=== PATIENT | male | born 1945 | race Caucasian/White ===

== ENCOUNTER 2016-12-10 15:35 | Inpatient (IN) | payer MEDICARE ==
--- NOTE | 2016-12-10 17:20 | ED ---
Wound/Laceration HPI - General Source: patient, RN notes reviewed Mode of arrival: ambulatory Limitations: no limitations <Alen Meeks - Last Filed: 12/10/16 18:37> <Mushtaq Quintanilla - Last Filed: 12/10/16 21:50> - General Chief Complaint: Wound/Laceration Stated Complaint: L foot pain Time Seen by Provider: 12/10/16 17:00 - History of Present Illness Initial Comments: 71-year-old male presents emergency Department with chief complaint of left foot wound. Patient states that his been dealing with a foot wound for several months. Patient had a second toe amputation in August. Patient has a first and second toe amputation out. Patient states that he has a wound VAC on that area. Patient states he now has a lateral foot wound and increase in size. Patient states that they believe this is infected with increased pain, redness. Patient has known peripheral vascular disease. Patient sees Dr. Franco at the wound center. Patient was seen by visiting nurse today who called Salvador in which she advised him to come emergency department secondary to increase in size and possible osteomyelitis. Patient states that he just finished Cipro yesterday in which she was on a course for 30 days. Patient denies any fever, chills. Denies any calf pain or calf swelling. (Alen Meeks) - Related Data Home Medications Medication Instructions Recorded Confirmed Atorvastatin Calcium 10 mg PO HS 08/29/16 12/10/16 Insulin NPH Hum/Reg Insulin Hm 22 unit SQ AC-BID 09/15/16 12/10/16 [humuLIN 70/30 Kwikpen] cloNIDine HCL [Catapres] 0.1 mg PO BID 10/25/16 12/10/16 Ascorbic Acid [Vitamin C] 500 mg PO TID 12/10/16 12/10/16 Ciprofloxacin HCl [Cipro] 500 mg PO Q12HR 12/10/16 12/10/16 Losartan Potassium [Cozaar] 100 mg PO DAILY 12/10/16 12/10/16 Metoprolol Tartrate [Lopressor] 100 mg PO BID 12/10/16 12/10/16 Naproxen Sodium [Aleve] 440 mg PO DAILY 12/10/16 12/10/16 Allergies Allergy/AdvReac Type Severity Reaction Status Date / Time amlodipine Allergy Anaphylaxis Verified 12/10/16 16:17 lisinopril Allergy tongue Verified 11/29/16 13:08 swelling vancomycin Allergy Unknown Verified 12/10/16 21:05 Review of Systems ROS Other: All systems not noted in ROS Statement are negative. <Alen Meeks - Last Filed: 12/10/16 18:37> ROS Other: All systems not noted in ROS Statement are negative. <Mushtaq Quintanilla - Last Filed: 12/10/16 21:50> ROS Statement: Those systems with pertinent positive or pertinent negative responses have been documented in the HPI. Past Medical History Past Medical History: Diabetes Mellitus, Deep Vein Thrombosis (DVT), Hyperlipidemia, Hypertension Additional Past Medical History / Comment(s): neuropathy, stage 3 kidney disease ; HX of DVt's in legs arm, chest; chronic wound left foot History of Any Multi-Drug Resistant Organisms: MRSA Date of last positivie culture/infection: 2006 MDRO Source:: lt. 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 Has lived in [place] as well as [place]. He did spend 25 years and [place]. We're worked as a [employer]. He's also been a meza. Moved back to this region so that he could be close to his 3 children. Relates he stopped smoking several years ago. He has no significant history of alcohol or recreational drug use. No international travel. No experience. No animal exposures Smoking Status: Never smoker Past Alcohol Use History: None Reported Past Drug Use History: None Reported - Past Family History Father Family Medical History: Deep Vein Thrombosis (DVT) <Alen Meeks - Last Filed: 12/10/16 18:37> General Exam Limitations: no limitations General appearance: alert, in no apparent distress Head exam: Present: atraumatic, normocephalic, normal inspection Neck exam: Present: normal inspection. Absent: tenderness, meningismus, lymphadenopathy Respiratory exam: Present: normal lung sounds bilaterally. Absent: respiratory distress, wheezes, rales, rhonchi, stridor Cardiovascular Exam: Present: regular rate, normal rhythm, normal heart sounds. Absent: systolic murmur, diastolic murmur, rubs, gallop, clicks Extremities exam: Present: other (Left foot there is an amputation noted of the first and second digit with wound VAC over the second digit there is a lateral foot wound at the MTP region which measures approximately 1 cm x 1 cm and 0.5 cm deep, there is surrounding erythema and purulent drainage noted wound culture was obtained) Skin exam: Present: warm, dry <Alen Meeks - Last Filed: 12/10/16 18:37> Medical Decision Making - Lab Data Result diagrams: 12/10/16 17:35 12/10/16 17:35 <Alen Meeks - Last Filed: 12/10/16 18:37> - Lab Data Result diagrams: 12/10/16 17:35 12/10/16 17:35 <Mushtaq Quintanilla - Last Filed: 12/10/16 21:50> - Medical Decision Making 71-year-old male presented for left foot wound. On x-ray there appears to be some changes to the fifth metatarsal concerns for approximately this. Patient be admitted at this time for IV antibiotics. (Alen Meeks) While in emergency room the patient started to vomit a large amount of the previous meal. Became diaphoretic eyes rolled back. This lasted approximately 3 minutes. Patient then returned to baseline alert and oriented with a normal neuro exam. Family reports the patient had had problems with nausea vomiting vancomycin in the past. Never had any anaphylactic type reaction. No history of seizures. Patient was given IV Benadryl, Pepcid and Solu-Medrol. His vancomycin was stopped he only received a small amount and will be switched to clindamycin. Checks x-rays being taken to rule out aspiration.. Dr. Quintanilla Chest x-ray is done AP and lateral view and reviewed by radiologist radiologist his impression is; heart and mediastinum are normal. There is some mild linear density at the right lung base. There is no heart failure. There are no hilar masses. Trachea is midline. Costophrenic angles are clear. Bony thorax is intact. Impression; mild subsegmental atelectasis at the right lung base. Normal heart. No pulmonary consolidation. As read by Dr. Leslie The patient is doing much better at this time. Back to baseline per patient and at bedside. Patient will be sent to the floor. Dr[facility] - Lab Data Lab Results 12/10/16 12/10/16 Range/Units 17:35 17:35 WBC 8.8 (3.8-10.6) k/uL RBC 4.94 (4.30-5.90) m/uL Hgb 13.6 (13.0-17.5) gm/dL Hct 41.1 (39.0-53.0) % MCV 83.1 D (80.0-100.0) fL MCH 27.6 (25.0-35.0) pg MCHC 33.2 (31.0-37.0) g/dL RDW 14.7 (11.5-15.5) % Plt Count 170 D (150-450) k/uL Neutrophils % 80 % Lymphocytes % 8 % Monocytes % 6 % Eosinophils % 4 % Basophils % 0 % Neutrophils # 7.1 (1.3-7.7) k/uL Lymphocytes # 0.7 L (1.0-4.8) k/uL Monocytes # 0.5 (0-1.0) k/uL Eosinophils # 0.4 (0-0.7) k/uL Basophils # 0.0 (0-0.2) k/uL ESR 52 H (0-15) mm/hr Sodium 140 (137-145) mmol/L Potassium 5.2 H (3.5-5.1) mmol/L Chloride 105 (98-107) mmol/L Carbon Dioxide 22 (22-30) mmol/L Anion Gap 13 mmol/L BUN 30 H (9-20) mg/dL Creatinine 1.60 H (0.66-1.25) mg/dL Est GFR (MDRD) Af Amer 52 (>60 ml/min/1.73 sqM) Est GFR (MDRD) Non-Af 43 (>60 ml/min/1.73 sqM) Glucose 180 H (74-99) mg/dL Calcium 9.1 (8.4-10.2) mg/dL Total Bilirubin 0.8 (0.2-1.3) mg/dL AST 16 L (17-59) U/L ALT 32 (21-72) U/L Alkaline Phosphatase 116 (38-126) U/L C-Reactive Protein 37.4 H (<10.0) mg/L Total Protein 7.2 (6.3-8.2) g/dL Albumin 4.0 (3.5-5.0) g/dL Disposition <Alen Meeks - Last Filed: 12/10/16 18:37> <Mushtaq Quintanilla - Last Filed: 12/10/16 21:50> Clinical Impression: Diabetic foot ulcer, Osteomyelitis of left foot Disposition: ADMITTED IP TO THIS HOSP Condition: Stable
[2016-12-10 17:53] LABS: Basophils % (A) 0 %; CH 27.4; CHCM 33.1; Eosinophils # (A) 0.4 k/uL (0-0.7); Eosinophils % (A) 4 %; HCT 41.1 % (39.0-53.0); HDW 3.11; HGB 13.6 gm/dL (13.0-17.5); Luc # (Auto) 0.15; Luc % (Auto) 2; Lymphocytes # (A) 0.7 k/uL (1.0-4.8); Lymphocytes % (A) 8 %; MCH 27.6 pg (25.0-35.0); MCHC 33.2 g/dL (31.0-37.0); Mean Platelet Volume 10.6; Monocytes # (A) 0.5 k/uL (0-1.0); Monocytes % (A) 6 %; Neutrophils # (A) 7.1 k/uL (1.3-7.7); Neutrophils % (A) 80 %; RBC 4.94 m/uL (4.30-5.90); RDW 14.7 % (11.5-15.5); WBC 8.8 k/uL (3.8-10.6); WBC (Perox) 9.17
[2016-12-10 17:54] LABS: MCV 83.1 fL (80.0-100.0)
[2016-12-10 18:06] LABS: C Reactive Protein 37.4 mg/L (<10.0); Calcium 9.1 mg/dL (8.4-10.2); Potassium 5.2 mmol/L (3.5-5.1); Total Bilirubin 0.8 mg/dL (0.2-1.3); Total Protein 7.2 g/dL (6.3-8.2)
--- NOTE | 2016-12-10 18:15 | XR ---
EXAMINATION TYPE: XR foot complete LT DATE OF EXAM: 12/10/2016 5:53 PM COMPARISON: NONE HISTORY: Wound on the lateral foot TECHNIQUE: 3 views FINDINGS: There is multiple amputation deformities of the left foot at the level of first second and third metatarsal heads. There is some tubing over the distal second metatarsal which appears to have had be second metatarsal head amputated. I see no focal bone destruction. The lateral aspect of the f oot shows no focal bone destruction. IMPRESSION: Multiple amputation deformities. No evidence of oste omyelitis.
[2016-12-10] MEDS ORDERED: IV VANCOMYCIN PER PHARMACY 1 EACH MISC MISCELLANE PRN (18:38)
[2016-12-10] MEDS ORDERED: ONDANSETRON 4 MG/2 ML VIAL IVP PRN (18:39)
[2016-12-10] MEDS ORDERED: NALOXONE 0.4 MG/ML 1 ML VIAL IV PRN (18:39)
[2016-12-10] MEDS ORDERED: MORPHINE SULFATE 4 MG/ML SYRINGE IV PRN (18:39)
[2016-12-10] MEDS: cloNIDine HCL 0.1 MG TAB PO SCH (18:52)
[2016-12-10] MEDS ORDERED: METOPROLOL TARTRATE 25 MG TAB PO STA (18:52)
[2016-12-10] MEDS ORDERED: VANCOMYCIN 1,750 MG in SODIUM CHLORIDE 0.9% 250 ML IVPB ONE (19:00)
[2016-12-10 19:03] LABS: Erythrocyte Sedimentation Rate 52 mm/hr (0-15)
[2016-12-10] MEDS ORDERED: diphenhydrAMINE 50 MG/ML 1 ML VIAL IVP PRN (20:36)
[2016-12-10] MEDS ORDERED: methylPREDNISolone SOD SUCCI 125 MG/2 ML VIAL IV STA (20:59)
[2016-12-10] MEDS ORDERED: FAMOTIDINE 20 MG/2 ML VIAL IV STA (20:59)
[2016-12-10 21:02] LABS: Glucose,Whole Blood 235 mg/dL (75-99)
[2016-12-10] MEDS ORDERED: CLINDAMYCIN 600 MG in DEXTROSE 5% IN WATER 50 ML IVPB STA ×2 (21:06)
--- NOTE | 2016-12-10 21:42 | XR ---
EXAMINATION TYPE: XR chest 2V DATE OF EXAM: 12/10/2016 9:34 PM COMPARISON: NONE HISTORY: Aspiration. TECHNIQUE: Frontal and lateral views of the chest are obtained. FINDINGS: Heart and mediastinum are normal. There is some mild linear density at the right lung base . There is no heart failure. There are no hilar masses. Trachea is midline. Costophrenic angles are c lear. The bony thorax is intact. IMPRESSION: Mild subsegmental atelectasis at the right lung base. Normal heart. No pulmonary consolid ation.
[2016-12-10] MEDS ORDERED: METOCLOPRAMIDE 5 MG/ML 2 ML VIAL IVP STA (21:55)
[2016-12-10] MEDS: SODIUM CHLORIDE 0.9% 1,000 ML IV SCH (21:58)
[2016-12-10 23:17] VITALS: BMI 28.7
[2016-12-10] MEDS: ATORVASTATIN 10 MG TAB PO SCH (23:40)
[2016-12-11] MEDS ORDERED: INSULIN NPH/REG INSULIN 70/30 300 UNIT/3 ML VIAL SQ SCH (07:30)
[2016-12-11 08:13] LABS: Glucose,Whole Blood 370 mg/dL (75-99)
[2016-12-11] MEDS: cloNIDine HCL 0.1 MG TAB PO SCH (08:26)
[2016-12-11] MEDS: METOPROLOL TARTRATE 50 MG TAB PO SCH ×2 (08:26→21:51)
[2016-12-11] MEDS ORDERED: LOSARTAN 50 MG TAB PO SCH (09:00)
[2016-12-11] MEDS ORDERED: VANCOMYCIN 1,750 MG in SODIUM CHLORIDE 0.9% 250 ML IVPB SCH (09:00)
[2016-12-11 09:45] LABS: Glucose,Whole Blood 481 mg/dL (75-99)
[2016-12-11 09:45] LABS: Glucose,Whole Blood 489 mg/dL (75-99)
[2016-12-11 10:16] LABS: Glucose,Whole Blood 478 mg/dL (75-99)
[2016-12-11 10:18] LABS: Glucose,Whole Blood 500 mg/dL (75-99)
[2016-12-11] MEDS ORDERED: cloNIDine HCL 0.1 MG TAB PO STA (11:11)
[2016-12-11] MEDS: SODIUM CHLORIDE 0.9% 1,000 ML IV SCH (11:22)
[2016-12-11 11:47] LABS: Glucose,Whole Blood 529 mg/dL (75-99)
[2016-12-11] MEDS: INSULIN REGULAR 100 UNIT in SODIUM CHLORIDE 0.9% 100 ML IV SCH ×2 (12:00→15:28)
[2016-12-11] MEDS ORDERED: NAPROXEN 250 MG TAB PO SCH (12:15)
[2016-12-11] MEDS ORDERED: INSULIN LISPRO (humaLOG) 300 UNIT/3 ML VIAL SQ SCH (12:30)
--- NOTE | 2016-12-11 12:59 | P.GSCN ---
History of Present Illness Consult date: 12/11/16 Reason for Consult: osteomyelitis, deep tissue infection left forefoot, critical left foot ischemia Requesting physician: Rk Crockett History of present illness: impression; 1. infected left foot ulcer with osteomyelitis of the 5th metatarsal head, critical left foot ischemia 2. s/p left popliteal to posterior tibial bypass that has failed 3. diabetes mellitus 4. stage III CKD 5. uncontrolled diabetes mellitus plan; 1. begin IV antibiotics; culture results are pending 2. will review arteriogram performed at [facility] in September 2016; re: options for revascularization appear limited based on history, patient may require left below knee amputation for wound healing and control of infection 3. dressing changes as ordered 4. following; Dr. Franco will see on 12/13/2016 71 y/o man, very well known to DR. Franco's service, underwent left second and third toe amputations in August 2016 and developed left foot ulceration overlying left 5th metatarsal head. Has been on course of oral Cipro that recently finished on 12/09/2016. Developed worsening pain in left forefoot over the past two days. Seen by home health nurse who had concerns about infection. Patient was seen in ER and given IV vanco; developed anaphylactic reaction that included vomiting. Blood sugar is currently >[address] CMHx; DM, HTN, PAD, Stage III CKD, hyperlipidemia PSHx; bilateral popliteal to posterior tibial bypass; left bypass is occluded, herniorraphy, right third toe amputation, left great toe amputation, DVT in upper and lower extrmities, Habits; denies tobacco, EtOH, or drugs FHx; non-contributory PE: BP = 214/120, 82, 18, AF HEENT: no bruits, no JVD ABD; soft, non-tender, no palpable pulsatile organomegaly EXTR; femoral and popliteal pulses are palpable; pedal pulses are not palpable bilaterally; there is a pulse in the right popliteal to posterior tibial graft; right foot is viable with healed 3rd toe amputation site; left foot demonstrates no palpable pedal pulses; the second and third toe amputation site demonstrates pale granulation tissue with no rafael purulence; the left lateral ulcer overlying the metatarsal head has a small amount of purulent drainage; the tissue overlying the metatarsal head separates easily and is in direct contact with probe; there is no ascending infection that is immediately visible and no abscess Past Medical History Past Medical History: Diabetes Mellitus, Deep Vein Thrombosis (DVT), Hyperlipidemia, Hypertension Additional Past Medical History / Comment(s): neuropathy, stage 3 kidney disease ; HX of DVt's in legs, arm, chest; chronic wound left foot History of Any Multi-Drug Resistant Organisms: MRSA Year Discovered:: 2006 MDRO Source:: lt. 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 He did spend 25 years and [place]. We're worked as a [employer]. He's also been a meza. Moved back to this region so that he could be close to his 3 children. Relates he stopped smoking several years ago. He has no significant history of alcohol or recreational drug use. No international travel. No experience. No animal exposures Smoking Status: Never smoker Past Alcohol Use History: None Reported Past Drug Use History: None Reported - Past Family History Father Family Medical History: Deep Vein Thrombosis (DVT) Medications and Allergies Home Medications Medication Instructions Recorded Confirmed Type Atorvastatin Calcium 10 mg PO HS 08/29/16 12/10/16 History Insulin NPH Hum/Reg Insulin Hm 22 unit SQ AC-BID 09/15/16 12/10/16 History [humuLIN 70/30 Kwikpen] cloNIDine HCL [Catapres] 0.1 mg PO BID 10/25/16 12/10/16 History Ascorbic Acid [Vitamin C] 500 mg PO TID 12/10/16 12/10/16 History Ciprofloxacin HCl [Cipro] 500 mg PO Q12HR 12/10/16 12/10/16 History Losartan Potassium [Cozaar] 100 mg PO DAILY 12/10/16 12/10/16 History Metoprolol Tartrate [Lopressor] 100 mg PO BID 12/10/16 12/10/16 History Naproxen Sodium [Aleve] 440 mg PO DAILY 12/10/16 12/10/16 History Allergies Allergy/AdvReac Type Severity Reaction Status Date / Time amlodipine Allergy Anaphylaxis Verified 12/10/16 16:17 lisinopril Allergy tongue Verified 11/29/16 13:08 swelling vancomycin Allergy Unknown Verified 12/10/16 21:05 Surgical - Exam Vital Signs Temp Pulse Resp BP Pulse Ox 97.7 F 63 18 197/91 96 12/10/16 16:13 12/10/16 16:13 12/10/16 16:13 12/10/16 16:13 12/10/16 16:13 Results - Labs 12/10/16 17:35 12/10/16 17:35 Abnormal Lab Results - Last 24 Hours (Table) 12/10/16 12/11/16 12/11/16 Range/Units 21:00 07:43 09:33 POC Glucose (mg/dL) 235 H 370 H 481 H (75-99) mg/dL 12/11/16 12/11/16 12/11/16 Range/Units 09:34 10:14 10:15 POC Glucose (mg/dL) 489 H 478 H 500 H (75-99) mg/dL 12/11/16 Range/Units 11:46 POC Glucose (mg/dL) 529 H (75-99) mg/dL
[2016-12-11 13:06] LABS: Glucose,Whole Blood 462 mg/dL (75-99)
[2016-12-11 13:32] LABS: Glucose,Whole Blood 458 mg/dL (75-99)
[2016-12-11] MEDS: INSULIN LISPRO (humaLOG) 300 UNIT/3 ML VIAL SQ SCH ×2 (13:52→17:50)
[2016-12-11] MEDS: ASCORBIC ACID 500 MG TAB PO SCH ×3 (13:58→21:51)
[2016-12-11] MEDS: ENOXAPARIN 40 MG/0.4 ML SYRINGE SQ SCH (13:59)
[2016-12-11 14:06] LABS: Hemoglobin A1C 8.4 % (4.2-6.1)
[2016-12-11 14:10] LABS: Glucose,Whole Blood 432 mg/dL (75-99)
--- NOTE | 2016-12-11 14:20 | P.PN ---
Progress Note - Text Arteriogram performed 10/18/2017 reviewed. Demonstrates patent aortoiliac arteries bilaterally. The common, profunda and superficial femoral arteries are patent bilaterally. On the left there is severe infrapopliteal arterial occlusive disease with no named vessels noted in the lower left leg. The pedal arch is not visualized. impression; 1. irreconstructible left leg arterial occlusive disease below the popliteal artery with infected soft tissues and osteomylelitis of left foot plan; 1. as discussed in consult; best option for wound healing and control of sepsis is below knee amputation and related procedures
[2016-12-11 15:06] LABS: Glucose,Whole Blood 397 mg/dL (75-99)
[2016-12-11 15:23] LABS: Glucose,Whole Blood 348 mg/dL (75-99)
[2016-12-11 15:49] LABS: Glucose,Whole Blood 327 mg/dL (75-99)
[2016-12-11 16:30] LABS: Glucose,Whole Blood 280 mg/dL (75-99)
[2016-12-11 17:07] LABS: Glucose,Whole Blood 220 mg/dL (75-99)
--- NOTE | 2016-12-11 18:53 | HP ---
DATE OF ADMISSION: 12/10/2016 PRESENTING COMPLAINT: Left foot infection. HISTORY OF PRESENTING COMPLAINT: This is a 71 -year-old patient who follows with Dr. Victor Hugo Franco in the wound care center with extensive medical history including diabetes mellitus, type II, hypertension, hyperlipidemia, patient also has got chronic kidney disease stage III, peripheral neuropathy and peripheral artery disease, bilateral bypasses. The patient underwent left second and third toe amputation in August 2016, developed left foot ulceration over the left fifth metatarsal. Patient was given oral ciprofloxacin. Just finished a course yesterday. Patient developing worse foot pain and looking more infected. Patient also sugars running up, went up to about over 500 and I ordered insulin drip earlier today. Patient already had a previous bypass to both the legs. REVIEW OF SYSTEMS: CONSTITUTIONAL: Tired. HEENT: None. RESPIRATORY: None. CARDIOVASCULAR: None. GASTROINTESTINAL: None. GENITOURINARY: None. MUSCULOSKELETAL: Dermatologic: As above. LYMPHATICS: None. PSYCHIATRY: None. NEUROLOGICAL: Numbness in both feet. PAST MEDICAL HISTORY: Diabetes mellitus type 2, bilateral DVTs in the past, hypertension, hyperlipidemia, chronic kidney disease, stage III, peripheral neuropathy, peripheral artery disease. 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 Bypass in both the legs. SOCIAL HISTORY: . 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 The patient stopped smoking many years ago. No significant alcohol syndrome. Family history of DVT. HOME MEDICATIONS: 1. Aleve 440 mg p.o. daily. 2. Vitamin C 500 mg p.o. t.i.d., 3. Catapres 0.1 mg p.o. t.i.d. 4. Lopressor 100 mg p.o. b.i.d. 5. Cozaar 100 mg p.o. daily. 6. Humulin 70/30 22 units subcu a.c. b.i.d. 7. Lipitor 10 mg p.o. q.h.s. 8. Ciprofloxacin 500 mg q12. Last dose was yesterday. ALLERGIES: AMLODIPINE, LISINOPRIL AND VANCOMYCIN. On examination: Vital signs on presentation: Temperature 97.7, pulse 53, respirations 18, blood pressure 197/91, pulse ox 96% on room air. GENERAL APPEARANCE: Average build, sitting up, comfortable. EYES: Pupils equal. Conjunctivae normal. HEENT: External appearance of nose and ears normal. Oral cavity normal. NECK: JVD not raised. Mass not palpable. RESPIRATORY: Effort normal. Lungs are clear. CARDIOVASCULAR: First and second sounds normal. No edema. ABDOMEN: Soft, nontender. Liver and spleen not palpable. LYMPHATICS: No lymph nodes palpable in the neck or axillae. PSYCHIATRY: Alert and oriented x3. Mood and affect normal. NEUROLOGICAL: Pupils equal. Cranial nerves grossly intact. Decreased sensation distally. EXTREMITIES: Left foot wound pictures in the previous chart. INVESTIGATIONS: White count 8.8, hemoglobin 13.6, potassium 5.0, BUN 30, creatinine 1.60. Accu-Cheks a 182, 235 and went up to ( ). ASSESSMENT: 1. Left foot wound having failed outpatient treatment with known severe peripheral artery disease and the results of patient recently had angiography, results of which not known. 2. Diabetes mellitus type 2, chronically on insulin causing peripheral neuropathy. 3. Hypertension, chronic uncontrolled. 4. Hyperlipidemia. 5. Chronic kidney stage III from diabetic nephropathy and probably from hypertensive nephrosclerosis. PLAN: Since sugars are under control, the patient put on insulin drip. The patient ( ) put on a ceftaroline. Infectious disease were consulted, so is Dr. Franco. Home medications are resumed. Patient taking naproxen at home. That will be discontinued. We will give IV fluids to see if this improves renal function. Care was discussed in detail with the patient and at the bedside. Questions were answered.
[2016-12-11 19:18] LABS: Glucose,Whole Blood 207 mg/dL (75-99)
[2016-12-11 21:07] LABS: Glucose,Whole Blood 190 mg/dL (75-99)
[2016-12-11] MEDS: ATORVASTATIN 10 MG TAB PO SCH (21:51)
[2016-12-11] MEDS: cloNIDine HCL 0.2 MG TAB PO SCH (21:51)
[2016-12-11 23:27] LABS: Glucose,Whole Blood 142 mg/dL (75-99)
[2016-12-12 01:14] LABS: Glucose,Whole Blood 130 mg/dL (75-99)
[2016-12-12 03:11] LABS: Glucose,Whole Blood 139 mg/dL (75-99)
[2016-12-12] MEDS: SODIUM CHLORIDE 0.9% 1,000 ML IV SCH ×3 (05:18→19:19)
[2016-12-12 05:22] LABS: Glucose,Whole Blood 152 mg/dL (75-99)
[2016-12-12 07:29] LABS: Glucose,Whole Blood 133 mg/dL (75-99)
[2016-12-12 07:45] LABS: Potassium 4.8 mmol/L (3.5-5.1)
[2016-12-12] MEDS: METOPROLOL TARTRATE 50 MG TAB PO SCH ×2 (08:01→20:07)
[2016-12-12] MEDS: ENOXAPARIN 40 MG/0.4 ML SYRINGE SQ SCH (08:01)
[2016-12-12] MEDS: LOSARTAN 50 MG TAB PO SCH ×2 (08:01→20:07)
[2016-12-12] MEDS: ASCORBIC ACID 500 MG TAB PO SCH ×3 (08:02→20:07)
[2016-12-12] MEDS: cloNIDine HCL 0.2 MG TAB PO SCH ×2 (08:02→20:07)
[2016-12-12] MEDS: INSULIN LISPRO (humaLOG) 300 UNIT/3 ML VIAL SQ SCH ×3 (08:02→17:51)
[2016-12-12 09:13] LABS: Glucose,Whole Blood 218 mg/dL (75-99)
[2016-12-12 11:25] LABS: Glucose,Whole Blood 197 mg/dL (75-99)
--- NOTE | 2016-12-12 12:26 | P.PN ---
Progress Note - Text patient feels much better this morning still on insulin drip no adverse events overnight AF VSS EXTR; left leg is essentially unchanged impression/plan 1. critical limb ischemia with irreconstructable arterial disease, osteomyelitis and suspected deep tissue infection continue current medical regimen Dr. Franco to discuss further surgical management 12/13/2016 patient does not seem amenable to major amputation at this time
[2016-12-12 13:02] LABS: Glucose,Whole Blood 141 mg/dL (75-99)
[2016-12-12 15:03] LABS: Glucose,Whole Blood 190 mg/dL (75-99)
[2016-12-12] MEDS: LINEZOLID 600 MG in DEXTROSE/WATER 1 300ML.BAG IVPB SCH (16:17)
[2016-12-12 16:59] LABS: Glucose,Whole Blood 160 mg/dL (75-99)
[2016-12-12 19:00] LABS: Glucose,Whole Blood 198 mg/dL (75-99)
[2016-12-12] MEDS: INSULIN REGULAR 100 UNIT in SODIUM CHLORIDE 0.9% 100 ML IV SCH (19:17)
--- NOTE | 2016-12-12 19:59 | CONS ---
DATE OF CONSULTATION: 12/12/2016 REASON FOR CONSULTATION: Left foot wound with secondary MRSA infection. HISTORY OF PRESENT ILLNESS: The patient is a 71-year-old male who developed a pressure ulcer of his left foot. As this is from offloading shoes that he was wearing after the patient did have amputation of this second toe because of an infection. The patient has this wound going on since September 2016 and is being followed by Dr. Franco in the [facility]. Patient did notice having more pain in his left foot area though no significant redness or drainage. No fever and no chills. The patient was evaluated by the [facility] Care nurse and the patient advised to go to the hospital. The patient subsequently has been evaluated by the ER physician. The patient has been admitted to the hospital. The patient did have x-rays of his left foot which did show some multiple amputations and no evidence of any focal destruction. The patient did have local wound culture which is showing presumptive MRSA. The patient was started on linezolid because of inability of the Teflaro and patient did have a history of VANCOMYCIN ALLERGY. ID was consulted for further recommendation regarding antibiotic therapy. REVIEW OF SYSTEMS: CONSTITUTIONAL: Positive for weakness. No high-grade fever. EYES: No complaint. ENT: No complaint. RESPIRATORY: No complaint. GENITOURINARY: No complaint. GASTROINTESTINAL: No complaint. MUSCULOSKELETAL: As per HPI. INTEGUMENTARY: As per HPI. PSYCHOLOGICAL: No complaint. ENDOCRINE: No complaint. NEUROLOGIC: No complaint. PAST MEDICAL HISTORY: Significant for diabetes mellitus, DVT, hypertension, hyperlipidemia, chronic renal insufficiency and DVT. Left foot wound at base MRSA infection. PAST SURGICAL HISTORY: Hernia repair, malignant tumor removed from his kidney, left foot great toe and second and third toe amputation, right foot third toe amputation. SOCIAL HISTORY: No active smoking, drinking or drug use. FAMILY HISTORY: Father with history of DVT. ALLERGY TO VANCOMYCIN, LISINOPRIL AND AMLODIPINE. Medications currently include the patient is on vitamin C, Lipitor, Catapres, melatonin, Lovenox, Humalog, linezolid 600 q.12. He is on Cozaar, Lopressor, morphine sulfate, Narcan, Zofran. On examination, blood pressure is 163/73 with a pulse of 57, temperature is 97.7. He is 100% on room air. General description is an elderly male, lying in bed in no distress. No tachypnea or accessory muscle of respiration use. HEENT examination shows no pallor. No scleral icterus. Oral mucous membrane is dry. NECK: Trachea central, no thyromegaly. LUNGS: Unlabored breathing. Clear to auscultation anteriorly. HEART: S1, S2. Regular rate and rhythm. ABDOMEN: Soft. No tenderness. LEFT FOOT: Left border with infected callus and minimal surrounding erythema. No drainage. Left foot second toe amputation site looks clean. No evidence of any drainage. SKIN EXAMINATION: No rash. No mass palpable. NEUROLOGICAL: Patient awake, alert, oriented x3. Mood and affect normal. LABS: Hemoglobin is 13.6, white count of 8.8 with a BUN of 45, creatinine 1.7. Electrolytes have been normal. Wound cultures with presumptive MRSA. Blood cultures so far negative. DIAGNOSTIC IMPRESSION AND PLAN: Patient with left foot infected callus on the lateral border with secondary infection with methicillin-resistant Staphylococcus aureus in a patient who has a history of vancomycin allergy secondary to causing a seizure and unavailability of Teflaro at current facility. PLAN: 1. Await the surgical evaluation by Dr. Franco and possible removal of this infected callus and that would determine the depth of infection as well. 2. Will continue the patient on linezolid; however once the Teflaro is available will recommend switching him over to Teflaro. 3. Local wound care with [facility]. 4. Will follow up on his clinical condition and cultures to further adjust the medication if needed. Thank you for this consultation. Will follow this patient along with you. COURTNEY
[2016-12-12] MEDS: ATORVASTATIN 10 MG TAB PO SCH (20:07)
[2016-12-12 21:10] LABS: Glucose,Whole Blood 211 mg/dL (75-99)
[2016-12-12 23:01] LABS: Glucose,Whole Blood 156 mg/dL (75-99)
[2016-12-13 00:58] LABS: Glucose,Whole Blood 95 mg/dL (75-99)
[2016-12-13 02:05] LABS: Glucose,Whole Blood 103 mg/dL (75-99)
[2016-12-13] MEDS: LINEZOLID 600 MG in DEXTROSE/WATER 1 300ML.BAG IVPB SCH ×2 (02:08→13:24)
[2016-12-13 03:00] LABS: Glucose,Whole Blood 113 mg/dL (75-99)
[2016-12-13 03:59] LABS: Glucose,Whole Blood 146 mg/dL (75-99)
[2016-12-13 06:05] LABS: Glucose,Whole Blood 133 mg/dL (75-99)
[2016-12-13] MEDS ORDERED: INSULIN NPL/INSULIN LISPRO 100 UNIT/ML 10 ML VIAL (Humalog 75/25) SQ SCH (07:30)
[2016-12-13] MEDS: ASCORBIC ACID 500 MG TAB PO SCH ×3 (08:12→20:54)
[2016-12-13] MEDS: LOSARTAN 50 MG TAB PO SCH ×2 (08:12→20:55)
[2016-12-13] MEDS: cloNIDine HCL 0.2 MG TAB PO SCH ×2 (08:12→20:54)
[2016-12-13] MEDS: METOPROLOL TARTRATE 50 MG TAB PO SCH ×2 (08:13→20:54)
[2016-12-13 08:15] LABS: Glucose,Whole Blood 120 mg/dL (75-99)
[2016-12-13 10:08] LABS: Glucose,Whole Blood 225 mg/dL (75-99)
[2016-12-13] MEDS: ENOXAPARIN 40 MG/0.4 ML SYRINGE SQ SCH (11:21)
--- NOTE | 2016-12-13 11:26 | PN ---
DATE OF SERVICE: 12/12/2016 PRESENTING COMPLAINT: Left foot abscess. INTERVAL HISTORY: This is a patient with severe peripheral artery disease with left foot assess with prior intervention, started on Zyvox. Due to uncontrolled sugar has been on insulin drip, tolerating a diet. Being followed by Dr. Franco's team from vascular surgery. REVIEW OF SYSTEMS: CONSTITUTIONAL: Findings as above. CARDIOVASCULAR: Findings as above. GI: Findings as above. Pain is controlled. Current medications include insulin drip, IV linezolid. On examination, temperature 97.7, pulse 57, respirations 18, blood pressure 163/73, pulse ox 100% on room air. GENERAL APPEARANCE: Sitting up. Comfortable. EYES: Pupils equal. Conjunctivae normal. NECK: JVD not raised. Mass not palpable. RESPIRATORY: Effort normal. Lungs are clear. CARDIOVASCULAR: First and second sounds normal. No edema. ABDOMEN: Soft, ( ) palpable. Left foot wound is present, more detailed in vascular notes. INVESTIGATIONS: Accu-Cheks are noted. Potassium 4.8. BUN 45, creatinine 1.78. ASSESSMENT: 1. Left foot wound/abscess having failed outpatient treatment with known severe peripheral artery disease secondary to diabetes. 2. Diabetes mellitus type II, chronic insulin, causing peripheral neuropathy. 3. Essential hypertension, currently uncontrolled. 4. Hyperlipidemia. 5. Chronic kidney disease, stage III from diabetic nephropathy and probably hypertensive nephrosclerosis. PLAN: Continue current medication and treatment plan. Follow up with ID and vascular surgery. Will d/c patient's insulin drip in the morning and switch to Humulin 70/30. Await further decision from vascular for possible surgical intervention. Patient's wounds are growing MRSA.
[2016-12-13 12:25] LABS: Glucose,Whole Blood 190 mg/dL (75-99)
[2016-12-13] MEDS ORDERED: INSULIN NPH/REG INSULIN 70/30 300 UNIT/3 ML VIAL SQ SCH (12:30)
[2016-12-13] MEDS: SODIUM CHLORIDE 0.9% 1,000 ML IV SCH (13:26)
[2016-12-13 14:25] LABS: Glucose,Whole Blood 238 mg/dL (75-99)
--- NOTE | 2016-12-13 16:02 | P.PN ---
Progress Note - Text 71 old white male known to me from wound clinic patient had a left second toe amputation done in the past for infected gangrene he is been coming to the wound clinic for local wound care Patient had angiogram done which showed severe infrapopliteal occlusive disease not a candidate for revascularization patient also has a wound on the lateral aspect of the left foot Medical history history of diabetes peripheral vascular disease Eschen is an IV antibiotic under care of Dr. Cowart the wound bed looks clean we will continue with local wound care and IV antibiotic we have discussed about the hyperbaric chamber patient will be followed in the wound clinic when discharged from the hospital in the meantime continue with local wound care and IV antibiotic
[2016-12-13 17:32] LABS: Glucose,Whole Blood 253 mg/dL (75-99)
[2016-12-13] MEDS: INSULIN NPL/INSULIN LISPRO 100 UNIT/ML 10 ML VIAL (Humalog 75/25) SQ SCH (18:33)
--- NOTE | 2016-12-13 20:13 | P.PN ---
Subjective Principal diagnosis: Ischemic left foot Objective - Vital Signs Vital signs: Vital Signs Temp 98.2 F 12/13/16 15:00 Pulse 65 12/13/16 16:00 Resp 16 12/13/16 16:00 BP 180/91 12/13/16 15:00 Pulse Ox 98 12/13/16 15:00 Intake & Output 12/13/16 12/13/16 12/14/16 06:59 18:59 06:59 Intake Total 747.550 Balance 747.550 Intake: Intake, IV Titration 27.550 Amount Insulin Regular 100 unit 27.550 In Sodium Chloride 0.9% 100 ml @ Titrate IV .Q0M GRAHAM Rx#:[id number] Oral 720 Other: Voiding Method Bedside Commode Bedside Commode # Voids 3 3 - Exam 71-year-old male who is 6 foot 3 and height and of a sturdy build, is not in acute distress HEENT: Anicteric conjunctiva are pink and moist nasal mucosa grossly intact without significant lesions, there is no thrush. Poor dentition Neck: The neck is supple without significant lymphadenopathy or thyromegaly. Lungs: Symmetrical air entry is noted. There are rare expiratory wheezes. No bronchial sounds are noted. No egophony or tactile fremitus. Heart: Regular rate and rhythm with an audible S1-S2, no S3 loud S4. There is no significant murmur click or rub, PMI was nondisplaced. Abdomen: Positive bowel sounds soft and nontender without palpable masses or organomegaly. There was no guarding or rebound. Extremities: The upper extremities have excellent pulses they are symmetric, no significant petechiae or telangiectasia. No splinter hemorrhages were noted. The right foot reveals evidence of prior second toe amputation. The left foot is now status post a surgical amputation of the second toe as well as the metatarsal head with ongoing ulceration. As well as a ulceration to the lateral aspect left foot. Please see the nursing photography. Neuro: Awake alert oriented to person place and time. There are no acute new gross focal sensory motor deficits. Has significant peripheral neuropathy with numbness to both feet. - Labs CBC & Chem 7: 12/10/16 17:35 12/12/16 07:13 Labs: Abnormal Lab Results - Last 24 Hours (Table) 12/12/16 12/12/16 12/13/16 Range/Units 20:58 22:59 02:03 POC Glucose (mg/dL) 211 H 156 H 103 H (75-99) mg/dL 12/13/16 12/13/16 12/13/16 Range/Units 02:58 03:57 06:03 POC Glucose (mg/dL) 113 H 146 H 133 H (75-99) mg/dL 12/13/16 12/13/16 12/13/16 Range/Units 07:27 10:04 12:15 POC Glucose (mg/dL) 120 H 225 H 190 H (75-99) mg/dL 12/13/16 12/13/16 Range/Units 14:21 17:24 POC Glucose (mg/dL) 238 H 253 H (75-99) mg/dL Microbiology - Last 24 Hours (Table) 12/11/16 12:30 Gram Stain - Final Foot - Left Wound Culture - Final Methicillin resist S. aureus Laboratory Results WBC 8.8 k/uL (3.8-10.6) 12/10/16 17:35 RBC 4.94 m/uL (4.30-5.90) 12/10/16 17:35 Hgb 13.6 gm/dL (13.0-17.5) 12/10/16 17:35 Hct 41.1 % (39.0-53.0) 12/10/16 17:35 MCV 83.1 fL (80.0-100.0) D 12/10/16 17:35 MCH 27.6 pg (25.0-35.0) 12/10/16 17:35 MCHC 33.2 g/dL (31.0-37.0) 12/10/16 17:35 RDW 14.7 % (11.5-15.5) 12/10/16 17:35 Plt Count 170 k/uL (150-450) D 12/10/16 17:35 Neutrophils % 80 % 12/10/16 17:35 Lymphocytes % 8 % 12/10/16 17:35 Monocytes % 6 % 12/10/16 17:35 Eosinophils % 4 % 12/10/16 17:35 Basophils % 0 % 12/10/16 17:35 Neutrophils # 7.1 k/uL (1.3-7.7) 12/10/16 17:35 Lymphocytes # 0.7 k/uL (1.0-4.8) L 12/10/16 17:35 Monocytes # 0.5 k/uL (0-1.0) 12/10/16 17:35 Eosinophils # 0.4 k/uL (0-0.7) 12/10/16 17:35 Basophils # 0.0 k/uL (0-0.2) 12/10/16 17:35 ESR 52 mm/hr (0-15) H 12/10/16 17:35 Sodium 138 mmol/L (137-145) 12/12/16 07:13 Potassium 4.8 mmol/L (3.5-5.1) 12/12/16 07:13 Chloride 110 mmol/L (98-107) H 12/12/16 07:13 Carbon Dioxide 20 mmol/L (22-30) L 12/12/16 07:13 Anion Gap 8 mmol/L 12/12/16 07:13 BUN 45 mg/dL (9-20) H 12/12/16 07:13 Creatinine 1.78 mg/dL (0.66-1.25) H 12/12/16 07:13 Est GFR (MDRD) Af Amer 46 (>60 ml/min/1.73 sqM) 12/12/16 07:13 Est GFR (MDRD) Non-Af 38 (>60 ml/min/1.73 sqM) 12/12/16 07:13 Glucose 135 mg/dL (74-99) H 12/12/16 07:13 POC Glucose (mg/dL) 253 mg/dL (75-99) H 12/13/16 17:24 POC Glu Registered Appraiser ID Christi Baltazar Leonel 12/13/16 17:[address] Glu mg/dL 194 mg/dL 12/11/16 12:05 Hemoglobin A1c 8.4 % (4.2-6.1) H 12/11/16 12:05 Calcium 9.0 mg/dL (8.4-10.2) 12/12/16 07:13 Total Bilirubin 0.8 mg/dL (0.2-1.3) 12/10/16 17:35 AST 16 U/L (17-59) L 12/10/16 17:35 ALT 32 U/L (21-72) 01/20/17 17:35 Alkaline Phosphatase 116 U/L (38-126) 12/10/16 17:35 C-Reactive Protein 37.4 mg/L (<10.0) H 12/10/16 17:35 Total Protein 7.2 g/dL (6.3-8.2) 12/10/16 17:35 Albumin 4.0 g/dL (3.5-5.0) 12/10/16 17:35 Microbiology 12/11/16 12:30 Foot - Left Gram Stain - Final 12/11/16 12:30 Foot - Left Wound Culture - Final Methicillin resist S. aureus 12/10/16 17:35 Blood Blood Culture - Preliminary No Growth after 48 hours 12/10/16 17:35 Foot - Left Gram Stain - Final 12/10/16 17:35 Foot - Left Wound Culture - Final Methicillin resist S. aureus Assessment and Plan (1) Osteomyelitis of left foot Narrative/Plan: 71-year-old male who has a history of diabetes and difficulty with ulceration to his left foot. He has had vascular evaluations and apparently has adequate collateral flow. However is now developed worsening infection to the foot. It is likely the etiology of his acute pain and changes in status. MRSA has now been isolated. For antibiotic therapy daptomycin will be utilized. We'll asked to see if this can be utilized as a once a day in the home setting or in the outpatient setting at a facility close to his home. However he may be coming to our wound healing Center for hyperbaric oxygen therapy in the near future. Local wound care as well as the absorptive silver dressing. Which should be changed every Tuesday and Tuesday. Continued elevated at rest. Continue with the diabetic care. His pain control is now improved and the severe pain at admission is now improved. Status: Acute (2) Left foot pain Status: Acute
[2016-12-13 20:40] LABS: Glucose,Whole Blood 214 mg/dL (75-99)
[2016-12-13] MEDS: DAPTOmycin 500 MG in SODIUM CHLORIDE 0.9% 50 ML IV SCH (20:53)
[2016-12-13] MEDS: ATORVASTATIN 10 MG TAB PO SCH (20:54)
--- NOTE | 2016-12-13 22:51 | PN ---
DATE OF SERVICE: 12/13/2016 PRESENTING COMPLAINT: Left foot abscess. INTERVAL HISTORY: This is a patient with severe peripheral artery disease with left foot abscess with prior intervention. Per Dr. Franco's note, patient's grafts are not working, with poor angiographic results done at [facility]. Patient is on antibiotics. Pain is decent. Review of systems done for constitutional, cardiovascular, GI, pulmonary; relevant findings as above. Current medications are reviewed and include IV linezolid. On examination, temperature 97.5, pulse 59, respiration 16, blood pressure 156/76, pulse ox 98% on room air. GENERAL APPEARANCE: Sitting up, comfortable. EYES: Pupils equal. Conjunctivae normal. NECK: JVD not raised. Mass not palpable. RESPIRATORY: Effort normal. Lungs are clear. CARDIOVASCULAR: First and second sounds normal. No edema. ABDOMEN: Soft, nontender. Liver and spleen not palpable. Left foot wound is present. INVESTIGATIONS: Accu-Cheks are noted: 225, 119, 238. ASSESSMENT: 1. Left foot wound abscess, having failed outpatient treatment due to severe peripheral artery disease secondary to diabetes. 2. Diabetes mellitus, type 2, chronically on insulin, causing peripheral neuropathy. 3. Essential hypertension. 4. Hyperlipidemia. 5. Chronic kidney disease, stage III, from diabetic nephropathy and probably hypertensive nephrosclerosis. PLAN: Will adjust patient's Humulin 70/30 a bit further. Continue with antibiotics per ID. Dr. Franco is also thinking about hyperbaric chamber. Will follow. The wounds are growing MRSA.
[2016-12-14] MEDS: SODIUM CHLORIDE 0.9% 1,000 ML IV SCH ×2 (05:27→21:11)
[2016-12-14 07:29] LABS: Glucose,Whole Blood 100 mg/dL (75-99)
[2016-12-14] MEDS: ASCORBIC ACID 500 MG TAB PO SCH ×3 (07:57→21:12)
[2016-12-14] MEDS: cloNIDine HCL 0.2 MG TAB PO SCH ×2 (07:58→21:12)
[2016-12-14] MEDS: METOPROLOL TARTRATE 50 MG TAB PO SCH ×2 (07:58→21:11)
[2016-12-14] MEDS: LOSARTAN 50 MG TAB PO SCH ×2 (07:58→21:12)
[2016-12-14] MEDS: INSULIN NPL/INSULIN LISPRO 100 UNIT/ML 10 ML VIAL (Humalog 75/25) SQ SCH ×2 (08:03→18:02)
[2016-12-14 08:53] LABS: Potassium 4.9 mmol/L (3.5-5.1); Total Bilirubin 0.7 mg/dL (0.2-1.3); Total Protein 6.6 g/dL (6.3-8.2)
[2016-12-14 08:58] LABS: Basophils % (A) 0 %; CH 27.4; Eosinophils # (A) 0.4 k/uL (0-0.7); Eosinophils % (A) 6 %; HCT 39.3 % (39.0-53.0); HDW 3.02; Luc % (Auto) 2; Lymphocytes # (A) 0.9 k/uL (1.0-4.8); Lymphocytes % (A) 14 %; MCH 27.4 pg (25.0-35.0); MCHC 32.9 g/dL (31.0-37.0); MCV 83.2 fL (80.0-100.0); Mean Platelet Volume 9.5; Monocytes # (A) 0.6 k/uL (0-1.0); Monocytes % (A) 10 %; Neutrophils # (A) 4.3 k/uL (1.3-7.7); Neutrophils % (A) 69 %; RBC 4.73 m/uL (4.30-5.90); RDW 14.8 % (11.5-15.5); WBC 6.3 k/uL (3.8-10.6); WBC (Perox) 6.51
[2016-12-14 11:31] LABS: Glucose,Whole Blood 219 mg/dL (75-99)
[2016-12-14] MEDS ORDERED: INSULIN NPL/INSULIN LISPRO 100 UNIT/ML 10 ML VIAL (Humalog 75/25) SQ SCH (12:30)
[2016-12-14 17:26] LABS: Glucose,Whole Blood 189 mg/dL (75-99)
[2016-12-14] MEDS: ENOXAPARIN 40 MG/0.4 ML SYRINGE SQ SCH (17:49)
[2016-12-14 20:13] LABS: Glucose,Whole Blood 232 mg/dL (75-99)
[2016-12-14] MEDS: ATORVASTATIN 10 MG TAB PO SCH (21:11)
[2016-12-14] MEDS: DAPTOmycin 500 MG in SODIUM CHLORIDE 0.9% 50 ML IV SCH (21:12)
--- NOTE | 2016-12-14 21:34 | PN ---
DATE OF SERVICE: 12/14/2016 PRESENTING COMPLAINT: Left foot wound. INTERVAL HISTORY: This patient with severe peripheral artery disease presented with left foot wound. Antibiotics are in place. Pain is controlled. Patient's is at bedside. Review of systems done for constitutional, cardiovascular, GI, pulmonary; relevant findings as above. Current medications are reviewed and include IV daptomycin. On examination, temperature 98.1, pulse 65, respiration 16, blood pressure 116/78, pulse ox 97% on room air. GENERAL APPEARANCE: Sitting up, comfortable. EYES: Pupils equal. Conjunctivae normal. NECK: JVD not raised. Mass not palpable. RESPIRATORY: Effort normal. Lungs are clear. CARDIOVASCULAR: First and second sounds normal. No edema. ABDOMEN: Soft, nontender. Liver and spleen not palpable. EXTREMITIES: Left foot wound is present over the fifth metatarsal head. INVESTIGATIONS: White count 6.3. Potassium 4.9. BUN 34, creatinine 1.75. Accu-Cheks are noted; 103, 219, 189. ASSESSMENT: 1. Left food wound, having failed outpatient treatment due to severe peripheral arterial disease secondary to diabetes mellitus. 2. Diabetes mellitus, type 2, chronically on insulin, causing peripheral neuropathy. 3. Essential hypertension. 4. Hyperlipidemia. 5. Chronic kidney disease from nephropathy and hypertensive nephrosclerosis. PLAN: Continue current medication and treatment plan. I think Dr. Cowart is contemplating a PICC line. Wound has been growing MRSA. Will follow.
[2016-12-15 07:12] LABS: Glucose,Whole Blood 95 mg/dL (75-99)
[2016-12-15] MEDS: cloNIDine HCL 0.2 MG TAB PO SCH ×2 (08:32→21:16)
[2016-12-15] MEDS: LOSARTAN 50 MG TAB PO SCH ×2 (08:32→21:16)
[2016-12-15] MEDS: METOPROLOL TARTRATE 50 MG TAB PO SCH ×2 (08:32→21:16)
[2016-12-15] MEDS: ASCORBIC ACID 500 MG TAB PO SCH ×3 (08:32→21:16)
[2016-12-15] MEDS: ENOXAPARIN 40 MG/0.4 ML SYRINGE SQ SCH (08:32)
[2016-12-15] MEDS: SODIUM CHLORIDE 0.9% 1,000 ML IV SCH (08:33)
[2016-12-15] MEDS: INSULIN NPL/INSULIN LISPRO 100 UNIT/ML 10 ML VIAL (Humalog 75/25) SQ SCH ×3 (08:45→17:49)
[2016-12-15 12:14] LABS: Glucose,Whole Blood 120 mg/dL (75-99)
[2016-12-15 17:01] LABS: Glucose,Whole Blood 87 mg/dL (75-99)
[2016-12-15 21:00] LABS: Glucose,Whole Blood 106 mg/dL (75-99)
[2016-12-15] MEDS: ATORVASTATIN 10 MG TAB PO SCH (21:16)
[2016-12-15] MEDS: DAPTOmycin 500 MG in SODIUM CHLORIDE 0.9% 50 ML IV SCH (21:17)
[2016-12-16] MEDS: ENOXAPARIN 40 MG/0.4 ML SYRINGE SQ SCH (06:48)
[2016-12-16] MEDS: SODIUM CHLORIDE 0.9% 1,000 ML IV SCH ×2 (07:00→11:26)
[2016-12-16 07:40] LABS: Glucose,Whole Blood 83 mg/dL (75-99)
[2016-12-16 07:54] VITALS: BP 191/93; PULSE 75; RESP 18; TEMP 98.3
[2016-12-16] MEDS: INSULIN NPL/INSULIN LISPRO 100 UNIT/ML 10 ML VIAL (Humalog 75/25) SQ SCH ×2 (08:04→12:20)
[2016-12-16] MEDS: cloNIDine HCL 0.2 MG TAB PO SCH (08:08)
[2016-12-16] MEDS: LOSARTAN 50 MG TAB PO SCH (08:08)
[2016-12-16] MEDS: ASCORBIC ACID 500 MG TAB PO SCH ×2 (08:08→12:20)
[2016-12-16] MEDS: METOPROLOL TARTRATE 50 MG TAB PO SCH (08:08)
[2016-12-16 11:36] LABS: Glucose,Whole Blood 216 mg/dL (75-99)
--- NOTE | 2016-12-16 11:58 | IR ---
EXAMINATION TYPE: IR cvc insert >=5 years DATE OF EXAM: 12/16/2016 10:30 AM COMPARISON: NONE CLINICAL HISTORY: Infection Needs long-term intravenous access for antibiotics. PROCEDURE: After informed consent, the skin overlying the left basilic vein was localized with ultrasound and no jaleesa to be compressible and patent. An ultrasound image was obtained and submitted on the patient's c franco. The overlying skin was prepped and draped and Lidocaine was used for local anesthesia. A skin nico was made with a scalpel. Access was gained to the vein under ultrasound guidance with a 21 gau ge needle and a 0.018 inch wire was advanced. Access site was dilated with Peel-Away sheath and cath eter tailored to the appropriate length and advanced such that the distal tip is at the cavoatrial ju nction. Spot image was obtained verifying placement. Catheter was fixed to the skin with suture and a sterile dressing was placed following hemostasis. Catheter was aspirated and flushed with saline. Patient was discharged in stable condition without complication. Maximal barrier technique is utili zed. Ultrasound image is documented on the chart. Ultrasound used with sterile technique. Fluoro time and fluoroscopic images submitted to document procedure: 0.2 minutes fluoroscopy time, 53 intraoperative C-arm images IMPRESSION: STATUS POST ULTRASOUND AND FLUOROSCOPIC GUIDED PICC LINE PLACEMENT, READY FOR USE. THIS PROCEDURE WAS PERFORMED BY THE UNDERSIGNED.
[2016-12-16] MEDS: DAPTOmycin 500 MG in SODIUM CHLORIDE 0.9% 50 ML IV SCH (14:02)
--- NOTE | 2016-12-16 15:02 | PN ---
DATE OF SERVICE: 12/15/2016 PRESENTING COMPLAINT: Left foot wound. INTERVAL HISTORY: This is a patient with severe peripheral artery disease, presented with left foot wound. I saw the patient yesterday on 12/15/2016, doing the dictation today. Antibiotic in place. PICC line is a pending. Patient will get outpatient hyperbaric treatment. Pain is controlled. Review of systems done for constitutional, cardiovascular, GI, pulmonary; relevant findings as above. Current medications are reviewed that include IV daptomycin. On examination, temperature 98.1, pulse 58, respiration 18, blood pressure 162/88, pulse ox 99%. General appearance, sitting in bed, comfortable. EYES: Pupils equal. Conjunctivae normal. NECK: JVD not raised. Mass not palpable. Respiratory effort normal. Lungs are clear. CARDIOVASCULAR: First and second sounds normal. No edema. ABDOMEN: Soft, nontender. Liver and spleen not palpable. Left foot in a dressing. INVESTIGATIONS: Accu-Cheks are noted. ASSESSMENT: 1. Left foot wound having failed outpatient treatment due to severe peripheral artery disease secondary to diabetes mellitus. 2. Diabetes mellitus type 2, chronically on insulin, causing peripheral neuropathy. 3. Essential hypertension. 4. Hyperlipidemia. 5. Chronic kidney disease from nephropathy and hypertensive nephrosclerosis. PLAN: Continue current medication and treatment plan. Await PICC line. Patient's cultures are growing MRSA.
--- NOTE | 2016-12-17 09:36 | DS ---
DATE OF ADMISSION: 12/10/2016 DATE OF DISCHARGE: 12/16/2016 FINAL DIAGNOSES: 1. Left foot wound secondary to diabetes and peripheral arterial disease or diabetes having failed outpatient treatment with cultures growing methicillin-resistant Staphylococcus aureus. 2. Diabetes mellitus type 2, chronically on insulin, causing peripheral neuropathy. 3. Essential hypertension, chronic. 4. Hyperlipidemia, chronic. 5. Chronic kidney disease from diabetic nephropathy and hypertensive nephrosclerosis. CONSULTATIONS: Dr. Cowart from infectious disease; Dr. Franco from vascular surgery. HOSPITAL COURSE: This patient is diabetic with peripheral neuropathy and peripheral arterial disease with poor circulation presented with MRSA wound. Treated with IV daptomycin. Overall prognosis is poor. Amputation down the road may be one of the options. At this point, they want to try antibiotics and maybe hyperbaric chamber. Patient's insulin dose was adjusted. Blood pressure medications were adjusted. On exam, lungs are clear. CARDIOVASCULAR: First and second sounds normal. Wound details as per Dr. Cowart notes. Care was discussed with the patient and . Home antibiotics were being arranged. Discharge planning more than 35 minutes. DISCHARGE MEDICATIONS: 1. Lipitor 10 mg q.h.s. 2. Vitamin C 500 mg p.o. t.i.d. 3. Lopressor 100 mg p.o. b.i.d. 4. Daptomycin 500 mg IV piggyback for 42 days. 5. Humalog mix ( ) , 18 units with lunch, 22 units with supper, 24units with breakfast, new dose. 6. Cozaar 50 mg p.o. b.i.d. 7. Catapres 0.2 mg b.i.d. Wound care to continue per Dr. Cowart. LABS: CBC, BMP, INR weekly result to Dr. Cowart. Follow up with Dr. De Jesus in one week; Dr. Franco in one week; Dr. Cowart in one week at the wound center, [facility] visiting nurse to follow. Discharge planning more than 35 minutes.
== END 2016-12-16 16:10 | disposition home health service (06) | DRG 638 ==
LOC: EC 15:35 → 5MS5E 18:39
PROVIDERS: ADMIT Hospitalist; ATTEND Hospitalist
PROC: 02HV33Z Insertion of Infusion Device into Superior Vena Cava, Percutaneous Approach (ICD-10-PCS; principal; 2016-12-16 08:50)
PROC: B548ZZA Ultrasonography of Superior Vena Cava, Guidance (ICD-10-PCS; 2016-12-16 08:50)
DX: E11.69 Type 2 diabetes mellitus with other specified complication (principal); M86.8X7 Other osteomyelitis, ankle and foot; E11.21 Type 2 diabetes mellitus with diabetic nephropathy; E11.621 Type 2 diabetes mellitus with foot ulcer; E11.42 Type 2 diabetes mellitus with diabetic polyneuropathy; J98.11 Atelectasis; L02.612 Cutaneous abscess of left foot; E11.22 Type 2 diabetes mellitus with diabetic chronic kidney disease; E11.51 Type 2 diabetes mellitus with diabetic peripheral angiopathy without gangrene; E11.65 Type 2 diabetes mellitus with hyperglycemia; Z79.4 Long term (current) use of insulin; B95.62 Methicillin resistant Staphylococcus aureus infection as the cause of diseases classified elsewhere; I99.8 Other disorder of circulatory system; L89.899 Pressure ulcer of other site, unspecified stage; E78.5 Hyperlipidemia, unspecified; I12.9 Hypertensive chronic kidney disease with stage 1 through stage 4 chronic kidney disease, or unspecified chronic kidney disease; N18.3 Chronic kidney disease, stage 3 (moderate); Z89.429 Acquired absence of other toe(s), unspecified side; Z87.891 Personal history of nicotine dependence; Z88.1 Allergy status to other antibiotic agents; Z82.49 Family history of ischemic heart disease and other diseases of the circulatory system; Z86.718 Personal history of other venous thrombosis and embolism; Z79.2 Long term (current) use of antibiotics; Z79.1 Long term (current) use of non-steroidal anti-inflammatories (NSAID); Z79.899 Other long term (current) drug therapy
CPT/HCPCS: 36415; 36569; 71020; 76937; 77001; 80048; 80053; 83036; 85025; 85652; 86140; 87040; 87070; 87077; 87186; 87205; 96365; 96375; 99285

== ENCOUNTER 2017-01-06 15:55 | Inpatient (IN) | payer MEDICARE ==
[2017-01-06 18:56] LABS: Glucose,Whole Blood 275 mg/dL (75-99)
[2017-01-06 20:52] LABS: Glucose,Whole Blood 306 mg/dL (75-99)
[2017-01-06] MEDS ORDERED: IPRATROPIUM-ALBUTEROL 3 ML NEB INHALATION PRN (21:36)
[2017-01-06] MEDS ORDERED: ALPRAZolam 0.25 MG TAB PO PRN (21:38)
[2017-01-06] MEDS ORDERED: HYDROcodone/APAP 5-325MG 1 EACH TAB PO PRN (21:39)
[2017-01-06] MEDS ORDERED: MELATONIN 3 MG TABLET PO PRN (21:39)
[2017-01-06] MEDS ORDERED: INSULIN REGULAR 100 UNIT in SODIUM CHLORIDE 0.9% 100 ML IV SCH (22:00)
[2017-01-06 22:34] LABS: Basophils % (A) 0 %; CH 27.1; CHCM 32.3; Eosinophils # (A) 0.5 k/uL (0-0.7); Eosinophils % (A) 8 %; HCT 33.2 % (39.0-53.0); HDW 3.23; HGB 10.9 gm/dL (13.0-17.5); Luc # (Auto) 0.14; Luc % (Auto) 2; Lymphocytes # (A) 0.5 k/uL (1.0-4.8); Lymphocytes % (A) 9 %; MCH 27.6 pg (25.0-35.0); MCHC 32.7 g/dL (31.0-37.0); MCV 84.2 fL (80.0-100.0); Mean Platelet Volume 10.2; Monocytes # (A) 0.4 k/uL (0-1.0); Monocytes % (A) 6 %; Neutrophils # (A) 4.8 k/uL (1.3-7.7); Neutrophils % (A) 75 %; RBC 3.94 m/uL (4.30-5.90); RDW 15.8 % (11.5-15.5); WBC 6.4 k/uL (3.8-10.6); WBC (Perox) 6.91
[2017-01-06 22:46] LABS: Calcium 8.8 mg/dL (8.4-10.2); Potassium 4.9 mmol/L (3.5-5.1)
[2017-01-06] MEDS: PANTOPRAZOLE 40 MG/10 ML VIAL IVP SCH (22:58)
[2017-01-06] MEDS: HEPARIN SODIUM,PORCINE 5,000 UNIT/ML 1 ML VIAL SQ SCH (22:58)
[2017-01-06] MEDS: METOPROLOL TARTRATE 50 MG TAB PO SCH (22:59)
[2017-01-06] MEDS: ATORVASTATIN 10 MG TAB PO SCH (22:59)
[2017-01-06] MEDS: ACETAMINOPHEN TAB 325 MG TAB PO PRN (22:59)
[2017-01-06] MEDS: cloNIDine HCL 0.2 MG TAB PO SCH (22:59)
[2017-01-06] MEDS: FUROSEMIDE 10 MG/ML 4 ML VIAL IV SCH (22:59)
[2017-01-06 23:12] LABS: Hemoglobin A1C 8.2 % (4.2-6.1)
[2017-01-06 23:34] LABS: Glucose,Whole Blood 272 mg/dL (75-99)
[2017-01-07 00:25] LABS: Glucose,Whole Blood 203 mg/dL (75-99)
[2017-01-07 02:13] LABS: Glucose,Whole Blood 117 mg/dL (75-99)
[2017-01-07 03:24] LABS: Glucose,Whole Blood 137 mg/dL (75-99)
[2017-01-07 05:08] LABS: Glucose,Whole Blood 161 mg/dL (75-99)
[2017-01-07 06:48] LABS: Basophils % (A) 0 %; CHCM 31.8; Eosinophils # (A) 0.6 k/uL (0-0.7); Eosinophils % (A) 8 %; HCT 32.2 % (39.0-53.0); HDW 3.18; HGB 10.4 gm/dL (13.0-17.5); Hypochromasia Slight; Luc # (Auto) 0.26; Luc % (Auto) 4; Lymphocytes # (A) 0.8 k/uL (1.0-4.8); Lymphocytes % (A) 12 %; MCH 27.5 pg (25.0-35.0); MCHC 32.3 g/dL (31.0-37.0); MCV 85.1 fL (80.0-100.0); Mean Platelet Volume 9.5; Monocytes # (A) 0.4 k/uL (0-1.0); Monocytes % (A) 6 %; Neutrophils # (A) 4.8 k/uL (1.3-7.7); Neutrophils % (A) 69 %; RBC 3.78 m/uL (4.30-5.90); RDW 15.6 % (11.5-15.5); WBC 6.9 k/uL (3.8-10.6); WBC (Perox) 7.19
[2017-01-07 06:59] LABS: Potassium 4.7 mmol/L (3.5-5.1)
[2017-01-07 07:15] LABS: Glucose,Whole Blood 153 mg/dL (75-99)
[2017-01-07] MEDS ORDERED: INSULIN LISPRO (humaLOG) 300 UNIT/3 ML VIAL SQ SCH (07:30)
[2017-01-07] MEDS ORDERED: DAPTOmycin 500 MG VIAL IV SCH (09:00)
[2017-01-07 09:34] LABS: Glucose,Whole Blood 126 mg/dL (75-99)
[2017-01-07] MEDS: DAPTOmycin 500 MG in SODIUM CHLORIDE 0.9% 50 ML IV SCH (09:40)
[2017-01-07] MEDS: PANTOPRAZOLE 40 MG/10 ML VIAL IVP SCH (09:42)
[2017-01-07] MEDS: HEPARIN SODIUM,PORCINE 5,000 UNIT/ML 1 ML VIAL SQ SCH (09:42)
[2017-01-07] MEDS: cloNIDine HCL 0.2 MG TAB PO SCH ×2 (09:42→20:05)
[2017-01-07] MEDS: METOPROLOL TARTRATE 50 MG TAB PO SCH ×2 (09:42→21:28)
[2017-01-07] MEDS: FUROSEMIDE 10 MG/ML 4 ML VIAL IV SCH ×2 (09:42→20:06)
--- NOTE | 2017-01-07 09:51 | ECHOF ---
Referral Reason:LV function MEASUREMENTS -------- HEIGHT: 190.5 cm WEIGHT: 104.8 kg BP: 135/73 RVIDd: 3.3 cm (< 3.3) IVSd: 1.4 cm (0.6 - 1.1) LVIDd: 5.0 cm (3.9 - 5.3) LVPWd: 1.3 cm (0.6 - 1.1) IVSs: 1.5 cm LVIDs: 3.6 cm LVPWs: 1.9 cm LA Diam: 3.5 cm (2.7 - 3.8) LAESV Index (A-L): 39.54 ml/m Ao Diam: 3.7 cm (2.0 - 3.7) AV Cusp: 2.0 cm (1.5 - 2.6) LA Diam: 3.5 cm (2.7 - 3.8) MV EXCURSION: 15.488 mm (> 18.000) MV EF SLOPE: 131 mm/s (70 - 150) EPSS: 0.8 cm MV E Angel: 0.74 m/s MV DecT: 158 ms MV A Angel: 0.66 m/s MV E/A Ratio: 1.11 FINDINGS -------- Sinus rhythm. This was a technically good study. There is moderate concentric left ventricular hypertrophy. Overall left ventricular systolic function is low-normal with, an EF between 50 - 55 %. The right ventricle is mildly enlarged. LA is moderately dilated 34-39 ml/m2 The right atrium is normal in size. Aortic valve is trileaflet and is mildly thickened. The mitral valve leaflets are mildly thickened. Mild mitral annular calcification present. Mild mitral regurgitation is present. Trace tricuspid regurgitation present. Trace/mild (physiologic) pulmonic regurgitation. The aortic root size is normal. The inferior vena cava is mildly dilated. There is a trivial pericardial effusion present. CONCLUSIONS -------- 1. Sinus rhythm. 2. Mild mitral annular calcification present. 3. Mild mitral regurgitation is present. 4. Trace tricuspid regurgitation present. 5. Trace/mild (physiologic) pulmonic regurgitation. 6. The aortic root size is normal. 7. There is a trivial pericardial effusion present. 8. This was a technically good study. 9. There is moderate concentric left ventricular hypertrophy. 10. Overall left ventricular systolic function is low-normal with, an EF between 50 - 55 %. 11. The right ventricle is mildly enlarged. 12. LA is moderately dilated 34-39 ml/m2 13. The right atrium is normal in size. 14. Aortic valve is trileaflet and is mildly thickened. 15. The mitral valve leaflets are mildly thickened. ACADEMIC ADVISEMENT DIRECTOR: Ana Hernandez RDCS
[2017-01-07] MEDS: IPRATROPIUM-ALBUTEROL 3 ML NEB INHALATION SCH ×4 (09:54→20:58)
[2017-01-07 10:16] LABS: Glucose,Whole Blood 126 mg/dL (75-99)
--- NOTE | 2017-01-07 11:32 | CONS ---
DATE OF CONSULTATION: CHIEF COMPLAINT: Shortness of breath. Demarcus is a 71-year-old gentleman with history of osteomyelitis involving left foot who presented to hospital primarily complaining of not feeling well, fever and short of breath. He is admitted to the hospital with a diagnosis of acute onset congestive heart failure because the BNP. I do not have a chest x-ray on him at this time. His EKG showed sinus rhythm with nonspecific ST-T wave changes. They have not done tropes on him. I did a D-dimer, it came back elevated at 2.3. His echocardiogram shows normal LV systolic function. BNP is elevated suggestive of acute diastolic heart failure. I am going to obtain a V/Q scan to rule out pulmonary embolism and treat him aggressively with intravenous diuretics, optimal control of his hypertension with beta blockers. I am not starting him on Donnell inhibitors due to renal insufficiency. Past medical history is significant for osteomyelitis, insulin-requiring diabetes, hypertension, dyslipidemia. Medications include Catapres 0.2 b.i.d., metoprolol 100 b.i.d. Cozaar 50 b.i.d., insulin, atorvastatin and vitamin C. The patient is allergic to AMLODIPINE, LISINOPRIL and VANCOMYCIN. Family history is negative for premature coronary artery disease. Social history is negative for current smoking, EtOH abuse, or drug abuse. REVIEW OF SYSTEMS: HEENT: Unremarkable. CARDIAC: As described above. RESPIRATORY: As described above. PSYCHOSOCIAL: Negative. ENDOCRINE: Negative. HEMATOLOGICAL: Negative. DERMATOLOGIC: Negative. CONSTITUTIONAL: Negative. MUSCULOSKELETAL: Significant for osteomyelitis. The rest of the system review is not relevant. On exam, he appears comfortable at rest. Heart rate is 70 beats per minute, blood pressure is 144/81, respiratory rate 18, O2 sat is 98% on room air. There is no jugular venous distention. Carotid upstroke is normal. There is no bruit. Chest exam reveals good air entry bilaterally. Heart exam reveals first and second heart sounds and a systolic murmur at the apex. Abdomen is soft. Exam of the extremities revealed diminished pulses over the left leg with a nonhealing ulcer. EKG shows sinus bradycardia with ST-T wave changes which could be due to left ventricular hypertrophy or due to ischemia. D-dimer is elevated. Cardiac enzymes are pending. Hemoglobin is 10.4. ASSESSMENT: 1. Acute onset diastolic heart failure. 2. Chronic renal failure. 3. Hypertensive heart disease. 4. Osteomyelitis. PLAN: I will continue the patient with current therapies including IV Lasix. I will obtain a V/Q scan given the elevated D-dimer and obtain the troponins.
[2017-01-07 11:46] LABS: Glucose,Whole Blood 144 mg/dL (75-99)
[2017-01-07] MEDS ORDERED: HEPARIN SODIUM,PORCINE 5,000 UNIT/ML 1 ML VIAL IV PRN (11:51)
[2017-01-07 12:07] LABS: Basophils % (A) 0 %; CH 27.1; CHCM 32.1; Eosinophils # (A) 0.6 k/uL (0-0.7); Eosinophils % (A) 10 %; HDW 3.27; HGB 10.4 gm/dL (13.0-17.5); Hypochromasia Slight; Luc # (Auto) 0.16; Luc % (Auto) 3; Lymphocytes # (A) 0.7 k/uL (1.0-4.8); Lymphocytes % (A) 11 %; MCH 26.7 pg (25.0-35.0); MCHC 31.5 g/dL (31.0-37.0); MCV 84.8 fL (80.0-100.0); Mean Platelet Volume 11.4; Monocytes # (A) 0.5 k/uL (0-1.0); Monocytes % (A) 7 %; Neutrophils # (A) 4.3 k/uL (1.3-7.7); Neutrophils % (A) 69 %; RDW 15.7 % (11.5-15.5); WBC 6.3 k/uL (3.8-10.6); WBC (Perox) 6.88
[2017-01-07] MEDS: INSULIN NPH/REG INSULIN 70/30 300 UNIT/3 ML VIAL SQ SCH ×2 (12:25→17:27)
[2017-01-07] MEDS ORDERED: HEPARIN SODIUM,PORCINE/D5W PMX 25,000 UNIT in DEXTROSE/WATER 1 500ML.BAG IV SCH (12:30)
[2017-01-07 12:37] LABS: Partial Thromboplastin Time 27.8 sec (22.0-30.0); Prothrombin Time 10.5 sec (9.0-12.0)
--- NOTE | 2017-01-07 14:45 | P.CON ---
Consult Note - . Consult date: 01/07/17 Assessment/Plan:: 71-year-old male who is followed wound healing center was recently hospitalized due to increasing difficulties with his left foot. In August 2016 he was having great difficulties with left foot second toe. Consequently on 08/31/2016 was taken to the operating room for the toe amputation. He has been followed in the wound healing center since that point in time. He's been treated with multiple interventions but continues to have nonhealing ulceration to that site. He was being treated with antibiotic therapy. Despite that he had some worsening. Consequently he was recently hospitalized 12/10/2016, culture showed change of pathogen to MRSA. Antibiotic therapy alter to daptomycin. . Continue following up in the wound healing Center, and is in need of hyperbaric oxygen therapy for limb salvage. Now presents with significant increasing shortness of breath. Also is having a fever of 102. Because of this he presented to the emergency center and has been admitted. His been seen by cardiology and he has been diagnosed with diastolic congestive heart failure and is receiving appropriate diuretic therapy at this time and antihypertensives. The patient however has become febrile. At the time of the consult influenza testing was requested back as negative. The patient is being followed in wound healing center as noted in receiving daptomycin therapy. Benign is high-grade fever. Please see the consult note is dictated by nurse practitioner Mrs. Fabiana Redman. At this time is present gentleman is feeling quite poorly. He is able to eat his lunch. He has some ongoing shortness of breath but it's improved. Is denying significant chest pain. Is being watched closely by cardiology. Chest x-ray shows evidence of a potential right lower lobe infiltration. Echocardiogram shows evidence of a preserved ejection fraction. At this time the patient has developed a significant fever and since he has been on antibiotic therapy with daptomycin there are some concerns. First is daptomycin has no pulmonary penetration. Secondly he has been on a gram- positive coverage only medication is a great risk for gram-negative infection. With this ends microbial therapy is altered to ceftazidime to provide coverage for gram-negative pneumonia and bacteremia. Cultures are in process. Daptomycin continues with MRSA infection of his foot. I agree with evaluation, assessment and plan as dictated by nurse practitioner Mrs. Fabiana Redman.
--- NOTE | 2017-01-07 14:47 | NM ---
EXAMINATION TYPE: NM pul vent and perfuse DATE OF EXAM: 01/07/2017 2:21 PM COMPARISON: Chest x-ray 01/07/2017 HISTORY: Shortness of breath TECHNIQUE: Utilizing inhalation of 71.5 mCi Tc 99m DTPA aerosol and intravenous injection of 5.5 mCi of Tc 99m MAA, ventilation and perfusion images are acquired post injection in multiple projections. FINDINGS: There are no mismatch pulmonary ventilation perfusion defects. However there is a triple match along the lateral margin of the right lower lobe. IMPRESSION: Intermediate probability for pulmonary embolism
--- NOTE | 2017-01-07 14:48 | XR ---
EXAMINATION TYPE: XR chest 2V DATE OF EXAM: 01/07/2017 2:32 PM COMPARISON: 01/06/2017 TECHNIQUE: PA and lateral views submitted. HISTORY: Shortness of breath FINDINGS: Heart is enlarged. Prominent hilum are seen and there is a left-sided PICC line. Right lower lobe con solidation and small effusion seen. No overt failure or pneumothorax. IMPRESSION: 1. Right lower lobe infiltrate and small effusion 2. Cardiomegaly 3. Bilateral hilar prominence may relate to pulmonary artery enlargement correlate for arterial hyper tension
--- NOTE | 2017-01-07 15:22 | P.CNPUL ---
History of Present Illness Consult date: 01/07/17 Requesting physician: Abhishek Stout Reason for consult: dyspnea Chief complaint: Shortness of breath History of present illness: This is a very pleasant 71-year-old gentleman with a history of diabetes mellitus, type II with evidence of Gopal grade for ulceration of the left foot. He also has a history of DVT, hypertension, hyperlipidemia, neuropathy, stage III kidney disease, MRSA, VRE both of the left foot. He has been treated in the wound Center for the same. He has undergone a left second and third toe amputation and partial amputation of the great toe. He was most recently seen by Dr. Franco in the wound Center for debridement and application of aqua cell Silver. He recently developed complaints of increasing shortness of breath, cough and congestion. He was initially seen and [facility] and eventually transferred here for further care. He is seen today in consultation. His chest x-ray reveals evidence of a right lower lobe infiltrate with small effusion. There is cardiomegaly and bilateral hilar prominence pamela pulmonary artery enlargement versus arterial hypertension. He has a left upper extremity PICC line in place. The d-dimer is 2.38. Creatinine 2.27 and were unable to obtain a CT angiogram. A VQ scan reveals intermediate probability for pulmonary embolism. He has been initiated on a heparin drip. Influenza screen is negative. Troponin 0.352. He has preserved left ventricular systolic function with estimated ejection fraction 50-55%. He is also been seen in consultation by Dr. Cowart who initiated daptomycin and ceftazidime. He is seen on the selective care unit. He is awake and alert in no acute distress. He is dyspneic with minimal exertion. No productive cough. No chills or night sweats. No chest pain, palpitations lightheadedness or dizziness. He has been afebrile. No tachycardia. Hemodynamically stable. Maintaining O2 saturations in the high 90s on room air. Review of Systems 14 point review of systems was conducted all negative other than as mentioned in HPI. Past Medical History Past Medical History: Diabetes Mellitus, Deep Vein Thrombosis (DVT), Hyperlipidemia, Hypertension Additional Past Medical History / Comment(s): per pt's xray noted lung nodules. 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 Past Anesthesia/Blood Transfusion Reactions: Postoperative Nausea & Vomiting ( PONV) Past Psychological History: No Psychological Hx Reported Additional Psychological History / Comment(s): , lives in the family home with his . 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 Has lived in [place] as well as [place]. He did spend 25 years and [place]. 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 Moved back to this region so that he could be close to his 3 children. Relates he stopped smoking several years ago. He has no significant history of alcohol or recreational drug use. No international travel. No experience. No animal exposures Smoking Status: Former smoker Past Alcohol Use History: None Reported Past Drug Use History: None Reported - Past Family History Father Family Medical History: Deep Vein Thrombosis (DVT) Additional Family Medical History / Comment(s): had valve sx- a week later from complications Mother Family Medical History: Congestive Heart Failure (CHF) Additional Family Medical History / Comment(s): phlebitis Medications and Allergies Home Medications Medication Instructions Recorded Confirmed Type Atorvastatin Calcium 10 mg PO HS 08/29/16 01/06/17 History Ascorbic Acid [Vitamin C] 500 mg PO TID 12/10/16 01/06/17 History Metoprolol Tartrate [Lopressor] 100 mg PO BID 12/10/16 01/06/17 History Insulin NPH Hum/Reg Insulin Hm 20 unit SQ TID 01/06/17 01/06/17 History [humuLIN 70/30 Kwikpen] Allergies Allergy/AdvReac Type Severity Reaction Status Date / Time amlodipine Allergy Anaphylaxis Verified 01/03/17 15:47 lisinopril Allergy tongue Verified 01/03/17 15:47 swelling vancomycin Allergy Unknown Verified 01/03/17 15:47 Physical Exam Vitals: Vital Signs Temp Pulse Resp BP Pulse Ox 01/07/17 11:34 98.1 F 66 16 145/84 98 01/07/17 08:00 98.0 F 71 16 144/81 98 01/07/17 03:35 97.8 F 68 16 135/73 96 01/07/17 00:00 100.9 F H 96 16 167/81 96 01/06/17 21:00 101.2 F H 92 16 160/72 95 01/06/17 17:45 99.1 F 93 16 167/86 100 Intake and Output 01/06/17 01/07/17 01/07/17 22:59 06:59 14:59 Intake Total 129.699 249.583 Output Total 1300 1225 Balance -1170.301 -975.417 Intake: IV 100 cefTAZidime 2 gm In 100 Sodium Chloride 0.9% 100 ml @ 100 mls/hr IVPB Q12H [facility] Rx#:[id number] Intake, IV Titration 29.699 9.583 Amount Insulin Regular 100 unit 29.699 9.583 In Sodium Chloride 0.9% 100 ml @ Titrate IV .Q0M [facility] Rx#:[id number] Oral 240 Output: Urine 1300 1225 Other: Weight 105 kg 107.6 kg GENERAL EXAM: Alert, comfortable in no apparent distress. HEAD: Normocephalic. EYES: Normal reaction of pupils, equal size. NOSE: Clear with pink turbinates. THROAT: No erythema or exudates. NECK: No masses, no JVD. CHEST: No chest wall deformity. LUNGS: Equal air entry with no crackles, wheeze, rhonchi or dullness. CVS: S1 and S2 normal with no audible murmurs, regular rhythm. ABDOMEN: No hepatosplenomegaly, normal bowel sounds, no guarding or rigidity. Extremities: There is evidence of amputation of the toes of the left foot with open wounds. No significant peripheral edema. No clubbing, no cyanosis. Peripheral pulses are intact. Results - Laboratory Findings CBC and BMP: 01/07/17 10:08 01/07/17 06:15 PT/INR, D-dimer PT 10.5 sec (9.0-12.0) 01/07/17 10:08 INR 1.0 (<1.1) 01/07/17 10:08 D-Dimer 2.38 mg/L FEU (<0.60) H 01/07/17 10:08 Abnormal lab findings: Abnormal Labs 01/06/17 01/06/17 01/06/17 18:52 20:50 21:54 RBC Hgb Hct RDW Lymphocytes # D-Dimer Sodium Carbon Dioxide BUN Creatinine Glucose POC Glucose (mg/dL) 275 H 306 H Hemoglobin A1c 8.2 H Troponin I 01/06/17 01/06/17 01/06/17 21:54 21:54 23:32 RBC 3.94 L Hgb 10.9 L Hct 33.2 L RDW 15.8 H Lymphocytes # 0.5 L D-Dimer Sodium 134 L Carbon Dioxide 21 L BUN 35 H Creatinine 2.36 H Glucose 294 H POC Glucose (mg/dL) 272 H Hemoglobin A1c Troponin I 01/07/17 01/07/17 01/07/17 00:14 01:54 03:14 RBC Hgb Hct RDW Lymphocytes # D-Dimer Sodium Carbon Dioxide BUN Creatinine Glucose POC Glucose (mg/dL) 203 H 117 H 137 H Hemoglobin A1c Troponin I 01/07/17 01/07/17 01/07/17 05:06 06:15 06:15 RBC 3.78 L Hgb 10.4 L Hct 32.2 L RDW 15.6 H Lymphocytes # 0.8 L D-Dimer Sodium Carbon Dioxide 18 L BUN 34 H Creatinine 2.27 H Glucose 153 H POC Glucose (mg/dL) 161 H Hemoglobin A1c Troponin I 01/07/17 01/07/17 01/07/17 07:04 09:13 10:08 RBC Hgb Hct RDW Lymphocytes # D-Dimer Sodium Carbon Dioxide BUN Creatinine Glucose POC Glucose (mg/dL) 153 H 126 H Hemoglobin A1c Troponin I 0.352 H* 01/07/17 01/07/17 01/07/17 10:08 10:08 10:09 RBC 3.90 L Hgb 10.4 L Hct 33.0 L RDW 15.7 H Lymphocytes # 0.7 L D-Dimer 2.38 H Sodium Carbon Dioxide BUN Creatinine Glucose POC Glucose (mg/dL) 126 H Hemoglobin A1c Troponin I 01/07/17 11:35 RBC Hgb Hct RDW Lymphocytes # D-Dimer Sodium Carbon Dioxide BUN Creatinine Glucose POC Glucose (mg/dL) 144 H Hemoglobin A1c Troponin I - Diagnostic Findings Chest x-ray: image reviewed Assessment and Plan Plan: Impression: #1 Acute sepsis secondary to osteomyelitis. Intermediate probability of pulmonary embolism in the right lower lobe. #2 Acute exacerbation of diastolic congestive heart failure. Preserved left ventricular systolic function with estimated ejection fraction 50-55%. #2 History of DVT. Dopplers of the lower extremities from [facility] reported negative for DVT. #3 Diabetes mellitus, type II. #4 Diabetic neuropathy. #5 Nonhealing wounds of the toes of the left foot status post amputation of the second and third toe with osteomyelitis currently being treated in our wound Center. 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 #7 Hypertension. #8 Hyperlipidemia. #9 Acute on chronic stage III renal failure. Plan: The patient was seen and evaluated by Dr. Julien. His chest x-ray, VQ scan and labs were reviewed. There is some evidence of fluid volume overload secondary to suspected diastolic congestive heart failure. He is being diuresed with Lasix 40 mg IV push every 12 hours. There is also infiltrate of the right lower lobe and less likely a pulmonary embolism. The Dopplers of the lower extremities from [facility] are reported as negative as well. He remains on a heparin drip as his troponins are borderline. Cardiology is on the case as well. Infectious disease is on the case and he remains on daptomycin and ceftazidime. He is on bronchodilators 4 times a day and when necessary. We will continue to follow the patient closely. We'll make further recommendations based on his clinical status.
--- NOTE | 2017-01-07 15:37 | P.CONS ---
History of Present Illness - Reason for Consult Consult date: 01/07/17 - History of Present Illness 71-year-old male who is followed wound healing center was recently hospitalized due to increasing difficulties with his left foot. In August 2016 he was having great difficulties with left foot second toe. Consequently on 08/31/2016 was taken to the operating room for the toe amputation. He has been followed in the wound healing center since that point in time. He's been treated with multiple interventions but continues to have nonhealing ulceration to that site. He was being treated with antibiotic therapy. Despite that he had some worsening. Consequently he was recently hospitalized 12/10/2016, culture showed change of pathogen to MRSA. Antibiotic therapy alter to daptomycin. . Continue following up in the wound healing Center, and is in need of hyperbaric oxygen therapy for limb salvage. Now presents with significant increasing shortness of breath. Also is having a fever of 102. Because of this he presented to the emergency center and has been admitted. His been seen by cardiology and he has been diagnosed with diastolic congestive heart failure and is receiving appropriate diuretic therapy at this time and antihypertensives. The patient however has become febrile. At the time of the consult influenza testing was requested back as negative. The patient is being followed in wound healing center as noted in receiving daptomycin therapy. Review of Systems All systems: negative Constitutional: Reports chills, Reports fever, Reports sweats Eyes: denies blurred vision, denies pain Ears, nose, mouth and throat: Denies headache, Denies sore throat Cardiovascular: Reports orthopnea, Reports shortness of breath, Denies chest pain Respiratory: Reports cough, Reports dyspnea, Denies cough with sputum, Denies excessive sputum, Denies hemoptysis, Denies home oxygen Gastrointestinal: Denies abdominal pain, Denies diarrhea, Denies nausea, Denies vomiting Genitourinary: Denies dysuria, Denies hematuria, Denies urinary frequency Musculoskeletal: Denies myalgias Integumentary: Reports wounds, Denies pruritus, Denies rash Neurological: Denies numbness, Denies weakness Psychiatric: Denies anxiety, Denies depression Endocrine: Denies fatigue, Denies weight change Past Medical History Past Medical History: Diabetes Mellitus, Deep Vein Thrombosis (DVT), Hyperlipidemia, Hypertension Additional Past Medical History / Comment(s): per pt's xray noted lung nodules. 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 tumor removed from bladder, L foot gr toe, 3rd &2nd toe amputated; Rfoot 3rd toe amputated, Bypass in Bilat legs, eulogio knee sx(cartilage), lt arm picc line. Past Anesthesia/Blood Transfusion Reactions: Postoperative Nausea & Vomiting ( PONV) Past Psychological History: No Psychological Hx Reported Additional Psychological History / Comment(s): , lives in the family home with his . 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 He did spend 25 years and [place]. 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 Moved back to this region so that he could be close to his 3 children. Relates he stopped smoking several years ago. He has no significant history of alcohol or recreational drug use. No international travel. No experience. No animal exposures Smoking Status: Former smoker Past Alcohol Use History: None Reported Past Drug Use History: None Reported - Past Family History Father Family Medical History: Deep Vein Thrombosis (DVT) Additional Family Medical History / Comment(s): had valve sx- a week later from complications Mother Family Medical History: Congestive Heart Failure (CHF) Additional Family Medical History / Comment(s): phlebitis Medications and Allergies Home Medications Medication Instructions Recorded Confirmed Type Atorvastatin Calcium 10 mg PO HS 08/29/16 01/06/17 History Ascorbic Acid [Vitamin C] 500 mg PO TID 12/10/16 01/06/17 History Metoprolol Tartrate [Lopressor] 100 mg PO BID 12/10/16 01/06/17 History Insulin NPH Hum/Reg Insulin Hm 20 unit SQ TID 01/06/17 01/06/17 History [humuLIN 70/30 Kwikpen] Allergies Allergy/AdvReac Type Severity Reaction Status Date / Time amlodipine Allergy Anaphylaxis Verified 01/03/17 15:47 lisinopril Allergy tongue Verified 01/03/17 15:47 swelling vancomycin Allergy Unknown Verified 01/03/17 15:47 Physical Exam Vitals: Vital Signs Temp Pulse Resp BP Pulse Ox 01/07/17 03:35 97.8 F 68 16 135/73 96 01/07/17 00:00 100.9 F H 96 16 167/81 96 01/06/17 21:00 101.2 F H 92 16 160/72 95 01/06/17 17:45 99.1 F 93 16 167/86 100 Intake and Output 01/06/17 01/07/17 01/07/17 22:59 06:59 14:59 Intake Total 129.699 4.583 Output Total 1300 Balance -1170.301 4.583 Intake: IV 100 cefTAZidime 2 gm In 100 Sodium Chloride 0.9% 100 ml @ 100 mls/hr IVPB Q12H [facility] Rx#:[id number] Intake, IV Titration 29.699 4.583 Amount Insulin Regular 100 unit 29.699 4.583 In Sodium Chloride 0.9% 100 ml @ Titrate IV .Q0M [facility] Rx#:[id number] Oral 0 Output: Urine 1300 Other: Weight 105 kg 107.6 kg Gen: This is a 71-year-old male. He is sitting up in bed and appears to be in no acute distress. No respiratory distress noted at rest. HEENT: Head is atraumatic, normocephalic. Pupils equal, round. Sclerae is anicteric. NECK: Supple. No JVD. No lymphadenopathy. No thyromegaly. LUNGS: Diminished to the bases. Clear to auscultation. No wheezes or rhonchi. No intercostal retractions. HEART: Regular rate and rhythm. No murmur. ABDOMEN: Soft. Bowel sounds are present. No masses. No tenderness. EXTREMITIES: Dorsalis pedis is palpable bilaterally. Patient has noted amputation on the right foot that is old and healed. Patient has amputation of the great toe and third toe oh which wounds are healed. There is a wound to the amputation site on the second toe and on the lateral metatarsal. NEUROLOGICAL: Patient is awake, alert and oriented x3. Cranial nerves 2 through 12 are grossly intact. Results CBC & Chem 7: 01/07/17 10:08 01/07/17 06:15 Labs: Abnormal Lab Results - Last 24 Hours (Table) 01/06/17 01/06/17 01/06/17 Range/Units 18:52 20:50 21:54 RBC (4.30-5.90) m/uL Hgb (13.0-17.5) gm/dL Hct (39.0-53.0) % RDW (11.5-15.5) % Lymphocytes # (1.0-4.8) k/uL Sodium (137-145) mmol/L Carbon Dioxide (22-30) mmol/L BUN (9-20) mg/dL Creatinine (0.66-1.25) mg/dL Glucose (74-99) mg/dL POC Glucose (mg/dL) 275 H 306 H (75-99) mg/dL Hemoglobin A1c 8.2 H (4.2-6.1) % 01/06/17 01/06/17 01/06/17 Range/Units 21:54 21:54 23:32 RBC 3.94 L (4.30-5.90) m/uL Hgb 10.9 L (13.0-17.5) gm/dL Hct 33.2 L (39.0-53.0) % RDW 15.8 H (11.5-15.5) % Lymphocytes # 0.5 L (1.0-4.8) k/uL Sodium 134 L (137-145) mmol/L Carbon Dioxide 21 L (22-30) mmol/L BUN 35 H (9-20) mg/dL Creatinine 2.36 H (0.66-1.25) mg/dL Glucose 294 H (74-99) mg/dL POC Glucose (mg/dL) 272 H (75-99) mg/dL Hemoglobin A1c (4.2-6.1) % 01/07/17 01/07/17 01/07/17 Range/Units 00:14 01:54 03:14 RBC (4.30-5.90) m/uL Hgb (13.0-17.5) gm/dL Hct (39.0-53.0) % RDW (11.5-15.5) % Lymphocytes # (1.0-4.8) k/uL Sodium (137-145) mmol/L Carbon Dioxide (22-30) mmol/L BUN (9-20) mg/dL Creatinine (0.66-1.25) mg/dL Glucose (74-99) mg/dL POC Glucose (mg/dL) 203 H 117 H 137 H (75-99) mg/dL Hemoglobin A1c (4.2-6.1) % 01/07/17 01/07/17 01/07/17 Range/Units 05:06 06:15 06:15 RBC 3.78 L (4.30-5.90) m/uL Hgb 10.4 L (13.0-17.5) gm/dL Hct 32.2 L (39.0-53.0) % RDW 15.6 H (11.5-15.5) % Lymphocytes # 0.8 L (1.0-4.8) k/uL Sodium (137-145) mmol/L Carbon Dioxide 18 L (22-30) mmol/L BUN 34 H (9-20) mg/dL Creatinine 2.27 H (0.66-1.25) mg/dL Glucose 153 H (74-99) mg/dL POC Glucose (mg/dL) 161 H (75-99) mg/dL Hemoglobin A1c (4.2-6.1) % 01/07/17 Range/Units 07:04 RBC (4.30-5.90) m/uL Hgb (13.0-17.5) gm/dL Hct (39.0-53.0) % RDW (11.5-15.5) % Lymphocytes # (1.0-4.8) k/uL Sodium (137-145) mmol/L Carbon Dioxide (22-30) mmol/L BUN (9-20) mg/dL Creatinine (0.66-1.25) mg/dL Glucose (74-99) mg/dL POC Glucose (mg/dL) 153 H (75-99) mg/dL Hemoglobin A1c (4.2-6.1) % Assessment and Plan Plan: This is a 71-year-old male well known to ID service for his left toe wounds, ulcers status post amputations currently followed at the wound healing Center. Patient is currently on daptomycin which will be continued. He also presents with acute exacerbation of diastolic heart failure and currently on IV Lasix. Ceftazidime has also been added as there is concern for pneumonia on right lower lobe. Influenza testing a and B was requested which has been negative. Blood culture has status received. Patient is followed also by pulmonary medicine and cardiology. Continue supportive care. Further recommendations as patient progresses. The above dictated assessment and findings were discussed with Dr. Cowart. The impression and plan of care have been directed as dictated. Fabiana Redman nurse practitioner acting as scribe for Dr. Cowart. Time with Patient: Greater than 30
[2017-01-07] MEDS: ASCORBIC ACID 500 MG TAB PO SCH ×2 (15:57→20:06)
[2017-01-07] MEDS ORDERED: REG INSULIN SQ SCH (16:00)
[2017-01-07] MEDS ORDERED: INSULIN NPH HUM SQ SCH (16:00)
[2017-01-07 17:18] LABS: Glucose,Whole Blood 252 mg/dL (75-99)
--- NOTE | 2017-01-07 17:24 | HP ---
DATE OF ADMISSION: 01/06/2017 CHIEF COMPLAINT: Shortness of breath and cough and sputum. HISTORY OF PRESENT ILLNESS: This 71-year-old gentleman with a past medical history of diabetes mellitus, history of deep venous thrombosis, hypertension, hyperlipidemia, history of lung nodules, history of hernia repair, history of osteomyelitis, of the left foot being followed by Dr. Jack De Jesus in the outpatient setting, complaining of shortness of breath. 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 The patient went to [facility] and subsequently transferred to [facility] for direct admission at this time. The patient also had left foot wound and was being also evaluated by Dr. Cowart as well as Dr. Franco. The patient has received Cubicin recently. There is no history of fever, rigors or chills. No history of headache, loss of consciousness or seizures. PAST MEDICAL HISTORY: History of Type 2 diabetes mellitus, history of deep venous thrombosis, hypertension, hyperlipidemia, hernia repair. Medications prior to admission include: 1. Catapres 0.2 b.i.d. 2. Lopressor 100 mg p.o. b.i.d. 3. Cozaar 50 mg b.i.d. 4. Insulin 70/30 10 units subcu t.i.d. 5. Cubicin 5 mg IV daily. 6. Atorvastatin 10 mg q.h.s. 7. Vitamin C 500 mg p.o. daily t.i.d. ALLERGIES: AMLODIPINE, LISINOPRIL, AND VANCOMYCIN. FAMILY HISTORY: History of deep venous thrombosis, valve disease in the family. SOCIAL HISTORY: Previous history of smoking. Occasional alcohol intake. No history of current smoking. REVIEW OF SYSTEMS: ENT: No diminished hearing. No diminished vision. CARDIOVASCULAR: No angina or palpitations. RESPIRATORY: No cough or hemoptysis. GASTROINTESTINAL: No nausea or vomiting. GENITOURINARY: No dysuria. CENTRAL NERVOUS SYSTEM: As mentioned earlier. Allergy/immunology: No asthma or hayfever. MUSCULOSKELETAL: As mentioned earlier. HEMATOLOGY/ONCOLOGY: No history of anemia. ENDOCRINE: As mentioned earlier. CONSTITUTIONAL: As mentioned earlier. DERMATOLOGY: Negative. RHEUMATOLOGY: Negative. PSYCHIATRY: As mentioned earlier. PHYSICAL EXAMINATION: The patient is alert and oriented times three. Pulse 66, blood pressure 140/84, respiratory rate 16, temperature 98.1, pulse ox 98% on room air. T-max 101.5. HEENT: Conjunctivae normal. NECK: No jugular venous distention. CARDIOVASCULAR: S1, S2 muffled. No S3, no S4. RESPIRATORY: Breath sounds diminished at the bases. A few scattered rhonchi. A few crackles also heard. Expiratory wheezing also present. ABDOMEN: Soft, obese. Nontender. LEGS: Bilateral peripheral neuropathy as well as ulcer, grade 4 on the left second toe area. Amputation previously. CENTRAL NERVOUS SYSTEM: Higher functions as mentioned earlier. No focal motor deficits. O signs of cerebellar dysfunction. Power normal. SKIN: As mentioned earlier. LYMPHATICS: No lymph nodes palpable in the neck, axillae or groin. LAB INVESTIGATIONS: WBC 6.3, hemoglobin is 10.4 and D. dimer is 2.38. Troponin 0.352. Influenza negative. Creatinine is 2.27. The chest x-ray the official reports pending at this time. Otherwise, shows evidence of congestive heart failure. VQ scan is pending. A 2-D echocardiogram shows ejection fraction 50% to 55% and mild valvular abnormalities. ASSESSMENT: 1. Congestive heart failure, acute exacerbation, with acute on chronic diastolic dysfunction, ejection 50% to 55%. 2. Possible acute tracheobronchitis. 3. Anemia, normocytic. 4. Increased creatinine with chronic kidney disease stage III. 5. Troponin 0.35, indeterminate. 6. Increased d-dimer. 7. Diabetes mellitus type 2. 8. Diabetic Calvin ulcer, stage IV [id number] of the left foot second digit. 9. Deep venous thrombosis history. 10. Hypertension. 11. Hyperlipidemia. 12. Pulmonary nodules history. 13. History of cataracts. 14. Diabetic retinopathy. 15. Right ear hearing loss. 16. History of VRE and Methicillin-resistant Staph aureus. 17. Remote history nicotine dependence. 18. FULL CODE. RECOMMENDATIONS AND DISCUSSION: This 71-year-old gentleman who presented with multiple complex medical issues, we will monitor the patient closely. Continue the current medications and symptomatic treatment. Otherwise, at this time, the patient was started on ceftazidime at this time. We will optimize the bronchodilator treatment, continue with the current medications, continue with Lasix. Cardiology and pulmonology consultations as well. has also been continued. Cultures. Resume the home medications. DVT prophylaxis. Guarded prognosis because of multiple complex medical issues. Further recommendations to follow. A copy of dictation being forwarded to Dr. Jack De Jesus who is the primary physician. COURTNEY
[2017-01-07] MEDS: INSULIN LISPRO (humaLOG) 300 UNIT/3 ML VIAL SQ SCH ×2 (17:28→21:27)
[2017-01-07] MEDS: ATORVASTATIN 10 MG TAB PO SCH (20:05)
[2017-01-07] MEDS: LOSARTAN 50 MG TAB PO SCH (20:06)
[2017-01-07] MEDS: ACETAMINOPHEN TAB 325 MG TAB PO PRN (20:07)
[2017-01-07 20:32] LABS: Glucose,Whole Blood 234 mg/dL (75-99)
[2017-01-08 03:44] LABS: Basophils % (A) 0 %; CH 27.2; Eosinophils # (A) 0.8 k/uL (0-0.7); Eosinophils % (A) 11 %; HCT 35.1 % (39.0-53.0); HDW 3.34; Luc # (Auto) 0.19; Luc % (Auto) 3; Lymphocytes # (A) 0.9 k/uL (1.0-4.8); Lymphocytes % (A) 13 %; MCHC 31.5 g/dL (31.0-37.0); MCV 82.7 fL (80.0-100.0); Mean Platelet Volume 8.5; Monocytes # (A) 0.4 k/uL (0-1.0); Monocytes % (A) 6 %; Neutrophils # (A) 4.8 k/uL (1.3-7.7); Neutrophils % (A) 67 %; RBC 4.24 m/uL (4.30-5.90); RDW 15.6 % (11.5-15.5); WBC 7.1 k/uL (3.8-10.6); WBC (Perox) 7.68
[2017-01-08 05:50] LABS: Glucose,Whole Blood 170 mg/dL (75-99)
[2017-01-08] MEDS: PANTOPRAZOLE 40 MG TABLET PO SCH (06:47)
[2017-01-08] MEDS: INSULIN LISPRO (humaLOG) 300 UNIT/3 ML VIAL SQ SCH ×4 (06:55→22:04)
[2017-01-08] MEDS: ASCORBIC ACID 500 MG TAB PO SCH ×3 (08:02→19:44)
[2017-01-08] MEDS: cloNIDine HCL 0.2 MG TAB PO SCH ×2 (08:02→19:41)
[2017-01-08] MEDS: METOPROLOL TARTRATE 50 MG TAB PO SCH ×2 (08:04→19:42)
[2017-01-08] MEDS: LOSARTAN 50 MG TAB PO SCH ×2 (08:04→19:42)
[2017-01-08] MEDS: FUROSEMIDE 10 MG/ML 4 ML VIAL IV SCH ×2 (08:04→19:41)
[2017-01-08] MEDS: DAPTOmycin 500 MG in SODIUM CHLORIDE 0.9% 50 ML IV SCH (08:07)
[2017-01-08] MEDS: INSULIN NPH/REG INSULIN 70/30 300 UNIT/3 ML VIAL SQ SCH ×3 (08:14→16:35)
[2017-01-08] MEDS: IPRATROPIUM-ALBUTEROL 3 ML NEB INHALATION SCH ×4 (08:51→20:52)
[2017-01-08 10:07] VITALS: BMI 29.0
[2017-01-08 12:11] LABS: Glucose,Whole Blood 356 mg/dL (75-99)
[2017-01-08] MEDS: HEPARIN SODIUM,PORCINE 5,000 UNIT/ML 1 ML VIAL SQ SCH ×2 (12:14→19:42)
--- NOTE | 2017-01-08 12:51 | P.PN ---
Subjective Principal diagnosis: shortness of breath and cough this is a 71-year-old gentleman with known history of hypertension, hyperlipidemia, prior DVT, diabetes, chronic kidney disease, MRSA, VRE of the left foot, currently being treated at the wound center for his left foot. Patient presented to . the hospital with symptoms of increased shortness of breath with associated cough and congestion. He was transferred here to [facility] for further care. Chest x-ray revealed evidence of a right lower lobe infiltrate with a small effusion. There is cardiomegaly and bilateral hilar prominence. Patient also has a left upper extremity PICC line in place. D- dimer was 2.38, VQ scan was performed which was intermediate probability for pulmonary embolism. Patient is currently on IV heparin drip. Influenza screen was negative. Blood pressure today 144/70 with a heart rate in the 70s.Patient was noted to have mild troponin abnormality,upon review of his EKG it was noted also that he had some dynamic EKG changes. The patient was instructed that once the issues with his left foot are resolved, he may need to have a stress test, as an outpatient.echocardiogram with Doppler study was performed which revealed an ejection fraction of 50-55%.patient is currently on IV Lasix 40 mg every 8 hourly. Objective - Vital Signs Vital signs: Vital Signs Temp 98 F 01/08/17 12:00 Pulse 74 01/08/17 12:00 Resp 16 01/08/17 12:00 BP 145/72 01/08/17 12:00 Pulse Ox 96 01/08/17 12:00 Intake & Output 01/07/17 01/08/17 01/08/17 18:59 06:59 18:59 Intake Total 489.583 175.421 Output Total 1225 1300 Balance -735.417 -1124.579 Weight 105.3 kg 105.3 kg Intake: Intake, IV Titration 9.583 175.421 Amount Heparin Sodium,Porcine/ 175.421 D5w Pmx 25,000 unit In Dextrose/Water 1 500ml. bag @ 9.3 UNITS/KG/HR 20. 01 mls/hr IV .Q24H [facility] Rx #:[id number] Insulin Regular 100 unit 9.583 In Sodium Chloride 0.9% 100 ml @ Titrate IV .Q0M [facility] Rx#:[id number] Oral 480 Output: Urine 1225 1300 - Exam PHYSICAL EXAMINATION: HEENT: [Head is atraumatic, normocephalic. Pupils equal, round. Neck is supple. There is no elevated jugular venous pressure.] HEART EXAMINATION: [Heart S1, S2 normal. No murmur or gallop heard.] CHEST EXAMINATION:[ Lungs are clear to auscultation and precussion. No chest wall tenderness is noted on palpation or with deep breathing.] ABDOMEN: [ Soft, nontender. Bowel sounds are heard. No organomegaly noted]. EXTREMITIES:there is evidence of amputation of the toes on the left foot with open wounds. No significant peripheral edema. Peripheral pulses intact. NEUROLOGIC [patient is awake, alert and oriented -3.] . - Labs CBC & Chem 7: 01/08/17 03:37 01/07/17 06:15 Labs: Abnormal Lab Results - Last 24 Hours (Table) 01/07/17 01/07/17 01/07/17 Range/Units 16:39 16:45 20:30 RBC (4.30-5.90) m/uL Hgb (13.0-17.5) gm/dL Hct (39.0-53.0) % RDW (11.5-15.5) % Lymphocytes # (1.0-4.8) k/uL Eosinophils # (0-0.7) k/uL APTT (22.0-30.0) sec POC Glucose (mg/dL) 252 H 234 H (75-99) mg/dL Troponin I 0.269 H* (0.000-0.034) ng/mL 01/07/17 01/08/17 01/08/17 Range/Units 22:18 03:37 03:37 RBC 4.24 L (4.30-5.90) m/uL Hgb 11.0 L (13.0-17.5) gm/dL Hct 35.1 L (39.0-53.0) % RDW 15.6 H (11.5-15.5) % Lymphocytes # 0.9 L (1.0-4.8) k/uL Eosinophils # 0.8 H (0-0.7) k/uL APTT 48.9 H (22.0-30.0) sec POC Glucose (mg/dL) (75-99) mg/dL Troponin I 0.300 H* (0.000-0.034) ng/mL 01/08/17 01/08/17 Range/Units 05:45 11:47 RBC (4.30-5.90) m/uL Hgb (13.0-17.5) gm/dL Hct (39.0-53.0) % RDW (11.5-15.5) % Lymphocytes # (1.0-4.8) k/uL Eosinophils # (0-0.7) k/uL APTT (22.0-30.0) sec POC Glucose (mg/dL) 170 H 356 H (75-99) mg/dL Troponin I (0.000-0.034) ng/mL Microbiology - Last 24 Hours (Table) 01/06/17 22:10 Blood Culture - Preliminary Blood No Growth after 24 hours 01/06/17 21:54 Blood Culture - Preliminary Blood No Growth after 24 hours Assessment and Plan (1) Diastolic CHF, acute on chronic Status: Acute (2) Sepsis Status: Acute (3) Osteomyelitis Status: Acute (4) Hx of deep venous thrombosis Status: Acute (5) Diabetes Status: Acute (6) HTN (hypertension) Status: Acute (7) Hyperlipemia Status: Acute (8) Renal failure Status: Acute (9) MRSA (methicillin resistant Staphylococcus aureus) Status: Acute Plan: From cardiology's perspective, we will discontinue the IV heparin and start the patient on subcu heparin. Once the patient is stable from an infectious process , would recommend outpatient stress testing in the office post discharge. DNP note has been reviewed, I agree with a documented findings and plan of care. Patient was seen and examined.
--- NOTE | 2017-01-08 13:20 | P.PN ---
Subjective This is a very pleasant 71-year-old gentleman with a history of diabetes mellitus, type II with evidence of Gopal grade for ulceration of the left foot. He also has a history of DVT, hypertension, hyperlipidemia, neuropathy, stage III kidney disease, MRSA, VRE both of the left foot. He has been treated in the wound Center for the same. He has undergone a left second and third toe amputation and partial amputation of the great toe. He was most recently seen by Dr. Franco in the wound Center for debridement and application of aqua cell Silver. He recently developed complaints of increasing shortness of breath, cough and congestion. He was initially seen and [facility] and eventually transferred here for further care. He is seen today in consultation. His chest x-ray reveals evidence of a right lower lobe infiltrate with small effusion. There is cardiomegaly and bilateral hilar prominence pamela pulmonary artery enlargement versus arterial hypertension. He has a left upper extremity PICC line in place. The d-dimer is 2.38. Creatinine 2.27 and were unable to obtain a CT angiogram. A VQ scan reveals intermediate probability for pulmonary embolism. He has been initiated on a heparin drip. Influenza screen is negative. Troponin 0.352. He has preserved left ventricular systolic function with estimated ejection fraction 50-55%. He is also been seen in consultation by Dr. Cowart who initiated daptomycin and ceftazidime. He is seen again today 01/08/2017 in follow-up on the selective care unit. He is awake and alert in no acute distress. He denies any shortness of breath, cough or congestion. He is maintaining good O2 saturations in the upper 90s on room air. Pulmonary embolism was considered less likely per Dr. Alonso. He's been treated for an acute exacerbation of congestive heart failure. He has been seen and evaluated by cardiology. IV heparin was discontinued. They're recommending outpatient stress test. Objective - Vital Signs Vital signs: Vital Signs Temp 98 F 01/08/17 12:00 Pulse 74 01/08/17 12:00 Resp 16 01/08/17 12:00 BP 145/72 01/08/17 12:00 Pulse Ox 96 01/08/17 12:00 Intake & Output 01/07/17 01/08/17 01/08/17 18:59 06:59 18:59 Intake Total 489.583 175.421 Output Total 1225 1300 Balance -735.417 -1124.579 Weight 105.3 kg 105.3 kg Intake: Intake, IV Titration 9.583 175.421 Amount Heparin Sodium,Porcine/ 175.421 D5w Pmx 25,000 unit In Dextrose/Water 1 500ml. bag @ 9.3 UNITS/KG/HR 20. 01 mls/hr IV .Q24H [facility] Rx #:[id number] Insulin Regular 100 unit 9.583 In Sodium Chloride 0.9% 100 ml @ Titrate IV .Q0M [facility] Rx#:[id number] Oral 480 Output: Urine 1225 1300 - Exam GENERAL EXAM: Alert, comfortable in no apparent distress. HEAD: Normocephalic. EYES: Normal reaction of pupils, equal size. NOSE: Clear with pink turbinates. THROAT: No erythema or exudates. NECK: No masses, no JVD. CHEST: No chest wall deformity. LUNGS: Equal air entry with no crackles, wheeze, rhonchi or dullness. CVS: S1 and S2 normal with no audible murmurs, regular rhythm. ABDOMEN: No hepatosplenomegaly, normal bowel sounds, no guarding or rigidity. Extremities: There is evidence of amputation of the toes of the left foot with open wounds. No significant peripheral edema. No clubbing, no cyanosis. Peripheral pulses are intact. - Labs CBC & Chem 7: 01/08/17 03:37 01/07/17 06:15 Labs: Abnormal Lab Results - Last 24 Hours (Table) 01/07/17 01/07/17 01/07/17 Range/Units 16:39 16:45 20:30 RBC (4.30-5.90) m/uL Hgb (13.0-17.5) gm/dL Hct (39.0-53.0) % RDW (11.5-15.5) % Lymphocytes # (1.0-4.8) k/uL Eosinophils # (0-0.7) k/uL APTT (22.0-30.0) sec POC Glucose (mg/dL) 252 H 234 H (75-99) mg/dL Troponin I 0.269 H* (0.000-0.034) ng/mL 01/07/17 01/08/17 01/08/17 Range/Units 22:18 03:37 03:37 RBC 4.24 L (4.30-5.90) m/uL Hgb 11.0 L (13.0-17.5) gm/dL Hct 35.1 L (39.0-53.0) % RDW 15.6 H (11.5-15.5) % Lymphocytes # 0.9 L (1.0-4.8) k/uL Eosinophils # 0.8 H (0-0.7) k/uL APTT 48.9 H (22.0-30.0) sec POC Glucose (mg/dL) (75-99) mg/dL Troponin I 0.300 H* (0.000-0.034) ng/mL 01/08/17 01/08/17 Range/Units 05:45 11:47 RBC (4.30-5.90) m/uL Hgb (13.0-17.5) gm/dL Hct (39.0-53.0) % RDW (11.5-15.5) % Lymphocytes # (1.0-4.8) k/uL Eosinophils # (0-0.7) k/uL APTT (22.0-30.0) sec POC Glucose (mg/dL) 170 H 356 H (75-99) mg/dL Troponin I (0.000-0.034) ng/mL Microbiology - Last 24 Hours (Table) 01/06/17 22:10 Blood Culture - Preliminary Blood No Growth after 24 hours 01/06/17 21:54 Blood Culture - Preliminary Blood No Growth after 24 hours Assessment and Plan Plan: Impression: #1 Acute sepsis secondary to osteomyelitis. Intermediate probability of pulmonary embolism in the right lower lobe considered less likely. #2 Acute exacerbation of diastolic congestive heart failure. Preserved left ventricular systolic function with estimated ejection fraction 50-55%. #2 History of DVT. Dopplers of the lower extremities from [facility] reported negative for DVT. #3 Diabetes mellitus, type II. #4 Diabetic neuropathy. #5 Nonhealing wounds of the toes of the left foot status post amputation of the second and third toe with osteomyelitis currently being treated in our wound Center. 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 #7 Hypertension. #8 Hyperlipidemia. #9 Acute on chronic stage III renal failure. Plan: The patient was seen and evaluated by Dr. Julien. He is improved today as compared to yesterday. No significant shortness of breath. We'll continue with his current medications. We will increase his activity as tolerated. We' ll continue to follow make further recommendations based on his clinical status.
[2017-01-08 16:30] LABS: Glucose,Whole Blood 226 mg/dL (75-99)
--- NOTE | 2017-01-08 18:07 | P.PN ---
Subjective Principal diagnosis: Shortness of breath 71-year-old male who is followed wound healing center was recently hospitalized due to increasing difficulties with his left foot. In August 2016 he was having great difficulties with left foot second toe. Consequently on 08/31/2016 was taken to the operating room for the toe amputation. He has been followed in the wound healing center since that point in time. He's been treated with multiple interventions but continues to have nonhealing ulceration to that site. He was being treated with antibiotic therapy. Despite that he had some worsening. Consequently he was recently hospitalized 12/10/2016, culture showed change of pathogen to MRSA. Antibiotic therapy alter to daptomycin. . Continue following up in the wound healing Center, and is in need of hyperbaric oxygen therapy for limb salvage. Now presents with significant increasing shortness of breath. Also is having a fever of 102. Because of this he presented to the emergency center and has been admitted. His been seen by cardiology and he has been diagnosed with diastolic congestive heart failure and is receiving appropriate diuretic therapy at this time and antihypertensives. The patient however has become febrile. At the time of the consult influenza testing was requested back as negative. The patient is being followed in wound healing center as noted in receiving daptomycin therapy. However now developed a high-grade fever is noted to 102 with the significant shortness of breath. Appears to have congestive heart failure diastolic type. A VQ scan was performed and pulmonology believes he has pneumonia is not likely to have pulmonary embolus. Objective - Vital Signs Vital signs: Vital Signs Temp 97.1 F L 01/08/17 14:55 Pulse 72 01/08/17 16:55 Resp 16 01/08/17 14:55 BP 137/68 01/08/17 14:55 Pulse Ox 96 01/08/17 14:55 Intake & Output 01/07/17 01/08/17 01/08/17 18:59 06:59 18:59 Intake Total 489.583 175.421 Output Total 1225 1300 Balance -735.417 -1124.579 Weight 105.3 kg 105.3 kg Intake: Intake, IV Titration 9.583 175.421 Amount Heparin Sodium,Porcine/ 175.421 D5w Pmx 25,000 unit In Dextrose/Water 1 500ml. bag @ 9.3 UNITS/KG/HR 20. 01 mls/hr IV .Q24H [facility] Rx #:[id number] Insulin Regular 100 unit 9.583 In Sodium Chloride 0.9% 100 ml @ Titrate IV .Q0M [facility] Rx#:[id number] Oral 480 Output: Urine 1225 1300 - Exam Gen: This is a 71-year-old male. He is sitting up in bed and appears to be in no acute distress. No respiratory distress noted at rest. HEENT: Head is atraumatic, normocephalic. Pupils equal, round. Sclerae is anicteric. NECK: Supple. No JVD. No lymphadenopathy. No thyromegaly. LUNGS: Diminished to the bases. Clear to auscultation. No wheezes or rhonchi. No intercostal retractions. HEART: Irregular without a significant murmur. Soft S4. ABDOMEN: Soft. Bowel sounds are present. No masses. No tenderness. EXTREMITIES: Dorsalis pedis is palpable bilaterally. Patient has noted amputation on the right foot that is old and healed. Patient has amputation of the great toe and third toe oh which wounds are healed. There is a wound to the amputation site on the second toe and on the lateral metatarsal. Number [Left Lateral Foot] 2 Number [Left Distal Foot] 1 Current Wound Stage/Grade [ Grade 2 Left Lateral Foot] Current Wound Stage/Grade [ Grade 4 Left Distal Foot] Stage/Grade Change [Left No Lateral Foot] Stage/Grade Change [Left No Distal Foot] OP Wound Length [Left Lateral 1.5 Foot] OP Wound Length [Left Distal 2 Foot] OP Wound Width [Left Lateral 0.8 Foot] OP Wound Width [Left Distal 2.2 Foot] Wound Depth [Left Lateral Foot 0.9 ] Wound Depth [Left Distal Foot] 0.4 Tunneling [Left Lateral Foot] No Tunneling [Left Distal Foot] No Undermining [Left Lateral Foot No ] Undermining [Left Distal Foot] No NEUROLOGICAL: Patient is awake, alert and oriented x3 - Labs CBC & Chem 7: 01/08/17 03:37 01/07/17 06:15 Labs: Abnormal Lab Results - Last 24 Hours (Table) 01/07/17 01/07/17 01/08/17 Range/Units 20:30 22:18 03:37 RBC 4.24 L (4.30-5.90) m/uL Hgb 11.0 L (13.0-17.5) gm/dL Hct 35.1 L (39.0-53.0) % RDW 15.6 H (11.5-15.5) % Lymphocytes # 0.9 L (1.0-4.8) k/uL Eosinophils # 0.8 H (0-0.7) k/uL APTT (22.0-30.0) sec POC Glucose (mg/dL) 234 H (75-99) mg/dL Troponin I 0.300 H* (0.000-0.034) ng/mL 01/08/17 01/08/17 01/08/17 Range/Units 03:37 05:45 11:47 RBC (4.30-5.90) m/uL Hgb (13.0-17.5) gm/dL Hct (39.0-53.0) % RDW (11.5-15.5) % Lymphocytes # (1.0-4.8) k/uL Eosinophils # (0-0.7) k/uL APTT 48.9 H (22.0-30.0) sec POC Glucose (mg/dL) 170 H 356 H (75-99) mg/dL Troponin I (0.000-0.034) ng/mL 01/08/17 Range/Units 16:29 RBC (4.30-5.90) m/uL Hgb (13.0-17.5) gm/dL Hct (39.0-53.0) % RDW (11.5-15.5) % Lymphocytes # (1.0-4.8) k/uL Eosinophils # (0-0.7) k/uL APTT (22.0-30.0) sec POC Glucose (mg/dL) 226 H (75-99) mg/dL Troponin I (0.000-0.034) ng/mL Microbiology - Last 24 Hours (Table) 01/06/17 22:10 Blood Culture - Preliminary Blood No Growth after 24 hours 01/06/17 21:54 Blood Culture - Preliminary Blood No Growth after 24 hours Laboratory Results WBC 7.1 k/uL (3.8-10.6) 01/08/17 03:37 RBC 4.24 m/uL (4.30-5.90) L 01/08/17 03:37 Hgb 11.0 gm/dL (13.0-17.5) L 01/08/17 03:37 Hct 35.1 % (39.0-53.0) L 01/08/17 03:37 MCV 82.7 fL (80.0-100.0) 01/08/17 03:37 MCH 26.0 pg (25.0-35.0) 01/08/17 03:37 MCHC 31.5 g/dL (31.0-37.0) 01/08/17 03:37 RDW 15.6 % (11.5-15.5) H 01/08/17 03:37 Plt Count 212 k/uL (150-450) 01/08/17 03:37 Neutrophils % 67 % 01/08/17 03:37 Lymphocytes % 13 % 01/08/17 03:37 Monocytes % 6 % 01/08/17 03:37 Eosinophils % 11 % 01/08/17 03:37 Basophils % 0 % 01/08/17 03:37 Neutrophils # 4.8 k/uL (1.3-7.7) 01/08/17 03:37 Lymphocytes # 0.9 k/uL (1.0-4.8) L 01/08/17 03:37 Monocytes # 0.4 k/uL (0-1.0) 01/08/17 03:37 Eosinophils # 0.8 k/uL (0-0.7) H 01/08/17 03:37 Basophils # 0.0 k/uL (0-0.2) 01/08/17 03:37 Hypochromasia Slight 01/07/17 10:08 PT 10.5 sec (9.0-12.0) 01/07/17 10:08 INR 1.0 (<1.1) 01/07/17 10:08 APTT 48.9 sec (22.0-30.0) H 01/08/17 03:37 D-Dimer 2.38 mg/L FEU (<0.60) H 01/07/17 10:08 Sodium 138 mmol/L (137-145) 01/07/17 06:15 Potassium 4.7 mmol/L (3.5-5.1) 01/07/17 06:15 Chloride 107 mmol/L (98-107) 01/07/17 06:15 Carbon Dioxide 18 mmol/L (22-30) L 01/07/17 06:15 Anion Gap 13 mmol/L 01/07/17 06:15 BUN 34 mg/dL (9-20) H 01/07/17 06:15 Creatinine 2.27 mg/dL (0.66-1.25) H 01/07/17 06:15 Est GFR (MDRD) Af Amer 35 (>60 ml/min/1.73 sqM) 01/07/17 06:15 Est GFR (MDRD) Non-Af 29 (>60 ml/min/1.73 sqM) 01/07/17 06:15 Glucose 153 mg/dL (74-99) H 01/07/17 06:15 POC Glucose (mg/dL) 226 mg/dL (75-99) H 01/08/17 16:29 POC Glu Thermostat Repairer Elisa Burt 01/08/17 16:[address] Glu mg/dL 189 mg/dL 01/06/17 21:54 Hemoglobin A1c 8.2 % (4.2-6.1) H 01/06/17 21:54 Plasma Lactic Acid [place] 1.3 mmol/L (0.7-2.0) 01/06/17 21:54 Calcium 9.0 mg/dL (8.4-10.2) 01/07/17 06:15 Troponin I 0.300 ng/mL (0.000-0.034) H* 01/07/17 22:18 NT-Pro-B Natriuret Pep 74535 pg/mL 01/07/17 10:08 Influenza Type A RNA Not Detected (Not Detectd) 01/07/17 07:00 Influenza Type B (PCR) Not Detected (Not Detectd) 01/07/17 07:00 Microbiology 01/06/17 22:10 Blood Blood Culture - Preliminary No Growth after 24 hours 01/06/17 21:54 Blood Blood Culture - Preliminary No Growth after 24 hours Assessment and Plan (1) Diastolic CHF, acute on chronic Narrative/Plan: 71-year-old male presents to Hospital with shortness of breath. Find evidence of an acute on chronic diastolic congestive heart failure. With diuresis and treatment of this he is now feeling somewhat better. But not yet to baseline. Still has some shortness of breath. He has high-grade fever at admission has improved. Seems to be responding well to antibiotic therapy with daptomycin been receiving for the MRSA infection to his foot and the addition of gram- negative coverage with Fortaz. Cultures are pending at this point in time. Fever has improved BNP is markedly elevated. Influenza testing was negative VQ scan was intermediate pulmonary has evaluated and believes it's from his pneumonia. Status: Acute (2) MRSA (methicillin resistant Staphylococcus aureus) Status: Acute (3) Osteomyelitis Status: Acute (4) Fever Status: Acute (5) Pneumonia due to organism Status: Acute
[2017-01-08] MEDS: ATORVASTATIN 10 MG TAB PO SCH (19:41)
[2017-01-08 21:28] LABS: Glucose,Whole Blood 257 mg/dL (75-99)
--- NOTE | 2017-01-08 21:53 | PN ---
DATE OF SERVICE: 01/08/2017 This 71-year-old gentleman who was admitted with CHF acute exacerbation also had possible acute purulent tracheobronchitis. The patient also has a troponin elevated up to 0.3. The patient had acute osteomyelitis. Also Cardiology and Pulmonology and multiple consultants are following the patient closely. Shortness of breath slightly better, according to him. Intermediate possibility of pulmonary embolism was noted on the VQ scan WBC 7.5, hemoglobin is 11.1. NT-proBNP is elevated to 14,700. Two-D echo with Doppler showed ejection fraction about 50% to 55% with moderate . PAST MEDICAL HISTORY: Reviewed. REVIEW OF SYSTEMS: CARDIOVASCULAR: No angina, palpitations. RESPIRATORY: As mentioned earlier. GI: As mentioned earlier. : As mentioned earlier. NERVOUS: No numbness or weakness. Current medications are reviewed, include: 1. Tylenol 650 every 6 hours p.r.n. 2. [place] 5 mg q.h.s. p.r.n. 3. DuoNeb q.i.d. and p.r.n. 4. Xanax 0.5 q.8. 5. Vitamin C 500 mg p.o. t.i.d. 6. Lipitor 10 mg q.h.s. 7. Ceftazidime 2 g b.i.d. 8. Clonidine 0.2 b.i.d. 9. Daptomycin 500 mg daily. 10. Lasix 40 mg IV b.i.d. 11. Heparin 5 subcu b.i.d. 12. Humulin 70/30, 10 units q.a.c. t.i.d. 13. Cozaar 50 mg p.o. b.i.d. 14. Melatonin 3 mg q.h.s. p.r.n. 15. Lopressor 100 mg p.o. daily. 16. Protonix 40 mg q.h.s. PHYSICAL EXAM: Patient is alert and oriented x3. Pulse 75, blood pressure 137/60, respirations 16, temperature 97.1, pulse ox 96% on room air. HEENT: Conjunctivae normal. NECK: No jugular venous distension. CARDIOVASCULAR SYSTEM: S1, S2 muffled. RESPIRATORY: Breath sounds diminished in the bases. Bilateral scattered rhonchi and crackles. Abdomen is soft, nontender. No mass palpable. LEGS: No edema. NERVOU SYSTEM: Higher functions as mentioned earlier. Moves all 4 limbs. No focal motor or sensory deficits. LYMPHATICS: No lymph nodes palpable in neck, axillae or groin. SKIN: No ulcer, rash or bleeding. Labs are WBC 7.0, hemoglobin is 11. Glucose 356. ASSESSMENT: 1. Congestive heart failure acute exacerbation with acute on chronic diastolic dysfunction, ejection fraction 50% to 55%. 2. Possible acute tracheobronchitis. 3. Troponin 0.300. Rule out acute non-ST elevation myocardial infarction. 4. Anemia, normocytic. 5. Increased creatinine with chronic kidney disease stage 3. 6. Increased D-dimer. 7. Intermediate probability of pulmonary embolism on the VQ scan. 8. Diabetes mellitus type 2. 9. Diabetic ulcer stage IV, nonpressure type, left foot, second digit. 10. History of deep venous thrombosis. 11. Hypertension. 12. Hyperlipidemia. 13. History of pulmonary nodules. 14. History of cataracts. 15. Diabetic retinopathy. 16. Right ear hearing loss. 17. History of vancomycin-resistant Enterococcus and methicillin-resistant Staphylococcus aureus. 18. Remotes history of nicotine dependence. 19. FULL CODE. RECOMMENDATION: In this 71-year-old gentleman who presented with multiple complex medical issues, will monitor patient closely. Continue the current medications, continue symptomatic treatment. Otherwise, Cardiology input appreciated. Continue with medical management. Continue with antibiotics. Infectious Disease has also been consulted. The cultures have been negative so far. Otherwise, guarded prognosis because of multiple complex medical issues. Further recommendations to follow. See orders for further details. Discussed with the patient and discussed with the family. COURTNEY
[2017-01-08 23:51] LABS: Appearance,Urine Clear (Clear); Bilirubin,Urine Negative (Negative); Glucose,Urine (UA) Negative (Negative); Ketones,Urine Negative (Negative); Leukocyte Esterase,Urine Negative (Negative); Nitrite,Urine Negative (Negative); Protein,Urine Trace (Negative); Specific Gravity,Urine 1.005 (1.001-1.035); UA Billing (MACRO vs. MICRO) CHEM; Urobilinogen,Urine <2.0 mg/dL (<2.0)
[2017-01-09 06:14] LABS: Basophils % (A) 1 %; CH 26.9; CHCM 31.9; Eosinophils # (A) 0.6 k/uL (0-0.7); Eosinophils % (A) 10 %; HCT 39.5 % (39.0-53.0); HDW 3.26; HGB 12.6 gm/dL (13.0-17.5); Hypochromasia Slight; Luc # (Auto) 0.14; Luc % (Auto) 2; Lymphocytes # (A) 1.1 k/uL (1.0-4.8); Lymphocytes % (A) 17 %; MCH 26.9 pg (25.0-35.0); MCHC 31.8 g/dL (31.0-37.0); MCV 84.7 fL (80.0-100.0); Mean Platelet Volume 9.6; Monocytes # (A) 0.4 k/uL (0-1.0); Monocytes % (A) 6 %; Neutrophils # (A) 4.2 k/uL (1.3-7.7); Neutrophils % (A) 65 %; RBC 4.66 m/uL (4.30-5.90); RDW 15.6 % (11.5-15.5); WBC 6.5 k/uL (3.8-10.6); WBC (Perox) 6.45
[2017-01-09 06:14] LABS: Glucose,Whole Blood 207 mg/dL (75-99)
[2017-01-09] MEDS: PANTOPRAZOLE 40 MG TABLET PO SCH (07:06)
[2017-01-09] MEDS: INSULIN LISPRO (humaLOG) 300 UNIT/3 ML VIAL SQ SCH ×4 (07:06→21:20)
[2017-01-09] MEDS: INSULIN NPH/REG INSULIN 70/30 300 UNIT/3 ML VIAL SQ SCH ×3 (07:07→17:04)
[2017-01-09] MEDS: IPRATROPIUM-ALBUTEROL 3 ML NEB INHALATION SCH ×4 (08:10→20:38)
[2017-01-09] MEDS: DAPTOmycin 500 MG in SODIUM CHLORIDE 0.9% 50 ML IV SCH (08:18)
[2017-01-09] MEDS: cloNIDine HCL 0.2 MG TAB PO SCH ×2 (08:19→21:19)
[2017-01-09] MEDS: FUROSEMIDE 10 MG/ML 4 ML VIAL IV SCH ×2 (08:19→21:19)
[2017-01-09] MEDS: ASCORBIC ACID 500 MG TAB PO SCH ×3 (08:19→21:19)
[2017-01-09] MEDS: HEPARIN SODIUM,PORCINE 5,000 UNIT/ML 1 ML VIAL SQ SCH ×2 (08:19→21:19)
[2017-01-09] MEDS: LOSARTAN 50 MG TAB PO SCH ×2 (08:20→21:20)
[2017-01-09] MEDS: METOPROLOL TARTRATE 50 MG TAB PO SCH ×2 (08:20→21:19)
[2017-01-09 11:32] LABS: Glucose,Whole Blood 380 mg/dL (75-99)
--- NOTE | 2017-01-09 12:09 | P.PN ---
Subjective Progress note dated 01/09/2017 This is a 71-year-old male who was admitted with a diagnosis of shortness of breath. We felt that his shortness of breath was probably related to underlying CHF. He had an elevated BNP. His chest x-ray was consistent with fluid overload. He also has some mildly elevated troponins. The patient is doing much better. Was much better yesterday as well. His shortness of breath chest congestion has improved. No chest pain. He is on antibiotics for osteomyelitis. The IV heparin was discontinued. Objective - Vital Signs Vital signs: Vital Signs Temp 97.9 F 01/09/17 08:00 Pulse 80 01/09/17 11:27 Resp 16 01/09/17 08:00 BP 133/82 01/09/17 08:00 Pulse Ox 98 01/09/17 08:00 Intake & Output 01/08/17 01/09/17 01/09/17 18:59 06:59 18:59 Intake Total 236 100 50 Output Total 1375 0 Balance 236 -1275 50 Weight 105.3 kg 103.6 kg Intake: IV 100 cefTAZidime 2 gm In 100 Sodium Chloride 0.9% 100 ml @ 100 mls/hr IVPB Q12H [facility] Rx#:[id number] Oral 236 50 Output: Urine 1375 0 - Exam No acute distress, oriented 3. HEENT examination is grossly unremarkable. Mucous membranes are moist. No oral lesions. Neck supple. Full range of motion. No adenopathy or thyromegaly. Cardiovascular examination reveals regular rhythm rate S1-S2 normal. No S3-S4. No murmur. Lungs reveal relatively clear breath sounds. No wheezes rhonchi or crackles. Abdomen soft bowel sounds are heard. Extremities are intact. - Labs CBC & Chem 7: 01/09/17 05:37 01/07/17 06:15 Labs: Abnormal Lab Results - Last 24 Hours (Table) 01/08/17 01/08/17 01/08/17 Range/Units 11:47 16:29 21:26 Hgb (13.0-17.5) gm/dL RDW (11.5-15.5) % POC Glucose (mg/dL) 356 H 226 H 257 H (75-99) mg/dL Urine Protein (Negative) 01/08/17 01/09/17 01/09/17 Range/Units 23:30 05:37 06:13 Hgb 12.6 L (13.0-17.5) gm/dL RDW 15.6 H (11.5-15.5) % POC Glucose (mg/dL) 207 H (75-99) mg/dL Urine Protein Trace H (Negative) 01/09/17 Range/Units 11:29 Hgb (13.0-17.5) gm/dL RDW (11.5-15.5) % POC Glucose (mg/dL) 380 H (75-99) mg/dL Urine Protein (Negative) Microbiology - Last 24 Hours (Table) 01/06/17 22:10 Blood Culture - Preliminary Blood No Growth after 48 hours 01/06/17 21:54 Blood Culture - Preliminary Blood No Growth after 48 hours Assessment and Plan (1) Diastolic CHF, acute on chronic Status: Acute (2) Fever Status: Acute (3) Hyperlipemia Status: Acute (4) MRSA (methicillin resistant Staphylococcus aureus) Status: Acute (5) Osteomyelitis Status: Acute (6) Sepsis Status: Acute (7) Gangrene Status: Acute (8) Osteomyelitis of left foot Status: Acute (9) Type 2 diabetes mellitus with foot ulcer and gangrene Status: Acute Plan: Plan dated 01/09/2017 The patient is doing much better. He was much better yesterday. Continues to show improvement. The patient's breathing has improved. Continues on antibiotics for his osteomyelitis. Seen by cardiology. Heparin was discontinued. Time with Patient: Less than 30
[2017-01-09 16:51] LABS: Glucose,Whole Blood 226 mg/dL (75-99)
[2017-01-09 20:35] LABS: Glucose,Whole Blood 235 mg/dL (75-99)
[2017-01-09] MEDS: ATORVASTATIN 10 MG TAB PO SCH (21:19)
[2017-01-10 05:41] LABS: Glucose,Whole Blood 128 mg/dL (75-99)
[2017-01-10] MEDS: INSULIN LISPRO (humaLOG) 300 UNIT/3 ML VIAL SQ SCH ×4 (05:45→21:33)
[2017-01-10 06:55] LABS: Basophils # (A) 0.1 k/uL (0-0.2); Basophils % (A) 1 %; CH 26.3; CHCM 29.4; Eosinophils # (A) 0.8 k/uL (0-0.7); Eosinophils % (A) 9 %; HCT 43.3 % (39.0-53.0); HDW 3.13; HGB 13.2 gm/dL (13.0-17.5); Hypochromasia Marked; Luc # (Auto) 0.25; Luc % (Auto) 3; Lymphocytes # (A) 1.1 k/uL (1.0-4.8); Lymphocytes % (A) 12 %; MCH 27.3 pg (25.0-35.0); MCHC 30.4 g/dL (31.0-37.0); Mean Platelet Volume 8.8; Monocytes # (A) 0.6 k/uL (0-1.0); Monocytes % (A) 7 %; Neutrophils % (A) 69 %; RBC 4.81 m/uL (4.30-5.90); RDW 15.4 % (11.5-15.5); WBC 8.8 k/uL (3.8-10.6); WBC (Perox) 9.14
[2017-01-10 06:57] LABS: MCV 89.9 fL (80.0-100.0)
[2017-01-10] MEDS: INSULIN NPH/REG INSULIN 70/30 300 UNIT/3 ML VIAL SQ SCH ×3 (07:31→17:16)
[2017-01-10] MEDS: PANTOPRAZOLE 40 MG TABLET PO SCH (07:32)
[2017-01-10] MEDS: METOPROLOL TARTRATE 50 MG TAB PO SCH ×2 (07:58→21:33)
[2017-01-10] MEDS: LOSARTAN 50 MG TAB PO SCH ×2 (07:58→21:33)
[2017-01-10] MEDS: cloNIDine HCL 0.2 MG TAB PO SCH ×2 (07:58→21:33)
[2017-01-10] MEDS: HEPARIN SODIUM,PORCINE 5,000 UNIT/ML 1 ML VIAL SQ SCH ×2 (07:58→21:33)
[2017-01-10] MEDS: ASCORBIC ACID 500 MG TAB PO SCH ×3 (07:58→21:33)
[2017-01-10] MEDS: FUROSEMIDE 10 MG/ML 4 ML VIAL IV SCH (07:58)
[2017-01-10] MEDS: DAPTOmycin 500 MG in SODIUM CHLORIDE 0.9% 50 ML IV SCH (07:59)
[2017-01-10] MEDS: IPRATROPIUM-ALBUTEROL 3 ML NEB INHALATION SCH ×4 (09:39→20:09)
--- NOTE | 2017-01-10 09:58 | PN ---
DATE OF SERVICE: 01/09/2017 This 71 -year-old gentleman who was admitted with CHF acute exacerbation, with acute on chronic diastolic dysfunction, ejection fraction also had possible acute tracheobronchitis. The patient also had elevated troponin also. The patient also has significant diabetic ulcer and possibly osteomyelitis also. Dr. Cowart following the patient closely. The cultures most recent cultures are negative, but the patient recently had MRSA and polymicrobial cultures from the wound. Past medical history reviewed. REVIEW OF SYSTEMS: CARDIOVASCULAR: No angina or palpitations. RESPIRATORY: As mentioned earlier. GASTROINTESTINAL: As mentioned earlier. GENITOURINARY: No dysuria. CENTRAL NERVOUS SYSTEM: No numbness or weakness. Current Medications are reviewed and include: 1. Tylenol 650 q.6 p.r.n. 2. [place] 5 mg q.6h p.r.n. 3. DuoNeb q.i.d. and p.r.n. 4. Xanax 0.25 q8 p.r.n. 5. Vitamin C 500 mg daily. 6. Lipitor 10 mg q.h.s. 7. Ceftazidime 2 grams IV b.i.d. 8. Catapres 0.2 b.i.d. 9. Daptomycin 500 mg daily. 10. Lasix 40 mg IV b.i.d. 11. Heparin 5000 subcu b.i.d. 12. Novolin 70/30 30 units subcu a.c. t.i.d. 13. Humalog a.c. and at bedtime. 14. Cozaar 50 mg p.o. b.i.d. 15. Melatonin 3 mg q.h.s. p.r.n. 16. Lopressor 100 mg p.o. b.i.d. 17. Protonix 40 mg with breakfast. PHYSICAL EXAMINATION: The patient is alert and oriented times three. Pulse 99, blood pressure 136/74, respirations 16, temperature 98 degrees, pulse ox 98% on room air. HEENT: Conjunctivae normal. NECK: No JVD. CARDIOVASCULAR: S1, S2 muffled. RESPIRATORY: Breath sounds diminished at the bases. A few scattered rhonchi and crackles. ABDOMEN: Soft, obese, nontender. Legs: Minimal edema. Otherwise, left foot osteomyelitis and present. Nervous system: No focal deficits. LABS: Hemoglobin 12.6. ASSESSMENT: 1. Congestive heart failure, acute exacerbation, with acute on chronic diastolic dysfunction, ejection fraction 50 to 55%. 2. Possible acute tracheobronchitis. 3. Troponin 0.36, rule out acute non-ST segment elevation myocardial infarction, indeterminate troponins. 4. Anemia, normocytic. 5. Acute on chronic diabetic ulcer stage IV [id number] of the left foot secondary to acute osteomyelitis. 6. Increased creatinine with chronic kidney disease, stage III. 7. Anemia, normocytic. 8. Increased d-dimer. 9. Intermediate probability of pulmonary embolism on the VQ scan. 10. Diabetes mellitus type 2. 11. History of deep venous thrombosis. 12. Hypertension. 13. Hyperlipidemia. 14. History of pulmonary nodules. 15. History of cataracts. 16. Diabetic retinopathy. 17. Right ear hearing loss. 18. 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 19. Remote history of nicotine dependence. 20. FULL CODE. RECOMMENDATIONS AND DISCUSSION: Recommend to continue current medications. Current with monitoring, symptomatic treatment. Continue with broad-spectrum IV antibiotics. Closely follow with cardiology as well as multiple consultants. Dr. Cowart is also following the patient closely. Prognosis guarded because of multiple complex medical issues. The patient might require prolonged IV antibiotic treatment. Further recommendations to follow. ANND
[2017-01-10 11:55] LABS: Glucose,Whole Blood 184 mg/dL (75-99)
--- NOTE | 2017-01-10 14:55 | XR ---
EXAMINATION TYPE: XR chest 2V DATE OF EXAM: 01/10/2017 1:23 PM COMPARISON: Prior chest x-ray December HISTORY: Congestive heart failure TECHNIQUE: Frontal and lateral views of the chest are obtained and submitted on 3 images. FINDINGS: There is no focal air space opacity, pleural effusion, or pneumothorax seen. The cardiac silhouette size is stable. Interstitium is improved. Left-sided PICC line shows the distal tip super imposing the superior vena cava. The osseous structures are intact. IMPRESSION: Improvement in volume status
--- NOTE | 2017-01-10 14:58 | P.PN ---
Subjective Principal diagnosis: shortness of breath and cough this is a 71-year-old gentleman with known history of hypertension, hyperlipidemia, prior DVT, diabetes, chronic kidney disease, MRSA, VRE of the left foot, currently being treated at the wound center for his left foot. Patient presented to Dr. the hospital with symptoms of increased shortness of breath with associated cough and congestion. He was transferred here to [facility] for further care. Chest x-ray revealed evidence of a right lower lobe infiltrate with a small effusion. There is cardiomegaly and bilateral hilar prominence. Patient also has a left upper extremity PICC line in place. D- dimer was 2.38, VQ scan was performed which was intermediate probability for pulmonary embolism. influenza screen was negative. Blood pressure today 129/64 with a heart rate in the 70s.Patient was noted to have mild troponin abnormality,upon review of his EKG it was noted also that he had some dynamic EKG changes. The patient was instructed that once the issues with his left foot are resolved, he may need to have a stress test, as an outpatient.Echocardiogram with Doppler study was performed which revealed an ejection fraction of 50-55%.patient is currently on IV Lasix 40 mg every 8 hourly. We will discontinue the IV Lasix today and start the patient on oral diuretics. He may be able to be discharged once cleared by infectious disease and primary care. A follow-up appointment will be made with Dr. See in the office post discharge. Objective - Vital Signs Vital signs: Vital Signs Temp 97.0 F L 01/10/17 11:15 Pulse 99 01/10/17 11:15 Resp 16 01/10/17 11:15 BP 129/64 01/10/17 11:15 Pulse Ox 96 01/10/17 11:15 Intake & Output 01/09/17 01/10/17 01/10/17 18:59 06:59 18:59 Intake Total 50 100 480 Output Total 450 650 Balance -400 -550 480 Weight 103.1 kg Intake: IV 100 cefTAZidime 2 gm In 100 Sodium Chloride 0.9% 100 ml @ 100 mls/hr IVPB Q12H [facility] Rx#:[id number] Oral 50 480 Output: Urine 450 650 Other: Voiding Method Toilet Toilet Urinal Urinal - Exam PHYSICAL EXAMINATION: HEENT: [Head is atraumatic, normocephalic. Pupils equal, round. Neck is supple. There is no elevated jugular venous pressure.] HEART EXAMINATION: [Heart S1, S2 normal. No murmur or gallop heard.] CHEST EXAMINATION:[ Lungs are clear to auscultation and precussion. No chest wall tenderness is noted on palpation or with deep breathing.] ABDOMEN: [ Soft, nontender. Bowel sounds are heard. No organomegaly noted]. EXTREMITIES:there is evidence of amputation of the toes on the left foot with open wounds. No significant peripheral edema. Peripheral pulses intact. NEUROLOGIC [patient is awake, alert and oriented -3.] . - Labs CBC & Chem 7: 01/10/17 06:17 01/07/17 06:15 Labs: Abnormal Lab Results - Last 24 Hours (Table) 01/09/17 01/09/17 01/10/17 Range/Units 16:38 20:34 05:40 MCHC (31.0-37.0) g/dL Eosinophils # (0-0.7) k/uL POC Glucose (mg/dL) 226 H 235 H 128 H (75-99) mg/dL 01/10/17 01/10/17 Range/Units 06:17 11:46 MCHC 30.4 L (31.0-37.0) g/dL Eosinophils # 0.8 H (0-0.7) k/uL POC Glucose (mg/dL) 184 H (75-99) mg/dL Microbiology - Last 24 Hours (Table) 01/06/17 22:10 Blood Culture - Preliminary Blood No Growth after 72 hours 01/06/17 21:54 Blood Culture - Preliminary Blood No Growth after 72 hours Assessment and Plan (1) Diastolic CHF, acute on chronic Status: Acute (2) Sepsis Status: Acute (3) Osteomyelitis Status: Acute (4) Hx of deep venous thrombosis Status: Acute (5) Diabetes Status: Acute (6) HTN (hypertension) Status: Acute (7) Hyperlipemia Status: Acute (8) Renal failure Status: Acute (9) MRSA (methicillin resistant Staphylococcus aureus) Status: Acute Plan: From cardiology's perspective, we'll discontinue the IV Lasix and start the patient on oral diuretics. Once the patient is discharged from the hospital follow-up appointment will be made with Dr. See in the office. After the infection clears patient was recommended to undergo outpatient stress testing. We will follow this patient with you now on an as-needed basis only, please don' t hesitate to call with any questions. DNP note has been reviewed, I agree with a documented findings and plan of care. Patient was seen and examined.
[2017-01-10] MEDS: FUROSEMIDE 20 MG TAB PO SCH (16:12)
--- NOTE | 2017-01-10 16:27 | P.PN ---
Subjective Principal diagnosis: Shortness of breath 71-year-old male who is followed wound healing center was recently hospitalized due to increasing difficulties with his left foot. In August 2016 he was having great difficulties with left foot second toe. Consequently on 08/31/2016 was taken to the operating room for the toe amputation. He has been followed in the wound healing center since that point in time. He's been treated with multiple interventions but continues to have nonhealing ulceration to that site. He was being treated with antibiotic therapy. Despite that he had some worsening. Consequently he was recently hospitalized 12/10/2016, culture showed change of pathogen to MRSA. Antibiotic therapy alter to daptomycin. . Continue following up in the wound healing Center, and is in need of hyperbaric oxygen therapy for limb salvage. Now presents with significant increasing shortness of breath. Also is having a fever of 102. Because of this he presented to the emergency center and has been admitted. His been seen by cardiology and he has been diagnosed with diastolic congestive heart failure and is receiving appropriate diuretic therapy at this time and antihypertensives. The patient however has become febrile. At the time of the consult influenza testing was requested back as negative. The patient is being followed in wound healing center as noted in receiving daptomycin therapy. However now developed a high-grade fever is noted to 102 with the significant shortness of breath. Appears to have congestive heart failure diastolic type. A VQ scan was performed and pulmonology believes he has pneumonia is not likely to have pulmonary embolus. Patient is now markedly improved. Shortness of breath is better than his baseline as of late. Significant lower extremity edema has resolved. He is feeling increased strength is an 40 going home tomorrow. His fever has resolved. Objective - Vital Signs Vital signs: Vital Signs Temp 97.0 F L 01/10/17 11:15 Pulse 80 01/10/17 16:05 Resp 16 01/10/17 11:15 BP 129/64 01/10/17 11:15 Pulse Ox 96 01/10/17 11:15 Intake & Output 01/09/17 01/10/17 01/10/17 18:59 06:59 18:59 Intake Total 50 100 480 Output Total 450 650 375 Balance -400 -550 105 Weight 103.1 kg Intake: IV 100 cefTAZidime 2 gm In 100 Sodium Chloride 0.9% 100 ml @ 100 mls/hr IVPB Q12H [facility] Rx#:[id number] Oral 50 480 Output: Urine 450 650 375 Other: Voiding Method Toilet Toilet Urinal Urinal - Exam Gen: This is a 71-year-old male. He is sitting up in bed and appears to be in no acute distress. No respiratory distress noted at rest. HEENT: Head is atraumatic, normocephalic. Pupils equal, round. Sclerae is anicteric. NECK: Supple. No JVD. No lymphadenopathy. No thyromegaly. LUNGS: Diminished to the bases. Clear to auscultation. No wheezes or rhonchi. No intercostal retractions. HEART: Irregular without a significant murmur. Soft S4. ABDOMEN: Soft. Bowel sounds are present. No masses. No tenderness. EXTREMITIES: Dorsalis pedis is palpable bilaterally. Patient has noted amputation on the right foot that is old and healed. Patient has amputation of the great toe and third toe oh which wounds are healed. There is a wound to the amputation site on the second toe and on the lateral metatarsal. Number [Left Lateral Foot] 2 Number [Left Distal Foot] 1 Current Wound Stage/Grade [ Grade 2 Left Lateral Foot] Current Wound Stage/Grade [ Grade 4 Left Distal Foot] Stage/Grade Change [Left No Lateral Foot] Stage/Grade Change [Left No Distal Foot] OP Wound Length [Left Lateral 1.5 Foot] OP Wound Length [Left Distal 2 Foot] OP Wound Width [Left Lateral 0.8 Foot] OP Wound Width [Left Distal 2.2 Foot] Wound Depth [Left Lateral Foot 0.9 ] Wound Depth [Left Distal Foot] 0.4 Tunneling [Left Lateral Foot] No Tunneling [Left Distal Foot] No Undermining [Left Lateral Foot No ] Undermining [Left Distal Foot] No NEUROLOGICAL: Patient is awake, alert and oriented x3 - Labs CBC & Chem 7: 01/10/17 06:17 01/07/17 06:15 Labs: Abnormal Lab Results - Last 24 Hours (Table) 01/09/17 01/09/17 01/10/17 Range/Units 16:38 20:34 05:40 MCHC (31.0-37.0) g/dL Eosinophils # (0-0.7) k/uL POC Glucose (mg/dL) 226 H 235 H 128 H (75-99) mg/dL 01/10/17 01/10/17 Range/Units 06:17 11:46 MCHC 30.4 L (31.0-37.0) g/dL Eosinophils # 0.8 H (0-0.7) k/uL POC Glucose (mg/dL) 184 H (75-99) mg/dL Microbiology - Last 24 Hours (Table) 01/06/17 22:10 Blood Culture - Preliminary Blood No Growth after 72 hours 01/06/17 21:54 Blood Culture - Preliminary Blood No Growth after 72 hours Laboratory Results WBC 8.8 k/uL (3.8-10.6) 01/10/17 06:17 RBC 4.81 m/uL (4.30-5.90) 01/10/17 06:17 Hgb 13.2 gm/dL (13.0-17.5) 01/10/17 06:17 Hct 43.3 % (39.0-53.0) 01/10/17 06:17 MCV 89.9 fL (80.0-100.0) D 01/10/17 06:17 MCH 27.3 pg (25.0-35.0) 01/10/17 06:17 MCHC 30.4 g/dL (31.0-37.0) L 01/10/17 06:17 RDW 15.4 % (11.5-15.5) 01/10/17 06:17 Plt Count 231 k/uL (150-450) 01/10/17 06:17 Neutrophils % 69 % 01/10/17 06:17 Lymphocytes % 12 % 01/10/17 06:17 Monocytes % 7 % 01/10/17 06:17 Eosinophils % 9 % 01/10/17 06:17 Basophils % 1 % 01/10/17 06:17 Neutrophils # 6.0 k/uL (1.3-7.7) 01/10/17 06:17 Lymphocytes # 1.1 k/uL (1.0-4.8) 01/10/17 06:17 Monocytes # 0.6 k/uL (0-1.0) 01/10/17 06:17 Eosinophils # 0.8 k/uL (0-0.7) H 01/10/17 06:17 Basophils # 0.1 k/uL (0-0.2) 01/10/17 06:17 Hypochromasia Marked 01/10/17 06:17 PT 10.5 sec (9.0-12.0) 01/07/17 10:08 INR 1.0 (<1.1) 01/07/17 10:08 APTT 48.9 sec (22.0-30.0) H 01/08/17 03:37 D-Dimer 2.38 mg/L FEU (<0.60) H 01/07/17 10:08 Sodium 138 mmol/L (137-145) 01/07/17 06:15 Potassium 4.7 mmol/L (3.5-5.1) 01/07/17 06:15 Chloride 107 mmol/L (98-107) 01/07/17 06:15 Carbon Dioxide 18 mmol/L (22-30) L 01/07/17 06:15 Anion Gap 13 mmol/L 01/07/17 06:15 BUN 34 mg/dL (9-20) H 01/07/17 06:15 Creatinine 2.27 mg/dL (0.66-1.25) H 01/07/17 06:15 Est GFR (MDRD) Af Amer 35 (>60 ml/min/1.73 sqM) 01/07/17 06:15 Est GFR (MDRD) Non-Af 29 (>60 ml/min/1.73 sqM) 01/07/17 06:15 Glucose 153 mg/dL (74-99) H 01/07/17 06:15 POC Glucose (mg/dL) 184 mg/dL (75-99) H 01/10/17 11:46 POC Glu Clinical Services Manager ID Andreia Leone 01/10/17 11:[address] Glu mg/dL 189 mg/dL 01/06/17 21:54 Hemoglobin A1c 8.2 % (4.2-6.1) H 01/06/17 21:54 Plasma Lactic Acid [place] 1.3 mmol/L (0.7-2.0) 01/06/17 21:54 Calcium 9.0 mg/dL (8.4-10.2) 01/07/17 06:15 Troponin I 0.300 ng/mL (0.000-0.034) H* 01/07/17 22:18 NT-Pro-B Natriuret Pep 88117 pg/mL 01/07/17 10:08 Urine Color Colorless 01/08/17 23:30 Urine Appearance Clear (Clear) 01/08/17 23:30 Urine pH 5.0 (5.0-8.0) 01/08/17 23:30 Ur Specific [place] 1.005 (1.001-1.035) 01/08/17 23:30 Urine Protein Trace (Negative) H 01/08/17 23:30 Urine Glucose (UA) Negative (Negative) 01/08/17 23:30 Urine Ketones Negative (Negative) 01/08/17 23:30 Urine Blood Negative (Negative) 01/08/17 23:30 Urine Nitrate Negative (Negative) 01/08/17 23:30 Urine Bilirubin Negative (Negative) 01/08/17 23:30 Urine Urobilinogen <2.0 mg/dL (<2.0) 01/08/17 23:30 Ur Leukocyte Esterase Negative (Negative) 01/08/17 23:30 Influenza Type A RNA Not Detected (Not Detectd) 01/07/17 07:00 Influenza Type B (PCR) Not Detected (Not Detectd) 01/07/17 07:00 Microbiology 01/06/17 22:10 Blood Blood Culture - Preliminary No Growth after 72 hours 01/06/17 21:54 Blood Blood Culture - Preliminary No Growth after 72 hours - Imaging and Cardiology Chest x-ray: report reviewed (Improved volume overload) Assessment and Plan (1) Diastolic CHF, acute on chronic Narrative/Plan: 71-year-old male presents to Hospital with shortness of breath. Find evidence of an acute on chronic diastolic congestive heart failure. With diuresis and treatment of this he is now feeling somewhat better. But not yet to baseline. Still has some shortness of breath. He has high-grade fever at admission has improved. Seems to be responding well to antibiotic therapy with daptomycin been receiving for the MRSA infection to his foot and the addition of gram- negative coverage with Fortaz. Cultures remain negative at this time. Fever has improved BNP is markedly elevated. Influenza testing was negative VQ scan was intermediate, pulmonary has evaluated and believes it's from his pneumonia. With his overall marked improvement likely be discharged tomorrow. We'll transition ceftazidime to complete 5 days of Levaquin at discharge. Status: Acute (2) MRSA (methicillin resistant Staphylococcus aureus) Status: Acute (3) Osteomyelitis Status: Acute (4) Fever Status: Acute (5) Pneumonia due to organism Status: Acute
[2017-01-10 16:56] LABS: Glucose,Whole Blood 130 mg/dL (75-99)
--- NOTE | 2017-01-10 17:12 | P.PN ---
Subjective This is a very pleasant 71-year-old gentleman with a history of diabetes mellitus, type II with evidence of Gopal grade for ulceration of the left foot. He also has a history of DVT, hypertension, hyperlipidemia, neuropathy, stage III kidney disease, MRSA, VRE both of the left foot. He has been treated in the wound Center for the same. He has undergone a left second and third toe amputation and partial amputation of the great toe. He was most recently seen by Dr. Franco in the wound Center for debridement and application of aqua cell Silver. He recently developed complaints of increasing shortness of breath, cough and congestion. He was initially seen and [facility] and eventually transferred here for further care. He is seen today in consultation. His chest x-ray reveals evidence of a right lower lobe infiltrate with small effusion. There is cardiomegaly and bilateral hilar prominence pamela pulmonary artery enlargement versus arterial hypertension. He has a left upper extremity PICC line in place. The d-dimer is 2.38. Creatinine 2.27 and were unable to obtain a CT angiogram. A VQ scan reveals intermediate probability for pulmonary embolism. He has been initiated on a heparin drip. Influenza screen is negative. Troponin 0.352. He has preserved left ventricular systolic function with estimated ejection fraction 50-55%. He is also been seen in consultation by Dr. Cowart who initiated daptomycin and ceftazidime. On 01/10/2017 the patient is being seen in follow-up. The patient is being treated for osteomyelitis with daptomycin for an underlying MRSA infection of the foot and possibly a gram-negative infection also. There is a concern also for an underlying pneumonia for which ceftazidime was added. Clinically the patient has no respiratory distress. No cough or sputum production. No chest tightness. No wheezing. No signs of any acute pneumonia this point. He is on room air oxygen. Patient's hemoglobin stable at 13.2. Objective - Vital Signs Vital signs: Vital Signs Temp 97.0 F L 01/10/17 16:00 Pulse 80 01/10/17 16:05 Resp 16 01/10/17 16:00 BP 115/64 01/10/17 16:00 Pulse Ox 95 01/10/17 16:00 Intake & Output 01/09/17 01/10/17 01/10/17 18:59 06:59 18:59 Intake Total 50 100 480 Output Total 450 650 375 Balance -400 -550 105 Weight 103.1 kg Intake: IV 100 cefTAZidime 2 gm In 100 Sodium Chloride 0.9% 100 ml @ 100 mls/hr IVPB Q12H [facility] Rx#:[id number] Oral 50 480 Output: Urine 450 650 375 Other: Voiding Method Toilet Toilet Urinal Urinal - Exam Head exam was generally normal. There was no scleral icterus or corneal arcus. Mucous membranes were moist.Neck was supple and without jugular venous distension, thyromegaly, or carotid bruits. Carotids were easily palpable bilaterally. There was no adenopathy.Lungs were clear to auscultation and percussion, and with normal diaphragmatic excursion. No wheezes or rales were noted. Cardiac exam revealed the PMI to be normally situated and sized. The rhythm was regular and no extrasystoles were noted during several minutes of auscultation. The first and second heart sounds were normal and physiologic splitting of the second heart sound was noted. There were no murmurs, rubs, clicks, or gallops.Abdominal exam revealed normal bowel sounds. The abdomen was soft, non-tender, and without masses, organomegaly, or appreciable enlargement of the abdominal aorta. Extremities shows no significant edema in the wound in the left lower extremity is been dressed and appropriate dressing has been applied which is currently dry clean and intact. - Labs CBC & Chem 7: 01/10/17 06:17 01/07/17 06:15 Labs: Abnormal Lab Results - Last 24 Hours (Table) 01/09/17 01/10/17 01/10/17 Range/Units 20:34 05:40 06:17 MCHC 30.4 L (31.0-37.0) g/dL Eosinophils # 0.8 H (0-0.7) k/uL POC Glucose (mg/dL) 235 H 128 H (75-99) mg/dL 01/10/17 01/10/17 Range/Units 11:46 16:40 MCHC (31.0-37.0) g/dL Eosinophils # (0-0.7) k/uL POC Glucose (mg/dL) 184 H 130 H (75-99) mg/dL Microbiology - Last 24 Hours (Table) 01/06/17 22:10 Blood Culture - Preliminary Blood No Growth after 72 hours 01/06/17 21:54 Blood Culture - Preliminary Blood No Growth after 72 hours Assessment and Plan Plan: Assessment 1 osteomyelitis with MRSA and possibly gram-negative infection for which the patient is on a combination of daptomycin and IV Fortaz 2 CHF with diastolic dysfunction and a preserved LV function with an ejection fraction of 50-55% 3 DVT, history of 4 diabetes mellitus type 2 5 diabetic peripheral neuropathy 6 nonhealing wounds of the toes of the left foot status post amputation of the second and the third toe with previous history of osteomyelitis being taken care of at the wound center 7 history of MRSA and VRE in the left foot 8 hypertension 9 hyperlipidemia 10 stage III chronic renal failure Plan Continue daptomycin. Continue Fortaz. Further recommendations on antibiotic coverage and duration per ID. Pulmonary status is very much stable at this point. The patient on room air oxygen. He is on 20 mg of oral Lasix twice a day. No signs of any respiratory distress at the time of my evaluation this morning.
[2017-01-10] MEDS: LEVOFLOXACIN 500 MG TAB PO SCH (17:29)
[2017-01-10 20:34] VITALS: RESP 18
[2017-01-10 21:19] LABS: Glucose,Whole Blood 280 mg/dL (75-99)
[2017-01-10] MEDS: ATORVASTATIN 10 MG TAB PO SCH (21:33)
[2017-01-11 06:22] LABS: Glucose,Whole Blood 141 mg/dL (75-99)
[2017-01-11 06:41] LABS: Basophils % (A) 1 %; CHCM 32.4; Eosinophils # (A) 0.6 k/uL (0-0.7); Eosinophils % (A) 9 %; HCT 36.1 % (39.0-53.0); HGB 11.3 gm/dL (13.0-17.5); Hypochromasia Slight; Luc # (Auto) 0.14; Luc % (Auto) 2; Lymphocytes # (A) 0.7 k/uL (1.0-4.8); Lymphocytes % (A) 10 %; MCH 26.3 pg (25.0-35.0); MCHC 31.3 g/dL (31.0-37.0); Mean Platelet Volume 10.2; Monocytes # (A) 0.5 k/uL (0-1.0); Monocytes % (A) 7 %; Neutrophils # (A) 5.2 k/uL (1.3-7.7); Neutrophils % (A) 72 %; RDW 15.3 % (11.5-15.5); WBC 7.2 k/uL (3.8-10.6)
[2017-01-11 06:46] LABS: Calcium 9.2 mg/dL (8.4-10.2); Potassium 4.8 mmol/L (3.5-5.1)
[2017-01-11 06:58] LABS: MCV 83.8 fL (80.0-100.0)
[2017-01-11] MEDS: PANTOPRAZOLE 40 MG TABLET PO SCH (07:26)
[2017-01-11] MEDS: INSULIN NPH/REG INSULIN 70/30 300 UNIT/3 ML VIAL SQ SCH ×2 (07:26→12:15)
[2017-01-11] MEDS: INSULIN LISPRO (humaLOG) 300 UNIT/3 ML VIAL SQ SCH ×2 (07:26→12:14)
[2017-01-11] MEDS: IPRATROPIUM-ALBUTEROL 3 ML NEB INHALATION SCH ×2 (07:59→11:39)
[2017-01-11] MEDS: cloNIDine HCL 0.2 MG TAB PO SCH (09:15)
[2017-01-11] MEDS: DAPTOmycin 500 MG in SODIUM CHLORIDE 0.9% 50 ML IV SCH (09:15)
[2017-01-11] MEDS: HEPARIN SODIUM,PORCINE 5,000 UNIT/ML 1 ML VIAL SQ SCH (09:15)
[2017-01-11] MEDS: FUROSEMIDE 20 MG TAB PO SCH (09:15)
[2017-01-11] MEDS: ASCORBIC ACID 500 MG TAB PO SCH (09:16)
[2017-01-11] MEDS: METOPROLOL TARTRATE 50 MG TAB PO SCH (09:16)
[2017-01-11] MEDS: LEVOFLOXACIN 500 MG TAB PO SCH (09:16)
[2017-01-11] MEDS: LOSARTAN 50 MG TAB PO SCH (09:17)
--- NOTE | 2017-01-11 10:49 | PN ---
DATE OF SERVICE: 01/10/2017 This is a 71-year-old gentleman who was admitted with CHF acute exacerbation and being closely monitored. No chest pain or palpitation, no fever. Patient also still on IV antibiotics. The cultures are going multiple organisms including the most recently MRSA. On exam, alert and oriented x3. Pulse 76, blood pressure 115/64, respirations 16, temperature 97 degrees, pulse ox 94% on room air. HEENT: Conjunctivae normal. NECK: No jugular venous distension. CARDIOVASCULAR: S1, S2, muffled. RESPIRATORY: Breath sounds diminished at the bases. A few scattered rhonchi, no crackles. Abdomen is soft, nontender. No mass palpable. EXTREMITIES: Legs osteomyelitis in the left foot. NERVOUS SYSTEM: No focal deficits. LABS: CBC noted, BMP is not available. ASSESSMENT: 1. Congestive heart failure acute exacerbation, with acute on chronic diastolic dysfunction, ejection fraction 50% to 55%. 2. Possible acute tracheobronchitis, troponin 0.36, rule out acute non-ST elevation myocardial infarction, indeterminate troponins. 3. Anemia, normocytic. 4. Acute on chronic diabetic ulcer stage IV, non-pressure type of the left foot secondary to acute osteomyelitis. 5. Increased creatinine with chronic kidney disease stage III. 6. Anemia, normocytic. 7. Increased d-dimer. Intermediate probability for pulmonary embolism on the V/Q scan. 8. Diabetes mellitus type 2. 9. History of deep venous thrombosis. 10. Hypertension. 11. Hyperlipidemia. 12. History of pulmonary nodules. 13. History of cataracts. 14. Diabetic retinopathy. 15. Right hearing loss. 16. History of vancomycin-resistant enterococcus as well as methicillin-resistant Staphylococcus aureus. 17. Polymicrobial wound infection previously. 18. Remote history of nicotine dependence. 19. FULL CODE. RECOMMENDATION: Recommend to continue with the symptomatic treatment, continue with current antibiotics. Will closely follow with Infectious Disease, Dr. Cowart. Otherwise, guarded prognosis because of multiple complex medical issues. Further recommendations to follow.
[2017-01-11 12:00] LABS: Glucose,Whole Blood 267 mg/dL (75-99)
[2017-01-11 13:20] VITALS: BP 140/78; PULSE 79; TEMP 98.4
--- NOTE | 2017-01-11 20:19 | P.PN ---
Subjective Principal diagnosis: Shortness of breath 71-year-old male who is followed wound healing center was recently hospitalized due to increasing difficulties with his left foot. In August 2016 he was having great difficulties with left foot second toe. Consequently on 08/31/2016 was taken to the operating room for the toe amputation. He has been followed in the wound healing center since that point in time. He's been treated with multiple interventions but continues to have nonhealing ulceration to that site. He was being treated with antibiotic therapy. Despite that he had some worsening. Consequently he was recently hospitalized 12/10/2016, culture showed change of pathogen to MRSA. Antibiotic therapy alter to daptomycin. . Continue following up in the wound healing Center, and is in need of hyperbaric oxygen therapy for limb salvage. Now presents with significant increasing shortness of breath. Also is having a fever of 102. Because of this he presented to the emergency center and has been admitted. His been seen by cardiology and he has been diagnosed with diastolic congestive heart failure and is receiving appropriate diuretic therapy at this time and antihypertensives. The patient however has become febrile. At the time of the consult influenza testing was requested back as negative. The patient is being followed in wound healing center as noted in receiving daptomycin therapy. However now developed a high-grade fever is noted to 102 with the significant shortness of breath. Appears to have congestive heart failure diastolic type. A VQ scan was performed and pulmonology believes he has pneumonia, is not likely to have pulmonary embolus. Patient is now markedly improved. Shortness of breath is better than his baseline as of late. Significant lower extremity edema has resolved. He is feeling increased strength is an looking going home today. His fever has resolved. Will complete 21 days daptomycin and levaquin follow in [facility] soon Objective - Vital Signs Vital signs: Vital Signs Temp 98.4 F 01/11/17 12:00 Pulse 79 01/11/17 12:00 Resp 18 01/11/17 12:00 BP 140/78 01/11/17 12:00 Pulse Ox 97 01/11/17 12:00 Intake & Output 01/11/17 01/11/17 01/12/17 06:59 18:59 06:59 Intake Total 300 370 Output Total 800 Balance -500 370 Weight 102.648 kg Intake: Oral 300 370 Output: Urine 800 Other: Voiding Method Toilet Toilet Urinal Urinal # Voids 1 - Labs CBC & Chem 7: 01/11/17 05:22 01/11/17 05:22 Labs: Abnormal Lab Results - Last 24 Hours (Table) 01/10/17 01/11/17 01/11/17 Range/Units 21:14 05:22 05:22 Hgb 11.3 L (13.0-17.5) gm/dL Hct 36.1 L (39.0-53.0) % Lymphocytes # 0.7 L (1.0-4.8) k/uL BUN 59 H (9-20) mg/dL Creatinine 3.10 H (0.66-1.25) mg/dL Glucose 114 H (74-99) mg/dL POC Glucose (mg/dL) 280 H (75-99) mg/dL 01/11/17 01/11/17 Range/Units 06:20 11:32 Hgb (13.0-17.5) gm/dL Hct (39.0-53.0) % Lymphocytes # (1.0-4.8) k/uL BUN (9-20) mg/dL Creatinine (0.66-1.25) mg/dL Glucose (74-99) mg/dL POC Glucose (mg/dL) 141 H 267 H (75-99) mg/dL Microbiology - Last 24 Hours (Table) 01/06/17 22:10 Blood Culture - Preliminary Blood No Growth after 96 hours 01/06/17 21:54 Blood Culture - Preliminary Blood No Growth after 96 hours Assessment and Plan (1) Diastolic CHF, acute on chronic Status: Acute (2) MRSA (methicillin resistant Staphylococcus aureus) Status: Acute (3) Osteomyelitis Status: Acute (4) Fever Status: Acute (5) Pneumonia due to organism Status: Acute
[2017-01-12] MEDS ORDERED: LEVOFLOXACIN 250 MG TAB PO SCH (09:00)
--- NOTE | 2017-01-12 11:56 | DS ---
DATE OF ADMISSION: 01/06/2017 DATE OF DISCHARGE: 01/11/2017 DATE OF SERVICE: 01/11/2017 FINAL DIAGNOSES: 1. Congestive heart failure, acute exacerbation with acute on chronic diastolic dysfunction, ejection fraction 50% to 55%. 2. Possible acute purulent tracheobronchitis. Possibly early bronchopneumonia. 3. Troponin 0.36, rule out acute non-ST segment elevation myocardial infarction, indeterminate troponins. 4. Anemia, normocytic. 5. Acute on chronic diabetic ulcer stage IV non-pressure type of the left foot secondary to acute osteomyelitis. 6. Increased creatinine with chronic kidney disease, stage III. 7. Increased D-dimer, intermediate probability for pulmonary embolism on the VQ scan probably caused by pneumonia or tracheobronchitis. 8. Diabetes mellitus type 2. 9. History of deep venous thrombosis. 10. Hypertension. 11. Hyperlipidemia. 12. History of pulmonary nodule. 13. History of cataracts. 14. History of diabetic retinopathy. 15. Right hearing loss. 16. History of vancomycin-resistant enterococcus as well as methicillin-resistant Staphylococcus aureus. 17. History of polymicrobial wound infection history. 18. Emote history of nicotine dependence. 19. FULL CODE. DISCHARGE DISPOSITION: The patient will be discharged in stable condition with guarded prognosis. Total time take 35 minutes. HISTORY OF PRESENT ILLNESS: This 71-year-old gentleman with a past medical history of multiple medical problems admitted with CHF acute exacerbation as well as tracheobronchitis, bronchopneumonia, elevated troponin, diabetic ulcer with osteomyelitis. The patient was treated in conjunction with multiple consultants including Cardiology and Pulmonology and as well as Infectious Disease. Care was coordinated. Fluid electrolyte balance was also done. On exam, vitals are stable. CARDIOVASCULAR SYSTEM: S1, S2 normal. RESPIRATORY: A few scattered rhonchi. ABDOMEN: Soft. NERVOUS SYSTEM: No focal deficits. DISCHARGE ADVICE: 1. Diet is cardiac. 2. Activity limited until followup. 3. Follow up with Dr. Jack De Jesus in 2 to 3 days. 4. Follow with Dr. Willard [facility] as advice. 5. Home care is being arranged. 6. PICC line care and continue with IV antibiotics. The medications at the time of discharge are: 1. Tylenol 650 q.6 p.r.n. 2. Vitamin C 500 mg p.o. t.i.d. 3. Lipitor 10 mg q.h.s. 4. Cubicin 500 mg IV daily for days per ID. 5. Lasix 20 mg p.o. b.i.d. 6. Novolin 70/30, 30 units a.c. t.i.d., changed dose. 7. Albuterol Atrovent updrafts q.i.d. and p.r.n. 8. Levaquin 500 p.o. daily for 5 days. 9. Cozaar 50 mg p.o. b.i.d. 10. Lopressor 100 mg p.o. b.i.d. 11. Catapres 0.2 mg p.o. b.i.d. Once again, the patient will be discharged in stable condition with guarded prognosis. MTDD
[2017-01-13] MEDS ORDERED: DAPTOmycin 500 MG in SODIUM CHLORIDE 0.9% 50 ML IV SCH (09:00)
== END 2017-01-11 16:38 | disposition home health service (06) | DRG 291 ==
LOC: 6SEL 17:35
PROVIDERS: ADMIT Internal Medicine; ATTEND Internal Medicine
DX: I13.0 Hypertensive heart and chronic kidney disease with heart failure and stage 1 through stage 4 chronic kidney disease, or unspecified chronic kidney disease (principal); I50.33 Acute on chronic diastolic (congestive) heart failure; J18.0 Bronchopneumonia, unspecified organism; M86.172 Other acute osteomyelitis, left ankle and foot; E11.22 Type 2 diabetes mellitus with diabetic chronic kidney disease; E11.42 Type 2 diabetes mellitus with diabetic polyneuropathy; N18.3 Chronic kidney disease, stage 3 (moderate); E11.621 Type 2 diabetes mellitus with foot ulcer; R56.9 Unspecified convulsions; E11.69 Type 2 diabetes mellitus with other specified complication; L97.529 Non-pressure chronic ulcer of other part of left foot with unspecified severity; E11.319 Type 2 diabetes mellitus with unspecified diabetic retinopathy without macular edema; E78.5 Hyperlipidemia, unspecified; D64.9 Anemia, unspecified; J20.9 Acute bronchitis, unspecified; R91.1 Solitary pulmonary nodule; H91.91 Unspecified hearing loss, right ear; B95.62 Methicillin resistant Staphylococcus aureus infection as the cause of diseases classified elsewhere; Z86.718 Personal history of other venous thrombosis and embolism; Z87.891 Personal history of nicotine dependence; Z82.49 Family history of ischemic heart disease and other diseases of the circulatory system; Z16.24 Resistance to multiple antibiotics; Z89.429 Acquired absence of other toe(s), unspecified side; Z79.4 Long term (current) use of insulin; Z79.899 Other long term (current) drug therapy
CPT/HCPCS: 71020; 78582; 80048; 81003; 83036; 83605; 83880; 84484; 85025; 85379; 85610; 85730; 87040; 87502; 93306; 94640; 97597

== ENCOUNTER 2017-02-17 15:32 | Inpatient (IN) | payer MEDICARE ==
[2017-02-17] MEDS ORDERED: hydrALAZINE HCL 50 MG TAB PO STA (16:46)
[2017-02-17 17:39] LABS: Calcium 9.6 mg/dL (8.4-10.2); Potassium 5.4 mmol/L (3.5-5.1)
--- NOTE | 2017-02-17 18:49 | XR ---
EXAMINATION TYPE: XR chest 2V DATE OF EXAM: 02/17/2017 6:18 PM COMPARISON: 01/10/2017 HISTORY: Hypertension TECHNIQUE: Frontal and lateral views of the chest are obtained. FINDINGS: Heart and mediastinum are normal. Lungs are clear of consolidation. There are no hilar mas ses. There is slight blunting of costophrenic angles. There are no hilar masses. The bony thorax is intact. IMPRESSION: There are new small bilateral pleural effusions compared to last exam. Normal heart. No heart failure seen.
--- NOTE | 2017-02-17 19:07 | ED ---
General Adult HPI - General Chief complaint: Recheck/Abnormal Lab/Rx Stated complaint: High BP Time Seen by Provider: 02/17/17 16:32 Source: patient Mode of arrival: wheelchair Limitations: no limitations - History of Present Illness Initial comments: Patient complains of not feeling well. He has some shaking episodes. He is also very hypertensive. He has no nausea or vomiting. He has no belly or back pain. He has had some chest pain. Denies any recent illnesses. He has had no sick contacts. He was getting hyperbaric therapy earlier today for a chronic wound infection. He has no neck pain or stiffness. He denies injuries. He has no trouble walking. - Related Data Home Medications Medication Instructions Recorded Confirmed Atorvastatin Calcium 10 mg PO HS 08/29/16 02/17/17 Metoprolol Tartrate [Lopressor] 100 mg PO BID 12/10/16 02/17/17 Moxifloxacin HCl 400 mg PO DAILY 02/11/17 02/17/17 Insulin NPH/Reg Insulin 70/30 25 unit SQ AC-TID 02/17/17 02/17/17 [humuLIN 70/30 VIAL] Losartan Potassium [Cozaar] 100 mg PO DAILY 02/17/17 02/17/17 cloNIDine HCL [Catapres] 0.1 mg PO BID 02/17/17 02/17/17 Allergies Allergy/AdvReac Type Severity Reaction Status Date / Time amlodipine Allergy Anaphylaxis Verified 02/17/17 16:51 lisinopril Allergy tongue Verified 02/17/17 16:51 swelling vancomycin Allergy Unknown Verified 02/17/17 16:51 Review of Systems ROS Statement: Those systems with pertinent positive or pertinent negative responses have been documented in the HPI. ROS Other: All systems not noted in ROS Statement are negative. Past Medical History Past Medical History: Diabetes Mellitus, Deep Vein Thrombosis (DVT), Hyperlipidemia, Hypertension Additional Past Medical History / Comment(s): per pt's xray noted lung nodules. 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 Past Anesthesia/Blood Transfusion Reactions: Postoperative Nausea & Vomiting ( PONV) Past Psychological History: No Psychological Hx Reported Additional Psychological History / Comment(s): , lives in the family home with his . 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 Has lived in [place] as well as [place]. He did spend 25 years and [place]. We're worked as a [employer]. 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 Moved back to this region so that he could be close to his 3 children. Relates he stopped smoking several years ago. He has no significant history of alcohol or recreational drug use. No international travel. No experience. No animal exposures Smoking Status: Former smoker Past Alcohol Use History: None Reported Past Drug Use History: None Reported - Past Family History Father Family Medical History: Deep Vein Thrombosis (DVT) Additional Family Medical History / Comment(s): had valve sx- a week later from complications Mother Family Medical History: Congestive Heart Failure (CHF) Additional Family Medical History / Comment(s): phlebitis General Exam Limitations: no limitations General appearance: alert, in no apparent distress Head exam: Present: atraumatic, normocephalic, normal inspection Eye exam: Present: normal appearance, PERRL, EOMI. Absent: scleral icterus, conjunctival injection, periorbital swelling ENT exam: Present: normal exam, mucous membranes moist Neck exam: Present: normal inspection. Absent: tenderness, meningismus, lymphadenopathy Respiratory exam: Present: normal lung sounds bilaterally. Absent: respiratory distress, wheezes, rales, rhonchi, stridor Cardiovascular Exam: Present: regular rate, normal rhythm, normal heart sounds. Absent: systolic murmur, diastolic murmur, rubs, gallop, clicks GI/Abdominal exam: Present: soft, normal bowel sounds. Absent: distended, tenderness, guarding, rebound, rigid Extremities exam: Present: normal inspection, full ROM, normal capillary refill. Absent: tenderness, pedal edema, joint swelling, calf tenderness Back exam: Present: normal inspection Neurological exam: Present: alert, oriented X3, CN II-XII intact Psychiatric exam: Present: normal affect, normal mood Skin exam: Present: warm, dry, intact, normal color. Absent: rash Course Vital Signs 02/17/17 02/17/17 02/17/17 15:55 17:30 18:12 Temperature 98.0 F 98.8 F Pulse Rate 73 84 Respiratory 18 16 Rate Blood Pressure 217/98 180/82 153/72 O2 Sat by Pulse 98 99 Oximetry Medical Decision Making - Medical Decision Making Patient complains of not feeling well. He does have a positive troponin. I am concerned that this constellation of symptoms is related to heart dysfunction. He does have a history of heart failure. I am starting IV heparin. Patient will be admitted to the hospital. - Lab Data Result diagrams: 02/17/17 17:10 Lab Results 02/17/17 02/17/17 Range/Units 17:10 17:10 Sodium 145 (137-145) mmol/L Potassium 5.4 H (3.5-5.1) mmol/L Chloride 111 H (98-107) mmol/L Carbon Dioxide 19 L (22-30) mmol/L Anion Gap 15 mmol/L BUN 45 H (9-20) mg/dL Creatinine 1.94 H (0.66-1.25) mg/dL Est GFR (MDRD) Af Amer 42 (>60 ml/min/1.73 sqM) Est GFR (MDRD) Non-Af 34 (>60 ml/min/1.73 sqM) Glucose 96 (74-99) mg/dL Calcium 9.6 (8.4-10.2) mg/dL Troponin I 0.068 H* (0.000-0.034) ng/mL Critical Care Time Critical Care Time: Yes Total Critical Care Time: 35 Disposition Clinical Impression: NSTEMI (non-ST elevated myocardial infarction) Disposition: ADMITTED IP TO THIS [facility] Condition: Fair Time of Disposition: 19:07
[2017-02-17] MEDS ORDERED: NALOXONE 0.4 MG/ML 1 ML VIAL IV PRN (19:08)
[2017-02-17] MEDS ORDERED: TEMAZEPAM 15 MG CAP PO PRN (19:08)
[2017-02-17] MEDS ORDERED: ONDANSETRON 4 MG/2 ML VIAL IVP PRN (19:08)
[2017-02-17] MEDS ORDERED: MORPHINE SULFATE 4 MG/ML SYRINGE IV PRN (19:08)
[2017-02-17] MEDS ORDERED: HEPARIN SODIUM,PORCINE/D5W PMX 25,000 UNIT in DEXTROSE/WATER 1 500ML.BAG IV SCH (19:15)
[2017-02-17] MEDS ORDERED: HEPARIN SODIUM,PORCINE 5,000 UNIT/ML 1 ML VIAL IV STA (19:53)
[2017-02-17] MEDS: FAMOTIDINE 20 MG TAB PO SCH (22:09)
[2017-02-17] MEDS: cloNIDine HCL 0.1 MG TAB PO SCH (22:09)
[2017-02-17 22:43] LABS: Glucose,Whole Blood 170 mg/dL (75-99)
[2017-02-17] MEDS: METOPROLOL TARTRATE 50 MG TAB PO SCH (22:43)
[2017-02-17] MEDS: INSULIN NPH/REG INSULIN 70/30 300 UNIT/3 ML VIAL SQ SCH (23:07)
[2017-02-17] MEDS: ATORVASTATIN 10 MG TAB PO SCH (23:08)
[2017-02-18 02:20] LABS: Anisocytosis Slight; CH 27.2; CHCM 32.3; HCT 32.9 % (39.0-53.0); HDW 3.27; HGB 10.4 gm/dL (13.0-17.5); MCH 26.8 pg (25.0-35.0); MCHC 31.6 g/dL (31.0-37.0); MCV 84.8 fL (80.0-100.0); Mean Platelet Volume 8.5; RBC 3.88 m/uL (4.30-5.90); RDW 16.9 % (11.5-15.5); WBC 4.4 k/uL (3.8-10.6); WBC (Perox) 4.83
[2017-02-18 02:50] LABS: Add Differential Manual Differential
[2017-02-18 02:52] LABS: Manual Review Performed; Nucleated Red Blood Cells 0 /100 WBC (0-0); Total Cells Counted 100
[2017-02-18] MEDS ORDERED: HEPARIN SODIUM,PORCINE 5,000 UNIT/ML 1 ML VIAL IV PRN (03:00)
[2017-02-18 05:49] LABS: Glucose,Whole Blood 87 mg/dL (75-99)
[2017-02-18] MEDS ORDERED: REGADENOSON 0.4 MG/5 ML SYRINGE IV ONE (09:37)
[2017-02-18] MEDS ORDERED: AMINOPHYLLINE 500 MG/20 ML VIAL IV PRN (09:37)
--- NOTE | 2017-02-18 10:05 | CONS ---
DATE OF CONSULTATION: CHIEF COMPLAINT: Uncontrolled hypertension. Vladimir is a 71-year-old gentleman who was actually in the hyperbaric chamber because of chronic nonhealing ulcer of the left foot and while he was there had severely elevated blood pressures due to which he was sent to the emergency room from where he got admitted. He denies chest pain, difficulty in breathing, palpitations or syncope. His EKG shows sinus rhythm with extensive ST-T wave changes probably related to left ventricular hypertrophy and the EKG changes have remained unchanged compared to baseline EKG. Patient never had any cardiac workup in the past. Three sets of troponins have come back elevated at 0.06, 0.05, 0.06, but he has renal insufficiency with a BUN of 45 and creatinine of 1.9. I believe the troponin elevation is related to renal failure and the EKG changes are related to hypertension. Past medical history is significant for insulin-requiring diabetes, hypertension, and dyslipidemia. Medications include atorvastatin 10 mg daily, insulin, losartan, metoprolol 100 b.i.d., Catapres 0.1 b.i.d. Allergies to AMLODIPINE, LISINOPRIL and VANCOMYCIN. Family history is negative for premature coronary artery disease. Social history is negative for smoking, EtOH abuse, or drug abuse. REVIEW OF SYSTEMS: HEENT: Unremarkable. CARDIAC: As described above. RESPIRATORY: Negative. GI: Negative. GENITOURINARY: Negative. ALLERGY/IMMUNOLOGY: Negative. MUSCULOSKELETAL: Significant for arthritis. PSYCHOSOCIAL: Negative. ENDOCRINE: Negative. HEMATOLOGIC: Negative. DERMATOLOGY: Negative. CONSTITUTIONAL: Negative. ONCOLOGICAL: Negative. MUSCULOSKELETAL: Significant for nonhealing ulcer. The rest of the system review is not relevant. On exam, patient is afebrile, heart rate is 68. Blood pressure is 147/81. Respiratory rate is 18. There is no jugular venous distention. Carotid upstroke is normal. There is no bruit. Chest exam reveals good air entry bilaterally. Heart exam reveals first and second heart sounds. No gallop. Has a systolic murmur at the left lower sternal border. Abdomen soft. Exam of the extremities did not reveal edema. Peripheral pulses are palpable. He has extensive varicose ( ) over the right leg. Left leg has chronic nonhealing ulcer involving left foot. Distal pulses are diminished. Labs show that the potassium is 5.4. Creatinine is 1.9. BUN is 45. Three sets of tropes are elevated, but there is no definite pattern to them. EKG changes are related to left ventricular hypertrophy. ASSESSMENT: 1. Elevated troponins probably secondary to renal failure. 2. Chronic renal insufficiency. 3. Severe uncontrolled hypertension. 4. Nonhealing ulcer. PLAN: I am going to stop the IV heparin, obtain a 2-D echo to evaluate his LV function and schedule him for a Lexiscan. If he has ischemia, we first have to stabilize his renal function before we do invasive angiography.
--- NOTE | 2017-02-18 12:57 | EST ---
DATE OF SERVICE: 02/18/2017 AGE: 71Y SEX: M HT: 6'3" WT: 220 lbs. Protocol Joel: Other: Lexiscan Cardiolite Stage: Dur. of Exercise: *Heart Rate Blood Pressure *Rest: 61 Rest: 146/94 * *Max. Achieved: 89 Maximum BP: 181/97 85% PMHR: 100% PMHR: *METS: INDICATIONS: Chest pain. MEDICATIONS: Baseline rhythm is sinus mechanism, rate of 61, normal axis, normal intervals, nonspecific ST-T wave changes, rare PACs. Baseline blood pressure 146/94 mmHg. Patient received an injection of Lexiscan. Electrocardiograph monitoring revealed no evidence of diagnostic ischemic ST deviation. Cardiolite was injected per protocol. CONCLUSION: 1. Nondiagnostic electrocardiograph stress testing. 2. Nuclear images will be reported separately.
[2017-02-18 14:01] LABS: Glucose,Whole Blood 92 mg/dL (75-99)
--- NOTE | 2017-02-18 14:26 | NM ---
EXAMINATION TYPE: NM stress lexiscan cardiolite DATE OF EXAM: 02/18/2017 1:49 PM COMPARISON: Chest x-ray 17 February 2017 HISTORY: Chest pain TECHNIQUE: After the intravenous administration of 11 mCi Tc 99m Sestamibi - Cardiolite resting SPEC T images acquired 65 minutes post injection. The patient received 0.4mg Lexiscan, 25.2 mCi Tc 99m Sestamibi - Stress images obtained [address] injection FINDINGS: Review of stress and rest SPECT images demonstrates decreased radio pharmaceutical uptake along the i nferolateral left ventricular myocardium on stress and rest images. Some decreased uptake in the paul infarct location along the inferior wall, inferolateral region towards the apex on stress imaging as compared to rest imaging. Gated analysis shows normal wall motion with an estimated left ventricular ejection fraction of 42 %. IMPRESSION: Pharmacologically induced left ventricular myocardial ischemia. Evidence of old infarct.
[2017-02-18] MEDS: INSULIN NPH/REG INSULIN 70/30 300 UNIT/3 ML VIAL SQ SCH ×3 (14:44→21:21)
[2017-02-18] MEDS: LEVOFLOXACIN 750 MG TAB PO SCH (15:00)
[2017-02-18] MEDS: METOPROLOL TARTRATE 50 MG TAB PO SCH ×2 (15:00→21:28)
[2017-02-18] MEDS: LOSARTAN 50 MG TAB PO SCH (15:00)
[2017-02-18] MEDS: cloNIDine HCL 0.1 MG TAB PO SCH ×2 (15:00→21:29)
[2017-02-18 16:50] LABS: Glucose,Whole Blood 167 mg/dL (75-99)
--- NOTE | 2017-02-18 19:18 | HP ---
DATE OF ADMISSION: 02/18/2017 PRESENTING COMPLAINT: Not feeling well. HISTORY OF PRESENTING COMPLAINT: This is a very pleasant 71-year-old patient whose chronic stable medical conditions include diabetes mellitus causing neuropathy and retinopathy, hypertension, hyperlipidemia, and chronic kidney disease, congestive heart failure from diastolic dysfunction and patient is also being treated for left foot wound osteomyelitis. Patient does go to the [facility]. Being followed by Dr. Franco and Dr. Cowart. The patient has been followed in the [facility]. Patient yesterday also finished his treatment. Blood pressure was running really high and patient was sent down to the ER. Denied any obvious chest pain, just felt jittery. There was concern of weakness being a cardiac cause and he was admitted to the cardiac floor. REVIEW OF SYSTEMS: CONSTITUTIONAL: Tired. HEENT: None. RESPIRATORY: None. CARDIOVASCULAR: No obvious chest pain. GASTROINTESTINAL: None. GENITOURINARY: None. MUSCULOSKELETAL: Pain in the joints. DERMATOLOGICAL: Left foot wound. LYMPHATICS: None. PSYCHIATRY: None. NEUROLOGICAL: Peripheral numbness and tingling. PAST MEDICAL HISTORY: Diabetes mellitus type 2, bilateral deep venous thrombosis, hypertension, hyperlipidemia, chronic kidney disease stage III, peripheral neuropathy, peripheral artery disease, left foot wound with osteomyelitis, peripheral artery disease. 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 Peripheral bypass in both the legs, bilateral knee surgery. SOCIAL HISTORY: . 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 Stopped smoking many years ago. No significant alcohol use. FAMILY HISTORY: DVT. HOME MEDICATIONS: 1. Catapres 0.100 mg p.o. b.i.d. 2. Moxifloxacin 400 mg p.o. daily. 3. Lopressor 100 mg p.o. b.i.d. 4. Cozaar 100 mg p.o. daily. 5. Humulin 70/30 25 units a.c. t.i.d. 6. Atorvastatin 10 mg p.o. q.h.s. ALLERGIES TO AMLODIPINE, LISINOPRIL, VANCOMYCIN. On examination, vital signs on presentation: Temperature 98, pulse 73, respirations 18, blood pressure 217/98, pulse ox 98% on room air. GENERAL APPEARANCE: Tall, average built, sitting up, not in distress. EYES: Pupils equal. Conjunctivae normal. HEENT: Oral cavity normal. NECK: JVD not raised. Mass not palpable. RESPIRATORY: Effort normal. Lungs are clear. CARDIOVASCULAR: First and second sounds normal. No edema. ABDOMEN: Soft, nontender. Liver and spleen not palpable. LYMPHATIC: No lymph node palpable in the neck or axillae. PSYCHIATRY: Alert and oriented x3. Mood is normal. NEUROLOGICAL: Pupils equal. Cranial nerves grossly intact. Decreased sensation distally. Left foot wounds, more details in the chart. INVESTIGATIONS: Potassium 5.4. BUN 45, creatinine 1.94, troponin 0.068. ASSESSMENT: 1. Accelerated hypertension with a cardiac cause. There may have been a bit of chest pain earlier. Stress test was ordered. 2. Diabetes mellitus type 2, chronically on insulin, causing neuropathy and retinopathy. 3. Essential hypertension, uncontrolled, present on admission. 4. Hyperlipidemia. 5. Chronic kidney disease, stage III from diabetic nephropathy and hypertensive nephrosclerosis. 6. Chronic congestive heart failure from diastolic dysfunction from underlying essential hypertension. 7. Peripheral artery disease. 8. Chronic left foot wound with osteomyelitis being followed at wound chamber in the hyperbaric chamber. PLAN: Cardiology was consulted, who ordered a stress test. Patient's home medications will be continued. Accu-Cheks will be followed. We will consult Dr. Cowart to whom the patient is known. Care was discussed with the patient.
[2017-02-18 20:47] LABS: Glucose,Whole Blood 179 mg/dL (75-99)
[2017-02-18] MEDS: FAMOTIDINE 20 MG TAB PO SCH (21:28)
[2017-02-18] MEDS: ATORVASTATIN 10 MG TAB PO SCH (21:28)
[2017-02-19 05:53] LABS: Glucose,Whole Blood 103 mg/dL (75-99)
[2017-02-19 10:52] LABS: Calcium 9.8 mg/dL (8.4-10.2); Potassium 5.9 mmol/L (3.5-5.1)
[2017-02-19] MEDS: INSULIN NPH/REG INSULIN 70/30 300 UNIT/3 ML VIAL SQ SCH ×3 (11:03→17:05)
[2017-02-19] MEDS: ASPIRIN 81 MG CHEW PO SCH (11:07)
[2017-02-19] MEDS: LOSARTAN 50 MG TAB PO SCH (11:08)
[2017-02-19] MEDS: METOPROLOL TARTRATE 50 MG TAB PO SCH ×2 (11:08→21:31)
[2017-02-19] MEDS: cloNIDine HCL 0.1 MG TAB PO SCH ×2 (11:08→21:31)
[2017-02-19 11:31] LABS: Glucose,Whole Blood 126 mg/dL (75-99)
--- NOTE | 2017-02-19 14:25 | P.PN ---
Subjective Principal diagnosis: Abnormal troponins This is a 71-year-old gentleman with known history of hypertension, diabetes, hyperlipidemia, who was in the high [facility] chamber receiving treatment for a nonhealing ulcer to the left foot, while they're patient was noted to have a significantly elevated blood pressure and for this reason was sent to the emergency room for further evaluation. Patient was noted to have mildly abnormal troponins which could be secondary to abnormal renal function. Patient underwent a stress test, nuclear portion suggested pharmacologically induced left ventricular myocardial ischemia. Patient denies at any point in time having any chest discomfort or difficulty in breathing. Creatinine today is 1.8. Because of abnormal renal function, cardiac catheterization at this time will be deferred. We will check the creatinine in the morning. Further recommendations then will be made. Objective - Vital Signs Vital signs: Vital Signs Temp 97.6 F 02/19/17 11:29 Pulse 77 02/19/17 11:29 Resp 16 02/19/17 11:29 BP 164/82 02/19/17 11:29 Pulse Ox 100 02/19/17 11:29 Intake & Output 02/18/17 02/19/17 02/19/17 18:59 06:59 18:59 Intake Total 640 180 100 Output Total 350 Balance 290 180 100 Weight 106.1 kg 104 kg Intake: IV 400 180 0.9 @20mls/hr 200 180 Heparin Sodium,Porcine/ 200 D5w Pmx 25,000 unit In Dextrose/Water 1 500ml. bag @ 10.03 UNITS/KG/HR 20.01 mls/hr IV .Q24H [facility] Rx#:[id number] Oral 240 100 Output: Urine 350 Other: Voiding Method Toilet Toilet # Voids 1 1 - Exam PHYSICAL EXAMINATION: HEENT: Head is atraumatic, normocephalic. Pupils equal, round. Neck is supple. There is no elevated jugular venous pressure. HEART EXAMINATION: Heart S1, S2 normal. No murmur or gallop heard. CHEST EXAMINATION: Lungs are clear to auscultation and precussion. No chest wall tenderness is noted on palpation or with deep breathing. ABDOMEN: Soft, nontender. Bowel sounds are heard. No organomegaly noted. EXTREMITIES: 2+ peripheral pulses with no evidence of peripheral edema and no calf tenderness noted. Dressing in place to the right foot. NEUROLOGIC patient is awake, alert and oriented -3. . - Labs CBC & Chem 7: 02/18/17 02:04 02/19/17 10:11 Labs: Abnormal Lab Results - Last 24 Hours (Table) 02/18/17 02/18/17 02/19/17 Range/Units 16:38 20:45 05:52 Potassium (3.5-5.1) mmol/L Chloride (98-107) mmol/L Carbon Dioxide (22-30) mmol/L BUN (9-20) mg/dL Creatinine (0.66-1.25) mg/dL Glucose (74-99) mg/dL POC Glucose (mg/dL) 167 H 179 H 103 H (75-99) mg/dL 02/19/17 02/19/17 Range/Units 10:11 11:29 Potassium 5.9 H (3.5-5.1) mmol/L Chloride 111 H (98-107) mmol/L Carbon Dioxide 19 L (22-30) mmol/L BUN 35 H (9-20) mg/dL Creatinine 1.81 H (0.66-1.25) mg/dL Glucose 120 H (74-99) mg/dL POC Glucose (mg/dL) 126 H (75-99) mg/dL Assessment and Plan (1) Elevated troponin Status: Acute (2) Renal failure, acute on chronic Status: Acute (3) Diabetes Status: Acute (4) Diabetic foot ulcer Status: Acute (5) HTN (hypertension) Status: Acute (6) Hyperlipemia Status: Acute (7) MRSA (methicillin resistant Staphylococcus aureus) Status: Acute (8) Osteomyelitis Status: Acute Plan: From cardiology's perspective, we'll check lytes BUN and creatinine in the morning. Patient is not experiencing any chest discomfort or difficulty in breathing. It was explained to the patient in detail by Dr. Astudillo that we would continue medical therapy at this time, proceed with cardiac catheterization once his creatinine is improved. DNP note has been reviewed, I agree with a documented findings and plan of care. Patient was seen and examined.
[2017-02-19 14:53] LABS: Hemoglobin A1C 7.6 % (4.2-6.1)
[2017-02-19 15:39] LABS: INR 1.1 (<1.1); Prothrombin Time 11.3 sec (9.0-12.0)
[2017-02-19 16:51] LABS: Glucose,Whole Blood 162 mg/dL (75-99)
--- NOTE | 2017-02-19 17:52 | PN ---
I am covering for Dr. Crockett. HISTORY OF PRESENT ILLNESS: This 71-year-old gentleman admitted with not feeling well, also accelerated hypertension. The patient also had some chest pain per chart. Cardiology was following the patient, was tentatively planning cardiac catheterization. Lexiscan stress test was done, which showed decreased pharmaceutical uptake along inferolateral areas. The patient is also had renal failure. The patient also had history of congestive heart failure as well. The patient is closely monitored at this time. PAST MEDICAL HISTORY: Reviewed. REVIEW OF SYSTEMS: CARDIOVASCULAR: No angina. RESPIRATORY: As mentioned earlier. GI: As mentioned earlier. : No dysuria. NERVOUS SYSTEM: No numbness or weakness. The current medications are reviewed and include: 1. Aspirin 81 mg. 2. Lipitor 40 mg q.h.s. 3. Catapres 0.1 b.i.d. 4. Pepcid 20 mg a.c. and at bedtime. 5. Humulin 70/30 25 units a.c. t.i.d. 6. Levaquin 750 q.48 hours. 7. Cozaar 100 mg p.o. daily. 8. Lopressor 50 mg p.o. b.i.d. 9. Morphine sulfate 4 mg p.r.n. 10. Narcan p.r.n. 11. Zofran 4 mg q.8 p.r.n. 12. Zestril 50 mg q.h.s. p.r.n. PHYSICAL EXAMINATION: Patient is alert, oriented x3. Pulse is 56, blood pressure 141/72, respirations 16, temperature 97.6, pulse ox 100% on room air. HEENT: Conjunctivae normal. NECK: No jugular venous distention. CARDIOVASCULAR: S1 and S2, muffled. RESPIRATORY: Breath sounds diminished at the bases. A few scattered rhonchi and crackles. ABDOMEN: Soft, nontender. No mass palpable. LEGS: No edema, no swelling. NERVOUS SYSTEM: No focal deficits. LABS: Potassium 5.9, creatinine 1.81. Troponin 0.0069. ASSESSMENT: 1. Accelerated hypertension. 2. Diabetes mellitus type 2, on insulin. 3. Essential hypertension, uncontrolled, possible hypertensive urgency. 4. Hyperlipidemia. 5. Chronic kidney disease stage III. 6. Diabetic nephropathy and hypertensive nephrosclerosis. 7. Chronic congestive heart failure with chronic diastolic dysfunction. Ejection fraction 50 to 55%. 8. Peripheral arterial disease. 9. Chronic left wound with osteomyelitis, being followed at [facility] and hyperbaric chamber. 10. History of recent tracheobronchitis. 11. Diabetic ulcer stage IV left foot. 12. History of diabetic retinopathy. 13. History of pulmonary nodule. 14. History of cataracts. 15. History of hearing loss. 16. History of vancomycin-resistant enterococcus and methicillin-resistant Staphylococcus aureus. 17. History of polymicrobial wound. 18. FULL CODE. 19. Hyperkalemia. RECOMMENDATIONS AND DISCUSSION: In this 71-year-old gentleman with a past medical history of multiple medical problems admitted with features of accelerated hypertension, elevated troponin. The patient also had indeterminate stress also. Closely follow with Cardiology. Recommend repeat labs. Continue to monitor. Avoid AARON inhibitors and potassium supplementation. Guarded prognosis because multiple complex medical issues. Discussed with the patient who understands. Further recommendations to follow.
--- NOTE | 2017-02-19 19:07 | P.CONS ---
History of Present Illness - Reason for Consult Consult date: 02/19/17 - Chief Complaint Hypertension - History of Present Illness Pleasant 71-year-old male well-known to service because of his care in the wound healing Center for his complex left diabetic foot infection. The recently hospitalized for about a congestive heart failure. He was improving and doing somewhat better. However developed a bout of accelerated hypertension and was hospitalized. Workup has ensued and is now been seen by cardiology and there is evidence of prior myocardial infarction and evidence of some ischemic change on his stress test. The patient is having worsening of his baseline chronic kidney disease and cardiac catheterization is on hold at this point in time until there is improvement of his renal status. Request for wound care and further input at this time. Patient is feeling considerably better than before. When he has hypertension he relates that he was not having any chest pain at all when he was feeling a bit poorly. This is now resolved. [place] to going home soon. Review of Systems Constitutional: Reports chills, Reports fever, Reports sweats Eyes: denies blurred vision, denies pain Ears, nose, mouth and throat: Denies headache, Denies sore throat Cardiovascular: Reports orthopnea, Reports shortness of breath only with exertion, Denies chest pain Respiratory: Reports cough, Reports dyspnea, Denies cough with sputum, Denies excessive sputum, Denies hemoptysis, Denies home oxygen Gastrointestinal: Denies abdominal pain, Denies diarrhea, Denies nausea, Denies vomiting Genitourinary: Denies dysuria, Denies hematuria, Denies urinary frequency Musculoskeletal: Denies myalgias Integumentary: Reports wounds, Denies pruritus, Denies rash Neurological: Denies numbness, Denies weakness Psychiatric: Denies anxiety, Denies depression Endocrine: Denies fatigue, Denies weight change Past Medical History Past Medical History: Heart Failure, Diabetes Mellitus, Deep Vein Thrombosis ( DVT), Hyperlipidemia, Hypertension Additional Past Medical History / Comment(s): per pt's "xray noted lung nodules". 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 tumor removed from bladder, L foot gr toe, 3rd &2nd toe amputated; Rfoot 3rd toe amputated, Bypass in Bilat legs, eulogio knee sx(cartilage), lt arm picc line. Past Anesthesia/Blood Transfusion Reactions: Postoperative Nausea & Vomiting ( PONV) Past Psychological History: No Psychological Hx Reported Additional Psychological History / Comment(s): , lives in a single level home with his , no pets.has a w/c at home if needed. has visiting nurses and goes to [facility] 5 days a week for bariatric tx. no service. Has lived in [place] as well as [place]. He did spend 25 years and [place]. We're worked as a [employer]. 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 Moved back to this region so that he could be close to his 3 children. Relates he stopped smoking several years ago. He has no significant history of alcohol or recreational drug use. No international travel. No experience. No animal exposures Smoking Status: Never smoker Past Alcohol Use History: None Reported Past Drug Use History: None Reported - Past Family History Father Family Medical History: Deep Vein Thrombosis (DVT) Additional Family Medical History / Comment(s): had valve sx- a week later from complications Mother Family Medical History: Congestive Heart Failure (CHF) Additional Family Medical History / Comment(s): phlebitis Medications and Allergies Home Medications and Allergies Comment(s): Current Medications Aspirin (Aspirin) 81 mg PO DAILY [facility] Last Admin: 02/19/17 11:07 Dose: 81 mg Atorvastatin Calcium (Lipitor) 40 mg PO [facility] Clonidine (Catapres) 0.1 mg PO BID [facility] Last Admin: 02/19/17 11:08 Dose: 0.1 mg Famotidine (Pepcid) 20 mg PO HS [facility] Last Admin: 02/18/17 21:28 Dose: 20 mg Heparin Sodium (Porcine) (Heparin) 5,000 unit SQ Q12HR [facility] Insulin Human Isoph/Insulin Regular (Humulin 70/30 Vial) 25 unit SQ AC-TID [facility] Last Admin: 02/19/17 17:05 Dose: 25 unit Levofloxacin (Levaquin) 750 mg PO Q48H [facility] Stop: 02/21/17 09:01 Last Admin: 02/18/17 15:00 Dose: 750 mg Metoprolol Tartrate (Lopressor) 100 mg PO BID [facility] Last Admin: 02/19/17 11:08 Dose: 100 mg Morphine Sulfate (Morphine Sulfate (Inj)) 4 mg IV Q4HR PRN PRN Reason: Severe Pain Naloxone HCl (Narcan) 0.2 mg IV Q2M PRN PRN Reason: Opioid Reversal Ondansetron HCl (Zofran) 4 mg IVP Q8HR PRN PRN Reason: Nausea And Vomiting Temazepam (Restoril) 15 mg PO HS PRN PRN Reason: Insomnia Home Medications Medication Instructions Recorded Confirmed Type Atorvastatin Calcium 10 mg PO HS 08/29/16 02/17/17 History Metoprolol Tartrate [Lopressor] 100 mg PO BID 12/10/16 02/17/17 History Moxifloxacin HCl 400 mg PO DAILY 02/11/17 02/17/17 History Insulin NPH/Reg Insulin 70/30 25 unit SQ AC-TID 02/17/17 02/17/17 History [humuLIN 70/30 VIAL] Losartan Potassium [Cozaar] 100 mg PO DAILY 02/17/17 02/17/17 History cloNIDine HCL [Catapres] 0.1 mg PO BID 02/17/17 02/17/17 History Allergies Allergy/AdvReac Type Severity Reaction Status Date / Time amlodipine Allergy Anaphylaxis Verified 02/17/17 16:51 lisinopril Allergy tongue Verified 02/17/17 16:51 swelling vancomycin Allergy Unknown Verified 02/17/17 16:51 Physical Exam Vitals: Vital Signs Temp Pulse Pulse Resp BP BP Pulse Ox 02/19/17 14:41 97.6 F 56 L 77 16 141/72 100 02/19/17 11:29 97.6 F 60 77 16 164/82 100 02/19/17 08:00 97.8 F 62 77 16 148/73 99 02/19/17 04:00 97.1 F L 67 16 144/89 98 02/19/17 00:00 97.1 F L 71 16 150/97 99 02/18/17 20:00 97.1 F L 66 16 176/81 96 Intake and Output 02/19/17 02/19/17 02/19/17 06:59 14:59 22:59 Intake Total 160 260 120 Balance 160 260 120 Intake: IV 160 160 0.9 @20mls/hr 160 160 Oral 100 120 Other: Voiding Method Toilet Toilet # Voids 1 Weight 104 kg Gen: This is a 71-year-old male. He is sitting up in bed and appears to be in no acute distress. No respiratory distress noted at rest. HEENT: Head is atraumatic, normocephalic. Pupils equal, round. Sclerae is anicteric. NECK: Supple. No JVD. No lymphadenopathy. No thyromegaly. LUNGS: Diminished to the bases. Clear to auscultation. No wheezes or rhonchi. No intercostal retractions. HEART: Regular rate and rhythm. No murmur. ABDOMEN: Soft. Bowel sounds are present. No masses. No tenderness. EXTREMITIES: Dorsalis pedis is palpable bilaterally. Patient has noted amputation on the right foot that is old and healed. Patient has amputation of the great toe and third toe oh which wounds are healed. There is a wound to the amputation site on the second toe and on the lateral metatarsal. Please see the nursing photography for measurements NEUROLOGICAL: Patient is awake, alert and oriented x3. No gross focal sensory motor deficits are noted Results CBC & Chem 7: 02/18/17 02:04 02/19/17 10:11 Labs: Abnormal Lab Results - Last 24 Hours (Table) 02/18/17 02/18/17 02/19/17 Range/Units 02:04 20:45 05:52 Potassium (3.5-5.1) mmol/L Chloride (98-107) mmol/L Carbon Dioxide (22-30) mmol/L BUN (9-20) mg/dL Creatinine (0.66-1.25) mg/dL Glucose (74-99) mg/dL POC Glucose (mg/dL) 179 H 103 H (75-99) mg/dL Hemoglobin A1c 7.6 H (4.2-6.1) % 02/19/17 02/19/17 02/19/17 Range/Units 10:11 11:29 16:47 Potassium 5.9 H (3.5-5.1) mmol/L Chloride 111 H (98-107) mmol/L Carbon Dioxide 19 L (22-30) mmol/L BUN 35 H (9-20) mg/dL Creatinine 1.81 H (0.66-1.25) mg/dL Glucose 120 H (74-99) mg/dL POC Glucose (mg/dL) 126 H 162 H (75-99) mg/dL Hemoglobin A1c (4.2-6.1) % Laboratory Results WBC 4.4 k/uL (3.8-10.6) 02/18/17 02:04 RBC 3.88 m/uL (4.30-5.90) L 02/18/17 02:04 Hgb 10.4 gm/dL (13.0-17.5) L 02/18/17 02:04 Hct 32.9 % (39.0-53.0) L 02/18/17 02:04 MCV 84.8 fL (80.0-100.0) 02/18/17 02:04 MCH 26.8 pg (25.0-35.0) 02/18/17 02:04 MCHC 31.6 g/dL (31.0-37.0) 02/18/17 02:04 RDW 16.9 % (11.5-15.5) H 02/18/17 02:04 Plt Count 213 k/uL (150-450) 02/18/17 02:04 Neutrophils % (Manual) 68.0 % 02/18/17 02:04 Lymphocytes % (Manual) 17.0 % 02/18/17 02:04 Monocytes % (Manual) 14.0 % 02/18/17 02:04 Eosinophils % (Manual) 1.0 % 02/18/17 02:04 Neutrophils # (Manual) 3.0 k/uL (1.3-7.7) 02/18/17 02:04 Lymphocytes # (Manual) 0.7 k/uL (1.0-4.8) L 02/18/17 02:04 Monocytes # (Manual) 0.6 k/uL (0-1.0) 02/18/17 02:04 Eosinophils # (Manual) 0.0 k/uL (0-0.7) 02/18/17 02:04 Nucleated RBCs 0 /100 WBC (0-0) 02/18/17 02:04 Manual Slide Review Performed 02/18/17 02:04 Anisocytosis Slight 02/18/17 02:04 PT 11.3 sec (9.0-12.0) 02/19/17 15:20 INR 1.1 (<1.1) 02/19/17 15:20 APTT 32.3 sec (22.0-30.0) H 02/18/17 02:04 Sodium 141 mmol/L (137-145) 02/19/17 10:11 Potassium 5.9 mmol/L (3.5-5.1) H 02/19/17 10:11 Chloride 111 mmol/L (98-107) H 02/19/17 10:11 Carbon Dioxide 19 mmol/L (22-30) L 02/19/17 10:11 Anion Gap 11 mmol/L 02/19/17 10:11 BUN 35 mg/dL (9-20) H 02/19/17 10:11 Creatinine 1.81 mg/dL (0.66-1.25) H 02/19/17 10:11 Est GFR (MDRD) Af Amer 45 (>60 ml/min/1.73 sqM) 02/19/17 10:11 Est GFR (MDRD) Non-Af 37 (>60 ml/min/1.73 sqM) 02/19/17 10:11 Glucose 120 mg/dL (74-99) H 02/19/17 10:11 POC Glucose (mg/dL) 162 mg/dL (75-99) H 02/19/17 16:47 POC Glu [employer] Buzz Xiao 02/19/17 16:[address] Glu mg/dL 171 mg/dL 02/18/17 02:04 Hemoglobin A1c 7.6 % (4.2-6.1) H 02/18/17 02:04 Calcium 9.8 mg/dL (8.4-10.2) 02/19/17 10:11 Troponin I 0.069 ng/mL (0.000-0.034) H* 02/18/17 05:31 Lexiscan test shows evidence of some reversible ischemic changes left ventricle Assessment and Plan (1) Renal failure, acute on chronic Status: Acute (2) 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 At admission there was concerns to myocardial infarction and workup has been done. There is evidence of some prior myocardial damage by his Lexiscan test. Cardiology is following however with his acute on chronic renal failure will not be proceeding with cardiac catheterization at this point in time. Goal is to have him have some outpatient treatment and his creatinine improves then do an outpatient cardiac cath and possibly stenting. The patient is quite asymptomatic at this time. His blood pressure is better controlled He is denying any other new symptoms. Silver dressing is requested to the ulcers of his foot. Continue to elevate and offload that foot. Follow-up in the wound healing center as before With the current cardiac issues would not be a candidate for further hyperbaric oxygen therapy. Status: Acute (3) Hypertensive emergency Status: Acute
[2017-02-19 21:06] LABS: Glucose,Whole Blood 189 mg/dL (75-99)
[2017-02-19] MEDS: HEPARIN SODIUM,PORCINE 5,000 UNIT/ML 1 ML VIAL SQ SCH (21:30)
[2017-02-19] MEDS: FAMOTIDINE 20 MG TAB PO SCH (21:31)
[2017-02-19] MEDS: ATORVASTATIN 40 MG TAB PO SCH (21:31)
[2017-02-20 06:10] LABS: Glucose,Whole Blood 89 mg/dL (75-99)
[2017-02-20] MEDS: INSULIN NPH/REG INSULIN 70/30 300 UNIT/3 ML VIAL SQ SCH ×3 (07:09→17:41)
[2017-02-20 07:18] LABS: Anisocytosis Slight; Basophils % (A) 1 %; CH 27.1; CHCM 32.2; Eosinophils # (A) 0.2 k/uL (0-0.7); Eosinophils % (A) 5 %; HCT 33.3 % (39.0-53.0); HDW 3.42; HGB 10.8 gm/dL (13.0-17.5); Hypochromasia Slight; Luc # (Auto) 0.14; Luc % (Auto) 4; Lymphocytes # (A) 0.9 k/uL (1.0-4.8); Lymphocytes % (A) 22 %; MCH 27.4 pg (25.0-35.0); MCHC 32.4 g/dL (31.0-37.0); MCV 84.7 fL (80.0-100.0); Mean Platelet Volume 8.6; Monocytes # (A) 0.3 k/uL (0-1.0); Monocytes % (A) 6 %; Neutrophils # (A) 2.6 k/uL (1.3-7.7); Neutrophils % (A) 63 %; Poikilocytosis Slight; RBC 3.93 m/uL (4.30-5.90); RDW 16.7 % (11.5-15.5); WBC 4.1 k/uL (3.8-10.6)
[2017-02-20 07:30] LABS: Calcium 9.5 mg/dL (8.4-10.2); Potassium 5.6 mmol/L (3.5-5.1)
[2017-02-20] MEDS: HEPARIN SODIUM,PORCINE 5,000 UNIT/ML 1 ML VIAL SQ SCH ×2 (08:49→21:45)
[2017-02-20] MEDS: METOPROLOL TARTRATE 50 MG TAB PO SCH ×2 (08:49→21:45)
[2017-02-20] MEDS: LEVOFLOXACIN 750 MG TAB PO SCH (08:50)
[2017-02-20] MEDS: ASPIRIN 81 MG CHEW PO SCH (08:50)
[2017-02-20] MEDS: cloNIDine HCL 0.1 MG TAB PO SCH ×2 (08:50→21:44)
--- NOTE | 2017-02-20 09:13 | P.NPCON ---
History of Present Illness - Reason for Consult acute renal failure - History of Present Illness Reason for consultation: Acute kidney injury on chronic kidney disease History of present illness: Patient is a 71-year-old male seen in renal consultation for acute kidney injury on chronic kidney disease. Patient has chronic kidney disease stage III with baseline creatinine in the range of 1.6-1.7 secondary to diabetic kidney disease. Creatinine was 1.94 on admission and is down to 1.73 today. Patient has chronic wound in his foot and was undergoing hyperbaric therapy as an outpatient. His blood pressure was elevated over systolic 200 and he subsequently came to the hospital for further care. Blood pressures are now better controlled in the range of systolic 140s to 150s. He denies any chest pain or shortness of breath. Denies any vomiting or diarrhea. Appetite is good. Admits to good urine output. No hematuria or dysuria. Denies use of NSAIDs. He did undergo stress test this admission which revealed abnormality along the inferior lateral wall. His ejection fraction is 40%. Vital signs are stable. General: The patient appeared well nourished and normally developed. HEENT: Head exam is unremarkable. Neck is without jugular venous distension. LUNGS: Lungs are clear to auscultation and percussion. Breath sounds decreased. HEART: Rate and Rhythm are regular. First and second heart sounds normal. No murmurs, rubs or gallops. ABDOMEN: Abdominal exam reveals normal bowel sounds. Non-tender and non- distended. No evidence of peritonitis. EXTREMITITES: No clubbing, cyanosis, or edema. Past Medical History Past Medical History: Heart Failure, Diabetes Mellitus, Deep Vein Thrombosis ( DVT), Hyperlipidemia, Hypertension Additional Past Medical History / Comment(s): per pt's "xray noted lung nodules". 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 Past Anesthesia/Blood Transfusion Reactions: Postoperative Nausea & Vomiting ( PONV) Past Psychological History: No Psychological Hx Reported Additional Psychological History / Comment(s): , lives in a single level home with his , no pets.has a w/c at home if needed. has visiting nurses and goes to [facility] 5 days a week for bariatric tx. no service. Has lived in [place] as well as [place]. He did spend 25 years and [place]. 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 Moved back to this region so that he could be close to his 3 children. Relates he stopped smoking several years ago. He has no significant history of alcohol or recreational drug use. No international travel. No experience. No animal exposures Smoking Status: Never smoker Past Alcohol Use History: None Reported Past Drug Use History: None Reported - Past Family History Father Family Medical History: Deep Vein Thrombosis (DVT) Additional Family Medical History / Comment(s): had valve sx- a week later from complications Mother Family Medical History: Congestive Heart Failure (CHF) Additional Family Medical History / Comment(s): phlebitis Medications and Allergies Home Medications Medication Instructions Recorded Confirmed Type Atorvastatin Calcium 10 mg PO HS 08/29/16 02/17/17 History Metoprolol Tartrate [Lopressor] 100 mg PO BID 12/10/16 02/17/17 History Moxifloxacin HCl 400 mg PO DAILY 02/11/17 02/17/17 History Insulin NPH/Reg Insulin 70/30 25 unit SQ AC-TID 02/17/17 02/17/17 History [humuLIN 70/30 VIAL] Losartan Potassium [Cozaar] 100 mg PO DAILY 02/17/17 02/17/17 History cloNIDine HCL [Catapres] 0.1 mg PO BID 02/17/17 02/17/17 History Allergies Allergy/AdvReac Type Severity Reaction Status Date / Time amlodipine Allergy Anaphylaxis Verified 02/17/17 16:51 lisinopril Allergy tongue Verified 02/17/17 16:51 swelling vancomycin Allergy Unknown Verified 02/17/17 16:51 Physical Exam Vitals: Vital Signs Temp Pulse Pulse Resp BP BP Pulse Ox 02/20/17 04:00 97.5 F L 78 16 153/77 97 02/20/17 00:00 97.6 F 64 16 144/82 98 02/19/17 20:00 97.6 F 66 16 177/82 97 02/19/17 14:41 97.6 F 56 L 77 16 141/72 100 02/19/17 11:29 97.6 F 60 77 16 164/82 100 Intake and Output 02/19/17 02/20/17 02/20/17 22:59 06:59 14:59 Intake Total 140 480 Balance 140 480 Intake: IV 20 80 0.9 @20mls/hr 20 80 Oral 120 400 Other: Voiding Method Toilet Toilet # Voids 1 Weight 103.3 kg Results - Lab Results Most recent lab results Calcium 9.5 mg/dL (8.4-10.2) 02/20/17 06:54 02/20/17 06:54 02/20/17 06:54 Assessment and Plan Plan: Assessment: #1. Nonoliguric acute kidney injury mostly prerenal due to hemodynamic instability. Improved. Creatinine 1.73 today. #2. Chronic kidney disease stage III secondary to diabetic kidney disease. Recent urinalysis revealed trace proteinuria without any evidence of hematuria. #3. Insulin-dependent diabetes mellitus. #4. Hyperkalemia secondary to Cozaar as well as metabolic acidosis. Improved. #5. Hypertension with chronic kidney disease. Better controlled now. Plan: Continue current antihypertensives - I will increase clonidine to 3 times daily. Low potassium diet. If potassium level continues to trend down then may resume Cozaar as GFR is now near baseline. Check renal ultrasound. Patient is cleared for cardiac catheterization from nephrology standpoint. I discussed with patient the risk of developing contrast-induced nephropathy in view of his underlying chronic kidney disease as well as diabetes mellitus. He understands. If he is to undergo cardiac catheterization, will hydrate him with 0.9 saline to be run at 100 mL an hour starting 12 hours prior to cardiac catheterization and to continue 12 hours post cardiac catheterization. Thank you for the consultation. I will continue to follow the patient with you during his hospital stay.
--- NOTE | 2017-02-20 10:47 | US ---
EXAMINATION TYPE: US kidneys/renal and bladder DATE OF EXAM: 02/20/2017 10:38 AM COMPARISON: NONE CLINICAL HISTORY: chintan. EXAM MEASUREMENTS: Right Kidney: 10.0 x 5.9 x 5.9 cm Left Kidney: 11.3 x 5.8 x 5.2 cm Right Kidney: No hydronephrosis or masses seen, somewhat lobular contour Left Kidney: No hydronephrosis or masses seen Bladder: wnl There is no evidence for hydronephrosis at this point in time. No nephrolithiasis is seen. No carley s are identified. The urinary bladder is anechoic. Bilateral ureteral jets are seen. IMPRESSION: NORMAL RENAL ULTRASOUND.
[2017-02-20 11:33] LABS: Glucose,Whole Blood 136 mg/dL (75-99)
[2017-02-20] MEDS: hydrALAZINE HCL 25 MG TAB PO SCH ×2 (15:13→21:45)
--- NOTE | 2017-02-20 15:24 | PN ---
Mr. Torres is a 71-year-old male with evidence of foot ulcer and gangrene who had minimal elevation of his troponin. He is doing well this morning. His breathing has been stable. He is denying any chest pain. He denies any dizziness or palpitation. He denies any nausea. He underwent myocardial perfusion imaging because of abnormal troponin and that revealed ejection fraction of 42% with paul-infarct ischemia in inferolateral wall. His medications at this time include: Lipitor 40 mg daily, aspirin once a day, clonidine 0.1 mg 3 times a day and metoprolol tartrate 100 mg twice a day. PHYSICAL EXAMINATION: Blood pressure 146/70 with a heart in the 70s. LUNGS: Clear. HEART: Regular rate and rhythm. S1, S2, no S3, no rub. ABDOMEN: Soft, nontender. EXTREMITIES: No edema. Lab data revealed BUN and creatinine 33 and 1.73, which is improved compared with the admission and appears to be back to his baseline. His potassium is 5.6, hemoglobin of 10.8. IMPRESSION: 1. Gangrene of the left foot, being treated. 2. Hypertension. 3. Renal failure. 4. Abnormal myocardial perfusion imaging with evidence of cardiomyopathy. RECOMMENDATIONS: From the cardiac standpoint, I will obtain an echocardiogram with Doppler, will start hydralazine to his regimen. Cut down the dose of clonidine. I will add nitrate. If his renal function continues to improve, he may be a candidate for coronary angiography.
[2017-02-20] MEDS ORDERED: cloNIDine HCL 0.1 MG TAB PO SCH (16:00)
--- NOTE | 2017-02-20 16:36 | PN ---
DATE OF SERVICE: 02/20/2017 This is a 71-year-old gentleman who was admitted with accelerated hypertension, also had elevated troponin 0.069. Cardiology planning cardiac catheterization. Potassium 4.6, creatinine is 1.73. Nephrology is following the patient also. Ultrasound has been ordered. PAST MEDICAL HISTORY: Reviewed. CARDIOVASCULAR SYSTEM: As mentioned earlier. RESPIRATORY: As mentioned earlier. GI: No nausea. : As mentioned earlier. Current medications are reviewed and include: 1. Ecotrin 81 mg. 2. Lipitor 40 mg. 3. Catapres 0.1 b.i.d. 4. Pepcid 20 mg q.h.s. 5. Heparin 5000 subQ b.i.d. 6. Omeprazole 25 mg b.i.d. 7. Humulin 70/30 twenty five units a.c. t.i.d. 8. Imdur 30 mg. 9. Levaquin 750 q.48. 10. Lopressor 100 mg p.o. b.i.d. 11. Morphine 4 mg q.4 p.r.n. 12. Narcan 0.2 q.2 p.r.n. 13. Zofran 4 mg q.8. 14. Restoril 50 mg q.h.s. PHYSICAL EXAM: Patient is alert and oriented x3. Pulse 70, blood pressure 140/71, respirations 18, temperature 97.3, pulse ox 98% on room air. HEENT: Conjunctivae normal. NECK: No jugular venous distension. CARDIOVASCULAR SYSTEM: S1, S2, muffled. RESPIRATORY: Breath sounds diminished at the bases. A few scattered rhonchi, no crackles. Abdomen is soft, nontender, no mass palpable. EXTREMITIES: Legs no edema, no swelling. NERVOUS SYSTEM: Higher function as mentioned, moves all 4 limbs, no focal motor deficits. LYMPHATICS: No lymph node enlargement in the neck, axillae or groin. SKIN: No ulcer, rash or bleeding. LABS: WBC is 4.1, hemoglobin is 10.8, potassium 5.7. Other labs are noted. ASSESSMENT: 1. Accelerated hypertension. 2. Elevated troponin, possible acute non-ST segment elevation myocardial infarction. Please note troponin up to 0.069 with an abnormal stress test and old [place] 3. Renal failure, possibly acute on chronic and chronic kidney disease, stage III. 4. Accelerate hypertension, uncontrolled, possible hypertensive urgency. 5. Hyperlipidemia. 6. Diabetes type 2 on insulin. 7. Diabetic nephropathy with hypertensive nephrosclerosis. 8. Chronic congestive heart failure with chronic diastolic dysfunction, ejection fraction 50% to 55%. 9. Peripheral artery disease. 10. Chronic left foot with osteomyelitis, [facility] 11. History of recent tracheobronchitis. 12. History of diabetic ulcer stage IV on the left foot. 13. History of diabetic retinopathy. 14. History of pulmonary nodules. 15. History of cataracts. 16. History of hearing loss. 17. 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 18. History of polymicrobial in the wound. 19. Hyperkalemia. 20. FULL CODE. RECOMMENDATION: In this 71-year-old gentleman who presented with multiple complex medical issues, will monitor the patient closely. Continue with the current medications. Continue with the symptomatic treatment, otherwise discussed with Cardiology. Await renal functions and Nephrology input to consider cardiac catheterization. Prognosis guarded because of multiple complex medical issues as mentioned earlier. Continue to monitor, low-potassium diet. See orders for further details. Further recommendations to follow. MTDD
[2017-02-20 16:48] LABS: Glucose,Whole Blood 65 mg/dL (75-99)
[2017-02-20 17:19] LABS: Glucose,Whole Blood 69 mg/dL (75-99)
[2017-02-20 17:51] LABS: Glucose,Whole Blood 80 mg/dL (75-99)
[2017-02-20 17:51] LABS: Glucose,Whole Blood 95 mg/dL (75-99)
[2017-02-20 20:45] LABS: Glucose,Whole Blood 160 mg/dL (75-99)
[2017-02-20] MEDS: ATORVASTATIN 40 MG TAB PO SCH (21:44)
[2017-02-20] MEDS: FAMOTIDINE 20 MG TAB PO SCH (21:45)
[2017-02-21 06:16] LABS: Glucose,Whole Blood 156 mg/dL (75-99)
[2017-02-21 06:37] LABS: Anisocytosis Slight; Basophils % (A) 1 %; CH 27.2; CHCM 32.4; Eosinophils # (A) 0.2 k/uL (0-0.7); Eosinophils % (A) 4 %; HCT 34.6 % (39.0-53.0); HDW 3.36; HGB 11.3 gm/dL (13.0-17.5); Hypochromasia Slight; Luc # (Auto) 0.13; Luc % (Auto) 3; Lymphocytes # (A) 0.9 k/uL (1.0-4.8); Lymphocytes % (A) 19 %; MCH 27.4 pg (25.0-35.0); MCHC 32.5 g/dL (31.0-37.0); MCV 84.4 fL (80.0-100.0); Mean Platelet Volume 9.3; Monocytes # (A) 0.4 k/uL (0-1.0); Monocytes % (A) 7 %; Neutrophils # (A) 3.2 k/uL (1.3-7.7); Neutrophils % (A) 66 %; RDW 16.7 % (11.5-15.5); WBC 4.9 k/uL (3.8-10.6); WBC (Perox) 5.48
[2017-02-21 06:51] LABS: Calcium 9.2 mg/dL (8.4-10.2); Potassium 5.3 mmol/L (3.5-5.1)
[2017-02-21] MEDS: INSULIN NPH/REG INSULIN 70/30 300 UNIT/3 ML VIAL SQ SCH ×3 (07:04→17:29)
[2017-02-21] MEDS: hydrALAZINE HCL 25 MG TAB PO SCH ×2 (08:36→20:25)
[2017-02-21] MEDS: cloNIDine HCL 0.1 MG TAB PO SCH ×2 (08:36→20:24)
[2017-02-21] MEDS: METOPROLOL TARTRATE 50 MG TAB PO SCH ×2 (08:36→20:25)
[2017-02-21] MEDS: ISOSORBIDE MONONITRATE ER 30 MG TAB.ER.24H PO SCH (08:37)
[2017-02-21] MEDS: ASPIRIN 81 MG CHEW PO SCH (08:37)
[2017-02-21] MEDS: HEPARIN SODIUM,PORCINE 5,000 UNIT/ML 1 ML VIAL SQ SCH ×2 (08:37→20:24)
--- NOTE | 2017-02-21 09:21 | PN ---
DATE OF SERVICE: 02/21/2017 The patient is seen for follow-up for acute kidney injury. He was admitted to the hospital with wound on his left foot and had been receiving hyperbaric therapy as outpatient. His blood pressure was significantly elevated at the time of admission and it is now much better controlled. Serum creatinine was 1.9 on initial admission and now it was down to 1.7 yesterday, and back up to 1.9 mg/dL. Patient does have CKD with baseline creatinine about 1.7 to 1.9 mg/dL. On examination, blood pressure is 147/83, heart rate 71 per minute. He is afebrile. Examination of the heart S1 and S2. Examination of the lungs, bilateral breath sounds are heard. Abdomen is soft, nontender. Examination of the lower extremities shows no evidence of edema. Left foot is currently wrapped. Labs show sodium 140, potassium 5.3, BUN 37, serum creatinine 1.94, hemoglobin 11.3 g/dL. ASSESSMENT: 1. Chronic kidney disease with baseline creatinine about 1.7 to 1.9 mg/dL. Renal function currently not far from baseline. Patient has been voiding fairly well. I will check post void residual to make sure there is no evidence of retention. 2. Chronic kidney disease, NKF stage IIIB, with previous creatinine about 1.7 to 2 mg/dL secondary to diabetic kidney disease. 3. Cardiomyopathy, ejection fraction of about 40%. 4. Hyperkalemia associated with metabolic acidosis and Cozaar, currently improved. 5. Hypertension, much better controlled 6. Elevated troponins with myocardial perfusion imaging showing paul-infarct ischemia in the inferolateral wall, being followed by cardiology. Patient may need cardiac catheterization which should be okay as his renal function is not far from baseline. He has been maintained on IV hydration if cardiac cath and scheduled. 7. Hypertension, currently much better controlled.
[2017-02-21 12:00] LABS: Glucose,Whole Blood 118 mg/dL (75-99)
[2017-02-21] MEDS ORDERED: NITROGLYCERIN SL TABS 0.4 MG TAB SUBLINGUAL PRN (12:50)
[2017-02-21] MEDS ORDERED: SODIUM CHLORIDE 0.9% 1,000 ML in EMPTY BAG 1 BAG IV ONE (12:50)
[2017-02-21] MEDS ORDERED: ATORVASTATIN 80 MG TAB PO STA (12:50)
[2017-02-21] MEDS ORDERED: ALPRAZolam 0.25 MG TAB PO PRN (12:50)
[2017-02-21] MEDS ORDERED: ASPIRIN 325 MG TAB PO STA (12:50)
[2017-02-21] MEDS ORDERED: ALPRAZolam 0.5 MG TAB PO PRN (12:50)
--- NOTE | 2017-02-21 14:15 | P.PN ---
Subjective Principal diagnosis: Abnormal troponins This is a 71-year-old gentleman with known history of hypertension, diabetes, hyperlipidemia, who was in the [facility] chamber receiving treatment for a nonhealing ulcer to the left foot, while they're patient was noted to have a significantly elevated blood pressure and for this reason was sent to the emergency room for further evaluation. Patient was also noted to have mildly abnormal troponins which could be secondary to abnormal renal function. Patient underwent a stress test, nuclear portion suggested pharmacologically induced left ventricular myocardial ischemia. Patient denies at any point in time having any chest discomfort or difficulty in breathing. Creatinine today is 1.9. The patient was cleared by nephrology to undergo cardiac catheterization. The risks and the benefits were explained in detail to the patient and his today by Dr. Astudillo. Procedure will be performed tomorrow. Objective - Vital Signs Vital signs: Vital Signs Temp 96.8 F L 02/21/17 11:24 Pulse 60 02/21/17 11:24 Resp 20 02/21/17 11:24 BP 150/79 02/21/17 11:24 Pulse Ox 99 02/21/17 11:24 Intake & Output 02/20/17 02/21/17 02/21/17 18:59 06:59 18:59 Intake Total 540 480 480 Balance 540 480 480 Weight 103.3 kg 102.5 kg Intake: IV 480 0.9 @20mls/hr 480 Oral 540 480 Other: Voiding Method Toilet Toilet Toilet # Voids 1 1 1 - Exam PHYSICAL EXAMINATION: HEENT: Head is atraumatic, normocephalic. Pupils equal, round. Neck is supple. There is no elevated jugular venous pressure. HEART EXAMINATION: Heart S1, S2 normal. No murmur or gallop heard. CHEST EXAMINATION: Lungs are clear to auscultation and precussion. No chest wall tenderness is noted on palpation or with deep breathing. ABDOMEN: Soft, nontender. Bowel sounds are heard. No organomegaly noted. EXTREMITIES: 2+ peripheral pulses with no evidence of peripheral edema and no calf tenderness noted. Dressing in place to the right foot. NEUROLOGIC patient is awake, alert and oriented -3. . - Labs CBC & Chem 7: 02/21/17 06:03 02/21/17 06:03 Labs: Abnormal Lab Results - Last 24 Hours (Table) 0402/20/17 02/20/17 Range/Units 16:40 16:59 20:44 RBC (4.30-5.90) m/uL Hgb (13.0-17.5) gm/dL Hct (39.0-53.0) % RDW (11.5-15.5) % Lymphocytes # (1.0-4.8) k/uL Potassium (3.5-5.1) mmol/L Chloride (98-107) mmol/L Carbon Dioxide (22-30) mmol/L BUN (9-20) mg/dL Creatinine (0.66-1.25) mg/dL Glucose (74-99) mg/dL POC Glucose (mg/dL) 65 L 69 L 160 H (75-99) mg/dL 02/21/17 02/21/17 02/21/17 Range/Units 06:03 06:03 06:15 RBC 4.10 L (4.30-5.90) m/uL Hgb 11.3 L (13.0-17.5) gm/dL Hct 34.6 L (39.0-53.0) % RDW 16.7 H (11.5-15.5) % Lymphocytes # 0.9 L (1.0-4.8) k/uL Potassium 5.3 H (3.5-5.1) mmol/L Chloride 110 H (98-107) mmol/L Carbon Dioxide 20 L (22-30) mmol/L BUN 37 H (9-20) mg/dL Creatinine 1.94 H (0.66-1.25) mg/dL Glucose 153 H (74-99) mg/dL POC Glucose (mg/dL) 156 H (75-99) mg/dL 02/21/17 Range/Units 11:46 RBC (4.30-5.90) m/uL Hgb (13.0-17.5) gm/dL Hct (39.0-53.0) % RDW (11.5-15.5) % Lymphocytes # (1.0-4.8) k/uL Potassium (3.5-5.1) mmol/L Chloride (98-107) mmol/L Carbon Dioxide (22-30) mmol/L BUN (9-20) mg/dL Creatinine (0.66-1.25) mg/dL Glucose (74-99) mg/dL POC Glucose (mg/dL) 118 H (75-99) mg/dL Assessment and Plan (1) Elevated troponin Status: Acute (2) Renal failure, acute on chronic Status: Acute (3) Diabetes Status: Chronic (4) Diabetic foot ulcer Status: Chronic (5) HTN (hypertension) Status: Chronic (6) Hyperlipemia Status: Chronic (7) MRSA (methicillin resistant Staphylococcus aureus) Status: Chronic (8) Osteomyelitis Status: Chronic Plan: From cardiology's perspective, cardiac catheterization will be performed tomorrow by Dr. Astudillo. The risks and benefits were explained to the patient and his in detail. He will receive IV fluids tonight, we will check lytes BUN and creatinine in the morning. DNP note has been reviewed, I agree with a documented findings and plan of care. Patient was seen and examined.
[2017-02-21 16:29] LABS: Glucose,Whole Blood 206 mg/dL (75-99)
--- NOTE | 2017-02-21 17:26 | PN ---
DATE OF SERVICE: 02/21/2017 This 71-year-old gentleman who was admitted with elevated troponin, possible acute lze-NO-bgmzflw-elevation myocardial infarction, also had renal failure. The patient also had hypertension and multiple other medical issues. Cardiology is following the patient closely for possible cardiac catheterization. No chest pain. No palpitation. No fever. Patient also had possible cardiomyopathy. On exam, alert and oriented x3. Pulse is 60, blood pressure 150/79, respiration 20, temperature 96.8, pulse ox 99% on room air. HEENT: Conjunctivae normal. NECK: No jugular venous distention. CARDIOVASCULAR SYSTEM: S1, S2 muffled. RESPIRATORY SYSTEM: Breath sounds diminished at the bases. No rhonchi. No crackles. ABDOMEN: Soft, nontender. No mass palpable. LEGS: No edema. No swelling. NERVOUS SYSTEM: No focal deficit. LABS: WBC 4.3, hemoglobin 11.3. Potassium 5.3. Creatinine is 1.94. ASSESSMENT: 1. Elevated troponin with possible acute foc-DA-yfjdvem-elevation myocardial infarction. Troponin 0.069 with abnormal stress test and possible old myocardial infarction. 2. Accelerated hypertension, possible hypertensive urgency. 3. Renal failure, possible acute on chronic, with chronic kidney disease, stage III. 4. Hyperlipidemia. 5. Diabetes mellitus, type 2, on insulin. 6. Diabetic nephropathy with hypertensive nephrosclerosis. 7. Chronic congestive heart failure with chronic diastolic dysfunction; ejection fraction 50% to 55%. 8. Peripheral arterial disease. 9. Chronic left foot osteomyelitis, being followed at the wound clinic in the hyperbaric chamber. 10. History of recent tracheobronchitis. 11. History of diabetic ulcer, stage IV, on the left foot. 12. History of diabetic retinopathy. 13. History of pulmonary nodules. 14. History of cataracts. 15. History of hearing loss. 16. History of vancomycin-resistant Enterococcus and methicillin-resistant Staphylococcus aureus. 17. History of polymicrobial in the wound. 18. Hyperkalemia. 19. FULL CODE. RECOMMENDATIONS AND DISCUSSION: In this 71-year-old gentleman who presented with multiple medical issues, we will monitor the patient closely, monitor creatinine closely. Otherwise, follow closely with Cardiology regarding cardiac catheterization and further plans. Prognosis guarded. Further recommendations to follow.
--- NOTE | 2017-02-21 18:25 | P.PN ---
Subjective Principal diagnosis: hypertension Pleasant 71-year-old male well-known to service because of his care in the wound healing Center for his complex left diabetic foot infection. The recently hospitalized for about a congestive heart failure. He was improving and doing somewhat better. However developed a bout of accelerated hypertension and was hospitalized. Workup has ensued and is now been seen by cardiology and there is evidence of prior myocardial infarction and evidence of some ischemic change on his stress test. The patient is having worsening of his baseline chronic kidney disease and cardiac catheterization is on hold at this point in time until there is improvement of his renal status. Request for wound care and further input at this time. Patient is feeling considerably better than before. When he has hypertension he relates that he was not having any chest pain at all when he was feeling a bit poorly. This is now resolved. Cardiology is following. His abnormal stress test and hopefully will have cardiac catheterization more now that his creatinine is improved Objective - Vital Signs Vital signs: Vital Signs Temp 97.8 F 02/21/17 16:00 Pulse 98 02/21/17 16:00 Resp 20 02/21/17 16:00 BP 152/76 02/21/17 16:00 Pulse Ox 98 02/21/17 16:00 Intake & Output 02/20/17 02/21/17 02/21/17 18:59 06:59 18:59 Intake Total 540 480 720 Output Total 500 Balance 540 480 220 Weight 103.3 kg 102.5 kg Intake: IV 480 0.9 @20mls/hr 480 Oral 540 720 Output: Urine 500 Other: Voiding Method Toilet Toilet Toilet # Voids 1 1 1 - Exam Gen: This is a 71-year-old male. He is sitting up in bed and appears to be in no acute distress. No respiratory distress noted at rest. HEENT: Head is atraumatic, normocephalic. Pupils equal, round. Sclerae is anicteric. NECK: Supple. No JVD. No lymphadenopathy. No thyromegaly. LUNGS: Diminished to the bases. Clear to auscultation. No wheezes or rhonchi. No intercostal retractions. HEART: Regular rate and rhythm. No murmur. ABDOMEN: Soft. Bowel sounds are present. No masses. No tenderness. EXTREMITIES: Dorsalis pedis is palpable bilaterally. Patient has noted amputation on the right foot that is old and healed. Patient has amputation of the great toe and third toe oh which wounds are healed. There is a wound to the amputation site on the second toe and on the lateral metatarsal. Please see the nursing photography for measurements NEUROLOGICAL: Patient is awake, alert and oriented x3. No gross focal sensory motor deficits are noted - Labs CBC & Chem 7: 02/21/17 06:03 02/21/17 06:03 Labs: Abnormal Lab Results - Last 24 Hours (Table) 02/20/17 02/21/17 02/21/17 Range/Units 20:44 06:03 06:03 RBC 4.10 L (4.30-5.90) m/uL Hgb 11.3 L (13.0-17.5) gm/dL Hct 34.6 L (39.0-53.0) % RDW 16.7 H (11.5-15.5) % Lymphocytes # 0.9 L (1.0-4.8) k/uL Potassium 5.3 H (3.5-5.1) mmol/L Chloride 110 H (98-107) mmol/L Carbon Dioxide 20 L (22-30) mmol/L BUN 37 H (9-20) mg/dL Creatinine 1.94 H (0.66-1.25) mg/dL Glucose 153 H (74-99) mg/dL POC Glucose (mg/dL) 160 H (75-99) mg/dL 02/21/17 02/21/17 02/21/17 Range/Units 06:15 11:46 16:27 RBC (4.30-5.90) m/uL Hgb (13.0-17.5) gm/dL Hct (39.0-53.0) % RDW (11.5-15.5) % Lymphocytes # (1.0-4.8) k/uL Potassium (3.5-5.1) mmol/L Chloride (98-107) mmol/L Carbon Dioxide (22-30) mmol/L BUN (9-20) mg/dL Creatinine (0.66-1.25) mg/dL Glucose (74-99) mg/dL POC Glucose (mg/dL) 156 H 118 H 206 H (75-99) mg/dL Laboratory Results WBC 4.9 k/uL (3.8-10.6) 02/21/17 06:03 RBC 4.10 m/uL (4.30-5.90) L 02/21/17 06:03 Hgb 11.3 gm/dL (13.0-17.5) L 02/21/17 06:03 Hct 34.6 % (39.0-53.0) L 02/21/17 06:03 MCV 84.4 fL (80.0-100.0) 02/21/17 06:03 MCH 27.4 pg (25.0-35.0) 02/21/17 06:03 MCHC 32.5 g/dL (31.0-37.0) 02/21/17 06:03 RDW 16.7 % (11.5-15.5) H 02/21/17 06:03 Plt Count 181 k/uL (150-450) 02/21/17 06:03 Neutrophils % 66 % 02/21/17 06:03 Neutrophils % (Manual) 68.0 % 02/18/17 02:04 Lymphocytes % 19 % 02/21/17 06:03 Lymphocytes % (Manual) 17.0 % 02/18/17 02:04 Monocytes % 7 % 02/21/17 06:03 Monocytes % (Manual) 14.0 % 02/18/17 02:04 Eosinophils % 4 % 02/21/17 06:03 Eosinophils % (Manual) 1.0 % 02/18/17 02:04 Basophils % 1 % 02/21/17 06:03 Neutrophils # 3.2 k/uL (1.3-7.7) 02/21/17 06:03 Neutrophils # (Manual) 3.0 k/uL (1.3-7.7) 02/18/17 02:04 Lymphocytes # 0.9 k/uL (1.0-4.8) L 02/21/17 06:03 Lymphocytes # (Manual) 0.7 k/uL (1.0-4.8) L 02/18/17 02:04 Monocytes # 0.4 k/uL (0-1.0) 02/21/17 06:03 Monocytes # (Manual) 0.6 k/uL (0-1.0) 02/18/17 02:04 Eosinophils # 0.2 k/uL (0-0.7) 02/21/17 06:03 Eosinophils # (Manual) 0.0 k/uL (0-0.7) 02/18/17 02:04 Basophils # 0.0 k/uL (0-0.2) 02/21/17 06:03 Nucleated RBCs 0 /100 WBC (0-0) 02/18/17 02:04 Manual Slide Review Performed 02/18/17 02:04 Hypochromasia Slight 02/21/17 06:03 Poikilocytosis Slight 02/20/17 06:54 Anisocytosis Slight 02/21/17 06:03 PT 11.3 sec (9.0-12.0) 02/19/17 15:20 INR 1.1 (<1.1) 02/19/17 15:20 APTT 32.3 sec (22.0-30.0) H 02/18/17 02:04 Sodium 140 mmol/L (137-145) 02/21/17 06:03 Potassium 5.3 mmol/L (3.5-5.1) H 02/21/17 06:03 Chloride 110 mmol/L (98-107) H 02/21/17 06:03 Carbon Dioxide 20 mmol/L (22-30) L 02/21/17 06:03 Anion Gap 10 mmol/L 02/21/17 06:03 BUN 37 mg/dL (9-20) H 02/21/17 06:03 Creatinine 1.94 mg/dL (0.66-1.25) H 02/21/17 06:03 Est GFR (MDRD) Af Amer 42 (>60 ml/min/1.73 sqM) 02/21/17 06:03 Est GFR (MDRD) Non-Af 34 (>60 ml/min/1.73 sqM) 02/21/17 06:03 Glucose 153 mg/dL (74-99) H 02/21/17 06:03 POC Glucose (mg/dL) 206 mg/dL (75-99) H 02/21/17 16:27 POC Glu [employer]ing [employer]cker ID Victoria Lemon 02/21/17 16:[address] Glu mg/dL 171 mg/dL 02/18/17 02:04 Hemoglobin A1c 7.6 % (4.2-6.1) H 02/18/17 02:04 Calcium 9.2 mg/dL (8.4-10.2) 02/21/17 06:03 Troponin I 0.069 ng/mL (0.000-0.034) H* 02/18/17 05:31 Assessment and Plan (1) Renal failure, acute on chronic Status: Acute (2) 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 At admission there was concerns to myocardial infarction and workup has been done. There is evidence of some prior myocardial damage by his Lexiscan test. Cardiology is following however with his acute on chronic renal failure will not be proceeding with cardiac catheterization at this point in time. Goal is to have him have some outpatient treatment and his creatinine improves then do an outpatient cardiac cath and possibly stenting. The patient is quite asymptomatic at this time. His blood pressure is better controlled He is denying any other new symptoms. Silver dressing is requested to the ulcers of his foot. Continue to elevate and offload that foot. Follow-up in the wound healing center as before With the current cardiac issues would not be a candidate for further hyperbaric oxygen therapy until cleared by cardiology Status: Acute (3) Hypertensive emergency Status: Acute
[2017-02-21] MEDS: ATORVASTATIN 40 MG TAB PO SCH (20:24)
[2017-02-21] MEDS: FAMOTIDINE 20 MG TAB PO SCH (20:25)
[2017-02-21 20:39] LABS: Glucose,Whole Blood 64 mg/dL (75-99)
[2017-02-21 21:08] LABS: Glucose,Whole Blood 63 mg/dL (75-99)
[2017-02-21 21:37] LABS: Glucose,Whole Blood 91 mg/dL (75-99)
[2017-02-22 05:35] LABS: Glucose,Whole Blood 120 mg/dL (75-99)
[2017-02-22] MEDS: HEPARIN SODIUM,PORCINE 5,000 UNIT/ML 1 ML VIAL SQ SCH ×2 (06:32→20:36)
[2017-02-22] MEDS: ASPIRIN 81 MG CHEW PO SCH (06:32)
[2017-02-22] MEDS: cloNIDine HCL 0.1 MG TAB PO SCH (06:32)
[2017-02-22] MEDS: ISOSORBIDE MONONITRATE ER 30 MG TAB.ER.24H PO SCH (06:33)
[2017-02-22] MEDS: hydrALAZINE HCL 25 MG TAB PO SCH (06:33)
[2017-02-22] MEDS: METOPROLOL TARTRATE 50 MG TAB PO SCH ×2 (06:34→20:36)
[2017-02-22 06:42] LABS: Anisocytosis Slight; Basophils % (A) 0 %; CH 27.4; CHCM 32.4; Eosinophils # (A) 0.2 k/uL (0-0.7); Eosinophils % (A) 4 %; HDW 3.37; HGB 10.8 gm/dL (13.0-17.5); Hypochromasia Slight; Luc # (Auto) 0.11; Luc % (Auto) 2; Lymphocytes % (A) 17 %; MCH 27.6 pg (25.0-35.0); MCHC 32.6 g/dL (31.0-37.0); MCV 84.9 fL (80.0-100.0); Mean Platelet Volume 9.1; Monocytes # (A) 0.4 k/uL (0-1.0); Monocytes % (A) 6 %; Neutrophils # (A) 4.1 k/uL (1.3-7.7); Neutrophils % (A) 71 %; RBC 3.89 m/uL (4.30-5.90); RDW 16.8 % (11.5-15.5); WBC 5.8 k/uL (3.8-10.6); WBC (Perox) 6.52
[2017-02-22 06:56] LABS: Calcium 8.8 mg/dL (8.4-10.2); Potassium 5.1 mmol/L (3.5-5.1)
[2017-02-22] MEDS ORDERED: LIDOCAINE 2% INJ 20 MG/ML (20 ML MDV) ONE (09:20)
[2017-02-22] MEDS ORDERED: VERAPAMIL 2.5 MG/ML 2 ML AMP ONE (09:21)
[2017-02-22] MEDS ORDERED: IV FLUID CONTINUATION 1,000 ML IV ONE (09:22)
[2017-02-22] MEDS ORDERED: fentaNYL (PF) 50 MCG/ML 2 ML AMP ONE (09:37)
[2017-02-22] MEDS ORDERED: diphenhydrAMINE 50 MG/ML 1 ML VIAL ONE (09:38)
[2017-02-22] MEDS ORDERED: fentaNYL (PF) 50 MCG/ML 2 ML AMP IV ONE (09:51)
[2017-02-22] MEDS ORDERED: diphenhydrAMINE 50 MG/ML 1 ML VIAL IVP ONE (09:52)
[2017-02-22] MEDS ORDERED: LIDOCAINE 2% INJ 20 MG/ML SQ ONE (09:54)
[2017-02-22] MEDS ORDERED: VERAPAMIL SYRINGE (5 MG/10 ML) INTRAARTER ONE (09:56)
[2017-02-22] MEDS ORDERED: HEPARIN SODIUM 1,000 UNIT/ML VIAL ONE (09:56)
[2017-02-22] MEDS ORDERED: IODIXANOL 320 MG/ML 100 ML INTRAARTER ONE (10:27)
[2017-02-22] MEDS ORDERED: RX INFO: IV CONTRAST WAS GIVEN 1 EACH MISC MISCELLANE PRN (10:33)
[2017-02-22] MEDS ORDERED: SODIUM CHLORIDE 0.9% 1,000 ML IV SCH (10:45)
[2017-02-22] MEDS: INSULIN NPH/REG INSULIN 70/30 300 UNIT/3 ML VIAL SQ SCH ×3 (10:54→17:27)
[2017-02-22 11:56] LABS: Glucose,Whole Blood 158 mg/dL (75-99)
--- NOTE | 2017-02-22 14:26 | P.GSCN ---
<Mary Ann Acosta - Last Filed: 02/22/17 14:03> History of Present Illness Consult date: 02/22/17 Reason for Consult: Coronary artery disease, possibility of surgical revascularization. Requesting physician: Isa Astudillo History of present illness: This 71-year-old gentleman with a history of uncontrolled diabetes causing neuropathy and retinopathy, hypertension, hyperlipidemia, chronic kidney disease stage III, and diastolic congestive heart failure was being treated in the wound care center for a left foot osteomyelitis utilizing hyperbaric chamber treatments. During his treatment last he was noted to be very hypertensive and was sent to the emergency room for hypertensive urgency. At that time he denied chest pain, shortness of breath, nausea, vomiting, recent illnesses, but did admit to just not feeling well. His EKG in the emergency room demonstrated ST changes, and he had slightly elevated troponins although the elevation was thought to be related to his kidney disease. Cardiology was consulted, stress test was performed which demonstrated some ischemic changes. Patient had heart catheterization this morning with Dr. Astudillo which demonstrated significant coronary artery disease. Cardiothoracic surgery was consulted for the possibility of surgical revascularization Review of Systems 14 point review systems was completed and is negative except as noted. - Constitutional Reports as per HPI - Cardiovascular Reports as per HPI - Respiratory Reports as per HPI - Integumentary Reports foot/leg ulcers Past Medical History Past Medical History: Heart Failure, Diabetes Mellitus, Deep Vein Thrombosis ( DVT), Hyperlipidemia, Hypertension Additional Past Medical History / Comment(s): per pt's "xray noted lung nodules". 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 Past Anesthesia/Blood Transfusion Reactions: Postoperative Nausea & Vomiting ( PONV) Past Psychological History: No Psychological Hx Reported Additional Psychological History / Comment(s): , lives in a single level home with his , no pets.has a w/c at home if needed. has visiting nurses and goes to [facility] 5 days a week for bariatric tx. no service. Has lived in [place] as well as [place]. He did spend 25 years and [place]. 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 Moved back to this region so that he could be close to his 3 children. Relates he stopped smoking several years ago. He has no significant history of alcohol or recreational drug use. No international travel. No experience. No animal exposures Smoking Status: Never smoker Past Alcohol Use History: None Reported Past Drug Use History: None Reported - Past Family History Father Family Medical History: Deep Vein Thrombosis (DVT) Additional Family Medical History / Comment(s): had valve sx- a week later from complications Mother Family Medical History: Congestive Heart Failure (CHF) Additional Family Medical History / Comment(s): phlebitis Medications and Allergies Home Medications Medication Instructions Recorded Confirmed Type Atorvastatin Calcium 10 mg PO HS 08/29/16 02/17/17 History Metoprolol Tartrate [Lopressor] 100 mg PO BID 12/10/16 02/17/17 History Moxifloxacin HCl 400 mg PO DAILY 02/11/17 02/17/17 History Insulin NPH/Reg Insulin 70/30 25 unit SQ AC-TID 02/17/17 02/17/17 History [humuLIN 70/30 VIAL] Losartan Potassium [Cozaar] 100 mg PO DAILY 02/17/17 02/17/17 History cloNIDine HCL [Catapres] 0.1 mg PO BID 02/17/17 02/17/17 History Allergies Allergy/AdvReac Type Severity Reaction Status Date / Time amlodipine Allergy Anaphylaxis Verified 02/17/17 16:51 lisinopril Allergy tongue Verified 02/17/17 16:51 swelling vancomycin Allergy Unknown Verified 02/17/17 16:51 Surgical - Exam Vital Signs Temp Pulse Resp BP Pulse Ox 98.0 F 73 18 217/98 98 02/17/17 15:55 02/17/17 15:55 02/17/17 15:55 02/17/17 15:55 02/17/17 15:55 - General well developed, no distress - Eyes PERRL, normal ocular movement - Neck no masses, no bruits, trachea midline thyroid nodule: absent, lymphadenopathy: absent, carotid bruit: absent - Respiratory Respirations even, nonlabored. Currently on room air. normal respiratory effort, clear to auscultation - Cardiovascular Currently normal sinus rhythm on telemetry. No edema present. Rhythm: regular Heart Sounds: normal: S1, S2 - Abdomen Abdomen: soft, non tender, bowel sounds - Genitourinary Voiding clear yellow urine per urinal. - Rectum Deferred - Integumentary Vascular discoloration to lower extremities. Amputations to left foot second and third toe, right foot third toe. - Neurologic normal coordination - Musculoskeletal normal gait - Psychiatric oriented to time, oriented to person, oriented to place, speech is normal, memory intact Results - Labs 02/22/17 06:18 02/22/17 06:18 Abnormal Lab Results - Last 24 Hours (Table) 02/21/17 02/21/17 02/21/17 Range/Units 16:27 20:38 21:07 RBC (4.30-5.90) m/uL Hgb (13.0-17.5) gm/dL Hct (39.0-53.0) % RDW (11.5-15.5) % Chloride (98-107) mmol/L Carbon Dioxide (22-30) mmol/L BUN (9-20) mg/dL Creatinine (0.66-1.25) mg/dL Glucose (74-99) mg/dL POC Glucose (mg/dL) 206 H 64 L 63 L (75-99) mg/dL 02/22/17 02/22/17 02/22/17 Range/Units 05:34 06:18 06:18 RBC 3.89 L (4.30-5.90) m/uL Hgb 10.8 L (13.0-17.5) gm/dL Hct 33.0 L (39.0-53.0) % RDW 16.8 H (11.5-15.5) % Chloride 111 H (98-107) mmol/L Carbon Dioxide 20 L (22-30) mmol/L BUN 34 H (9-20) mg/dL Creatinine 1.89 H (0.66-1.25) mg/dL Glucose 133 H (74-99) mg/dL POC Glucose (mg/dL) 120 H (75-99) mg/dL 02/22/17 Range/Units 11:44 RBC (4.30-5.90) m/uL Hgb (13.0-17.5) gm/dL Hct (39.0-53.0) % RDW (11.5-15.5) % Chloride (98-107) mmol/L Carbon Dioxide (22-30) mmol/L BUN (9-20) mg/dL Creatinine (0.66-1.25) mg/dL Glucose (74-99) mg/dL POC Glucose (mg/dL) 158 H (75-99) mg/dL Diabetes panel 02/22/17 Range/Units 06:18 Sodium 139 (137-145) mmol/L Potassium 5.1 (3.5-5.1) mmol/L Chloride 111 H (98-107) mmol/L Carbon Dioxide 20 L (22-30) mmol/L BUN 34 H (9-20) mg/dL Creatinine 1.89 H (0.66-1.25) mg/dL Glucose 133 H (74-99) mg/dL Calcium 8.8 (8.4-10.2) mg/dL Calcium panel 02/22/17 Range/Units 06:18 Calcium 8.8 (8.4-10.2) mg/dL Pituitary panel 02/22/17 Range/Units 06:18 Sodium 139 (137-145) mmol/L Potassium 5.1 (3.5-5.1) mmol/L Chloride 111 H (98-107) mmol/L Carbon Dioxide 20 L (22-30) mmol/L BUN 34 H (9-20) mg/dL Creatinine 1.89 H (0.66-1.25) mg/dL Glucose 133 H (74-99) mg/dL Calcium 8.8 (8.4-10.2) mg/dL Adrenal panel 02/22/17 Range/Units 06:18 Sodium 139 (137-145) mmol/L Potassium 5.1 (3.5-5.1) mmol/L Chloride 111 H (98-107) mmol/L Carbon Dioxide 20 L (22-30) mmol/L BUN 34 H (9-20) mg/dL Creatinine 1.89 H (0.66-1.25) mg/dL Glucose 133 H (74-99) mg/dL Calcium 8.8 (8.4-10.2) mg/dL - Imaging Chest x-ray: report reviewed, image reviewed EKG: image reviewed Assessment and Plan (1) Elevated troponin Status: Acute (2) Renal failure, acute on chronic Status: Acute (3) 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 Continue aspirin, Lipitor, Lopressor. Resume ARB okay with nephrology. 2. Blood pressure control with current medications. 3. Diabetic management per primary care service. 4. 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 5. Will discuss the case with Dr. London from cardiothoracic surgery to determine appropriateness of surgical revascularization. Thank you Dr. Astudillo for this consult. We look forward to working with you in the care of your patient. Time with Patient: Greater than 30 <Vlad London R - Last Filed: 02/23/17 11:48> Surgical - Exam Vital Signs Temp Pulse Resp BP Pulse Ox 98.0 F 73 18 217/98 98 02/17/17 15:55 02/17/17 15:55 02/17/17 15:55 02/17/17 15:55 02/17/17 15:55 Results - Labs 02/23/17 06:36 02/23/17 06:36 Abnormal Lab Results - Last 24 Hours (Table) 02/22/17 02/22/17 02/22/17 Range/Units 11:44 16:15 17:21 RBC (4.30-5.90) m/uL Hgb (13.0-17.5) gm/dL Hct (39.0-53.0) % RDW (11.5-15.5) % Potassium (3.5-5.1) mmol/L Chloride (98-107) mmol/L Carbon Dioxide (22-30) mmol/L BUN (9-20) mg/dL Creatinine (0.66-1.25) mg/dL POC Glucose (mg/dL) 158 H 147 H (75-99) mg/dL Albumin (3.5-5.0) g/dL HDL Cholesterol (40-60) mg/dL Urine Protein 1+ H (Negative) Urine Glucose (UA) 2+ H (Negative) Amorphous Sediment Rare H (None) /hpf Urine Mucus Rare H (None) /hpf 02/22/17 02/23/17 02/23/17 Range/Units 20:54 06:36 06:36 RBC 4.16 L (4.30-5.90) m/uL Hgb 11.2 L (13.0-17.5) gm/dL Hct 35.0 L (39.0-53.0) % RDW 17.0 H (11.5-15.5) % Potassium 5.2 H (3.5-5.1) mmol/L Chloride 112 H (98-107) mmol/L Carbon Dioxide 19 L (22-30) mmol/L BUN 31 H (9-20) mg/dL Creatinine 1.80 H (0.66-1.25) mg/dL POC Glucose (mg/dL) 104 H (75-99) mg/dL Albumin 3.4 L (3.5-5.0) g/dL HDL Cholesterol 29 L (40-60) mg/dL Urine Protein (Negative) Urine Glucose (UA) (Negative) Amorphous Sediment (None) /hpf Urine Mucus (None) /hpf Microbiology - Last 24 Hours (Table) 02/22/17 16:15 Urine Culture - Preliminary Urine,Voided Diabetes panel 02/23/17 Range/Units 06:36 Sodium 140 (137-145) mmol/L Potassium 5.2 H (3.5-5.1) mmol/L Chloride 112 H (98-107) mmol/L Carbon Dioxide 19 L (22-30) mmol/L BUN 31 H (9-20) mg/dL Creatinine 1.80 H (0.66-1.25) mg/dL Glucose 98 (74-99) mg/dL Calcium 9.1 (8.4-10.2) mg/dL AST 18 (17-59) U/L ALT 38 (21-72) U/L Alkaline Phosphatase 97 (38-126) U/L Total Protein 6.4 (6.3-8.2) g/dL Albumin 3.4 L (3.5-5.0) g/dL Triglycerides 146 (<150) mg/dL HDL Cholesterol 29 L (40-60) mg/dL Thyroid panel 02/23/17 Range/Units 06:36 TSH 3.450 (0.465-4.680) mIU/L Calcium panel 02/23/17 Range/Units 06:36 Calcium 9.1 (8.4-10.2) mg/dL Albumin 3.4 L (3.5-5.0) g/dL Pituitary panel 02/23/17 Range/Units 06:36 Sodium 140 (137-145) mmol/L Potassium 5.2 H (3.5-5.1) mmol/L Chloride 112 H (98-107) mmol/L Carbon Dioxide 19 L (22-30) mmol/L BUN 31 H (9-20) mg/dL Creatinine 1.80 H (0.66-1.25) mg/dL Glucose 98 (74-99) mg/dL Calcium 9.1 (8.4-10.2) mg/dL TSH 3.450 (0.465-4.680) mIU/L Adrenal panel 02/23/17 Range/Units 06:36 Sodium 140 (137-145) mmol/L Potassium 5.2 H (3.5-5.1) mmol/L Chloride 112 H (98-107) mmol/L Carbon Dioxide 19 L (22-30) mmol/L BUN 31 H (9-20) mg/dL Creatinine 1.80 H (0.66-1.25) mg/dL Glucose 98 (74-99) mg/dL Calcium 9.1 (8.4-10.2) mg/dL Total Bilirubin 0.6 (0.2-1.3) mg/dL AST 18 (17-59) U/L ALT 38 (21-72) U/L Alkaline Phosphatase 97 (38-126) U/L Total Protein 6.4 (6.3-8.2) g/dL Albumin 3.4 L (3.5-5.0) g/dL Assessment and Plan Plan: The chart was reviewed, patient examined and cath films reviewed. The patient has 3 vessel CAD which is assymptomatic at this time. He has severe PVD with bilat lower extremity popliteal distal byspasses in past. Rt side is patent, Lt is occluded with chronic ischemia of Lt lower extremity and chronic open ulceration of left foot. This does not appear infected at this time. Conduit for CABG will be limited; there does appear to be vein available in the Rt thigh. The patient has clubbing of the fingers suggestive of chronic pulmonary disease despite denial of any smoking history. The case was discussed with Dr Astudillo. He does not feel this is a good interventional case. He also recognizes the patient is less than ideal candidate for CABG surgery. We agreed to obtain some testing to further assess the patients operability and reassess tomorrow. Vein mapping, PFTs, and carotid duplex ordered.
[2017-02-22] MEDS: hydrALAZINE HCL 50 MG TAB PO SCH ×2 (15:08→20:36)
[2017-02-22 16:29] LABS: Amorphous Sediment,Urine Rare /hpf; Appearance,Urine Clear (Clear); Bilirubin,Urine Negative (Negative); Glucose,Urine (UA) 2+ (Negative); Ketones,Urine Negative (Negative); Leukocyte Esterase,Urine Negative (Negative); Mucus,Urine Rare /hpf; Nitrite,Urine Negative (Negative); PH, Urine 5.5 (5.0-8.0); Particle Count 448; Protein,Urine 1+ (Negative); RBC,Urine 1 /hpf (0-5); Specific Gravity,Urine 1.019 (1.001-1.035); Squamous Epithelial Cell,Urine <1 /hpf (0-4); UA Billing (MACRO vs. MICRO) MICRO; Urobilinogen,Urine <2.0 mg/dL (<2.0); WBC,Urine 1 /hpf (0-5)
[2017-02-22 17:23] LABS: Glucose,Whole Blood 147 mg/dL (75-99)
--- NOTE | 2017-02-22 19:17 | PN ---
DATE OF SERVICE: 02/22/2017 This 71-year-old gentleman admitted with elevated troponin, acute non-ST segment myocardial infarction underwent cardiac catheterization. The patient has significant coronary artery disease. Cardiothoracic surgery has been consulted. Creatinine is also elevated. Past medical history reviewed. PHYSICAL EXAMINATION: The patient is alert and oriented times three. Pulse 64, blood pressure 120/77, respiratory rate 16, temperature normal, pulse ox 97% on room air. HEENT: Conjunctivae normal. Neck: No jugular venous distention. CARDIOVASCULAR: S1, S2 muffled. RESPIRATORY: Breath sounds diminished in the bases. A few scattered rhonchi. No crackles. ABDOMEN: Soft, nontender. No mass palpable. Obese. LEGS: No edema. No swelling. CENTRAL NERVOUS SYSTEM: Higher functions as mentioned earlier. Moves all four limbs. No focal deficits. LYMPHATICS: No lymph nodes palpable in the neck, axillae or groin. SKIN: No ulcer, rash or bleeding. LABS: WBC 5.0, hemoglobin 10.8. Creatinine is 1.89. ASSESSMENT: 1. Elevated troponin with possible acute non-ST segment elevation myocardial infarction, troponin 0.07 with abnormal stress test status post cardiac catheterization and significant coronary artery disease. 2. Possible old myocardial infarction on the stress test. 3. Accelerated hypertension, possible hypertensive urgency. 4. Renal failure, possibly acute on chronic with chronic kidney disease stage III. 5. Hyperlipidemia. 6. Diabetes type 2 on insulin. 7. 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 8. History of congestive heart failure with chronic diastolic dysfunction, ejection fraction 50% to 55%. 9. History of peripheral artery disease. 10. Chronic left foot osteomyelitis, being followed in the wound clinic in the hyperbaric chamber. 11. History of recent tracheobronchitis. 12. History of diabetic ulcer, Stage IV, on the left foot. 13. History of diabetic retinopathy. 14. History of pulmonary nodule. 15. History of cataracts. 16. History of hearing loss. 17. History of VRE and methicillin-resistant Staphylococcus aureus. 18. History of polymicrobial wound infection. 19. Hyperkalemia. 20. FULL CODE. RECOMMENDATIONS AND DISCUSSION: In this 71-year-old gentleman who presented with multiple complex medical issues, we will monitor the patient closely. Continue the current medications, continue symptomatic treatment, continue with antiplatelet agents. Otherwise, cardiothoracic surgery is evaluating the patient, possible surgery. Prognosis guarded. Closely follow with nephrology and multiple other consultants. Discussed with the patient. Understands and agrees. Further recommendations to follow.
--- NOTE | 2017-02-22 20:19 | PN ---
Patient is seen for followup for acute kidney injury. He did have a cardiac catheterization with Dr. Astudillo for mildly elevated troponin and was found to have severe triple-vessel disease. Patient will be evaluated by Cardiothoracic Surgery. His creatinine has been at about 1.7 to 1.9 mg/dL. He is receiving IV fluids and he has been voiding okay. On examination, blood pressure 123/70, heart rate 64 per minute. Patient is afebrile. HEART: S1 and S2. LUNGS: Bilateral breath sounds are heard. Lower extremities show no evidence of edema. Left foot is currently wrapped. Labs show sodium 139, potassium 5.1, BUN 34, serum creatinine 1.89. Hemoglobin 10.8 g/dL. ASSESSMENT: 1. Chronic kidney disease, [employer] stage 3B with baseline creatinine about 1.7 to 1.9 mg/dL. Etiology is diabetic kidney disease. Renal function currently at baseline. Patient has received IV dye for cardiac catheterization and he is maintained on IV fluids. Will repeat labs in morning. 2. Cardiomyopathy with ejection fraction of 40%. 3. Coronary artery disease, status post cardiac catheterization today with catheterization showing evidence of severe triple vessel disease, being evaluated by Cardiothoracic Surgery. 4. Hyperkalemia on initial admission, currently improved. 5. Hypertension, fairly well controlled. PLAN: Repeat labs in the a.m. Continue to avoid nephrotoxic agents. Discontinue IV fluids once the saline is done. Avoid hypotension. Await Cardiothoracic Surgery input.
[2017-02-22] MEDS: ATORVASTATIN 40 MG TAB PO SCH (20:35)
[2017-02-22] MEDS: FAMOTIDINE 20 MG TAB PO SCH (20:36)
[2017-02-22 20:56] LABS: Glucose,Whole Blood 104 mg/dL (75-99)
[2017-02-22 21:11] VITALS: RESP 18
--- NOTE | 2017-02-23 05:31 | CC ---
DATE OF SERVICE: Mr. Torres is a 71-year-old male with known history of hypertension, hyperlipidemia, diabetes mellitus, history of peripheral vascular disease, who was found to have evidence of non- ST segment elevation myocardial infarction, underwent stress test that was consistent with stress-induced ischemia. In view of that, recommendation was made regarding cardiac catheterization. The procedure as well as the risks and complications were discussed with the patient who is in full understanding and agreement. PROCEDURE: The patient was brought to the lab tech in a fasting semi-sedated state after receiving fentanyl and Benadryl and achieving moderate conscious sedated state. Using Xylocaine anesthesia and Seldinger technique, a 6-Bulgarian sheath was introduced in the right radial artery. Selective right and left coronary angiography was performed using 5-Bulgarian, 4 Bend right Cristian and 5-Bulgarian 3-1/2 Bend left Cristian catheters. Images of the coronary arteries including hemiaxial views were obtained. Following that, a 5-Bulgarian tight pigtail catheter was introduced in the left ventricle and pressures were calculated. Following that, catheter and sheath were removed. Hemostasis was obtained with deployment of a TR band. There was no evidence of immediate complication. The patient was returned to his room in stable condition. Of note, the patient received 5000 units of intravenous heparin as well as intra-arterial verapamil. FINDINGS: LEFT MAIN: This is a short-sized vessel bifurcating into left circumflex, left anterior descending artery. The left main coronary artery is without any significant obstructive disease. LEFT ANTERIOR DESCENDING ARTERY: This is a large-size vessel reaching toward the apex, proximally it has a 20% to 30% plaque. In the mid segment it has an area of stenosis up to 70% to 80%. The rest of the vessel distally is small in caliber. LEFT CIRCUMFLEX: This is a codominant vessel, large in caliber, giving rise to 3 obtuse marginal branches and distally bifurcating into PDA and PLV. The first obtuse marginal branch is the largest in caliber and has a 70% to 80% plaque. The second one has about 90% plaque in the proximal segment. The third obtuse marginal branch has another 90% plaque proximally and after takeoff third obtuse marginal branch there is a 99% stenosis in the left circumflex. RIGHT CORONARY ARTERY: This is a small codominant vessel that is tortuous, moderate in caliber and has a significant obstructive disease in the mid segment up to an 80%. The rest of the vessel has no high-grade stenosis. LEFT VENTRICULOGRAM: Left ventriculogram was not performed. HEMODYNAMICS: There is no gradient across the aortic valve. The left ventricular end-diastolic pressure at 26 to 28 mmHg. CONCLUSION: 1. Severe triple vessel coronary disease. 2. Elevated left ventricular end-diastolic pressure. RECOMMENDATIONS: In view of finding anatomy, I recommend to maximize his medical therapy. I will obtain a surgical consultation to see if he is a candidate for surgical revascularization. Those findings and recommendations were discussed with the patient and his family and are in full understanding and agreement.
--- NOTE | 2017-02-23 05:35 | LTR ---
February 22, 2017 BABS PUGA MD RE: Vladimir Torres Dear Dr. Puga: I had an opportunity to perform cardiac catheterization on Mr. Torres at [facility] on the 22 of February, a full copy of the procedure note will be forwarded to you. In brief, he was found to have severe triple vessel coronary artery disease. In view of that, I have recommended proceeding with evaluation to see if he is a candidate for surgical revascularization. I will keep you updated on his progress. Thank you again for allowing me the opportunity to participate in his care. Please feel free to call for any questions. Sincerely yours, RICO OCAMPO MD
[2017-02-23 05:56] LABS: Glucose,Whole Blood 92 mg/dL (75-99)
[2017-02-23 07:17] LABS: Anisocytosis Slight; Basophils % (A) 1 %; CHCM 32.2; Eosinophils # (A) 0.3 k/uL (0-0.7); Eosinophils % (A) 5 %; HDW 3.31; HGB 11.2 gm/dL (13.0-17.5); Hypochromasia Slight; Luc # (Auto) 0.07; Luc % (Auto) 1; Lymphocytes % (A) 16 %; MCH 26.9 pg (25.0-35.0); MCHC 31.9 g/dL (31.0-37.0); MCV 84.2 fL (80.0-100.0); Mean Platelet Volume 9.4; Monocytes # (A) 0.3 k/uL (0-1.0); Monocytes % (A) 5 %; Neutrophils # (A) 4.2 k/uL (1.3-7.7); Neutrophils % (A) 72 %; RBC 4.16 m/uL (4.30-5.90); WBC 5.8 k/uL (3.8-10.6); WBC (Perox) 6.31
[2017-02-23] MEDS: INSULIN NPH/REG INSULIN 70/30 300 UNIT/3 ML VIAL SQ SCH ×3 (07:17→17:44)
[2017-02-23 07:24] LABS: Partial Thromboplastin Time 27.4 sec (22.0-30.0)
[2017-02-23 07:39] LABS: ALT 38 U/L (21-72); AST 18 U/L (17-59); Alkaline Phosphatase 97 U/L (38-126); Anion Gap 9 mmol/L; Blood Urea Nitrogen 31 mg/dL (9-20); Calcium 9.1 mg/dL (8.4-10.2); Carbon Dioxide 19 mmol/L (22-30); Chloride 112 mmol/L (98-107); Cholesterol 112 mg/dL (<200); Glucose 98 mg/dL (74-99); HDL Cholesterol 29 mg/dL (40-60); Non-African American GFR(MDRD) 38 (>60 ml/min/1.73 sqM); Potassium 5.2 mmol/L (3.5-5.1); Sodium 140 mmol/L (137-145); Total Bilirubin 0.6 mg/dL (0.2-1.3); Total Protein 6.4 g/dL (6.3-8.2); Triglycerides 146 mg/dL (<150)
[2017-02-23 08:03] LABS: Hepatitis B Surface Ag Index 0.07
[2017-02-23 08:09] LABS: Hepatitis B Core IgM Index 0.04
--- NOTE | 2017-02-23 08:12 | US ---
EXAMINATION TYPE: US carotid duplex BILAT DATE OF EXAM: 02/22/2017 4:59 PM COMPARISON: NONE CLINICAL HISTORY: Pre-op EXAM MEASUREMENTS: RIGHT: Peak Systolic Velocity (PSV) cm/sec ----- Right CCA: 52.6 ----- Right ICA: 170.1 ----- Right ECA: 107.1 ICA/CCA ratio: 3.2 RIGHT: End Diastole cm/sec ----- Right CCA: 7.6 ----- Right ICA: 41.3 ----- Right ECA: 0.0 LEFT: Peak Systolic Velocity (PSV) cm/sec ----- Left CCA: 84.2 ----- Left ICA: 102.5 ----- Left ECA: 163.7 ICA/CCA ratio: 1.2 LEFT: End Diastole cm/sec ----- Left CCA: 13.8 ----- Left ICA: 30.9 ----- Left ECA: 0.0 VERTEBRALS (direction of flow): Right Vertebral: Antegrade Left Vertebral: Antegrade Right ICA shows mild to severe atherosclerotic changes with moderate velocity elevations, no signifi cant velocity elevations seen on left IMPRESSION: 1. 50-69% by diameter stenosis of the proximal right ICA. 2. Elevated flow, left ECA. Criteria for Assigning % of Stenosis / Diameter reduction (Estimation based on the indirect measurements of the internal carotid artery velocities (ICA PSV). 1. Normal (no stenosis)=ICA PSV < 125 cm/s: ratio < 2.0: ICA EDV<40 cm/s. 2. Less than 50% stenosis=ICA PSV < 125 cm/s: ratio < 2.0: ICA EDV<40 cm/s. 3. 50 to 69% stenosis=ICA PSV of 125 to 230 cm/s: ration 2.0 ? 4.0: ICA EDV 40-100 cm/s. 4. Greater than 70% stenosis to near occlusion= ICA PSV > 230 cm/s: ratio > 4.0: ICA EDV > 100 cm/s. 5. Near occlusion= ICA PSV velocities may be low or undetectable: variable ratio and ICA EDV. 6. Total occlusion=unable to detect flow.
[2017-02-23 08:20] LABS: Hepatitis C Virus IgG Index 0.04
[2017-02-23 08:28] LABS: Hepatitis C Virus IgG Ab Negative (Negative)
[2017-02-23] MEDS: HEPARIN SODIUM,PORCINE 5,000 UNIT/ML 1 ML VIAL SQ SCH (08:46)
[2017-02-23] MEDS: METOPROLOL TARTRATE 50 MG TAB PO SCH (08:47)
[2017-02-23] MEDS: hydrALAZINE HCL 50 MG TAB PO SCH ×2 (08:47→17:40)
[2017-02-23] MEDS: ASPIRIN 81 MG CHEW PO SCH (08:47)
[2017-02-23] MEDS: ISOSORBIDE MONONITRATE ER 30 MG TAB.ER.24H PO SCH (08:48)
[2017-02-23] MEDS ORDERED: cloNIDine HCL 0.1 MG TAB PO SCH (09:00)
--- NOTE | 2017-02-23 09:49 | P.PN ---
<Mary Ann Acosta - Last Filed: 02/23/17 09:44> Subjective Principal diagnosis: coronary artery disease, questionable non-STEMI with slightly elevated troponins Patient currently sitting up in bed in no apparent distress. Denies any chest pain/shortness of breath. Objective - Vital Signs Vital signs: Vital Signs Temp 97.2 F L 02/23/17 08:00 Pulse 82 02/23/17 08:00 Resp 18 02/23/17 08:00 BP 158/99 02/23/17 08:00 Pulse Ox 98 02/23/17 08:00 Intake & Output 02/22/17 02/23/17 02/23/17 18:59 06:59 18:59 Intake Total 2070 240 Output Total 1050 Balance 1020 240 Weight 103.9 kg Intake: IV 50 Intake, IV Titration 1300 240 Amount Sodium Chloride 0.9% 1, 1300 240 000 ml @ 100 mls/hr IV . Q10H [facility] Rx#:[id number] Oral 720 Output: Urine 1050 Other: Voiding Method Toilet Toilet # Voids 1 # Bowel Movements 1 - Constitutional General appearance: Present: cooperative, no acute distress - Respiratory Details: Lungs sounds diminished bilaterally. Respirations even, nonlabored. Currently on room air. - Cardiovascular Details: S1, S2 present. Regular rate and rhythm, normal sinus rhythm on telemetry. No edema present. - Gastrointestinal Gastrointestinal Comment(s): Abdomen soft, nontender, nondistended. Active bowel sounds 4 quadrants. Tolerating diet. - Genitourinary Genitourinary Comment(s): Continues to void clear, yellow urine per urinal. - Integumentary Integumentary Comment(s): Amputations present right foot third toe, left foot second and third toe with diabetic ulcer present left lateral foot. - Musculoskeletal Musculoskeletal: Present: gait normal, strength equal bilaterally - Psychiatric Psychiatric: Present: A&O x's 3, appropriate affect, intact judgment & insight - Allied health notes Allied health notes reviewed: nursing - Labs CBC & Chem 7: 02/23/17 06:36 02/23/17 06:36 Labs: Abnormal Lab Results - Last 24 Hours (Table) 02/22/17 02/22/17 02/22/17 Range/Units 11:44 16:15 17:21 RBC (4.30-5.90) m/uL Hgb (13.0-17.5) gm/dL Hct (39.0-53.0) % RDW (11.5-15.5) % Potassium (3.5-5.1) mmol/L Chloride (98-107) mmol/L Carbon Dioxide (22-30) mmol/L BUN (9-20) mg/dL Creatinine (0.66-1.25) mg/dL POC Glucose (mg/dL) 158 H 147 H (75-99) mg/dL Albumin (3.5-5.0) g/dL HDL Cholesterol (40-60) mg/dL Urine Protein 1+ H (Negative) Urine Glucose (UA) 2+ H (Negative) Amorphous Sediment Rare H (None) /hpf Urine Mucus Rare H (None) /hpf 02/22/17 02/23/17 02/23/17 Range/Units 20:54 06:36 06:36 RBC 4.16 L (4.30-5.90) m/uL Hgb 11.2 L (13.0-17.5) gm/dL Hct 35.0 L (39.0-53.0) % RDW 17.0 H (11.5-15.5) % Potassium 5.2 H (3.5-5.1) mmol/L Chloride 112 H (98-107) mmol/L Carbon Dioxide 19 L (22-30) mmol/L BUN 31 H (9-20) mg/dL Creatinine 1.80 H (0.66-1.25) mg/dL POC Glucose (mg/dL) 104 H (75-99) mg/dL Albumin 3.4 L (3.5-5.0) g/dL HDL Cholesterol 29 L (40-60) mg/dL Urine Protein (Negative) Urine Glucose (UA) (Negative) Amorphous Sediment (None) /hpf Urine Mucus (None) /hpf Microbiology - Last 24 Hours (Table) 02/22/17 16:15 Urine Culture - Preliminary Urine,Voided - Imaging and Cardiology PFT, right lower extremity vein mapping results reviewed. Carotids pending. 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 Continue aspirin, Lipitor, Lopressor. Resume ARB okay with nephrology. 2. Blood pressure control with current medications. 3. Diabetic management per primary care service. 4. 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 5. Will review preoperative testing results with Dr. London and make determination as to benefits versus risk of surgical revascularization. Will discuss with patient. Time with Patient: Greater than 30 <Vlad London R - Last Filed: 02/23/17 12:09> Objective - Vital Signs Vital signs: Vital Signs Temp 98.7 F 02/23/17 11:43 Pulse 65 02/23/17 11:43 Resp 18 02/23/17 11:43 BP 141/81 02/23/17 11:43 Pulse Ox 97 02/23/17 11:43 Intake & Output 02/22/17 02/23/17 02/23/17 18:59 06:59 18:59 Intake Total 2070 240 240 Output Total 1050 Balance 1020 240 240 Weight 103.9 kg 103.9 kg Intake: IV 50 Intake, IV Titration 1300 240 Amount Sodium Chloride 0.9% 1, 1300 240 000 ml @ 100 mls/hr IV . Q10H [facility] Rx#:[id number] Oral 720 240 Output: Urine 1050 Other: Voiding Method Toilet Toilet Toilet # Voids 1 # Bowel Movements 1 - Labs CBC & Chem 7: 02/23/17 06:36 02/23/17 06:36 Labs: Abnormal Lab Results - Last 24 Hours (Table) 02/22/17 02/22/17 02/22/17 Range/Units 16:15 17:21 20:54 RBC (4.30-5.90) m/uL Hgb (13.0-17.5) gm/dL Hct (39.0-53.0) % RDW (11.5-15.5) % Potassium (3.5-5.1) mmol/L Chloride (98-107) mmol/L Carbon Dioxide (22-30) mmol/L BUN (9-20) mg/dL Creatinine (0.66-1.25) mg/dL POC Glucose (mg/dL) 147 H 104 H (75-99) mg/dL Albumin (3.5-5.0) g/dL HDL Cholesterol (40-60) mg/dL Urine Protein 1+ H (Negative) Urine Glucose (UA) 2+ H (Negative) Amorphous Sediment Rare H (None) /hpf Urine Mucus Rare H (None) /hpf 02/23/17 02/23/17 Range/Units 06:36 06:36 RBC 4.16 L (4.30-5.90) m/uL Hgb 11.2 L (13.0-17.5) gm/dL Hct 35.0 L (39.0-53.0) % RDW 17.0 H (11.5-15.5) % Potassium 5.2 H (3.5-5.1) mmol/L Chloride 112 H (98-107) mmol/L Carbon Dioxide 19 L (22-30) mmol/L BUN 31 H (9-20) mg/dL Creatinine 1.80 H (0.66-1.25) mg/dL POC Glucose (mg/dL) (75-99) mg/dL Albumin 3.4 L (3.5-5.0) g/dL HDL Cholesterol 29 L (40-60) mg/dL Urine Protein (Negative) Urine Glucose (UA) (Negative) Amorphous Sediment (None) /hpf Urine Mucus (None) /hpf Microbiology - Last 24 Hours (Table) 02/22/17 16:15 Urine Culture - Preliminary Urine,Voided Assessment and Plan Plan: Studies reviewed: PFTs show significant COPD with FEV1 59% prodicted. Carotid duplex mild disease. Rt LE venous mapping shows very large vein in high thigh, reaasonable vein mid thigh to knee. Below this, vein has been used for arterial bypass graft. Overall, risk for CABG is quite hig, at least 5-10% mortality, secondary to: COPD, CRI, PVD, limited performance status and limited conduit. Discussed with Dr Astudillo. Plan medical management at present.
[2017-02-23 12:08] LABS: Glucose,Whole Blood 160 mg/dL (75-99)
[2017-02-23 12:11] VITALS: BMI 28.6
--- NOTE | 2017-02-23 12:52 | PN ---
The patient is seen for followup for chronic kidney disease. He is currently awaiting decision from cardiothoracic surgery. On examination, the patient is comfortable. Blood pressure 141/81, heart rate 65 per minute. He is afebrile. Examination reveals patient is euvolemic, with no evidence of edema lower extremities. Left foot is currently wrapped. Labs show sodium 140, potassium 5.2, chloride 112, BUN 31, serum creatinine of 1.8 mg/dL. ASSESSMENT: 1. Chronic kidney disease, NKF stage IIIB secondary to diabetic kidney disease. Renal function stable after cardiac catheterization. Patient did receive IV fluids. 2. Cardiomyopathy with ejection fraction of about 40%. 3. Coronary artery disease, status post cardiac catheterization, which showed triple vessel disease. The patient is status post evaluation by cardiothoracic surgery, awaiting final decision. 4. Mild hyperkalemia, fairly stable. 5. Hypertension, controlled. PLAN: Maintain patient on low potassium diet. It is okay to proceed with coronary artery bypass surgery from nephrology standpoint. At this time, his potassium is on the higher side; therefore, we need to be careful with restarting angiotensin receptor blockers.
[2017-02-23 15:18] VITALS: BP 149/79; PULSE 70; TEMP 97.7
--- NOTE | 2017-02-23 15:20 | P.PN ---
Subjective Principal diagnosis: Abnormal troponins This is a 71-year-old gentleman with known history of hypertension, diabetes, hyperlipidemia, who was in the hyperbarek chamber receiving treatment for a nonhealing ulcer to the left foot, while they're patient was noted to have a significantly elevated blood pressure and for this reason was sent to the emergency room for further evaluation. Patient was also noted to have mildly abnormal troponins which could be secondary to abnormal renal function. Patient underwent a stress test, nuclear portion suggested pharmacologically induced left ventricular myocardial ischemia. patient underwent a cardiac catheterization yesterday by Dr. Astudillo which revealed severe triple-vessel coronary artery disease. Patient was seen in consultation by cardiothoracic surgery and felt to be a increased risk to undergo surgery at this time. We will maximize medical therapy, if the patient has breakthrough angina in spite of maximum medical therapy reek consideration for bypass will then be considered. He feels well today, denies any chest pain or difficulty in breathing. He's been up ambulating without any difficulty. Objective - Vital Signs Vital signs: Vital Signs Temp 98.7 F 02/23/17 11:43 Pulse 65 02/23/17 11:43 Resp 18 02/23/17 11:43 BP 141/81 02/23/17 11:43 Pulse Ox 97 02/23/17 11:43 Intake & Output 02/22/17 02/23/17 02/23/17 18:59 06:59 18:59 Intake Total 2070 240 240 Output Total 1050 Balance 1020 240 240 Weight 103.9 kg 103.9 kg Intake: IV 50 Intake, IV Titration 1300 240 Amount Sodium Chloride 0.9% 1, 1300 240 000 ml @ 100 mls/hr IV . Q10H [facility] Rx#:[id number] Oral 720 240 Output: Urine 1050 Other: Voiding Method Toilet Toilet Toilet # Voids 1 # Bowel Movements 1 - Exam PHYSICAL EXAMINATION: HEENT: Head is atraumatic, normocephalic. Pupils equal, round. Neck is supple. There is no elevated jugular venous pressure. HEART EXAMINATION: Heart S1, S2 normal. No murmur or gallop heard. CHEST EXAMINATION: Lungs are clear to auscultation and precussion. No chest wall tenderness is noted on palpation or with deep breathing. ABDOMEN: Soft, nontender. Bowel sounds are heard. No organomegaly noted.right radial site clean and dry, good distal pulse. EXTREMITIES: 2+ peripheral pulses with no evidence of peripheral edema and no calf tenderness noted. Dressing in place to the right foot. NEUROLOGIC patient is awake, alert and oriented -3. . - Labs CBC & Chem 7: 02/23/17 06:36 02/23/17 06:36 Labs: Abnormal Lab Results - Last 24 Hours (Table) 02/22/17 02/22/17 02/22/17 Range/Units 16:15 17:21 20:54 RBC (4.30-5.90) m/uL Hgb (13.0-17.5) gm/dL Hct (39.0-53.0) % RDW (11.5-15.5) % Potassium (3.5-5.1) mmol/L Chloride (98-107) mmol/L Carbon Dioxide (22-30) mmol/L BUN (9-20) mg/dL Creatinine (0.66-1.25) mg/dL POC Glucose (mg/dL) 147 H 104 H (75-99) mg/dL Albumin (3.5-5.0) g/dL HDL Cholesterol (40-60) mg/dL Urine Protein 1+ H (Negative) Urine Glucose (UA) 2+ H (Negative) Amorphous Sediment Rare H (None) /hpf Urine Mucus Rare H (None) /hpf 02/23/17 02/23/17 02/23/17 Range/Units 06:36 06:36 11:47 RBC 4.16 L (4.30-5.90) m/uL Hgb 11.2 L (13.0-17.5) gm/dL Hct 35.0 L (39.0-53.0) % RDW 17.0 H (11.5-15.5) % Potassium 5.2 H (3.5-5.1) mmol/L Chloride 112 H (98-107) mmol/L Carbon Dioxide 19 L (22-30) mmol/L BUN 31 H (9-20) mg/dL Creatinine 1.80 H (0.66-1.25) mg/dL POC Glucose (mg/dL) 160 H (75-99) mg/dL Albumin 3.4 L (3.5-5.0) g/dL HDL Cholesterol 29 L (40-60) mg/dL Urine Protein (Negative) Urine Glucose (UA) (Negative) Amorphous Sediment (None) /hpf Urine Mucus (None) /hpf Microbiology - Last 24 Hours (Table) 02/22/17 16:15 Urine Culture - Preliminary Urine,Voided Assessment and Plan (1) Elevated troponin Status: Acute (2) Renal failure, acute on chronic Status: Acute (3) Diabetes Status: Chronic (4) Diabetic foot ulcer Status: Chronic (5) HTN (hypertension) Status: Chronic (6) Hyperlipemia Status: Chronic (7) 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 We will make him a follow-up appointment to see Dr. Jo post discharge.patient will be discharged home on aspirin 81 mg daily, Lipitor 40 mg daily,hydralazine 50 mg by mouth 3 times a day and clonidine 0.1 mg daily.we will also give the patient sublingual nitroglycerin as needed for chest pain. DNP note has been reviewed, I agree with a documented findings and plan of care. Patient was seen and examined.
[2017-02-23 17:17] LABS: Glucose,Whole Blood 114 mg/dL (75-99)
--- NOTE | 2017-02-23 20:45 | P.PN ---
Subjective Principal diagnosis: hypertension Pleasant 71-year-old male well-known to service because of his care in the wound healing Center for his complex left diabetic foot infection. The recently hospitalized for about a congestive heart failure. He was improving and doing somewhat better. However developed a bout of accelerated hypertension and was hospitalized. Workup has ensued and is now been seen by cardiology and there is evidence of prior myocardial infarction and evidence of some ischemic change on his stress test. The patient is having worsening of his baseline chronic kidney disease and cardiac catheterization is on hold at this point in time until there is improvement of his renal status. Request for wound care and further input at this time. Patient is feeling considerably better than before. When he has hypertension he relates that he was not having any chest pain at all when he was feeling a bit poorly. This is now resolved. Cardiology is following. The cardiac catheterization was markedly abnormal. As noted likely will need coronary artery bypass grafting procedure. He has been seen by cardiac thoracic surgery. The patient's been deemed a poor candidate at this point in time for elective revascularization. He has poor harvest vessels. He has chronic kidney disease which would give him significant surgical mortality. Consequently maximize medical therapy is requested. Objective - Vital Signs Vital signs: Vital Signs Temp 97.7 F 02/23/17 15:16 Pulse 70 02/23/17 16:00 Resp 18 02/23/17 16:00 BP 149/79 02/23/17 15:16 Pulse Ox 98 02/23/17 15:16 Intake & Output 02/23/17 02/23/17 02/24/17 06:59 18:59 06:59 Intake Total 240 240 Output Total 1000 Balance 240 -760 Weight 103.9 kg 103.9 kg Intake: Intake, IV Titration 240 Amount Sodium Chloride 0.9% 1, 240 000 ml @ 100 mls/hr IV . Q10H [facility] Rx#:[id number] Oral 240 Output: Urine 1000 Other: Voiding Method Toilet Toilet # Voids 2 # Bowel Movements 1 - Exam Gen: This is a 71-year-old male. He is sitting up in bed and appears to be in no acute distress. No respiratory distress noted at rest. HEENT: Head is atraumatic, normocephalic. Pupils equal, round. Sclerae is anicteric. NECK: Supple. No JVD. No lymphadenopathy. No thyromegaly. LUNGS: Diminished to the bases. Clear to auscultation. No wheezes or rhonchi. No intercostal retractions. HEART: Regular rate and rhythm. No murmur. ABDOMEN: Soft. Bowel sounds are present. No masses. No tenderness. EXTREMITIES: Dorsalis pedis is palpable bilaterally. Patient has noted amputation on the right foot that is old and healed. Patient has amputation of the great toe and third toe oh which wounds are healed. There is a wound to the amputation site on the second toe and on the lateral metatarsal. Please see the nursing photography for measurements NEUROLOGICAL: Patient is awake, alert and oriented x3. No gross focal sensory motor deficits are noted - Labs CBC & Chem 7: 02/23/17 06:36 02/23/17 06:36 Labs: Abnormal Lab Results - Last 24 Hours (Table) 02/22/17 02/23/17 02/23/17 Range/Units 20:54 06:36 06:36 RBC 4.16 L (4.30-5.90) m/uL Hgb 11.2 L (13.0-17.5) gm/dL Hct 35.0 L (39.0-53.0) % RDW 17.0 H (11.5-15.5) % Potassium 5.2 H (3.5-5.1) mmol/L Chloride 112 H (98-107) mmol/L Carbon Dioxide 19 L (22-30) mmol/L BUN 31 H (9-20) mg/dL Creatinine 1.80 H (0.66-1.25) mg/dL POC Glucose (mg/dL) 104 H (75-99) mg/dL Albumin 3.4 L (3.5-5.0) g/dL HDL Cholesterol 29 L (40-60) mg/dL 02/23/17 02/23/17 Range/Units 11:47 17:05 RBC (4.30-5.90) m/uL Hgb (13.0-17.5) gm/dL Hct (39.0-53.0) % RDW (11.5-15.5) % Potassium (3.5-5.1) mmol/L Chloride (98-107) mmol/L Carbon Dioxide (22-30) mmol/L BUN (9-20) mg/dL Creatinine (0.66-1.25) mg/dL POC Glucose (mg/dL) 160 H 114 H (75-99) mg/dL Albumin (3.5-5.0) g/dL HDL Cholesterol (40-60) mg/dL Microbiology - Last 24 Hours (Table) 02/22/17 16:15 Urine Culture - Final Urine,Voided Laboratory Results WBC 5.8 k/uL (3.8-10.6) 02/23/17 06:36 RBC 4.16 m/uL (4.30-5.90) L 02/23/17 06:36 Hgb 11.2 gm/dL (13.0-17.5) L 02/23/17 06:36 Hct 35.0 % (39.0-53.0) L 02/23/17 06:36 MCV 84.2 fL (80.0-100.0) 02/23/17 06:36 MCH 26.9 pg (25.0-35.0) 02/23/17 06:36 MCHC 31.9 g/dL (31.0-37.0) 02/23/17 06:36 RDW 17.0 % (11.5-15.5) H 02/23/17 06:36 Plt Count 217 k/uL (150-450) 02/23/17 06:36 Neutrophils % 72 % 02/23/17 06:36 Neutrophils % (Manual) 68.0 % 02/18/17 02:04 Lymphocytes % 16 % 02/23/17 06:36 Lymphocytes % (Manual) 17.0 % 02/18/17 02:04 Monocytes % 5 % 02/23/17 06:36 Monocytes % (Manual) 14.0 % 02/18/17 02:04 Eosinophils % 5 % 02/23/17 06:36 Eosinophils % (Manual) 1.0 % 02/18/17 02:04 Basophils % 1 % 02/23/17 06:36 Neutrophils # 4.2 k/uL (1.3-7.7) 02/23/17 06:36 Neutrophils # (Manual) 3.0 k/uL (1.3-7.7) 02/18/17 02:04 Lymphocytes # 1.0 k/uL (1.0-4.8) 02/23/17 06:36 Lymphocytes # (Manual) 0.7 k/uL (1.0-4.8) L 02/18/17 02:04 Monocytes # 0.3 k/uL (0-1.0) 02/23/17 06:36 Monocytes # (Manual) 0.6 k/uL (0-1.0) 02/18/17 02:04 Eosinophils # 0.3 k/uL (0-0.7) 02/23/17 06:36 Eosinophils # (Manual) 0.0 k/uL (0-0.7) 02/18/17 02:04 Basophils # 0.0 k/uL (0-0.2) 02/23/17 06:36 Nucleated RBCs 0 /100 WBC (0-0) 02/18/17 02:04 Manual Slide Review Performed 02/18/17 02:04 Hypochromasia Slight 02/23/17 06:36 Poikilocytosis Slight 02/20/17 06:54 Anisocytosis Slight 02/23/17 06:36 PT 10.0 sec (9.0-12.0) 02/23/17 06:36 INR 1.0 (<1.1) 02/23/17 06:36 APTT 27.4 sec (22.0-30.0) 02/23/17 06:36 Sodium 140 mmol/L (137-145) 02/23/17 06:36 Potassium 5.2 mmol/L (3.5-5.1) H 02/23/17 06:36 Chloride 112 mmol/L (98-107) H 02/23/17 06:36 Carbon Dioxide 19 mmol/L (22-30) L 02/23/17 06:36 Anion Gap 9 mmol/L 02/23/17 06:36 BUN 31 mg/dL (9-20) H 02/23/17 06:36 Creatinine 1.80 mg/dL (0.66-1.25) H 02/23/17 06:36 Est GFR (MDRD) Af Amer 46 (>60 ml/min/1.73 sqM) 02/23/17 06:36 Est GFR (MDRD) Non-Af 38 (>60 ml/min/1.73 sqM) 02/23/17 06:36 Glucose 98 mg/dL (74-99) 02/23/17 06:36 POC Glucose (mg/dL) 114 mg/dL (75-99) H 02/23/17 17:05 POC Glu Group Burner Machine ID Andreia Leone 02/23/17 17:[address] Glu mg/dL 171 mg/dL 02/18/17 02:04 Hemoglobin A1c 7.6 % (4.2-6.1) H 02/18/17 02:04 Calcium 9.1 mg/dL (8.4-10.2) 02/23/17 06:36 Magnesium 2.0 mg/dL (1.6-2.3) 02/23/17 06:36 Total Bilirubin 0.6 mg/dL (0.2-1.3) 02/23/17 06:36 AST 18 U/L (17-59) 02/23/17 06:36 ALT 38 U/L (21-72) 02/23/17 06:36 Alkaline Phosphatase 97 U/L (38-126) 02/23/17 06:36 Troponin I 0.069 ng/mL (0.000-0.034) H* 02/18/17 05:31 NT-Pro-B Natriuret Pep 4790 pg/mL 02/23/17 06:36 Total Protein 6.4 g/dL (6.3-8.2) 02/23/17 06:36 Albumin 3.4 g/dL (3.5-5.0) L 02/23/17 06:36 Triglycerides 146 mg/dL (<150) 02/23/17 06:36 Cholesterol 112 mg/dL (<200) 02/23/17 06:36 LDL Cholesterol, Calc 54 mg/dL (0-99) 02/23/17 06:36 HDL Cholesterol 29 mg/dL (40-60) L 02/23/17 06:36 TSH 3.450 mIU/L (0.465-4.680) 02/23/17 06:36 Urine Color Light Yellow 02/22/17 16:15 Urine Appearance Clear (Clear) 02/22/17 16:15 Urine pH 5.5 (5.0-8.0) 02/22/17 16:15 Ur Specific [place] 1.019 (1.001-1.035) 02/22/17 16:15 Urine Protein 1+ (Negative) H 02/22/17 16:15 Urine Glucose (UA) 2+ (Negative) H 02/22/17 16:15 Urine Ketones Negative (Negative) 02/22/17 16:15 Urine Blood Negative (Negative) 02/22/17 16:15 Urine Nitrite Negative (Negative) 02/22/17 16:15 Urine Bilirubin Negative (Negative) 02/22/17 16:15 Urine Urobilinogen <2.0 mg/dL (<2.0) 02/22/17 16:15 Ur Leukocyte Esterase Negative (Negative) 02/22/17 16:15 Urine RBC 1 /hpf (0-5) 02/22/17 16:15 Urine WBC 1 /hpf (0-5) 02/22/17 16:15 Ur Squamous Epith Cells <1 /hpf (0-4) 02/22/17 16:15 Amorphous Sediment Rare /hpf (None) H 02/22/17 16:15 Urine Mucus Rare /hpf (None) H 02/22/17 16:15 Hepatitis A IgM Ab NEGATIVE 02/23/17 06:36 Hep Bs Antigen Negative 02/23/17 06:36 Hep B Core IgM Ab NEGATIVE 02/23/17 06:36 Hep C IgG Ab Negative (Negative) 02/23/17 06:36 Microbiology 02/22/17 16:15 Urine,Voided Urine Culture - Final Assessment and Plan (1) Renal failure, acute on chronic Status: Acute (2) 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 At admission there was concerns to myocardial infarction and workup has been done. There is evidence of some prior myocardial damage by his Lexiscan test. Cardiology is following however with his acute on chronic renal failure will not be proceeding with cardiac catheterization at this point in time. Goal is to have him have some outpatient treatment and his creatinine improves then do an outpatient cardiac cath and possibly stenting. The patient is quite asymptomatic at this time. His blood pressure is better controlled He is denying any other new symptoms. Silver dressing is requested to the ulcers of his foot. Continue to elevate and offload that foot. Follow-up in the wound healing center as before patient's is instructed to call the Center for the follow-up. He is being discharged home today. With the current cardiac issues would not be a candidate for further hyperbaric oxygen therapy . Antibiotic therapy with moxifloxacin was discontinued. Oral doxycycline 100 mg twice per day is sent to the pharmacy. Follow-up in Center next week. Status: Acute (3) Hypertensive emergency Status: Acute
--- NOTE | 2017-02-24 11:19 | DS ---
DATE OF ADMISSION: 02/17/2017 DATE OF DISCHARGE: 02/23/2017 FINAL DIAGNOSES: 1. Elevated troponin with possible acute non-ST segment elevated myocardial infarction with abnormal stress test and status post cardiac catheterization and significant coronary artery disease. 2. Possibly myocardial infarction on the stress test. 3. Accelerated hypertension, possible hypertensive urgency. 4. Renal failure, possible acute on chronic renal failure and chronic kidney disease stage III. 5. Hyperlipidemia. 6. Diabetes type 1, on insulin. 7. 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 8. History of congestive heart failure with chronic diastolic dysfunction, ejection fraction 50% to 55%. 9. History of peripheral artery disease. 10. Chronic left foot osteomyelitis, being followed with [facility] and hyperbaric chamber. 11. History of recent tracheobronchitis. 12. History of diabetic ulcer stage IV on the left foot. 13. History of diabetic retinopathy. 14. History of pulmonary nodules. 15. History of cataracts. 16. History hearing loss. 17. 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 18. History of polymicrobial wound infection. 19. History of hyperkalemia. 20. FULL CODE. DISCHARGE DISPOSITION: The patient will be discharged in a stable condition with guarded prognosis. TOTAL TIME TAKEN: 35 minutes. HISTORY OF PRESENT ILLNESS: This 71-year-old gentleman admitted with a past medical history of multiple medical problems, vasovagal one side, being followed by Dr. Jack De Jesus in the outpatient setting, admitted with the elevated troponin with features of acute non-ST segment elevation myocardial infarction and multiple other complex medical issues as mentioned earlier. Patient treated conservatively, seen by Cardiology and Nephrology and as well as Cardiothoracic Surgery. The patient underwent ultrasound of the kidneys and subsequently cardiac catheterization. Creatinine was elevated. Cardiac cath showed significant coronary artery disease. Please refer to Dr. Astudillo's detailed reports for further information. CABG was recommended. Dr. London evaluated the patient and thought the overall risk for CABG was quite high about 5% to 10% mortality secondary to COPD, renal disease, peripheral vascular disease and limited performance status and limited conduit. I was decided to continue with medical management presently. On exam, vitals are stable. CARDIOVASCULAR SYSTEM: S1, S2, muffled. ABDOMEN: Soft. NERVOUS SYSTEM: No focal deficits. DISCHARGE ADVICE: 1. Diet is cardiac, renal. 2. Activity limited until followup. 3. Follow up with Dr. De Jesus in 2 to 3 days. 4. Follow up with Dr. Murillo as advised. 5. Follow up with Dr. Koenig as advised. 6. Follow up with Dr. Cowart as recommended. The medications will be: 1. Aspirin 81 mg p.o. daily. 2. Lipitor 10 mg q.h.s. 3. Pepcid 20 mg q.h.s. 4. Humulin 70/30 twenty-five units subQ a.c. t.i.d. 5. Imdur ER 30 mg p.o. daily. 6. Lopressor 100 mg p.o. b.i.d. 7. Nitro 0.4 sublingual p.r.n. 8. Catapres 0.1 b.i.d. 9. Apresoline 50 mg p.o. t.i.d. Once again, the patient discharged in stable condition with guarded prognosis.
--- NOTE | 2017-03-02 12:18 | P.VSCSTY ---
Greater Saphenous Vein Mapping This is bilateral lower extremity greater saphenous vein mapping. Date of service 02/22/2017 Vein quality and ultrasound appearance previously harvested left leg.. Vein size groin right 6.7 x 6.5 groin left [ ] High thigh right 9.0 x 6.5 high thigh left [ ] Mid thigh right 4.7 x 3.6 mid thigh left [ ] Above-knee right 5.7 x 4.2 above- knee left [ ] Below knee right 4.6 x 3.0 below-knee left [] Mid calf right 6.5 x 4.2 mid calf left [] Ankle right 8.1 x 4.7 ankle left [] Impression suspect usable vein right leg. Midportion is better size match. High thigh and ankle are probably significantly too large.
== END 2017-02-23 19:18 | disposition home or self-care (01) | DRG 281 ==
LOC: EC 15:32 → 6SEL 19:07
PROVIDERS: ADMIT Hospitalist; ATTEND Hospitalist
PROC: C22G1ZZ Tomographic (Tomo) Nuclear Medicine Imaging of Myocardium using Technetium 99m (Tc-99m) (ICD-10-PCS; 2017-02-18)
PROC: 4A12XM4 Monitoring of Cardiac Stress, External Approach (ICD-10-PCS; 2017-02-18)
PROC: 3E033HZ Introduction of Radioactive Substance into Peripheral Vein, Percutaneous Approach (ICD-10-PCS; 2017-02-18)
PROC: B2111ZZ Fluoroscopy of Multiple Coronary Arteries using Low Osmolar Contrast (ICD-10-PCS; 2017-02-22)
PROC: B2151ZZ Fluoroscopy of Left Heart using Low Osmolar Contrast (ICD-10-PCS; 2017-02-22)
PROC: 4A09X1Z Measurement of Respiratory Capacity, External Approach (ICD-10-PCS; 2017-02-22)
PROC: 4A023N7 Measurement of Cardiac Sampling and Pressure, Left Heart, Percutaneous Approach (ICD-10-PCS; principal; 2017-02-22 09:22)
DX: I21.4 Non-ST elevation (NSTEMI) myocardial infarction (principal); N17.9 Acute kidney failure, unspecified; E87.2 Acidosis; I50.32 Chronic diastolic (congestive) heart failure; M86.672 Other chronic osteomyelitis, left ankle and foot; I13.0 Hypertensive heart and chronic kidney disease with heart failure and stage 1 through stage 4 chronic kidney disease, or unspecified chronic kidney disease; E10.52 Type 1 diabetes mellitus with diabetic peripheral angiopathy with gangrene; I16.1 Hypertensive emergency; I42.9 Cardiomyopathy, unspecified; E10.21 Type 1 diabetes mellitus with diabetic nephropathy; E87.5 Hyperkalemia; E10.22 Type 1 diabetes mellitus with diabetic chronic kidney disease; I25.10 Atherosclerotic heart disease of native coronary artery without angina pectoris; I16.0 Hypertensive urgency; N18.3 Chronic kidney disease, stage 3 (moderate); E78.5 Hyperlipidemia, unspecified; E10.319 Type 1 diabetes mellitus with unspecified diabetic retinopathy without macular edema; E10.621 Type 1 diabetes mellitus with foot ulcer; L08.9 Local infection of the skin and subcutaneous tissue, unspecified; L97.523 Non-pressure chronic ulcer of other part of left foot with necrosis of muscle; T46.5X5A Adverse effect of other antihypertensive drugs, initial encounter; I25.2 Old myocardial infarction; R91.8 Other nonspecific abnormal finding of lung field; E10.628 Type 1 diabetes mellitus with other skin complications; E10.42 Type 1 diabetes mellitus with diabetic polyneuropathy; E10.69 Type 1 diabetes mellitus with other specified complication; I83.91 Asymptomatic varicose veins of right lower extremity; M19.90 Unspecified osteoarthritis, unspecified site; J44.9 Chronic obstructive pulmonary disease, unspecified; H91.91 Unspecified hearing loss, right ear; H26.9 Unspecified cataract; Z89.412 Acquired absence of left great toe; Z87.19 Personal history of other diseases of the digestive system; Z87.891 Personal history of nicotine dependence; Z79.4 Long term (current) use of insulin; Z79.899 Other long term (current) drug therapy; Z16.24 Resistance to multiple antibiotics; Z82.49 Family history of ischemic heart disease and other diseases of the circulatory system; Z88.1 Allergy status to other antibiotic agents; Z88.8 Allergy status to other drugs, medicaments and biological substances; Z71.3 Dietary counseling and surveillance; Z86.69 Personal history of other diseases of the nervous system and sense organs; Z86.19 Personal history of other infectious and parasitic diseases; Z87.09 Personal history of other diseases of the respiratory system; Z86.718 Personal history of other venous thrombosis and embolism; Z86.14 Personal history of Methicillin resistant Staphylococcus aureus infection; Z89.422 Acquired absence of other left toe(s); Z89.421 Acquired absence of other right toe(s)
CPT/HCPCS: 36415; 71020; 76770; 78452; 80048; 80053; 80061; 80074; 81001; 83036; 83735; 83880; 84443; 84484; 85025; 85610; 85730; 87086; 93017; 93458; 93880; 93970; 94150; 96365; 96376; 99291

== ENCOUNTER → 2017-03-01 | Outpatient (CLI) | payer MEDICARE ==
[2017-03-01 18:08] LABS: Anisocytosis Slight; Basophils # (A) 0.1 k/uL (0-0.2); Basophils % (A) 1 %; CH 27.5; CHCM 31.6; Eosinophils # (A) 0.5 k/uL (0-0.7); Eosinophils % (A) 5 %; HCT 40.4 % (39.0-53.0); HDW 3.23; HGB 12.6 gm/dL (13.0-17.5); Hypochromasia Slight; Luc # (Auto) 0.24; Luc % (Auto) 3; Lymphocytes # (A) 2.1 k/uL (1.0-4.8); Lymphocytes % (A) 23 %; MCH 27.4 pg (25.0-35.0); MCHC 31.2 g/dL (31.0-37.0); MCV 87.7 fL (80.0-100.0); Mean Platelet Volume 9.8; Monocytes # (A) 0.8 k/uL (0-1.0); Monocytes % (A) 8 %; Neutrophils # (A) 5.6 k/uL (1.3-7.7); Neutrophils % (A) 61 %; RBC 4.61 m/uL (4.30-5.90); WBC 9.2 k/uL (3.8-10.6); WBC (Perox) 8.96
[2017-03-01 18:26] LABS: Calcium 10.2 mg/dL (8.4-10.2); Magnesium 2.2 mg/dL (1.6-2.3); Phosphorous 3.7 mg/dL (2.5-4.5); Potassium 5.4 mmol/L (3.5-5.1); Uric Acid 6.4 mg/dL (3.5-8.5)
[2017-03-01 18:28] LABS: Amorphous Sediment,Urine Rare /hpf; Appearance,Urine Clear (Clear); Bacteria,Urine Occasional /hpf; Bilirubin,Urine Negative (Negative); Glucose,Urine (UA) Trace (Negative); Ketones,Urine Negative (Negative); Leukocyte Esterase,Urine Moderate (Negative); Mucus,Urine Rare /hpf; Nitrite,Urine Negative (Negative); Particle Count 2149; Protein,Urine 1+ (Negative); RBC,Urine 1 /hpf (0-5); Specific Gravity,Urine 1.012 (1.001-1.035); Squamous Epithelial Cell,Urine 3 /hpf (0-4); UA Billing (MACRO vs. MICRO) MICRO; Urobilinogen,Urine <2.0 mg/dL (<2.0); WBC,Urine 6 /hpf (0-5)
[2017-03-01 18:34] LABS: % Iron Saturation 20.3 % (20-50)
== END ==
LOC: LABWHC1 17:24
PROVIDERS: ATTEND Internal Medicine Nephrology
DX: N18.3 Chronic kidney disease, stage 3 (moderate) (principal); D64.9 Anemia, unspecified; E55.9 Vitamin D deficiency, unspecified; E21.3 Hyperparathyroidism, unspecified; M10.9 Gout, unspecified; N39.0 Urinary tract infection, site not specified
CPT/HCPCS: 36415; 80048; 81001; 82040; 82306; 82728; 83540; 83550; 83735; 83970; 84100; 84165; 84550; 85025; 86335

== ENCOUNTER 2018-06-15 09:54 | Inpatient (IN) | payer MEDICARE ==
[2018-06-15] MEDS ORDERED: PIPERACILLIN-TAZOBACTAM 3.375 GM in DEXTROSE/WATER 1 50ML.BAG IVPB STA (10:28)
[2018-06-15] MEDS: SODIUM CHLORIDE 0.9% 1,000 ML IV SCH ×2 (10:53→21:36)
[2018-06-15] MEDS: SODIUM CHLORIDE 0.9% 500 ML IV SCH ×2 (10:54→17:35)
--- NOTE | 2018-06-15 10:54 | ED ---
Lower Extremity Injury HPI - General Chief Complaint: Extremity Injury, Lower Stated Complaint: Dr Waddell Time Seen by Provider: 06/15/18 10:22 Source: patient, family, RN notes reviewed, old records reviewed Mode of arrival: wheelchair Limitations: no limitations - History of Present Illness Initial Comments: 73-year-old male presents emergency room is that she will complain of admission for an infected left foot. Patient reports that he see Dr. Franco for admission for debridement of the first metatarsal. He has been dealing with the wound clinic for quite some time, 2 years. He is diabetic. Has peripheral neuropathy. He denies any fever or chills. He is currently on doxycycline. Patient denies any fevers, chest pain, shortness breath, nausea or vomiting. - Related Data Home Medications Medication Instructions Recorded Confirmed Atorvastatin Calcium 10 mg PO HS 08/29/16 06/15/18 Insulin NPH/Reg Insulin 70/30 15 unit SQ AC-TID 02/17/17 06/15/18 [humuLIN 70/30 VIAL] cloNIDine HCL [Catapres] 0.1 mg PO BID 02/17/17 06/15/18 Cholecalciferol [Vitamin D3] 2,000 unit PO DAILY 09/12/17 06/15/18 Calcitriol [Rocaltrol] 0.25 mcg PO MOFR 12/26/17 06/15/18 Carvedilol [Coreg] 25 mg PO BID 04/03/18 06/15/18 Prazosin [Minipress] 1 mg PO BID 04/03/18 06/15/18 Doxycycline Hyclate 100 mg PO BID 05/01/18 06/15/18 Insulin NPH/Reg Insulin 70/30 See Protocol SQ AC-TID 06/15/18 06/15/18 [humuLIN 70/30 VIAL] Multivitamins, Thera [Multivitamin 1 tab PO DAILY 06/15/18 06/15/18 (formulary)] Aetmozzz-Nvwmhxglz-Lztbuwxc 1 applic BOTH EYES TID 06/15/18 06/15/18 [Maxitrol Ophth Oint] Previous Rx's Medication Instructions Recorded Aspirin 81 mg PO DAILY #30 chew 02/23/17 Isosorbide Mononitrate ER [Imdur] 30 mg PO DAILY #30 tab.er.24h 02/23/17 Nitroglycerin Sl Tabs [Nitrostat] 0.4 mg SUBLINGUAL Q5M PRN #100 tab 02/23/17 hydrALAZINE HCL [Apresoline] 50 mg PO TID #90 tab 02/23/17 Allergies Allergy/AdvReac Type Severity Reaction Status Date / Time amlodipine Allergy Anaphylaxis Verified 06/15/18 10:50 lisinopril Allergy tongue Verified 06/15/18 10:50 swelling vancomycin Allergy Unknown Verified 06/15/18 10:50 Review of Systems ROS Statement: Those systems with pertinent positive or pertinent negative responses have been documented in the HPI. ROS Other: All systems not noted in ROS Statement are negative. Past Medical History Past Medical History: Heart Failure, Diabetes Mellitus, Deep Vein Thrombosis ( DVT), Hyperlipidemia, Hypertension Additional Past Medical History / Comment(s): per pt's "xray noted lung nodules". 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, L foot gr toe, 3rd &2nd toe amputated; Rfoot 3rd toe amputated, Bypass in Bilat legs, eulogio knee sx(cartilage), lt arm picc line.since removed Past Anesthesia/Blood Transfusion Reactions: Postoperative Nausea & Vomiting ( PONV) Past Psychological History: No Psychological Hx Reported Smoking Status: Never smoker Past Alcohol Use History: None Reported Past Drug Use History: None Reported - Past Family History Father Family Medical History: Deep Vein Thrombosis (DVT) Additional Family Medical History / Comment(s): had valve sx- a week later from complications Mother Family Medical History: Congestive Heart Failure (CHF) Additional Family Medical History / Comment(s): phlebitis General Exam - General Exam Comments Initial Comments: This is a 73-year-old male. Alert and oriented. No significant distress. Limitations: no limitations General appearance: alert, in no apparent distress Head exam: Present: atraumatic, normocephalic, normal inspection Eye exam: Present: normal appearance, PERRL, EOMI. Absent: scleral icterus, conjunctival injection, periorbital swelling ENT exam: Present: normal exam, mucous membranes moist Neck exam: Present: normal inspection Respiratory exam: Present: normal lung sounds bilaterally. Absent: respiratory distress, wheezes, rales, rhonchi, stridor Cardiovascular Exam: Present: regular rate, normal rhythm, normal heart sounds. Absent: systolic murmur, diastolic murmur, rubs, gallop, clicks GI/Abdominal exam: Present: soft, normal bowel sounds. Absent: distended, tenderness, guarding, rebound, rigid Extremities exam: Present: full ROM, normal capillary refill, other (Patient has necrotic first tarsal with a chronic wound. The wound is deep, able to pass the culture swab approximately 1 inch deep. Purulent drainage noted.). Absent: normal inspection, tenderness, pedal edema, joint swelling, calf tenderness Back exam: Present: normal inspection Neurological exam: Present: alert, oriented X3, CN II-XII intact Psychiatric exam: Present: normal affect, normal mood Skin exam: Present: warm, dry, intact, normal color. Absent: rash Course Vital Signs 06/15/18 06/15/18 09:55 11:30 Temperature 98.7 F Pulse Rate 73 78 Respiratory 18 18 Rate Blood Pressure 163/73 160/81 O2 Sat by Pulse 98 98 Oximetry Medical Decision Making - Medical Decision Making 23-year-old male presents emergency department today she complaint of infection on the left first metatarsal. He has been dealing with chronic wound over this area for the past 2 years. He was sent in by Dr. Franco for admission for likely debridement and surgery tomorrow. Patient was started on IV fluids. Laboratory obtained. Unable to count 6.8. RBCs 3.6. Hemoglobin 10.6. BUN 39, creatinine 1.7. His lab work shows no significant change from previous labs. Patient's chest x-ray shows no acute process. Evidence of mild pulmonary vascular congestion. Left foot x-ray does show evidence of significant osteomyelitis of the left first metatarsal. At this time Patient started on IV Zosyn. He has been taking oral doxycycline. Patient's wound is quite deep evidence of what appears to be bone exposure. Wound was then wrapped placed and dressing. Culture was obtained over the wound. We'll continue the Patient on Zosyn and doxycycline until further recommendation from infectious disease and Dr. Franco. - Lab Data Result diagrams: 06/15/18 10:45 06/15/18 10:45 Lab Results 06/15/18 06/15/18 06/15/18 Range/Units 10:45 10:45 10:45 WBC 6.8 (3.8-10.6) k/uL RBC 3.96 L (4.30-5.90) m/uL Hgb 10.6 L (13.0-17.5) gm/dL Hct 32.4 L (39.0-53.0) % MCV 81.8 (80.0-100.0) fL MCH 26.8 (25.0-35.0) pg MCHC 32.7 (31.0-37.0) g/dL RDW 15.7 H (11.5-15.5) % Plt Count 221 (150-450) k/uL Neutrophils % 77 % Lymphocytes % 8 % Monocytes % 6 % Eosinophils % 6 % Basophils % 0 % Neutrophils # 5.2 (1.3-7.7) k/uL Lymphocytes # 0.6 L (1.0-4.8) k/uL Monocytes # 0.4 (0-1.0) k/uL Eosinophils # 0.4 (0-0.7) k/uL Basophils # 0.0 (0-0.2) k/uL PT (9.0-12.0) sec INR (<1.2) APTT (22.0-30.0) sec Sodium 136 L (137-145) mmol/L Potassium 4.6 (3.5-5.1) mmol/L Chloride 108 H (98-107) mmol/L Carbon Dioxide 19 L (22-30) mmol/L Anion Gap 9 mmol/L BUN 39 H (9-20) mg/dL Creatinine 1.70 H (0.66-1.25) mg/dL Est GFR (CKD-EPI)AfAm 46 (>60 ml/min/1.73 sqM) Est GFR (CKD-EPI)NonAf 40 (>60 ml/min/1.73 sqM) Glucose 207 H (74-99) mg/dL Plasma Lactic Acid [place] 0.9 (0.7-2.0) mmol/L Calcium 9.0 (8.4-10.2) mg/dL Total Bilirubin 0.3 (0.2-1.3) mg/dL AST 15 L (17-59) U/L ALT 28 (21-72) U/L Alkaline Phosphatase 93 (38-126) U/L Total Protein 5.9 L (6.3-8.2) g/dL Albumin 3.3 L (3.5-5.0) g/dL 06/15/18 Range/Units 10:45 WBC (3.8-10.6) k/uL RBC (4.30-5.90) m/uL Hgb (13.0-17.5) gm/dL Hct (39.0-53.0) % MCV (80.0-100.0) fL MCH (25.0-35.0) pg MCHC (31.0-37.0) g/dL RDW (11.5-15.5) % Plt Count (150-450) k/uL Neutrophils % % Lymphocytes % % Monocytes % % Eosinophils % % Basophils % % Neutrophils # (1.3-7.7) k/uL Lymphocytes # (1.0-4.8) k/uL Monocytes # (0-1.0) k/uL Eosinophils # (0-0.7) k/uL Basophils # (0-0.2) k/uL PT 9.9 (9.0-12.0) sec INR 1.0 (<1.2) APTT 26.9 (22.0-30.0) sec Sodium (137-145) mmol/L Potassium (3.5-5.1) mmol/L Chloride (98-107) mmol/L Carbon Dioxide (22-30) mmol/L Anion Gap mmol/L BUN (9-20) mg/dL Creatinine (0.66-1.25) mg/dL Est GFR (CKD-EPI)AfAm (>60 ml/min/1.73 sqM) Est GFR (CKD-EPI)NonAf (>60 ml/min/1.73 sqM) Glucose (74-99) mg/dL Plasma Lactic Acid [place] (0.7-2.0) mmol/L Calcium (8.4-10.2) mg/dL Total Bilirubin (0.2-1.3) mg/dL AST (17-59) U/L ALT (21-72) U/L Alkaline Phosphatase (38-126) U/L Total Protein (6.3-8.2) g/dL Albumin (3.5-5.0) g/dL 06/15/18 11:34 EKG shows sinus rhythm. Moderate voltage she is for LVH. Infarct. T-wave abnormality considering lateral ischemia. Prolonged QT. Ventricular rate 60 bpm. Pulse 202. QRS ration 106. QTQTC's 44/514 oh seconds. - Radiology Data Radiology results: report reviewed X-ray of the left foot shows evidence of osteomyelitis involving the distal margin remaining portion of the first metatarsal. X-rays x-ray shows chronic changes with no acute cardio coronary process. Unchanged pulmonary vascular prominence which may relate very mild pulmonary vascular congestion. Disposition Clinical Impression: Osteomyelitis of left foot, Diabetes, Renal failure, acute on chronic, HTN ( hypertension), Hyperlipemia Disposition: ADMITTED IP TO THIS HOSP Condition: Stable Is patient prescribed a controlled substance at d/c from ED?: No Referrals: Jack De Jesus MD [Primary Care Provider] - 1-2 days Time of Disposition: 12:18
[2018-06-15 11:01] LABS: Basophils % (A) 0 %; Eosinophils # (A) 0.4 k/uL (0-0.7); Eosinophils % (A) 6 %; HCT 32.4 % (39.0-53.0); HGB 10.6 gm/dL (13.0-17.5); Lymphocytes # (A) 0.6 k/uL (1.0-4.8); Lymphocytes % (A) 8 %; MCH 26.8 pg (25.0-35.0); MCHC 32.7 g/dL (31.0-37.0); MCV 81.8 fL (80.0-100.0); Mean Platelet Volume 8.2; Monocytes # (A) 0.4 k/uL (0-1.0); Monocytes % (A) 6 %; Neutrophils # (A) 5.2 k/uL (1.3-7.7); Neutrophils % (A) 77 %; Platelet Count 221 k/uL (150-450); RBC 3.96 m/uL (4.30-5.90); RDW 15.7 % (11.5-15.5); WBC 6.8 k/uL (3.8-10.6)
[2018-06-15 11:09] LABS: Albumin 3.3 g/dL (3.5-5.0); Potassium 4.6 mmol/L (3.5-5.1); Total Bilirubin 0.3 mg/dL (0.2-1.3); Total Protein 5.9 g/dL (6.3-8.2)
[2018-06-15 11:16] LABS: Partial Thromboplastin Time 26.9 sec (22.0-30.0); Prothrombin Time 9.9 sec (9.0-12.0)
--- NOTE | 2018-06-15 11:21 | XR ---
EXAMINATION TYPE: XR chest 2V DATE OF EXAM: 06/15/2018 COMPARISON: 12/23/2017 HISTORY: Fever TECHNIQUE: Frontal and lateral views of the chest are obtained. FINDINGS: There is chronic right hemidiaphragm elevation. Right-sided Mediport is unchanged in posit ion. Cardiac silhouette is again mildly enlarged. Pulmonary vascular prominence and chronic interstit ial prominence are similar to the prior. No new focal consolidation, pneumothorax or pleural effusion . IMPRESSION: Chronic changes with no acute cardiopulmonary process. Unchanged pulmonary vascular prom inence may relate to very mild pulmonary vascular congestion.
--- NOTE | 2018-06-15 11:36 | XR ---
EXAMINATION TYPE: XR foot complete LT DATE OF EXAM: 06/15/2018 COMPARISON: 12/19/2017 HISTORY: Pain and fever TECHNIQUE: 3 views submitted FINDINGS: There is diffuse soft tissue edema. There is postsurgical change involving the first, secon d, third and fifth digits. There is soft tissue edema. Suggestion of a degree of lucency involving th e remaining portion of the distal first metatarsal. IMPRESSION: Question osteomyelitis involving the distal margin of the remaining portion of the first metatarsal.
[2018-06-15] MEDS ORDERED: Acetaminophen-Codeine 300-30mg TAB PO PRN (12:19)
[2018-06-15] MEDS ORDERED: ONDANSETRON 4 MG/2 ML VIAL IVP PRN (12:19)
[2018-06-15] MEDS ORDERED: oxyCODONE-APAP 5-325MG 1 EACH TAB PO PRN (12:19)
[2018-06-15] MEDS ORDERED: IBUPROFEN 400 MG TAB PO PRN (12:19)
[2018-06-15] MEDS ORDERED: NALOXONE 0.4 MG/ML 1 ML VIAL IV PRN (12:19)
[2018-06-15] MEDS ORDERED: NITROGLYCERIN SL TABS 0.4 MG TAB SUBLINGUAL PRN (12:25)
[2018-06-15 14:21] LABS: Appearance,Urine Clear (Clear); Bilirubin,Urine Negative (Negative); Blood,Urine Negative (Negative); Color,Urine Yellow; Glucose,Urine (UA) 1+ (Negative); Ketones,Urine Negative (Negative); Leukocyte Esterase,Urine Trace (Negative); Mucus,Urine Rare /hpf; Nitrite,Urine Negative (Negative); PH, Urine 5.5 (5.0-8.0); Protein,Urine 1+ (Negative); Squamous Epithelial Cell,Urine <1 /hpf (0-4); Urobilinogen,Urine <2.0 mg/dL (<2.0); WBC,Urine 2 /hpf (0-5)
[2018-06-15] MEDS: INSULIN ASPART 100 UNIT/ML 1 ML 10 ML VIAL SQ SCH ×3 (15:23→21:37)
[2018-06-15] MEDS: PIPERACILLIN-TAZOBACTAM 3.375 GM in DEXTROSE/WATER 1 50ML.BAG IVPB SCH (16:02)
[2018-06-15] MEDS ORDERED: ALPRAZolam 0.25 MG TAB PO PRN (16:04)
[2018-06-15] MEDS ORDERED: TEMAZEPAM 15 MG CAP PO PRN (16:04)
[2018-06-15] MEDS ORDERED: hydrALAZINE HCL 20 MG/ML 1 ML VIAL IVP PRN (16:05)
[2018-06-15] MEDS ORDERED: cloNIDine HCL 0.1 MG TAB PO PRN (16:05)
[2018-06-15] MEDS: NEOMYCIN-POLYMYXIN-DEXAMETH OINT 3.5 GM TUBE BOTH EYES SCH ×2 (16:47→22:07)
[2018-06-15] MEDS: CARVEDILOL 12.5 MG TAB PO SCH (16:47)
[2018-06-15] MEDS: hydrALAZINE HCL 50 MG TAB PO SCH ×2 (16:47→22:07)
[2018-06-15 17:23] LABS: Glucose,Whole Blood 110 mg/dL (75-99)
[2018-06-15] MEDS: INSULIN NPH/REG INSULIN 70/30 300 UNIT/3 ML VIAL SQ SCH (17:53)
--- NOTE | 2018-06-15 19:56 | CONS ---
CONSULTATION DATE OF SERVICE: 06/15/2018. HISTORY: This is a 73-year-old gentleman known to me from the wound clinic. The patient has wet gangrene of the left foot involving 4th and 5th toe and also involving the metatarsal bone. The patient had a left big toe amputation done in the past. The patient has history of peripheral vascular disease. The patient is scheduled to have re-amputation of the 4th and 5th toe and also the metatarsal bone. MEDICAL HISTORY: History of diabetes, hypertension, peripheral vascular disease, stage 4 kidney disease. EXAMINATION: NECK: Supple. Trachea central. CHEST: Clear. ABDOMEN: Soft. Brachial and radial pulses and femorals are 1+. The patient has wet gangrene of the 4th and 5th toe. PLAN: We have discussed about a major amputation. He does not want to go. We will proceed for ray amputation. Prognosis is guarded. The patient is on IV antibiotics. MMODL / IJN: [id number] /
[2018-06-15] MEDS: HEPARIN SODIUM,PORCINE 5,000 UNIT/ML 1 ML VIAL SQ SCH ×2 (20:04→21:08)
[2018-06-15] MEDS: PRAZOSIN 1 MG CAP PO SCH (20:05)
[2018-06-15] MEDS: DOXYCYCLINE MONOHYDRATE 100 MG CAPSULE PO SCH (20:05)
[2018-06-15] MEDS: ATORVASTATIN 10 MG TAB PO SCH (20:05)
[2018-06-15 20:41] LABS: Glucose,Whole Blood 186 mg/dL (75-99)
[2018-06-15] MEDS ORDERED: cloNIDine HCL 0.1 MG TAB PO SCH (21:00)
--- NOTE | 2018-06-15 22:06 | HP ---
HISTORY AND PHYSICAL CHIEF COMPLAINTS: Left foot ulceration and infected left foot. HISTORY OF PRESENT ILLNESS: This 73-year-old gentleman with past medical history of CHF, diabetes, DVT, hypertension, hyperlipidemia being followed by Dr. Jack De Jesus in the outpatient setting had multiple amputations on the left side. The patient is having ulcerations on the left foot for the last several months. The patient is evaluated Dr. Franco [facility]. The patient is recommended admission at this time. The patient is planning on debridement of the first metatarsal. There is no history of fever, rigors. No history of headache, loss of consciousness or seizures. The patient had seen Infectious Disease previously during the previous admission. There is no history of fever, rigors. No history of headache, loss of consciousness, seizures. PAST MEDICAL HISTORY: History of CHF, diabetes type 2, DVT, hypertension, hyperlipidemia, history of hernia repair. MEDICATIONS: Prior to admission, home medications are: 1. Apresoline 50 mg p.o. t.i.d. 2. Catapres 0.1 p.o. b.i.d. 3. Minipress 0.1 mg b.i.d. 4. Nitrostat 0.4 mg sublingual p.r.n. 5. Neomycin t.i.d. 6. Multivitamins one p.o. daily. 7. Imdur ER 30 mg p.o. daily. 8. Humulin 70/30 t.i.d. and Humulin 70/30 50 units subcu a.c. t.i.d. 9. Doxycycline 100 mg p.o. b.i.d. 10.Vitamin D3 2000 daily. 11.Coreg 25 mg p.o. b.i.d. 12.Rocaltrol 0.25 mg Tuesday, Tuesday. 13.Lipitor 10 mg q.h.s. 14.Aspirin 81 mg daily. ALLERGIES: ARE AMLODIPINE, LISINOPRIL, VANCOMYCIN. FAMILY HISTORY: History of DVT in the family. SOCIAL HISTORY: No history of smoking. No alcohol intake. REVIEW OF SYSTEMS: ENT: No diminished hearing or vision. Cardiovascular: No angina or palpitations. RESPIRATORY: No cough or hemoptysis. GI: No nausea or vomiting. : No dysuria or dysuria. Nervous system: No numbness or weakness. Allergy/immunology: No asthma or hay fever. Musculoskeletal: As mentioned earlier. Hematology/Oncology: No history of anemia. Endocrine as mentioned earlier. CONSTITUTIONAL: As mentioned earlier. Dermatology: As mentioned earlier. Rheumatology negative. Psychiatry as mentioned earlier. PHYSICAL EXAMINATION: Alert and oriented x3. Pulse is 63, blood pressure 178/87, respiration 17, temperature 98.1, pulse ox 99% on room air. HEENT: Conjunctivae normal. Oral mucosa moist. Neck is no jugular venous distention. No carotid bruit. No lymph node enlargement. Cardiovascular: S1, S2 muffled. No S3, no S4. Respiratory: Breath sounds diminished in the bases. No rhonchi. No crackles. ABDOMEN: Soft, nontender. No mass palpable. Legs: Peripheral neuropathy present otherwise. Pulses diminished bilaterally. Left foot ulceration also present. NERVOUS SYSTEM: Higher functions as mentioned earlier. Moves all four limbs. No focal motor or sensory deficits. Skin: No ulcer, rashes or bleeding. LABS: WBC 6.2, hemoglobin 10.6, sodium 136 and creatinine is 1.70. ASSESSMENT: 1. Acute left foot infection, possible osteomyelitis. 2. Diabetes type 2. 3. History of peripheral neuropathy. 4. Anemia. 5. Hyponatremia. 6. Increased creatinine with chronic kidney stage 3. 7. History of congestive heart failure. 8. History of deep vein thrombosis. 9. Hypertension. 10.Hyperlipidemia. 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 12.History of hernia repair. RECOMMENDATIONS AND DISCUSSION: In this 73-year-old gentleman who presented with multiple complex medical issues , we will monitor the patient closely, continue the current medications, management and symptomatic treatment. We will initiate the home medications. Monitor blood sugars closely. Broad-spectrum IV antibiotics. Zosyn has been initiated. I would recommend infectious Disease and vascular consultations. I would also recommend a bone scan also. The bone scan was done in April which is distal 5th metatarsal of the right foot and 1st metatarsal of the left foot. We will continue to monitor. Prognosis guarded because of multiple complex medical issues. Further recommendations to follow. See orders for details. MMODL / IJN: [id number] / MTDMark
[2018-06-15] MEDS: cloNIDine HCL 0.1 MG TAB PO SCH (22:07)
[2018-06-16] MEDS: PIPERACILLIN-TAZOBACTAM 3.375 GM in DEXTROSE/WATER 1 50ML.BAG IVPB SCH ×3 (00:57→16:58)
[2018-06-16 04:30] LABS: Hemoglobin A1C 7.3 % (4.0-6.0)
[2018-06-16 07:36] LABS: Glucose,Whole Blood 116 mg/dL (75-99)
[2018-06-16] MEDS: INSULIN ASPART 100 UNIT/ML 1 ML 10 ML VIAL SQ SCH ×4 (07:47→22:18)
[2018-06-16] MEDS: INSULIN NPH/REG INSULIN 70/30 300 UNIT/3 ML VIAL SQ SCH ×3 (08:07→18:28)
[2018-06-16 08:22] LABS: Basophils % (A) 0 %; Eosinophils # (A) 0.4 k/uL (0-0.7); Eosinophils % (A) 6 %; HCT 37.2 % (39.0-53.0); HGB 11.9 gm/dL (13.0-17.5); Lymphocytes # (A) 0.5 k/uL (1.0-4.8); Lymphocytes % (A) 8 %; MCH 26.5 pg (25.0-35.0); Mean Platelet Volume 9.8; Monocytes # (A) 0.4 k/uL (0-1.0); Monocytes % (A) 6 %; Neutrophils # (A) 5.6 k/uL (1.3-7.7); Neutrophils % (A) 79 %; Platelet Count 256 k/uL (150-450); RBC 4.48 m/uL (4.30-5.90); RDW 15.8 % (11.5-15.5)
[2018-06-16 08:41] LABS: Calcium 9.3 mg/dL (8.4-10.2); Potassium 4.8 mmol/L (3.5-5.1)
[2018-06-16] MEDS ORDERED: PANTOPRAZOLE 40 MG/10 ML VIAL IV SCH (09:00)
--- NOTE | 2018-06-16 09:26 | P.CONS ---
History of Present Illness - Reason for Consult Consult date: 06/16/18 Osteomyelitis - History of Present Illness This is a 73-year-old male who is well known to ID service and has been a patient in [facility] under the care of Dr. Franco for left diabetic foot ulcer. Patient states that his home care nurse told him on Tuesday of last week that his foot was looking bad. He had an appointment with Dr. Franco in the wound center and was sent as a direct admission for wet gangrene of the left foot with plan for amputation today. Patient has been afebrile, vital signs stable, white count 6.8, creatinine 1.7 which is his baseline. Urinalysis was clear with leukoesterase trace. Blood cultures received. Patient has been on doxycycline as an outpatient and is currently on Zosyn. Wound cultures are in progress. Hemoglobin A1c is 7.3 improved from 1 in November of 8.3. Patient relates that his has also been recently admitted to the hospital and discharged on Tuesday. She is staying with a friend in the [place] area. Review of Systems All systems: negative Constitutional: Denies chills, Denies fever, Denies poor appetite, Denies sweats , Denies weakness Eyes: denies blurred vision, denies pain Ears, nose, mouth and throat: Denies dental pain, Denies dysphagia, Denies headache, Denies mouth pain, Denies sore throat, Denies vertigo Cardiovascular: Denies chest pain, Denies decreased exercise tolerance, Denies dyspnea on exertion, Denies edema, Denies leg edema, Denies lightheadedness, Denies shortness of breath, Denies syncope Respiratory: Denies congestion, Denies cough, Denies cough with sputum, Denies dyspnea, Denies excessive sputum, Denies hemoptysis, Denies home oxygen, Denies wheezing Gastrointestinal: Denies abdominal pain, Denies diarrhea, Denies loss of appetite, Denies melena, Denies nausea, Denies vomiting Genitourinary: Denies dysuria Musculoskeletal: Denies myalgias Integumentary: Reports wounds, Denies pruritus, Denies rash Neurological: Denies numbness, Denies weakness Psychiatric: Denies anxiety, Denies depression Endocrine: Denies fatigue, Denies weight change Past Medical History Past Medical History: Heart Failure, Diabetes Mellitus, Deep Vein Thrombosis ( DVT), Hyperlipidemia, Hypertension Additional Past Medical History / Comment(s): per pt's "xray noted lung nodules". 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 Past Anesthesia/Blood Transfusion Reactions: Postoperative Nausea & Vomiting ( PONV) Additional Past Anesthesia/Blood Transfusion Reaction / Comm: never recieved blood Smoking Status: Never smoker Additional Past Alcohol Use History / Comment(s): Patient is and lives at home with his . There are no pets in the home. He does have home care set up. No service. Patient has lived in [facility]. 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 Patient is moved to this area to be close to his children. Patient stopped smoking several years ago. No significant history of alcohol or recreational drug use. No international travel. No animal exposures. - Past Family History Father Family Medical History: Deep Vein Thrombosis (DVT) Additional Family Medical History / Comment(s): had valve sx- a week later from complications Mother Family Medical History: Congestive Heart Failure (CHF) Additional Family Medical History / Comment(s): phlebitis Medications and Allergies Home Medications Medication Instructions Recorded Confirmed Type Atorvastatin Calcium 10 mg PO HS 08/29/16 06/15/18 History Insulin NPH/Reg Insulin 70/30 15 unit SQ AC-TID 02/17/17 06/15/18 History [humuLIN 70/30 VIAL] cloNIDine HCL [Catapres] 0.1 mg PO BID 02/17/17 06/15/18 History Aspirin 81 mg PO DAILY #30 chew 02/23/17 06/15/18 Rx Isosorbide Mononitrate ER [Imdur] 30 mg PO DAILY #30 tab.er.24h 02/23/17 Rx Nitroglycerin Sl Tabs [Nitrostat] 0.4 mg SUBLINGUAL Q5M PRN #100 tab 02/23/17 Rx hydrALAZINE HCL [Apresoline] 50 mg PO TID #90 tab 02/23/17 06/15/18 Rx Cholecalciferol [Vitamin D3] 2,000 unit PO DAILY 09/12/17 06/15/18 History Calcitriol [Rocaltrol] 0.25 mcg PO MOFR 12/26/17 06/15/18 History Carvedilol [Coreg] 25 mg PO BID 04/03/18 06/15/18 History Prazosin [Minipress] 1 mg PO BID 04/03/18 06/15/18 History Doxycycline Hyclate 100 mg PO BID 05/01/18 06/15/18 History Insulin NPH/Reg Insulin 70/30 See Protocol SQ AC-TID 06/15/18 06/15/18 History [humuLIN 70/30 VIAL] Multivitamins, Thera [Multivitamin 1 tab PO DAILY 06/15/18 06/15/18 History (formulary)] Jqaofped-Bweujtlva-Lestncpg 1 applic BOTH EYES TID 06/15/18 06/15/18 History [Maxitrol Ophth Oint] Allergies Allergy/AdvReac Type Severity Reaction Status Date / Time amlodipine Allergy Anaphylaxis Verified 06/15/18 10:50 lisinopril Allergy tongue Verified 06/15/18 10:50 swelling vancomycin Allergy Unknown Verified 06/15/18 10:50 Physical Exam Vitals: Vital Signs Temp Pulse Pulse Resp BP BP Pulse Ox 06/16/18 05:45 98.4 F 70 16 174/91 99 06/15/18 23:05 98.1 F 69 16 167/80 99 06/15/18 15:36 96.1 F L 63 17 178/87 99 06/15/18 14:44 96.9 F L 66 14 165/80 99 06/15/18 13:45 96.9 F L 66 16 140/80 98 06/15/18 11:30 78 18 160/81 98 06/15/18 09:55 98.7 F 73 18 163/73 98 Intake and Output 06/15/18 06/16/18 06/16/18 22:59 06:59 14:59 Other: Voiding Method Toilet # Voids 1 1 Gen: This is a 73-year-old male. He is sitting up in a chair at the bedside and appears to be in no acute distress. No respiratory distress noted at rest. HEENT: Head is normocephalic. Healing wound under the left eye status post plastic surgery with skin grafting done from his left shoulder to this area Pupils equal, round. Sclerae is anicteric. Conjunctiva pink. Mucous members of the mouth are slightly dry. NECK: Supple. No JVD. No lymphadenopathy. No thyromegaly. LUNGS: Diminished in the bases. No wheezes or rhonchi. No intercostal retractions. HEART: Regular rate and rhythm. No murmur. ABDOMEN: Soft. Bowel sounds are present. No masses. No tenderness. EXTREMITIES: No pedal edema. No calf tenderness. There is breakthrough drainage on the dressing to the left foot. Patient has an open wound with possible tunneling to the wound at the left first metatarsal, serosanguineous drainage, foul odor. Previous partial amputation of the first metatarsal, second and third toes. Dorsalis pedis 1+ bilaterally. Patient has had a previous amputation of the second toe on the right. NEUROLOGICAL: Patient is awake, alert and oriented x3. Cranial nerves 2 through 12 are grossly intact. Results Results: Laboratory Results WBC 7.0 k/uL (3.8-10.6) 06/16/18 07:50 RBC 4.48 m/uL (4.30-5.90) 06/16/18 07:50 Hgb 11.9 gm/dL (13.0-17.5) L 06/16/18 07:50 Hct 37.2 % (39.0-53.0) L 06/16/18 07:50 MCV 83.0 fL (80.0-100.0) 06/16/18 07:50 MCH 26.5 pg (25.0-35.0) 06/16/18 07:50 MCHC 32.0 g/dL (31.0-37.0) 06/16/18 07:50 RDW 15.8 % (11.5-15.5) H 06/16/18 07:50 Plt Count 256 k/uL (150-450) 06/16/18 07:50 Neutrophils % 79 % 06/16/18 07:50 Lymphocytes % 8 % 06/16/18 07:50 Monocytes % 6 % 06/16/18 07:50 Eosinophils % 6 % 06/16/18 07:50 Basophils % 0 % 06/16/18 07:50 Neutrophils # 5.6 k/uL (1.3-7.7) 06/16/18 07:50 Lymphocytes # 0.5 k/uL (1.0-4.8) L 06/16/18 07:50 Monocytes # 0.4 k/uL (0-1.0) 06/16/18 07:50 Eosinophils # 0.4 k/uL (0-0.7) 06/16/18 07:50 Basophils # 0.0 k/uL (0-0.2) 06/16/18 07:50 PT 9.9 sec (9.0-12.0) 06/15/18 10:45 INR 1.0 (<1.2) 06/15/18 10:45 APTT 26.9 sec (22.0-30.0) 06/15/18 10:45 Sodium 140 mmol/L (137-145) 06/16/18 07:50 Potassium 4.8 mmol/L (3.5-5.1) 06/16/18 07:50 Chloride 110 mmol/L (98-107) H 06/16/18 07:50 Carbon Dioxide 19 mmol/L (22-30) L 06/16/18 07:50 Anion Gap 11 mmol/L 06/16/18 07:50 BUN 33 mg/dL (9-20) H 06/16/18 07:50 Creatinine 1.98 mg/dL (0.66-1.25) H 06/16/18 07:50 Est GFR (CKD-EPI)AfAm 38 (>60 ml/min/1.73 sqM) 06/16/18 07:50 Est GFR (CKD-EPI)NonAf 33 (>60 ml/min/1.73 sqM) 06/16/18 07:50 Glucose 110 mg/dL (74-99) H 06/16/18 07:50 POC Glucose (mg/dL) 116 mg/dL (75-99) H 06/16/18 07:32 POC Glu Craft Coordinator ID Christi Garrido 06/16/18 07:[address] Glu mg/dL 163 06/15/18 10:45 Hemoglobin A1c 7.3 % (4.0-6.0) H 06/15/18 10:45 Plasma Lactic Acid [place] 0.9 mmol/L (0.7-2.0) 06/15/18 10:45 Calcium 9.3 mg/dL (8.4-10.2) 06/16/18 07:50 Total Bilirubin 0.3 mg/dL (0.2-1.3) 06/15/18 10:45 AST 15 U/L (17-59) L 06/15/18 10:45 ALT 28 U/L (21-72) 06/15/18 10:45 Alkaline Phosphatase 93 U/L (38-126) 06/15/18 10:45 Total Protein 5.9 g/dL (6.3-8.2) L 06/15/18 10:45 Albumin 3.3 g/dL (3.5-5.0) L 06/15/18 10:45 Urine Color Yellow 06/15/18 14:00 Urine Appearance Clear (Clear) 06/15/18 14:00 Urine pH 5.5 (5.0-8.0) 06/15/18 14:00 Ur Specific [place] 1.010 (1.001-1.035) 06/15/18 14:00 Urine Protein 1+ (Negative) H 06/15/18 14:00 Urine Glucose (UA) 1+ (Negative) H 06/15/18 14:00 Urine Ketones Negative (Negative) 06/15/18 14:00 Urine Blood Negative (Negative) 06/15/18 14:00 Urine Nitrite Negative (Negative) 06/15/18 14:00 Urine Bilirubin Negative (Negative) 06/15/18 14:00 Urine Urobilinogen <2.0 mg/dL (<2.0) 06/15/18 14:00 Ur Leukocyte Esterase Trace (Negative) H 06/15/18 14:00 Urine WBC 2 /hpf (0-5) 06/15/18 14:00 Ur Squamous Epith Cells <1 /hpf (0-4) 06/15/18 14:00 Urine Mucus Rare /hpf (None) H 06/15/18 14:00 CBC & Chem 7: 06/16/18 07:50 06/16/18 07:50 Labs: Abnormal Lab Results - Last 24 Hours (Table) 06/15/18 06/15/18 06/15/18 Range/Units 10:45 10:45 10:45 RBC 3.96 L (4.30-5.90) m/uL Hgb 10.6 L (13.0-17.5) gm/dL Hct 32.4 L (39.0-53.0) % RDW 15.7 H (11.5-15.5) % Lymphocytes # 0.6 L (1.0-4.8) k/uL Sodium 136 L (137-145) mmol/L Chloride 108 H (98-107) mmol/L Carbon Dioxide 19 L (22-30) mmol/L BUN 39 H (9-20) mg/dL Creatinine 1.70 H (0.66-1.25) mg/dL Glucose 207 H (74-99) mg/dL POC Glucose (mg/dL) (75-99) mg/dL Hemoglobin A1c 7.3 H (4.0-6.0) % AST 15 L (17-59) U/L Total Protein 5.9 L (6.3-8.2) g/dL Albumin 3.3 L (3.5-5.0) g/dL Urine Protein (Negative) Urine Glucose (UA) (Negative) Ur Leukocyte Esterase (Negative) Urine Mucus (None) /hpf 06/15/18 06/15/18 06/15/18 Range/Units 14:00 17:05 20:35 RBC (4.30-5.90) m/uL Hgb (13.0-17.5) gm/dL Hct (39.0-53.0) % RDW (11.5-15.5) % Lymphocytes # (1.0-4.8) k/uL Sodium (137-145) mmol/L Chloride (98-107) mmol/L Carbon Dioxide (22-30) mmol/L BUN (9-20) mg/dL Creatinine (0.66-1.25) mg/dL Glucose (74-99) mg/dL POC Glucose (mg/dL) 110 H 186 H (75-99) mg/dL Hemoglobin A1c (4.0-6.0) % AST (17-59) U/L Total Protein (6.3-8.2) g/dL Albumin (3.5-5.0) g/dL Urine Protein 1+ H (Negative) Urine Glucose (UA) 1+ H (Negative) Ur Leukocyte Esterase Trace H (Negative) Urine Mucus Rare H (None) /hpf 06/16/18 06/16/18 06/16/18 Range/Units 07:32 07:50 07:50 RBC (4.30-5.90) m/uL Hgb 11.9 L (13.0-17.5) gm/dL Hct 37.2 L (39.0-53.0) % RDW 15.8 H (11.5-15.5) % Lymphocytes # 0.5 L (1.0-4.8) k/uL Sodium (137-145) mmol/L Chloride 110 H (98-107) mmol/L Carbon Dioxide 19 L (22-30) mmol/L BUN 33 H (9-20) mg/dL Creatinine 1.98 H (0.66-1.25) mg/dL Glucose 110 H (74-99) mg/dL POC Glucose (mg/dL) 116 H (75-99) mg/dL Hemoglobin A1c (4.0-6.0) % AST (17-59) U/L Total Protein (6.3-8.2) g/dL Albumin (3.5-5.0) g/dL Urine Protein (Negative) Urine Glucose (UA) (Negative) Ur Leukocyte Esterase (Negative) Urine Mucus (None) /hpf Microbiology - Last 24 Hours (Table) 06/15/18 10:45 Gram Stain - Preliminary Foot - Left Wound Culture - Preliminary 06/15/18 14:00 Urine Culture - Preliminary Urine,Voided Assessment and Plan Plan: This is a 73-year-old male presents to Hospital with wet gangrene of the left first metatarsal. Patient has been seen by Dr. Franco with plan for amputation. Patient is currently on doxycycline and Zosyn. Doxycycline will be discontinued for now. Bone scan will be canceled. Blood cultures status received. Continue supportive care. Further recommendations as patient progresses. The above dictated assessment and findings were discussed with Dr. Cowart. The impression and plan of care have been directed as dictated. Fabiana Redman nurse practitioner acting as scribe for Dr. Cowart.
[2018-06-16] MEDS: CARVEDILOL 12.5 MG TAB PO SCH ×2 (10:35→16:59)
[2018-06-16] MEDS: hydrALAZINE HCL 50 MG TAB PO SCH ×3 (10:35→20:47)
[2018-06-16] MEDS: ISOSORBIDE MONONITRATE ER 30 MG TAB.ER.24H PO SCH (10:36)
[2018-06-16] MEDS: cloNIDine HCL 0.1 MG TAB PO SCH ×3 (10:36→20:48)
[2018-06-16] MEDS: PRAZOSIN 1 MG CAP PO SCH ×2 (10:38→20:47)
[2018-06-16] MEDS: HEPARIN SODIUM,PORCINE 5,000 UNIT/ML 1 ML VIAL SQ SCH ×2 (10:38→21:01)
[2018-06-16] MEDS: SODIUM CHLORIDE 0.9% 1,000 ML IV SCH (10:39)
[2018-06-16] MEDS: NEOMYCIN-POLYMYXIN-DEXAMETH OINT 3.5 GM TUBE BOTH EYES SCH ×3 (10:44→20:48)
[2018-06-16 11:28] VITALS: BMI 28.7
[2018-06-16 12:07] LABS: Glucose,Whole Blood 147 mg/dL (75-99)
[2018-06-16] MEDS ORDERED: IV FLUID CONTINUATION 1,000 ML IV ONE (14:25)
[2018-06-16 14:28] LABS: Glucose,Whole Blood 158 mg/dL (75-99)
[2018-06-16] MEDS ORDERED: fentaNYL (PF) 50 MCG/ML 2 ML AMP ONE (14:52)
[2018-06-16] MEDS ORDERED: KETAMINE 10 MG/ML 20 ML VIAL ONE (14:52)
[2018-06-16] MEDS ORDERED: MIDAZOLAM 2 MG/2 ML VIAL ONE (14:52)
[2018-06-16] MEDS ORDERED: LIDOCAINE 1%-EPI 1:100,000 30 ML VIAL SQ ONE ×2 (15:01→15:19)
[2018-06-16 15:41] LABS: Glucose,Whole Blood 155 mg/dL (75-99)
[2018-06-16] MEDS ORDERED: SODIUM CHLORIDE 0.9% 1,000 ML IV ONE (16:09)
--- NOTE | 2018-06-16 16:28 | CONS ---
CONSULTATION ADDENDUM: Left foot big toe stump necrotic and exposed metatarsal bone. PLAN: Debridement of the wound and excision of head of the metatarsal bone of the left foot big toe. MMODL / IJN: [id number] /
[2018-06-16] MEDS: CHOLECALCIFEROL 1,000 UNIT TAB PO SCH (17:00)
[2018-06-16] MEDS: CALCITRIOL 0.25 MCG CAP PO SCH (17:00)
[2018-06-16] MEDS: MULTIVITAMINS, THERA 1 EACH TAB PO SCH (17:00)
[2018-06-16] MEDS: ASPIRIN 81 MG PO SCH (17:00)
--- NOTE | 2018-06-16 17:04 | PCN ---
PROCEDURE NOTE PREOP DIAGNOSIS: Chronic wound, left foot big toe stump with exposed head of the metatarsal bone. OPERATION: Debridement of the stump of the left big toe and excision of the head of the metatarsal bone and excision of all devitalized tissue. PROCEDURE: This patient had a left big toe amputation in the past. He has been coming to the [facility] for local wound care. The patient has a chronic open wound. He came on the weekend to the emergency room and has been admitted. Wound has devitalized tissue and also the head of the metatarsal bone is exposed and necrotic. The patient was brought to the operating room. Left foot was prepped and draped in a sterile manner. 1% lidocaine was infiltrated with IV sedation. An elliptical incision was made on the stump, deepened through skin, fat and subcu tissue. All the devitalized tissue was removed. The head of the metatarsal bone had osteo and was exposed and was excised with bone cutter until we found normal bone. We took some deep culture. The wound was copiously irrigated with saline and Betadine and subcu tissue was approximated with 0 Vicryl. Skin was kept open and dressing applied. Patient tolerated the procedure well. Blood loss is minimal. MMODL / IJN: [id number] /
[2018-06-16] MEDS: DOXYCYCLINE MONOHYDRATE 100 MG CAPSULE PO SCH (17:07)
[2018-06-16 17:22] LABS: Glucose,Whole Blood 157 mg/dL (75-99)
--- NOTE | 2018-06-16 17:58 | PN ---
PROGRESS NOTE DATE OF SERVICE: 06/16/2018 This 73-year-old gentleman admitted with acute left foot infection, osteomyelitis, underwent debridement of the stump of the left big toe and excision of the head of the metatarsal bone and excision of all devitalized tissue by Dr. Franco. No chest pain. No palpitations. No fever. PHYSICAL EXAM: Alert and oriented x3. Pulse 57, blood pressure 159/80, respirations 18, temperature 97.2, pulse ox 98% on 6L. HEENT: Conjunctivae normal. Oral mucosa moist. NECK: No jugular venous distention. No carotid bruits. No lymph node enlargement. CARDIOVASCULAR: S1, S2 muffled. RESPIRATORY: Breath sounds diminished in the bases. No rhonchi. No crackles. ABDOMEN: Soft, nontender. LEGS: Status post surgery. NERVOUS SYSTEM: No focal deficits. LABS: WBC 7, hemoglobin is 11.9 and creatinine is 1.98. Accu-Cheks noted. ASSESSMENT: 1. Acute left foot infection, osteomyelitis, status post debridement of the stump of the left big toe and excision of the head with metatarsal bone excision of all devitalized tissue. 2. Diabetes mellitus type 2. 3. Peripheral neuropathy. 4. Anemia. 5. Hyponatremia. 6. Increased creatinine with chronic kidney stage 3. 7. History of congestive heart failure. 8. History of deep venous thrombosis. 9. History of hypertension. 10.History of hyperlipidemia. 11.History of methicillin-resistant Staphylococcus aureus, vancomycin-resistant Enterococcus. 12.History of hernia repair. RECOMMENDATIONS AND DISCUSSION: Recommend to continue current medical management and symptomatic treatment. Wound culture showed gram-negative bacilli. Continue with IV antibiotics at this time. Follow closely Dr. Franco. DVT prophylaxis. Monitor creatinine closely. Further recommendations to follow. Prognosis guarded. MMODL / IJN: [id number] /
[2018-06-16] MEDS: ATORVASTATIN 10 MG TAB PO SCH (20:46)
[2018-06-16 21:55] LABS: Glucose,Whole Blood 227 mg/dL (75-99)
--- NOTE | 2018-06-16 23:01 | P.CON ---
Consult Note - . Consult date: 06/16/18 Assessment/Plan:: This is a 73-year-old male who is well known to ID service and has been a patient in the [facility] under the care of Dr. Franco for left diabetic foot ulcer. Patient states that his home care nurse told him on Tuesday of last week that his foot was looking bad. He had an appointment with Dr. Franco in the wound center and was sent as a direct admission for wet gangrene of the left foot with plan for amputation today. Patient has been afebrile, vital signs stable, white count 6.8, creatinine 1.7 which is his baseline. Urinalysis was clear with leukoesterase trace. Blood cultures received. Patient has been on doxycycline as an outpatient and is currently on Zosyn. Wound cultures are in progress. Hemoglobin A1c is 7.3 improved from 1 in November of 8.3. Patient relates that his has also been recently admitted to the hospital and discharged from the psychiatric unit on Tuesday. She is staying with a friend in the [place] area. The patient has had the marked worsening of the ulceration to his foot and constantly with evidence of some gangrenous changes he was taken to the operating room and had the further distal foot amputation. He is comfortable at this point in time eating his dinner. Relates that he will not be able to do outpatient intravenous antibiotic therapy at discharge. He will not be going to any type of rehab facility. Please see the consult note is dictated by nurse practitioner Mrs. Fabiana Redman. At this time the patient is comfortable since the procedure. It is just occurred a few hours ago. His appetite as well and blood sugars are doing well at this time. The plan will be to monitor the cultures, hopefully we will utilize oral antibiotic therapy at discharge given that he does not want outpatient due to his antibiotic therapy and will not agree to extended care. Wound care at this time will be per the surgeon. Patient will need to offload to have any further healing. Would also continue with his improving glucose control and his hemoglobin A1c has come down from 8.3-7.3 so far this year. Accommodation wound care offloading antibiotic therapy will hopefully allow some further improvement. I agree with evaluation, assessment and plan as dictated by nurse practitioner Mrs. Fabiana Redman.
[2018-06-17] MEDS: PIPERACILLIN-TAZOBACTAM 3.375 GM in DEXTROSE/WATER 1 50ML.BAG IVPB SCH ×3 (00:03→16:30)
[2018-06-17] MEDS: SODIUM CHLORIDE 0.9% 1,000 ML IV SCH ×2 (00:03→13:04)
[2018-06-17] MEDS: ACETAMINOPHEN TAB 325 MG TAB PO PRN ×3 (02:24→19:42)
[2018-06-17 07:13] LABS: Glucose,Whole Blood 136 mg/dL (75-99)
[2018-06-17 08:22] LABS: Basophils % (A) 0 %; Eosinophils # (A) 0.3 k/uL (0-0.7); Eosinophils % (A) 6 %; HCT 32.6 % (39.0-53.0); HGB 10.4 gm/dL (13.0-17.5); Hypochromasia Slight; Lymphocytes # (A) 0.5 k/uL (1.0-4.8); Lymphocytes % (A) 9 %; MCH 26.6 pg (25.0-35.0); MCHC 31.8 g/dL (31.0-37.0); MCV 83.7 fL (80.0-100.0); Mean Platelet Volume 9.2; Monocytes # (A) 0.3 k/uL (0-1.0); Monocytes % (A) 6 %; Neutrophils # (A) 4.3 k/uL (1.3-7.7); Neutrophils % (A) 77 %; Platelet Count 219 k/uL (150-450); RDW 15.8 % (11.5-15.5); WBC 5.6 k/uL (3.8-10.6)
[2018-06-17 08:29] LABS: Calcium 9.1 mg/dL (8.4-10.2); Potassium 4.5 mmol/L (3.5-5.1)
[2018-06-17] MEDS: INSULIN ASPART 100 UNIT/ML 1 ML 10 ML VIAL SQ SCH ×4 (08:43→22:36)
[2018-06-17] MEDS: CHOLECALCIFEROL 1,000 UNIT TAB PO SCH (08:44)
[2018-06-17] MEDS: hydrALAZINE HCL 50 MG TAB PO SCH ×3 (08:44→21:19)
[2018-06-17] MEDS: MULTIVITAMINS, THERA 1 EACH TAB PO SCH (08:44)
[2018-06-17] MEDS: PANTOPRAZOLE 40 MG TABLET PO SCH (08:44)
[2018-06-17] MEDS: PRAZOSIN 1 MG CAP PO SCH ×2 (08:44→21:19)
[2018-06-17] MEDS: ISOSORBIDE MONONITRATE ER 30 MG TAB.ER.24H PO SCH (08:44)
[2018-06-17] MEDS: HEPARIN SODIUM,PORCINE 5,000 UNIT/ML 1 ML VIAL SQ SCH ×2 (08:44→21:19)
[2018-06-17] MEDS: CARVEDILOL 12.5 MG TAB PO SCH ×2 (08:44→16:31)
[2018-06-17] MEDS: NEOMYCIN-POLYMYXIN-DEXAMETH OINT 3.5 GM TUBE BOTH EYES SCH ×3 (08:44→21:19)
[2018-06-17] MEDS: INSULIN NPH/REG INSULIN 70/30 300 UNIT/3 ML VIAL SQ SCH ×3 (08:45→18:12)
[2018-06-17] MEDS: cloNIDine HCL 0.1 MG TAB PO SCH ×3 (08:45→21:19)
[2018-06-17] MEDS: ASPIRIN 81 MG PO SCH (08:45)
[2018-06-17 11:58] LABS: Glucose,Whole Blood 290 mg/dL (75-99)
--- NOTE | 2018-06-17 15:59 | PN ---
PROGRESS NOTE DATE OF SERVICE: 06/17/2018 INTERVAL HISTORY: This is a 73-year-old gentleman admitted with acute left foot infection, osteomyelitis, underwent debridement of the stump of the left big toe and excision of the head with metatarsal bone excision of the tissue by Dr. Franco yesterday. No chest pain. No palpitations. Patient on broad-spectrum IV antibiotics. No fever, no cough. PHYSICAL EXAM: Alert and oriented x3. Pulse 65, blood pressure 182/81, respiration 16, temperature 97 degrees, pulse ox 99% on room air. HEENT: Conjunctivae normal. Oral mucosa moist. CARDIOVASCULAR SYSTEMS: S1, S2. RESPIRATION: Breath sounds diminished at the bases, a few scattered rhonchi. No crackles. ABDOMEN: Soft, nontender. No mass palpable. LEGS: No edema. No swelling. Status post surgery. NERVOUS SYSTEM: No focal deficits. LABS: At this time shows WBC 5.7, hemoglobin is 10.4, creatinine is 1.96. Accu-Cheks noted. ASSESSMENT: 1. Acute left foot infection, osteomyelitis, status post debridement of the stump of the left big toe and also excision of the head of the first metatarsal. 2. Diabetes mellitus type 2. 3. Peripheral neuropathy. 4. Anemia. 5. Hyponatremia. 6. Increased creatinine with chronic kidney stage III. 7. History of congestive heart failure. 8. History of deep venous thrombosis. 9. History of hypertension. 10.History of methicillin-resistant Staphylococcus aureus, vancomycin-resistant Enterococcus. 11.History of hernia repair. RECOMMENDATION: Recommend continue current management. Continue with the symptomatic treatment. Otherwise, at this time I would recommend continue with antibiotics. Repeat labs. Guarded prognosis. Further recommendations to follow. MMODL / IJN: [id number] /
--- NOTE | 2018-06-17 17:03 | P.PN ---
Subjective Progress Note Date: 06/17/18 This is a 73-year-old male who is well known to ID service and has [facility] under the care of Dr. Franco for left diabetic foot ulcer. Patient states that his home care nurse told him on Tuesday of last week that his foot was looking bad. He had an appointment with Dr. Franco in the wound center and was sent as a direct admission for wet gangrene of the left foot with plan for amputation today. Patient has been afebrile, vital signs stable, white count 6.8, creatinine 1.7 which is his baseline. Urinalysis was clear with leukoesterase trace. Blood cultures received. Patient has been on doxycycline as an outpatient and is currently on Zosyn. Wound cultures are in progress. Hemoglobin A1c is 7.3 improved from 1 in November of 8.3. Patient relates that his has also been recently admitted to the hospital and discharged on Tuesday. She is staying with a friend in the [place] area. 06/17/2018 patient is comfortable at this time. Not having much pain. is present today, the patient is able to rehab after this hospital stay and that they just do not have the ability to care for him at home at this time given her many difficulties are also occurring. Objective - Vital Signs Vital signs: Vital Signs Temp 98.8 F 06/17/18 15:00 Pulse 71 06/17/18 15:00 Resp 16 06/17/18 15:41 BP 155/74 06/17/18 15:00 Pulse Ox 98 06/17/18 15:00 Intake & Output 06/16/18 06/17/18 06/17/18 18:59 06:59 18:59 Intake Total 320 300 Output Total 10 400 Balance 310 300 -400 Weight 104.326 kg Intake: IV 320 Oral 300 Output: Urine 400 Estimated Blood Loss 10 Other: Voiding Method Toilet Toilet # Voids 3 2 3 - Exam Gen: This is a 73-year-old male. He is sitting up in a chair at the bedside and appears to be in no acute distress. No respiratory distress noted at rest. HEENT: Head is normocephalic. Healing wound under the left eye status post plastic surgery with skin grafting done from his left shoulder to this area Pupils equal, round. Sclerae is anicteric. Conjunctiva pink. Mucous members of the mouth are slightly dry. NECK: Supple. No JVD. No lymphadenopathy. No thyromegaly. LUNGS: Diminished in the bases. No wheezes or rhonchi. No intercostal retractions. HEART: Regular rate and rhythm. No murmur. ABDOMEN: Soft. Bowel sounds are present. No masses. No tenderness. EXTREMITIES: No pedal edema. No calf tenderness. The left foot reveals evidence of the further surgical debridement and removal of the first metatarsal the wound is mostly closed did have some bloody drainage that is cleansed. The dressing with the Aquacel silver is reapplied. Previous partial amputation of the first metatarsal, second and third toes. Dorsalis pedis 1+ bilaterally. Patient has had a previous amputation of the second toe on the right. NEUROLOGICAL: Patient is awake, alert and oriented x3. Cranial nerves 2 through 12 are grossly intact. - Labs CBC & Chem 7: 06/17/18 07:24 06/17/18 07:24 Labs: Abnormal Lab Results - Last 24 Hours (Table) 06/16/18 06/16/18 06/17/18 Range/Units 17:11 21:38 07:08 RBC (4.30-5.90) m/uL Hgb (13.0-17.5) gm/dL Hct (39.0-53.0) % RDW (11.5-15.5) % Lymphocytes # (1.0-4.8) k/uL Chloride (98-107) mmol/L Carbon Dioxide (22-30) mmol/L BUN (9-20) mg/dL Creatinine (0.66-1.25) mg/dL Glucose (74-99) mg/dL POC Glucose (mg/dL) 157 H 227 H 136 H (75-99) mg/dL 06/17/18 06/17/18 06/17/18 Range/Units 07:24 07:24 11:56 RBC 3.90 L (4.30-5.90) m/uL Hgb 10.4 L (13.0-17.5) gm/dL Hct 32.6 L (39.0-53.0) % RDW 15.8 H (11.5-15.5) % Lymphocytes # 0.5 L (1.0-4.8) k/uL Chloride 109 H (98-107) mmol/L Carbon Dioxide 20 L (22-30) mmol/L BUN 29 H (9-20) mg/dL Creatinine 1.90 H (0.66-1.25) mg/dL Glucose 127 H (74-99) mg/dL POC Glucose (mg/dL) 290 H (75-99) mg/dL Microbiology - Last 24 Hours (Table) 06/15/18 10:45 Gram Stain - Final Foot - Left Wound Culture - Final Enterobacter cloacae 06/15/18 10:45 Blood Culture - Preliminary Blood No Growth after 48 hours 06/16/18 15:09 Gram Stain - Preliminary Toe - Left First Wound Culture - Preliminary Gram Neg Bacilli 06/16/18 15:09 Anaerobic Culture - Preliminary Toe - Left First 06/15/18 14:00 Urine Culture - Final Urine,Voided Laboratory Results WBC 5.6 k/uL (3.8-10.6) 06/17/18 07:24 RBC 3.90 m/uL (4.30-5.90) L 06/17/18 07:24 Hgb 10.4 gm/dL (13.0-17.5) L 06/17/18 07:24 Hct 32.6 % (39.0-53.0) L 06/17/18 07:24 MCV 83.7 fL (80.0-100.0) 06/17/18 07:24 MCH 26.6 pg (25.0-35.0) 06/17/18 07:24 MCHC 31.8 g/dL (31.0-37.0) 06/17/18 07:24 RDW 15.8 % (11.5-15.5) H 06/17/18 07:24 Plt Count 219 k/uL (150-450) 06/17/18 07:24 Neutrophils % 77 % 06/17/18 07:24 Lymphocytes % 9 % 06/17/18 07:24 Monocytes % 6 % 06/17/18 07:24 Eosinophils % 6 % 06/17/18 07:24 Basophils % 0 % 06/17/18 07:24 Neutrophils # 4.3 k/uL (1.3-7.7) 06/17/18 07:24 Lymphocytes # 0.5 k/uL (1.0-4.8) L 06/17/18 07:24 Monocytes # 0.3 k/uL (0-1.0) 06/17/18 07:24 Eosinophils # 0.3 k/uL (0-0.7) 06/17/18 07:24 Basophils # 0.0 k/uL (0-0.2) 06/17/18 07:24 Hypochromasia Slight 06/17/18 07:24 PT 9.9 sec (9.0-12.0) 06/15/18 10:45 INR 1.0 (<1.2) 06/15/18 10:45 APTT 26.9 sec (22.0-30.0) 06/15/18 10:45 Sodium 139 mmol/L (137-145) 06/17/18 07:24 Potassium 4.5 mmol/L (3.5-5.1) 06/17/18 07:24 Chloride 109 mmol/L (98-107) H 06/17/18 07:24 Carbon Dioxide 20 mmol/L (22-30) L 06/17/18 07:24 Anion Gap 10 mmol/L 06/17/18 07:24 BUN 29 mg/dL (9-20) H 06/17/18 07:24 Creatinine 1.90 mg/dL (0.66-1.25) H 06/17/18 07:24 Est GFR (CKD-EPI)AfAm 40 (>60 ml/min/1.73 sqM) 06/17/18 07:24 Est GFR (CKD-EPI)NonAf 35 (>60 ml/min/1.73 sqM) 06/17/18 07:24 Glucose 127 mg/dL (74-99) H 06/17/18 07:24 POC Glucose (mg/dL) 290 mg/dL (75-99) H 06/17/18 11:56 POC Glu Certified Income Tax Preparer ID [place] 06/17/18 11:[address] Glu mg/dL 163 06/15/18 10:45 Hemoglobin A1c 7.3 % (4.0-6.0) H 06/15/18 10:45 Plasma Lactic Acid [place] 0.9 mmol/L (0.7-2.0) 06/15/18 10:45 Calcium 9.1 mg/dL (8.4-10.2) 06/17/18 07:24 Total Bilirubin 0.3 mg/dL (0.2-1.3) 06/15/18 10:45 AST 15 U/L (17-59) L 06/15/18 10:45 ALT 28 U/L (21-72) 06/15/18 10:45 Alkaline Phosphatase 93 U/L (38-126) 06/15/18 10:45 Total Protein 5.9 g/dL (6.3-8.2) L 06/15/18 10:45 Albumin 3.3 g/dL (3.5-5.0) L 06/15/18 10:45 Urine Color Yellow 06/15/18 14:00 Urine Appearance Clear (Clear) 06/15/18 14:00 Urine pH 5.5 (5.0-8.0) 06/15/18 14:00 Ur Specific [place] 1.010 (1.001-1.035) 06/15/18 14:00 Urine Protein 1+ (Negative) H 06/15/18 14:00 Urine Glucose (UA) 1+ (Negative) H 06/15/18 14:00 Urine Ketones Negative (Negative) 06/15/18 14:00 Urine Blood Negative (Negative) 06/15/18 14:00 Urine Nitrite Negative (Negative) 06/15/18 14:00 Urine Bilirubin Negative (Negative) 06/15/18 14:00 Urine Urobilinogen <2.0 mg/dL (<2.0) 06/15/18 14:00 Ur Leukocyte Esterase Trace (Negative) H 06/15/18 14:00 Urine WBC 2 /hpf (0-5) 06/15/18 14:00 Ur Squamous Epith Cells <1 /hpf (0-4) 06/15/18 14:00 Urine Mucus Rare /hpf (None) H 06/15/18 14:00 Microbiology 06/15/18 10:45 Foot - Left Gram Stain - Final 06/15/18 10:45 Foot - Left Wound Culture - Final Enterobacter cloacae 06/15/18 10:45 Blood Blood Culture - Preliminary No Growth after 48 hours 06/16/18 15:09 Toe - Left First Gram Stain - Preliminary 06/16/18 15:09 Toe - Left First Wound Culture - Preliminary Gram Neg Bacilli 06/16/18 15:09 Toe - Left First Anaerobic Culture - Preliminary 06/15/18 14:00 Urine,Voided Urine Culture - Final Assessment and Plan (1) Osteomyelitis of left foot Narrative/Plan: At this time the patient is comfortable since the procedure. It is just occurred a few hours ago. His appetite as well and blood sugars are doing well at this time. The plan will be to monitor the cultures, hopefully we will utilize oral antibiotic therapy at discharge given that he does not want outpatient due to his antibiotic therapy and will not agree to extended care. Wound care at this time will be per the surgeon. Patient will need to offload to have any further healing. Would also continue with his improving glucose control and his hemoglobin A1c has come down from 8.3-7.3 so far this year. Accommodation wound care offloading antibiotic therapy will hopefully allow some further improvement. 06/17/2018 the patient is comfortable. The dressing is changed in the tissue is noted to have some bleeding after his walking on the site. This is cleansed and Aquacel dressing is reapplied. The patient is currently receiving antibiotic therapy with Zosyn. Fortunately blood cultures are negative so far. If she gets ready for discharge will work with the discharge planners to the most appropriate course of therapy at the time of his discharge to the extended care to receive his therapy. Current Visit: Yes Status: Acute Code(s): M86.9 - OSTEOMYELITIS, UNSPECIFIED SNOMED Code(s): 0264909439011209 (2) Cellulitis and abscess of foot Current Visit: No Status: Acute Code(s): L03.119 - CELLULITIS OF UNSPECIFIED PART OF LIMB; L02.619 - CUTANEOUS ABSCESS OF UNSPECIFIED FOOT SNOMED Code(s): 124988958
[2018-06-17 17:16] LABS: Glucose,Whole Blood 140 mg/dL (75-99)
[2018-06-17 21:13] LABS: Glucose,Whole Blood 155 mg/dL (75-99)
[2018-06-17] MEDS: ATORVASTATIN 10 MG TAB PO SCH (21:19)
[2018-06-18] MEDS: PIPERACILLIN-TAZOBACTAM 3.375 GM in DEXTROSE/WATER 1 50ML.BAG IVPB SCH ×3 (00:06→15:28)
[2018-06-18] MEDS: SODIUM CHLORIDE 0.9% 1,000 ML IV SCH ×2 (03:36→15:34)
[2018-06-18 07:12] LABS: Glucose,Whole Blood 133 mg/dL (75-99)
[2018-06-18] MEDS: HEPARIN SODIUM,PORCINE 5,000 UNIT/ML 1 ML VIAL SQ SCH ×2 (08:19→21:53)
[2018-06-18] MEDS: ISOSORBIDE MONONITRATE ER 30 MG TAB.ER.24H PO SCH (08:19)
[2018-06-18] MEDS: PRAZOSIN 1 MG CAP PO SCH ×2 (08:19→21:53)
[2018-06-18] MEDS: MULTIVITAMINS, THERA 1 EACH TAB PO SCH (08:20)
[2018-06-18] MEDS: ASPIRIN 81 MG PO SCH (08:20)
[2018-06-18] MEDS: PANTOPRAZOLE 40 MG TABLET PO SCH (08:20)
[2018-06-18] MEDS: CHOLECALCIFEROL 1,000 UNIT TAB PO SCH (08:20)
[2018-06-18] MEDS: CARVEDILOL 12.5 MG TAB PO SCH ×2 (08:20→17:36)
[2018-06-18] MEDS: cloNIDine HCL 0.1 MG TAB PO SCH ×3 (08:20→21:54)
[2018-06-18] MEDS: hydrALAZINE HCL 50 MG TAB PO SCH ×3 (08:20→21:54)
[2018-06-18] MEDS: INSULIN ASPART 100 UNIT/ML 1 ML 10 ML VIAL SQ SCH ×4 (08:26→22:13)
[2018-06-18] MEDS: INSULIN NPH/REG INSULIN 70/30 300 UNIT/3 ML VIAL SQ SCH ×3 (08:26→17:34)
[2018-06-18] MEDS: NEOMYCIN-POLYMYXIN-DEXAMETH OINT 3.5 GM TUBE BOTH EYES SCH ×3 (09:37→21:53)
[2018-06-18 11:20] LABS: Basophils % (A) 0 %; Eosinophils # (A) 0.4 k/uL (0-0.7); Eosinophils % (A) 6 %; HCT 31.2 % (39.0-53.0); HGB 10.1 gm/dL (13.0-17.5); Hypochromasia Slight; Lymphocytes # (A) 0.8 k/uL (1.0-4.8); Lymphocytes % (A) 12 %; MCH 27.4 pg (25.0-35.0); MCHC 32.5 g/dL (31.0-37.0); MCV 84.4 fL (80.0-100.0); Mean Platelet Volume 8.3; Monocytes # (A) 0.4 k/uL (0-1.0); Monocytes % (A) 6 %; Neutrophils # (A) 4.9 k/uL (1.3-7.7); Neutrophils % (A) 74 %; Platelet Count 201 k/uL (150-450); RBC 3.69 m/uL (4.30-5.90); RDW 15.8 % (11.5-15.5); WBC 6.6 k/uL (3.8-10.6)
[2018-06-18 11:32] LABS: Calcium 8.9 mg/dL (8.4-10.2); Potassium 4.8 mmol/L (3.5-5.1)
[2018-06-18 12:07] LABS: Glucose,Whole Blood 221 mg/dL (75-99)
--- NOTE | 2018-06-18 15:21 | PN ---
PROGRESS NOTE DATE OF SERVICE: 06/18/2018 This 73-year-old gentleman who was admitted with left foot infection is on broad- spectrum IV antibiotics. Patient underwent debridement and surgery by Dr. Franco. No chest pain. No palpitations. No fever. EXAM: Alert and oriented x3. Pulse 96, blood pressure 150/91, respiration 18, temperature 97.8, pulse ox 97% on room air. HEENT: Conjunctivae normal. NECK: No jugular venous distention. CARDIOVASCULAR: S1, S2. RESPIRATORY: Breath sounds diminished in the bases. A few scattered rhonchi and crackles. ABDOMEN: Soft, nontender. No mass palpable. LEGS: No edema. No swelling. NERVOUS SYSTEM: No focal deficits. LABS: WBC 6.2, hemoglobin 10.1, creatinine is 2. ASSESSMENT: 1. Acute left foot infection, osteomyelitis status post debridement of the stump of left big toe and excision of the head of the first metatarsal. 2. Enterobacter cloacae and gram-negative bacilli from the cultures. 3. Diabetes mellitus type 2. 4. Peripheral neuropathy. 5. Anemia. 6. Hyponatremia. 7. Increased creatinine with chronic kidney stage III. 8. History of congestive heart failure. 9. History of deep vein thrombosis. 10.History hypertension. 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 12.History of hernia repair. RECOMMENDATIONS AND DISCUSSION: I recommend to continue current management and symptomatic treatment. Otherwise at this time I recommend continue the antibiotics. Await final reports. Closely follow with Infectious Disease and Vascular Surgery. Monitor blood sugars closely. Home with IV antibiotics versus p.o. antibiotics. Further recommendations to follow. MMODL / IJN: [id number] /
[2018-06-18 17:16] LABS: Glucose,Whole Blood 141 mg/dL (75-99)
[2018-06-18 21:08] LABS: Glucose,Whole Blood 165 mg/dL (75-99)
[2018-06-18] MEDS: ATORVASTATIN 10 MG TAB PO SCH (21:53)
[2018-06-19] MEDS: PIPERACILLIN-TAZOBACTAM 3.375 GM in DEXTROSE/WATER 1 50ML.BAG IVPB SCH ×3 (00:07→15:55)
[2018-06-19 06:28] VITALS: BP 173/80; PULSE 67; RESP 18; TEMP 98.4
[2018-06-19 07:13] LABS: Glucose,Whole Blood 103 mg/dL (75-99)
[2018-06-19 08:51] LABS: Basophils % (A) 1 %; Eosinophils # (A) 0.5 k/uL (0-0.7); Eosinophils % (A) 7 %; HCT 33.9 % (39.0-53.0); HGB 10.7 gm/dL (13.0-17.5); Hypochromasia Slight; Lymphocytes # (A) 0.7 k/uL (1.0-4.8); Lymphocytes % (A) 11 %; MCH 26.7 pg (25.0-35.0); MCHC 31.6 g/dL (31.0-37.0); MCV 84.5 fL (80.0-100.0); Mean Platelet Volume 8.7; Monocytes # (A) 0.4 k/uL (0-1.0); Monocytes % (A) 6 %; Neutrophils # (A) 4.9 k/uL (1.3-7.7); Neutrophils % (A) 74 %; Platelet Count 200 k/uL (150-450); RBC 4.02 m/uL (4.30-5.90); RDW 15.8 % (11.5-15.5); WBC 6.6 k/uL (3.8-10.6)
[2018-06-19 09:06] LABS: Calcium 8.7 mg/dL (8.4-10.2); Potassium 4.7 mmol/L (3.5-5.1)
[2018-06-19] MEDS: PANTOPRAZOLE 40 MG TABLET PO SCH (09:21)
[2018-06-19] MEDS: ISOSORBIDE MONONITRATE ER 30 MG TAB.ER.24H PO SCH (09:21)
[2018-06-19] MEDS: PRAZOSIN 1 MG CAP PO SCH (09:21)
[2018-06-19] MEDS: hydrALAZINE HCL 50 MG TAB PO SCH ×2 (09:21→15:54)
[2018-06-19] MEDS: CALCITRIOL 0.25 MCG CAP PO SCH (09:22)
[2018-06-19] MEDS: NEOMYCIN-POLYMYXIN-DEXAMETH OINT 3.5 GM TUBE BOTH EYES SCH ×2 (09:22→15:54)
[2018-06-19] MEDS: CARVEDILOL 12.5 MG TAB PO SCH ×2 (09:22→17:54)
[2018-06-19] MEDS: MULTIVITAMINS, THERA 1 EACH TAB PO SCH (09:22)
[2018-06-19] MEDS: INSULIN NPH/REG INSULIN 70/30 300 UNIT/3 ML VIAL SQ SCH ×3 (09:22→17:57)
[2018-06-19] MEDS: HEPARIN SODIUM,PORCINE 5,000 UNIT/ML 1 ML VIAL SQ SCH (09:22)
[2018-06-19] MEDS: CHOLECALCIFEROL 1,000 UNIT TAB PO SCH (09:22)
[2018-06-19] MEDS: cloNIDine HCL 0.1 MG TAB PO SCH ×2 (09:22→15:54)
[2018-06-19] MEDS: ASPIRIN 81 MG PO SCH (09:22)
[2018-06-19] MEDS: SODIUM CHLORIDE 0.9% 1,000 ML IV SCH ×2 (09:23→17:58)
[2018-06-19] MEDS: INSULIN ASPART 100 UNIT/ML 1 ML 10 ML VIAL SQ SCH ×3 (09:23→17:55)
[2018-06-19 13:17] LABS: Glucose,Whole Blood 173 mg/dL (75-99)
[2018-06-19 17:21] LABS: Glucose,Whole Blood 176 mg/dL (75-99)
--- NOTE | 2018-06-19 18:01 | DS ---
DISCHARGE SUMMARY FINAL DIAGNOSES: 1. Acute left foot infection, osteomyelitis, status post debridement of the stump of the left big toe and excision of the head of the first metatarsal. 2. Enterobacter cloacae in the outpatient from the cultures. 3. Diabetes type 2. 4. Peripheral neuropathy. 5. Anemia. 6. Hyponatremia. 7. Increased creatinine with chronic kidney stage 3. 8. History of congestive heart failure. 9. History of deep venous thrombosis. 10.Hypertension. 11.History of MRSA, VRE. 12.History of hernia repair. DISCHARGE DISPOSITION: The patient is being discharged in stable condition with guarded prognosis. HISTORY OF PRESENT ILLNESS: This 73-year-old gentleman with a past medical history of multiple medical problems was admitted with acute left foot infection, osteomyelitis. Dr. Franco saw the patient and performed debridement of the stump of the left big toe and as well as resection of the head of the metatarsal. The patient was also seen by Dr. Cowart. Antibiotics coordinated. Enterobacter cloacae grown from the cultures. On exam, vitals are stable. CARDIOVASCULAR: S1, S2 muffled. ABDOMEN: Soft. NERVOUS SYSTEM: No focal deficits. DISCHARGE ADVICE: 1. Diet is cardiac. 2. Activity limited until followup. 3. Follow with Dr. Jack De Jesus in 2 to 3 days. 4. Follow with Dr. Franco and Dr. Cowart as recommended. 5. Home care is being arranged. MEDICATIONS: 1. Calcium. 2. Lipitor 10 mg q.h.s. 3. Rocaltrol 0.25 mg p.o. Tuesday, Tuesday. 4. Coreg 25 mg p.o. b.i.d. 5. Vitamin D3 2000 daily. 6. Catapres 0.1 p.o. b.i.d. 7. Insulin 70/30, 15 units a.c. t.i.d. 8. Multivitamins. 9. Neomycin topical application. 10.Minipress 1 p.o. b.i.d. 11.Tylenol 650 q.6h p.r.n. 12.Aspirin 81 mg p.o. daily. 13.Hydralazine 50 mg p.o. t.i.d. 14.Imdur ER 30 mg p.o. daily. 15.Nitrostat 0.4 mg p.r.n.. 16.Bactrim DS 1 p.o. b.i.d. for 2 weeks. Followup labs of CBC and BMP with Dr. Jack De Jesus. Once again the patient is discharged in stable condition with guarded prognosis. Total time taken 35 minutes. MMODL / IJN: [id number] /
== END 2018-06-19 18:56 | DRG 504 ==
LOC: EC 09:54 → 4MS4W 12:43
PROVIDERS: ADMIT Internal Medicine; ATTEND Internal Medicine
PROC: 0Y6Q0Z0 Detachment at Left 1st Toe, Complete, Open Approach (ICD-10-PCS; principal; 2018-06-16 09:45)
DX: T87.44 Infection of amputation stump, left lower extremity (principal); M86.9 Osteomyelitis, unspecified; E11.52 Type 2 diabetes mellitus with diabetic peripheral angiopathy with gangrene; E87.1 Hypo-osmolality and hyponatremia; I13.0 Hypertensive heart and chronic kidney disease with heart failure and stage 1 through stage 4 chronic kidney disease, or unspecified chronic kidney disease; L02.612 Cutaneous abscess of left foot; L03.116 Cellulitis of left lower limb; N17.9 Acute kidney failure, unspecified; E11.69 Type 2 diabetes mellitus with other specified complication; D64.9 Anemia, unspecified; E11.22 Type 2 diabetes mellitus with diabetic chronic kidney disease; E11.319 Type 2 diabetes mellitus with unspecified diabetic retinopathy without macular edema; E11.36 Type 2 diabetes mellitus with diabetic cataract; E11.621 Type 2 diabetes mellitus with foot ulcer; E78.5 Hyperlipidemia, unspecified; H91.91 Unspecified hearing loss, right ear; I50.9 Heart failure, unspecified; N18.3 Chronic kidney disease, stage 3 (moderate); L97.529 Non-pressure chronic ulcer of other part of left foot with unspecified severity; B95.2 Enterococcus as the cause of diseases classified elsewhere; Z16.21 Resistance to vancomycin; Z79.4 Long term (current) use of insulin; Z79.82 Long term (current) use of aspirin; Z82.49 Family history of ischemic heart disease and other diseases of the circulatory system; Z86.14 Personal history of Methicillin resistant Staphylococcus aureus infection; Z86.718 Personal history of other venous thrombosis and embolism; Z87.891 Personal history of nicotine dependence; Z89.412 Acquired absence of left great toe; Z89.422 Acquired absence of other left toe(s); Z79.899 Other long term (current) drug therapy; Z88.1 Allergy status to other antibiotic agents; Z88.8 Allergy status to other drugs, medicaments and biological substances
CPT/HCPCS: 36415; 71046; 80048; 80053; 81001; 83036; 83605; 85025; 85610; 85730; 87040; 87070; 87075; 87077; 87086; 87186; 87205; 93005; 94760; 96365; 96366; 99285

== ENCOUNTER 2018-09-14 14:15 | Inpatient (IN) | payer MEDICARE ==
[2018-09-14] MEDS ORDERED: hydrALAZINE HCL 20 MG/ML 1 ML VIAL IVP STA (14:33)
[2018-09-14] MEDS ORDERED: SODIUM CHLORIDE 0.9% 1,000 ML IV STA (14:33)
--- NOTE | 2018-09-14 14:34 | ED ---
General Adult HPI - General Stated complaint: NONSTEMI, TRANSFER FROM [facility] Time Seen by Provider: 09/14/18 14:20 Source: RN notes reviewed, old records reviewed - History of Present Illness Initial comments: This Patient is a 73-year-old male presents emergency department today with the transfer from [facility]. Patient had episodes past few days we will have a blank stare in his eyes would roll back in his head. He denies any other neurological complaints and reports the episodes last only 2 minutes. He was subsequently transferred [facility]. Patient has a extensive history of diabetes, left diabetic wound with wound VAC, chronic kidney disease. Patient had a significant fall and brain bleed in February of this past year. Has history of coronary artery disease, involving multiple vessels. He is not surgical candidate due to his multiple comorbidities. Patient was found to have a elevated troponin today. 0.95. He was is significant for further evaluation. Patient reports that at this time he has no complaints. Denies any chest pain or headache. - Related Data Home Medications Medication Instructions Recorded Confirmed Atorvastatin Calcium 10 mg PO HS 08/29/16 09/14/18 cloNIDine HCL [Catapres] 0.1 mg PO BID 02/17/17 09/14/18 Cholecalciferol [Vitamin D3] 5,000 unit PO DAILY@1200 09/12/17 09/14/18 Calcitriol [Rocaltrol] 0.5 mcg PO MOFR 12/26/17 09/14/18 Carvedilol [Coreg] 25 mg PO BID 04/03/18 09/14/18 Prazosin [Minipress] 1 mg PO BID 04/03/18 09/14/18 Insulin NPH/Reg Insulin 70/30 See Protocol SQ AC-TID 06/15/18 09/14/18 [humuLIN 70/30 VIAL] Multivitamins, Thera [Multivitamin 1 tab PO DAILY@1200 06/15/18 09/14/18 (formulary)] Laakmggi-Frmkwiiqx-Tysevqhr 1 applic BOTH EYES TID 06/15/18 09/14/18 [Maxitrol Ophth Oint] Aspirin 81 mg PO DAILY@1200 09/14/18 09/14/18 Multivitamin/Iron/Folic Acid 1 tab PO DAILY@1200 09/14/18 09/14/18 [Centrum Adults Tablet] Previous Rx's Medication Instructions Recorded Isosorbide Mononitrate ER [Imdur] 30 mg PO DAILY #30 tab.er.24h 02/23/17 Nitroglycerin Sl Tabs [Nitrostat] 0.4 mg SUBLINGUAL Q5M PRN #100 tab 02/23/17 hydrALAZINE HCL [Apresoline] 50 mg PO TID #90 tab 02/23/17 Acetaminophen Tab [Tylenol] 650 mg PO Q6HR PRN tab 06/19/18 Allergies Allergy/AdvReac Type Severity Reaction Status Date / Time amlodipine Allergy Anaphylaxis Verified 09/14/18 14:48 lisinopril Allergy tongue Verified 09/14/18 14:48 swelling vancomycin Allergy Unknown Verified 09/14/18 14:48 Review of Systems ROS Statement: Those systems with pertinent positive or pertinent negative responses have been documented in the HPI. ROS Other: All systems not noted in ROS Statement are negative. Past Medical History Past Medical History: Heart Failure, Diabetes Mellitus, Deep Vein Thrombosis ( DVT), Hyperlipidemia, Hypertension Additional Past Medical History / Comment(s): per pt's "xray noted lung nodules". 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 Past Anesthesia/Blood Transfusion Reactions: Postoperative Nausea & Vomiting ( PONV) Additional Past Anesthesia/Blood Transfusion Reaction / Comment(s): never recieved blood Additional Psychological History / Comment(s): , lives in every other tuesday. no service. Has lived in [place] as well as [place]. He did spend 25 years and [place]. We're worked as a [employer]. 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 Moved back to this region so that he could be close to his 3 children. He has no significant history of alcohol or recreational drug use. No international travel. No experience. No animal exposures - Past Family History Father Family Medical History: Deep Vein Thrombosis (DVT) Additional Family Medical History / Comment(s): had valve sx- a week later from complications Mother Family Medical History: Congestive Heart Failure (CHF) Additional Family Medical History / Comment(s): phlebitis General Exam - General Exam Comments Initial Comments: 73-year-old male. Alert and oriented 3. Patient appears in no significant distress. General appearance: alert, in no apparent distress Head exam: Present: atraumatic, normocephalic, normal inspection Eye exam: Present: normal appearance ENT exam: Present: normal exam, mucous membranes moist Neck exam: Present: normal inspection. Absent: tenderness, meningismus, lymphadenopathy Respiratory exam: Present: normal lung sounds bilaterally. Absent: respiratory distress, wheezes, rales, rhonchi, stridor Cardiovascular Exam: Present: regular rate, normal rhythm, normal heart sounds. Absent: systolic murmur, diastolic murmur, rubs, gallop, clicks GI/Abdominal exam: Present: soft, normal bowel sounds. Absent: distended, tenderness, guarding, rebound, rigid Extremities exam: Present: normal inspection Back exam: Present: normal inspection Neurological exam: Present: alert, oriented X3, CN II-XII intact Psychiatric exam: Present: normal affect, normal mood Skin exam: Present: warm, dry, intact, normal color. Absent: rash Course Vital Signs 09/14/18 09/14/18 14:25 15:58 Temperature 97.8 F Pulse Rate 79 78 Respiratory 16 18 Rate Blood Pressure 180/96 154/93 O2 Sat by Pulse 98 99 Oximetry - Reevaluation(s) Reevaluation #1: 09/14/18 17:05 While in emergency department Patient has had no episodes of altered mental status. No signs of seizure-like activity. Medical Decision Making - Medical Decision Making 73-year-old male transferred from [facility] for episodes of unresponsiveness lasting one to 2 minutes over the past few days. Patient does have history of brain injury earlier this year. Has multiple comorbidities including diabetes, diabetic wound on the left foot. Patient was transferred here for further evaluation due to elevated troponin. Patient's troponin initially was 0.096.We did repeat the troponin has been decreased to 0.082. He adamantly denies any chest pain or symptoms. They did perform a computed tomography scan at [facility] which was negative for any acute process. Discussed case Dr. Mercado. We do question Patient may have a onset of seizure-like activity. We'll start the Patient on Keppra. We will admit the Patient with cardiology and neurology consult. - Lab Data Result diagrams: 09/14/18 14:44 09/14/18 14:44 Lab Results 09/14/18 09/14/18 09/14/18 Range/Units 14:44 14:44 14:44 WBC 8.4 (3.8-10.6) k/uL RBC 4.64 (4.30-5.90) m/uL Hgb 13.0 (13.0-17.5) gm/dL Hct 40.0 (39.0-53.0) % MCV 86.1 (80.0-100.0) fL MCH 28.0 (25.0-35.0) pg MCHC 32.5 (31.0-37.0) g/dL RDW 15.5 (11.5-15.5) % Plt Count 191 (150-450) k/uL Neutrophils % 86 % Lymphocytes % 7 % Monocytes % 5 % Eosinophils % 2 % Basophils % 0 % Neutrophils # 7.2 (1.3-7.7) k/uL Lymphocytes # 0.6 L (1.0-4.8) k/uL Monocytes # 0.4 (0-1.0) k/uL Eosinophils # 0.2 (0-0.7) k/uL Basophils # 0.0 (0-0.2) k/uL PT (9.0-12.0) sec INR (<1.2) APTT (22.0-30.0) sec Sodium 137 (137-145) mmol/L Potassium 5.1 (3.5-5.1) mmol/L Chloride 105 (98-107) mmol/L Carbon Dioxide 21 L (22-30) mmol/L Anion Gap 11 mmol/L BUN 42 H (9-20) mg/dL Creatinine 1.88 H (0.66-1.25) mg/dL Est GFR (CKD-EPI)AfAm 41 (>60 ml/min/1.73 sqM) Est GFR (CKD-EPI)NonAf 35 (>60 ml/min/1.73 sqM) Glucose 244 H (74-99) mg/dL Calcium 9.4 (8.4-10.2) mg/dL Magnesium 2.2 (1.6-2.3) mg/dL Total Bilirubin 0.9 (0.2-1.3) mg/dL AST 32 (17-59) U/L ALT 41 (21-72) U/L Alkaline Phosphatase 110 (38-126) U/L Total Creatine Kinase 57 (55-170) U/L CK-MB (CK-2) 2.8 H (0.0-2.4) ng/mL CK-MB (CK-2) Rel Index 4.9 Troponin I 0.082 H* (0.000-0.034) ng/mL NT-Pro-B Natriuret Pep pg/mL Total Protein 7.2 (6.3-8.2) g/dL Albumin 4.1 (3.5-5.0) g/dL Amylase 39 (30-110) U/L Lipase 40 (23-300) U/L 09/14/18 09/14/18 Range/Units 14:44 14:44 WBC (3.8-10.6) k/uL RBC (4.30-5.90) m/uL Hgb (13.0-17.5) gm/dL Hct (39.0-53.0) % MCV (80.0-100.0) fL MCH (25.0-35.0) pg MCHC (31.0-37.0) g/dL RDW (11.5-15.5) % Plt Count (150-450) k/uL Neutrophils % % Lymphocytes % % Monocytes % % Eosinophils % % Basophils % % Neutrophils # (1.3-7.7) k/uL Lymphocytes # (1.0-4.8) k/uL Monocytes # (0-1.0) k/uL Eosinophils # (0-0.7) k/uL Basophils # (0-0.2) k/uL PT 10.2 (9.0-12.0) sec INR 1.0 (<1.2) APTT 24.0 (22.0-30.0) sec Sodium (137-145) mmol/L Potassium (3.5-5.1) mmol/L Chloride (98-107) mmol/L Carbon Dioxide (22-30) mmol/L Anion Gap mmol/L BUN (9-20) mg/dL Creatinine (0.66-1.25) mg/dL Est GFR (CKD-EPI)AfAm (>60 ml/min/1.73 sqM) Est GFR (CKD-EPI)NonAf (>60 ml/min/1.73 sqM) Glucose (74-99) mg/dL Calcium (8.4-10.2) mg/dL Magnesium (1.6-2.3) mg/dL Total Bilirubin (0.2-1.3) mg/dL AST (17-59) U/L ALT (21-72) U/L Alkaline Phosphatase (38-126) U/L Total Creatine Kinase (55-170) U/L CK-MB (CK-2) (0.0-2.4) ng/mL CK-MB (CK-2) Rel Index Troponin I (0.000-0.034) ng/mL NT-Pro-B Natriuret Pep 5370 pg/mL Total Protein (6.3-8.2) g/dL Albumin (3.5-5.0) g/dL Amylase (30-110) U/L Lipase (23-300) U/L 09/14/18 17:10 EKG performed at 1451 shows normal sinus rhythm. Patient determined. Anterior. Age-indeterminate ST and T wave abnormality consider lateral ischemia. Ventricular rate of 74 bpm. Intervals 190 ms. QRS duration 104 ms. QT QTc is 442/490 ms. - Radiology Data Radiology results: report reviewed Disposition Clinical Impression: Chronic wound of extremity, NSTEMI (non-ST elevated myocardial infarction), FELI (acute kidney injury), Unresponsive episode Disposition: ADMITTED IP TO THIS HOSP Condition: Stable Is patient prescribed a controlled substance at d/c from ED?: No Referrals: Jack De Jesus MD [Primary Care Provider] - 1-2 days Time of Disposition: 17:12
[2018-09-14 15:35] LABS: Basophils % (A) 0 %; Eosinophils # (A) 0.2 k/uL (0-0.7); Eosinophils % (A) 2 %; Lymphocytes # (A) 0.6 k/uL (1.0-4.8); Lymphocytes % (A) 7 %; MCHC 32.5 g/dL (31.0-37.0); MCV 86.1 fL (80.0-100.0); Mean Platelet Volume 9.5; Monocytes # (A) 0.4 k/uL (0-1.0); Monocytes % (A) 5 %; Neutrophils # (A) 7.2 k/uL (1.3-7.7); Neutrophils % (A) 86 %; Platelet Count 191 k/uL (150-450); RBC 4.64 m/uL (4.30-5.90); RDW 15.5 % (11.5-15.5); WBC 8.4 k/uL (3.8-10.6)
[2018-09-14 15:47] LABS: Prothrombin Time 10.2 sec (9.0-12.0)
[2018-09-14 16:08] LABS: Albumin 4.1 g/dL (3.5-5.0); Calcium 9.4 mg/dL (8.4-10.2); Magnesium 2.2 mg/dL (1.6-2.3); Potassium 5.1 mmol/L (3.5-5.1); Total Bilirubin 0.9 mg/dL (0.2-1.3); Total Protein 7.2 g/dL (6.3-8.2)
[2018-09-14 16:10] LABS: Creatine Kinase MB 2.8 ng/mL (0.0-2.4)
[2018-09-14 16:13] LABS: Troponin I 0.082 ng/mL (0.000-0.034)
[2018-09-14] MEDS ORDERED: NITROGLYCERIN SL TABS 0.4 MG TAB SUBLINGUAL PRN (17:14)
[2018-09-14] MEDS ORDERED: MORPHINE SULFATE 4 MG/ML SYRINGE IV PRN (17:14)
[2018-09-14] MEDS ORDERED: levETIRAcetam IV 1,000 MG in SALINE 1 100ML.BAG IVPB STA (17:17)
[2018-09-14 22:43] LABS: Creatine Kinase MB 2.3 ng/mL (0.0-2.4)
[2018-09-14 22:45] LABS: Troponin I 0.108 ng/mL (0.000-0.034)
[2018-09-14 22:50] VITALS: BMI 27.5
[2018-09-14] MEDS ORDERED: ACETAMINOPHEN TAB 325 MG TAB PO PRN (23:04)
[2018-09-14] MEDS: hydrALAZINE HCL 50 MG TAB PO SCH (23:34)
[2018-09-14] MEDS: SODIUM CHLORIDE 0.9% 1,000 ML IV SCH (23:34)
[2018-09-14] MEDS: cloNIDine HCL 0.1 MG TAB PO SCH (23:34)
[2018-09-15 03:13] LABS: Cholesterol 121 mg/dL (<200); HDL Cholesterol 27 mg/dL (40-60); LDL Cholesterol,Calculated 59 mg/dL (0-99); Triglycerides 175 mg/dL (<150)
[2018-09-15 03:26] LABS: Creatine Kinase MB 2.1 ng/mL (0.0-2.4)
[2018-09-15 03:28] LABS: Troponin I 0.068 ng/mL (0.000-0.034)
[2018-09-15 06:19] LABS: Glucose,Whole Blood 219 mg/dL (75-99)
[2018-09-15] MEDS: INSULIN ASPART 100 UNIT/ML 1 ML 10 ML VIAL SQ SCH ×4 (06:28→21:34)
--- NOTE | 2018-09-15 07:55 | HP ---
HISTORY AND PHYSICAL DATE OF ADMISSION: 09/14/2018 DATE OF SERVICE: 09/14/2018 PRESENTING COMPLAINT: Blank stare. HISTORY OF PRESENTING COMPLAINT: This is a very pleasant 73-year-old patient with rather extensive medical history. The patient follows with Dr. De Jesus. The patient's chronic stable medical conditions include diabetes mellitus type 2 with neuropathy, hypertension, hyperlipidemia, chronic kidney disease, chronic congestive heart failure, peripheral arterial disease. The patient has had multiple infections of both the feet and currently has got a wound VAC on the left foot being followed both by Dr. Cowart and Dr. Franco. The patient also got a Ackerman in place. The patient also got known coronary artery disease, which is nonoperable. The patient is here from [place] and his is at the bedside. There was an episode today where for a minute, the patient became unresponsive, became a blank stare, eyes rolled back and afterwards patient had another 2-minute episode where patient became sweaty, confused, threw up. The patient was taken down to [facility] where EKG did showed some ST-segment depression in V2 to V6 and also some change in inferior lead. There was some troponin leak. The patient was sent down here. CT scan of the brain did not show any acute event. The patient just finished IV Cubicin course of [address] Cowart. REVIEW OF SYSTEMS: CONSTITUTIONAL: None. HEENT: None. RESPIRATORY: None. CARDIOVASCULAR: None. GASTROINTESTINAL: None. GENITOURINARY: None. MUSCULOSKELETAL: Aches and pains in the joints. Infection in the feet. DERMATOLOGICAL: As above. HEMATOLOGICAL: None. LYMPHATICS: None. PSYCHIATRY: None. NEUROLOGICAL: Numbness and tingling in both the feet and hands. PAST MEDICAL HISTORY: Diabetes mellitus type 2 causing nephropathy, retinopathy, hypertension, hyperlipidemia, chronic kidney disease, congestive heart failure from diastolic dysfunction, left foot osteomyelitis, lung nodules, history of DVTs in the legs, arm and chest, also wound on the left foot for which he has had hyperbaric chamber, wound VAC in place, diabetic retinopathy, 80% hearing loss in the right ear, infection with MRSA and VRE in the past. 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 SOCIAL HISTORY: . 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 No significant history of alcohol. Lives with his . No smoking. FAMILY HISTORY: Family history of DVT. HOME MEDICATIONS: 1. Neomycin polymyxin dexamethasone application both eyes t.i.d. 2. Multivitamin 1 tablet p.o. daily. 3. Humulin 70/30 a.c. t.i.d. 4. Tylenol 650 mg p.o. q.6 p.r.n. 5. Centrum Adults 1 tablet p.o. daily. 6. Vitamin D3, 5000 units p.o. daily. 7. Aspirin 81 mg p.o. daily. 8. Prazosin 1 mg p.o. b.i.d. 9. Nitrostat 0.4 sublingual q.5 p.r.n. 10.Imdur ER 30 mg a day. 11.Hydralazine 50 mg p.o. t.i.d. 12.Catapres 0.1 mg b.i.d. 13.Coreg 25 mg b.i.d. 14.Rocaltrol 0.5 mcg p.o. Tuesday and Tuesday. 15.Lipitor 10 mg p.o. q.h.s. ALLERGIES: Allergies to AMLODIPINE, LISINOPRIL VANCOMYCIN. PHYSICAL EXAMINATION: On examination, temperature 97.8 pulse 79, respiration 16, blood pressure 180/96, pulse ox 98% on room air. GENERAL APPEARANCE: Sitting up, tired appearing. EYES: There is some infection around the left eye, some redness on the conjunctiva. HENT: External appearance of the nose and ears. Oral cavity normal. NECK: JVD not raised. Mass not palpable. RESPIRATORY: Effort normal. Lungs are clear. CARDIOVASCULAR: First and second sounds normal. No edema. ABDOMEN: Soft, nontender. Liver and spleen not palpable. LYMPHATIC: No lymph node palpable in the neck or axillae. PSYCHIATRY: Alert and oriented x3. Mood and affect normal. NEUROLOGICAL: Decreased sensation MUSCULOSKELETAL: Amputation of 3 toes on the left foot and also on the right foot. Also there is a wound VAC on the left foot. INVESTIGATIONS: White count 8.5, hemoglobin 13. Potassium 5.1. BUN 42, creatinine 1.88. Troponin 0.082, 0.108. ProBNP 5370. EKG tracing personally reviewed from the outside hospital shows some ST-segment depression in leads V2 to V6 and also in the inferior leads. CT scan of the brain was reported as negative. ASSESSMENT: 1. Episode of patient eyes rolled back and losing consciousness for about a minute and having another episode for 2 minutes this could be transient ischemic attack or it could be a seizure episode. 2. Left foot wound with wound VAC in place being followed by Dr. Franco. 3. Diabetes mellitus type 2, chronically on insulin causing peripheral neuropathy, diabetic retinopathy. 4. Essential hypertension. 5. Hyperlipidemia. 6. Chronic kidney disease stage 3 from diabetic nephropathy and hypertensive nephrosclerosis. 7. Chronic congestive heart failure from diastolic dysfunction from underlying hypertensive heart disease, ejection fraction not known. 8. Peripheral arterial disease, severe. 9. Coronary artery disease. The patient has not been felt to be a candidate for coronary intervention. At this point, neuro checks are in place. Consultation made to Neurology, Cardiology. Dr. Franco can follow up with the wound VAC. Care was discussed with the patient and . Questions were answered. MMODL / IJN: [id number] /
[2018-09-15] MEDS ORDERED: ISOSORBIDE MONONITRATE ER 30 MG TAB.ER.24H PO SCH (09:00)
[2018-09-15] MEDS: ASPIRIN 325 MG TAB PO SCH (09:13)
[2018-09-15] MEDS: hydrALAZINE HCL 50 MG TAB PO SCH ×3 (09:13→21:33)
[2018-09-15] MEDS: cloNIDine HCL 0.1 MG TAB PO SCH ×2 (09:13→21:32)
[2018-09-15] MEDS: CARVEDILOL 12.5 MG TAB PO SCH ×2 (09:13→21:31)
[2018-09-15] MEDS: SODIUM CHLORIDE 0.9% 1,000 ML IV SCH ×3 (09:14→23:32)
--- NOTE | 2018-09-15 11:18 | P.CRDCN ---
History of Present Illness Consult date: 09/15/18 Chief complaint: Change in mental status episodes History of present illness: This is a pleasant 73-year-old gentleman with an extensive past medical history consistent off coronary artery disease, peripheral arterial disease, diabetes, hypertension, and chronic kidney disease was brought from [facility] to [facility] with intermittent episodes of change in mental status. The patient does have a significant past medical history consistent off coronary artery disease where in 2016 he was admitted to the hospital with chest discomfort and underwent a stress test and that revealed ischemia. At that point a heart catheterization was performed and revealed severe triple- vessel coronary artery disease. The patient was seen and evaluated by cardiothoracic surgeon who felt that the patient was not a candidate for surgical revascularization. He was not a candidate for percutaneous revascularization as well. The patient at that point did not have any kind of coronary revascularization and was treated medically. Beside that the patient does have severe peripheral arterial disease with evidence of critical limb ischemia of the left foot. He does have a wound on the left foot and he underwent a toe amputation in April of this year. Currently he does have a wound VAC. The patient was in his usual state of health until about a few days ago when he was sitting in his recliner waiting for his to bring him the insulin. When the arrived the patient was unconscious for few minutes. He was unresponsive where his eyes where rolled back and subsequently he became sweaty and he was confused after that. The patient did not complain of any chest pain or discomfort around episode. He feels dizzy but the dizziness seems to be chronic. No feeling of heart racing or fluttering. He is also short of breath and the shortness of breath seems to be chronic as well as and could reflect stable angina. We get involved in his care because of mildly abnormal troponin. The EKG revealed sinus rhythm with ST changes in the inferolateral lead could be quite consistent with ischemia. Beside that the blood pressure has been out of control and his systolic blood pressure this morning was more than 200 mmHg. Past Medical History Past Medical History: Heart Failure, Diabetes Mellitus, Deep Vein Thrombosis ( DVT), Hyperlipidemia, Hypertension, Syncope Additional Past Medical History / Comment(s): per pt's "xray noted lung nodules". 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 Past Anesthesia/Blood Transfusion Reactions: Postoperative Nausea & Vomiting ( PONV) Additional Past Anesthesia/Blood Transfusion Reaction / Comment(s): never recieved blood Past Psychological History: No Psychological Hx Reported Additional Psychological History / Comment(s): , lives in every other tuesday. no service. Has lived in [place] as well as [place]. He did spend 25 years and [facility]. 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 Moved back to this region so that he could be close to his 3 children. He has no significant history of alcohol or recreational drug use. No international travel. No experience. No animal exposures Smoking Status: Never smoker Past Alcohol Use History: None Reported Additional Past Alcohol Use History / Comment(s): Patient is and lives at home with his . There are no pets in the home. He does have home care set up. No service. Patient has lived in [place] and [place]. 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 Patient is moved to this area to be close to his children. Patient stopped smoking several years ago. No significant history of alcohol or recreational drug use. No international travel. No animal exposures. Past Drug Use History: None Reported - Past Family History Father Family Medical History: Deep Vein Thrombosis (DVT) Additional Family Medical History / Comment(s): had valve sx- a week later from complications Mother Family Medical History: Congestive Heart Failure (CHF) Additional Family Medical History / Comment(s): phlebitis Medications and Allergies Home Medications Medication Instructions Recorded Confirmed Type Atorvastatin Calcium 10 mg PO HS 08/29/16 09/14/18 History cloNIDine HCL [Catapres] 0.1 mg PO BID 02/17/17 09/14/18 History Isosorbide Mononitrate ER [Imdur] 30 mg PO DAILY #30 tab.er.24h 02/23/17 Rx Nitroglycerin Sl Tabs [Nitrostat] 0.4 mg SUBLINGUAL Q5M PRN #100 tab 02/23/17 Rx hydrALAZINE HCL [Apresoline] 50 mg PO TID #90 tab 02/23/17 09/14/18 Rx Cholecalciferol [Vitamin D3] 5,000 unit PO DAILY@1200 09/12/17 09/14/18 History Calcitriol [Rocaltrol] 0.5 mcg PO MOFR 12/26/17 09/14/18 History Carvedilol [Coreg] 25 mg PO BID 04/03/18 09/14/18 History Prazosin [Minipress] 1 mg PO BID 04/03/18 09/14/18 History Insulin NPH/Reg Insulin 70/30 See Protocol SQ AC-TID 06/15/18 09/14/18 History [humuLIN 70/30 VIAL] Multivitamins, Thera [Multivitamin 1 tab PO DAILY@1200 06/15/18 09/14/18 History (formulary)] Wuiupfnf-Fvaxxbcvb-Jwicyror 1 applic BOTH EYES TID 06/15/18 09/14/18 History [Maxitrol Ophth Oint] Acetaminophen Tab [Tylenol] 650 mg PO Q6HR PRN tab 06/19/18 09/14/18 Rx Aspirin 81 mg PO DAILY@1200 09/14/18 09/14/18 History Multivitamin/Iron/Folic Acid 1 tab PO DAILY@1200 09/14/18 09/14/18 History [Centrum Adults Tablet] Allergies Allergy/AdvReac Type Severity Reaction Status Date / Time amlodipine Allergy Anaphylaxis Verified 09/14/18 14:48 lisinopril Allergy tongue Verified 10/25/18 14:48 swelling vancomycin Allergy Unknown Verified 09/14/18 14:48 Physical Exam Vitals: Vital Signs Temp Pulse Pulse Resp BP BP Pulse Ox 09/15/18 08:00 97.7 F 82 18 216/105 97 09/15/18 04:00 85 16 141/65 96 09/15/18 00:18 95 18 166/90 95 09/14/18 21:54 97.6 F 74 18 175/96 99 09/14/18 21:19 18 98 09/14/18 19:00 80 18 165/93 98 09/14/18 18:40 97.6 F 66 18 167/100 98 09/14/18 15:58 78 18 154/93 99 09/14/18 14:25 97.8 F 79 16 180/96 98 Intake and Output 09/14/18 09/15/18 09/15/18 22:59 06:59 14:59 Intake Total 500 Output Total 490 400 Balance 500 -490 -400 Intake: Intake, IV Titration 500 Amount Sodium Chloride 0.9% 1, 500 000 ml @ 100 mls/hr IV . Q10H STA Rx#:[id number] Output: Urine 490 400 Other: Voiding Method Urinal Urinal # Voids 0 1 Weight 99.79 kg 105.9 kg - Constitutional General appearance: no acute distress - Respiratory Respiratory: bilateral: diminished - Cardiovascular Rhythm: regular Heart sounds: normal: S1, S2 Results 09/14/18 14:44 09/14/18 14:44 Cardiac Enzymes 09/14/18 09/14/18 09/14/18 Range/Units 14:44 14:44 21:50 AST 32 (17-59) U/L CK-MB (CK-2) 2.8 H 2.3 (0.0-2.4) ng/mL Troponin I 0.082 H* 0.108 H* (0.000-0.034) ng/mL 09/15/18 Range/Units 02:40 AST (17-59) U/L CK-MB (CK-2) 2.1 (0.0-2.4) ng/mL Troponin I 0.068 H* (0.000-0.034) ng/mL Coagulation 09/14/18 Range/Units 14:44 PT 10.2 (9.0-12.0) sec APTT 24.0 (22.0-30.0) sec Lipids 09/15/18 Range/Units 02:40 Triglycerides 175 H (<150) mg/dL Cholesterol 121 (<200) mg/dL HDL Cholesterol 27 L (40-60) mg/dL CBC 09/14/18 Range/Units 14:44 WBC 8.4 (3.8-10.6) k/uL RBC 4.64 (4.30-5.90) m/uL Hgb 13.0 (13.0-17.5) gm/dL Hct 40.0 (39.0-53.0) % Plt Count 191 (150-450) k/uL Comprehensive Metabolic Panel 09/14/18 Range/Units 14:44 Sodium 137 (137-145) mmol/L Potassium 5.1 (3.5-5.1) mmol/L Chloride 105 (98-107) mmol/L Carbon Dioxide 21 L (22-30) mmol/L BUN 42 H (9-20) mg/dL Creatinine 1.88 H (0.66-1.25) mg/dL Glucose 244 H (74-99) mg/dL Calcium 9.4 (8.4-10.2) mg/dL AST 32 (17-59) U/L ALT 41 (21-72) U/L Alkaline Phosphatase 110 (38-126) U/L Total Protein 7.2 (6.3-8.2) g/dL Albumin 4.1 (3.5-5.0) g/dL Current Medications Generic Name Dose Route Start Last Admin Trade Name Freq PRN Reason Stop Dose Admin Acetaminophen 650 mg 09/14/18 23:04 Tylenol Tab PO Q6HR PRN Mild Pain or Fever > 100.5 Aspirin 325 mg 09/15/18 09:00 09/15/18 09:13 Aspirin PO 325 mg DAILY [facility] Administration Atorvastatin Calcium 10 mg 09/15/18 21:00 Lipitor PO HS [facility] Carvedilol 25 mg 09/15/18 09:00 09/15/18 09:13 Coreg PO 25 mg BID G[facility]AM Administration Clonidine 0.1 mg 09/14/18 23:15 09/15/18 09:13 Catapres PO 0.1 mg BID G[facility]HAM Administration Hydralazine HCl 50 mg 09/14/18 23:15 09/15/18 09:13 Apresoline PO 50 mg TID GRAHAM Administration Sodium Chloride 1,000 mls @ 100 mls/hr 09/14/18 17:30 09/15/18 09:14 Saline 0.9% IV 100 mls/hr .Q10H [facility]HAM Administration Insulin Aspart 0 unit 09/15/18 07:30 09/15/18 06:28 Novolog SQ 3 unit ACHS G[facility]HAM Administration Protocol Isosorbide Mononitrate 60 mg 09/16/18 09:00 Imdur PO DAILY [facility] Morphine Sulfate 4 mg 09/14/18 17:14 Morphine Sulfate (Inj) IV Q5M PRN Chest Pain Multivitamins 1 each 09/15/18 12:00 Theragran PO DAILY@1200 [facility] Intake and Output 09/14/18 09/15/18 09/15/18 22:59 06:59 14:59 Intake Total 500 Output Total 490 400 Balance 500 -490 -400 Intake: Intake, IV Titration 500 Amount Sodium Chloride 0.9% 1, 500 000 ml @ 100 mls/hr IV . Q10H STA Rx#:[id number] Output: Urine 490 400 Other: Voiding Method Urinal Urinal # Voids 0 1 Weight 99.79 kg 105.9 kg 09/14/18 14:44 09/14/18 14:44 Assessment and Plan Assessment: Assessment #1 intermittent episodes of change in mental status. #2 known severe coronary artery disease and no revascularization was performed because the patient was unamendable to any kind of revascularization #3 known severe peripheral arterial disease with evidence of critical limb ischemia of the left foot #4 known advanced chronic kidney disease #5 diabetes type 2 #6 multiple comorbid conditions. Plan #1 arrhythmia to be ruled out as an etiology. We'll continue monitor the heart rhythm while the patient is in the hospital. Possibly he needs to have an event monitor if no significant arrhythmia noted #2 medical treatment for the mildly abnormal cardiac enzymes. The patient is known to have severe CAD but he is not a candidate for any revascularization. I would continue the aspirin, statin, and current medical treatment. Beside that the abnormal cardiac enzymes could be related to advanced chronic kidney disease. I would increase the dose of Imdur to 60 mg daily. #3 Also increase the dose of hydralazine 200 mg by mouth 3 times a day #4 obtain an echocardiogram was Doppler #5 follow-up with the patient. Overall these episodes are likely to be noncardiac. Seizure kind of activity to be ruled out as well. Thank you for allowing us participate in his care and we will continue following up with the patient
[2018-09-15 12:17] LABS: Glucose,Whole Blood 241 mg/dL (75-99)
[2018-09-15] MEDS: MULTIVITAMINS, THERA 1 EACH TAB PO SCH (12:47)
--- NOTE | 2018-09-15 15:22 | CONS ---
DATE OF CONSULTATION: 09/15/2018 This is a 73-year-old gentleman who is known to me from the [facility]. Patient has history of diabetes, history of peripheral vascular disease, history of chronic wound, both lower extremity. Patient has a wound on his left lower extremity we have been treating with collagen and VAC therapy, which will be changed twice a week. Patient came with some seizure disorder. Patient is under care of Medicine and Cardiology. PHYSICAL EXAMINATION: Patient was seen in his room, he is lying comfortably in bed. NECK: Supple, trachea central. CHEST: Clear to auscultation. ABDOMEN: Soft. Femoral pulses are present. Patient has a wound on his left lower extremity. We have been treating with collagen and VAC therapy. PLAN: Will continue with changing the VAC therapy. If patient goes home on the weekend , we will follow in the Wound Clinic. Otherwise, will follow with you. HITESH / TOBYN: [id number] / MTDD
[2018-09-15 16:45] LABS: Glucose,Whole Blood 191 mg/dL (75-99)
[2018-09-15 17:40] LABS: Hemoglobin A1C 7.5 % (4.0-6.0)
--- NOTE | 2018-09-15 19:01 | P.CNNES ---
History of Present Illness Consult date: 09/15/18 Requesting physician: Rk Crockett Reason for Consult: Unresponsive episode History of Present Illness: Patient is a pleasant 73-year-old male who is being evaluated by the neurology service on 09/15/2018 per the request of Dr. Crockett for episode of unresponsiveness. Patient does not have history of seizure. Patient does have significant history of diabetes mellitus with neuropathy, chronic kidney disease , hypertension, hyperlipidemia, CAD, peripheral arterial disease, and multiple infections of the feet and currently has a wound VAC to the left foot. Dr. Cowart and Dr. Franco are following. Patient has a Ackerman in place. Patient is not a candidate for revascularization of his coronary artery disease. Patient had episode of unresponsiveness where his eyes rolled back and he had a blank stare for approximately a minute. Patient had another episode lasting about 2 minutes and following that episode he became sweaty, confused, and vomited. Patient went to [facility] where EKG showed changes with elevated troponin. Patient came to [facility] for further evaluation. Computed tomography scan of the brain did not show any acute abnormality. Vital signs on admission were temperature 97.8, pulse rate 79, respiratory rate 16, blood pressure 180/96, and oxygen saturation 98% on room air. Labs on admission showed low lymphocyte count 0.6, BUN 42, creatinine 1.88 , glucose 244, hemoglobin A1c 7.5, and elevated troponins. Lipid panel shows elevated triglycerides of 175 and low HDL of 27. At the time of my evaluation, patient is resting comfortably in bed and appears to be in no acute distress. Review of Systems REVIEW OF SYSTEMS: Otherwise unremarkable and noncontributory. Past Medical History Past Medical History: Heart Failure, Diabetes Mellitus, Deep Vein Thrombosis ( DVT), Hyperlipidemia, Hypertension, Syncope Additional Past Medical History / Comment(s): per pt's "xray noted lung nodules". 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 Past Anesthesia/Blood Transfusion Reactions: Postoperative Nausea & Vomiting ( PONV) Additional Past Anesthesia/Blood Transfusion Reaction / Comment(s): never recieved blood Past Psychological History: No Psychological Hx Reported Additional Psychological History / Comment(s): , lives in every other tuesday. no service. Has lived in [place] as well as [place]. He did spend 25 years and [facility]. 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 Moved back to this region so that he could be close to his 3 children. He has no significant history of alcohol or recreational drug use. No international travel. No experience. No animal exposures Smoking Status: Never smoker Past Alcohol Use History: None Reported Additional Past Alcohol Use History / Comment(s): Patient is and lives at home with his . There are no pets in the home. He does have home care set up. No service. Patient has lived in [place] and [place]. 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 Patient is moved to this area to be close to his children. Patient stopped smoking several years ago. No significant history of alcohol or recreational drug use. No international travel. No animal exposures. Past Drug Use History: None Reported - Past Family History Father Family Medical History: Deep Vein Thrombosis (DVT) Additional Family Medical History / Comment(s): had valve sx- a week later from complications Mother Family Medical History: Congestive Heart Failure (CHF) Additional Family Medical History / Comment(s): phlebitis Medications and Allergies Home Medications Medication Instructions Recorded Confirmed Type Atorvastatin Calcium 10 mg PO HS 08/29/16 09/14/18 History cloNIDine HCL [Catapres] 0.1 mg PO BID 02/17/17 09/14/18 History Isosorbide Mononitrate ER [Imdur] 30 mg PO DAILY #30 tab.er.24h 02/23/17 Rx Nitroglycerin Sl Tabs [Nitrostat] 0.4 mg SUBLINGUAL Q5M PRN #100 tab 02/23/17 Rx hydrALAZINE HCL [Apresoline] 50 mg PO TID #90 tab 02/23/17 09/14/18 Rx Cholecalciferol [Vitamin D3] 5,000 unit PO DAILY@1200 09/12/17 09/14/18 History Calcitriol [Rocaltrol] 0.5 mcg PO MOFR 12/26/17 09/14/18 History Carvedilol [Coreg] 25 mg PO BID 04/03/18 09/14/18 History Prazosin [Minipress] 1 mg PO BID 04/03/18 09/14/18 History Insulin NPH/Reg Insulin 70/30 See Protocol SQ AC-TID 06/15/18 09/14/18 History [humuLIN 70/30 VIAL] Multivitamins, Thera [Multivitamin 1 tab PO DAILY@1200 06/15/18 09/14/18 History (formulary)] Fzsrvrun-Lvywsjrqe-Minwjotd 1 applic BOTH EYES TID 06/15/18 09/14/18 History [Maxitrol Ophth Oint] Acetaminophen Tab [Tylenol] 650 mg PO Q6HR PRN tab 06/19/18 09/14/18 Rx Aspirin 81 mg PO DAILY@1200 09/14/18 09/14/18 History Multivitamin/Iron/Folic Acid 1 tab PO DAILY@1200 09/14/18 09/14/18 History [Centrum Adults Tablet] Allergies Allergy/AdvReac Type Severity Reaction Status Date / Time amlodipine Allergy Anaphylaxis Verified 09/14/18 14:48 lisinopril Allergy tongue Verified 09/14/18 14:48 swelling vancomycin Allergy Unknown Verified 09/14/18 14:48 Physical Examination - Vital Signs Vital Signs: Vital Signs Temp Pulse Pulse Resp BP BP Pulse Ox 09/15/18 16:00 16 09/15/18 15:38 97.9 F 77 16 169/80 98 09/15/18 11:10 98 F 71 18 133/63 95 09/15/18 08:00 97.7 F 82 18 216/105 97 09/15/18 04:00 85 16 141/65 96 09/15/18 00:18 95 18 166/90 95 09/14/18 21:54 97.6 F 74 18 175/96 99 09/14/18 21:19 18 98 09/14/18 19:00 80 18 165/93 98 09/14/18 18:40 97.6 F 66 18 167/100 98 Intake and Output 09/15/18 09/15/18 09/15/18 06:59 14:59 22:59 Intake Total 240 240 Output Total 490 400 Balance -490 -160 240 Intake: Oral 240 240 Output: Urine 490 400 Other: Voiding Method Urinal Urinal # Voids 1 200 Weight 105.9 kg PHYSICAL EXAM: GENERAL APPEARANCE: Patient is a well-developed, male who appears to be in no acute distress. HEENT: Normocephalic, atraumatic, no facial asymmetry is seen. Neck is supple with no masses felt. CARDIOVASCULAR: Regular rate and rhythm. ABDOMEN: Nontender, nondistended. EXTREMITIES: Show no edema or clubbing. Patient has a wound VAC on his left foot. NEUROLOGICAL EXAM: Patient is awake, alert, and oriented 3. Speech and language are normal. Strength is full in bilateral upper extremities. Strength is 5/5 in right lower extremity and 5-/5 in left lower extremity. Sensory exam is normal to light touch in all 4 extremities. No facial asymmetry is seen on cranial nerve testing. No tremors or seizure-like activity noted. Results - Laboratory Findings CBC and BMP: 09/14/18 14:44 09/14/18 14:44 Abnormal Lab Findings: Abnormal Labs 09/14/18 09/14/18 09/14/18 14:44 14:44 14:44 Lymphocytes # 0.6 L Carbon Dioxide 21 L BUN 42 H Creatinine 1.88 H Glucose 244 H POC Glucose (mg/dL) Hemoglobin A1c Total Creatine Kinase CK-MB (CK-2) 2.8 H Troponin I 0.082 H* Triglycerides HDL Cholesterol 09/14/18 09/14/18 09/15/18 14:44 21:50 02:40 Lymphocytes # Carbon Dioxide BUN Creatinine Glucose POC Glucose (mg/dL) Hemoglobin A1c 7.5 H Total Creatine Kinase 49 L 44 L CK-MB (CK-2) Troponin I 0.108 H* 0.068 H* Triglycerides HDL Cholesterol 09/15/18 09/15/18 09/15/18 02:40 06:04 12:15 Lymphocytes # Carbon Dioxide BUN Creatinine Glucose POC Glucose (mg/dL) 219 H 241 H Hemoglobin A1c Total Creatine Kinase CK-MB (CK-2) Troponin I Triglycerides 175 H HDL Cholesterol 27 L 09/15/18 16:39 Lymphocytes # Carbon Dioxide BUN Creatinine Glucose POC Glucose (mg/dL) 191 H Hemoglobin A1c Total Creatine Kinase CK-MB (CK-2) Troponin I Triglycerides HDL Cholesterol Assessment and Plan Plan: Impression: 1. Unresponsive episode 2. Diabetes mellitus 3. Peripheral neuropathy 4. Left foot wound with wound VAC in place 5. Chronic kidney disease 6. CAD/CHF 7. Peripheral arterial disease 8. Hypertension 9. Hyperlipidemia Recommendation: It does appear patient had auras and one episode of unresponsiveness. No tonic-clonic movements have been described. Patient denies losing control of urinary sphincter. Patient denies tongue biting. Episodes lasted 1-2 minutes. Patient does not describe post ictal state following these episodes. Patient does not have history of seizure disorder. In the differential would be seizure activity as well as vascular etiology. Patient was hyperextending his neck getting eyedrops when the first episode occurred. Possible blood flow changes in position. I will order an MRA of the neck. If this is new onset seizures, I will order an MRI of the brain with and without contrast if okay with nephrology. I will order an EEG. Continue neurological checks. Continue seizure precautions. I will continue to follow with you. Further recommendations to follow. Thank you for allowing me to participate in the care of your patient. Feel free to call with any questions or concerns. I performed an examination of the patient and discussed the management with the CASE ASSISTANT. I have reviewed the CASE ASSISTANT notes and agree with the findings and plan of care.
--- NOTE | 2018-09-15 19:37 | PN ---
PROGRESS NOTE DATE OF SERVICE: 09/15/2018 PRESENTING COMPLAINT: Episode of blank stare x2. INTERVAL HISTORY: This patient with known multiple medical problems presented with episode of a blank stare and also had some troponins. The patient has known coronary artery disease which is nonoperable. Some medications were adjusted by Cardiology. Otherwise patient is doing well; did actually walk in the hallway, did tolerate her diet. Awaiting neurological input. Per Dr. Franco from Vascular, wound V.A.C. to continue. REVIEW OF SYSTEMS: Done for constitutional, cardiovascular, GI, pulmonary; relevant findings as above. CURRENT MEDICATIONS: Reviewed. Imdur was added today. Hydralazine dose was adjusted. PHYSICAL EXAMINATION: Temperature 98, pulse 71, respiration 18, blood pressure 133/63, pulse ox 95% on room air. GENERAL APPEARANCE: Sitting up. More perky. EYES: Pupils equal. Conjunctivae normal. HEENT: External appearance of nose and ears normal. Oral cavity normal. NECK: JVD not raised. Mass not palpable. RESPIRATORY: Effort normal. Lungs are clear. CARDIOVASCULAR: First and second sounds normal. No edema. ABDOMEN: Soft, non-tender. Liver and spleen not palpable. PSYCHIATRY: Alert and oriented x3. Mood and affect normal. MUSCULOSKELETAL: Wound V.A.C. on the left foot. INVESTIGATIONS: Accu-Cheks are noted. LDL 59. ASSESSMENT: 1. Coronary artery disease, inoperable. 2. Left foot wound with a wound V.A.C. in place, being followed by Dr. Franco. 3. Diabetes mellitus, type 2, chronically on insulin, causing peripheral neuropathy and diabetic retinopathy. 4. Essential hypertension. 5. Hyperlipidemia. 6. Chronic kidney disease, stage III, from diabetic nephropathy and hypertensive nephrosclerosis. 7. Chronic congestive heart failure from diastolic dysfunction from underlying hypertensive heart disease. 8. Peripheral artery disease, severe. 9. Rule out seizure activity. PLAN: Patient's hydralazine was increased. Nitrate was added. Await input from Neurology. Await EEG to be done. Care was discussed with the patient and his at the bedside. Continue current medication and treatment plan. MMODL / IJN: [id number] /
[2018-09-15 20:50] LABS: Glucose,Whole Blood 222 mg/dL (75-99)
[2018-09-15] MEDS: ATORVASTATIN 10 MG TAB PO SCH (21:31)
[2018-09-16] MEDS: INSULIN ASPART 100 UNIT/ML 1 ML 10 ML VIAL SQ SCH ×4 (06:22→21:34)
[2018-09-16 06:38] LABS: Glucose,Whole Blood 191 mg/dL (75-99)
[2018-09-16] MEDS: ASPIRIN 325 MG TAB PO SCH (08:26)
[2018-09-16] MEDS: cloNIDine HCL 0.1 MG TAB PO SCH (08:26)
[2018-09-16] MEDS: ISOSORBIDE MONONITRATE ER 60 MG TAB.ER.24H PO SCH (08:26)
[2018-09-16] MEDS: CARVEDILOL 12.5 MG TAB PO SCH ×2 (08:26→21:35)
[2018-09-16] MEDS: hydrALAZINE HCL 50 MG TAB PO SCH ×3 (08:26→21:35)
--- NOTE | 2018-09-16 09:22 | ECHOF ---
Referral Reason:nstemi MEASUREMENTS -------- HEIGHT: 190.5 cm WEIGHT: 105.7 kg BP: RVIDd: 3.0 cm (< 3.3) IVSd: 1.6 cm (0.6 - 1.1) LVIDd: 4.0 cm (3.9 - 5.3) LVPWd: 1.5 cm (0.6 - 1.1) IVSs: 1.7 cm LVIDs: 3.0 cm LVPWs: 1.7 cm LA Diam: 3.1 cm (2.7 - 3.8) LAESV Index (A-L): 26.37 ml/m Ao Diam: 4.3 cm (2.0 - 3.7) AV Cusp: 2.2 cm (1.5 - 2.6) MV E Angel: 0.35 m/s MV DecT: 593 ms MV A Angel: 0.88 m/s MV E/A Ratio: 0.40 RAP: 5.00 mmHg RVSP: 47.49 mmHg FINDINGS -------- Sinus rhythm. This was a technically difficult study with suboptimal views. The left ventricular size is normal. There is moderate concentric left ventricular hypertrophy. O verall left ventricular systolic function is normal with, an EF between 55 - 60 %. The right ventricle is normal in size and function. Normal LA size by volume 22+/-6 ml/m2. RA appears enlarged. 3 ml of Lumason was utilized for enhancement of images. Aortic valve is trileaflet and is moderately thickened. Trace amount of aortic regurgitation. Th ere is no evidence of aortic stenosis. Mild mitral annular calcification present. There is trace to mild mitral regurgitation. Trace tricuspid regurgitation present. There is mild pulmonary hypertension. The right ventricula r systolic pressure, as measured by Doppler, is 47.49mmHg. The pulmonic valve was not well visualized. The aortic root is borderline dilated. IVC Not well visulized. There is no pericardial effusion. CONCLUSIONS -------- 1. Sinus rhythm. 2. This was a technically difficult study with suboptimal views. 3. The left ventricular size is normal. 4. There is moderate concentric left ventricular hypertrophy. 5. Overall left ventricular systolic function is normal with, an EF between 55 - 60 %. 6. Normal LA size by volume 22+/-6 ml/m2. 7. RA appears enlarged. 8. 3 ml of Lumason was utilized for enhancement of images. 9. Aortic valve is trileaflet and is moderately thickened. 10. Trace amount of aortic regurgitation. 11. Mild mitral annular calcification present. 12. There is trace to mild mitral regurgitation. 13. Trace tricuspid regurgitation present. 14. There is mild pulmonary hypertension. 15. The right ventricular systolic pressure, as measured by Doppler, is 47.49mmHg. 16. The pulmonic valve was not well visualized. 17. The aortic root is borderline dilated. 18. IVC Not well visulized. 19. There is no pericardial effusion. INSTRUMENT MECHANIC: Hudson Chaidez RDCS
[2018-09-16 10:59] LABS: Calcium 8.6 mg/dL (8.4-10.2); Potassium 4.7 mmol/L (3.5-5.1)
--- NOTE | 2018-09-16 12:03 | P.NPCON ---
History of Present Illness - Reason for Consult Consult date: 09/16/18 (Nephrology) acute renal failure, chronic renal failure (Clearance for an MRI) - Chief Complaint Blank stare - History of Present Illness This is a 73-year-old gentleman coming to the hospital with a blank stare. He has CKD stage III secondary to long history of diabetes followed with Dr. Koenig as outpatient. His baseline creatinine is 1.7-2.3 MG per DL. He is currently at baseline creatinine. Recently got osteomyelitis of his left feet currently on a wound VAC and finished a course of antibiotics. Workup so far is negative currently on Keppra. Nephrology was consulted for clearance of an MRI. Currently his GFR is 35. Nausea vomiting diarrhea. Review of Systems As per HPI Constitutional: Reports as per HPI Past Medical History Past Medical History: Heart Failure, Diabetes Mellitus, Deep Vein Thrombosis ( DVT), Hyperlipidemia, Hypertension, Syncope Additional Past Medical History / Comment(s): per pt's "xray noted lung nodules". 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 Past Anesthesia/Blood Transfusion Reactions: Postoperative Nausea & Vomiting ( PONV) Additional Past Anesthesia/Blood Transfusion Reaction / Comment(s): never recieved blood Past Psychological History: No Psychological Hx Reported Additional Psychological History / Comment(s): , lives in every other tuesday. no service. Has lived in [place] as well as [place]. He did spend 25 years and [facility]. 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 Moved back to this region so that he could be close to his 3 children. He has no significant history of alcohol or recreational drug use. No international travel. No experience. No animal exposures Smoking Status: Never smoker Past Alcohol Use History: None Reported Additional Past Alcohol Use History / Comment(s): Patient is and lives at home with his . There are no pets in the home. He does have home care set up. No service. Patient has lived in [place] and [place]. 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 Patient is moved to this area to be close to his children. Patient stopped smoking several years ago. No significant history of alcohol or recreational drug use. No international travel. No animal exposures. Past Drug Use History: None Reported - Past Family History Father Family Medical History: Deep Vein Thrombosis (DVT) Additional Family Medical History / Comment(s): had valve sx- a week later from complications Mother Family Medical History: Congestive Heart Failure (CHF) Additional Family Medical History / Comment(s): phlebitis Medications and Allergies Home Medications Medication Instructions Recorded Confirmed Type Atorvastatin Calcium 10 mg PO HS 08/29/16 09/14/18 History cloNIDine HCL [Catapres] 0.1 mg PO BID 02/17/17 09/14/18 History Isosorbide Mononitrate ER [Imdur] 30 mg PO DAILY #30 tab.er.24h 02/23/17 Rx Nitroglycerin Sl Tabs [Nitrostat] 0.4 mg SUBLINGUAL Q5M PRN #100 tab 02/23/17 Rx hydrALAZINE HCL [Apresoline] 50 mg PO TID #90 tab 02/23/17 09/14/18 Rx Cholecalciferol [Vitamin D3] 5,000 unit PO DAILY@1200 09/12/17 09/14/18 History Calcitriol [Rocaltrol] 0.5 mcg PO MOFR 12/26/17 09/14/18 History Carvedilol [Coreg] 25 mg PO BID 04/03/18 09/14/18 History Prazosin [Minipress] 1 mg PO BID 04/03/18 09/14/18 History Insulin NPH/Reg Insulin 70/30 See Protocol SQ AC-TID 06/15/18 09/14/18 History [humuLIN 70/30 VIAL] Multivitamins, Thera [Multivitamin 1 tab PO DAILY@1200 06/15/18 09/14/18 History (formulary)] Afgashsj-Ejyefejvy-Gzkbgjfj 1 applic BOTH EYES TID 06/15/18 09/14/18 History [Maxitrol Ophth Oint] Acetaminophen Tab [Tylenol] 650 mg PO Q6HR PRN tab 06/19/18 09/14/18 Rx Aspirin 81 mg PO DAILY@1200 09/14/18 09/14/18 History Multivitamin/Iron/Folic Acid 1 tab PO DAILY@1200 09/14/18 09/14/18 History [Centrum Adults Tablet] Allergies Allergy/AdvReac Type Severity Reaction Status Date / Time amlodipine Allergy Anaphylaxis Verified 09/14/18 14:48 lisinopril Allergy tongue Verified 09/14/18 14:48 swelling vancomycin Allergy Unknown Verified 09/14/18 14:48 Physical Exam Vitals: Vital Signs Temp Pulse Resp BP Pulse Ox 09/16/18 08:22 96.7 F L 84 16 173/86 95 09/16/18 04:00 76 16 178/81 97 09/16/18 00:00 76 18 09/15/18 23:41 76 18 162/77 95 09/15/18 20:18 98.7 F 77 18 194/91 98 09/15/18 20:00 77 18 09/15/18 19:48 98.3 F 77 18 170/91 96 09/15/18 16:00 16 09/15/18 15:38 97.9 F 77 16 169/80 98 Intake and Output 09/15/18 09/16/18 09/16/18 22:59 06:59 14:59 Intake Total 240 Output Total 1575 Balance 240 -1575 Intake: Oral 240 Output: Urine 1575 Other: Voiding Method Urinal Urinal # Voids 1 # Emeses 1 Weight 92.8 kg Lying in bed no acute distress S1-S2 heard Lungs clear Trace edema, left jose wound VAC Results - Lab Results Most recent lab results Calcium 8.6 mg/dL (8.4-10.2) 09/16/18 10:04 Magnesium 2.2 mg/dL (1.6-2.3) 09/14/18 14:44 09/14/18 14:44 09/16/18 10:04 Assessment and Plan Assessment: #1 chronic kidney disease stage IIIB secondary to diabetic nephropathy. Creatinine currently at baseline. #2 blank stare with a concern for seizure. #3 anemia with CKD #4 metabolic acidosis secondary to chronic kidney disease #5 hypertension with chronic kidney disease #6 diabetes with end organ damage. Plan: #1 creatinine currently at baseline with a GFR of 35. Okay for to proceed with MRI with contrast. #2 add sodium bicarbonate for metabolic acidosis #3 avoid nephrotoxic agents and hypotensive episodes #4 blood pressures running high. Increase clonidine to 0.2 mg 3 times a day With the goal blood pressure off less than 140/90 #5 continue with normal saline for now. Repeat labs in the morning.
[2018-09-16 12:25] LABS: Glucose,Whole Blood 292 mg/dL (75-99)
[2018-09-16] MEDS: SODIUM CHLORIDE 0.9% 1,000 ML IV SCH ×2 (12:52→15:00)
--- NOTE | 2018-09-16 14:18 | MR ---
EXAMINATION [facility] DATE OF EXAM: 09/16/2018 COMPARISON: None. HISTORY: Altered mental status TECHNIQUE: Multiplanar, multisequence images of the brain and brainstem is performed without and with IV contras t, utilizing 9 mL intravenous Gadavist . FINDINGS: Midline structures are unremarkable. There is a normal craniocervical junction. Echoplanar diffusion imaging fails to show any restricted diffusion. The orbits are unremarkable. There is no evidence of a CP angle mass lesion. There are scattered high signal lesions in the periventricular location as well as some confluent per iventricular white matter change likely on the basis of chronic ischemic change and small vessel dise ase. Following intravenous administration of gadolinium, I do not see evidence of abnormal enhancement. IMPRESSION: 1. No acute intracranial abnormality. 2. Scattered and confluent periventricular white matter change likely on the basis of small vessel di sease and chronic ischemic change. MRA NECK: TECHNIQUE: Time of flight images focusing on the neck is performed with contrast. FINDINGS: Left vertebral artery is not visualized. There is no significant carotid stenosis on the le ft. There is very mild narrowing of the origin of the right internal carotid but this is not hemodyna mically significant. IMPRESSION: 1. ABSENCE OF VISUALIZATION OF THE LEFT VERTEBRAL ARTERY. 2. MINIMAL NARROWING OF THE PROXIMAL RIGHT ICA.
[2018-09-16] MEDS: cloNIDine HCL 0.2 MG TAB PO SCH ×3 (14:59→21:34)
[2018-09-16] MEDS: SODIUM BICARBONATE TAB 650 MG TAB PO SCH ×2 (14:59→21:35)
[2018-09-16] MEDS: MULTIVITAMINS, THERA 1 EACH TAB PO SCH (14:59)
[2018-09-16 17:16] LABS: Glucose,Whole Blood 265 mg/dL (75-99)
--- NOTE | 2018-09-16 17:24 | P.PN ---
Subjective Progress Note Date: 09/16/18 Patient is a pleasant 73-year-old male who is being followed by the neurology service for episode of unresponsiveness. Patient was given 1 g of Keppra in the emergency room. Patient does not have history of seizures. Patient does not describe seizure-like activity. No post ictal state was noted. CT scan of the brain on admission did not show any acute abnormality. Patient had EEG done and results are pending. Patient had no further episodes of unresponsiveness since admission. At the time of my evaluation, patient is resting comfortably in bed and appears to be in no acute distress. Objective - Vital Signs Vital signs: Vital Signs Temp 97.5 F L 09/16/18 15:29 Pulse 68 09/16/18 15:29 Resp 16 09/16/18 15:29 BP 168/81 09/16/18 15:29 Pulse Ox 98 09/16/18 15:29 Intake & Output 09/15/18 09/16/18 09/16/18 18:59 06:59 18:59 Intake Total 480 1290 Output Total 400 1575 850 Balance 80 -1575 440 Weight 92.8 kg Intake: Intake, IV Titration 700 Amount Sodium Chloride 0.9% 1, 700 000 ml @ 100 mls/hr IV . Q10H GRAHAM Rx#:[id number] Oral 480 590 Output: Urine 400 1575 850 Other: Voiding Method Urinal Urinal # Voids 200 1 0 # Emeses 1 - Exam PHYSICAL EXAM: GENERAL APPEARANCE: Patient is a well-developed, male who appears to be in no acute distress. HEENT: Normocephalic, atraumatic, no facial asymmetry is seen. Neck is supple with no masses felt. CARDIOVASCULAR: Regular rate and rhythm. ABDOMEN: Nontender, nondistended. EXTREMITIES: Show no edema or clubbing. NEUROLOGICAL EXAM: Patient is awake, alert, and oriented 3. Speech and language are normal. Strength is 5/5 in right lower extremity and 5-/5 in left lower extremity. Strength is full in bilateral upper extremities. Sensory exam is normal to light touch in all 4 extremities. No facial asymmetry seen on cranial nerve testing. No tremors or seizure-like activity noted. - Labs CBC & Chem 7: 09/14/18 14:44 09/16/18 10:04 Labs: Abnormal Lab Results - Last 24 Hours (Table) 09/14/18 09/15/18 09/16/18 Range/Units 14:44 20:44 06:17 Carbon Dioxide (22-30) mmol/L BUN (9-20) mg/dL Creatinine (0.66-1.25) mg/dL Glucose (74-99) mg/dL POC Glucose (mg/dL) 222 H 191 H (75-99) mg/dL Hemoglobin A1c 7.5 H (4.0-6.0) % 09/16/18 09/16/18 Range/Units 10:04 12:12 Carbon Dioxide 20 L (22-30) mmol/L BUN 37 H (9-20) mg/dL Creatinine 1.90 H (0.66-1.25) mg/dL Glucose 302 H (74-99) mg/dL POC Glucose (mg/dL) 292 H (75-99) mg/dL Hemoglobin A1c (4.0-6.0) % Assessment and Plan Plan: Impression: 1. Unresponsive episode 2. Diabetes mellitus 3. Peripheral neuropathy 4. Left foot wound with wound VAC in place 5. Chronic kidney disease 6. CAD/CHF 7. Peripheral arterial disease 8. Hypertension 9. Hyperlipidemia Recommendation: It does appear patient had an 3 episodes of unresponsiveness. No tonic-clonic movements have been described. Patient denies losing control of urinary sphincter. Patient denies tongue biting. Episodes lasted 1-2 minutes. Patient does not describe post ictal state following these episodes. Patient does not have history of seizure disorder. In the differential would be seizure activity as well as vascular etiology. Patient was hyperextending his neck getting eyedrops when the first episode occurred. Possible blood flow changes in position. MRA of the neck showed minimal narrowing of the proximal right internal carotid artery and absence of visualization of the left vertebral artery. MRI of the brain showed no acute intracranial abnormality. MRI of the brain did show scattered and confluent periventricular white matter changes likely on the basis of small vessel ischemic disease. EEG was done and results are pending. Continue neurological checks. Continue seizure precautions. I will continue to follow with you. Further recommendations to follow. I performed an examination of the patient and discussed the management with the [employer]. I have reviewed the [employer] notes and agree with the findings and plan of care.
[2018-09-16 20:46] LABS: Glucose,Whole Blood 201 mg/dL (75-99)
[2018-09-16] MEDS: ATORVASTATIN 10 MG TAB PO SCH (21:34)
--- NOTE | 2018-09-16 23:44 | PN ---
PROGRESS NOTE DATE OF SERVICE: September 16, 2018. PRESENTING COMPLAINT: Episode of decreased responsiveness. INTERVAL HISTORY: This patient presented with 2 episodes of decreased responsiveness. The patient did have a MRI MRA that did not show anything acute. EEG was pending. Otherwise, patient has been up in the hallway. The patient has a wound VAC on the left foot. REVIEW OF SYSTEMS: Done for constitutional, cardiovascular, GI, pulmonary; relevant findings as above. CURRENT MEDICATIONS: Reviewed. PHYSICAL EXAMINATION: VITAL SIGNS: Temperature 98, pulse 56, respiratory 18, blood pressure 116/87, pulse ox 96% on room air. GENERAL APPEARANCE: Sitting up, awake. EYES: Pupils equal. Conjunctivae normal. HEENT: External appearance of nose and ears normal. Oral cavity normal. NECK: JVD not raised. Mass not palpable. RESPIRATORY: Effort normal. LUNGS: Are clear. CARDIOVASCULAR: 1st and 2nd sounds normal. No edema. ABDOMEN: Soft, nontender. Liver and spleen not palpable. PSYCHIATRY: Alert and oriented times three. Mood and affect normal. MUSCULOSKELETAL: Wound VAC on the left foot. INVESTIGATIONS: BUN 37, creatinine 1.90. MRI and MRA of the brain does not show anything acute. There is no visualization of left vertebral artery. ASSESSMENT: 1. Coronary artery disease inoperable. 2. Left foot wound, wound VAC in place, being followed by Dr. Franco. 3. Diabetes mellitus type 2, chronically on insulin causing peripheral neuropathy and diabetic retinopathy. 4. Essential hypertension. 5. Hyperlipidemia. 6. Chronic kidney disease stage 3 from diabetic nephropathy and nephrosclerosis. 7. Chronic congestive heart failure from diastolic dysfunction from underlying hypertensive heart disease with EF of 55-60 percent. 8. Peripheral artery disease, severe. PLAN: Care was discussed with the patient and . Continue current medication and treatment plan. Blood pressure is still running a bit on the high side, pending EEG. Will DC the IV fluids. MMODL / IJN: [id number] /
[2018-09-17 06:23] LABS: Glucose,Whole Blood 234 mg/dL (75-99)
[2018-09-17] MEDS: INSULIN ASPART 100 UNIT/ML 1 ML 10 ML VIAL SQ SCH ×2 (06:26→13:04)
[2018-09-17 06:58] LABS: Calcium 8.5 mg/dL (8.4-10.2); Potassium 4.3 mmol/L (3.5-5.1)
[2018-09-17] MEDS: ASPIRIN 325 MG TAB PO SCH (09:26)
[2018-09-17] MEDS: cloNIDine HCL 0.2 MG TAB PO SCH ×2 (09:26→17:08)
[2018-09-17] MEDS: hydrALAZINE HCL 50 MG TAB PO SCH ×2 (09:26→17:08)
[2018-09-17] MEDS: ISOSORBIDE MONONITRATE ER 60 MG TAB.ER.24H PO SCH (09:26)
[2018-09-17] MEDS: SODIUM BICARBONATE TAB 650 MG TAB PO SCH (09:26)
[2018-09-17] MEDS: CARVEDILOL 12.5 MG TAB PO SCH (09:26)
--- NOTE | 2018-09-17 10:36 | P.PN ---
Subjective Progress Note Date: 09/17/18 Principal diagnosis: Seen and examined for the follow-up of chronic kidney disease. Had MRI done yesterday for fainting spells. Renal function stable at baseline. IV fluids stopped. No nausea vomiting or diarrhea Objective - Vital Signs Vital signs: Vital Signs Temp 98.3 F 09/16/18 20:00 Pulse 72 09/17/18 04:00 Resp 18 09/17/18 04:00 BP 172/83 09/17/18 04:00 Pulse Ox 96 09/17/18 04:00 Intake & Output 09/16/18 09/17/18 09/17/18 18:59 06:59 18:59 Intake Total 1470 Output Total 850 1650 Balance 620 -1650 Weight 107.3 kg Intake: Intake, IV Titration 700 Amount Sodium Chloride 0.9% 1, 700 000 ml @ 100 mls/hr IV . Q10H GRAHAM Rx#:[id number] Oral 770 Output: Urine 850 1650 Other: Voiding Method Urinal # Voids 0 - Exam Lying in bed no acute distress S1-S2 heard Lungs clear Soft bowel sounds present Trace edema with a wound VAC in the left jose - Labs CBC & Chem 7: 09/14/18 14:44 09/17/18 06:05 Labs: Abnormal Lab Results - Last 24 Hours (Table) 09/16/18 09/16/18 09/16/18 Range/Units 10:04 12:12 16:56 Chloride (98-107) mmol/L Carbon Dioxide 20 L (22-30) mmol/L BUN 37 H (9-20) mg/dL Creatinine 1.90 H (0.66-1.25) mg/dL Glucose 302 H (74-99) mg/dL POC Glucose (mg/dL) 292 H 265 H (75-99) mg/dL 09/16/18 09/17/18 09/17/18 Range/Units 20:44 05:58 06:05 Chloride 112 H (98-107) mmol/L Carbon Dioxide 18 L (22-30) mmol/L BUN 34 H (9-20) mg/dL Creatinine 2.04 H (0.66-1.25) mg/dL Glucose 220 H (74-99) mg/dL POC Glucose (mg/dL) 201 H 234 H (75-99) mg/dL Assessment and Plan Assessment: #1 chronic kidney disease stage IIIB secondary to diabetic nephropathy. Creatinine currently at baseline. #2 blank stare with a concern for seizure. #3 anemia with CKD #4 metabolic acidosis secondary to chronic kidney disease #5 hypertension with chronic kidney disease #6 diabetes with end organ damage. Plan: #1 creatinine currently at baseline with a GFR of 35. Had MRA with contrast awaiting results. #2 continue with sodium bicarbonate for metabolic acidosis #3 avoid nephrotoxic agents and hypotensive episodes #4 blood pressure fairly controlled. Clonidine was increased yesterday monitor closely with the goal of less than 140/90. #5 Repeat labs in the morning.
[2018-09-17 12:20] LABS: Glucose,Whole Blood 194 mg/dL (75-99)
[2018-09-17] MEDS: MULTIVITAMINS, THERA 1 EACH TAB PO SCH (13:04)
--- NOTE | 2018-09-17 13:34 | P.PN ---
Subjective This is a pleasant 73-year-old male past medical history significant for coronary artery disease, peripheral artery disease, diabetes mellitus, hypertension and chronic kidney disease. Most recent heart catheterization performed 2017 revealed severe triple-vessel coronary artery disease, he was evaluated by cardiothoracic surgery and was not a candidate for surgical revascularization. He also is not a candidate for percutaneous revascularization. We are following him this admission secondary to elevated troponins. Echocardiogram obtained reveals preserved left ventricular systolic function with ejection fraction 55-60%, mild pulmonary hypertension with RVSP 47.49 mmHg. He underwent an MRI of the brain which revealed no acute intracranial abnormality. Blood pressure 172/83 heart rate 72 afebrile maintaining oxygen saturation on room air. Nephrology increased his clonidine. Laboratory data reviewed, potassium 4.3, sodium 138, creatinine 2.04. Objective - Vital Signs Vital signs: Vital Signs Temp 98.3 F 09/16/18 20:00 Pulse 72 09/17/18 04:00 Resp 18 09/17/18 04:00 BP 172/83 09/17/18 04:00 Pulse Ox 96 09/17/18 04:00 Intake & Output 09/16/18 09/17/18 09/17/18 18:59 06:59 18:59 Intake Total 1470 Output Total 850 1650 Balance 620 -1650 Weight 107.3 kg Intake: Intake, IV Titration 700 Amount Sodium Chloride 0.9% 1, 700 000 ml @ 100 mls/hr IV . Q10H [facility] Rx#:[id number] Oral 770 Output: Urine 850 1650 Other: Voiding Method Urinal # Voids 0 - Exam GENERAL: Well-appearing, well-nourished and in no acute distress. NECK: Supple without JVD or thyromegaly. LUNGS: Breath sounds clear to auscultation bilaterally. Respiration equal and unlabored. No wheezes, rales or rhonchi. HEART: Regular rate and rhythm without murmurs, rubs or gallops. S1 and S2 heard. EXTREMITIES: Normal range of motion, no edema. No clubbing or cyanosis. Peripheral pulses intact. Wound vac in place to left foot. - Labs CBC & Chem 7: 09/14/18 14:44 09/17/18 06:05 Labs: Abnormal Lab Results - Last 24 Hours (Table) 10/27/18 10/27/18 10/28/18 Range/Units 16:56 20:44 05:58 Chloride (98-107) mmol/L Carbon Dioxide (22-30) mmol/L BUN (9-20) mg/dL Creatinine (0.66-1.25) mg/dL Glucose (74-99) mg/dL POC Glucose (mg/dL) 265 H 201 H 234 H (75-99) mg/dL 09/17/18 09/17/18 Range/Units 06:05 12:04 Chloride 112 H (98-107) mmol/L Carbon Dioxide 18 L (22-30) mmol/L BUN 34 H (9-20) mg/dL Creatinine 2.04 H (0.66-1.25) mg/dL Glucose 220 H (74-99) mg/dL POC Glucose (mg/dL) 194 H (75-99) mg/dL Assessment and Plan Assessment: ASSESSMENT Altered mental status with possible LOC Mild troponin leak Known coronary artery disease Severe peripheral arterial disease with evidence of critical limb ischemia left foot Advanced chronic kidney disease Diabetes mellitus Hypertension, uncontrolled Dyslipidemia PLAN Change aspirin to 81 mg daily from 325. Increase atorvastatin 40 mg daily. Ongoing medical management. We will continue to follow and make recommendations. Nurse Practitioner note has been reviewed, I agree with a documented findings and plan of care. Patient was seen and examined.
[2018-09-17 15:24] VITALS: PULSE 66
[2018-09-17 15:25] VITALS: BP 137/70; RESP 18; TEMP 97.6
--- NOTE | 2018-09-17 15:42 | P.PN ---
Subjective Progress Note Date: 09/17/18 Patient is a pleasant 73-year-old male who is being followed by the neurology service for episode of unresponsiveness. Patient was given 1 g of Keppra in the emergency room. Patient does not have history of seizures. Patient does not describe seizure-like activity. No post ictal state was noted. CT scan of the brain on admission did not show any acute abnormality. Patient had EEG done and results are pending. Patient had no further episodes of unresponsiveness since admission. At the time of my evaluation, patient is resting comfortably in bed and appears to be in no acute distress. 09/17/2018 Patient is a pleasant 73-year-old male who is being followed by the neurology service for episode of unresponsiveness. Patient has had no recurrence of these episodes since admission. Patient did have episode of dizziness while walking in [place] today. This is likely due to patient deconditioning. EEG showed no evidence of epileptiform discharges. At the time of my evaluation, patient's resting comfortably in bed and appears to be in no acute distress. Objective - Vital Signs Vital signs: Vital Signs Temp 97.6 F 09/17/18 12:00 Pulse 66 09/17/18 12:00 Resp 18 09/17/18 12:00 BP 137/70 09/17/18 12:00 Pulse Ox 96 09/17/18 12:00 Intake & Output 09/16/18 09/17/18 09/17/18 18:59 06:59 18:59 Intake Total 1470 Output Total 850 1650 Balance 620 -1650 Weight 107.3 kg Intake: Intake, IV Titration 700 Amount Sodium Chloride 0.9% 1, 700 000 ml @ 100 mls/hr IV . Q10H [facility] Rx#:[id number] Oral 770 Output: Urine 850 1650 Other: Voiding Method Urinal Urinal # Voids 0 - Exam PHYSICAL EXAM: GENERAL APPEARANCE: Patient is a well-developed, male who appears to be in no acute distress. HEENT: Normocephalic, atraumatic, no facial asymmetry is seen. Neck is supple with no masses felt. CARDIOVASCULAR: Regular rate and rhythm. ABDOMEN: Nontender, nondistended. EXTREMITIES: Show no edema or clubbing. NEUROLOGICAL EXAM: Patient is awake, alert, and oriented 3. Speech and language are normal. Strength is 5/5 in right lower extremity and 5-/5 in left lower extremity. Strength is full in bilateral upper extremities. Sensory exam is normal to light touch in all 4 extremities. No facial asymmetry seen on cranial nerve testing. No tremors or seizure-like activity noted. - Labs CBC & Chem 7: 09/14/18 14:44 09/17/18 06:05 Labs: Abnormal Lab Results - Last 24 Hours (Table) 09/16/18 09/16/18 09/17/18 Range/Units 16:56 20:44 05:58 Chloride (98-107) mmol/L Carbon Dioxide (22-30) mmol/L BUN (9-20) mg/dL Creatinine (0.66-1.25) mg/dL Glucose (74-99) mg/dL POC Glucose (mg/dL) 265 H 201 H 234 H (75-99) mg/dL 09/17/18 09/17/18 Range/Units 06:05 12:04 Chloride 112 H (98-107) mmol/L Carbon Dioxide 18 L (22-30) mmol/L BUN 34 H (9-20) mg/dL Creatinine 2.04 H (0.66-1.25) mg/dL Glucose 220 H (74-99) mg/dL POC Glucose (mg/dL) 194 H (75-99) mg/dL Assessment and Plan Plan: Impression: 1. Unresponsive episode 2. Diabetes mellitus 3. Peripheral neuropathy 4. Left foot wound with wound VAC in place 5. Chronic kidney disease 6. CAD/CHF 7. Peripheral arterial disease 8. Hypertension 9. Hyperlipidemia Recommendation: It does appear patient had 3 episodes of unresponsiveness. These episodes lasted maybe a minute or 2. No tonic-clonic movements have been described. Patient denies losing control of urinary sphincter. Patient denies tongue biting. Patient does not describe post ictal state following these episodes. Patient does not have history of seizure disorder. In the differential would be seizure activity as well as vascular etiology. Patient was hyperextending his neck getting eyedrops when the first episode occurred. Possible blood flow changes in position. MRA of the neck showed minimal narrowing of the proximal right internal carotid artery and absence of visualization of the left vertebral artery. MRI of the brain showed no acute intracranial abnormality. MRI of the brain did show scattered and confluent periventricular white matter changes likely on the basis of small vessel ischemic disease. EEG was normal and showed no evidence of epileptiform discharges. There is no need to start any antiepileptic medication at this time. Further neurophysiological workup can be done as an outpatient. Continue neurological checks. Patient is stable from a neurological standpoint for discharge. I will continue to follow with you on an as-needed basis. Feel free to call with any questions or concerns. I performed an examination of the patient and discussed the management with the SALES OPERATIONS ANALYST. I have reviewed the SALES OPERATIONS ANALYST notes and agree with the findings and plan of care.
[2018-09-17] MEDS ORDERED: ATORVASTATIN 40 MG TAB PO SCH (21:00)
--- NOTE | 2018-09-18 07:27 | DS ---
DISCHARGE SUMMARY DATE OF ADMISSION: 09/14/2018. DATE OF DISCHARGE: 09/17/2018 FINAL DIAGNOSES: 1. Possible transient ischemic attack. 2. Coronary artery disease, inoperable. 3. Left foot wound VAC in place, being followed by Dr. Franco. 4. Diabetes mellitus type 2, chronically on insulin causing peripheral neuropathy and diabetic retinopathy. 5. Essential hypertension. 6. Hyperlipidemia. 7. Chronic kidney disease stage III from diabetic nephropathy and nephrosclerosis. 8. Chronic congestive heart failure from diastolic dysfunction from underlying hypertensive heart disease. Ejection fraction 55%-60%. 9. Peripheral artery disease, severe. HOSPITAL COURSE: This patient has got multiple vascular problems, had 2 episodes where he his eyes rolled back and patient became less responsive. Did have a 2-D echocardiogram that showed EF of 55%-60%. MRI and MRA of the brain due to white matter changes. There was absence of visualization of the left vertebral artery. EEG as per Sudha today from Neurology did not show any seizure activity. This could have been a TIA. Care was discussed at length with the patient, his and family. Also, Sudha from Neurology cleared the patient to be discharged. He will follow up with consultants. It was discussed with the patient and because patient has decreased activity, patient is getting deconditioned every time he walks. He may get dizzy, lightheaded for the same reason. CONSULTANTS: 1. Dr. Ruth from Neurology. 2. Dr. Avila from Cardiology. 3. Dr. Franco from Vascular Surgery. 4. DrShaniqua from Nephrology. PHYSICAL EXAMINATION: Temperature 97.6 pulse 56, respiratory 18, blood pressure 137/70, pulse ox 96% on room air. LUNGS: Slightly decreased breath sounds. CARDIOVASCULAR: First and second sounds are normal. Left foot wound has got a wound VAC. INVESTIGATIONS: BUN 34, creatinine 2.04. DISCHARGE MEDICATIONS: 1. Nitrostat 0.4 sublingual q.5 p.r.n. 2. Vitamin D3 five thousand units p.o. daily. 3. Rocaltrol 0.5 mcg p.o. Tuesday, Tuesday. 4. Coreg 25 mg p.o. b.i.d. 5. Humulin 70/30 as before. 6. Multivitamin 1 tablet p.o. daily. 7. Maxitrol Ophth 0.1 application both eyes t.i.d. 8. Tylenol 650 mg q.6 p.r.n. 9. Aspirin 81 mg p.o. daily. 10.Centrum Adult 1 tablet p.o. daily. 11.Lipitor 40 mg q.h.s. 12.Imdur ER 60 mg daily. 13.Sodium bicarb 650 mg p.o. t.i.d. 14.Catapres 0.2 mg p.o. t.i.d. 15.Hydralazine 100 mg p.o. t.i.d. FOLLOWUP: Followup with Dr. De Jesus in 3 days. Follow up with Dr. Ruth in 1 week. Follow up with for Dr. Franco in 2 weeks. Discussion of discharge planning more than 35 minutes. MMODL / IJN: [id number] /
--- NOTE | 2018-09-18 08:54 | EEG ---
ELECTROENCEPHALOGRAM REPORT DATE OF SERVICE: 09/16/2018. REASON FOR TESTING: Altered mental status and seizure. DESCRIPTION OF THE PROCEDURE: This EEG was performed using a 21 channel digital electroencephalograph, following international 10-20 system. DESCRIPTION OF THE RECORDING: From the beginning of the tracing, and with patient's eyes closed, the background rhythm was mostly consisting of 8 Hz alpha frequency in the posterior occipital leads. No obvious asymmetry is seen. Photic stimulation was performed with no driving response seen. No pathological waves were elicited. Hyperventilation was not performed. Rare movement artifacts are seen. The patient remains awake throughout the tracing. No epileptiform discharges were seen. INTERPRETATION: This awake EEG can be considered within normal limits. There is no asymmetry seen. No epileptiform discharges were noticed. The absence of epileptiform discharges does not rule out the diagnosis of epilepsy; therefore clinical correlation is recommended. MMALEXA / GABY: [id number] /
[2018-09-18] MEDS ORDERED: ASPIRIN 81 MG PO SCH (09:00)
== END 2018-09-17 17:39 | disposition home or self-care (01) | DRG 69 ==
LOC: EC 14:15 → 3SCARD 18:35
PROVIDERS: ADMIT Hospitalist; ATTEND Hospitalist
DX: G45.9 Transient cerebral ischemic attack, unspecified (principal); I13.0 Hypertensive heart and chronic kidney disease with heart failure and stage 1 through stage 4 chronic kidney disease, or unspecified chronic kidney disease; I50.32 Chronic diastolic (congestive) heart failure; N17.9 Acute kidney failure, unspecified; E87.2 Acidosis; I25.10 Atherosclerotic heart disease of native coronary artery without angina pectoris; E11.42 Type 2 diabetes mellitus with diabetic polyneuropathy; E11.319 Type 2 diabetes mellitus with unspecified diabetic retinopathy without macular edema; Z79.82 Long term (current) use of aspirin; Z79.4 Long term (current) use of insulin; E78.5 Hyperlipidemia, unspecified; N18.3 Chronic kidney disease, stage 3 (moderate); E11.21 Type 2 diabetes mellitus with diabetic nephropathy; E11.51 Type 2 diabetes mellitus with diabetic peripheral angiopathy without gangrene; Z79.899 Other long term (current) drug therapy; Z88.1 Allergy status to other antibiotic agents; Z88.8 Allergy status to other drugs, medicaments and biological substances; Z82.49 Family history of ischemic heart disease and other diseases of the circulatory system; Z86.718 Personal history of other venous thrombosis and embolism; H91.91 Unspecified hearing loss, right ear; Z89.429 Acquired absence of other toe(s), unspecified side; H26.9 Unspecified cataract; Z95.828 Presence of other vascular implants and grafts; I99.8 Other disorder of circulatory system; E11.69 Type 2 diabetes mellitus with other specified complication; E11.22 Type 2 diabetes mellitus with diabetic chronic kidney disease; D63.1 Anemia in chronic kidney disease; E78.1 Pure hyperglyceridemia; I27.20 Pulmonary hypertension, unspecified; R74.8 Abnormal levels of other serum enzymes
CPT/HCPCS: 36415; 70549; 70553; 80048; 80053; 80061; 82150; 82550; 82553; 83036; 83690; 83735; 83880; 84484; 85025; 85610; 85730; 93005; 93306; 95816; 96361; 96374; 96375; 99285

== ENCOUNTER 2018-10-20 09:15 | Inpatient (IN) | payer MEDICARE ==
--- NOTE | 2018-10-20 09:51 | ED ---
General Adult HPI - General Chief complaint: Extremity Problem,Nontraumatic Stated complaint: Left foot ulcers Time Seen by Provider: 10/20/18 09:30 Source: patient, family, RN notes reviewed Mode of arrival: ambulatory Limitations: no limitations - History of Present Illness Initial comments: Patient is a pleasant 73-year-old male presenting to the emergency department requesting amputation. Patient states he has seen Dr. Franco previously. Patient states she called him today and was advised to come to the emergency department to be admitted for amputation. Patient does have 2 known ulcers of the left foot. Patient does not have much pain. Patient states he is diabetic and has poor circulation. Patient states he always has poor pulses. Patient states they do regular do wound care. Patient states there is a follow older. - Related Data Home Medications Medication Instructions Recorded Confirmed Calcitriol [Rocaltrol] 0.5 mcg PO MOFR 12/26/17 10/20/18 Carvedilol [Coreg] 25 mg PO BID 04/03/18 10/20/18 Insulin NPH/Reg Insulin 70/30 25 unit SQ AC-TID 06/15/18 10/20/18 [humuLIN 70/30 VIAL] Prazosin [Minipress] 1 mg PO Q12H 10/20/18 10/20/18 Sulfamethox-Tmp 800-160Mg [Bactrim 1 tab PO Q12HR 10/20/18 10/20/18 DS 800-160 mg] Previous Rx's Medication Instructions Recorded Nitroglycerin Sl Tabs [Nitrostat] 0.4 mg SUBLINGUAL Q5M PRN #100 tab 02/23/17 Atorvastatin [Lipitor] 40 mg PO HS #30 tab 09/17/18 Isosorbide Mononitrate ER [Imdur] 60 mg PO DAILY #30 tab.er.24h 09/17/18 Sodium Bicarbonate Tab 650 mg PO TID #60 tab 09/17/18 cloNIDine HCL [Catapres] 0.2 mg PO TID #90 tab 09/17/18 hydrALAZINE HCL [Apresoline] 100 mg PO TID #90 tab 09/17/18 Allergies Allergy/AdvReac Type Severity Reaction Status Date / Time amlodipine Allergy Anaphylaxis Verified 10/20/18 10:05 lisinopril Allergy tongue Verified 10/20/18 10:05 swelling vancomycin Allergy Unknown Verified 10/20/18 10:05 Review of Systems ROS Statement: Those systems with pertinent positive or pertinent negative responses have been documented in the HPI. ROS Other: All systems not noted in ROS Statement are negative. Constitutional: Denies: fever Eyes: Denies: eye pain ENT: Denies: ear pain Respiratory: Denies: cough Cardiovascular: Denies: chest pain Endocrine: Denies: fatigue Gastrointestinal: Denies: abdominal pain Genitourinary: Denies: dysuria Musculoskeletal: Denies: back pain Skin: Reports: as per HPI Neurological: Denies: weakness Past Medical History Past Medical History: Heart Failure, Diabetes Mellitus, Deep Vein Thrombosis ( DVT), Hyperlipidemia, Hypertension, Syncope Additional Past Medical History / Comment(s): per pt's "xray noted lung nodules". 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 Past Anesthesia/Blood Transfusion Reactions: Postoperative Nausea & Vomiting ( PONV) Additional Past Anesthesia/Blood Transfusion Reaction / Comment(s): never recieved blood Past Psychological History: No Psychological Hx Reported Smoking Status: Never smoker Past Alcohol Use History: None Reported Past Drug Use History: None Reported - Past Family History Father Family Medical History: Deep Vein Thrombosis (DVT) Additional Family Medical History / Comment(s): had valve sx- a week later from complications Mother Family Medical History: Congestive Heart Failure (CHF) Additional Family Medical History / Comment(s): phlebitis General Exam Limitations: no limitations General appearance: alert, in no apparent distress Head exam: Present: normocephalic Eye exam: Present: other (Left-sided and infra orbital skin changes from previous injury.) Neck exam: Present: normal inspection Respiratory exam: Present: normal lung sounds bilaterally Cardiovascular Exam: Present: regular rate, normal rhythm GI/Abdominal exam: Present: soft. Absent: tenderness Extremities exam: Present: other (left Foot with 2 deep ulcers. Foul odor is present. Packing is present. Previous amputated toes.) Neurological exam: Present: alert Psychiatric exam: Present: normal affect, normal mood Skin exam: Present: other (Left foot ulcers) Course Vital Signs 10/20/18 09:17 Temperature 97.6 F Pulse Rate 66 Respiratory 18 Rate Blood Pressure 154/93 O2 Sat by Pulse 99 Oximetry - Reevaluation(s) Reevaluation #1: 10/20/18 11:31 Patient and family were updated on plan. Case was discussed in detail with Dr. Franco who will consult and recommends Unasyn. He also requests consult with cardiology. Dr. Crockett has been paged for admission covering for Dr. de jesus 10/20/18 11:32 Patient does not meet sepsis criteria. EKG Findings - EKG Comments: EKG Findings:: Sinus rhythm at 63. For screening AV block with a SD of 210. QRS 106. QT 478. QTC 49. Left axis. LVH criteria. Inferior Q waves with T wave inversion. Lateral T wave inversion. Medical Decision Making - Lab Data Result diagrams: 10/20/18 10:00 10/20/18 10:00 Lab Results 10/20/18 10/20/18 10/20/18 Range/Units 10:00 10:00 10:00 WBC 5.4 (3.8-10.6) k/uL RBC 3.90 L (4.30-5.90) m/uL Hgb 11.2 L (13.0-17.5) gm/dL Hct 33.7 L (39.0-53.0) % MCV 86.3 (80.0-100.0) fL MCH 28.8 (25.0-35.0) pg MCHC 33.3 (31.0-37.0) g/dL RDW 15.1 (11.5-15.5) % Plt Count 212 (150-450) k/uL Neutrophils % 80 % Lymphocytes % 8 % Monocytes % 5 % Eosinophils % 5 % Basophils % 0 % Neutrophils # 4.3 (1.3-7.7) k/uL Lymphocytes # 0.4 L (1.0-4.8) k/uL Monocytes # 0.3 (0-1.0) k/uL Eosinophils # 0.3 (0-0.7) k/uL Basophils # 0.0 (0-0.2) k/uL PT (9.0-12.0) sec INR (<1.2) APTT (22.0-30.0) sec Sodium 139 (137-145) mmol/L Potassium 4.9 (3.5-5.1) mmol/L Chloride 111 H (98-107) mmol/L Carbon Dioxide 18 L (22-30) mmol/L Anion Gap 10 mmol/L BUN 43 H (9-20) mg/dL Creatinine 2.40 H (0.66-1.25) mg/dL Est GFR (CKD-EPI)AfAm 30 (>60 ml/min/1.73 sqM) Est GFR (CKD-EPI)NonAf 26 (>60 ml/min/1.73 sqM) Glucose 124 H (74-99) mg/dL Plasma Lactic Acid Pablito 1.1 (0.7-2.0) mmol/L Calcium 9.1 (8.4-10.2) mg/dL Total Bilirubin 0.4 (0.2-1.3) mg/dL AST 20 (17-59) U/L ALT 26 (21-72) U/L Alkaline Phosphatase 93 (38-126) U/L Total Protein 6.6 (6.3-8.2) g/dL Albumin 3.8 (3.5-5.0) g/dL 10/20/18 Range/Units 10:00 WBC (3.8-10.6) k/uL RBC (4.30-5.90) m/uL Hgb (13.0-17.5) gm/dL Hct (39.0-53.0) % MCV (80.0-100.0) fL MCH (25.0-35.0) pg MCHC (31.0-37.0) g/dL RDW (11.5-15.5) % Plt Count (150-450) k/uL Neutrophils % % Lymphocytes % % Monocytes % % Eosinophils % % Basophils % % Neutrophils # (1.3-7.7) k/uL Lymphocytes # (1.0-4.8) k/uL Monocytes # (0-1.0) k/uL Eosinophils # (0-0.7) k/uL Basophils # (0-0.2) k/uL PT 10.2 (9.0-12.0) sec INR 1.0 (<1.2) APTT 25.9 (22.0-30.0) sec Sodium (137-145) mmol/L Potassium (3.5-5.1) mmol/L Chloride (98-107) mmol/L Carbon Dioxide (22-30) mmol/L Anion Gap mmol/L BUN (9-20) mg/dL Creatinine (0.66-1.25) mg/dL Est GFR (CKD-EPI)AfAm (>60 ml/min/1.73 sqM) Est GFR (CKD-EPI)NonAf (>60 ml/min/1.73 sqM) Glucose (74-99) mg/dL Plasma Lactic Acid Pablito (0.7-2.0) mmol/L Calcium (8.4-10.2) mg/dL Total Bilirubin (0.2-1.3) mg/dL AST (17-59) U/L ALT (21-72) U/L Alkaline Phosphatase (38-126) U/L Total Protein (6.3-8.2) g/dL Albumin (3.5-5.0) g/dL - Radiology Data Radiology results: image reviewed (Left foot x-ray shows previous amputations. No evidence of new osteomyelitis.) Disposition Clinical Impression: Foot ulcer, left Disposition: ADMITTED IP TO THIS HOSP Condition: Serious Is patient prescribed a controlled substance at d/c from ED?: No Referrals: Jack De Jesus MD [Primary Care Provider] - 1-2 days
[2018-10-20 10:25] LABS: Basophils % (A) 0 %; Eosinophils # (A) 0.3 k/uL (0-0.7); Eosinophils % (A) 5 %; HCT 33.7 % (39.0-53.0); HGB 11.2 gm/dL (13.0-17.5); Lymphocytes # (A) 0.4 k/uL (1.0-4.8); Lymphocytes % (A) 8 %; MCH 28.8 pg (25.0-35.0); MCHC 33.3 g/dL (31.0-37.0); MCV 86.3 fL (80.0-100.0); Mean Platelet Volume 8.8; Monocytes # (A) 0.3 k/uL (0-1.0); Monocytes % (A) 5 %; Neutrophils # (A) 4.3 k/uL (1.3-7.7); Neutrophils % (A) 80 %; Platelet Count 212 k/uL (150-450); RDW 15.1 % (11.5-15.5); WBC 5.4 k/uL (3.8-10.6)
[2018-10-20 10:29] LABS: Partial Thromboplastin Time 25.9 sec (22.0-30.0); Prothrombin Time 10.2 sec (9.0-12.0)
--- NOTE | 2018-10-20 10:33 | XR ---
EXAMINATION TYPE: XR foot complete LT DATE OF EXAM: 10/20/2018 CLINICAL HISTORY: Nonhealing wounds left foot. TECHNIQUE: Frontal, lateral, and oblique images of the left foot are obtained. COMPARISON: Left foot x-ray June 15, 2018 FINDINGS: There is chronic deformity or absence of distal one third of fifth metatarsal with adjacen t soft tissue ulcer laterally. There is amputation defect at level of second metatarsal head redemons trated. There is amputation of third toe past third metatarsal redemonstrated. There is new amputatio n defect of base of first metatarsal. Marked flexion in remnant fourth and fifth toes is redemonstrated. No new suspicious cortical destruc tion or periosteal reaction is clearly seen. There is mild to moderate midfoot arthropathy with spurr ing in narrowing seen best on lateral view. Mild to moderate diffuse subcutaneous edema is present. S oft tissue vascular calcification is noted. IMPRESSION: There is no convincing radiographic evidence for new acute osteomyelitis.
[2018-10-20 10:43] LABS: Albumin 3.8 g/dL (3.5-5.0); Calcium 9.1 mg/dL (8.4-10.2); Potassium 4.9 mmol/L (3.5-5.1); Total Bilirubin 0.4 mg/dL (0.2-1.3); Total Protein 6.6 g/dL (6.3-8.2)
[2018-10-20] MEDS ORDERED: NALOXONE 0.4 MG/ML 1 ML VIAL IV PRN (11:34)
[2018-10-20] MEDS ORDERED: AMPICILLIN-SULBACTAM 3 GM in SODIUM CHLORIDE 0.9% 100 ML IVPB ONE (11:45)
[2018-10-20] MEDS: SODIUM CHLORIDE 0.9% 1,000 ML IV SCH (12:36)
[2018-10-20] MEDS ORDERED: cloNIDine HCL 0.2 MG TAB PO STA (15:24)
[2018-10-20] MEDS ORDERED: hydrALAZINE HCL 50 MG TAB PO STA (15:25)
[2018-10-20 17:35] LABS: Glucose,Whole Blood 203 mg/dL (75-99)
[2018-10-20] MEDS ORDERED: NITROGLYCERIN SL TABS 0.4 MG TAB SUBLINGUAL PRN (17:37)
[2018-10-20] MEDS: SODIUM BICARBONATE TAB 650 MG TAB PO SCH ×2 (18:15→21:33)
[2018-10-20] MEDS: CARVEDILOL 12.5 MG TAB PO SCH (18:15)
[2018-10-20] MEDS: CALCITRIOL 0.25 MCG CAP PO SCH (18:15)
[2018-10-20 20:41] LABS: Glucose,Whole Blood 217 mg/dL (75-99)
[2018-10-20] MEDS: cloNIDine HCL 0.2 MG TAB PO SCH (21:33)
[2018-10-20] MEDS: hydrALAZINE HCL 50 MG TAB PO SCH (21:33)
[2018-10-20] MEDS: PRAZOSIN 1 MG CAP PO SCH (21:33)
[2018-10-20] MEDS: SULFAMETHOX-TMP 800-160MG 1 EACH TAB PO SCH (21:33)
[2018-10-20] MEDS: ATORVASTATIN 40 MG TAB PO SCH (21:33)
--- NOTE | 2018-10-20 23:17 | HP ---
HISTORY AND PHYSICAL DATE OF SERVICE: 10/20/2018. DATE OF ADMISSION: 10/20/2018. PRESENTING COMPLAINT: Left foot infection. HISTORY OF PRESENTING COMPLAINT: This is a pleasant 73-year-old patient with rather extensive medical problems, being followed by Dr. Jack De Jesus. Chronic stable medical conditions include diabetes mellitus type 2 with peripheral neuropathy, hypertension, hyperlipidemia, chronic kidney disease, congestive heart failure, peripheral arterial disease. Patient does follow with Dr. Cowart and Dr. Franco. Has had multiple infections of both feet. Had a wound VAC on the left foot. The patient also had a Ackerman on the right chest wall. The patient has inoperable coronary artery disease. Also the patient's vision is not good. The patient fell down and had a break injury to the left eye and he has had intervention injections for the same. The patient's left foot wound is becoming much worse and he decided to proceed with amputation. Hence, he is down here. It has been draining much worse. Denies any fever or chills. Because of neuropathy, there is no pain. Otherwise appetite is okay. REVIEW OF SYSTEMS: CONSTITUTIONAL: Tired. HEENT: Decreased vision. RESPIRATORY: None. GASTROINTESTINAL: None. GENITOURINARY: None. MUSCULOSKELETAL: Pain in the joints. SKIN: Infection of the left foot. DERMATOLOGIC: As above. HEMATOLOGICAL: None. LYMPHATICS: None. PSYCHIATRY: A bit anxious. NEUROLOGICAL: Numbness and tingling in both the hands and feet. PAST MEDICAL HISTORY: Diabetes mellitus type 2 causing nephropathy, retinopathy, hypertension, hyperlipidemia, chronic kidney disease, CHF from diastolic dysfunction, left foot osteomyelitis, lung nodules, history of DVTs in the arms, legs, chest, also wound on the left foot for which she has had hyperbaric chamber wound VAC, diabetic retinopathy, 80% hearing loss in the right ear, infections including MRSA and VRE. 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 SOCIAL HISTORY: . 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 No other significant history of alcohol. Lives with his . No smoking. FAMILY HISTORY: DVT. HOME MEDICATIONS: 1. Hydralazine 100 mg p.o. t.i.d. 2. Catapres 0.2 mg t.i.d. 3. Bactrim DS 1 tablet p.o. every 12 hours. 4. Sodium bicarb 650 mg p.o. t.i.d. 5. Minipress 100 mg every 12. 6. Nitrostat 0.4 sublingual every 5 p.r.n. 7. Imdur ER 60 mg a day. 8. Humulin 70/30, 25 units subcu with meals t.i.d. 9. Coreg 25 mg p.o. b.i.d. 10.Rocaltrol 0.5 mg p.o. on Mondays and Fridays. 11.Lipitor 40 mg at bedtime. ALLERGIES: AMLODIPINE, LISINOPRIL, VANCOMYCIN. PHYSICAL EXAMINATION: Temperature 97.4, pulse 62, respiratory rate 18, blood pressure 178/96, pulse ox 98% on room air. GENERAL APPEARANCE: Average built. BMI 27.5. Lying in bed. Tired-appearing. EYES: Pupils equal. Some peeling scar tissue on the left eye. NECK: JVD not raised. Mass not palpable. Respiratory effort normal. LUNGS: Decreased breath sounds. CARDIOVASCULAR: 1st and 2nd sounds normal. No edema. ABDOMEN: Soft, nontender. Liver and spleen not palpable. LYMPHATICS: No lymph nodes palpable in the neck or axillae. PSYCHIATRY: Alert, oriented x3. Mood and affect normal. NEUROLOGIC: Pupils equal. Cranial nerves grossly intact. Decreased sensation distally. EXTREMITIES: Left foot wound more details in nursing notes and the picture in the chart. INVESTIGATIONS: White count 5.4, hemoglobin 11.2, platelets normal. Potassium 4.9, BUN 43, creatinine 2.40. ASSESSMENT: 1. Left foot wound with osteomyelitis in a patient with diabetic neuropathy, worsening, having failed outpatient treatment. The patient is now contemplating amputation, which was offered before. 2. Diabetes mellitus type 2, chronically on insulin causing peripheral neuropathy and diabetic retinopathy. 3. Essential hypertension. 4. Hyperlipidemia. 5. Chronic kidney disease stage 3 from diabetic nephropathy and hypertensive nephrosclerosis. 6. Chronic congestive heart failure from diastolic dysfunction from underlying hypertensive heart disease. EF not known. 7. Peripheral artery disease, severe. 8. Coronary artery disease. The patient is not felt to be a candidate for coronary intervention. PLAN: Home medications are resumed. Lovenox for DVT prophylaxis. Care was discussed with the patient. Consultation is made to Cardiology, Vascular Surgery Dr. Franco, and Infectious Disease Dr. Cowart. Given patient's poor and limited exercise tolerance and inoperable coronary artery disease, the patient of course is a high risk for any form of surgery, but these are relative contraindications as the patient is inoperable case. The patient will just have to accept the high risk if he decides to proceed with surgery, which appears to be imminent now. Otherwise, the foot itself can become a source of sepsis for the entire body. Care was discussed in detail with the patient. Questions were answered. MMODL / IJN: [id number] /
[2018-10-20] MEDS: ENOXAPARIN 40 MG/0.4 ML SYRINGE SQ SCH (23:25)
[2018-10-20] MEDS: AMPICILLIN-SULBACTAM 3 GM in SODIUM CHLORIDE 0.9% 100 ML IVPB SCH (23:45)
[2018-10-21 07:51] LABS: Glucose,Whole Blood 177 mg/dL (75-99)
[2018-10-21] MEDS: CARVEDILOL 12.5 MG TAB PO SCH ×2 (08:01→16:12)
[2018-10-21] MEDS: INSULN ASP PRT/INSULIN ASPART 100 UNIT/ML 10 ML VIAL SQ SCH ×3 (08:01→18:06)
[2018-10-21] MEDS: hydrALAZINE HCL 50 MG TAB PO SCH ×3 (08:02→23:29)
[2018-10-21] MEDS: cloNIDine HCL 0.2 MG TAB PO SCH ×3 (08:02→23:31)
[2018-10-21] MEDS: ISOSORBIDE MONONITRATE ER 60 MG TAB.ER.24H PO SCH (08:02)
[2018-10-21] MEDS: SULFAMETHOX-TMP 800-160MG 1 EACH TAB PO SCH ×2 (08:03→23:30)
[2018-10-21] MEDS: SODIUM BICARBONATE TAB 650 MG TAB PO SCH ×3 (08:03→23:30)
[2018-10-21] MEDS: PRAZOSIN 1 MG CAP PO SCH ×2 (08:03→23:30)
[2018-10-21] MEDS: AMPICILLIN-SULBACTAM 3 GM in SODIUM CHLORIDE 0.9% 100 ML IVPB SCH ×3 (08:37→23:50)
[2018-10-21] MEDS: SODIUM CHLORIDE 0.9% 1,000 ML IV SCH (11:13)
[2018-10-21 12:04] LABS: Glucose,Whole Blood 139 mg/dL (75-99)
--- NOTE | 2018-10-21 13:56 | P.CRDCN ---
History of Present Illness History of present illness: This is a pleasant 73-year-old male past medical history significant for significant multivessel coronary artery disease, hypertension, chronic kidney disease, dyslipidemia, diabetes mellitus, chronic lower extremity wound on the left foot and peripheral vascular disease. He follows with Dr. Murillo in the office. She was sent to the hospital yesterday from the wound clinic secondary to chronic nonhealing wound of the left foot with recommendations for [id number] amputation tomorrow. Denies symptoms of chest discomfort, shortness of breath, dizziness or palpitations. He says for the last 3 years he has become rather deconditioned secondary to becoming more sedentary due to his foot wound. Due to this he does feel short of breath at times with exertion. He denies PND or orthopnea. EKG reveals sinus mechanism with first-degree AV block T-wave inversions noted in the inferior leads as well as ST depression in the lateral leads with T-wave inversions. No acute changes from previous EKGs on file. Laboratory data reviewed, to be VC 4.5, hemoglobin 11.2, platelets 212, sodium 139, potassium 4.9, creatinine 2.4. Current cardiac medications include atorvastatin 40 mg daily, carvedilol 25 mg twice a day, Imdur 60 mg daily, prazosin 1 mg twice a day, clonidine 0.2 mg 3 times a day and hydralazine 100 mg 3 times a day. Most recent echocardiogram obtained reveals preserved left ventricular systolic function with ejection fraction 55-60%. Catheterization performed 2017 reveals left main without significant obstructive disease LAD 20-30% plaque proximally as well as 70-80% in the mid segment, circumflex artery with a 70-80% plaque noted in the OM vessels 90% plaque noted in the second OM proximally the third OM 90% for approximately, 80 % stenosis noted in the midsegment RCA. He is not a candidate for surgical intervention is on maximum medical therapy. At the time of my exam: CONSTITUTIONAL: Denies fever. Denies chills. EYES: Denies blurred vision. Denies vision changes. Denies eye pain. EARS, NOSE, MOUTH & THROAT: Denies headache. Denies sore throat. Denies ear pain. CARDIOVASCULAR: Denies chest pain. Denies shortness of breath. Denies orthopnea. Denies PND. Denies palpitations. RESPIRATORY: Denies cough. GASTROINTESTINAL: Denies abdominal pain. Denies diarrhea. Denies constipation. Denies nausea. Denies vomiting. MUSCULOSKELETAL: Denies myalgias. INTEGUMENTARY: Denies pruitis. Denies rash. NEUROLOGIC: Denies numbness. Denies tingling. Denies weakness. PSYCHIATRIC: Denies anxiety. Denies depression. ENDOCRINE: Denies fatigue. Denies weight change. Denies polydipsia. Denies polyurina. GENITOURINARY: Denies burning, hematuria or urgency with micturation. HEMATOLOGIC: Denies history of anemia. Denies bleeding. Blood pressure 163/93 heart rate 79 afebrile maintaining oxygen saturation on room air. GENERAL: This is a 73-year-old male in no apparent distress at the time of my examination. HEENT: Head is atraumatic, normocephalic. Pupils are equal, round. Sclerae anicteric. Conjunctivae are clear. Mucous membranes of the mouth are moist. Neck is supple. There is no jugular venous distention. No carotid bruit is heard. LUNGS: Clear to auscultation no wheezes, rales or rhonchi. No chest wall tenderness is noted on palpation or with deep breathing. HEART: Regular rate and rhythm without murmurs, rubs or gallops. S1 and S2 heard. ABDOMEN: Soft, nontender. Bowel sounds are heard. No organomegaly noted. EXTREMITIES: No evidence of peripheral edema and no calf tenderness noted. No pulse palpated on left lower extremity, faint on the right. Left foot is wrapped , wound not visualized. NEUROLOGIC: Patient is awake, alert and oriented x3. ASSESSMENT Chronic wound to left lower extremity requiring amputation History of multivessel coronary artery disease on maximum medical therapy Hypertension Dyslipidemia Diabetes mellitus Chronic kidney disease Positive blood cultures PLAN 2-D echocardiogram and Doppler study reviewed from August revealing preserved LV systolic function with ejection fraction 55-60%. Clinically he has no symptoms suggestive of angina or heart failure. He is currently euvolemic. Recommend optimal blood pressure control intraoperatively. He is elevated risk for surgical intervention due to his multiple co-mobid conditions however is currently stable from a cardiac perspective. We will continue to follow him in the post-operative phase. Thank you kindly for this consultation. Nurse Practitioner note has been reviewed, I agree with a documented findings and plan of care. Patient was seen and examined. Past Medical History Past Medical History: Heart Failure, Diabetes Mellitus, Deep Vein Thrombosis ( DVT), Hyperlipidemia, Hypertension, Syncope Additional Past Medical History / Comment(s): pt wants flu vaccine while here. other hx:per pt's "xray noted lung nodules". 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, L foot gr toe, 3rd &2nd toe amputated; Rfoot 3rd toe amputated, Bypass in Bilat legs, eulogio knee sx(cartilage), lt arm picc line.since removed, x3 sx total facial plastic sx and grafting done area under lt eye d/t injury, Ackerman placement.-rt upper chest Past Anesthesia/Blood Transfusion Reactions: Postoperative Nausea & Vomiting ( PONV) Additional Past Anesthesia/Blood Transfusion Reaction / Comment(s): never recieved blood Smoking Status: Never smoker - Past Family History Father Family Medical History: Deep Vein Thrombosis (DVT) Additional Family Medical History / Comment(s): had valve sx- a week later from complications Mother Family Medical History: Congestive Heart Failure (CHF) Additional Family Medical History / Comment(s): phlebitis Medications and Allergies Home Medications Medication Instructions Recorded Confirmed Type Nitroglycerin Sl Tabs [Nitrostat] 0.4 mg SUBLINGUAL Q5M PRN #100 tab 02/23/17 Rx Calcitriol [Rocaltrol] 0.5 mcg PO MOFR 12/26/17 10/20/18 History Carvedilol [Coreg] 25 mg PO BID 04/03/18 10/20/18 History Insulin NPH/Reg Insulin 70/30 25 unit SQ AC-TID 06/15/18 10/20/18 History [humuLIN 70/30 VIAL] Atorvastatin [Lipitor] 40 mg PO HS #30 tab 09/17/18 10/20/18 Rx Isosorbide Mononitrate ER [Imdur] 60 mg PO DAILY #30 tab.er.24h 09/17/18 Rx Sodium Bicarbonate Tab 650 mg PO TID #60 tab 09/17/18 10/20/18 Rx cloNIDine HCL [Catapres] 0.2 mg PO TID #90 tab 09/17/18 10/20/18 Rx hydrALAZINE HCL [Apresoline] 100 mg PO TID #90 tab 09/17/18 10/20/18 Rx Prazosin [Minipress] 1 mg PO Q12H 10/20/18 10/20/18 History Sulfamethox-Tmp 800-160Mg [Bactrim 1 tab PO Q12HR 10/20/18 10/20/18 History DS 800-160 mg] Allergies Allergy/AdvReac Type Severity Reaction Status Date / Time amlodipine Allergy Anaphylaxis Verified 10/20/18 10:05 lisinopril Allergy tongue Verified 10/20/18 10:05 swelling vancomycin Allergy Unknown Verified 10/20/18 10:05 Physical Exam Vitals: Vital Signs Temp Pulse Pulse Pulse Resp BP BP 10/21/18 05:41 96.8 F L 79 18 163/93 10/20/18 23:00 97.9 F 77 20 163/88 10/20/18 21:35 80 171/74 10/20/18 18:03 189/99 10/20/18 16:25 198/97 10/20/18 16:20 16 10/20/18 15:14 80 18 223/104 Pulse Ox 10/21/18 05:41 97 10/20/18 23:00 97 10/20/18 21:35 10/20/18 18:03 10/20/18 16:25 10/20/18 16:20 10/20/18 15:14 98 Intake and Output 10/20/18 10/21/18 10/21/18 22:59 06:59 14:59 Intake Total 100 0 Balance 100 0 Intake: Oral 100 0 Other: Voiding Method Toilet # Voids 1 1 Weight 104 kg 104 kg Results 10/20/18 10:00 10/20/18 10:00 Current Medications Generic Name Dose Route Start Last Admin Trade Name Freq PRN Reason Stop Dose Admin Atorvastatin Calcium 40 mg 10/20/18 21:00 10/20/18 21:33 Lipitor PO 40 mg HS GRAHAM Administration Calcitriol 0.5 mcg 10/20/18 18:00 10/20/18 18:15 Rocaltrol PO 0.5 mcg MOFR GRAHAM Administration Carvedilol 25 mg 10/20/18 18:00 10/21/18 08:01 Coreg PO 25 mg BID-W/MEALS GRAHAM Administration Clonidine 0.2 mg 10/20/18 22:00 10/21/18 08:02 Catapres PO 0.2 mg TID [facility] Administration Enoxaparin Sodium 40 mg 10/20/18 22:30 10/20/18 23:25 Lovenox SQ Not Given DAILY@2100 GRAHAM Hydralazine HCl 100 mg 10/20/18 22:00 10/21/18 08:02 Apresoline PO 100 mg TID GRAHAM Administration Ampicillin Sodium/Sulbactam 100 mls @ 200 mls/hr 10/21/18 00:00 10/21/18 08: 37 Sodium 3 gm/ Sodium Chloride IVPB 200 mls/hr Q8HR GRAHAM Administration Sodium Chloride 1,000 mls @ 20 mls/hr 10/20/18 11:45 10/21/18 11:13 Saline 0.9% IV Not Given .Q24H [facility] Insulin Aspart 25 unit 10/21/18 07:30 10/21/18 13:25 Novolog Mix 70-30 Vial SQ 15 unit AC-TID [facility] Administration Isosorbide Mononitrate 60 mg 10/21/18 09:00 10/21/18 08:02 Imdur PO 60 mg DAILY [facility] Administration Naloxone HCl 0.2 mg 10/20/18 11:34 Narcan IV Q2M PRN Opioid Reversal Nitroglycerin 0.4 mg 10/20/18 17:37 Nitrostat SUBLINGUAL Q5M PRN Chest Pain Prazosin HCl 1 mg 10/20/18 21:00 10/21/18 08:03 Minipress PO 1 mg Q12H [facility] Administration Sodium Bicarbonate 650 mg 10/20/18 17:45 10/21/18 08:03 Sodium Bicarbonate Tab PO 650 mg TID G[facility] Administration Trimethoprim/Sulfamethoxazole 1 each 10/20/18 21:00 10/21/18 08:03 Bactrim Ds PO 1 each Q12HR GRAHAM Administration Intake and Output 10/20/18 10/21/18 10/21/18 22:59 06:59 14:59 Intake Total 100 0 Balance 100 0 Intake: Oral 100 0 Other: Voiding Method Toilet # Voids 1 1 Weight 104 kg 104 kg Patient Weight 10/22/18 06:59 Weight 104 kg 10/20/18 10:00 10/20/18 10:00
[2018-10-21 17:13] LABS: Glucose,Whole Blood 168 mg/dL (75-99)
[2018-10-21 21:12] LABS: Glucose,Whole Blood 187 mg/dL (75-99)
--- NOTE | 2018-10-21 22:57 | PN ---
PROGRESS NOTE DATE OF SERVICE: 10/21/2018 PRESENTING COMPLAINT: Left foot abscess, osteomyelitis. INTERVAL HISTORY: This patient with multiple medical problems presented with poorly healing and wound dehiscence of the left foot, due for amputation. Pain is controlled because of neuropathy. is present. Early this morning spoke to Dr. Franco about the case. Did explain to him that the patient has a cardiac condition, but is not amenable for any further intervention. Also spoke to Dr. Ez Clarke who is going to see the patient. Did update him on the patient. REVIEW OF SYSTEMS: Done for constitutional, cardiovascular, GI, pulmonary; relevant findings as above. CURRENT MEDICATIONS: Reviewed that include IV Unasyn. PHYSICAL EXAMINATION: VITAL SIGNS: Temperature 96.8, pulse 79, respiratory rate 18, blood pressure 163/93, pulse ox 97% on room air. GENERAL APPEARANCE: Sitting up, comfortable. EYES: Pupils equal. Conjunctivae normal. NECK JVD not raised. Mass not palpable. RESPIRATORY: Effort normal. LUNGS: Decreased breath sounds. CARDIOVASCULAR: 1st and 2nd sounds normal. No edema. ABDOMEN: Soft, nontender. Liver and spleen not palpable. PSYCHIATRY: Alert and oriented times three. Mood and affect normal. EXTREMITIES: Left foot wound is present. INVESTIGATIONS: Accu-Cheks are noted. ASSESSMENT: 1. Left foot wound with osteomyelitis in a patient with diabetic neuropathy, worsening, having failed outpatient treatment pending amputation. 2. Diabetes mellitus type 2, chronically on insulin causing peripheral neuropathy and diabetic retinopathy. 3. Essential hypertension. 4. Hyperlipidemia. 5. Chronic kidney stage 3 from diabetic nephropathy and hypertensive nephrosclerosis. 6. Chronic congestive heart failure from diastolic dysfunction from underlying hypertensive heart disease, ejection fraction not known. 7. Peripheral artery disease, severe. 8. Coronary artery disease with the patient not a candidate for surgical intervention. 9. Recent eye injury, being followed by ophthalmology as an outpatient. PLAN: Continue current medication and treatment plan. Care was discussed with Dr. Franco from vascular, and Dr. Ez Clarke from Cardiology. Follow with [facility]. Follow with current medications. Dr. Cowart was also consulted. Awaiting his input. Otherwise, the patient is medically stable to proceed for surgery tomorrow with no contraindications. He and his do understand there is high risk given his overall condition with surgery. MMODL / IJN: [id number] /
[2018-10-21] MEDS: ATORVASTATIN 40 MG TAB PO SCH (23:30)
[2018-10-21] MEDS: ENOXAPARIN 40 MG/0.4 ML SYRINGE SQ SCH (23:32)
--- NOTE | 2018-10-22 00:04 | P.CONS ---
History of Present Illness - Reason for Consult Consult date: 10/21/18 - Chief Complaint worsening infection left foot - History of Present Illness 73-year-old male well-known to the infectious disease service for his ongoing significant infections to the lower extremity. He has had Esteban grade 3 diabetic lower extremity ulcers to bilateral lower extremity. He's had multiple toe amputations. The left foot recently has had significant worsening and now he's feeling ill there is increasing sepsis and nonhealing ulcerations of the left foot. With this he is now agreeing to amputation that has been offered in the past, which hopefully will allow him to proceed in a healthier overall status. He feels poorly. He's had a fever at home. Minimal chills no rigors. The wound is draining it is not painful because of the severe peripheral neuropathy. He has had maximal vascular procedures done to the lower extremities. He also has underlying coronary artery disease and was evaluated by cardiology. Review of Systems Patient relates that he feels poorly, poor energy level poor appetite HEENT:Denies headache or acute visual change. Denies sinus or mouth discomforts. Denies neck stiffness or pain. Denies significant oral cavity pain. Denies difficulty on swallowing. Lungs: Denies significant shortness of breath, cough, sputum production, or hemoptysis. Cardiovascular: Denies significant shortness of breath, chest pain, chest wall pain, orthopnea, dyspnea on exertion, syncope Gastrointestinal:Denies nausea, vomiting, diarrhea, constipation, hematemesis, melena, hematochezia. No no significant change of bowel habit noticed. Musculoskeletal: denies significant myalgias or arthralgias. No new joint swelling. Denies new back pain. Skin: Worsening ulceration left foot Neuro: Denies headache or visual change. Denies any new onset weakness or difficulty with ambulation. No seizures significant neuropathy from his diabetes Psychiatric: Chronic anxiety and depression Endocrine: Chronic fatigue and difficulties of blood sugar control weight is stable Past Medical History Past Medical History: Heart Failure, Diabetes Mellitus, Deep Vein Thrombosis ( DVT), Hyperlipidemia, Hypertension, Syncope Additional Past Medical History / Comment(s): pt wants flu vaccine while here. other hx:per pt's "xray noted lung nodules". 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 There are no pets in the home. He does have home care set up. No service. Patient has lived in [facility]. 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 Patient is moved to this area to be close to his children. Patient stopped smoking several years ago. No significant history of alcohol or recreational drug use. No international travel. No animal exposures. Smoking Status: Never smoker - Past Family History Father Family Medical History: Deep Vein Thrombosis (DVT) Additional Family Medical History / Comment(s): had valve sx- a week later from complications Mother Family Medical History: Congestive Heart Failure (CHF) Additional Family Medical History / Comment(s): phlebitis Medications and Allergies Home Medications and Allergies Comment(s): Current Medications Atorvastatin Calcium (Lipitor) 40 mg PO HS [facility] Last Admin: 10/21/18 23:30 Dose: 40 mg Calcitriol (Rocaltrol) 0.5 mcg PO MOFR [facility] Last Admin: 10/20/18 18:15 Dose: 0.5 mcg Carvedilol (Coreg) 25 mg PO BID-W/MEALS [facility] Last Admin: 10/21/18 16:12 Dose: 25 mg Clonidine (Catapres) 0.2 mg PO TID [facility] Last Admin: 10/21/18 23:31 Dose: 0.2 mg Enoxaparin Sodium (Lovenox) 40 mg SQ DAILY@2100 [facility] Last Admin: 10/21/18 23:32 Dose: Not Given Hydralazine HCl (Apresoline) 100 mg PO TID [facility] Last Admin: 10/21/18 23:29 Dose: 100 mg Ampicillin Sodium/Sulbactam (Sodium 3 gm/ Sodium Chloride) 100 mls @ 200 mls/ hr IVPB Q8HR [facility] Last Admin: 10/21/18 23:50 Dose: 200 mls/hr Sodium Chloride (Saline 0.9%) 1,000 mls @ 20 mls/hr IV .Q24H [facility] Last Admin: 10/21/18 11:13 Dose: Not Given Insulin Aspart (Novolog Mix 70-30 Vial) 25 unit SQ AC-TID [facility] Last Admin: 10/21/18 18:06 Dose: 15 unit Isosorbide Mononitrate (Imdur) 60 mg PO DAILY [facility] Last Admin: 10/21/18 08:02 Dose: 60 mg Naloxone HCl (Narcan) 0.2 mg IV Q2M PRN PRN Reason: Opioid Reversal Nitroglycerin (Nitrostat) 0.4 mg SUBLINGUAL Q5M PRN PRN Reason: Chest Pain Prazosin HCl (Minipress) 1 mg PO Q12H [facility] Last Admin: 10/21/18 23:30 Dose: 1 mg Sodium Bicarbonate (Sodium Bicarbonate Tab) 650 mg PO TID [facility] Last Admin: 10/21/18 23:30 Dose: 650 mg Trimethoprim/Sulfamethoxazole (Bactrim Ds) 1 each PO Q12HR [facility] Last Admin: 10/21/18 23:30 Dose: 1 each Home Medications Medication Instructions Recorded Confirmed Type Nitroglycerin Sl Tabs [Nitrostat] 0.4 mg SUBLINGUAL Q5M PRN #100 tab 02/23/17 Rx Calcitriol [Rocaltrol] 0.5 mcg PO MOFR 12/26/17 10/20/18 History Carvedilol [Coreg] 25 mg PO BID 04/03/18 10/20/18 History Insulin NPH/Reg Insulin 7030 25 unit SQ AC-TID 06/15/18 10/20/18 History [humuLIN 70 VIAL] Atorvastatin [Lipitor] 40 mg PO HS #30 tab 09/17/18 10/20/18 Rx Isosorbide Mononitrate ER [Imdur] 60 mg PO DAILY #30 tab.er.24h 09/17/18 Rx Sodium Bicarbonate Tab 650 mg PO TID #60 tab 09/17/18 10/20/18 Rx cloNIDine HCL [Catapres] 0.2 mg PO TID #90 tab 09/17/18 10/20/18 Rx hydrALAZINE HCL [Apresoline] 100 mg PO TID #90 tab 09/17/18 10/20/18 Rx Prazosin [Minipress] 1 mg PO Q12H 10/20/18 10/20/18 History Sulfamethox-Tmp 800-160Mg [Bactrim 1 tab PO Q12HR 10/20/18 10/20/18 History DS 800-160 mg] Allergies Allergy/AdvReac Type Severity Reaction Status Date / Time amlodipine Allergy Anaphylaxis Verified 10/20/18 10:05 lisinopril Allergy tongue Verified 10/20/18 10:05 swelling vancomycin Allergy Unknown Verified 10/20/18 10:05 Physical Exam Vitals: Vital Signs Temp Pulse Resp BP Pulse Ox 10/21/18 14:50 97.6 F 73 14 159/76 96 10/21/18 05:41 96.8 F L 79 18 163/93 97 Intake and Output 10/21/18 10/21/18 10/22/18 14:59 22:59 06:59 Other: # Voids 2 0 # Bowel Movements 0 Weight 104 kg Pleasant 73-year-old male chronically ill HE ENT: Anicteric conjunctiva are pink and moist nasal mucosa grossly intact without significant lesions, there is no thrush. Neck: The neck is supple without significant lymphadenopathy or thyromegaly. Lungs: Good bilateral air entry without significant crackles or wheezing. There is no significant bronchial sounds. There is no egophony or dullness. Heart: Irregular audible S1 and S2 soft S4 no murmur click or rub Abdomen: Positive bowel sounds soft and nontender without palpable masses or organomegaly. There was no guarding or rebound. Extremities: Upper extremities without acute abnormality the lower extremities show evidence of the prior amputation to toes on the bilateral feet significant open ulcerations to the left foot at the great toe and medial noted with some purulent drainage not painful due to his neuropathy Neuro: Awake alert oriented to person place and time. Profound neuropathy bilateral lower extremities no sensation from mid tibia distally Results CBC & Chem 7: 10/20/18 10:00 10/20/18 10:00 Labs: Abnormal Lab Results - Last 24 Hours (Table) 10/21/18 10/21/18 10/21/18 Range/Units 07:36 11:51 17:10 POC Glucose (mg/dL) 177 H 139 H 168 H (75-99) mg/dL 10/21/18 Range/Units 21:07 POC Glucose (mg/dL) 187 H (75-99) mg/dL Microbiology - Last 24 Hours (Table) 10/20/18 10:00 Blood Culture Gram Stain - Preliminary Blood Blood Culture - Preliminary Coagulase Negative Staph 10/20/18 10:00 Blood Culture - Final Blood Laboratory Results WBC 5.4 k/uL (3.8-10.6) 10/20/18 10:00 RBC 3.90 m/uL (4.30-5.90) L 10/20/18 10:00 Hgb 11.2 gm/dL (13.0-17.5) L 10/20/18 10:00 Hct 33.7 % (39.0-53.0) L 10/20/18 10:00 MCV 86.3 fL (80.0-100.0) 10/20/18 10:00 MCH 28.8 pg (25.0-35.0) 10/20/18 10:00 MCHC 33.3 g/dL (31.0-37.0) 10/20/18 10:00 RDW 15.1 % (11.5-15.5) 10/20/18 10:00 Plt Count 212 k/uL (150-450) 10/20/18 10:00 Neutrophils % 80 % 10/20/18 10:00 Lymphocytes % 8 % 10/20/18 10:00 Monocytes % 5 % 10/20/18 10:00 Eosinophils % 5 % 10/20/18 10:00 Basophils % 0 % 10/20/18 10:00 Neutrophils # 4.3 k/uL (1.3-7.7) 10/20/18 10:00 Lymphocytes # 0.4 k/uL (1.0-4.8) L 10/20/18 10:00 Monocytes # 0.3 k/uL (0-1.0) 10/20/18 10:00 Eosinophils # 0.3 k/uL (0-0.7) 10/20/18 10:00 Basophils # 0.0 k/uL (0-0.2) 10/20/18 10:00 PT 10.2 sec (9.0-12.0) 10/20/18 10:00 INR 1.0 (<1.2) 10/20/18 10:00 APTT 25.9 sec (22.0-30.0) 10/20/18 10:00 Sodium 139 mmol/L (137-145) 10/20/18 10:00 Potassium 4.9 mmol/L (3.5-5.1) 10/20/18 10:00 Chloride 111 mmol/L (98-107) H 10/20/18 10:00 Carbon Dioxide 18 mmol/L (22-30) L 10/20/18 10:00 Anion Gap 10 mmol/L 10/20/18 10:00 BUN 43 mg/dL (9-20) H 10/20/18 10:00 Creatinine 2.40 mg/dL (0.66-1.25) H 10/20/18 10:00 Est GFR (CKD-EPI)AfAm 30 (>60 ml/min/1.73 sqM) 10/20/18 10:00 Est GFR (CKD-EPI)NonAf 26 (>60 ml/min/1.73 sqM) 10/20/18 10:00 Glucose 124 mg/dL (74-99) H 10/20/18 10:00 POC Glucose (mg/dL) 187 mg/dL (75-99) H 10/21/18 21:07 POC Glu Computer Education Teacher Arely Villalobos 10/21/18 21:07 Plasma Lactic Acid [place] 1.1 mmol/L (0.7-2.0) 10/20/18 10:00 Calcium 9.1 mg/dL (8.4-10.2) 10/20/18 10:00 Total Bilirubin 0.4 mg/dL (0.2-1.3) 10/20/18 10:00 AST 20 U/L (17-59) 10/20/18 10:00 ALT 26 U/L (21-72) 10/20/18 10:00 Alkaline Phosphatase 93 U/L (38-126) 10/20/18 10:00 Total Protein 6.6 g/dL (6.3-8.2) 10/20/18 10:00 Albumin 3.8 g/dL (3.5-5.0) 10/20/18 10:00 Microbiology 10/20/18 10:00 Blood Blood Culture Gram Stain - Preliminary 10/20/18 10:00 Blood Blood Culture - Preliminary Coagulase Negative Staph 10/20/18 10:00 Blood Blood Culture - Final Assessment and Plan (1) 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 The patient has been evaluated by his vascular surgeon there is no plans for the below knee amputation to resolve the chronic nonhealing infectious process. The goal is to remove the chronic infected area and hopefully have him fitted for a prosthesis soon so that he is able to get up and become active again. He has been bedbound, in the correction and really nonfunctional for more than a year and hopefully with resolution of the infectious process he can regain some quality of life. He and his own property that he isn't longer able to take care of it appears they are in the midst of trying to change residence this is much more amenable to his current situation. Somewhat recent cultures have showed a plethora of organisms including anaerobic pathogens as well as staph aureus and Staphylococcus auricularis. Unasyn has been started, daptomycin will be added in the direct perioperative timeframe. Local wound care has been initiated by the surgeon and residual limb care will be directed after surgery. Elevation of the limb is helpful. Ensure that he has adequate protein intake. Glucose control is helpful and we shall monitor. 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
[2018-10-22 07:32] LABS: Glucose,Whole Blood 134 mg/dL (75-99)
[2018-10-22] MEDS: CARVEDILOL 12.5 MG TAB PO SCH ×2 (07:37→16:32)
[2018-10-22] MEDS: INSULN ASP PRT/INSULIN ASPART 100 UNIT/ML 10 ML VIAL SQ SCH ×3 (07:39→17:46)
[2018-10-22] MEDS ORDERED: KETAMINE 10 MG/ML 20 ML VIAL ONE (08:06)
[2018-10-22] MEDS ORDERED: ONDANSETRON 4 MG/2 ML VIAL ONE (08:06)
[2018-10-22] MEDS ORDERED: ePHEDrine SULFATE/0.9% NACL/PF 50 MG/5 ML SYRINGE IV ONE (08:06)
[2018-10-22] MEDS ORDERED: DEXAMETHASONE SOD PHOS (MDV) 100 MG/10 ML VIAL ONE (08:06)
[2018-10-22] MEDS ORDERED: MIDAZOLAM 2 MG/2 ML VIAL ONE (08:06)
[2018-10-22] MEDS ORDERED: GLYCOPYRROLATE 0.2 MG/ML 2 ML VIAL ONE (08:06)
[2018-10-22] MEDS ORDERED: ROCURONIUM BROMIDE 10 MG/ML 10 ML VIAL IV ONE (08:06)
[2018-10-22] MEDS: AMPICILLIN-SULBACTAM 3 GM in SODIUM CHLORIDE 0.9% 100 ML IVPB SCH ×2 (08:06→16:31)
[2018-10-22] MEDS ORDERED: SUCCINYLCHOLINE CHLORIDE 100 MG/5 ML SYR IV ONE (08:06)
[2018-10-22] MEDS ORDERED: fentaNYL (PF) 50 MCG/ML 2 ML AMP ONE (08:06)
[2018-10-22] MEDS ORDERED: NEOSTIGMINE 1 MG/ML 10 ML VIAL ONE (08:06)
[2018-10-22] MEDS ORDERED: SODIUM CHLORIDE 0.9% 1,000 ML IV ONE ×3 (08:06→10:59)
[2018-10-22] MEDS ORDERED: PROPOFOL 10 MG/ML 20 ML VIAL IV ONE (08:06)
[2018-10-22] MEDS: HYDROmorphone 1 MG/ML 1 ML SYRINGE IVP ONE ×4 (10:40→11:11)
[2018-10-22 11:29] LABS: Glucose,Whole Blood 203 mg/dL (75-99)
[2018-10-22] MEDS: hydrALAZINE HCL 50 MG TAB PO SCH ×3 (11:47→21:47)
[2018-10-22] MEDS: ISOSORBIDE MONONITRATE ER 60 MG TAB.ER.24H PO SCH (11:47)
[2018-10-22] MEDS: PRAZOSIN 1 MG CAP PO SCH ×2 (11:47→21:47)
[2018-10-22] MEDS: cloNIDine HCL 0.2 MG TAB PO SCH ×3 (11:47→21:47)
[2018-10-22] MEDS: SULFAMETHOX-TMP 800-160MG 1 EACH TAB PO SCH ×2 (11:48→23:53)
[2018-10-22] MEDS: SODIUM BICARBONATE TAB 650 MG TAB PO SCH ×3 (11:48→21:47)
[2018-10-22] MEDS: SODIUM CHLORIDE 0.9% 1,000 ML IV SCH (11:49)
[2018-10-22 11:55] LABS: Glucose,Whole Blood 232 mg/dL (75-99)
[2018-10-22] MEDS: HYDROcodone/APAP 7.5-325MG 1 EACH TAB PO PRN ×2 (12:14→19:13)
[2018-10-22] MEDS: HYDROmorphone 1 MG/ML 1 ML SYRINGE IVP PRN ×2 (14:32→19:14)
[2018-10-22] MEDS: MORPHINE SULFATE 2 MG/ML SYRINGE IVP PRN (16:33)
[2018-10-22 17:06] LABS: Glucose,Whole Blood 182 mg/dL (75-99)
[2018-10-22 21:31] LABS: Glucose,Whole Blood 139 mg/dL (75-99)
[2018-10-22] MEDS: ENOXAPARIN 40 MG/0.4 ML SYRINGE SQ SCH (21:47)
[2018-10-22] MEDS: ATORVASTATIN 40 MG TAB PO SCH (21:47)
--- NOTE | 2018-10-22 22:04 | PN ---
PROGRESS NOTE DATE OF SERVICE: 10/22/2018. PRESENTING COMPLAINT: Left foot abscess. INTERVAL HISTORY: This is a patient with multiple medical problems, presented with poor healing and wound dehiscence of the left foot. Underwent amputation today. Pain is controlled. Primarily due to neuropathy. Lying in bed. is present. No new issues. REVIEW OF SYSTEMS: Done for constitutional, cardiovascular, GI, pulmonary; relevant findings as above. CURRENT MEDICATIONS: Reviewed, that include IV Unasyn. PHYSICAL EXAMINATION: Temperature 98.4, pulse 80, respirations 16, blood pressure 165/84, pulse ox 95% on room air. GENERAL APPEARANCE: Lying in bed, awake. EYES: Pupils are equal. Conjunctivae normal. NECK: JVD not raised. Mass not palpable. Respiratory effort normal. LUNGS: Decreased breath sounds. CARDIOVASCULAR: 1st and 2nd sounds normal. No edema. ABDOMEN: Soft, nontender. Liver and spleen not palpable. PSYCHIATRY: Alert and oriented x3. Mood and affect normal. EXTREMITIES: Left leg stump. INVESTIGATIONS: Accu-Cheks are noted. ASSESSMENT: 1. Left foot wound with osteomyelitis in a patient with diabetic neuropathy, worsening, having failed outpatient treatment status post left foot amputation. 2. Diabetes mellitus type 2, chronically on insulin causing peripheral neuropathy and diabetic retinopathy. 3. Essential hypertension. 4. Hyperlipidemia. 5. Chronic kidney stage 3 from diabetic nephropathy and hypertensive nephrosclerosis. 6. Chronic congestive heart failure from diastolic dysfunction from underlying hypertensive heart disease, ejection fraction not known. 7. Peripheral artery disease, severe. 8. Coronary artery disease. The patient is not a candidate for surgical intervention. 9. Recent left eye injury, being followed by patrol deputy sheriff as an outpatient. PLAN: Care was discussed with the patient and . Antibiotics per Dr. Cowart. Will DC the Bactrim at this point. Pain controlled. MMODL / IJN: [id number] /
--- NOTE | 2018-10-22 23:25 | OP ---
OPERATIVE REPORT PREOP DIAGNOSIS: Chronic wound, left foot and exposed metatarsal bone with occlusion of the infrapopliteal vessels, anterior tibial, posterior tibial occluded. The patient had a bypass graft in the past, which has been occluded. OPERATION PERFORMED: Left above-knee amputation. ANESTHESIA: General anesthesia. DESCRIPTION OF PROCEDURE: Patient was brought to the operating room. Left leg was prepped and drapes applied in the usual sterile manner. A circular incision was made above the patella deepened through the skin fat and fascia on the medial compartment of the thigh. The medial compartment muscles were divided. The bleeding points were suture ligated. After the dissection was carried out to identify the femoral artery and the femoral vein, proximal distal control was obtained and clamped and divided and was closed with 2-0 Prolene and then the anterior compartment muscles were divided down to the femur. Bleeding points were suture ligated until we reached the femur. Then the lateral compartment incision was made, deep into skin fat and fascia and then later compartment muscles were divided. After that, we went circumferentially around the femur and using periosteal elevator, the periosteum was elevated and using hand electric saw and the femur was divided. Then the posterior compartment muscles were divided. The short external was identified, divided, tied with traction and closed with 3-0 Prolene. Posterior compartment muscles were divided and the specimen was removed. After that, we irrigated the wound copiously with hydrogen peroxide and saline. Hemostasis was well controlled and after that, the anterior and posterior compartment muscles were approximated around the femur. This patient has a chronic external rotation of the hip joint and after that muscles were suture ligated. Anterior and posterior compartment muscles. Then fascia was approximated with 0 Vicryl with interrupted sutures and the skin was closed with 3-0 nylon with mattress interrupted suture. Dressing applied. Patient tolerated the procedure well. Dressing applied. Blood loss is 400 mL. The patient was transferred to recovery in satisfactory condition. MMODL / IJN: [id number] /
[2018-10-23] MEDS: AMPICILLIN-SULBACTAM 3 GM in SODIUM CHLORIDE 0.9% 100 ML IVPB SCH ×4 (00:02→23:55)
[2018-10-23] MEDS: HYDROmorphone 1 MG/ML 1 ML SYRINGE IVP PRN ×5 (01:27→20:23)
[2018-10-23] MEDS: HYDROcodone/APAP 7.5-325MG 1 EACH TAB PO PRN ×4 (01:27→22:03)
[2018-10-23 06:49] LABS: Glucose,Whole Blood 206 mg/dL (75-99)
[2018-10-23] MEDS: PRAZOSIN 1 MG CAP PO SCH ×3 (08:24→23:55)
[2018-10-23] MEDS: CARVEDILOL 12.5 MG TAB PO SCH ×2 (08:24→17:11)
[2018-10-23] MEDS: SODIUM BICARBONATE TAB 650 MG TAB PO SCH ×3 (08:24→20:22)
[2018-10-23] MEDS: cloNIDine HCL 0.2 MG TAB PO SCH ×3 (08:25→20:22)
[2018-10-23] MEDS: INSULN ASP PRT/INSULIN ASPART 100 UNIT/ML 10 ML VIAL SQ SCH ×3 (08:25→17:20)
[2018-10-23] MEDS: hydrALAZINE HCL 50 MG TAB PO SCH ×3 (08:25→20:22)
[2018-10-23] MEDS: ISOSORBIDE MONONITRATE ER 60 MG TAB.ER.24H PO SCH (08:25)
[2018-10-23 11:19] LABS: Basophils % (A) 0 %; Eosinophils # (A) 0.2 k/uL (0-0.7); Eosinophils % (A) 2 %; HCT 30.9 % (39.0-53.0); HGB 9.9 gm/dL (13.0-17.5); Lymphocytes # (A) 0.5 k/uL (1.0-4.8); Lymphocytes % (A) 6 %; MCH 27.8 pg (25.0-35.0); MCV 86.7 fL (80.0-100.0); Mean Platelet Volume 8.1; Monocytes # (A) 0.6 k/uL (0-1.0); Monocytes % (A) 8 %; Neutrophils # (A) 6.9 k/uL (1.3-7.7); Neutrophils % (A) 83 %; Platelet Count 219 k/uL (150-450); RBC 3.56 m/uL (4.30-5.90); RDW 15.3 % (11.5-15.5); WBC 8.3 k/uL (3.8-10.6)
--- NOTE | 2018-10-23 11:19 | P.PN ---
Subjective This is a pleasant 73-year-old male past medical history significant for significant multivessel coronary artery disease, hypertension, chronic kidney disease, dyslipidemia, diabetes mellitus, chronic lower extremity wound on the left foot and peripheral vascular disease. He follows with Dr. Murillo in the office. He underwent left above the knee amputation per Dr. Franco yesterday. He is seen and examined sitting up on the edge of the bed with physical therapy in the room. He complains of significant pain the left leg since undergoing surgery. He denies chest pain, shortness of breath, dizziness or palpitations. Blood pressure 168/91 heart rate 101 afebrile and maintaining oxygen saturation on room air. Currently maintained on atorvastatin 40 mg daily , carvedilol 25 mg twice a day, clonidine 0.2 mg 3 times a day, hydralazine 100 mg 3 times a day, Imdur 60 mg daily and prazosin 1 mg twice a day. GENERAL: This is a 73-year-old male in no apparent distress at the time of my examination. HEENT: Head is atraumatic, normocephalic. Pupils are equal, round. Sclerae anicteric. Conjunctivae are clear. Mucous membranes of the mouth are moist. Neck is supple. There is no jugular venous distention. No carotid bruit is heard. LUNGS: Clear to auscultation no wheezes, rales or rhonchi. No chest wall tenderness is noted on palpation or with deep breathing. HEART: Regular rate and rhythm without murmurs, rubs or gallops. S1 and S2 heard. EXTREMITIES: No evidence of peripheral edema and no calf tenderness noted. Left AKA with dressing and drain in place. ASSESSMENT Chronic wound to left lower extremity requiring amputation Osteomyelitis POD# 1 left above the knee amputation History of multivessel coronary artery disease on maximum medical therapy Hypertension Dyslipidemia Diabetes mellitus Chronic kidney disease Positive blood cultures PLAN Stable from a cardiac perspective. Blood pressure mildly elevated, most likely due to pain. Continue current medical regimen. We will continue to see as needed, please feel free to call with further questions or concerns. Follow up with Dr. Murillo upon discharge. Nurse Practitioner note has been reviewed, I agree with a documented findings and plan of care. Patient was seen and examined. Objective - Vital Signs Vital signs: Vital Signs Temp 98.2 F 10/23/18 06:13 Pulse 101 H 10/23/18 06:13 Resp 17 12/03/18 08:00 BP 168/91 10/23/18 06:13 Pulse Ox 94 L 10/23/18 06:13 Intake & Output 10/22/18 10/23/18 10/23/18 18:59 06:59 18:59 Intake Total 1000 Output Total 2000 400 Balance -1000 -400 Weight 99.5 kg Intake: IV 1000 Output: Urine 1600 400 Estimated Blood Loss 400 Other: Voiding Method Indwelling Catheter Indwelling Catheter # Voids 0 - Labs CBC & Chem 7: 10/20/18 10:00 10/20/18 10:00 Labs: Abnormal Lab Results - Last 24 Hours (Table) 10/22/18 10/22/18 10/22/18 Range/Units 11:07 11:53 17:02 POC Glucose (mg/dL) 203 H 232 H 182 H (75-99) mg/dL 10/22/18 10/23/18 Range/Units 21:08 06:46 POC Glucose (mg/dL) 139 H 206 H (75-99) mg/dL Microbiology - Last 24 Hours (Table) 10/20/18 10:00 Blood Culture Gram Stain - Final Blood Blood Culture - Final Staphylococcus epidermidis
[2018-10-23 11:40] LABS: Calcium 9.1 mg/dL (8.4-10.2); Potassium 4.7 mmol/L (3.5-5.1)
[2018-10-23 12:33] LABS: Glucose,Whole Blood 173 mg/dL (75-99)
[2018-10-23] MEDS: SODIUM CHLORIDE 0.9% 1,000 ML IV SCH (12:52)
--- NOTE | 2018-10-23 15:00 | P.CONS ---
History of Present Illness - Chief Complaint Walking difficulty, left AKA - History of Present Illness I had the opportunity to see patient for inpatient rehab consultation with regard to walking difficulty. He was admitted to [facility] October 20 left leg and foot cellulitis. Seen by cardiology. On underwent left AKA. PT reports moderate assistance for functional body and standing. OT reports supervision for upper dressing and maximal assistance for lower dressing. Moderate assistance for bathing toileting and minimal assistance for functional mobility. Previous functional history as elicited from patient: 73-year-old right-handed white male who is lives in one floor home with . Retired. does cooking, laundry, driving. Patient independent with standing shower and gait without device. Dr. Story is regular doctor. Denies history of tobacco or alcohol. Family history of stroke in father. Review of Systems Review of systems: ENT: Denies sneezes or discharge. Eyes: Denies discharge or photophobia. Cardiac: Denies chest pain or palpitation. Pulmonary: Denies cough or shortness of breath. Gastrointestinal: Denies nausea, emesis, constipation, diarrhea. Genitourinary: Denies discharge or frequency. Musculoskeletal: Left stump discomfort, especially with movement. Neurologic: Denies motor or sensory change. Endocrine: Denies shakes or sweats. Oncology: Denies cancers. Dermatologic: Denies rash, itching, pruritus. ALLERGY/immunology: Denies sneezes, rashes. Past Medical History Past Medical History: Heart Failure, Diabetes Mellitus, Deep Vein Thrombosis ( DVT), Hyperlipidemia, Hypertension, Syncope Additional Past Medical History / Comment(s): pt wants flu vaccine while here. other hx:per pt's "xray noted lung nodules". 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 There are no pets in the home. He does have home care set up. No service. Patient has lived in [facility]. He spent 25 years in 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 Patient is moved to this area to be close to his children. Patient stopped smoking several years ago. No significant history of alcohol or recreational drug use. No international travel. No animal exposures. Smoking Status: Never smoker - Past Family History Father Family Medical History: Deep Vein Thrombosis (DVT) Additional Family Medical History / Comment(s): had valve sx- a week later from complications Mother Family Medical History: Congestive Heart Failure (CHF) Additional Family Medical History / Comment(s): phlebitis Medications and Allergies Home Medications Medication Instructions Recorded Confirmed Type Nitroglycerin Sl Tabs [Nitrostat] 0.4 mg SUBLINGUAL Q5M PRN #100 tab 02/23/17 Rx Calcitriol [Rocaltrol] 0.5 mcg PO MOFR 12/26/17 10/20/18 History Carvedilol [Coreg] 25 mg PO BID 04/03/18 10/20/18 History Insulin NPH/Reg Insulin 70/30 25 unit SQ AC-TID 06/15/18 10/20/18 History [humuLIN 70/30 VIAL] Atorvastatin [Lipitor] 40 mg PO HS #30 tab 09/17/18 10/20/18 Rx Isosorbide Mononitrate ER [Imdur] 60 mg PO DAILY #30 tab.er.24h 09/17/18 Rx Sodium Bicarbonate Tab 650 mg PO TID #60 tab 09/17/18 10/20/18 Rx cloNIDine HCL [Catapres] 0.2 mg PO TID #90 tab 09/17/18 10/20/18 Rx hydrALAZINE HCL [Apresoline] 100 mg PO TID #90 tab 09/17/18 10/20/18 Rx Prazosin [Minipress] 1 mg PO Q12H 10/20/18 10/20/18 History Sulfamethox-Tmp 800-160Mg [Bactrim 1 tab PO Q12HR 10/20/18 10/20/18 History DS 800-160 mg] Allergies Allergy/AdvReac Type Severity Reaction Status Date / Time amlodipine Allergy Anaphylaxis Verified 10/20/18 10:05 lisinopril Allergy tongue Verified 10/20/18 10:05 swelling vancomycin Allergy Unknown Verified 10/20/18 10:05 Physical Exam Vitals: Vital Signs Temp Pulse Pulse Resp BP Pulse Ox 10/23/18 14:12 98.2 F 92 16 156/80 95 10/23/18 08:00 17 10/23/18 06:13 98.2 F 101 H 17 168/91 94 L 10/23/18 01:05 97.7 F 103 H 17 170/97 93 L 10/22/18 22:43 99.0 F 113 H 20 170/95 95 Intake and Output 10/22/18 10/23/18 10/23/18 22:59 06:59 14:59 Output Total 400 1800 Balance -400 -1800 Output: Urine 400 1800 Uretheral (Barrios) 900 Other: Voiding Method Indwelling Catheter Indwelling Catheter # Voids 0 Weight 99.5 kg Skin: Atrophic, intact. General: Medium build and comfortable appearance. Head: Normocephalic, atraumatic. Eyes: Symmetric. Pupils equal round. Ears: Symmetric. Hearing within normal limits. Mouth: Clear. Neck: Supple. Carotid without bruit. Cardiac: Regular rate and rhythm. Lungs: Clear anteriorly and posteriorly. Abdomen: Soft active nontender. Extremities: Normal tone. Left AKA stump clean and dressed with pressure dressing. Neurological: Mental status: Alert, cooperative, pleasant. Cranial nerves: Symmetric facial tone and trapezius. Motor: Normal strength and isolation all 4 limbs. Sensation: Intact throughout. DTRs: Symmetric and equal throughout. Mobility: Sits with moderate assistance. Results CBC & Chem 7: 10/23/18 10:36 10/23/18 10:36 Labs: Abnormal Lab Results - Last 24 Hours (Table) 10/22/18 10/22/18 10/23/18 Range/Units 17:02 21:08 06:46 RBC (4.30-5.90) m/uL Hgb (13.0-17.5) gm/dL Hct (39.0-53.0) % Lymphocytes # (1.0-4.8) k/uL BUN (9-20) mg/dL Creatinine (0.66-1.25) mg/dL Glucose (74-99) mg/dL POC Glucose (mg/dL) 182 H 139 H 206 H (75-99) mg/dL 10/23/18 10/23/18 10/23/18 Range/Units 10:36 10:36 12:31 RBC 3.56 L (4.30-5.90) m/uL Hgb 9.9 L (13.0-17.5) gm/dL Hct 30.9 L (39.0-53.0) % Lymphocytes # 0.5 L (1.0-4.8) k/uL BUN 36 H (9-20) mg/dL Creatinine 2.24 H (0.66-1.25) mg/dL Glucose 181 H (74-99) mg/dL POC Glucose (mg/dL) 173 H (75-99) mg/dL Microbiology - Last 24 Hours (Table) 10/20/18 10:00 Blood Culture Gram Stain - Final Blood Blood Culture - Final Staphylococcus epidermidis Assessment and Plan (1) 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 Walking difficulty. 2. Left leg cellulitis status post left AKA. 3. Acute kidney injury. 4. Hypertension. 5. Dyslipidemia. 6. CHF. 7. Diabetes. 8. History of DVT and syncope. Comments and plan: PT and OT are ongoing. Safety concerns noted. Discussed possible inpatient rehab with patient, and family. All seem agreeable if necessary.
[2018-10-23] MEDS: DAPTOmycin 500 MG in SODIUM CHLORIDE 0.9% 50 ML IVPB SCH (17:10)
[2018-10-23 17:20] LABS: Glucose,Whole Blood 205 mg/dL (75-99)
[2018-10-23] MEDS: MORPHINE SULFATE 2 MG/ML SYRINGE IVP PRN (17:20)
[2018-10-23] MEDS: CALCITRIOL 0.25 MCG CAP PO SCH (19:32)
[2018-10-23] MEDS: NORTRIPTYLINE 25 MG CAP PO SCH (20:22)
[2018-10-23] MEDS: ENOXAPARIN 40 MG/0.4 ML SYRINGE SQ SCH (20:22)
[2018-10-23] MEDS: ATORVASTATIN 40 MG TAB PO SCH (20:22)
[2018-10-23 20:36] LABS: Glucose,Whole Blood 128 mg/dL (75-99)
--- NOTE | 2018-10-23 20:39 | P.PN ---
Subjective Progress Note Date: 10/23/18 73-year-old male well-known to the infectious disease service for his ongoing significant infections to the lower extremity. He has had Esteban grade 3 diabetic lower extremity ulcers to bilateral lower extremity. He's had multiple toe amputations. The left foot recently has had significant worsening and now he's feeling ill there is increasing sepsis and nonhealing ulcerations of the left foot. With this he is now agreeing to amputation that has been offered in the past, which hopefully will allow him to proceed in a healthier overall status. He feels poorly. He's had a fever at home. Minimal chills no rigors. The wound is draining it is not painful because of the severe peripheral neuropathy. He has had maximal vascular procedures done to the lower extremities. He also has underlying coronary artery disease and was evaluated by cardiology. 10/23/2018 patient is status post the left bctxq-[id number]-vyat amputation and is complaining of some neuropathic type pains to the limb. He denying fevers or chills. Denies other new acute changes Objective - Vital Signs Vital signs: Vital Signs Temp 98.2 F 10/23/18 14:12 Pulse 92 10/23/18 14:12 Resp 16 10/23/18 16:00 BP 156/80 10/23/18 14:12 Pulse Ox 95 10/23/18 14:12 Intake & Output 10/23/18 10/23/18 10/24/18 06:59 18:59 06:59 Output Total 400 1802 Balance -400 -1802 Weight 99.5 kg Output: Drainage 2 Left Thigh 2 Urine 400 1800 Uretheral (Barrios) 900 Other: Voiding Method Indwelling Catheter Urinal # Voids 0 - Exam Pleasant 73-year-old male chronically ill HE ENT: Anicteric conjunctiva are pink and moist nasal mucosa grossly intact without significant lesions, there is no thrush. Neck: The neck is supple without significant lymphadenopathy or thyromegaly. Lungs: Good bilateral air entry without significant crackles or wheezing. There is no significant bronchial sounds. There is no egophony or dullness. Heart: Irregular audible S1 and S2 soft S4 no murmur click or rub Abdomen: Positive bowel sounds soft and nontender without palpable masses or organomegaly. There was no guarding or rebound. Extremities: Upper extremities without acute abnormality the lower extremities show evidence of the prior amputation to toes on the right foot. Residual limb site not undressed Neuro: Awake alert oriented to person place and time. Profound neuropathy - Labs CBC & Chem 7: 10/23/18 10:36 10/23/18 10:36 Labs: Abnormal Lab Results - Last 24 Hours (Table) 10/22/18 10/23/18 10/23/18 Range/Units 21:08 06:46 10:36 RBC 3.56 L (4.30-5.90) m/uL Hgb 9.9 L (13.0-17.5) gm/dL Hct 30.9 L (39.0-53.0) % Lymphocytes # 0.5 L (1.0-4.8) k/uL BUN (9-20) mg/dL Creatinine (0.66-1.25) mg/dL Glucose (74-99) mg/dL POC Glucose (mg/dL) 139 H 206 H (75-99) mg/dL 10/23/18 10/23/18 10/23/18 Range/Units 10:36 12:31 16:59 RBC (4.30-5.90) m/uL Hgb (13.0-17.5) gm/dL Hct (39.0-53.0) % Lymphocytes # (1.0-4.8) k/uL BUN 36 H (9-20) mg/dL Creatinine 2.24 H (0.66-1.25) mg/dL Glucose 181 H (74-99) mg/dL POC Glucose (mg/dL) 173 H 205 H (75-99) mg/dL Microbiology - Last 24 Hours (Table) 10/20/18 10:00 Blood Culture Gram Stain - Final Blood Blood Culture - Final Staphylococcus epidermidis Laboratory Results WBC 8.3 k/uL (3.8-10.6) 10/23/18 10:36 RBC 3.56 m/uL (4.30-5.90) L 10/23/18 10:36 Hgb 9.9 gm/dL (13.0-17.5) L 10/23/18 10:36 Hct 30.9 % (39.0-53.0) L 10/23/18 10:36 MCV 86.7 fL (80.0-100.0) 10/23/18 10:36 MCH 27.8 pg (25.0-35.0) 10/23/18 10:36 MCHC 32.0 g/dL (31.0-37.0) 10/23/18 10:36 RDW 15.3 % (11.5-15.5) 10/23/18 10:36 Plt Count 219 k/uL (150-450) 10/23/18 10:36 Neutrophils % 83 % 10/23/18 10:36 Lymphocytes % 6 % 10/23/18 10:36 Monocytes % 8 % 10/23/18 10:36 Eosinophils % 2 % 10/23/18 10:36 Basophils % 0 % 10/23/18 10:36 Neutrophils # 6.9 k/uL (1.3-7.7) 10/23/18 10:36 Lymphocytes # 0.5 k/uL (1.0-4.8) L 10/23/18 10:36 Monocytes # 0.6 k/uL (0-1.0) 10/23/18 10:36 Eosinophils # 0.2 k/uL (0-0.7) 10/23/18 10:36 Basophils # 0.0 k/uL (0-0.2) 10/23/18 10:36 PT 10.2 sec (9.0-12.0) 10/20/18 10:00 INR 1.0 (<1.2) 10/20/18 10:00 APTT 25.9 sec (22.0-30.0) 10/20/18 10:00 Sodium 137 mmol/L (137-145) 10/23/18 10:36 Potassium 4.7 mmol/L (3.5-5.1) 10/23/18 10:36 Chloride 105 mmol/L (98-107) 10/23/18 10:36 Carbon Dioxide 23 mmol/L (22-30) 10/23/18 10:36 Anion Gap 9 mmol/L 10/23/18 10:36 BUN 36 mg/dL (9-20) H 10/23/18 10:36 Creatinine 2.24 mg/dL (0.66-1.25) H 10/23/18 10:36 Est GFR (CKD-EPI)AfAm 33 (>60 ml/min/1.73 sqM) 10/23/18 10:36 Est GFR (CKD-EPI)NonAf 29 (>60 ml/min/1.73 sqM) 10/23/18 10:36 Glucose 181 mg/dL (74-99) H 10/23/18 10:36 POC Glucose (mg/dL) 128 mg/dL (75-99) H 10/23/18 20:34 POC Glu Contract Attorney Renee Yanez 10/23/18 20:34 Plasma Lactic Acid [place]ablito 1.1 mmol/L (0.7-2.0) 10/20/18 10:00 Calcium 9.1 mg/dL (8.4-10.2) 10/23/18 10:36 Total Bilirubin 0.4 mg/dL (0.2-1.3) 10/20/18 10:00 AST 20 U/L (17-59) 10/20/18 10:00 ALT 26 U/L (21-72) 10/20/18 10:00 Alkaline Phosphatase 93 U/L (38-126) 10/20/18 10:00 Total Protein 6.6 g/dL (6.3-8.2) 10/20/18 10:00 Albumin 3.8 g/dL (3.5-5.0) 10/20/18 10:00 Microbiology 10/20/18 10:00 Blood Blood Culture Gram Stain - Final 10/20/18 10:00 Blood Blood Culture - Final Staphylococcus epidermidis 10/20/18 10:00 Blood Blood Culture - Final Assessment and Plan (1) 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 The patient has been evaluated by his vascular surgeon there is no plans for the below knee amputation to resolve the chronic nonhealing infectious process. The goal is to remove the chronic infected area and hopefully have him fitted for a prosthesis soon so that he is able to get up and become active again. He has been bedbound, in the senior care and really nonfunctional for more than a year and hopefully with resolution of the infectious process he can regain some quality of life. He and his own property that he isn't longer able to take care of it appears they are in the midst of trying to change residence this is much more amenable to his current situation. Somewhat recent cultures have showed a plethora of organisms including anaerobic pathogens as well as staph aureus and Staphylococcus auricularis. Unasyn has been started, daptomycin will be added in the direct perioperative timeframe. Local wound care has been initiated by the surgeon and residual limb care will be directed after surgery. Elevation of the limb is helpful. Ensure that he has adequate protein intake. Glucose control is helpful and we shall monitor. 10/23/2018 patient is now doing considerably better status post the left above- the-knee amputation. Is complaining of some neuropathic pain. Nortriptyline will be added at at bedtime to see if this cannot help with his neuropathic pain and get him some rest. He is receiving pain medications to help with his acute surgical pain. Blood cultures contamination and needs no further treatment. We'll continue antibiotic therapy clinic short period of time to ensure clearance of any residual bacteria within the lymphatic channels of the leg. Patient as well as questions were answered. 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
[2018-10-24] MEDS: HYDROmorphone 1 MG/ML 1 ML SYRINGE IVP PRN ×4 (00:01→18:48)
--- NOTE | 2018-10-24 00:25 | PN ---
PROGRESS NOTE DATE OF SERVICE: 10/23/2018. PRESENTING COMPLAINT: Left below-knee amputation. INTERVAL HISTORY: The patient has left foot osteomyelitis, nonhealing, underwent left above knee amputation, having some pain. Did tolerate a diet. Family at the bedside. REVIEW OF SYSTEMS: Done for constitutional, cardiovascular, GI, pulmonary; relevant findings as above. CURRENT MEDICATIONS: Include IV Unasyn, daptomycin. PHYSICAL EXAMINATION: VITAL SIGNS: Temperature 98.2, pulse 92, respiration 16, blood pressure 156/80, pulse ox 95% on room air. GENERAL APPEARANCE: Lying in bed, awake. EYES: Pupils equal. Conjunctivae normal. NECK: JVD not raised. Mass not palpable. RESPIRATORY: Effort normal. LUNGS: Decreased breath sounds. CARDIOVASCULAR: 1st and 2nd sounds normal. No edema. ABDOMEN: Soft, nontender. Liver and spleen not palpable. PSYCHIATRY: Alert and oriented times three. Mood and affect normal. Left leg has got a stump. INVESTIGATIONS: White count 8.3, hemoglobin 9.9, potassium 4.7, BUN 36, creatinine 2.24. ASSESSMENT: 1. Left foot wound with nonhealing osteomyelitis with diabetic neuropathy, leading to left above-knee amputation. 2. Diabetes mellitus Type 2, chronically on insulin, causing peripheral neuropathy, diabetic retinopathy. 3. Essential hypertension. 4. Hyperlipidemia. 5. Chronic kidney disease from diabetic nephropathy and hypertensive nephrosclerosis. 6. Chronic congestive heart failure from diastolic dysfunction from underlying hypertensive heart disease, ejection fraction not known. 7. Peripheral artery disease, severe. 8. Coronary artery disease. Patient not a candidate for surgical intervention. 9. Recent left eye injury, being followed by ophthalmology as an outpatient. PLAN: We will increase the patient's Catapres to 0.33 times a day as blood pressure is running on the higher side. Actually we will increase patient's Prazosin. MMODL / IJN: [id number] /
[2018-10-24] MEDS ORDERED: cloNIDine HCL 0.1 MG TAB PO STA (02:21)
[2018-10-24] MEDS: MORPHINE SULFATE 2 MG/ML SYRINGE IVP PRN (02:32)
[2018-10-24] MEDS: CARVEDILOL 12.5 MG TAB PO SCH ×2 (06:47→17:01)
[2018-10-24] MEDS: hydrALAZINE HCL 50 MG TAB PO SCH ×3 (06:47→21:31)
[2018-10-24] MEDS: cloNIDine HCL 0.2 MG TAB PO SCH ×3 (06:47→21:31)
[2018-10-24 07:24] LABS: Glucose,Whole Blood 128 mg/dL (75-99)
[2018-10-24] MEDS: AMPICILLIN-SULBACTAM 3 GM in SODIUM CHLORIDE 0.9% 100 ML IVPB SCH ×2 (07:51→15:17)
[2018-10-24] MEDS: INSULN ASP PRT/INSULIN ASPART 100 UNIT/ML 10 ML VIAL SQ SCH ×3 (07:51→18:08)
[2018-10-24] MEDS: ISOSORBIDE MONONITRATE ER 60 MG TAB.ER.24H PO SCH (07:52)
[2018-10-24] MEDS: SODIUM BICARBONATE TAB 650 MG TAB PO SCH ×3 (07:53→21:31)
[2018-10-24] MEDS: HYDROcodone/APAP 7.5-325MG 1 EACH TAB PO PRN ×2 (07:53→15:17)
[2018-10-24] MEDS: PRAZOSIN 1 MG CAP PO SCH ×3 (07:53→21:31)
[2018-10-24 10:18] LABS: Calcium 9.1 mg/dL (8.4-10.2); Potassium 4.5 mmol/L (3.5-5.1)
[2018-10-24] MEDS: SODIUM CHLORIDE 0.9% 1,000 ML IV SCH (11:07)
--- NOTE | 2018-10-24 11:39 | PN ---
PROGRESS NOTE Patient had a left AK amputation, stump site looks good. Dressing changed. We continue with physical therapy. MMODL / IJN: [id number] /
[2018-10-24 11:52] LABS: Glucose,Whole Blood 131 mg/dL (75-99)
[2018-10-24] MEDS: DAPTOmycin 500 MG in SODIUM CHLORIDE 0.9% 50 ML IVPB SCH (16:08)
[2018-10-24] MEDS: TAMSULOSIN 0.4 MG CAP.ER.24H PO SCH (17:02)
[2018-10-24 17:05] LABS: Glucose,Whole Blood 99 mg/dL (75-99)
[2018-10-24 20:36] LABS: Glucose,Whole Blood 138 mg/dL (75-99)
[2018-10-24] MEDS: NORTRIPTYLINE 25 MG CAP PO SCH (21:31)
[2018-10-24] MEDS: SENNOSIDES-DOCUSATE SODIUM 1 EACH TAB PO SCH (21:31)
[2018-10-24] MEDS: ENOXAPARIN 40 MG/0.4 ML SYRINGE SQ SCH (21:31)
[2018-10-24] MEDS: ATORVASTATIN 40 MG TAB PO SCH (21:31)
[2018-10-25] MEDS: AMPICILLIN-SULBACTAM 3 GM in SODIUM CHLORIDE 0.9% 100 ML IVPB SCH ×3 (00:04→15:04)
--- NOTE | 2018-10-25 00:57 | PN ---
PROGRESS NOTE DATE OF SERVICE: 10/24/2018 PRESENTING COMPLAINT: Left below-knee amputation. INTERVAL HISTORY: Patient had left foot osteomyelitis, nonhealing, underwent left above-knee amputation. The pain is better controlled. Tolerating a diet. No new issues. Dressing was changed by Dr. Franco earlier today. Comfortable. REVIEW OF SYSTEMS: Done for constitutional, cardiovascular, GI, pulmonary, musculoskeletal and relevant findings as above. CURRENT MEDICATIONS: Reviewed that include IV Unasyn and daptomycin. PHYSICAL EXAMINATION: VITAL SIGNS: Temperature 97.1, pulse 82, respiratory 18, blood pressure 150/73, pulse ox 96% on room air. GENERAL APPEARANCE: Lying in bed, comfortable, awake. EYES: Pupils equal. Conjunctivae normal. NECK: JVD not raised. Mass not palpable. RESPIRATORY: Effort normal. LUNGS: Decreased breath sounds. CARDIOVASCULAR: 1st and 2nd sounds normal. No edema. ABDOMEN: Soft, nontender, liver and spleen not palpable. PSYCHIATRY: Alert and oriented x3. Mood and affect normal. EXTREMITIES: Left above- knee amputation with dressing. INVESTIGATIONS: BUN 31, creatinine 1.98. Accu-Cheks are noted. ASSESSMENT: 1. Left foot wound nonhealing osteomyelitis with diabetic neuropathy leading to left above-knee amputation. 2. Diabetes mellitus type 2, chronically on insulin causing peripheral neuropathy and diabetic retinopathy. 3. Essential hypertension. 4. Hyperlipidemia. 5. Chronic kidney disease from diabetic nephropathy and hypertensive nephrosclerosis. 6. Chronic congestive heart failure from diastolic dysfunction. Ejection fraction not known. 7. Peripheral artery disease, severe. 8. Coronary artery disease. Patient not a candidate for surgical intervention. 9. Recent left eye injury, being followed as an outpatient. PLAN: Patient's blood pressure now better controlled with a change of medications to Prazosin. Antibiotics per Dr. Cowart. Care was discussed with the patient at the bedside. Repeat labs in the morning. MMODL / IJN: [id number] /
[2018-10-25] MEDS: HYDROcodone/APAP 7.5-325MG 1 EACH TAB PO PRN ×3 (05:55→17:45)
[2018-10-25 07:48] LABS: Glucose,Whole Blood 181 mg/dL (75-99)
[2018-10-25] MEDS: hydrALAZINE HCL 50 MG TAB PO SCH ×3 (07:59→21:50)
[2018-10-25] MEDS: cloNIDine HCL 0.2 MG TAB PO SCH ×3 (08:00→21:50)
[2018-10-25] MEDS: SODIUM BICARBONATE TAB 650 MG TAB PO SCH ×3 (08:00→21:50)
[2018-10-25] MEDS: CARVEDILOL 12.5 MG TAB PO SCH ×2 (08:00→17:45)
[2018-10-25] MEDS: ISOSORBIDE MONONITRATE ER 60 MG TAB.ER.24H PO SCH (08:01)
[2018-10-25] MEDS: SENNOSIDES-DOCUSATE SODIUM 1 EACH TAB PO SCH (08:01)
[2018-10-25] MEDS: PRAZOSIN 1 MG CAP PO SCH ×3 (08:01→21:50)
[2018-10-25] MEDS: INSULN ASP PRT/INSULIN ASPART 100 UNIT/ML 10 ML VIAL SQ SCH ×3 (08:02→17:44)
[2018-10-25] MEDS: LACTULOSE 20 GM/30 ML CUP PO PRN (08:13)
[2018-10-25] MEDS: MORPHINE SULFATE 2 MG/ML SYRINGE IVP PRN ×3 (08:14→20:39)
[2018-10-25 09:57] LABS: Potassium 4.4 mmol/L (3.5-5.1)
[2018-10-25 11:02] VITALS: BMI 27.3
[2018-10-25] MEDS: SODIUM CHLORIDE 0.9% 1,000 ML IV SCH (12:02)
[2018-10-25 12:29] LABS: Glucose,Whole Blood 168 mg/dL (75-99)
[2018-10-25] MEDS: DAPTOmycin 500 MG in SODIUM CHLORIDE 0.9% 50 ML IVPB SCH (16:36)
[2018-10-25 17:26] LABS: Glucose,Whole Blood 123 mg/dL (75-99)
[2018-10-25] MEDS: TAMSULOSIN 0.4 MG CAP.ER.24H PO SCH (17:45)
[2018-10-25 21:17] LABS: Glucose,Whole Blood 109 mg/dL (75-99)
[2018-10-25] MEDS: ATORVASTATIN 40 MG TAB PO SCH (21:50)
[2018-10-25] MEDS: NORTRIPTYLINE 25 MG CAP PO SCH (21:50)
[2018-10-25] MEDS: ENOXAPARIN 40 MG/0.4 ML SYRINGE SQ SCH (21:51)
--- NOTE | 2018-10-25 22:18 | PN ---
PROGRESS NOTE DATE OF SERVICE: 10/25/2018 PRESENTING COMPLAINT: Left below-knee amputation. INTERVAL HISTORY: Patient with non-healing left foot osteomyelitis, status post left above-knee amputation. Patient is overall better. Tolerating a diet. Discussed with Dr. Franco today. Patient is doing well, stable. at the bedside. REVIEW OF SYSTEMS: Done for constitutional, cardiovascular, GI, pulmonary, musculoskeletal; relevant findings as above. CURRENT MEDICATIONS: Reviewed. They include IV Unasyn and daptomycin. PHYSICAL EXAMINATION: Temperature 98.6, pulse 83, respiration 18, blood pressure 156/75, pulse ox 94% on room air. GENERAL APPEARANCE: Lying in bed, comfortable. Awake. EYES: Pupils equal. Conjunctivae normal. NECK: JVD not raised. Mass not palpable. RESPIRATORY: Effort normal. LUNGS: Decreased breath sounds. CARDIOVASCULAR: First and second sounds normal. No edema. ABDOMEN: Soft, non-tender. Liver and spleen not palpable. PSYCHIATRY: Alert and oriented x3. Mood and affect normal. EXTREMITIES: Left above-knee amputation with a dressing in place. INVESTIGATIONS: BUN 38, creatinine 2.34. ASSESSMENT: 1. Left foot wound, non-healing osteomyelitis with diabetic neuropathy leading to left above-knee amputation. 2. Diabetes mellitus, type 2, chronically on insulin, causing peripheral neuropathy and diabetic retinopathy. 3. Essential hypertension. 4. Hyperlipidemia. 5. Chronic kidney disease from diabetic nephropathy and hypertensive nephrosclerosis. 6. Chronic congestive heart failure, diastolic dysfunction. Ejection fraction not known. 7. Peripheral artery disease, severe. 8. Coronary artery disease. Patient not a candidate for surgical intervention. 9. Recent left eye injury, being followed as an outpatient. PLAN: Spoke with Dr. Franco. Patient is stable. Looking at discharge to rehab. Will have Dr. Cowart coordinate the antibiotics, if any. Looking for patient to go to [facility]. MMODL / IJN: [id number] /
--- NOTE | 2018-10-25 22:56 | P.PN ---
Subjective Progress Note Date: 10/25/18 73-year-old male well-known to the infectious disease service for his ongoing significant infections to the lower extremity. He has had Esteban grade 3 diabetic lower extremity ulcers to bilateral lower extremity. He's had multiple toe amputations. The left foot recently has had significant worsening and now he's feeling ill there is increasing sepsis and nonhealing ulcerations of the left foot. With this he is now agreeing to amputation that has been offered in the past, which hopefully will allow him to proceed in a healthier overall status. He feels poorly. He's had a fever at home. Minimal chills no rigors. The wound is draining it is not painful because of the severe peripheral neuropathy. He has had maximal vascular procedures done to the lower extremities. He also has underlying coronary artery disease and was evaluated by cardiology. 10/23/2018 patient is status post the left [id number] amputation and is complaining of some neuropathic type pains to the limb. He denying fevers or chills. Denies other new acute changes 10/25/2018 patient is resting well today. For to his transition to the inpatient rehab unit. The amputation site is still somewhat painful when he is resting well with the addition of the nortriptyline. Objective - Vital Signs Vital signs: Vital Signs Temp 98.6 F 10/25/18 15:00 Pulse 83 10/25/18 15:00 Resp 18 10/25/18 15:49 BP 156/75 10/25/18 15:00 Pulse Ox 94 L 10/25/18 15:00 Intake & Output 10/25/18 10/25/18 10/26/18 06:59 18:59 06:59 Output Total 850 475 Balance -850 -475 Weight 99.5 kg 99.5 kg Output: Urine 850 475 Other: Voiding Method Indwelling Catheter # Bowel Movements 0 - Exam Pleasant 73-year-old male chronically ill HE ENT: Anicteric conjunctiva are pink and moist nasal mucosa grossly intact without significant lesions, there is no thrush. Neck: The neck is supple without significant lymphadenopathy or thyromegaly. Lungs: Good bilateral air entry without significant crackles or wheezing. There is no significant bronchial sounds. There is no egophony or dullness. Heart: Irregular audible S1 and S2 soft S4 no murmur click or rub Abdomen: Positive bowel sounds soft and nontender without palpable masses or organomegaly. There was no guarding or rebound. Extremities: Upper extremities without acute abnormality the lower extremities show evidence of the prior amputation to toes on the right foot. Residual limb site is without significant drainage. Neuro: Awake alert oriented to person place and time. Profound neuropathy - Labs CBC & Chem 7: 10/23/18 10:36 10/25/18 08:45 Labs: Abnormal Lab Results - Last 24 Hours (Table) 10/25/18 10/25/18 10/25/18 Range/Units 07:19 08:45 12:24 Sodium 136 L (137-145) mmol/L Carbon Dioxide 21 L (22-30) mmol/L BUN 38 H (9-20) mg/dL Creatinine 2.34 H (0.66-1.25) mg/dL Glucose 222 H (74-99) mg/dL POC Glucose (mg/dL) 181 H 168 H (75-99) mg/dL 10/25/18 10/25/18 Range/Units 17:23 21:07 Sodium (137-145) mmol/L Carbon Dioxide (22-30) mmol/L BUN (9-20) mg/dL Creatinine (0.66-1.25) mg/dL Glucose (74-99) mg/dL POC Glucose (mg/dL) 123 H 109 H (75-99) mg/dL Laboratory Results WBC 8.3 k/uL (3.8-10.6) 10/23/18 10:36 RBC 3.56 m/uL (4.30-5.90) L 10/23/18 10:36 Hgb 9.9 gm/dL (13.0-17.5) L 10/23/18 10:36 Hct 30.9 % (39.0-53.0) L 10/23/18 10:36 MCV 86.7 fL (80.0-100.0) 10/23/18 10:36 MCH 27.8 pg (25.0-35.0) 10/23/18 10:36 MCHC 32.0 g/dL (31.0-37.0) 10/23/18 10:36 RDW 15.3 % (11.5-15.5) 10/23/18 10:36 Plt Count 219 k/uL (150-450) 10/23/18 10:36 Neutrophils % 83 % 10/23/18 10:36 Lymphocytes % 6 % 10/23/18 10:36 Monocytes % 8 % 10/23/18 10:36 Eosinophils % 2 % 10/23/18 10:36 Basophils % 0 % 10/23/18 10:36 Neutrophils # 6.9 k/uL (1.3-7.7) 10/23/18 10:36 Lymphocytes # 0.5 k/uL (1.0-4.8) L 10/23/18 10:36 Monocytes # 0.6 k/uL (0-1.0) 10/23/18 10:36 Eosinophils # 0.2 k/uL (0-0.7) 10/23/18 10:36 Basophils # 0.0 k/uL (0-0.2) 10/23/18 10:36 PT 10.2 sec (9.0-12.0) 10/20/18 10:00 INR 1.0 (<1.2) 10/20/18 10:00 APTT 25.9 sec (22.0-30.0) 10/20/18 10:00 Sodium 136 mmol/L (137-145) L 10/25/18 08:45 Potassium 4.4 mmol/L (3.5-5.1) 10/25/18 08:45 Chloride 103 mmol/L (98-107) 10/25/18 08:45 Carbon Dioxide 21 mmol/L (22-30) L 10/25/18 08:45 Anion Gap 12 mmol/L 10/25/18 08:45 BUN 38 mg/dL (9-20) H 10/25/18 08:45 Creatinine 2.34 mg/dL (0.66-1.25) H 10/25/18 08:45 Est GFR (CKD-EPI)AfAm 31 (>60 ml/min/1.73 sqM) 10/25/18 08:45 Est GFR (CKD-EPI)NonAf 27 (>60 ml/min/1.73 sqM) 10/25/18 08:45 Glucose 222 mg/dL (74-99) H 10/25/18 08:45 POC Glucose (mg/dL) 109 mg/dL (75-99) H 10/25/18 21:07 POC Glu Oyster Shucker Arely Villalobos 10/25/18 21:07 Plasma Lactic Acid [place] 1.1 mmol/L (0.7-2.0) 10/20/18 10:00 Calcium 9.0 mg/dL (8.4-10.2) 10/25/18 08:45 Total Bilirubin 0.4 mg/dL (0.2-1.3) 10/20/18 10:00 AST 20 U/L (17-59) 10/20/18 10:00 ALT 26 U/L (21-72) 10/20/18 10:00 Alkaline Phosphatase 93 U/L (38-126) 10/20/18 10:00 Total Protein 6.6 g/dL (6.3-8.2) 10/20/18 10:00 Albumin 3.8 g/dL (3.5-5.0) 10/20/18 10:00 Microbiology 10/20/18 10:00 Blood Blood Culture Gram Stain - Final 10/20/18 10:00 Blood Blood Culture - Final Staphylococcus epidermidis 10/20/18 10:00 Blood Blood Culture - Final Assessment and Plan (1) 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 The patient has been evaluated by his vascular surgeon there is no plans for the below knee amputation to resolve the chronic nonhealing infectious process. The goal is to remove the chronic infected area and hopefully have him fitted for a prosthesis soon so that he is able to get up and become active again. He has been bedbound, in the retirement and really nonfunctional for more than a year and hopefully with resolution of the infectious process he can regain some quality of life. He and his own property that he isn't longer able to take care of it appears they are in the midst of trying to change residence this is much more amenable to his current situation. Somewhat recent cultures have showed a plethora of organisms including anaerobic pathogens as well as staph aureus and Staphylococcus auricularis. Unasyn has been started, daptomycin will be added in the direct perioperative timeframe. Local wound care has been initiated by the surgeon and residual limb care will be directed after surgery. Elevation of the limb is helpful. Ensure that he has adequate protein intake. Glucose control is helpful and we shall monitor. 10/23/2018 patient is now doing considerably better status post the left above- the-knee amputation. Is complaining of some neuropathic pain. Nortriptyline will be added at at bedtime to see if this cannot help with his neuropathic pain and get him some rest. He is receiving pain medications to help with his acute surgical pain. Blood cultures contamination and needs no further treatment. We'll continue antibiotic therapy clinic short period of time to ensure clearance of any residual bacteria within the lymphatic channels of the leg. Patient as well as questions were answered. 10/25/2018 patient is improved. Resting better with the addition of nortriptyline. Will be going to inpatient rehab hopefully tomorrow to improve his strength and have him ready for independent living in the home situation. He will not require any ongoing intravenous antibiotic therapy discharge. 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
[2018-10-26] MEDS: AMPICILLIN-SULBACTAM 3 GM in SODIUM CHLORIDE 0.9% 100 ML IVPB SCH ×2 (01:03→07:50)
[2018-10-26] MEDS: HYDROcodone/APAP 7.5-325MG 1 EACH TAB PO PRN ×4 (01:06→22:01)
[2018-10-26 07:35] LABS: Glucose,Whole Blood 121 mg/dL (75-99)
[2018-10-26] MEDS: INSULN ASP PRT/INSULIN ASPART 100 UNIT/ML 10 ML VIAL SQ SCH ×3 (07:50→17:37)
[2018-10-26] MEDS: PRAZOSIN 1 MG CAP PO SCH ×3 (07:51→21:50)
[2018-10-26] MEDS: cloNIDine HCL 0.2 MG TAB PO SCH ×3 (07:51→21:49)
[2018-10-26] MEDS: CARVEDILOL 12.5 MG TAB PO SCH ×2 (07:51→17:37)
[2018-10-26] MEDS: hydrALAZINE HCL 50 MG TAB PO SCH ×3 (07:52→21:50)
[2018-10-26] MEDS: ISOSORBIDE MONONITRATE ER 60 MG TAB.ER.24H PO SCH (07:52)
[2018-10-26] MEDS: SODIUM BICARBONATE TAB 650 MG TAB PO SCH ×3 (07:53→21:50)
[2018-10-26] MEDS: SENNOSIDES-DOCUSATE SODIUM 1 EACH TAB PO SCH (07:53)
[2018-10-26 10:26] LABS: Calcium 8.5 mg/dL (8.4-10.2); Potassium 4.4 mmol/L (3.5-5.1)
[2018-10-26 12:03] LABS: Glucose,Whole Blood 204 mg/dL (75-99)
[2018-10-26] MEDS: LACTULOSE 20 GM/30 ML CUP PO PRN (12:33)
[2018-10-26] MEDS: MORPHINE SULFATE 2 MG/ML SYRINGE IVP PRN (12:34)
[2018-10-26] MEDS: SODIUM CHLORIDE 0.9% 1,000 ML IV SCH (12:36)
[2018-10-26 17:23] LABS: Glucose,Whole Blood 163 mg/dL (75-99)
[2018-10-26] MEDS: TAMSULOSIN 0.4 MG CAP.ER.24H PO SCH (17:38)
[2018-10-26 20:57] LABS: Glucose,Whole Blood 134 mg/dL (75-99)
[2018-10-26] MEDS: ATORVASTATIN 40 MG TAB PO SCH (21:49)
[2018-10-26] MEDS: ENOXAPARIN 40 MG/0.4 ML SYRINGE SQ SCH (21:49)
[2018-10-26] MEDS: NORTRIPTYLINE 25 MG CAP PO SCH (21:49)
--- NOTE | 2018-10-26 22:02 | PN ---
PROGRESS NOTE DATE OF SERVICE: 10/26/2018 PRESENTING COMPLAINT: Left above-knee amputation. INTERVAL HISTORY: This is a patient with non-healing left foot osteomyelitis. He underwent left above- knee amputation. Tolerating diet. Blood pressure medications were adjusted. Some readings are still running above. Some pain is present. Otherwise, no new issues. REVIEW OF SYSTEMS: Done for constitutional, cardiovascular, GI, pulmonary; relevant findings as above. CURRENT MEDICATIONS: Reviewed. They include IV Unasyn and daptomycin. PHYSICAL EXAMINATION: Temperature 98.6, pulse 86, respiration 18, blood pressure 160/86, pulse ox 97% on room air. GENERAL APPEARANCE: Lying in bed, awake. EYES: Pupils equal. Conjunctivae normal. NECK: JVD not raised. Mass not palpable. RESPIRATORY: Effort normal. LUNGS: Decreased breath sounds. CARDIOVASCULAR: First and second sounds normal. No edema. ABDOMEN: Soft, non-tender. Liver and spleen not palpable. PSYCHIATRY: Alert and oriented x3. Mood and affect normal. EXTREMITIES: Left above-knee amputation with dressing in place. INVESTIGATIONS: BUN 37, creatinine 2.24. Accu-Cheks are noted. ASSESSMENT: 1. Left foot wound/osteomyelitis, non-healing, with diabetic neuropathy leading to left above-knee amputation. 2. Diabetes mellitus, type 2, chronically on insulin, causing peripheral neuropathy and diabetic retinopathy. 3. Essential hypertension. 4. Hyperlipidemia. 5. Chronic kidney disease from diabetic nephropathy and hypertensive nephrosclerosis. 6. Chronic congestive heart failure, diastolic dysfunction, ejection fraction not known. 7. Peripheral artery disease, severe. 8. Coronary artery disease. Patient is not a candidate for surgical intervention. 9. Recent left eye injury, being followed as an outpatient. 10.Essential hypertension, still somewhat uncontrolled. PLAN: I spoke to social services manager and nurse. Will adjust patient's Prazosin, increasing it to 4 mg 3 times a day. Patient's IV antibiotics will be discontinued. He should be able to go to the inpatient rehab at [facility] tomorrow. MMODL / IJN: [id number] /
[2018-10-27 07:45] LABS: Glucose,Whole Blood 170 mg/dL (75-99)
[2018-10-27] MEDS: INSULN ASP PRT/INSULIN ASPART 100 UNIT/ML 10 ML VIAL SQ SCH ×2 (08:01→13:09)
[2018-10-27] MEDS: SODIUM BICARBONATE TAB 650 MG TAB PO SCH ×2 (08:06→16:01)
[2018-10-27] MEDS: CARVEDILOL 12.5 MG TAB PO SCH (08:06)
[2018-10-27] MEDS: SENNOSIDES-DOCUSATE SODIUM 1 EACH TAB PO SCH (08:06)
[2018-10-27] MEDS: hydrALAZINE HCL 50 MG TAB PO SCH ×2 (08:06→16:00)
[2018-10-27] MEDS: cloNIDine HCL 0.2 MG TAB PO SCH ×2 (08:07→16:00)
[2018-10-27] MEDS: ISOSORBIDE MONONITRATE ER 60 MG TAB.ER.24H PO SCH (08:07)
[2018-10-27] MEDS: PRAZOSIN 1 MG CAP PO SCH ×2 (08:07→16:00)
[2018-10-27 12:27] LABS: Glucose,Whole Blood 211 mg/dL (75-99)
[2018-10-27] MEDS: HYDROcodone/APAP 7.5-325MG 1 EACH TAB PO PRN (13:09)
[2018-10-27] MEDS: SODIUM CHLORIDE 0.9% 1,000 ML IV SCH (13:13)
[2018-10-27 15:13] VITALS: BP 139/72; PULSE 76; RESP 18; TEMP 98
--- NOTE | 2018-10-27 15:21 | DS ---
DISCHARGE SUMMARY DATE OF ADMISSION: 10/20/2018 DATE OF DISCHARGE: 10/27/2018 FINAL DIAGNOSES: 1. Left foot wound, acute on chronic osteomyelitis, nonhealing with diabetic .neuropathy, leading to left above-knee amputation. 2. Diabetes mellitus type 2, chronically on insulin, causing peripheral neuropathy and diabetic retinopathy. 3. Essential hypertension. 4. Hyperlipidemia. 5. Chronic kidney disease from diabetic nephropathy and hypertensive nephrosclerosis stage III. 6. Chronic congestive heart failure, diastolic dysfunction, ejection fraction not known. 7. Peripheral artery disease, severe. 8. Coronary artery disease. Patient not a candidate for surgical intervention. 9. Recent left eye injury, being followed as an outpatient. 10.Essential hypertension. CONSULTATION: 1. Dr. Cowart from Infectious Disease. 2. Dr. Qing Franco from Vascular Surgery. 3. Dr. Han from Rehab Medicine. 4. Dr. Astudillo from Cardiology. HOSPITAL COURSE: This pleasant gentleman with multiple problems presented with nonhealing left foot osteomyelitis, having failed outpatient treatment. Started on antibiotics and then he had taken a decision to proceed with left above-knee amputation that was done. Incision is healing well per Dr. Franco. Antibiotics were completed and finished. Blood pressure medications were adjusted. Care was discussed with the patient and today. Questions were answered. PHYSICAL EXAMINATION: Lungs are clear. Cardiovascular first and second sounds are normal. Dressing over the left stump. Temperature 98.1, pulse 86, respiration 17, blood pressure 142/77, pulse ox 96% on room air. INVESTIGATIONS: Potassium 4.4, BUN 37, creatinine 2.24, hemoglobin 11.2. DISCHARGE MEDICATIONS: 1. Nitrostat 0.4 sublingual q.5 p.r.n. 2. Rocaltrol 0.5 mcg Tuesday, Tuesday. 3. Coreg 25 mg p.o. b.i.d. 4. Humulin 70/30 twenty-five units subcu a.c. t.i.d. 5. Lipitor 40 mg q.h.s. 6. Imdur ER 60 mg p.o. daily. 7. Sodium bicarb 650 mg p.o. t.i.d. 8. Catapres 0.2 mg p.o. t.i.d. 9. Hydralazine 100 mg p.o. t.i.d. 10.[place] 7.5 one tablet q.6 p.r.n. 11.Lactulose 20 g p.o. daily p.r.n. 12.Pamelor 25 mg p.o. q.h.s. 13.Minipress 4 mg p.o. t.i.d. 14.Senokot S 1 tablet p.o. daily. 15.Flomax 0.4 mg before supper. FOLLOWUP: Follow up with Dr. Franco in 1 week. Follow up with Dr. Qing Murillo in 2 weeks; Dr. Jack De Jesus after DC from rehab. Follow up with Dr. Han at [facility]. DISPOSITION: [facility], follow with Dr. Han there. Discussion and discharge planning more than 35 minutes. MMODL / IJN: [id number] /
--- NOTE | 2018-10-27 21:15 | P.PN ---
Subjective Progress Note Date: 10/27/18 73-year-old male well-known to the infectious disease service for his ongoing significant infections to the lower extremity. He has had Esteban grade 3 diabetic lower extremity ulcers to bilateral lower extremity. He's had multiple toe amputations. The left foot recently has had significant worsening and now he's feeling ill there is increasing sepsis and nonhealing ulcerations of the left foot. With this he is now agreeing to amputation that has been offered in the past, which hopefully will allow him to proceed in a healthier overall status. He feels poorly. He's had a fever at home. Minimal chills no rigors. The wound is draining it is not painful because of the severe peripheral neuropathy. He has had maximal vascular procedures done to the lower extremities. He also has underlying coronary artery disease and was evaluated by cardiology. 10/23/2018 patient is status post the left ildrq-oyl-llaf amputation and is complaining of some neuropathic type pains to the limb. He denying fevers or chills. Denies other new acute changes 10/25/2018 patient is resting well today. For to his transition to the inpatient rehab unit. The amputation site is still somewhat painful when he is resting well with the addition of the nortriptyline. 10/27/2018 patient is feeling considerably better today. Neuropathic pain is improved. He is resting quite a bit better since starting nortriptyline. Is ready for transfer to the inpatient rehab unit to receive his aggressive physical therapy to regain his independence in the home situation. Objective - Vital Signs Vital signs: Vital Signs Temp 98.0 F 10/27/18 15:00 Pulse 76 10/27/18 15:00 Resp 18 10/27/18 15:00 BP 139/72 10/27/18 15:00 Pulse Ox 97 10/27/18 15:00 Intake & Output 10/27/18 10/27/18 10/28/18 06:59 18:59 06:59 Intake Total 480 720 Output Total 1300 800 Balance -820 -80 Intake: Oral 480 720 Output: Urine 1300 800 Other: Voiding Method Indwelling Catheter Indwelling Catheter # Voids 0 # Bowel Movements 0 0 - Exam Pleasant 73-year-old male chronically ill HE ENT: Anicteric conjunctiva are pink and moist nasal mucosa grossly intact without significant lesions, there is no thrush. Neck: The neck is supple without significant lymphadenopathy or thyromegaly. Lungs: Good bilateral air entry without significant crackles or wheezing. There is no significant bronchial sounds. There is no egophony or dullness. Heart: Irregular audible S1 and S2 soft S4 no murmur click or rub Abdomen: Positive bowel sounds soft and nontender without palpable masses or organomegaly. There was no guarding or rebound. Extremities: Upper extremities without acute abnormality the lower extremities show evidence of the prior amputation to toes on the right foot. Residual limb site is without significant drainage. Neuro: Awake alert oriented to person place and time. Profound neuropathy - Labs CBC & Chem 7: 10/23/18 10:36 10/26/18 09:09 Labs: Abnormal Lab Results - Last 24 Hours (Table) 10/27/18 10/27/18 Range/Units 07:15 12:02 POC Glucose (mg/dL) 170 H 211 H (75-99) mg/dL Laboratory Results WBC 8.3 k/uL (3.8-10.6) 10/23/18 10:36 RBC 3.56 m/uL (4.30-5.90) L 10/23/18 10:36 Hgb 9.9 gm/dL (13.0-17.5) L 10/23/18 10:36 Hct 30.9 % (39.0-53.0) L 10/23/18 10:36 MCV 86.7 fL (80.0-100.0) 10/23/18 10:36 MCH 27.8 pg (25.0-35.0) 10/23/18 10:36 MCHC 32.0 g/dL (31.0-37.0) 10/23/18 10:36 RDW 15.3 % (11.5-15.5) 10/23/18 10:36 Plt Count 219 k/uL (150-450) 10/23/18 10:36 Neutrophils % 83 % 10/23/18 10:36 Lymphocytes % 6 % 10/23/18 10:36 Monocytes % 8 % 10/23/18 10:36 Eosinophils % 2 % 10/23/18 10:36 Basophils % 0 % 10/23/18 10:36 Neutrophils # 6.9 k/uL (1.3-7.7) 10/23/18 10:36 Lymphocytes # 0.5 k/uL (1.0-4.8) L 10/23/18 10:36 Monocytes # 0.6 k/uL (0-1.0) 10/23/18 10:36 Eosinophils # 0.2 k/uL (0-0.7) 10/23/18 10:36 Basophils # 0.0 k/uL (0-0.2) 10/23/18 10:36 PT 10.2 sec (9.0-12.0) 10/20/18 10:00 INR 1.0 (<1.2) 10/20/18 10:00 APTT 25.9 sec (22.0-30.0) 10/20/18 10:00 Sodium 135 mmol/L (137-145) L 10/26/18 09:09 Potassium 4.4 mmol/L (3.5-5.1) 10/26/18 09:09 Chloride 103 mmol/L (98-107) 10/26/18 09:09 Carbon Dioxide 22 mmol/L (22-30) 10/26/18 09:09 Anion Gap 10 mmol/L 10/26/18 09:09 BUN 37 mg/dL (9-20) H 10/26/18 09:09 Creatinine 2.24 mg/dL (0.66-1.25) H 10/26/18 09:09 Est GFR (CKD-EPI)AfAm 33 (>60 ml/min/1.73 sqM) 10/26/18 09:09 Est GFR (CKD-EPI)NonAf 29 (>60 ml/min/1.73 sqM) 10/26/18 09:09 Glucose 226 mg/dL (74-99) H 10/26/18 09:09 POC Glucose (mg/dL) 211 mg/dL (75-99) H 10/27/18 12:02 POC Glu [employer] Plant Supervisor ID Justina Zelaya 10/27/18 12:02 Plasma Lactic Acid [place] 1.1 mmol/L (0.7-2.0) 10/20/18 10:00 Calcium 8.5 mg/dL (8.4-10.2) 10/26/18 09:09 Total Bilirubin 0.4 mg/dL (0.2-1.3) 10/20/18 10:00 AST 20 U/L (17-59) 10/20/18 10:00 ALT 26 U/L (21-72) 10/20/18 10:00 Alkaline Phosphatase 93 U/L (38-126) 10/20/18 10:00 Total Protein 6.6 g/dL (6.3-8.2) 10/20/18 10:00 Albumin 3.8 g/dL (3.5-5.0) 10/20/18 10:00 Microbiology 10/20/18 10:00 Blood Blood Culture Gram Stain - Final 10/20/18 10:00 Blood Blood Culture - Final Staphylococcus epidermidis 10/20/18 10:00 Blood Blood Culture - Final Assessment and Plan (1) 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 The patient has been evaluated by his vascular surgeon there is no plans for the below knee amputation to resolve the chronic nonhealing infectious process. The goal is to remove the chronic infected area and hopefully have him fitted for a prosthesis soon so that he is able to get up and become active again. He has been bedbound, in the retirement and really nonfunctional for more than a year and hopefully with resolution of the infectious process he can regain some quality of life. He and his own property that he isn't longer able to take care of it appears they are in the midst of trying to change residence this is much more amenable to his current situation. Somewhat recent cultures have showed a plethora of organisms including anaerobic pathogens as well as staph aureus and Staphylococcus auricularis. Unasyn has been started, daptomycin will be added in the direct perioperative timeframe. Local wound care has been initiated by the surgeon and residual limb care will be directed after surgery. Elevation of the limb is helpful. Ensure that he has adequate protein intake. Glucose control is helpful and we shall monitor. 10/23/2018 patient is now doing considerably better status post the left above- the-knee amputation. Is complaining of some neuropathic pain. Nortriptyline will be added at at bedtime to see if this cannot help with his neuropathic pain and get him some rest. He is receiving pain medications to help with his acute surgical pain. Blood cultures contamination and needs no further treatment. We'll continue antibiotic therapy clinic short period of time to ensure clearance of any residual bacteria within the lymphatic channels of the leg. Patient as well as questions were answered. 10/25/2018 patient is improved. Resting better with the addition of nortriptyline. Will be going to inpatient rehab hopefully tomorrow to improve his strength and have him ready for independent living in the home situation. He will not require any ongoing intravenous antibiotic therapy discharge. 10/27/2018 patient is noted further improvement. Neuropathic pain is improving. Initial level is improving and is unable to open a relate with a walker with PT assistance. Appetite is adequate and blood sugars are going well. He will transfer to the inpatient rehab unit for aggressive physical therapy and occupational therapy so they can regain his independence in his home setting. 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
== END 2018-10-27 16:31 | DRG 617 ==
LOC: EC 09:15 → 4MS4W 11:35
PROVIDERS: ADMIT Hospitalist; ATTEND Hospitalist
PROC: 0Y6D0Z1 Detachment at Left Upper Leg, High, Open Approach (ICD-10-PCS; principal; 2018-10-22 08:00)
DX: E11.69 Type 2 diabetes mellitus with other specified complication (principal); E11.52 Type 2 diabetes mellitus with diabetic peripheral angiopathy with gangrene; I70.262 Atherosclerosis of native arteries of extremities with gangrene, left leg; I13.0 Hypertensive heart and chronic kidney disease with heart failure and stage 1 through stage 4 chronic kidney disease, or unspecified chronic kidney disease; I50.32 Chronic diastolic (congestive) heart failure; L03.116 Cellulitis of left lower limb; M86.472 Chronic osteomyelitis with draining sinus, left ankle and foot; T81.30XA Disruption of wound, unspecified, initial encounter; M86.172 Other acute osteomyelitis, left ankle and foot; E11.42 Type 2 diabetes mellitus with diabetic polyneuropathy; E11.21 Type 2 diabetes mellitus with diabetic nephropathy; E11.22 Type 2 diabetes mellitus with diabetic chronic kidney disease; E11.319 Type 2 diabetes mellitus with unspecified diabetic retinopathy without macular edema; E11.621 Type 2 diabetes mellitus with foot ulcer; L97.529 Non-pressure chronic ulcer of other part of left foot with unspecified severity; E78.5 Hyperlipidemia, unspecified; G89.18 Other acute postprocedural pain; H91.91 Unspecified hearing loss, right ear; I25.10 Atherosclerotic heart disease of native coronary artery without angina pectoris; I44.0 Atrioventricular block, first degree; N18.3 Chronic kidney disease, stage 3 (moderate); Z74.01 Bed confinement status; Z79.4 Long term (current) use of insulin; Z79.899 Other long term (current) drug therapy; Z82.3 Family history of stroke; Z82.49 Family history of ischemic heart disease and other diseases of the circulatory system; Z86.718 Personal history of other venous thrombosis and embolism; Z87.891 Personal history of nicotine dependence; Z89.422 Acquired absence of other left toe(s); Z89.421 Acquired absence of other right toe(s); Z88.1 Allergy status to other antibiotic agents; Z88.8 Allergy status to other drugs, medicaments and biological substances
CPT/HCPCS: 36415; 80048; 80053; 83605; 85025; 85610; 85730; 87040; 87077; 87186; 88307; 93005; 96365; 99284

== ENCOUNTER 2019-06-18 07:52 | Observation (INO) | payer MEDICARE ==
--- NOTE | 2019-06-18 08:00 | ED ---
General Adult HPI - General Stated complaint: hypoglycemia Time Seen by Provider: 06/18/19 07:53 Source: patient, EMS Mode of arrival: EMS Limitations: no limitations - History of Present Illness Initial comments: Dictation was produced using [employer] dictation software. please excuse any grammatical, word or spelling errors. Chief Complaint: 74-year-old male transferred to our emergency Department from [facility] for hyperglycemia, elevated troponin History of Present Illness: 74-year-old male he was initially brought to [facility] for symptoms of hypoglycemia. Patient was given parenteral glucose. Laboratory evaluation was obtained and is found to have elevated troponin of 0.096. Patient at that time denied any chest pain shortness of breath or symptoms of acute coronary syndrome. He was transferred to [facility] for non-ST segment elevation PR. Current documentation patient does not have any obvious source of hypoglycemia. He is a insulin- dependent diabetic. Patient does have bilateral chronic foot wounds that he is receiving completed IV antibiotic treatment. Patient was started on heparin and given aspirin. The ROS documented in this emergency department record has been reviewed and confirmed by me. Those systems with pertinent positive or negative responses have been documented in the HPI. All other systems are other negative and/or noncontributory. PHYSICAL EXAM: General Impression: Alert and oriented x3, not in acute distress HEENT: Normocephalic atraumatic, extra-ocular movements intact, pupils equal and reactive to light bilaterally, mucous membranes moist. Cardiovascular: Heart regular rate and rhythm, S1&S2 audible, no murmurs, rubs or gallops Chest: Lungs clear to auscultation bilaterally, no rhonchi, no wheeze, no rales Abdomen: Bowel sounds present, abdomen soft, non-tender, non-distended, no organomegaly Musculoskeletal: Pulses present and equal in all extremities, no peripheral edema Motor: no focal deficits noted Neurological: CN II-XII grossly intact, no focal motor or sensory deficits noted Skin: Intact with no visualized rashes Psych: Normal affect and mood ED course: 74-year-old male transferred from [facility] for elevated troponin and hypoglycemia. Patient does not have any ACS symptoms. Vital signs upon arrival shows blood pressure 217 over 11, rest of vital signs within acceptable limits. Troponin levels were trended. It appears that patient has chronic troponin elevation. Currently denies any ACS symptoms. Patient's blood sugar 77. Discussed patient case, she was willing to accept patients care. EKG interpretation: Ventricular rate 66, normal sinus rhythm, TX interval 200, QRS 112, QTc 44. No TX prolongation, no QTC prolongation, no ST or T-wave changes noted. EKG compared to 10/20/2018 showing no changes. Overall, this EKG is unremarkable - Related Data Home Medications Medication Instructions Recorded Confirmed Calcitriol [Rocaltrol] 0.25 mcg PO Q7D 12/26/17 06/18/19 Carvedilol [Coreg] 25 mg PO BID 04/03/18 06/18/19 Aspirin [Adult Low Dose Aspirin EC] 81 mg PO DAILY 06/18/19 06/18/19 Cholecalciferol [Vitamin D3 (25 5,000 unit PO DAILY 06/18/19 06/18/19 Mcg = 1000 Iu)] Insulin Regular [HumuLIN R] 15 - 20 units SQ TID 06/18/19 06/18/19 Multivitamin/Iron/Folic Acid 1 tab PO DAILY 06/18/19 06/18/19 [Centrum Complete Multivit Tab] Prazosin [Minipress] 2 mg PO TID 06/18/19 06/18/19 Sennosides-Docusate Sodium 1 tab PO DAILY 06/18/19 06/18/19 [Senokot-S] hydrALAZINE HCL [Apresoline] 100 mg PO TID 06/18/19 06/18/19 Previous Rx's Medication Instructions Recorded Atorvastatin [Lipitor] 40 mg PO HS #30 tab 09/17/18 Isosorbide Mononitrate ER [Imdur] 60 mg PO DAILY #30 tab.er.24h 09/17/18 cloNIDine HCL [Catapres] 0.2 mg PO TID #90 tab 09/17/18 Tamsulosin [Flomax] 0.4 mg PO PC-SUPPER cap.er.24h 10/27/18 Allergies Allergy/AdvReac Type Severity Reaction Status Date / Time amlodipine Allergy Anaphylaxis Verified 06/18/19 08:04 lisinopril Allergy tongue Verified 06/18/19 08:04 swelling vancomycin Allergy Unknown Verified 06/18/19 08:04 Review of Systems ROS Statement: Those systems with pertinent positive or pertinent negative responses have been documented in the HPI. ROS Other: All systems not noted in ROS Statement are negative. Past Medical History Past Medical History: Heart Failure, Diabetes Mellitus, Deep Vein Thrombosis (DVT), Hyperlipidemia, Hypertension, Syncope Additional Past Medical History / Comment(s): pt wants flu vaccine while here. other hx:per pt's "xray noted lung nodules". 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, L foot gr toe, 3rd &2nd toe amputated; Rfoot 3rd toe amputated, Bypass in Bilat legs, eulogio knee sx(cartilage), lt arm picc line.since removed, x3 sx total facial plastic sx and grafting done area under lt eye d/t injury, Ackerman placement.-rt upper chest Past Anesthesia/Blood Transfusion Reactions: Postoperative Nausea & Vomiting (PONV) Additional Past Anesthesia/Blood Transfusion Reaction / Comment(s): never recieved blood Past Psychological History: No Psychological Hx Reported Smoking Status: Never smoker Past Alcohol Use History: None Reported Past Drug Use History: None Reported - Past Family History Father Family Medical History: Deep Vein Thrombosis (DVT) Additional Family Medical History / Comment(s): had valve sx- a week later from complications Mother Family Medical History: Congestive Heart Failure (CHF) Additional Family Medical History / Comment(s): phlebitis General Exam Limitations: no limitations Course Vital Signs 06/18/19 07:55 Temperature 98.9 F Pulse Rate 68 Respiratory 20 Rate Blood Pressure 207/101 O2 Sat by Pulse 97 Oximetry Medical Decision Making - Lab Data Lab Results 06/18/19 Range/Units 08:00 POC Glucose (mg/dL) 77 (75-99) mg/dL POC [employer] ID Ron Carranza Disposition Clinical Impression: Elevated troponin, Hypoglycemia Disposition: ADMITTED IP TO THIS HOSP Condition: Fair Referrals: Jack De Jesus MD [Primary Care Provider] - 1-2 days Decision Time: 08:15
[2019-06-18 08:02] LABS: Glucose,Whole Blood 77 mg/dL (75-99)
[2019-06-18] MEDS ORDERED: NITROGLYCERIN SL TABS 0.4 MG TAB SUBLINGUAL PRN (08:15)
[2019-06-18] MEDS ORDERED: hydrALAZINE HCL 20 MG/ML 1 ML VIAL IVP STA (08:27)
[2019-06-18] MEDS ORDERED: HEPARIN SOD,PORK IN 0.45% NACL 25,000 UNIT in 0.45% NACL 1 250ML.BAG IV SCH (08:30)
[2019-06-18 08:34] LABS: INR 0.9 (<1.2); Prothrombin Time 10.1 sec (9.0-12.0)
[2019-06-18] MEDS: cloNIDine HCL 0.2 MG TAB PO SCH ×4 (09:44→21:05)
[2019-06-18] MEDS: hydrALAZINE HCL 50 MG TAB PO SCH ×4 (09:44→21:04)
[2019-06-18] MEDS: CARVEDILOL 12.5 MG TAB PO SCH ×2 (09:45→17:56)
[2019-06-18 09:55] LABS: Glucose,Whole Blood 48 mg/dL (75-99)
[2019-06-18] MEDS ORDERED: ASPIRIN 81 MG PO SCH (10:00)
[2019-06-18] MEDS: MULTIVITAMINS, THERA 1 EACH TAB PO SCH (10:41)
[2019-06-18] MEDS: ISOSORBIDE MONONITRATE ER 60 MG TAB.ER.24H PO SCH (10:41)
[2019-06-18] MEDS: CHOLECALCIFEROL 1,000 UNIT TAB PO SCH (10:41)
[2019-06-18] MEDS: PRAZOSIN 1 MG CAP PO SCH ×3 (10:42→17:56)
[2019-06-18 10:47] LABS: Glucose,Whole Blood 114 mg/dL (75-99)
[2019-06-18] MEDS: SENNOSIDES-DOCUSATE SODIUM 1 EACH TAB PO SCH (10:49)
[2019-06-18 11:53] LABS: Glucose,Whole Blood 112 mg/dL (75-99)
--- NOTE | 2019-06-18 12:07 | P.CRDCN ---
History of Present Illness Consult date: 06/18/19 Requesting physician: Rk Crockett Reason for Consult (text): Abnormal troponin Chief complaint: Hypoglycemia History of present illness: This is a pleasant 74-year-old gentleman with past medical history significant for multivessel coronary artery disease, hypertension, chronic kidney disease, hyperlipidemia, diabetes, peripheral vascular disease, patient underwent left [id number] amputation. He follows regularly with Dr. See in the office. He did have a cardiac catheterization performed in 2017 which revealed 20-30% LAD stenosis proximally as well as a 70-80% in the midsegment, circumflex with 70-80% noted 90% in the OM and second OM as well as an 80% stenosis in the mid RCA, patient is not a candidate for surgical intervention and is currently on medical therapy. Patient also has known renal insufficiency with creatinine that runs in the range of 1.8-2.1. Patient was brought to [facility], after being found by his in bed to be extremely diap horetic, he was also noted to have mental status changes. They checked his blood sugars at that time which came back to be 11. For this reason he was brought to [place] emergency room. Troponins were drawn in the emergency room which came back to be abnormal and for that reason the patient was transferred here for further evaluation and treatment. EKG performed at [facility] showed a normal sinus rhythm with ST-T wave changes noted in the inferior lateral leads, similar to prior EKGs. Laboratory data from [facility] sodium 145, potassium 3.2, chloride 109, CO2 25, BUN 42, creatinine 2.6, AST and ALT are normal troponin 0.096. Upon review of patient's prior admissions to the hospital, his troponin is consistently in this abnormal range, likely secondary to persistent abnormal renal function. Patient denies having any chest discomfort and is breathing overall has been stable. At the time of my examination, patient is alert and oriented, his is at bedside. His blood pressure on arrival here 207/100, currently 200/90 patient did not receive any of his antihypertensive medications. The following medications have been resumed, patient is on aspirin 81 mg daily, Lipitor 40 mg daily, Coreg 25 mg one tablet by mouth twice a day, clonidine 0.2 mg 3 times a day, hydralazine 100 mg 3 times a day, Imdur 60 mg daily, Past Medical History Past Medical History: Heart Failure, Diabetes Mellitus, Deep Vein Thrombosis (DVT), Hyperlipidemia, Hypertension, Syncope Additional Past Medical History / Comment(s): pt wants flu vaccine while here. other hx:per pt's "xray noted lung nodules". 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, L foot gr toe, 3rd &2nd toe amputated; Rfoot 3rd toe amputated, Bypass in Bilat legs, eulogio knee sx(cartilage), lt arm picc line.since removed, x3 sx total facial plastic sx and grafting done area under lt eye d/t injury, Ackerman placement.-rt upper chest Past Anesthesia/Blood Transfusion Reactions: Postoperative Nausea & Vomiting (PONV) Additional Past Anesthesia/Blood Transfusion Reaction / Comment(s): never recieved blood Past Psychological History: No Psychological Hx Reported Smoking Status: Never smoker Past Alcohol Use History: None Reported Past Drug Use History: None Reported - Past Family History Father Family Medical History: Deep Vein Thrombosis (DVT) Additional Family Medical History / Comment(s): had valve sx- a week later from complications Mother Family Medical History: Congestive Heart Failure (CHF) Additional Family Medical History / Comment(s): phlebitis Medications and Allergies Home Medications Medication Instructions Recorded Confirmed Type Calcitriol [Rocaltrol] 0.25 mcg PO Q7D 12/26/17 06/18/19 History Carvedilol [Coreg] 25 mg PO BID 04/03/18 06/18/19 History Atorvastatin [Lipitor] 40 mg PO HS #30 tab 09/17/18 06/18/19 Rx Isosorbide Mononitrate ER [Imdur] 60 mg PO DAILY #30 tab.er.24h 09/17/18 06/18/19 Rx cloNIDine HCL [Catapres] 0.2 mg PO TID #90 tab 09/17/18 06/18/19 Rx Tamsulosin [Flomax] 0.4 mg PO PC-SUPPER cap.er.24h 10/27/18 06/18/19 Rx Aspirin [Adult Low Dose Aspirin EC] 81 mg PO DAILY 06/18/19 06/18/19 History Cholecalciferol [Vitamin D3 (25 5,000 unit PO DAILY 06/18/19 06/18/19 History Mcg = 1000 Iu)] Insulin Regular [HumuLIN R] 15 - 20 units SQ TID 06/18/19 06/18/19 History Multivitamin/Iron/Folic Acid 1 tab PO DAILY 06/18/19 06/18/19 History [Centrum Complete Multivit Tab] Prazosin [Minipress] 2 mg PO TID 06/18/19 06/18/19 History Sennosides-Docusate Sodium 1 tab PO DAILY 06/18/19 06/18/19 History [Senokot-S] hydrALAZINE HCL [Apresoline] 100 mg PO TID 06/18/19 06/18/19 History Allergies Allergy/AdvReac Type Severity Reaction Status Date / Time amlodipine Allergy Anaphylaxis Verified 06/18/19 08:04 lisinopril Allergy tongue Verified 06/18/19 08:04 swelling vancomycin Allergy Unknown Verified 06/18/19 08:04 Physical Exam Vitals: Vital Signs Temp Pulse Pulse Resp BP BP Pulse Ox 06/18/19 11:49 97.6 F 79 16 200/93 99 06/18/19 11:11 98.7 F 72 20 184/88 99 06/18/19 09:56 69 20 200/88 100 06/18/19 07:55 98.9 F 68 20 207/101 97 Intake and Output 06/17/19 06/18/19 06/18/19 22:59 06:59 14:59 Other: Weight 88.451 kg PHYSICAL EXAMINATION: GENERAL: 74-year-old gentleman in no acute distress at the time of my examination HEENT: Head is atraumatic, normocephalic. Pupils equal, round. Sclera anicteric. Conjunctiva are clear. Mucous membranes of the mouth are moist. Neck is supple. There is no elevated jugular venous pressure. No carotid bruit is heard. HEART EXAMINATION: Heart S1, S2 normal. No murmur or gallop heard. CHEST EXAMINATION: Lungs are clear to auscultation and precussion. No chest wall tenderness is noted on palpation or with deep breathing. ABDOMEN: Soft, nontender. Bowel sounds are heard. No organomegaly noted. EXTREMITIES: 2+ peripheral pulse to the right lower extremity, patient has a left [id number] amputation. NEUROLOGIC patient is awake, alert and oriented X3. . Results Cardiac Enzymes 06/18/19 Range/Units 08:04 Troponin I 0.116 H* (0.000-0.034) ng/mL Coagulation 06/18/19 Range/Units 08:04 PT 10.1 (9.0-12.0) sec Current Medications Generic Name Dose Route Start Last Admin Trade Name Shahriarq PRN Reason Stop Dose Admin Aspirin 81 mg 06/18/19 10:00 06/18/19 10:41 Aspirin PO 81 mg DAILY GRAHAM Administration Atorvastatin Calcium 40 mg 06/18/19 21:00 Lipitor PO HS GRAHAM Calcitriol 0.25 mcg 06/24/19 09:00 Rocaltrol PO Q7D GRAHAM Carvedilol 25 mg 06/18/19 09:00 06/18/19 09:45 Coreg PO 25 mg AC-BID GRAHAM Administration Cholecalciferol 5,000 unit 06/19/19 09:00 06/18/19 10:41 Vitamin D3 (25 Mcg = 1000 Iu) PO 5,000 unit DAILY GRAHAM Administration Clonidine 0.2 mg 06/18/19 09:00 06/18/19 11:45 Catapres PO 0.2 mg TID GRAHAM Administration Hydralazine HCl 100 mg 06/18/19 09:00 06/18/19 11:46 Apresoline PO 100 mg TID GRAHAM Administration Heparin Sodium/Sodium Chloride 250 mls @ 9.995 mls/hr 06/18/19 08:30 06/18/19 09:53 25,000 unit/ Sodium Chloride IV 11.31 units/kg/hr .Q24H GRAHAM 10.004 mls/hr Administration Protocol 11.3 UNITS/KG/HR Isosorbide Mononitrate 60 mg 06/18/19 09:00 06/18/19 10:41 Imdur PO 60 mg DAILY GRAHAM Administration Multivitamins 1 each 06/18/19 10:00 06/18/19 10:41 Theragran PO 1 each DAILY GRAHAM Administration Nitroglycerin 0.4 mg 06/18/19 08:15 Nitrostat SUBLINGUAL Q5M PRN Chest Pain Prazosin HCl 2 mg 06/18/19 10:00 06/18/19 10:42 Minipress PO 2 mg TID GRAHAM Administration Senna/Docusate Sodium 1 each 06/18/19 10:00 06/18/19 10:49 Senokot-S PO 1 each DAILY GRAHAM Administration Tamsulosin HCl 0.4 mg 06/18/19 18:30 Flomax PO PC-SUPPER GRAHAM Intake and Output 06/17/19 06/18/19 06/18/19 22:59 06:59 14:59 Other: Weight 88.451 kg Patient Weight 06/19/19 06:59 Weight 88.451 kg EKG Interpretations (text) EKG shows normal sinus rhythm with ST-T wave changes noted in the inferior lateral leads, similar to prior EKGs. Assessment and Plan Plan: Assessment and plan #1 hypoglycemia #2 non-VT troponin elevated related to chronic kidnet disease #3 hypertension, accelerated #4 hyperlipidemia #5 diabetes #6 chronic kidney disease #7 PVD status post left [id number] amputation #8 multivessel coronary artery disease, advised medical therapy Plan We will repeat an echocardiogram with Doppler study, resume the patient's antihypertensives and continue to monitor blood pressure. Patient has not had an acute coronary event, his troponins are consistently in this abnormal range secondary to chronic kidney disease. DNP note has been reviewed, I agree with a documented findings and plan of care. Patient was seen and examined.
[2019-06-18 16:31] VITALS: BMI 24.3
--- NOTE | 2019-06-18 16:51 | P.HPIM ---
History of Present Illness H&P Date: 06/18/19 Chief Complaint: Hypoglycemia History of presenting complaint: This is a pleasant 74-year-old patient who follows with Dr. Jack De Jesus. Chronic stable medical conditions include diabetes mellitus type 2 on insulin, causing peripheral neuropathy and diabetic retinopathy, hypertension, hyperlipidemia, chronic kidney disease stage III, CHF from diastolic dysfunction, severe peripheral arterial disease, coronary artery disease not a candidate for surgical intervention, essential hypertension. Patient in the early hours of the morning was not feeling well was bit confused. Accu-Chek at home was 11. Patient had eaten his meals yesterday as usual. Taking his scheduled dose of insulin. When the asked him how much he took patient did not remember. Patient presented to the outside facility. They did take H troponin that was mildly elevated. Has decided to send him down here. To get a cardiology opinion. Patient had no chest pain no palpitation or shortness of breath. There has been no change in his insulin dosage. Review of systems: GEN.: Tired EYES: None HEENT: Decreased vision in the left eye NECK: None RESPIRATORY: None CARDIOVASCULAR: None GASTROINTESTINAL: None GENITOURINARY: None MUSCULOSKELETAL: Occasional pain in the left leg stump LYMPHATICS: None HEMATOLOGICAL: None PSYCHIATRY: Slightly anxious NEUROLOGICAL: None Past medical history: diabetes mellitus type 2 on insulin, causing peripheral neuropathy and diabetic retinopathy, hypertension, hyperlipidemia, chronic kidney disease stage III, CHF from diastolic dysfunction, severe peripheral arterial disease, coronary artery disease not a candidate for surgical intervention, essential hypertension. 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 No alcohol or smoking history. Family history: DVT Physical examination: VITAL SIGNS: 98.9, 68, 20, 207/101, 97% on 2 L GENERAL: BMI 24.4, laying in bed, comfortable. EYES: Pupils equal. Conjunctiva normal. HEENT: External appearance of nose and ears normal, oral cavity grossly normal. NECK: JVD not raised; masses not palpable. HEART: First and second heart sounds are normal; no edema. LUNGS: Respiratory rate normal; clear to auscultation. ABDOMEN: Soft, nontender, liver spleen not palpable, no masses palpable. PSYCH: Alert and oriented x3; mood and affect normal. NEUROLOGICAL: Cranial nerves grossly intact; no facial asymmetry, power and sensation grossly intact. LYMPHATICS: No lymph nodes palpable in the axilla and neck EXTREMITY: Left hwaan-yby-gwlw amputation INVESTIGATIONS, reviewed in the clinical context: Accu-Cheks 77, 48, 114, 112 Troponin I 0.116, 0.117 Assessment: -Acute episode of hypoglycemia causing acute metabolic encephalopathy. Per patient and to oral intake has not changed. Possible patient may have taken the wrong dose of insulin. -Diabetes mellitus type 2, chronically on insulin causing peripheral neuropathy, diabetic retinopathy -Essential hypertension -Hyperlipidemia -Chronic kidney disease stage III from diabetic nephropathy and hypertensive nephrosclerosis -Chronic congestive heart failure from gastric dysfunction -Severe peripheral arterial disease -Coronary artery disease not a candidate for surgical intervention -Decreased hearing in the right ear -Troponin positive in the setting of chronic kidney disease with no cardiac symptoms Plan: -Cardiology was consulted. Doubt if patient needs any further intervention. Patient's home medications were not correct. Did get a list from patient's and spoke to nurse Snowden to correct patient's home medications. Accu-Cheks to be closely followed. With hypoglycemia protocol. Patient to be resumed on home dose of Humulin 70/30. At her baseline patient sugars runs over 150s typically. I'm assuming patient have taken the room wrong dose of his insulin. Accu-Cheks will be followed closely. I'll to getting his home medication doses blood pressure did come down. Care was discussed with the patient and . Questions were answered. Past Medical History Past Medical History: Heart Failure, Diabetes Mellitus, Deep Vein Thrombosis (DVT), Hyperlipidemia, Hypertension, Syncope Additional Past Medical History / Comment(s): - pt wants flu vaccine while here. other hx:per pt's "xray noted lung nodules". 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, L foot gr toe, 3rd &2nd toe amputated; Rfoot 3rd toe amputated, Bypass in Bilat legs, eulogio knee sx(cartilage), lt arm picc line.since removed, x3 sx total facial plastic sx and grafting done area under lt eye d/t injury, Ackerman placement.-rt upper chest Past Anesthesia/Blood Transfusion Reactions: Postoperative Nausea & Vomiting (PONV) Additional Past Anesthesia/Blood Transfusion Reaction / Comment(s): never recieved blood Past Psychological History: No Psychological Hx Reported Smoking Status: Never smoker Past Alcohol Use History: None Reported Past Drug Use History: None Reported - Past Family History Father Family Medical History: Deep Vein Thrombosis (DVT) Additional Family Medical History / Comment(s): had valve sx- a week later from complications Mother Family Medical History: Congestive Heart Failure (CHF) Additional Family Medical History / Comment(s): phlebitis Medications and Allergies Home Medications Medication Instructions Recorded Confirmed Type Calcitriol [Rocaltrol] 0.25 mcg PO Q7D 12/26/17 06/18/19 History Carvedilol [Coreg] 25 mg PO BID 04/03/18 06/18/19 History Atorvastatin [Lipitor] 40 mg PO HS #30 tab 09/17/18 06/18/19 Rx Isosorbide Mononitrate ER [Imdur] 60 mg PO DAILY #30 tab.er.24h 09/17/18 Rx cloNIDine HCL [Catapres] 0.2 mg PO TID #90 tab 09/17/18 06/18/19 Rx Tamsulosin [Flomax] 0.4 mg PO PC-SUPPER cap.er.24h 10/27/18 06/18/19 Rx Aspirin EC [Ecotrin Low Dose] 81 mg PO DAILY 06/18/19 06/18/19 History Aspirin [Adult Low Dose Aspirin EC] 81 mg PO DAILY 06/18/19 06/18/19 History Calcitriol 0.5 mcg PO DAILY 06/18/19 06/18/19 History Cholecalciferol [Vitamin D3 (25 5,000 unit PO DAILY 06/18/19 06/18/19 History Mcg = 1000 Iu)] Cholecalciferol [Vitamin D3 (25 5,000 units DAILY 06/18/19 06/18/19 History Mcg = 1000 Iu)] Insulin NPH/Reg Insulin 70/30 15 units SQ AC-SUPPER 06/18/19 06/18/19 History [humuLIN 70/30 VIAL] Insulin NPH/Reg Insulin 70/30 20 unit SQ AC-BRKFST 06/18/19 06/18/19 History [humuLIN 70/30 VIAL] Insulin Regular [HumuLIN R] 15 - 20 units SQ TID 06/18/19 06/18/19 History Multivitamin/Iron/Folic Acid 1 tab PO DAILY 06/18/19 06/18/19 History [Centrum Complete Multivit Tab] Prazosin [Minipress] 2 mg PO TID 06/18/19 06/18/19 History Prazosin [Minipress] 4 mg TID 06/18/19 06/18/19 History Sennosides-Docusate Sodium 1 tab PO DAILY 06/18/19 06/18/19 History [Senokot-S] cloNIDine HCL [Catapres] 0.2 mg PO BID 06/18/19 06/18/19 History hydrALAZINE HCL [Apresoline] 100 mg PO TID 06/18/19 06/18/19 History Allergies Allergy/AdvReac Type Severity Reaction Status Date / Time amlodipine Allergy Anaphylaxis Verified 06/18/19 08:04 lisinopril Allergy tongue Verified 06/18/19 08:04 swelling vancomycin Allergy Unknown Verified 06/18/19 08:04 Physical Exam Vitals: Vital Signs Temp Pulse Pulse Resp BP BP Pulse Ox 06/18/19 15:31 84 16 152/75 96 06/18/19 11:49 97.6 F 79 16 200/93 99 06/18/19 11:11 98.7 F 72 20 184/88 99 06/18/19 09:56 69 20 200/88 100 06/18/19 07:55 98.9 F 68 20 207/101 97 Intake and Output 06/18/19 06/18/19 06/18/19 06:59 14:59 22:59 Other: Weight 88.451 kg Results Labs: Abnormal Lab Results - Last 24 Hours (Table) 06/18/19 06/18/1906/18/19 Range/Units 08:04 09:45 10:46 POC Glucose (mg/dL) 48 L 114 H (75-99) mg/dL Troponin I 0.116 H* (0.000-0.034) ng/mL 06/18/19 06/18/19 Range/Units 11:51 14:13 POC Glucose (mg/dL) 112 H (75-99) mg/dL Troponin I 0.117 H* (0.000-0.034) ng/mL
[2019-06-18 16:53] LABS: Glucose,Whole Blood 120 mg/dL (75-99)
[2019-06-18] MEDS ORDERED: INSULN ASP PRT/INSULIN ASPART 100 UNIT/ML 10 ML VIAL SQ SCH (17:30)
[2019-06-18] MEDS: TAMSULOSIN 0.4 MG CAP.ER.24H PO SCH (17:56)
[2019-06-18] MEDS: ATORVASTATIN 40 MG TAB PO SCH (20:18)
[2019-06-18 20:56] LABS: Glucose,Whole Blood 134 mg/dL (75-99)
[2019-06-19 02:07] LABS: Glucose,Whole Blood 48 mg/dL (75-99)
[2019-06-19 02:26] LABS: Glucose,Whole Blood 77 mg/dL (75-99)
[2019-06-19 04:29] LABS: Glucose,Whole Blood 267 mg/dL (75-99)
[2019-06-19 06:43] LABS: Basophils % (A) 0 %; Eosinophils # (A) 0.4 k/uL (0-0.7); Eosinophils % (A) 4 %; HCT 41.4 % (39.0-53.0); HGB 13.5 gm/dL (13.0-17.5); Lymphocytes # (A) 0.7 k/uL (1.0-4.8); Lymphocytes % (A) 7 %; MCH 30.4 pg (25.0-35.0); MCHC 32.6 g/dL (31.0-37.0); MCV 93.4 fL (80.0-100.0); Mean Platelet Volume 9.3; Monocytes # (A) 0.4 k/uL (0-1.0); Monocytes % (A) 5 %; Neutrophils # (A) 7.4 k/uL (1.3-7.7); Neutrophils % (A) 82 %; Platelet Count 163 k/uL (150-450); RBC 4.44 m/uL (4.30-5.90); RDW 15.8 % (11.5-15.5)
[2019-06-19 06:45] LABS: Calcium 9.3 mg/dL (8.4-10.2); Potassium 4.4 mmol/L (3.5-5.1)
[2019-06-19] MEDS: CARVEDILOL 12.5 MG TAB PO SCH ×2 (07:14→16:41)
[2019-06-19 07:16] LABS: Glucose,Whole Blood 266 mg/dL (75-99)
[2019-06-19] MEDS ORDERED: INSULN ASP PRT/INSULIN ASPART 100 UNIT/ML 10 ML VIAL SQ SCH ×2 (07:30→17:30)
[2019-06-19] MEDS: PRAZOSIN 1 MG CAP PO SCH ×3 (08:31→21:49)
[2019-06-19] MEDS: SENNOSIDES-DOCUSATE SODIUM 1 EACH TAB PO SCH ×3 (08:31→11:48)
[2019-06-19] MEDS: MULTIVITAMINS, THERA 1 EACH TAB PO SCH ×3 (08:31→11:48)
[2019-06-19] MEDS: ASPIRIN 81 MG PO SCH (08:31)
[2019-06-19] MEDS: CHOLECALCIFEROL 1,000 UNIT TAB PO SCH (08:32)
[2019-06-19] MEDS: ISOSORBIDE MONONITRATE ER 60 MG TAB.ER.24H PO SCH (08:32)
[2019-06-19] MEDS: cloNIDine HCL 0.2 MG TAB PO SCH ×3 (08:32→21:48)
[2019-06-19] MEDS: hydrALAZINE HCL 50 MG TAB PO SCH ×3 (08:32→21:48)
[2019-06-19] MEDS ORDERED: ASPIRIN 325 MG TAB PO SCH (09:00)
--- NOTE | 2019-06-19 10:37 | ECHOF ---
Referral Reason:abn trop MEASUREMENTS -------- HEIGHT: 190.5 cm WEIGHT: 88.5 kg BP: 200/93 IVSd: 1.8 cm (0.6 - 1.1) LVIDd: 4.7 cm (3.9 - 5.3) LVPWd: 1.8 cm (0.6 - 1.1) IVSs: 2.1 cm LVIDs: 2.9 cm LVPWs: 1.9 cm LAESV Index (A-L): 36.51 ml/m Ao Diam: 3.8 cm (2.0 - 3.7) AV Cusp: 2.1 cm (1.5 - 2.6) LA Diam: 4.9 cm (2.7 - 3.8) MV E Angel: 0.45 m/s MV DecT: 161 ms MV A Angel: 0.89 m/s MV E/A Ratio: 0.50 FINDINGS -------- Sinus rhythm. This was a technically difficult study with suboptimal views. The left ventricular size is normal. There is severe concentric left ventricular hypertrophy. Ove rall left ventricular systolic function is normal with, an EF between 55 - 60 %. The diastolic fill ing pattern is normal for the age of the patient. The RV was not well visualized. Left atrium is moderately dilated by volume. The right atrium was not well visualized. Lumason used Interatrial and interventricular septum intact. The aortic valve was not well visualized. There is mild aortic valve sclerosis without stenosis. There is no evidence of aortic regurgitation. There is no evidence of aortic stenosis. Mild mitral annular calcification present. There is trace mitral regurgitation. The tricuspid valve was not well visualized. Trace tricuspid regurgitation present. There is no e vidence of pulmonary hypertension. Unable to estimate RVSP due to inadequate TR jet spectral dopple r profile. The pulmonic valve was not well visualized. There is no pulmonic regurgitation present. The aortic root size is normal. There is no pericardial effusion. CONCLUSIONS -------- 1. Sinus rhythm. 2. This was a technically difficult study with suboptimal views. 3. The left ventricular size is normal. 4. There is severe concentric left ventricular hypertrophy. 5. Overall left ventricular systolic function is normal with, an EF between 55 - 60 %. 6. The diastolic filling pattern is normal for the age of the patient. 7. The RV was not well visualized. 8. Left atrium is moderately dilated by volume. 9. The right atrium was not well visualized. 10. Lumason used 11. Interatrial and interventricular septum intact. 12. The aortic valve was not well visualized. 13. There is mild aortic valve sclerosis without stenosis. 14. There is no evidence of aortic regurgitation. 15. There is no evidence of aortic stenosis. 16. Mild mitral annular calcification present. 17. There is trace mitral regurgitation. 18. The tricuspid valve was not well visualized. 19. Trace tricuspid regurgitation present. 20. There is no evidence of pulmonary hypertension. 21. Unable to estimate RVSP due to inadequate TR jet spectral doppler profile. 22. The pulmonic valve was not well visualized. 23. There is no pulmonic regurgitation present. 24. The aortic root size is normal. 25. There is no pericardial effusion. OCULARIST: Damaris Alegre RDCS
[2019-06-19] MEDS ORDERED: amLODIPine 5 MG TAB PO SCH (12:00)
[2019-06-19 12:09] LABS: Glucose,Whole Blood 165 mg/dL (75-99)
--- NOTE | 2019-06-19 15:40 | P.PN ---
Subjective Progress Note Date: 06/19/19 This is a pleasant 74-year-old gentleman with past medical history significant for multivessel coronary artery disease, hypertension, chronic kidney disease, hyperlipidemia, diabetes, peripheral vascular disease, patient underwent left xelrz-uec-achh amputation. He follows regularly with Dr. See in the office. He did have a cardiac catheterization performed in 2017 which revealed 20-30% LAD stenosis proximally as well as a 70-80% in the midsegment, circumflex with 70-80% noted 90% in the OM and second OM as well as an 80% stenosis in the mid RCA, patient is not a candidate for surgical intervention and is currently on medical therapy. Patient also has known renal insufficiency with creatinine that runs in the range of 1.8-2.1. Patient was brought to [facility], after being found by his in bed to be extremely diaphoretic, he was also noted to have mental status changes. They checked his blood sugars at that time which came back to be 11. For this reason he was brought to [facility] emergency room. Troponins were drawn in the emergency room which came back to be abnormal and for that reason the patient was transferred here for further evaluation and treatment. EKG performed at [facility] showed a normal sinus rhythm with ST-T wave changes noted in the inferior lateral leads, similar to prior EKGs. Laboratory data from [facility] sodium 145, potassium 3.2, chloride 109, CO2 25, BUN 42, creatinine 2.6, AST and ALT are normal troponin 0.096. Upon review of patient's prior admissions to the hospital, his troponin is consistently in this abnormal range, likely secondary to persistent abnormal renal function. Patient denies having any chest discomfort and is breathing overall has been stable. At the time of my examination, patient is alert and oriented, his is at bedside. His blood pressure on arrival here 207/100, currently 200/90 patient did not receive any of his antihypertensive medications. The following medications have been resumed, patient is on aspirin 81 mg daily, Lipitor 40 mg daily, Coreg 25 mg one tablet by mouth twice a day, clonidine 0.2 mg 3 times a day, hydralazine 100 mg 3 times a day, Imdur 60 mg daily, 06/19/2019 Patient was seen and examined this morning, alert and oriented 3, overall feeling much better. Blood pressure 138/70 with a heart rate in the 80s on current medications. Echocardiogram with Doppler study revealed an ejection fraction of 55-60%. Objective - Vital Signs Vital signs: Vital Signs Temp 98.9 F 06/19/19 08:00 Pulse 84 06/19/19 12:02 Resp 16 06/19/19 12:02 BP 139/74 06/19/19 12:02 Pulse Ox 97 06/19/19 12:02 Intake & Output 06/18/19 06/19/19 06/19/19 18:59 06:59 18:59 Intake Total 680 900 240 Output Total 500 300 Balance 680 400 -60 Weight 88.451 kg 103.9 kg Intake: Intake, IV Titration 80 Amount Heparin Sod,Pork in 0.45% 80 NaCl 25,000 unit In 0.45 % NaCl 1 250ml.bag @ 11.3 UNITS/KG/HR 9.995 mls/hr IV .Q24H [facility] Rx#: [id number] Oral 600 900 240 Output: Urine 500 300 Other: Voiding Method Urinal Urinal - Exam PHYSICAL EXAMINATION: GENERAL: 74-year-old gentleman in no acute distress at the time of my examination HEENT: Head is atraumatic, normocephalic. Pupils equal, round. Sclera anicteric. Conjunctiva are clear. Mucous membranes of the mouth are moist. Neck is supple. There is no elevated jugular venous pressure. No carotid bruit is heard. HEART EXAMINATION: Heart S1, S2 normal. No murmur or gallop heard. CHEST EXAMINATION: Lungs are clear to auscultation and precussion. No chest wall tenderness is noted on palpation or with deep breathing. ABDOMEN: Soft, nontender. Bowel sounds are heard. No organomegaly noted. EXTREMITIES: 2+ peripheral pulse to the right lower extremity, patient has a left exqlp-hwi-mwls amputation. NEUROLOGIC patient is awake, alert and oriented X3. - Labs CBC & Chem 7: 06/19/19 06:11 06/19/19 06:11 Labs: Abnormal Lab Results - Last 24 Hours (Table) 06/18/19 06/18/19 06/18/19 Range/Units 14:13 16:51 20:54 RDW (11.5-15.5) % Lymphocytes # (1.0-4.8) k/uL Sodium (137-145) mmol/L Carbon Dioxide (22-30) mmol/L BUN (9-20) mg/dL Creatinine (0.66-1.25) mg/dL Glucose (74-99) mg/dL POC Glucose (mg/dL) 120 H 134 H (75-99) mg/dL Troponin I 0.117 H* (0.000-0.034) ng/mL Triglycerides (<150) mg/dL HDL Cholesterol (40-60) mg/dL 06/19/19 06/19/19 06/19/19 Range/Units 02:01 04:28 06:11 RDW (11.5-15.5) % Lymphocytes # (1.0-4.8) k/uL Sodium 136 L (137-145) mmol/L Carbon Dioxide 20 L (22-30) mmol/L BUN 43 H (9-20) mg/dL Creatinine 2.24 H (0.66-1.25) mg/dL Glucose 258 H (74-99) mg/dL POC Glucose (mg/dL) 48 L 267 H (75-99) mg/dL Troponin I (0.000-0.034) ng/mL Triglycerides 271 H (<150) mg/dL HDL Cholesterol 33 L (40-60) mg/dL 06/19/19 06/19/19 06/19/19 Range/Units 06:11 07:15 12:00 RDW 15.8 H (11.5-15.5) % Lymphocytes # 0.7 L (1.0-4.8) k/uL Sodium (137-145) mmol/L Carbon Dioxide (22-30) mmol/L BUN (9-20) mg/dL Creatinine (0.66-1.25) mg/dL Glucose (74-99) mg/dL POC Glucose (mg/dL) 266 H 165 H (75-99) mg/dL Troponin I (0.000-0.034) ng/mL Triglycerides (<150) mg/dL HDL Cholesterol (40-60) mg/dL Assessment and Plan Plan: Assessment and plan #1 hypoglycemia #2 non-MN troponin elevated related to chronic kidnet disease #3 hypertension, accelerated #4 hyperlipidemia #5 diabetes #6 chronic kidney disease #7 PVD status post left iuvdr-lmb-[id number] amputation #8 multivessel coronary artery disease, advised medical therapy Plan From cardiology's perspective, we'll recommend to continue this patient on his current medications. He may be able to be discharged home once cleared by annamarie redman, we'll make a follow-up appointment in the office post discharge. DNP note has been reviewed, I agree with a documented findings and plan of care. Patient was seen and examined.
[2019-06-19] MEDS ORDERED: PRAZOSIN 1 MG CAP PO SCH (16:00)
[2019-06-19] MEDS: TAMSULOSIN 0.4 MG CAP.ER.24H PO SCH (16:42)
[2019-06-19 16:56] LABS: Glucose,Whole Blood 144 mg/dL (75-99)
[2019-06-19 20:54] LABS: Glucose,Whole Blood 177 mg/dL (75-99)
[2019-06-19] MEDS: ATORVASTATIN 40 MG TAB PO SCH (21:48)
--- NOTE | 2019-06-19 23:16 | P.PN ---
Progress Note - Text Progress Note Date: 06/19/19 Chief Complaint: Hypoglycemia Interval history: This is a pleasant 74-year-old patient who follows with Dr. Jack De Jesus. Chronic stable medical conditions include diabetes mellitus type 2 on insulin, causing peripheral neuropathy and diabetic retinopathy, hypertension, hyperlipidemia, chronic kidney disease stage III, CHF from diastolic dysfunction, severe peripheral arterial disease, coronary artery disease not a candidate for surgical intervention, essential hypertension. Patient in the early hours of the morning was not feeling well was bit confused. Accu-Chek at home was 11. Patient had eaten his meals yesterday as usual. Taking his scheduled dose of insulin. When the asked him how much he took patient did not remember. Patient presented to the outside facility. They did take H troponin that was mildly elevated. Has decided to send him down here. To get a cardiology opinion. Patient had no chest pain no palpitation or shortness of breath. There has been no change in his insulin dosage. Today-early hours of this morning patient dropped his sugars again to about 45. Had to be given food to bring it up. Patient had received NovoLog 70/30 with 15 units last night. Patient ate well this morning. Review of systems: Was done for constitutional, cardiovascular, GI, pulmonary. relevant finding as above Active Medications Aspirin (Aspirin) 81 mg PO DAILY [facility] Last Admin: 06/19/19 08:31 Dose: 81 mg Documented by: Atorvastatin Calcium (Lipitor) 40 mg PO HS [facility] Last Admin: 06/19/19 21:48 Dose: 40 mg Documented by: Calcitriol (Rocaltrol) 0.25 mcg PO Q7D [facility] Carvedilol (Coreg) 25 mg PO AC-BID [facility] Last Admin: 06/19/19 16:41 Dose: 25 mg Documented by: Cholecalciferol (Vitamin D3 (25 Mcg = 1000 Iu)) 5,000 unit PO DAILY [facility] Last Admin: 06/19/19 08:32 Dose: 5,000 unit Documented by: Clonidine (Catapres) 0.2 mg PO TID [facility] Last Admin: 06/19/19 21:48 Dose: 0.2 mg Documented by: Hydralazine HCl (Apresoline) 100 mg PO TID [facility] Last Admin: 06/19/19 21:48 Dose: 100 mg Documented by: Insulin Aspart (Novolog Mix 70-30 Vial) 10 unit SQ AC-SUPPER [facility] Last Admin: 07/30/19 17:51 Dose: 10 unit Documented by: Insulin Aspart (Novolog Mix 70-30 Vial) 15 unit SQ AC-BRKFST [facility] Insulin Aspart (Novolog Mix 70-30 Vial) 5 unit SQ AC-LUNCH [facility] Isosorbide Mononitrate (Imdur) 60 mg PO DAILY [facility] Last Admin: 06/19/19 08:32 Dose: 60 mg Documented by: Multivitamins (Theragran) 1 each PO DAILY [facility] Last Admin: 06/19/19 11:48 Dose: Not Given Documented by: Nitroglycerin (Nitrostat) 0.4 mg SUBLINGUAL Q5M PRN PRN Reason: Chest Pain Prazosin HCl (Minipress) 2 mg PO TID [facility] Last Admin: 06/19/19 21:49 Dose: 2 mg Documented by: Senna/Docusate Sodium (Senokot-S) 1 each PO DAILY [facility] Last Admin: 06/19/19 11:48 Dose: Not Given Documented by: Sodium Chloride (Saline Flush) 10 ml IV BID [facility] Last Admin: 06/19/19 21:48 Dose: 10 ml Documented by: Tamsulosin HCl (Flomax) 0.4 mg PO PC-SUPPER [facility] Last Admin: 06/19/19 16:42 Dose: 0.4 mg Documented by: Physical examination: VITAL SIGNS: 98.3, 72, 16, 130/77, 97% room air GENERAL: Laying in bed, awake. EYES: Pupils equal. Conjunctiva normal. HEENT: External appearance of nose and ears normal, oral cavity grossly normal. NECK: JVD not raised; masses not palpable. HEART: First and second heart sounds are normal; no edema. LUNGS: Respiratory rate normal; clear to auscultation. ABDOMEN: Soft, nontender, liver spleen not palpable, no masses palpable. PSYCH: Alert and oriented x3; mood and affect normal. EXTREMITY: Left lgrfm-qui-ejjx amputation INVESTIGATIONS, reviewed in the clinical context: Eucd-Ekedz-31, 77, 267 Troponin I 0.116, 0.117 Assessment: -Acute episode of hypoglycemia causing acute metabolic encephalopathy. Had a repeat hypoglycemic episode early hours of this morning. -Diabetes mellitus type 2, chronically on insulin causing peripheral neuropathy, diabetic retinopathy -Essential hypertension -Hyperlipidemia -Chronic kidney disease stage III from diabetic nephropathy and hypertensive nephrosclerosis -Chronic congestive heart failure from gastric dysfunction -Severe peripheral arterial disease -Coronary artery disease not a candidate for surgical intervention -Decreased hearing in the right ear -Troponin positive in the setting of chronic kidney disease with no cardiac symptoms Plan: Patient was given 15 units of the NovoLog Mix 70/30 this morning. I did decrea se the evening dose to 10 units. We'll also add 5 units with lunch starting tomorrow. Patient discharged therefore held for same reason to make sure sugars are doing better. This was discussed with the patient.
[2019-06-20 02:45] LABS: Glucose,Whole Blood 109 mg/dL (75-99)
[2019-06-20] MEDS: CARVEDILOL 12.5 MG TAB PO SCH (07:02)
[2019-06-20 07:11] LABS: Glucose,Whole Blood 103 mg/dL (75-99)
[2019-06-20] MEDS ORDERED: INSULN ASP PRT/INSULIN ASPART 100 UNIT/ML 10 ML VIAL SQ SCH ×2 (07:30→12:30)
[2019-06-20] MEDS: PRAZOSIN 1 MG CAP PO SCH (08:46)
[2019-06-20] MEDS: MULTIVITAMINS, THERA 1 EACH TAB PO SCH (08:46)
[2019-06-20] MEDS: ISOSORBIDE MONONITRATE ER 60 MG TAB.ER.24H PO SCH (08:46)
[2019-06-20] MEDS: hydrALAZINE HCL 50 MG TAB PO SCH (08:47)
[2019-06-20] MEDS: SENNOSIDES-DOCUSATE SODIUM 1 EACH TAB PO SCH (08:47)
[2019-06-20] MEDS: ASPIRIN 81 MG PO SCH (08:47)
[2019-06-20] MEDS: CHOLECALCIFEROL 1,000 UNIT TAB PO SCH (08:47)
[2019-06-20] MEDS: cloNIDine HCL 0.2 MG TAB PO SCH (08:47)
[2019-06-20 08:55] VITALS: RESP 20
--- NOTE | 2019-06-20 11:55 | P.PN ---
Subjective Progress Note Date: 06/20/19 This is a pleasant 74-year-old gentleman with past medical history significant for multivessel coronary artery disease, hypertension, chronic kidney disease, hyperlipidemia, diabetes, peripheral vascular disease, patient underwent left ugkol-noz-away amputation. He follows regularly with Dr. See in the office. He did have a cardiac catheterization performed in 2017 which revealed 20-30% LAD stenosis proximally as well as a 70-80% in the midsegment, circumflex with 70-80% noted 90% in the OM and second OM as well as an 80% stenosis in the mid RCA, patient is not a candidate for surgical intervention and is currently on medical therapy. Patient also has known renal insufficiency with creatinine that runs in the range of 1.8-2.1. Patient was brought to [facility], after being found by his in bed to be extremely diaphoretic, he was also noted to have mental status changes. They checked his blood sugars at that time which came back to be 11. For this reason he was brought to [facility] emergency room. Troponins were drawn in the emergency room which came back to be abnormal and for that reason the patient was transferred here for further evaluation and treatment. EKG performed at [facility] showed a normal sinus rhythm with ST-T wave changes noted in the inferior lateral leads, similar to prior EKGs. Laboratory data from [facility] sodium 145, potassium 3.2, chloride 109, CO2 25, BUN 42, creatinine 2.6, AST and ALT are normal troponin 0.096. Upon review of patient's prior admissions to the hospital, his troponin is consistently in this abnormal range, likely secondary to persistent abnormal renal function. Patient denies having any chest discomfort and is breathing overall has been stable. At the time of my examination, patient is alert and oriented, his is at bedside. His blood pressure on arrival here 207/100, currently 200/90 patient did not receive any of his antihypertensive medications. The following medications have been resumed, patient is on aspirin 81 mg daily, Lipitor 40 mg daily, Coreg 25 mg one tablet by mouth twice a day, clonidine 0.2 mg 3 times a day, hydralazine 100 mg 3 times a day, Imdur 60 mg daily, 06/19/2019 Patient was seen and examined this morning, alert and oriented 3, overall feeling much better. Blood pressure 138/70 with a heart rate in the 80s on current medications. Echocardiogram with Doppler study revealed an ejection fraction of 55-60%. 06/20/2019 Patient was seen and examined this morning, hemodynamically stable. Blood pressure 150/90 today. Anticipating discharge home. Objective - Vital Signs Vital signs: Vital Signs Temp 98.4 F 06/20/19 07:45 Pulse 74 06/20/19 07:45 Resp 20 06/20/19 07:45 BP 164/83 06/20/19 07:45 Pulse Ox 98 06/20/19 07:45 Intake & Output 06/19/19 06/20/19 06/20/19 18:59 06:59 18:59 Intake Total 720 240 Output Total 300 1050 1175 Balance 420 1050 935 Weight 104 kg Intake: Oral 720 240 Output: Urine 300 1050 1175 Other: Voiding Method Urinal Urinal # Bowel Movements 1 - Exam PHYSICAL EXAMINATION: GENERAL: 74-year-old gentleman in no acute distress at the time of my examination HEENT: Head is atraumatic, normocephalic. Pupils equal, round. Sclera anicteric. Conjunctiva are clear. Mucous membranes of the mouth are moist. Neck is supple. There is no elevated jugular venous pressure. No carotid bruit is heard. HEART EXAMINATION: Heart S1, S2 normal. No murmur or gallop heard. CHEST EXAMINATION: Lungs are clear to auscultation and precussion. No chest wall tenderness is noted on palpation or with deep breathing. ABDOMEN: Soft, nontender. Bowel sounds are heard. No organomegaly noted. EXTREMITIES: 2+ peripheral pulse to the right lower extremity, patient has a left nawqr-eiz-ntak amputation. NEUROLOGIC patient is awake, alert and oriented X3. - Labs CBC & Chem 7: 06/19/19 06:11 06/19/19 06:11 Labs: Abnormal Lab Results - Last 24 Hours (Table) 06/19/19 06/19/19 06/19/19 Range/Units 12:00 16:49 20:53 POC Glucose (mg/dL) 165 H 144 H 177 H (75-99) mg/dL 06/20/19 06/20/19 Range/Units 02:43 07:00 POC Glucose (mg/dL) 109 H 103 H (75-99) mg/dL Assessment and Plan Plan: Assessment and plan #1 hypoglycemia #2 non-[place] troponin elevated related to chronic kidnet disease #3 hypertension, accelerated #4 hyperlipidemia #5 diabetes #6 chronic kidney disease #7 PVD status post left huahh-vgu-aljc amputation #8 multivessel coronary artery disease, advised medical therapy Plan From cardiology's perspective, we'll recommend to continue this patient on his current medications. He may be able to be discharged home once cleared by primary, we'll make a follow-up appointment in the office post discharge. DNP note has been reviewed, I agree with a documented findings and plan of care. Patient was seen and examined.
[2019-06-20 12:14] LABS: Glucose,Whole Blood 155 mg/dL (75-99)
[2019-06-20 13:38] VITALS: BP 156/84; PULSE 70; TEMP 98
--- NOTE | 2019-06-20 20:52 | P.DS ---
Providers Date of admission: 06/18/19 08:32 Expected date of discharge: 06/20/19 Attending physician: Rk Crockett Consults: 06/18/19 08:15 Consult Physician Urgent Consulting Provider: Isa Astudillo Consult Reason/Comments: elevated troponin Do you want consulting provider notified?: Yes Primary care physician: Jack De Jesus [facility] Course: Hospital course: This is a pleasant 74-year-old patient who follows with Dr. Jack De Jesus. Chronic stable medical conditions include diabetes mellitus type 2 on insulin, causing peripheral neuropathy and diabetic retinopathy, hypertension, hyperlipidemia, chronic kidney disease stage III, CHF from diastolic dysfunction, severe peripheral arterial disease, coronary artery disease not a candidate for surgical intervention, essential hypertension. Patient in the early hours of the morning was not feeling well was bit confused. Accu-Chek at home was 11. Patient had eaten his meals yesterday as usual. Taking his scheduled dose of insulin. When the asked him how much he took patient did not remember. Patient presented to the outside facility. They did take H troponin that was mildly elevated. Has decided to send him down here. To get a cardiology opinion. Patient had no chest pain no palpitation or shortness of breath. There has been no change in his insulin dosage. Patient does of insulin was adjusted. P.m. dose was cut back and a small dose was admitted with before noon meal. Sugars are doing much better without discharge. Patient's troponin were felt to be because of renal function. Did not have coronary symptoms care was discussed with the patient and . Consultation: Dr. Malou Murillo from cardiology. Physical examination: VITAL SIGNS: 98.4, 74, 20, 164 x 6 83, 98% room air GENERAL: Sitting up in bed, comfortable, awake. EYES: Pupils equal. Conjunctiva normal. HEENT: External appearance of nose and ears normal, oral cavity grossly normal. NECK: JVD not raised; masses not palpable. HEART: First and second heart sounds are normal; no edema. LUNGS: Respiratory rate normal; clear to auscultation. ABDOMEN: Soft, nontender, liver spleen not palpable, no masses palpable. PSYCH: Alert and oriented x3; mood and affect normal. EXTREMITY: Left optnl-sbp-cqqv amputation INVESTIGATIONS, reviewed in the clinical context: Accu-Cheks 103, 155 Troponin I 0.116, 0.117 Discharge diagnosis: -Recurrent acute episode of hypoglycemia causing acute metabolic encephalopathy. 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 -Severe peripheral arterial disease -Coronary artery disease not a candidate for surgical intervention -Decreased hearing in the right ear -Troponin positive in the setting of chronic kidney disease with no cardiac symptoms Disposition: Home Patient Condition at Discharge: Stable Plan - Discharge Summary New Discharge Prescriptions: New Insuln Asp Prt/Insulin Aspart [NovoLOG MIX 70-30 VIAL] 5 unit SQ AC-LUNCH vial Continue Calcitriol [Rocaltrol] 0.25 mcg PO Q7D Carvedilol [Coreg] 25 mg PO BID Atorvastatin [Lipitor] 40 mg PO HS #30 tab cloNIDine HCL [Catapres] 0.2 mg PO TID #90 tab Isosorbide Mononitrate ER [Imdur] 60 mg PO DAILY #30 tab.er.24h Tamsulosin [Flomax] 0.4 mg PO PC-SUPPER cap.er.24h Sennosides-Docusate Sodium [Senokot-S] 1 tab PO DAILY Cholecalciferol [Vitamin D3 (25 Mcg = 1000 Iu)] 5,000 unit PO DAILY Prazosin [Minipress] 2 mg PO TID hydrALAZINE HCL [Apresoline] 100 mg PO TID Multivitamin/Iron/Folic Acid [Centrum Complete Multivit Tab] 1 tab PO DAILY Calcitriol 0.5 mcg PO DAILY Cholecalciferol [Vitamin D3 (25 Mcg = 1000 Iu)] 5,000 units DAILY Aspirin EC [Ecotrin Low Dose] 81 mg PO DAILY Changed Insulin NPH/Reg Insulin 70/30 [humuLIN 70/30 VIAL] 15 unit SQ AC-BRKFST #0 Insulin NPH/Reg Insulin 70/30 [humuLIN 70/30 VIAL] 10 units SQ AC-SUPPER #0 Discontinued Insulin Regular [HumuLIN R] 15 - 20 units SQ TID Aspirin [Adult Low Dose Aspirin EC] 81 mg PO DAILY cloNIDine HCL [Catapres] 0.2 mg PO BID Prazosin [Minipress] 4 mg TID Discharge Medication List Calcitriol [Rocaltrol] 0.25 mcg PO Q7D 12/26/17 [History] Carvedilol [Coreg] 25 mg PO BID 04/03/18 [History] Atorvastatin [Lipitor] 40 mg PO HS #30 tab 09/17/18 [Rx] Isosorbide Mononitrate ER [Imdur] 60 mg PO DAILY #30 tab.er.24h 09/17/18 [Rx] cloNIDine HCL [Catapres] 0.2 mg PO TID #90 tab 09/17/18 [Rx] Tamsulosin [Flomax] 0.4 mg PO PC-SUPPER cap.er.24h 10/27/18 [Rx] Aspirin EC [Ecotrin Low Dose] 81 mg PO DAILY 06/18/19 [History] Calcitriol 0.5 mcg PO DAILY 06/18/19 [History] Cholecalciferol [Vitamin D3 (25 Mcg = 1000 Iu)] 5,000 unit PO DAILY 06/18/19 [History] Cholecalciferol [Vitamin D3 (25 Mcg = 1000 Iu)] 5,000 units DAILY 06/18/19 [History] Multivitamin/Iron/Folic Acid [Centrum Complete Multivit Tab] 1 tab PO DAILY 06/18/19 [History] Prazosin [Minipress] 2 mg PO TID 06/18/19 [History] Sennosides-Docusate Sodium [Senokot-S] 1 tab PO DAILY 06/18/19 [History] hydrALAZINE HCL [Apresoline] 100 mg PO TID 06/18/19 [History] Insulin NPH/Reg Insulin 70/30 [humuLIN 70/30 VIAL] 10 units SQ AC-SUPPER #0 06/20/19 [Rx] Insulin NPH/Reg Insulin 70/30 [humuLIN 70/30 VIAL] 15 unit SQ AC-BRKFST #0 06/20/19 [Rx] Insuln Asp Prt/Insulin Aspart [NovoLOG MIX 70-30 VIAL] 5 unit SQ AC-LUNCH vial 06/20/19 [Rx] Follow up Appointment(s)/Referral(s): Jack De Jesus MD [Primary Care Provider] - 06/21/19 1:30 pm Bethel Murillo MD [STAFF PHYSICIAN] - 07/06/19 2:30 pm (In [facility]. ) Patient Instructions/Handouts: Chronic Kidney Disease Diet (DC), Hypoglycemia in a Person with Diabetes (DC) Discharge Disposition: HOME SELF-CARE
[2019-06-24] MEDS ORDERED: CALCITRIOL 0.25 MCG CAP PO SCH (09:00)
== END 2019-06-20 14:22 | disposition home or self-care (01) ==
LOC: EC 07:52 → 3SCARD 08:32
PROVIDERS: ADMIT Hospitalist; ATTEND Hospitalist
DX: E11.649 Type 2 diabetes mellitus with hypoglycemia without coma (principal); R77.8 Other specified abnormalities of plasma proteins; G93.41 Metabolic encephalopathy; E11.42 Type 2 diabetes mellitus with diabetic polyneuropathy; I13.0 Hypertensive heart and chronic kidney disease with heart failure and stage 1 through stage 4 chronic kidney disease, or unspecified chronic kidney disease; N18.3 Chronic kidney disease, stage 3 (moderate); I50.32 Chronic diastolic (congestive) heart failure; E11.22 Type 2 diabetes mellitus with diabetic chronic kidney disease; E11.21 Type 2 diabetes mellitus with diabetic nephropathy; E11.319 Type 2 diabetes mellitus with unspecified diabetic retinopathy without macular edema; H91.91 Unspecified hearing loss, right ear; E78.5 Hyperlipidemia, unspecified; I25.10 Atherosclerotic heart disease of native coronary artery without angina pectoris; Z79.82 Long term (current) use of aspirin; Z79.4 Long term (current) use of insulin; Z79.899 Other long term (current) drug therapy; Z88.1 Allergy status to other antibiotic agents; Z88.8 Allergy status to other drugs, medicaments and biological substances; Z89.612 Acquired absence of left leg above knee; Z86.718 Personal history of other venous thrombosis and embolism; Z89.412 Acquired absence of left great toe; Z89.422 Acquired absence of other left toe(s); Z89.421 Acquired absence of other right toe(s); Z16.21 Resistance to vancomycin; Z86.14 Personal history of Methicillin resistant Staphylococcus aureus infection; Z98.41 Cataract extraction status, right eye; Z82.49 Family history of ischemic heart disease and other diseases of the circulatory system; Z83.2 Family history of diseases of the blood and blood-forming organs and certain disorders involving the immune mechanism
CPT/HCPCS: 96366 ×3; 96365; 96375; 99285; 36415; 93005; 80061; 80048; 84484; 85025; 85610; 85730; G0378 ×3; C8929; J0360; Q9950; J1644; 93306

== ENCOUNTER 2019-09-05 13:31 | Inpatient (IN) | payer MEDICARE ==
[2019-09-05] MEDS ORDERED: SODIUM CHLORIDE 0.9% 1,000 ML IV STA (13:38)
[2019-09-05 13:59] LABS: Glucose,Whole Blood 194 mg/dL (75-99)
[2019-09-05 14:19] LABS: Basophils % (A) 0 %; Eosinophils # (A) 0.3 k/uL (0-0.7); Eosinophils % (A) 4 %; HCT 39.8 % (39.0-53.0); HGB 12.9 gm/dL (13.0-17.5); Lymphocytes # (A) 0.5 k/uL (1.0-4.8); Lymphocytes % (A) 5 %; MCH 29.8 pg (25.0-35.0); MCHC 32.4 g/dL (31.0-37.0); MCV 92.1 fL (80.0-100.0); Mean Platelet Volume 8.2; Monocytes # (A) 0.4 k/uL (0-1.0); Monocytes % (A) 5 %; Neutrophils # (A) 7.2 k/uL (1.3-7.7); Neutrophils % (A) 84 %; Platelet Count 135 k/uL (150-450); RBC 4.32 m/uL (4.30-5.90); RDW 13.8 % (11.5-15.5); WBC 8.6 k/uL (3.8-10.6)
[2019-09-05 14:28] LABS: Albumin 3.6 g/dL (3.5-5.0); Potassium 4.5 mmol/L (3.5-5.1); Total Bilirubin 0.6 mg/dL (0.2-1.3); Total Protein 6.3 g/dL (6.3-8.2)
--- NOTE | 2019-09-05 14:34 | XR ---
EXAMINATION TYPE: XR chest 2V DATE OF EXAM: 09/05/2019 COMPARISON: Prior chest 06/15/2018 HISTORY: Syncope and difficulty breathing TECHNIQUE: Frontal and lateral views of the chest are obtained. FINDINGS: Lung volumes are low. Patient is rotated. There are overlying cardiac leads. There is no f ocal air space opacity, pleural effusion, or pneumothorax seen. The cardiac silhouette size is stabl e. The osseous structures are intact, there is multilevel thoracic spondylosis. Patient's right jug ular central venous catheter has been removed in the interval. IMPRESSION: No acute cardiopulmonary process.
[2019-09-05 14:38] LABS: Partial Thromboplastin Time 26.6 sec (22.0-30.0); Prothrombin Time 10.3 sec (9.0-12.0)
--- NOTE | 2019-09-05 15:08 | ED ---
Dizziness HPI - General Chief Complaint: Syncope Stated Complaint: Syncope Time Seen by Provider: 09/05/19 13:31 Source: patient, EMS, RN notes reviewed Mode of arrival: EMS Limitations: physical limitation - History of Present Illness Initial Comments: This is a 74-year-old male who was brought in by EMS because of a syncopal episode. Patient apparently was walking using his leg prosthesis and suddenly became very short of breath. He apparently was unresponsive for about 30-60 seconds. He had nausea. He was initially found have a pulse ox of 93% room air per paramedics. He currently is awake alert oriented 3 any palpitations or chest pain is still very probably short of breath while he was walking. He has have a left jkyjf-zul-tvay amputation. He does have a history of sick left with a past [place] hypertension diabetes and elevated cholesterol. No recent fevers chills or other symptomatology. No other modifying factors MD Complaint: other - Related Data Home Medications Medication Instructions Recorded Confirmed Carvedilol [Coreg] 25 mg PO BID 04/03/18 09/05/19 Aspirin EC [Ecotrin Low Dose] 81 mg PO DAILY@1200 06/18/19 09/05/19 Calcitriol 0.5 mcg PO MOWEFR 06/18/19 09/05/19 Cholecalciferol [Vitamin D3 (25 5,000 units PO DAILY@1200 06/18/19 09/05/19 Mcg = 1000 Iu)] Multivitamin/Iron/Folic Acid 1 tab PO DAILY@1200 06/18/19 09/05/19 [Centrum Complete Multivit Tab] Sennosides-Docusate Sodium 1 tab PO DAILY 06/18/19 09/05/19 [Senokot-S] hydrALAZINE HCL [Apresoline] 100 mg PO TID 06/18/19 09/05/19 Insulin NPH/Reg Insulin 70/30 10 - 15 units SQ TID 09/05/19 09/05/19 [humuLIN 70/30 VIAL] Prazosin HCl 2 mg PO TID 09/05/19 09/05/19 Previous Rx's Medication Instructions Recorded Atorvastatin [Lipitor] 40 mg PO HS #30 tab 09/17/18 Isosorbide Mononitrate ER [Imdur] 60 mg PO DAILY #30 tab.er.24h 09/17/18 cloNIDine HCL [Catapres] 0.2 mg PO TID #90 tab 09/17/18 Tamsulosin [Flomax] 0.4 mg PO PC-SUPPER cap.er.24h 10/27/18 Allergies Allergy/AdvReac Type Severity Reaction Status Date / Time amlodipine Allergy Anaphylaxis Verified 09/05/19 14:10 lisinopril Allergy tongue Verified 09/05/19 14:10 swelling vancomycin Allergy Unknown Verified 09/05/19 14:10 Review of Systems ROS Statement: Those systems with pertinent positive or pertinent negative responses have been documented in the HPI. ROS Other: All systems not noted in ROS Statement are negative. Past Medical History Past Medical History: Heart Failure, Diabetes Mellitus, Deep Vein Thrombosis (DVT), Hyperlipidemia, Hypertension, Syncope Additional Past Medical History / Comment(s): pt wants flu vaccine while here. other hx:per pt's "xray noted lung nodules". 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, L foot gr toe, 3rd &2nd toe amputated; Rfoot 3rd toe amputated, Bypass in Bilat legs, eulogio knee sx(cartilage), lt arm picc line.since removed, x3 sx total facial plastic sx and grafting done area under lt eye d/t injury, Ackerman placement.-rt upper chest Past Anesthesia/Blood Transfusion Reactions: Postoperative Nausea & Vomiting (PONV) Additional Past Anesthesia/Blood Transfusion Reaction / Comment(s): never recieved blood Past Psychological History: No Psychological Hx Reported Smoking Status: Never smoker Past Alcohol Use History: None Reported Past Drug Use History: None Reported - Past Family History Father Family Medical History: Deep Vein Thrombosis (DVT) Additional Family Medical History / Comment(s): had valve sx- a week later from complications Mother Family Medical History: Congestive Heart Failure (CHF) Additional Family Medical History / Comment(s): phlebitis General Exam - General Exam Comments Initial Comments: This is a well-developed well-nourished awake alert oriented 3 male Limitations: physical limitation General appearance: alert, in no apparent distress Head exam: Present: atraumatic, normocephalic, normal inspection Eye exam: Present: normal appearance, PERRL, EOMI. Absent: scleral icterus, conjunctival injection, periorbital swelling ENT exam: Present: normal exam, mucous membranes moist Neck exam: Present: normal inspection. Absent: tenderness, meningismus, lymphadenopathy Respiratory exam: Present: normal lung sounds bilaterally. Absent: respiratory distress, wheezes, rales, rhonchi, stridor Cardiovascular Exam: Present: regular rate, normal rhythm, normal heart sounds. Absent: systolic murmur, diastolic murmur, rubs, gallop, clicks GI/Abdominal exam: Present: soft, normal bowel sounds. Absent: distended, tenderness, guarding, rebound, rigid Extremities exam: Present: full ROM, normal capillary refill, other (Lmefj-tam-kowv amputation). Absent: tenderness, pedal edema, joint swelling, calf tenderness Back exam: Present: normal inspection Neurological exam: Present: alert, oriented X3, CN II-XII intact Psychiatric exam: Present: normal affect, normal mood Skin exam: Present: warm, dry, intact, normal color. Absent: rash Course Vital Signs 09/05/19 13:35 Temperature 98.1 F Pulse Rate 76 Respiratory 18 Rate Blood Pressure 153/94 O2 Sat by Pulse 95 Oximetry EKG Findings - EKG Comments: EKG Findings:: EKG shows a sinus rhythm a 75 appear interval 200 QRS 112 QT/QTC 470/524. Left exodeviation. ST T-wave abnormality seen. Anteriorly - EKG Results: EKG: interpreted by AYLA, sinus rhythm (Sinus rhythm left exodeviation ST configuration is abnormal in the inferior and anterolateral leads patient does have a ventricular rate is 75. IN Interval 200 QRS duration) Medical Decision Making - Medical Decision Making I did discuss findings with patient family members. Patient does have elevated d-dimer as well as elevated troponin addition to evidence of renal insufficiency. The renal insufficiency is chronic and did discuss the case also with Dr. Crockett due to the renal function the patient be placed on Lovenox admitted and get a VQ scan. He denies any chest pain or other symptoms other what was initially presented. - Lab Data Result diagrams: 09/05/19 13:55 09/05/19 13:55 Lab Results 09/05/19 09/05/19 09/05/19 Range/Units 13:54 13:55 13:55 WBC 8.6 (3.8-10.6) k/uL RBC 4.32 (4.30-5.90) m/uL Hgb 12.9 L (13.0-17.5) gm/dL Hct 39.8 (39.0-53.0) % MCV 92.1 (80.0-100.0) fL MCH 29.8 (25.0-35.0) pg MCHC 32.4 (31.0-37.0) g/dL RDW 13.8 (11.5-15.5) % Plt Count 135 L (150-450) k/uL Neutrophils % 84 % Lymphocytes % 5 % Monocytes % 5 % Eosinophils % 4 % Basophils % 0 % Neutrophils # 7.2 (1.3-7.7) k/uL Lymphocytes # 0.5 L (1.0-4.8) k/uL Monocytes # 0.4 (0-1.0) k/uL Eosinophils # 0.3 (0-0.7) k/uL Basophils # 0.0 (0-0.2) k/uL PT (9.0-12.0) sec INR (<1.2) APTT (22.0-30.0) sec D-Dimer (<0.60) mg/L FEU Sodium 138 (137-145) mmol/L Potassium 4.5 (3.5-5.1) mmol/L Chloride 107 (98-107) mmol/L Carbon Dioxide 21 L (22-30) mmol/L Anion Gap 10 mmol/L BUN 32 H (9-20) mg/dL Creatinine 2.01 H (0.66-1.25) mg/dL Est GFR (CKD-EPI)AfAm 37 (>60 ml/min/1.73 sqM) Est GFR (CKD-EPI)NonAf 32 (>60 ml/min/1.73 sqM) Glucose 194 H (74-99) mg/dL POC Glucose (mg/dL) 194 H (75-99) mg/dL POC Glu Mandrel Maker David Castañeda Calcium 9.0 (8.4-10.2) mg/dL Magnesium 2.0 (1.6-2.3) mg/dL Total Bilirubin 0.6 (0.2-1.3) mg/dL AST 25 (17-59) U/L ALT 29 (21-72) U/L Alkaline Phosphatase 98 (38-126) U/L Creatine Kinase 57 (55-170) U/L Troponin I (0.000-0.034) ng/mL Total Protein 6.3 (6.3-8.2) g/dL Albumin 3.6 (3.5-5.0) g/dL 09/05/19 09/05/19 Range/Units 13:55 13:55 WBC (3.8-10.6) k/uL RBC (4.30-5.90) m/uL Hgb (13.0-17.5) gm/dL Hct (39.0-53.0) % MCV (80.0-100.0) fL MCH (25.0-35.0) pg MCHC (31.0-37.0) g/dL RDW (11.5-15.5) % Plt Count (150-450) k/uL Neutrophils % % Lymphocytes % % Monocytes % % Eosinophils % % Basophils % % Neutrophils # (1.3-7.7) k/uL Lymphocytes # (1.0-4.8) k/uL Monocytes # (0-1.0) k/uL Eosinophils # (0-0.7) k/uL Basophils # (0-0.2) k/uL PT 10.3 (9.0-12.0) sec INR 1.0 (<1.2) APTT 26.6 (22.0-30.0) sec D-Dimer 9.01 H (<0.60) mg/L FEU Sodium (137-145) mmol/L Potassium (3.5-5.1) mmol/L Chloride (98-107) mmol/L Carbon Dioxide (22-30) mmol/L Anion Gap mmol/L BUN (9-20) mg/dL Creatinine (0.66-1.25) mg/dL Est GFR (CKD-EPI)AfAm (>60 ml/min/1.73 sqM) Est GFR (CKD-EPI)NonAf (>60 ml/min/1.73 sqM) Glucose (74-99) mg/dL POC Glucose (mg/dL) (75-99) mg/dL POC Glu Mandrel Maker ID Calcium (8.4-10.2) mg/dL Magnesium (1.6-2.3) mg/dL Total Bilirubin (0.2-1.3) mg/dL AST (17-59) U/L ALT (21-72) U/L Alkaline Phosphatase (38-126) U/L Creatine Kinase (55-170) U/L Troponin I 0.261 H* (0.000-0.034) ng/mL Total Protein (6.3-8.2) g/dL Albumin (3.5-5.0) g/dL - Radiology Data Radiology results: report reviewed (I did review the imaging and report no acute findings.), image reviewed Critical Care Time Critical Care Time: Yes Critical Care Time: 31 minutes of critical care time which includes initial presentation with history physical labs x-rays multiple re-evaluations patient. Discussed with paramedics upon arrival review of old charting. Discussion with the admitting physician admission orders and documentation of the above Disposition Clinical Impression: Syncopal episodes, Elevated d-dimer, Elevated troponin Disposition: ADMITTED IP TO THIS HOSP Condition: Fair Referrals: Jack De Jesus MD [Primary Care Provider] - 1-2 days
[2019-09-05 15:13] LABS: D-Dimer 9.01 mg/L FEU (<0.60)
[2019-09-05] MEDS ORDERED: ENOXAPARIN 100 MG/ML SYRINGE SQ STA (16:37)
[2019-09-05] MEDS ORDERED: NALOXONE 0.4 MG/ML 1 ML VIAL IV PRN (16:44)
[2019-09-05] MEDS: SODIUM CHLORIDE 0.9% 1,000 ML IV SCH (17:24)
[2019-09-05 17:32] LABS: Glucose,Whole Blood 153 mg/dL (75-99)
[2019-09-05] MEDS: INSULIN ASPART (NovoLOG) 100 UNIT/ML VIAL SQ SCH ×2 (18:24→21:35)
[2019-09-05] MEDS: CARVEDILOL 12.5 MG TAB PO SCH (18:32)
--- NOTE | 2019-09-05 20:45 | NM ---
EXAMINATION TYPE: NM pul vent and perfuse DATE OF EXAM: 09/05/2019 COMPARISON: NONE HISTORY: TECHNIQUE: Utilizing inhalation of 37.9 mCi Tc 99m DTPA aerosol and intravenous injection of 5.1 mCi of Tc 99m MAA, ventilation and perfusion images are acquired post injection in multiple projections. FINDINGS: There are multiple segmental sized perfusion defects involving the lingula left upper lobe and also s egments of the left lower lobe and posterior segment left upper lobe with relatively normal activity on the ventilation images. There is a subsegmental ventilation/perfusion mismatch also in the right l reji in the anterior segment right upper lobe. The chest x-ray today shows no significant pulmonary consolidation.. IMPRESSION: There is high probability of pulmonary embolism with segmental sized mismatches is seen in the left l ower lobe, lingula left upper lobe, posterior segment left upper lobe and also the anterior segment o f the right upper lobe. Results of this exam were discussed with the patient's nurse on the floor Trevon at 8:40 PM.
[2019-09-05 20:58] LABS: Glucose,Whole Blood 203 mg/dL (75-99)
[2019-09-05 21:18] VITALS: BMI 28.3
[2019-09-05] MEDS: cloNIDine HCL 0.2 MG TAB PO SCH (21:34)
[2019-09-05] MEDS: PRAZOSIN 1 MG CAP PO SCH (21:34)
[2019-09-05] MEDS: TAMSULOSIN 0.4 MG CAP.ER.24H PO SCH (21:34)
[2019-09-05] MEDS: ATORVASTATIN 40 MG TAB PO SCH (21:34)
[2019-09-05] MEDS: hydrALAZINE HCL 50 MG TAB PO SCH (21:34)
[2019-09-05 21:58] LABS: Appearance,Urine Clear (Clear); Bilirubin,Urine Negative (Negative); Blood,Urine Negative (Negative); Color,Urine Yellow; Glucose,Urine (UA) 2+ (Negative); Ketones,Urine Negative (Negative); Leukocyte Esterase,Urine Negative (Negative); Mucus,Urine Rare /hpf; Nitrite,Urine Negative (Negative); PH, Urine 5.5 (5.0-8.0); Protein,Urine 2+ (Negative); RBC,Urine 1 /hpf (0-5); Specific Gravity,Urine 1.017 (1.001-1.035); Urobilinogen,Urine <2.0 mg/dL (<2.0); WBC,Urine 1 /hpf (0-5)
[2019-09-06] MEDS ORDERED: ENOXAPARIN 100 MG/ML SYRINGE SQ SCH ×2 (06:00)
[2019-09-06 06:01] LABS: Glucose,Whole Blood 193 mg/dL (75-99)
[2019-09-06] MEDS: CARVEDILOL 12.5 MG TAB PO SCH ×2 (06:46→15:56)
[2019-09-06] MEDS: SODIUM CHLORIDE 0.9% 1,000 ML IV SCH ×2 (06:47→15:57)
[2019-09-06] MEDS: INSULIN ASPART (NovoLOG) 100 UNIT/ML VIAL SQ SCH ×4 (06:47→21:11)
[2019-09-06] MEDS ORDERED: HEPARIN SODIUM,PORCINE 5,000 UNIT/ML 1 ML VIAL IV PRN (08:48)
[2019-09-06] MEDS ORDERED: HEPARIN SODIUM,PORCINE 10,000 UNIT/ML 1 ML VIAL IV ONE (08:48)
[2019-09-06] MEDS: cloNIDine HCL 0.2 MG TAB PO SCH ×3 (09:10→21:37)
[2019-09-06] MEDS: PRAZOSIN 1 MG CAP PO SCH ×3 (09:10→21:36)
[2019-09-06] MEDS: SENNOSIDES-DOCUSATE SODIUM 1 EACH TAB PO SCH (09:10)
[2019-09-06] MEDS: CHOLECALCIFEROL 1,000 UNIT TAB PO SCH (09:10)
[2019-09-06] MEDS: ISOSORBIDE MONONITRATE ER 60 MG TAB.ER.24H PO SCH (09:10)
[2019-09-06] MEDS: ASPIRIN 81 MG PO SCH (09:10)
[2019-09-06] MEDS: hydrALAZINE HCL 50 MG TAB PO SCH ×3 (09:10→21:36)
[2019-09-06] MEDS: MULTIVITAMINS, THERA 1 EACH TAB PO SCH (09:10)
--- NOTE | 2019-09-06 09:26 | P.CRDCN ---
History of Present Illness Consult date: 09/06/19 Requesting physician: Rk [facility] Consult reason: shortness of breath Chief complaint: Shortness of breath, syncope History of present illness: This is a pleasant 74-year-old gentleman who follows regularly with Dr. See in the office. He has past medical history significant for multivessel coronary artery disease, hypertension, chronic kidney disease, hyperlipidemia, diabetes, peripheral vascular disease, patient underwent a left ayihm-zdt-zbek amputation, he underwent a cardiac catheterization in 2017 which revealed a 20- 30% LAD stenosis proximally as well as a 70-80% mid segment stenosis, circumflex with 70-80%, 90% in the OM and second OM as well as 80% stenosis in the RCA, patient is not a candidate for surgical intervention and continues to be on medical therapy. He presented to the hospital on this occasion with symptoms of worsening shortness of breath and syncope. Patient states that he had put his leg prosthesis on, started to walk and became very short of breath, he also states that he became unresponsive for a brief period of time. EMS was called, on their arrival his O2 saturation was 93%. He does state that he noticed himself to be quite short of breath prior to this as well. His chest x-ray on presentation here did not reveal any acute cardiopulmonary process. EKG showed a normal sinus rhythm S1 Q3 T3 pattern noted with nonspecific ST-T wave changes. D-dimer came back to be elevated and patient underwent a VQ scan which showed high probability of pulmonary embolism with segmental-sized mismatches seen in the left lower lobe, lingula left upper lobe, posterior segment of the left upper lobe and anterior segment of the right upper lobe. I pressure 148/80 with a heart rate in the 70s, 97% on room air. White blood cell count 8.6, hem oglobin 12.9, platelet count 135. D-dimer 9.0. Sodium 138, potassium 4.5, BUN 32 and creatinine 2.0. Magnesium level 2.0. Troponin 0.26, 0.31, 0.26. At the time of my examination this morning, patient states that he does still feel himself to be short of breath, continue's to feel somewhat weak. Patient was on Lovenox 100 twice a day which we will discontinue, start the patient on high-intensity heparin. Past Medical History Past Medical History: Heart Failure, Diabetes Mellitus, Deep Vein Thrombosis (DVT), Hyperlipidemia, Hypertension, Syncope Additional Past Medical History / Comment(s): pt wants flu vaccine w veena here. other hx:per pt's "xray noted lung nodules". 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, L foot gr toe, 3rd &2nd toe amputated; Rfoot 3rd toe amputated, Bypass in Bilat legs, eulogio knee sx(cartilage), lt arm picc line.since removed, x3 sx total facial plastic sx and grafting done area under lt eye d/t injury, Ackerman placement.-rt upper chest Past Anesthesia/Blood Transfusion Reactions: Postoperative Nausea & Vomiting (PONV) Additional Past Anesthesia/Blood Transfusion Reaction / Comment(s): never recieved blood Past Psychological History: No Psychological Hx Reported Additional Psychological History / Comment(s): Patient is and lives at home with his . There are no pets in the home. No service. Patient has lived in [facility]. 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 Patient is moved to this area to be close to his children. No significant history of alcohol or recreational drug use. No international travel. No animal exposures. Smoking Status: Never smoker Past Alcohol Use History: None Reported Additional Past Alcohol Use History / Comment(s): Patient is and lives at home with his . There are no pets in the home. No service. Patient has lived in [facility]. 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 Patient is moved to this area to be close to his children. No significant history of alcohol or recreational drug use. No international travel. No animal exposures. Past Drug Use History: None Reported - Past Family History Father Family Medical History: Deep Vein Thrombosis (DVT) Additional Family Medical History / Comment(s): had valve sx- a week later from complications Mother Family Medical History: Congestive Heart Failure (CHF) Additional Family Medical History / Comment(s): phlebitis Medications and Allergies Home Medications Medication Instructions Recorded Confirmed Type Carvedilol [Coreg] 25 mg PO BID 04/03/18 09/05/19 History Atorvastatin [Lipitor] 40 mg PO HS #30 tab 09/17/18 09/05/19 Rx Isosorbide Mononitrate ER [Imdur] 60 mg PO DAILY #30 tab.er.24h 09/17/18 09/05/19 Rx cloNIDine HCL [Catapres] 0.2 mg PO TID #90 tab 09/17/18 09/05/19 Rx Tamsulosin [Flomax] 0.4 mg PO PC-SUPPER cap.er.24h 10/27/18 09/05/19 Rx Aspirin EC [Ecotrin Low Dose] 81 mg PO DAILY@1200 06/18/19 09/05/19 History Calcitriol 0.5 mcg PO MOWEFR 06/18/19 09/05/19 History Cholecalciferol [Vitamin D3 (25 5,000 units PO DAILY@1200 06/18/19 09/05/19 History Mcg = 1000 Iu)] Multivitamin/Iron/Folic Acid 1 tab PO DAILY@1200 06/18/19 09/05/19 History [Centrum Complete Multivit Tab] Sennosides-Docusate Sodium 1 tab PO DAILY 06/18/19 09/05/19 History [Senokot-S] hydrALAZINE HCL [Apresoline] 100 mg PO TID 06/18/19 09/05/19 History Insulin NPH/Reg Insulin 70/30 10 - 15 units SQ TID 09/05/19 09/05/19 History [humuLIN 70/30 VIAL] Prazosin HCl 2 mg PO TID 09/05/19 09/05/19 History Allergies Allergy/AdvReac Type Severity Reaction Status Date / Time amlodipine Allergy Anaphylaxis Verified 09/05/19 14:10 lisinopril Allergy tongue Verified 09/05/19 14:10 swelling vancomycin Allergy Unknown Verified 09/05/19 14:10 Physical Exam Vitals: Vital Signs Temp Pulse Pulse Resp BP BP Pulse Ox 09/06/19 04:00 98.2 F 79 16 149/82 97 09/05/19 23:54 98.5 F 83 17 147/84 95 09/05/19 21:01 98.4 F 90 18 173/99 95 09/05/19 20:00 98.4 F 90 18 173/99 95 09/05/19 18:55 18 09/05/19 16:48 98.1 F 70 18 151/95 96 09/05/19 13:35 98.1 F 76 18 153/94 95 Intake and Output 09/05/19 09/06/19 09/06/19 22:59 06:59 14:59 Intake Total 640 360 Output Total 300 Balance 340 360 Intake: Intake, IV Titration 640 Amount Sodium Chloride 0.9% 1, 640 000 ml @ 80 mls/hr IV . [id number] [facility] Rx#:[id number] Oral 360 Output: Urine 300 Other: Voiding Method Urinal Urinal Weight 104.5 kg GENERAL: 74-year-old gentleman in no acute distress at the time of my examination HEENT: Head is atraumatic, normocephalic. Pupils equal, round. Sclera ani cteric. Conjunctiva are clear. Mucous membranes of the mouth are moist. Neck is supple. There is no elevated jugular venous pressure. No carotid bruit is heard. HEART EXAMINATION: Heart S1, S2 normal. No murmur or gallop heard. CHEST EXAMINATION: Lungs are clear to auscultation and precussion. No chest wall tenderness is noted on palpation or with deep breathing. ABDOMEN: Soft, nontender. Bowel sounds are heard. No organomegaly noted. EXTREMITIES: 2+ peripheral pulse to the right lower extremity, patient has a left wyrxc-cup-dtmv amputation. NEUROLOGIC patient is awake, alert and oriented X3. Results 09/05/19 13:55 09/05/19 13:55 Cardiac Enzymes 09/05/19 09/05/1909/05/19 Range/Units 13:55 13:55 20:34 AST 25 (17-59) U/L Troponin I 0.261 H* 0.310 H* (0.000-0.034) ng/mL 09/06/19 Range/Units 02:01 AST (17-59) U/L Troponin I 0.269 H* (0.000-0.034) ng/mL Coagulation 09/05/19 Range/Units 13:55 PT 10.3 (9.0-12.0) sec APTT 26.6 (22.0-30.0) sec CBC 09/05/19 Range/Units 13:55 WBC 8.6 (3.8-10.6) k/uL RBC 4.32 (4.30-5.90) m/uL Hgb 12.9 L (13.0-17.5) gm/dL Hct 39.8 (39.0-53.0) % Plt Count 135 L (150-450) k/uL Comprehensive Metabolic Panel 09/05/19 Range/Units 13:55 Sodium 138 (137-145) mmol/L Potassium 4.5 (3.5-5.1) mmol/L Chloride 107 (98-107) mmol/L Carbon Dioxide 21 L (22-30) mmol/L BUN 32 H (9-20) mg/dL Creatinine 2.01 H (0.66-1.25) mg/dL Glucose 194 H (74-99) mg/dL Calcium 9.0 (8.4-10.2) mg/dL AST 25 (17-59) U/L ALT 29 (21-72) U/L Alkaline Phosphatase 98 (38-126) U/L Total Protein 6.3 (6.3-8.2) g/dL Albumin 3.6 (3.5-5.0) g/dL Current Medications Generic Name Dose Route Start Last Admin Trade Name Shahriarq PRN Reason Stop Dose Admin Aspirin 81 mg 09/06/19 12:00 Aspirin PO DAILY@1200 GRAHAM Atorvastatin Calcium 40 mg 09/05/19 21:00 09/05/19 21:34 Lipitor PO 40 mg HS GRAHAM Administration Calcitriol 0.5 mcg 09/07/19 12:00 Rocaltrol PO MoWeFr@1200 GRAHAM Carvedilol 25 mg 09/05/19 17:30 09/06/19 06:46 Coreg PO 25 mg BID-W/MEALS GRAHAM Administration Cholecalciferol 5,000 unit 09/06/19 12:00 Vitamin D3 (25 Mcg = 1000 Iu) PO DAILY@1200 GRAHAM Clonidine 0.2 mg 09/05/19 22:00 09/05/19 21:34 Catapres PO 0.2 mg TID GRAHAM Administration Heparin Sodium (Porcine) 0 unit 09/06/19 08:48 Heparin IV PER PROTOCOL PRN Low PTT Protocol Hydralazine HCl 100 mg 09/05/19 22:00 09/05/19 21:34 Apresoline PO 100 mg TID GRAHAM Administration Sodium Chloride 1,000 mls @ 80 mls/hr 09/05/19 16:45 09/06/19 06:47 Saline 0.9% IV 80 mls/hr .[id number] GRAHAM Administration Heparin Sodium/Sodium Chloride 250 mls @ 18.81 mls/hr 09/06/19 09:00 25,000 unit/ Sodium Chloride IV .[id number] [facility] Protocol 18 UNITS/KG/HR Insulin Aspart 0 unit 09/05/19 17:30 09/06/19 06:47 Novolog SQ 2 unit ACHS GRAHAM Administration Protocol Isosorbide Mononitrate 60 mg 09/06/19 09:00 Imdur PO DAILY [facility] Multivitamins 1 each 09/06/19 12:00 Theragran PO DAILY@1200 [facility] Naloxone HCl 0.2 mg 09/05/19 16:44 Narcan IV Q2M PRN Opioid Reversal Prazosin HCl 2 mg 09/05/19 22:00 09/05/19 21:34 Minipress PO 2 mg TID GRAHAM Administration Senna/Docusate Sodium 1 each 09/06/19 09:00 Senokot-S PO DAILY G[facility] Tamsulosin HCl 0.4 mg 09/05/19 18:30 09/05/19 21:34 Flomax PO 0.4 mg PC-SUPPER G[facility]HAM Administration Intake and Output 09/05/19 09/06/19 09/06/19 22:59 06:59 14:59 Intake Total 640 360 Output Total 300 Balance 340 360 Intake: Intake, IV Titration 640 Amount Sodium Chloride 0.9% 1, 640 000 ml @ 80 mls/hr IV . [id number] [facility] Rx#:[id number] Oral 360 Output: Urine 300 Other: Voiding Method Urinal Urinal Weight 104.5 kg 09/05/19 13:55 09/05/19 13:55 EKG Interpretations (text) EKG shows a normal sinus rhythm with S1 Q3 T3 pattern, T wave inversion noted in the inferior anterior lateral leads. Assessment and Plan Plan: Assessment and plan #1 fairly sudden onset of shortness of breath with associated syncope, VQ scan suggests high probability for pulmonary embolism #2 non-LA troponin elevation related to chronic kidney disease #3 hypertension #4 hyperlipidemia #5 diabetes #6 chronic kidney disease #7 PVD status post left xbjob-qpa-mjmb amputation #8 multivessel coronary artery disease, advised medical therapy Plan We will repeat an echocardiogram with Doppler study. Discontinue Lovenox and start the patient on high-intensity heparin. Continue current medications. DNP note has been reviewed, I agree with a documented findings and plan of care. Patient was seen and examined.
[2019-09-06 10:09] LABS: Basophils % (A) 1 %; Eosinophils # (A) 0.3 k/uL (0-0.7); Eosinophils % (A) 3 %; HCT 39.6 % (39.0-53.0); HGB 12.8 gm/dL (13.0-17.5); Lymphocytes # (A) 0.6 k/uL (1.0-4.8); Lymphocytes % (A) 9 %; MCH 30.1 pg (25.0-35.0); MCHC 32.3 g/dL (31.0-37.0); MCV 93.4 fL (80.0-100.0); Mean Platelet Volume 7.9; Monocytes # (A) 0.5 k/uL (0-1.0); Monocytes % (A) 7 %; Neutrophils # (A) 5.9 k/uL (1.3-7.7); Neutrophils % (A) 80 %; Platelet Count 140 k/uL (150-450); RBC 4.24 m/uL (4.30-5.90); RDW 13.9 % (11.5-15.5); WBC 7.4 k/uL (3.8-10.6)
[2019-09-06 10:17] LABS: Partial Thromboplastin Time 34.4 sec (22.0-30.0); Prothrombin Time 10.3 sec (9.0-12.0)
[2019-09-06] MEDS: HEPARIN SOD,PORK IN 0.45% NACL 25,000 UNIT in 0.45% NACL 1 250ML.BAG IV SCH (11:38)
[2019-09-06 12:02] LABS: Glucose,Whole Blood 209 mg/dL (75-99)
[2019-09-06] MEDS: TAMSULOSIN 0.4 MG CAP.ER.24H PO SCH (15:55)
[2019-09-06 16:42] LABS: Glucose,Whole Blood 229 mg/dL (75-99)
--- NOTE | 2019-09-06 17:41 | P.HPIM ---
History of Present Illness H&P Date: 09/06/19 Chief Complaint: Past out History of presenting complaint: This is a pleasant 74-year-old patient who follows with Dr. Jack De Jesus. Chronic stable medical conditions include diabetes mellitus type 2 on insulin, causing peripheral neuropathy and diabetic retinopathy, hypertension, hyperlipidemia, chronic kidney disease stage III, CHF from diastolic dysfunction, severe peripheral arterial disease, coronary artery disease not a candidate for surgical intervention, essential hypertension. Patient was walking about his prosthesis. Started feeling short of breath. His to bring a wheelchair as he felt he was going to pass out.. He then did pass out. Did come around after a few minutes. No chest pain or palpitations. Presented to ER. ER physician talked me. There was suspicion for PE. I ordered Lovenox. Later VQ scan was done. He did come back positive for pulmonary embolism. This morning patient is feeling a bit better. Sitting up. No chest pain. at the bedside. Review of systems: GEN.: Tired EYES: None HEENT: Decreased vision in the left eye NECK: None RESPIRATORY: As above CARDIOVASCULAR: None GASTROINTESTINAL: None GENITOURINARY: None MUSCULOSKELETAL: Occasional pain in the left leg stump LYMPHATICS: None HEMATOLOGICAL: None PSYCHIATRY: Slightly anxious NEUROLOGICAL: No focal symptoms. No seizure activity. Past medical history: diabetes mellitus type 2 on insulin, causing peripheral neuropathy and diabetic retinopathy, hypertension, hyperlipidemia, chronic kidney disease stage III, CHF from diastolic dysfunction, severe peripheral arterial disease, coronary artery disease not a candidate for surgical intervention, essential hypertension. 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 No alcohol or smoking history. Family history: DVT Physical examination: VITAL SIGNS: 98, 76, 18, 153/94, 95% room air GENERAL: BMI 28.8, propped up in bed, not in distress EYES: Pupils equal. Conjunctiva normal. HEENT: External appearance of nose and ears normal, oral cavity grossly normal. NECK: JVD not raised; masses not palpable. HEART: First and second heart sounds are normal; no edema. LUNGS: Respiratory rate normal; clear to auscultation. ABDOMEN: Soft, nontender, liver spleen not palpable, no masses palpable. PSYCH: Alert and oriented x3; mood and affect normal. NEUROLOGICAL: Cranial nerves grossly intact; no facial asymmetry, power and sensation grossly intact. LYMPHATICS: No lymph nodes palpable in the axilla and neck EXTREMITY: Left fuobe-hid-hbow amputation INVESTIGATIONS, reviewed in the clinical context: White count 8.6 hemoglobin 12.9 platelets 135 potassium 4.5 BUN 32 creatinine 2.01 Troponin 0.261 EKG tracing personally reviewed by me-ST segment depression from V2 through V6 and inferior leads VQ scan-high probability of PE with segmental size mismatches seen in the left lower lobe, lingula and left upper lobe, posterior segment left upper lobe and also anterior segment of the right upper lobe. Assessment: -Acute pulmonary embolism and multiple segments, causing syncope -Diabetes mellitus type 2, chronically on insulin causing peripheral neuropathy, diabetic retinopathy -Essential hypertension -Hyperlipidemia -Chronic kidney disease stage III from diabetic nephropathy and hypertensive nephrosclerosis -Chronic congestive heart failure from diastolic dysfunction -Severe peripheral arterial disease -Coronary artery disease not a candidate for surgical intervention -Decreased hearing in the right ear -Troponin positive in the setting of chronic kidney disease with no cardiac symptoms Plan: Because of the EKG changes, cardiology was consulted. Patient was on subcu Lovenox. This afternoon switched to IV heparin by cardiology. Patient is clinically doing better. Sitting up. Symptoms are much improved. Home medications resumed. Accu-Cheks will be followed. Accu-Cheks to be followed. Care was discussed with the patient. Questions were answered. Past Medical History Past Medical History: Heart Failure, Diabetes Mellitus, Deep Vein Thrombosis (DVT), Hyperlipidemia, Hypertension, Syncope Additional Past Medical History / Comment(s): pt wants flu vaccine while here. other hx:per pt's "xray noted lung nodules". 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, L foot gr toe, 3rd &2nd toe amputated; Rfoot 3rd toe amputated, Bypass in Bilat legs, eulogio knee sx(cartilage), lt arm picc line.since removed, x3 sx total facial plastic sx and grafting done area under lt eye d/t injury, Ackerman placement.-rt upper chest Past Anesthesia/Blood Transfusion Reactions: Postoperative Nausea & Vomiting (PONV) Additional Past Anesthesia/Blood Transfusion Reaction / Comment(s): never recieved blood Past Psychological History: No Psychological Hx Reported Additional Psychological History / Comment(s): Patient is and lives at home with his . There are no pets in the home. No service. Patient has lived in [facility]. 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 Patient is moved to this area to be close to his children. No significant history of alcohol or recreational drug use. No international travel. No animal exposures. Smoking Status: Never smoker Past Alcohol Use History: None Reported Additional Past Alcohol Use History / Comment(s): Patient is and lives at home with his . There are no pets in the home. No service. Patient has lived in [facility]. 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 Patient is moved to this area to be close to his children. No significant history of alcohol or recreational drug use. No international travel. No animal exposures. Past Drug Use History: None Reported - Past Family History Father Family Medical History: Deep Vein Thrombosis (DVT) Additional Family Medical History / Comment(s): had valve sx- a week later from complications Mother Family Medical History: Congestive Heart Failure (CHF) Additional Family Medical History / Comment(s): phlebitis Medications and Allergies Home Medications Medication Instructions Recorded Confirmed Type Carvedilol [Coreg] 25 mg PO BID 04/03/18 09/05/19 History Atorvastatin [Lipitor] 40 mg PO HS #30 tab 09/17/18 09/05/19 Rx Isosorbide Mononitrate ER [Imdur] 60 mg PO DAILY #30 tab.er.24h 09/17/18 09/05/19 Rx cloNIDine HCL [Catapres] 0.2 mg PO TID #90 tab 09/17/18 09/05/19 Rx Tamsulosin [Flomax] 0.4 mg PO PC-SUPPER cap.er.24h 10/27/18 09/05/19 Rx Aspirin EC [Ecotrin Low Dose] 81 mg PO DAILY@1200 06/18/19 09/05/19 History Calcitriol 0.5 mcg PO MOWEFR 06/18/19 09/05/19 History Cholecalciferol [Vitamin D3 (25 5,000 units PO DAILY@1200 06/18/19 09/05/19 History Mcg = 1000 Iu)] Multivitamin/Iron/Folic Acid 1 tab PO DAILY@1200 06/18/19 09/05/19 History [Centrum Complete Multivit Tab] Sennosides-Docusate Sodium 1 tab PO DAILY 06/18/19 09/05/19 History [Senokot-S] hydrALAZINE HCL [Apresoline] 100 mg PO TID 06/18/19 09/05/19 History Insulin NPH/Reg Insulin 70/30 10 - 15 units SQ TID 09/05/19 09/05/19 History [humuLIN 70/30 VIAL] Prazosin HCl 2 mg PO TID 09/05/19 09/05/19 History Allergies Allergy/AdvReac Type Severity Reaction Status Date / Time amlodipine Allergy Anaphylaxis Verified 09/05/19 14:10 lisinopril Allergy tongue Verified 09/05/19 14:10 swelling vancomycin Allergy Unknown Verified 09/05/19 14:10 Physical Exam Vitals: Vital Signs Temp Pulse Pulse Resp BP BP Pulse Ox 09/06/19 04:00 98.2 F 79 16 149/82 97 09/05/19 23:54 98.5 F 83 17 147/84 95 09/05/19 21:01 98.4 F 90 18 173/99 95 09/05/19 20:00 98.4 F 90 18 173/99 95 09/05/19 18:55 18 09/05/19 16:48 98.1 F 70 18 151/95 96 09/05/19 13:35 98.1 F 76 18 153/94 95 Intake and Output 1009/06/19 09/06/19 22:59 06:59 14:59 Intake Total 640 360 Output Total 300 Balance 340 360 Intake: Intake, IV Titration 640 Amount Sodium Chloride 0.9% 1, 640 000 ml @ 80 mls/hr IV . [id number] [facility] Rx#:[id number] Oral 360 Output: Urine 300 Other: Voiding Method Urinal Urinal Weight 104.5 kg Results CBC & Chem 7: 09/06/19 09:33 09/05/19 13:55 Labs: Abnormal Lab Results - Last 24 Hours (Table) 09/05/19 09/05/19 09/05/19 Range/Units 13:54 13:55 13:55 RBC (4.30-5.90) m/uL Hgb 12.9 L (13.0-17.5) gm/dL Plt Count 135 L (150-450) k/uL Lymphocytes # 0.5 L (1.0-4.8) k/uL APTT (22.0-30.0) sec D-Dimer (<0.60) mg/L FEU Carbon Dioxide 21 L (22-30) mmol/L BUN 32 H (9-20) mg/dL Creatinine 2.01 H (0.66-1.25) mg/dL Glucose 194 H (74-99) mg/dL POC Glucose (mg/dL) 194 H (75-99) mg/dL Troponin I (0.000-0.034) ng/mL Urine Protein (Negative) Urine Glucose (UA) (Negative) Urine Mucus (None) /hpf 09/05/19 09/05/19 09/05/19 Range/Units 13:55 13:55 17:30 RBC (4.30-5.90) m/uL Hgb (13.0-17.5) gm/dL Plt Count (150-450) k/uL Lymphocytes # (1.0-4.8) k/uL APTT (22.0-30.0) sec D-Dimer 9.01 H (<0.60) mg/L FEU Carbon Dioxide (22-30) mmol/L BUN (9-20) mg/dL Creatinine (0.66-1.25) mg/dL Glucose (74-99) mg/dL POC Glucose (mg/dL) 153 H (75-99) mg/dL Troponin I 0.261 H* (0.000-0.034) ng/mL Urine Protein (Negative) Urine Glucose (UA) (Negative) Urine Mucus (None) /hpf 09/05/19 09/05/19 09/05/19 Range/Units 20:34 20:56 21:00 RBC (4.30-5.90) m/uL Hgb (13.0-17.5) gm/dL Plt Count (150-450) k/uL Lymphocytes # (1.0-4.8) k/uL APTT (22.0-30.0) sec D-Dimer (<0.60) mg/L FEU Carbon Dioxide (22-30) mmol/L BUN (9-20) mg/dL Creatinine (0.66-1.25) mg/dL Glucose (74-99) mg/dL POC Glucose (mg/dL) 203 H (75-99) mg/dL Troponin I 0.310 H* (0.000-0.034) ng/mL Urine Protein 2+ H (Negative) Urine Glucose (UA) 2+ H (Negative) Urine Mucus Rare H (None) /hpf 09/06/19 09/06/19 09/06/19 Range/Units 02:01 05:59 09:33 RBC 4.24 L (4.30-5.90) m/uL Hgb 12.8 L (13.0-17.5) gm/dL Plt Count 140 L (150-450) k/uL Lymphocytes # 0.6 L (1.0-4.8) k/uL APTT (22.0-30.0) sec D-Dimer (<0.60) mg/L FEU Carbon Dioxide (22-30) mmol/L BUN (9-20) mg/dL Creatinine (0.66-1.25) mg/dL Glucose (74-99) mg/dL POC Glucose (mg/dL) 193 H (75-99) mg/dL Troponin I 0.269 H* (0.000-0.034) ng/mL Urine Protein (Negative) Urine Glucose (UA) (Negative) Urine Mucus (None) /hpf 09/06/19 Range/Units 09:33 RBC (4.30-5.90) m/uL Hgb (13.0-17.5) gm/dL Plt Count (150-450) k/uL Lymphocytes # (1.0-4.8) k/uL APTT 34.4 H (22.0-30.0) sec D-Dimer (<0.60) mg/L FEU Carbon Dioxide (22-30) mmol/L BUN (9-20) mg/dL Creatinine (0.66-1.25) mg/dL Glucose (74-99) mg/dL POC Glucose (mg/dL) (75-99) mg/dL Troponin I (0.000-0.034) ng/mL Urine Protein (Negative) Urine Glucose (UA) (Negative) Urine Mucus (None) /hpf Thrombosis Risk Factor Assmnt - Choose All That Apply Any of the Below Risk Factors Present?: Yes Each Factor Represents 1 point: Medical pt on bed rest, Obesity (BMI >25) Each Risk Factor Represents 2 Points: Age 61-74 years, Patient confined to bed Each Risk Factor Represents 3 Points: Family history of DVT/PE, History of DVT/PE Thrombosis Risk Factor Assessment Total Risk Factor Score: 12 Thrombosis Risk Factor Assessment Level: High Risk
--- NOTE | 2019-09-06 18:10 | ECHOF ---
Referral Reason:acute PE MEASUREMENTS -------- HEIGHT: 185.4 cm WEIGHT: 104.3 kg BP: 149/82 RVIDd: 4.0 cm (< 3.3) IVSd: 1.7 cm (0.6 - 1.1) LVIDd: 3.4 cm (3.9 - 5.3) LVPWd: 1.7 cm (0.6 - 1.1) IVSs: 1.9 cm LVIDs: 2.5 cm LVPWs: 2.1 cm Ao Diam: 2.7 cm (2.0 - 3.7) AV Cusp: 1.9 cm (1.5 - 2.6) LA Diam: 3.5 cm (2.7 - 3.8) MV EXCURSION: 16.594 mm (> 18.000) MV EF SLOPE: 132 mm/s (70 - 150) EPSS: 0.6 cm MV E Angel: 0.86 m/s MV DecT: 115 ms MV A Angel: 0.48 m/s MV E/A Ratio: 1.80 RAP: 5.00 mmHg RVSP: 12.70 mmHg TAPSE: 16.59 mm FINDINGS -------- Sinus rhythm with extra systolic beats. This was a technically difficult study with suboptimal views. The left ventricular size is normal. There is moderate concentric left ventricular hypertrophy. O verall left ventricular systolic function is low-normal with, an EF between 50 - 55 %. The right ventricle is moderately enlarged. The right ventricular systolic function is mildly impai red. The left atrial size is normal. The right atrial size is normal. Lumason used Aortic valve is trileaflet and is mildly thickened. The mitral valve is normal. The mitral valve leaflets are mildly thickened. Mild mitral regurgita tion is present. The tricuspid valve appears structurally normal. Mild tricuspid regurgitation present. Right vent ricular systolic pressure is normal at < 35 mmHg. There is no pulmonic regurgitation present. The aortic root size is normal. IVC Not well visulized. There is no pericardial effusion. CONCLUSIONS -------- 1. Sinus rhythm with extra systolic beats. 2. This was a technically difficult study with suboptimal views. 3. The left ventricular size is normal. 4. There is moderate concentric left ventricular hypertrophy. 5. Overall left ventricular systolic function is low-normal with, an EF between 50 - 55 %. 6. The right ventricle is moderately enlarged. 7. The right ventricular systolic function is mildly impaired. 8. The left atrial size is normal. 9. The right atrial size is normal. 10. Lumason used 11. Aortic valve is trileaflet and is mildly thickened. 12. The mitral valve is normal. 13. The mitral valve leaflets are mildly thickened. 14. Mild mitral regurgitation is present. 15. The tricuspid valve appears structurally normal. 16. Mild tricuspid regurgitation present. 17. Right ventricular systolic pressure is normal at < 35 mmHg. 18. There is no pulmonic regurgitation present. 19. The aortic root size is normal. 20. IVC Not well visulized. 21. There is no pericardial effusion. [employer]: Mary Ann Chavarria RDCS
[2019-09-06] MEDS: INSULN ASP PRT/INSULIN ASPART 100 UNIT/ML 10 ML VIAL SQ SCH (18:22)
[2019-09-06 20:27] LABS: Glucose,Whole Blood 259 mg/dL (75-99)
[2019-09-06] MEDS: ATORVASTATIN 40 MG TAB PO SCH (21:36)
[2019-09-07] MEDS: HEPARIN SOD,PORK IN 0.45% NACL 25,000 UNIT in 0.45% NACL 1 250ML.BAG IV SCH ×2 (01:35→17:06)
[2019-09-07 06:37] LABS: Glucose,Whole Blood 126 mg/dL (75-99)
[2019-09-07] MEDS: INSULIN ASPART (NovoLOG) 100 UNIT/ML VIAL SQ SCH ×3 (06:47→17:09)
[2019-09-07] MEDS: CARVEDILOL 12.5 MG TAB PO SCH ×2 (06:48→17:07)
[2019-09-07 06:57] LABS: Basophils % (A) 1 %; Eosinophils # (A) 0.4 k/uL (0-0.7); Eosinophils % (A) 7 %; HCT 36.7 % (39.0-53.0); Lymphocytes # (A) 0.8 k/uL (1.0-4.8); Lymphocytes % (A) 14 %; MCH 30.4 pg (25.0-35.0); MCHC 32.8 g/dL (31.0-37.0); MCV 92.8 fL (80.0-100.0); Mean Platelet Volume 8.8; Monocytes # (A) 0.4 k/uL (0-1.0); Monocytes % (A) 7 %; Neutrophils # (A) 3.9 k/uL (1.3-7.7); Neutrophils % (A) 70 %; Platelet Count 120 k/uL (150-450); RBC 3.96 m/uL (4.30-5.90); RDW 13.9 % (11.5-15.5); WBC 5.6 k/uL (3.8-10.6)
[2019-09-07] MEDS: INSULN ASP PRT/INSULIN ASPART 100 UNIT/ML 10 ML VIAL SQ SCH ×2 (07:10→17:10)
[2019-09-07] MEDS: ISOSORBIDE MONONITRATE ER 60 MG TAB.ER.24H PO SCH (09:42)
[2019-09-07] MEDS: cloNIDine HCL 0.2 MG TAB PO SCH ×2 (09:42→16:37)
[2019-09-07] MEDS: SENNOSIDES-DOCUSATE SODIUM 1 EACH TAB PO SCH (09:42)
[2019-09-07] MEDS: PRAZOSIN 1 MG CAP PO SCH ×2 (09:42→16:38)
[2019-09-07] MEDS: hydrALAZINE HCL 50 MG TAB PO SCH ×2 (09:42→16:38)
[2019-09-07 09:49] VITALS: RESP 16; TEMP 97.8
[2019-09-07 11:47] LABS: Glucose,Whole Blood 155 mg/dL (75-99)
[2019-09-07] MEDS ORDERED: CALCITRIOL 0.25 MCG CAP PO SCH (12:00)
[2019-09-07] MEDS: ASPIRIN 81 MG PO SCH (12:21)
[2019-09-07] MEDS: CHOLECALCIFEROL 1,000 UNIT TAB PO SCH (12:22)
[2019-09-07] MEDS: MULTIVITAMINS, THERA 1 EACH TAB PO SCH (12:22)
[2019-09-07] MEDS ORDERED: INSULN ASP PRT/INSULIN ASPART 100 UNIT/ML 10 ML VIAL SQ SCH (12:30)
--- NOTE | 2019-09-07 13:49 | P.PN ---
Subjective Progress Note Date: 09/07/19 This is a pleasant 74-year-old gentleman who follows regularly with Dr. See in the office. He has past medical history significant for multivessel coronary artery disease, hypertension, chronic kidney disease, hyperlipidemia, diabetes, peripheral vascular disease, patient underwent a left eclmy-ufo-rhzl amputation, he underwent a cardiac catheterization in 2017 which revealed a 20- 30% LAD stenosis proximally as well as a 70-80% mid segment stenosis, circumflex with 70-80%, 90% in the OM and second OM as well as 80% stenosis in the RCA, patient is not a candidate for surgical intervention and continues to be on medical therapy. He presented to the hospital on this occasion with symptoms of worsening shortness of breath and syncope. Patient states that he had put his leg prosthesis on, started to walk and became very short of breath, he also states that he became unresponsive for a brief period of time. EMS was called, on their arrival his O2 saturation was 93%. He does state that he noticed himself to be quite short of breath prior to this as well. His chest x-ray on presentation here did not reveal any acute cardiopulmonary process. EKG showed a normal sinus rhythm S1 Q3 T3 pattern noted with nonspecific ST-T wave changes. D-dimer came back to be elevated and patient underwent a VQ scan which showed high probability of pulmonary embolism with segmental-sized mismatches seen in the left lower lobe, lingula left upper lobe, posterior segment of the left upper lobe and anterior segment of the right upper lobe. I pressure 148/80 with a heart rate in the 70s, 97% on room air. White blood cell count 8.6, hemoglobin 12.9, platelet count 135. D-dimer 9.0. Sodium 138, potassium 4.5, BUN 32 and creatinine 2.0. Magnesium level 2.0. Troponin 0.26, 0.31, 0.26. At the time of my examination this morning, patient states that he does still feel himself to be short of breath, continue's to feel somewhat weak. Patient was on Lovenox 100 twice a day which we will discontinue, start the patient on high- intensity heparin. 09/07/2019 Patient was seen and examined this morning, overall feeling much better.breathing is stable, anticipating discharge home today. Blood pressure 126/70 with a heart rate in the 60s, 96% on room air. Objective - Vital Signs Vital signs: Vital Signs Temp 97.8 F 09/07/19 08:30 Pulse 69 09/07/19 11:15 Resp 16 09/07/19 11:15 BP 127/73 09/07/19 11:15 Pulse Ox 96 09/07/19 11:15 Intake & Output 09/06/19 09/07/19 09/07/19 18:59 06:59 18:59 Intake Total 694.439 244.906 347.635 Output Total 350 1500 300 Balance 344.439 -1255.094 47.635 Weight 103.5 kg Intake: Intake, IV Titration 98.439 244.906 107.635 Amount Heparin Sod,Pork in 0.45% 98.439 84.906 107.635 NaCl 25,000 unit In 0.45 % NaCl 1 250ml.bag @ 18 UNITS/KG/HR 18.81 mls/hr IV .[id number] [facility] Rx#: [id number] Sodium Chloride 0.9% 1, 160 000 ml @ 80 mls/hr IV . [id number] [facility] Rx#:[id number] Oral 596 240 Output: Urine 350 1500 300 Other: Voiding Method Urinal Urinal # Voids 2 2 - Exam GENERAL: 74-year-old gentleman in no acute distress at the time of my examination HEENT: Head is atraumatic, normocephalic. Pupils equal, round. Sclera anicteric. Conjunctiva are clear. Mucous membranes of the mouth are moist. Neck is supple. There is no elevated jugular venous pressure. No carotid bruit is heard. HEART EXAMINATION: Heart S1, S2 normal. No murmur or gallop heard. CHEST EXAMINATION: Lungs are clear to auscultation and precussion. No chest wall tenderness is noted on palpation or with deep breathing. ABDOMEN: Soft, nontender. Bowel sounds are heard. No organomegaly noted. EXTREMITIES: 2+ peripheral pulse to the right lower extremity, patient has a left vtcac-ngg-bziu amputation. NEUROLOGIC patient is awake, alert and oriented X3. - Labs CBC & Chem 7: 09/07/19 06:16 09/05/19 13:55 Labs: Abnormal Lab Results - Last 24 Hours (Table) 1009/06/19 09/06/19 Range/Units 15:18 16:41 18:44 RBC (4.30-5.90) m/uL Hgb (13.0-17.5) gm/dL Hct (39.0-53.0) % Plt Count (150-450) k/uL Lymphocytes # (1.0-4.8) k/uL APTT >200.0 H* 73.3 H (22.0-30.0) sec POC Glucose (mg/dL) 229 H (75-99) mg/dL 09/06/19 09/07/19 09/07/19 Range/Units 20:25 06:16 06:16 RBC 3.96 L (4.30-5.90) m/uL Hgb 12.0 L (13.0-17.5) gm/dL Hct 36.7 L (39.0-53.0) % Plt Count 120 L (150-450) k/uL Lymphocytes # 0.8 L (1.0-4.8) k/uL APTT 90.5 H (22.0-30.0) sec POC Glucose (mg/dL) 259 H (75-99) mg/dL 09/07/19 09/07/19 Range/Units 06:35 11:34 RBC (4.30-5.90) m/uL Hgb (13.0-17.5) gm/dL Hct (39.0-53.0) % Plt Count (150-450) k/uL Lymphocytes # (1.0-4.8) k/uL APTT (22.0-30.0) sec POC Glucose (mg/dL) 126 H 155 H (75-99) mg/dL Assessment and Plan Plan: Assessment and plan #1 fairly sudden onset of shortness of breath with associated syncope, VQ scan suggests high probability for pulmonary embolism #2 non-DC troponin elevation related to chronic kidney disease #3 hypertension #4 hyperlipidemia #5 diabetes #6 chronic kidney disease #7 PVD status post left fdzhi-ijx-mola amputation #8 multivessel coronary artery disease, advised medical therapy Plan echocardiogram with Doppler study revealed a normal left ventricular systolic function. From cardiology's perspective, we will follow this patient along with you now on an as-needed basis only, please don't hesitate to call with any questions. DNP note has been reviewed, I agree with a documented findings and plan of care. Patient was seen and examined.
[2019-09-07 15:42] VITALS: BP 186/87; PULSE 68
[2019-09-07 16:52] LABS: Glucose,Whole Blood 142 mg/dL (75-99)
[2019-09-07] MEDS: TAMSULOSIN 0.4 MG CAP.ER.24H PO SCH (17:07)
[2019-09-07] MEDS ORDERED: APIXABAN 5 MG TAB PO SCH ×2 (18:00→21:00)
--- NOTE | 2019-09-13 21:39 | P.DS ---
Providers Date of admission: 09/05/19 16:44 Expected date of discharge: 09/07/19 Attending physician: Rk Crockett Consults: 09/05/19 20:55 Consult Physician Routine Consulting Provider: Isa Astudillo Consult Reason/Comments: syncope Do you want consulting provider notified?: Yes Primary care physician: Jack De Jesus [facility] Course: Chief Complaint: Past out Hospital course: This is a pleasant 74-year-old patient who follows with Dr. Jack De Jesus. Chronic stable medical conditions include diabetes mellitus type 2 on insulin, causing peripheral neuropathy and diabetic retinopathy, hypertension, hyperlipidemia, chronic kidney disease stage III, CHF from diastolic dysfunction, severe peripheral arterial disease, coronary artery disease not a candidate for surgical intervention, essential hypertension. Patient was walking about his prosthesis. Started feeling short of breath. His to bring a wheelchair as he felt he was going to pass out.. He then did pass out. Did come around after a few minutes. No chest pain or palpitations. Presented to ER. ER physician talked me. There was suspicion for PE. I ordered Lovenox. Later VQ scan was done. He did come back positive for pulmonary embolism. Treated with IV heparin. Was then switched over to request before discharge. Patient was back to his baseline before discharge. Discussion and discharge planning more than 35 minutes Consultation: Dr. Jake Cai from cardiology Physical examination: VITAL SIGNS: 97.8, 67, 16, 166/90, 96% room air GENERAL: Sitting up comfortable EYES: Pupils equal. Conjunctiva normal. HEENT: External appearance of nose and ears normal, oral cavity grossly normal. NECK: JVD not raised; masses not palpable. HEART: First and second heart sounds are normal; no edema. LUNGS: Respiratory rate normal; clear to auscultation. ABDOMEN: Soft, nontender, liver spleen not palpable, no masses palpable. PSYCH: Alert and oriented x3; mood and affect normal. EXTREMITY: Left agrmt-uap-clun amputation INVESTIGATIONS, reviewed in the clinical context: White count 8.6 hemoglobin 12.9 platelets 135 potassium 4.5 BUN 32 creatinine 2.01 Troponin 0.261 EKG tracing personally reviewed by me-ST segment depression from V2 through V6 and inferior leads VQ scan-high probability of PE with segmental size mismatches seen in the left lower lobe, lingula and left upper lobe, posterior segment left upper lobe and also anterior segment of the right upper lobe. 2-D echo-EF 50-55%, right ventricular systolic pressure normal Discharge diagnosis: -Acute pulmonary embolism and multiple segments, causing syncope -Diabetes mellitus type 2, chronically on insulin causing peripheral neuropathy, diabetic retinopathy -Essential hypertension -Hyperlipidemia -Chronic kidney disease stage III from diabetic nephropathy and hypertensive nephrosclerosis -Chronic congestive heart failure from diastolic dysfunction -Severe peripheral arterial disease -Coronary artery disease not a candidate for surgical intervention -Decreased hearing in the right ear -Troponin positive in the setting of chronic kidney disease with no cardiac symptoms Disposition: Home Patient Condition at Discharge: Stable Plan - Discharge Summary New Discharge Prescriptions: New Apixaban [Eliquis] 5 mg PO DIRECTED #50 tab Insuln Asp Prt/Insulin Aspart [NovoLOG MIX 70-30 VIAL] 5 unit SQ AC-LUNCH vial Insuln Asp Prt/Insulin Aspart [NovoLOG MIX 70-30 VIAL] 10 unit SQ AC-BID vial Continue Carvedilol [Coreg] 25 mg PO BID Atorvastatin [Lipitor] 40 mg PO HS #30 tab cloNIDine HCL [Catapres] 0.2 mg PO TID #90 tab Isosorbide Mononitrate ER [Imdur] 60 mg PO DAILY #30 tab.er.24h Tamsulosin [Flomax] 0.4 mg PO PC-SUPPER cap.er.24h Sennosides-Docusate Sodium [Senokot-S] 1 tab PO DAILY hydrALAZINE HCL [Apresoline] 100 mg PO TID Multivitamin/Iron/Folic Acid [Centrum Complete Multivit Tab] 1 tab PO DAILY@1200 Calcitriol 0.5 mcg PO MOWEFR Cholecalciferol [Vitamin D3 (25 Mcg = 1000 Iu)] 5,000 units PO DAILY@1200 Aspirin EC [Ecotrin Low Dose] 81 mg PO DAILY@1200 Prazosin HCl 2 mg PO TID Discontinued Insulin NPH/Reg Insulin 70/30 [humuLIN 70/30 VIAL] 10 - 15 units SQ TID Discharge Medication List Carvedilol [Coreg] 25 mg PO BID 04/03/18 [History] Atorvastatin [Lipitor] 40 mg PO HS #30 tab 09/17/18 [Rx] Isosorbide Mononitrate ER [Imdur] 60 mg PO DAILY #30 tab.er.24h 09/17/18 [Rx] cloNIDine HCL [Catapres] 0.2 mg PO TID #90 tab 09/17/18 [Rx] Tamsulosin [Flomax] 0.4 mg PO PC-SUPPER cap.er.24h 10/27/18 [Rx] Aspirin EC [Ecotrin Low Dose] 81 mg PO DAILY@1200 06/18/19 [History] Calcitriol 0.5 mcg PO MOWEFR 06/18/19 [History] Cholecalciferol [Vitamin D3 (25 Mcg = 1000 Iu)] 5,000 units PO DAILY@1200 06/18/19 [History] Multivitamin/Iron/Folic Acid [Centrum Complete Multivit Tab] 1 tab PO DAILY@1200 06/18/19 [History] Sennosides-Docusate Sodium [Senokot-S] 1 tab PO DAILY 06/18/19 [History] hydrALAZINE HCL [Apresoline] 100 mg PO TID 06/18/19 [History] Prazosin HCl 2 mg PO TID 09/05/19 [History] Apixaban [Eliquis] 5 mg PO DIRECTED #50 tab 09/07/19 [Rx] Insuln Asp Prt/Insulin Aspart [NovoLOG MIX 70-30 VIAL] 5 unit SQ AC-LUNCH vial 09/07/19 [Rx] Insuln Asp Prt/Insulin Aspart [NovoLOG MIX 70-30 VIAL] 10 unit SQ AC-BID vial 09/07/19 [Rx] Follow up Appointment(s)/Referral(s): Jack De Jesus MD [Primary Care Provider] - 09/11/19 2:45 pm Bethel Murillo MD [STAFF PHYSICIAN] - 09/13/19 2:00 pm (At the [place] location, not available in [place] until the end of September. Cardiology associates can also provide samples for eliquis if needed.) Patient Instructions/Handouts: Pulmonary Embolism (DC), Syncope (DC), Safe Use of Anticoagulants (DC) Activity/Diet/Wound Care/Special Instructions: Eliquis script filled at [facility] with free 30 day coupon Call Eliquis 360 support at and ask for a benefits investigation, they will notify you about deductibles and copays. If still not affordable, request information on how to apply for patient assistance program. $147 left in gap. Discharge Disposition: HOME SELF-CARE
--- NOTE | 2019-09-14 14:26 | CDI ---
Documentation Clarification Form Date: 09/14/19 From: Fabiana Collier Phone: If you have a question about this query, please contact Tamiko Anderson, Mapping Analyst at [phone] between 8am and 5pm. Admit Date: 09/05/19 Discharge Date: 08/1819 Patient Name: Vladimir Torres Visit Number: [id number] ATTENTION: The Clinical Documentation Specialists (CDI) and [facility] Coding Staff appreciate your assistance in clarifying documentation. Please respond to the clarification below the line at the bottom and electronically sign. The CDI & [facility] Coding staff will review the response and follow-up if needed. Please note: Queries are made part of the Legal Health Record. If you have any questions, please contact the author of this message via ITS. Dear Dr Rk Crockett, Patient admitted and treated for pulmonary embolism and is documented in the History/Risk Factors: chronic diastolic CHF, HTN, CKD 3, multiple diabetic conditions Clinical Indicators:Patient started feeling SOB and passed out. Tests revealed PE. Labs: Echo results: right ventricle is moderately enlarged, the right ventricular systolic function is mildly impaired. PULVP: High probability of PE with segmental sized mismatches in LLL, lingula NIKOLAY and RUL. Cardiology Consult: PE, non-NE troponin elevation related CKD Treatment: echo, Lovenox, IV Heparin, Eliquis In your professional opinion, can you please specify if the pulmonary embolism had:: Cor pulmonale ruled out Acute Cor pulmonale Chronic Cor pulmonale Right heart strain Unable to determine Other, please specify Cor pulmonale, right heart strain, both ruled out MTDD
== END 2019-09-07 17:45 | disposition home or self-care (01) | DRG 176 ==
LOC: EC 13:31 → 3SCARD 16:44
PROVIDERS: ADMIT Hospitalist; ATTEND Hospitalist
DX: I26.99 Other pulmonary embolism without acute cor pulmonale (principal); I50.32 Chronic diastolic (congestive) heart failure; I13.0 Hypertensive heart and chronic kidney disease with heart failure and stage 1 through stage 4 chronic kidney disease, or unspecified chronic kidney disease; E78.5 Hyperlipidemia, unspecified; E11.42 Type 2 diabetes mellitus with diabetic polyneuropathy; E11.22 Type 2 diabetes mellitus with diabetic chronic kidney disease; E11.51 Type 2 diabetes mellitus with diabetic peripheral angiopathy without gangrene; E11.319 Type 2 diabetes mellitus with unspecified diabetic retinopathy without macular edema; N18.3 Chronic kidney disease, stage 3 (moderate); R79.89 Other specified abnormal findings of blood chemistry; I25.10 Atherosclerotic heart disease of native coronary artery without angina pectoris; H91.91 Unspecified hearing loss, right ear; I25.2 Old myocardial infarction; Z79.82 Long term (current) use of aspirin; Z79.4 Long term (current) use of insulin; Z79.899 Other long term (current) drug therapy; Z89.612 Acquired absence of left leg above knee; Z86.718 Personal history of other venous thrombosis and embolism; Z86.14 Personal history of Methicillin resistant Staphylococcus aureus infection; Z86.19 Personal history of other infectious and parasitic diseases; Z95.828 Presence of other vascular implants and grafts; Z89.421 Acquired absence of other right toe(s); Z87.828 Personal history of other (healed) physical injury and trauma; Z86.69 Personal history of other diseases of the nervous system and sense organs; Z98.890 Other specified postprocedural states; Z88.1 Allergy status to other antibiotic agents; Z88.8 Allergy status to other drugs, medicaments and biological substances; Z82.49 Family history of ischemic heart disease and other diseases of the circulatory system; Z83.2 Family history of diseases of the blood and blood-forming organs and certain disorders involving the immune mechanism
CPT/HCPCS: 36415; 71046; 78582; 80053; 81001; 82272; 82550; 83735; 84484; 85025; 85379; 85610; 85730; 93005; 93306; 96372; 99291

== ENCOUNTER → 2021-02-16 | Outpatient (CLI) | payer MEDICARE ==
[2021-02-16 17:34] LABS: African American GFR (CKD) 31.5 (60.0-200.0); Anion Gap 5.9 mmol/L (4.00-12.00); BUN/Creat Ratio 16.52 Ratio (12.00-20.00); Calcium 9.2 mg/dL (8.7-10.3); Carbon Dioxide 25.1 mmol/L (21.6-31.8); Non-African American GFR(CKD) 27.2 (60.0-200.0); Potassium 4.8 mmol/L (3.5-5.5)
[2021-02-16 20:56] LABS: Hemoglobin A1C 7.7 % (4.0-6.0)
== END | disposition home or self-care (01) ==
LOC: LABWHC1 08:43
PROVIDERS: ATTEND Internal Medicine
DX: E11.9 Type 2 diabetes mellitus without complications (principal); Z79.4 Long term (current) use of insulin
CPT/HCPCS: 36415; 80048; 83036

== ENCOUNTER 2021-03-04 17:37 | Inpatient (IN) | payer MEDICARE ==
[2021-03-04 17:43] LABS: Glucose,Whole Blood 61 mg/dL (75-99)
[2021-03-04] MEDS ORDERED: DEXTROSE 50% SYRINGE 50 ML IVP STA ×4 (17:45→23:03)
[2021-03-04] MEDS ORDERED: SODIUM CHLORIDE 0.9% 500 ML 500 ML IV ONE (17:49)
--- NOTE | 2021-03-04 18:08 | ED ---
General Adult HPI - General Chief complaint: Altered Mental Status Stated complaint: hypoglycemia Time Seen by Provider: 03/04/21 17:40 Source: EMS, RN notes reviewed, old records reviewed Mode of arrival: EMS Limitations: altered mental status - History of Present Illness Initial comments: This is a 75-year-old male who presents emergency Department per EMS because of altered mental status. was out all day when she returned she found him unresponsive whether he was on the floor and that we did not get that information. Patient is unable to give any history is not with the patient. EMS stated that the patient's blood sugar was 31 initially gave him D50 he seemed to come around a little bit but he still is not talking and not answering any questions. - Related Data Home Medications Medication Instructions Recorded Confirmed Carvedilol [Coreg] 25 mg PO BID 04/03/18 03/04/21 Aspirin EC [Ecotrin Low Dose] 81 mg PO DAILY 06/18/19 03/04/21 Cholecalciferol [Vitamin D3 (25 5,000 units PO DAILY 06/18/19 03/04/21 Mcg = 1000 Iu)] Multivitamin/Iron/Folic Acid 1 tab PO DAILY 06/18/19 03/04/21 [Centrum Complete Multivit Tab] Sennosides-Docusate Sodium 1 tab PO DAILY 06/18/19 03/04/21 [Senokot-S] calcitrioL [Calcitriol] 0.5 mcg PO MOWEFRSA 06/18/19 03/04/21 hydrALAZINE HCL [Apresoline] 100 mg PO TID 06/18/19 03/04/21 Prazosin HCl 4 mg PO TID 09/05/19 03/04/21 Apixaban [Eliquis] 5 mg PO BID 03/04/21 03/04/21 Insuln Asp Prt/Insulin Aspart 15 unit SQ AC-BID@0700,1800 03/04/21 03/04/21 [NovoLOG MIX 70-30 VIAL] Previous Rx's Medication Instructions Recorded Atorvastatin [Lipitor] 40 mg PO HS #30 tab 09/17/18 Isosorbide Mononitrate ER [Imdur] 60 mg PO DAILY #30 tab.er.24h 09/17/18 cloNIDine HCL [Catapres] 0.2 mg PO TID #90 tab 09/17/18 Tamsulosin [Flomax] 0.4 mg PO PC-SUPPER cap.er.24h 10/27/18 Insuln Asp Prt/Insulin Aspart 5 unit SQ AC-LUNCH vial 09/07/19 [NovoLOG MIX 70-30 VIAL] Allergies Allergy/AdvReac Type Severity Reaction Status Date / Time amlodipine Allergy Anaphylaxis Verified 03/04/21 19:45 lisinopril Allergy tongue Verified 03/04/21 19:45 swelling vancomycin Allergy Unknown Verified 03/04/21 19:45 Review of Systems ROS Statement: Those systems with pertinent positive or pertinent negative responses have been documented in the HPI. ROS Other: All systems not noted in ROS Statement are negative. Past Medical History Past Medical History: Heart Failure, Diabetes Mellitus, Deep Vein Thrombosis (DVT), Hyperlipidemia, Hypertension, Syncope Additional Past Medical History / Comment(s): -8 pt wants flu vaccine while here. other hx:per pt's "xray noted lung nodules". 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, L foot gr toe, 3rd &2nd toe amputated; Rfoot 3rd toe amputated, Bypass in Bilat legs, eulogio knee sx(cartilage), lt arm picc line.since removed, x3 sx total facial plastic sx and grafting done area under lt eye d/t injury, Ackerman placement.-rt upper chest Past Anesthesia/Blood Transfusion Reactions: Postoperative Nausea & Vomiting (PONV) Additional Past Anesthesia/Blood Transfusion Reaction / Comment(s): never recieved blood Past Psychological History: No Psychological Hx Reported Past Alcohol Use History: None Reported Past Drug Use History: None Reported - Past Family History Father Family Medical History: Deep Vein Thrombosis (DVT) Additional Family Medical History / Comment(s): had valve sx- a week later from complications Mother Family Medical History: Congestive Heart Failure (CHF) Additional Family Medical History / Comment(s): phlebitis General Exam - General Exam Comments Initial Comments: GENERAL: Patient is well-developed and well-nourished. Patient is nontoxic and well- hydrated and is in no acute distress. ENT: Neck is soft and supple. No significant lymphadenopathy is noted. Oropharynx is clear. Moist mucous membranes. Neck has full range of motion without eliciting any pain. EYES: The sclera were anicteric and conjunctiva were pink and moist. Extraocular movements were intact and pupils were equal round and reactive to light. Eyelids were unremarkable. PULMONARY: Unlabored respirations. Good breath sounds bilaterally. No audible rales rhonchi or wheezing was noted. CARDIOVASCULAR: There is a regular rate and rhythm without any murmurs gallops or rubs. ABDOMEN: Soft and nontender with normal bowel sounds. No palpable organomegaly was noted. There is no palpable pulsatile mass. SKIN: Skin is clear with no lesions or rashes and otherwise unremarkable. NEUROLOGIC: Patient is awake but not oriented at all. Difficult to assess the rest of the neurological exam secondary to the patient's condition. MUSCULOSKELETAL: Normal extremities with adequate strength and full range of motion. LYMPHATICS: No significant lymphadenopathy is noted PSYCHIATRIC: Unable to evaluate Limitations: altered mental status Course Vital Signs 03/04/21 03/04/21 03/04/21 17:40 18:07 19:23 Pulse Rate 65 66 81 Respiratory 14 18 18 Rate Blood Pressure 188/101 193/115 O2 Sat by Pulse 100 99 Oximetry 03/04/21 03/04/21 19:31 20:33 Pulse Rate 73 Respiratory 20 Rate Blood Pressure 161/85 194/100 O2 Sat by Pulse 100 Oximetry Medical Decision Making - Medical Decision Making EKG shows sinus rhythm at 67 bpm PA interval is 232 QRS is 132 QT interval 50 for QT C is 532. Patient's EKG shows ST segment depression in precordial leads V3 through V6 as well as T-wave inversions inferiorly. Patient was hypoglycemic and needed to have 2 A of D50 glucose. Patient also was put on a D5 0.45 normal saline at 75 mL an hour. Patient's blood pressure was also elevated so he was given multiple doses of hydralazine to bring his blood pressure down. I spoke with Dr. Samson he agreed to admit the patient admitted the patient wrote admitting orders. - Lab Data Result diagrams: 03/04/21 18:07 03/04/21 18:07 Lab Results 03/04/21 03/04/21 03/04/21 Range/Units 17:39 17:59 18:07 WBC 8.7 (3.8-10.6) k/uL RBC 5.09 (4.30-5.90) m/uL Hgb 15.2 (13.0-17.5) gm/dL Hct 43.3 (39.0-53.0) % MCV 85.2 (80.0-100.0) fL MCH 30.0 (25.0-35.0) pg MCHC 35.2 (31.0-37.0) g/dL RDW 13.5 (11.5-15.5) % Plt Count 129 L (150-450) k/uL MPV 8.0 Neutrophils % 87 % Lymphocytes % 5 % Monocytes % 4 % Eosinophils % 3 % Basophils % 0 % Neutrophils # 7.6 (1.3-7.7) k/uL Lymphocytes # 0.5 L (1.0-4.8) k/uL Monocytes # 0.3 (0-1.0) k/uL Eosinophils # 0.3 (0-0.7) k/uL Basophils # 0.0 (0-0.2) k/uL PT (9.0-12.0) sec INR (<1.2) APTT (22.0-30.0) sec Sodium (137-145) mmol/L Potassium (3.5-5.1) mmol/L Chloride (98-107) mmol/L Carbon Dioxide (22-30) mmol/L Anion Gap mmol/L BUN (9-20) mg/dL Creatinine (0.66-1.25) mg/dL Est GFR (CKD-EPI)AfAm (>60 ml/min/1.73 sqM) Est GFR (CKD-EPI)NonAf (>60 ml/min/1.73 sqM) Glucose (74-99) mg/dL POC Glucose (mg/dL) 61 L 110 H (75-99) mg/dL POC Glu Command And Control Officer ID Keanu Martineza Halilamargarette, Ladi Calcium (8.4-10.2) mg/dL Total Bilirubin (0.2-1.3) mg/dL AST (17-59) U/L ALT (4-49) U/L Alkaline Phosphatase (38-126) U/L Troponin I (0.000-0.034) ng/mL Total Protein (6.3-8.2) g/dL Albumin (3.5-5.0) g/dL Urine Color Urine Appearance (Clear) Urine pH (5.0-8.0) Ur Specific [place] (1.001-1.035) Urine Protein (Negative) Urine Glucose (UA) (Negative) Urine Ketones (Negative) Urine Blood (Negative) Urine Nitrite (Negative) Urine Bilirubin (Negative) Urine Urobilinogen (<2.0) mg/dL Ur Leukocyte Esterase (Negative) Urine RBC (0-5) /hpf Urine WBC (0-5) /hpf Urine Mucus (None) /hpf Urine Opiates Screen (NotDetected) Ur Oxycodone Screen (NotDetected) Urine Methadone Screen (NotDetected) Ur Propoxyphene Screen (NotDetected) Ur Barbiturates Screen (NotDetected) U Tricyclic Antidepress (NotDetected) Ur Phencyclidine Scrn (NotDetected) Ur Amphetamines Screen (NotDetected) U Methamphetamines Scrn (NotDetected) U Benzodiazepines Scrn (NotDetected) Urine Cocaine Screen (NotDetected) U Marijuana (THC) Screen (NotDetected) Serum Alcohol mg/dL 03/04/21 03/04/21 03/04/21 Range/Units 18:07 18:07 18:07 WBC (3.8-10.6) k/uL RBC (4.30-5.90) m/uL Hgb (13.0-17.5) gm/dL Hct (39.0-53.0) % MCV (80.0-100.0) fL MCH (25.0-35.0) pg MCHC (31.0-37.0) g/dL RDW (11.5-15.5) % Plt Count (150-450) k/uL MPV Neutrophils % % Lymphocytes % % Monocytes % % Eosinophils % % Basophils % % Neutrophils # (1.3-7.7) k/uL Lymphocytes # (1.0-4.8) k/uL Monocytes # (0-1.0) k/uL Eosinophils # (0-0.7) k/uL Basophils # (0-0.2) k/uL PT 10.9 (9.0-12.0) sec INR 1.0 (<1.2) APTT 26.9 (22.0-30.0) sec Sodium 138 (137-145) mmol/L Potassium 3.8 (3.5-5.1) mmol/L Chloride 105 (98-107) mmol/L Carbon Dioxide 22 (22-30) mmol/L Anion Gap 11 mmol/L BUN 35 H (9-20) mg/dL Creatinine 1.88 H (0.66-1.25) mg/dL Est GFR (CKD-EPI)AfAm 40 (>60 ml/min/1.73 sqM) Est GFR (CKD-EPI)NonAf 35 (>60 ml/min/1.73 sqM) Glucose 95 (74-99) mg/dL POC Glucose (mg/dL) (75-99) mg/dL POC Glu Command And Control Officer ID Calcium 10.6 H (8.4-10.2) mg/dL Total Bilirubin 0.8 (0.2-1.3) mg/dL AST 25 (17-59) U/L ALT 22 (4-49) U/L Alkaline Phosphatase 94 (38-126) U/L Troponin I 0.028 (0.000-0.034) ng/mL Total Protein 7.2 (6.3-8.2) g/dL Albumin 4.3 (3.5-5.0) g/dL Urine Color Urine Appearance (Clear) Urine pH (5.0-8.0) Ur Specific [place] (1.001-1.035) Urine Protein (Negative) Urine Glucose (UA) (Negative) Urine Ketones (Negative) Urine Blood (Negative) Urine Nitrite (Negative) Urine Bilirubin (Negative) Urine Urobilinogen (<2.0) mg/dL Ur Leukocyte Esterase (Negative) Urine RBC (0-5) /hpf Urine WBC (0-5) /hpf Urine Mucus (None) /hpf Urine Opiates Screen (NotDetected) Ur Oxycodone Screen (NotDetected) Urine Methadone Screen (NotDetected) Ur Propoxyphene Screen (NotDetected) Ur Barbiturates Screen (NotDetected) U Tricyclic Antidepress (NotDetected) Ur Phencyclidine Scrn (NotDetected) Ur Amphetamines Screen (NotDetected) U Methamphetamines Scrn (NotDetected) U Benzodiazepines Scrn (NotDetected) Urine Cocaine Screen (NotDetected) U Marijuana (THC) Screen (NotDetected) Serum Alcohol <10 mg/dL 03/04/21 03/04/21 03/04/21 Range/Units 19:00 19:18 19:49 WBC (3.8-10.6) k/uL RBC (4.30-5.90) m/uL Hgb (13.0-17.5) gm/dL Hct (39.0-53.0) % MCV (80.0-100.0) fL MCH (25.0-35.0) pg MCHC (31.0-37.0) g/dL RDW (11.5-15.5) % Plt Count (150-450) k/uL MPV Neutrophils % % Lymphocytes % % Monocytes % % Eosinophils % % Basophils % % Neutrophils # (1.3-7.7) k/uL Lymphocytes # (1.0-4.8) k/uL Monocytes # (0-1.0) k/uL Eosinophils # (0-0.7) k/uL Basophils # (0-0.2) k/uL PT (9.0-12.0) sec INR (<1.2) APTT (22.0-30.0) sec Sodium (137-145) mmol/L Potassium (3.5-5.1) mmol/L Chloride (98-107) mmol/L Carbon Dioxide (22-30) mmol/L Anion Gap mmol/L BUN (9-20) mg/dL Creatinine (0.66-1.25) mg/dL Est GFR (CKD-EPI)AfAm (>60 ml/min/1.73 sqM) Est GFR (CKD-EPI)NonAf (>60 ml/min/1.73 sqM) Glucose (74-99) mg/dL POC Glucose (mg/dL) 32 L 151 H (75-99) mg/dL POC Glu Command And Control Officer ID Kenton N[place] Tina Calcium (8.4-10.2) mg/dL Total Bilirubin (0.2-1.3) mg/dL AST (17-59) U/L ALT (4-49) U/L Alkaline Phosphatase (38-126) U/L Troponin I (0.000-0.034) ng/mL Total Protein (6.3-8.2) g/dL Albumin (3.5-5.0) g/dL Urine Color Light Yellow Urine Appearance Clear (Clear) Urine pH 8.0 (5.0-8.0) Ur Specific [place] 1.004 (1.001-1.035) Urine Protein 2+ H (Negative) Urine Glucose (UA) 1+ H (Negative) Urine Ketones Negative (Negative) Urine Blood Negative (Negative) Urine Nitrite Negative (Negative) Urine Bilirubin Negative (Negative) Urine Urobilinogen <2.0 (<2.0) mg/dL Ur Leukocyte Esterase Negative (Negative) Urine RBC 2 (0-5) /hpf Urine WBC 1 (0-5) /hpf Urine Mucus Rare H (None) /hpf Urine Opiates Screen Not Detected (NotDetected) Ur Oxycodone Screen Not Detected (NotDetected) Urine Methadone Screen Not Detected (NotDetected) Ur Propoxyphene Screen Not Detected (NotDetected) Ur Barbiturates Screen Not Detected (NotDetected) U Tricyclic Antidepress Not Detected (NotDetected) Ur Phencyclidine Scrn Not Detected (NotDetected) Ur Amphetamines Screen Not Detected (NotDetected) U Methamphetamines Scrn Not Detected (NotDetected) U Benzodiazepines Scrn Not Detected (NotDetected) Urine Cocaine Screen Not Detected (NotDetected) U Marijuana (THC) Screen Not Detected (NotDetected) Serum Alcohol mg/dL 03/04/21 Range/Units 20:19 WBC (3.8-10.6) k/uL RBC (4.30-5.90) m/uL Hgb (13.0-17.5) gm/dL Hct (39.0-53.0) % MCV (80.0-100.0) fL MCH (25.0-35.0) pg MCHC (31.0-37.0) g/dL RDW (11.5-15.5) % Plt Count (150-450) k/uL MPV Neutrophils % % Lymphocytes % % Monocytes % % Eosinophils % % Basophils % % Neutrophils # (1.3-7.7) k/uL Lymphocytes # (1.0-4.8) k/uL Monocytes # (0-1.0) k/uL Eosinophils # (0-0.7) k/uL Basophils # (0-0.2) k/uL PT (9.0-12.0) sec INR (<1.2) APTT (22.0-30.0) sec Sodium (137-145) mmol/L Potassium (3.5-5.1) mmol/L Chloride (98-107) mmol/L Carbon Dioxide (22-30) mmol/L Anion Gap mmol/L BUN (9-20) mg/dL Creatinine (0.66-1.25) mg/dL Est GFR (CKD-EPI)AfAm (>60 ml/min/1.73 sqM) Est GFR (CKD-EPI)NonAf (>60 ml/min/1.73 sqM) Glucose (74-99) mg/dL POC Glucose (mg/dL) 66 L (75-99) mg/dL POC Glu Command And Control Officer ID Blair Shin Calcium (8.4-10.2) mg/dL Total Bilirubin (0.2-1.3) mg/dL AST (17-59) U/L ALT (4-49) U/L Alkaline Phosphatase (38-126) U/L Troponin I (0.000-0.034) ng/mL Total Protein (6.3-8.2) g/dL Albumin (3.5-5.0) g/dL Urine Color Urine Appearance (Clear) Urine pH (5.0-8.0) Ur Specific [place] (1.001-1.035) Urine Protein (Negative) Urine Glucose (UA) (Negative) Urine Ketones (Negative) Urine Blood (Negative) Urine Nitrite (Negative) Urine Bilirubin (Negative) Urine Urobilinogen (<2.0) mg/dL Ur Leukocyte Esterase (Negative) Urine RBC (0-5) /hpf Urine WBC (0-5) /hpf Urine Mucus (None) /hpf Urine Opiates Screen (NotDetected) Ur Oxycodone Screen (NotDetected) Urine Methadone Screen (NotDetected) Ur Propoxyphene Screen (NotDetected) Ur Barbiturates Screen (NotDetected) U Tricyclic Antidepress (NotDetected) Ur Phencyclidine Scrn (NotDetected) Ur Amphetamines Screen (NotDetected) U Methamphetamines Scrn (NotDetected) U Benzodiazepines Scrn (NotDetected) Urine Cocaine Screen (NotDetected) U Marijuana (THC) Screen (NotDetected) Serum Alcohol mg/dL Critical Care Time Critical Care Time: Yes Total Critical Care Time: 35 Disposition Clinical Impression: Hypothermia, Hypoglycemia, Hypertensive urgency Disposition: ADMITTED IP TO THIS HOSP Referrals: None,Stated [REFERRING] - 1-2 days Time of Disposition: 20:54
[2021-03-04 18:09] LABS: Glucose,Whole Blood 110 mg/dL (75-99)
[2021-03-04 18:15] LABS: Basophils % (A) 0 %; Eosinophils # (A) 0.3 k/uL (0-0.7); Eosinophils % (A) 3 %; HCT 43.3 % (39.0-53.0); HGB 15.2 gm/dL (13.0-17.5); Lymphocytes # (A) 0.5 k/uL (1.0-4.8); Lymphocytes % (A) 5 %; MCHC 35.2 g/dL (31.0-37.0); MCV 85.2 fL (80.0-100.0); Monocytes # (A) 0.3 k/uL (0-1.0); Monocytes % (A) 4 %; Neutrophils # (A) 7.6 k/uL (1.3-7.7); Neutrophils % (A) 87 %; Platelet Count 129 k/uL (150-450); RBC 5.09 m/uL (4.30-5.90); RDW 13.5 % (11.5-15.5); WBC 8.7 k/uL (3.8-10.6)
[2021-03-04 18:33] LABS: ALT 22 U/L (4-49); AST 25 U/L (17-59); African American GFR (CKD) 40 (>60 ml/min/1.73 sqM); Albumin 4.3 g/dL (3.5-5.0); Alcohol <10 mg/dL; Alkaline Phosphatase 94 U/L (38-126); Anion Gap 11 mmol/L; Blood Urea Nitrogen 35 mg/dL (9-20); Calcium 10.6 mg/dL (8.4-10.2); Carbon Dioxide 22 mmol/L (22-30); Chloride 105 mmol/L (98-107); Glucose 95 mg/dL (74-99); Non-African American GFR(CKD) 35 (>60 ml/min/1.73 sqM); Potassium 3.8 mmol/L (3.5-5.1); Sodium 138 mmol/L (137-145); Total Bilirubin 0.8 mg/dL (0.2-1.3); Total Protein 7.2 g/dL (6.3-8.2)
[2021-03-04 18:34] LABS: Partial Thromboplastin Time 26.9 sec (22.0-30.0); Prothrombin Time 10.9 sec (9.0-12.0)
--- NOTE | 2021-03-04 18:50 | CT ---
EXAMINATION TYPE: CT brain gary wo con DATE OF EXAM: 03/04/2021 COMPARISON: CT brain 09/14/2018 HISTORY: Fall, altered mental status. CT DLP: 1608.8 mGycm Automated exposure control for dose reduction was used. Images obtained of the brain and cervical spine without contrast. There is cerebral cortical atrophy. There is no mass effect nor midline shift. There is no sign of in tracranial hemorrhage. The calvarium is intact. Skull base is intact. There is fluid level right maxi llary sinus. Cervical vertebra have normal alignment. There is degenerative mild spurring from C4 to C7. Posterior elements are intact. There is no evidence of cervical spine fracture. The skull base is intact. IMPRESSION: Spondylotic changes in the mid and lower cervical spine. No fracture. Cerebral atrophy. No acute intracranial abnormality. Brain unchanged compared to old exam.
--- NOTE | 2021-03-04 18:56 | XR ---
EXAMINATION TYPE: XR chest 2V DATE OF EXAM: 03/04/2021 COMPARISON: 09/05/2019 HISTORY: Syncope. Altered mental status TECHNIQUE: 2 views FINDINGS: There is some mild infiltrate and atelectasis at the right lung base. There is no heart ruth lure. Heart size is normal. There are no hilar masses. There is possible infiltrate also in the media l left upper lobe. Bony thorax is intact. IMPRESSION: There is evidence for some pneumonia in the medial left upper lobe and the right lung bas e which is new compared to old exam. No heart failure.
[2021-03-04] MEDS ORDERED: hydrALAZINE HCL 20 MG/ML 1 ML VIAL IVP STA ×2 (18:57→20:51)
[2021-03-04 19:14] LABS: Appearance,Urine Clear (Clear); Bilirubin,Urine Negative (Negative); Blood,Urine Negative (Negative); Color,Urine Light Yellow; Glucose,Urine (UA) 1+ (Negative); Ketones,Urine Negative (Negative); Leukocyte Esterase,Urine Negative (Negative); Mucus,Urine Rare /hpf; Nitrite,Urine Negative (Negative); Protein,Urine 2+ (Negative); RBC,Urine 2 /hpf (0-5); Specific Gravity,Urine 1.004 (1.001-1.035); Urobilinogen,Urine <2.0 mg/dL (<2.0); WBC,Urine 1 /hpf (0-5)
[2021-03-04 19:21] LABS: Glucose,Whole Blood 32 mg/dL (75-99)
[2021-03-04] MEDS ORDERED: DEXTROSE 5%-0.45% NACL 1,000 ML IV ONE (19:25)
[2021-03-04 19:26] LABS: Amphetamine Screen,Urine Not Detected (NotDetected); Barbiturate Screen,Urine Not Detected (NotDetected); Benzodiazepines Screen,Urine Not Detected (NotDetected); Cocaine Screen,Urine Not Detected (NotDetected); Methadone Screen, Urine Not Detected (NotDetected); Opiate Screen,Urine Not Detected (NotDetected); Oxycodone Screen, Urine Not Detected (NotDetected); Phencyclidine Screen,Urine Not Detected (NotDetected); Tricyclic Antidepressant,Urine Not Detected (NotDetected); Urn Cannabinoid Scrn Not Detected (NotDetected)
[2021-03-04 19:51] LABS: Glucose,Whole Blood 151 mg/dL (75-99)
[2021-03-04 20:36] LABS: Glucose,Whole Blood 66 mg/dL (75-99)
[2021-03-04 21:31] LABS: Glucose,Whole Blood 112 mg/dL (75-99)
[2021-03-04] MEDS ORDERED: ONDANSETRON 4 MG/2 ML VIAL IVP PRN (22:25)
[2021-03-04] MEDS ORDERED: ISOSORBIDE MONONITRATE ER 60 MG TAB.ER.24H PO STA (22:31)
[2021-03-04 22:37] LABS: Glucose,Whole Blood 68 mg/dL (75-99)
[2021-03-04] MEDS: cloNIDine HCL 0.2 MG TAB PO SCH (22:52)
[2021-03-04] MEDS: DEXTROSE 10% IN WATER 1,000 ML in EMPTY BAG 1 BAG IV SCH (22:57)
[2021-03-04] MEDS ORDERED: Dextrose 25% Syringe (PEDs) 10 ML SYRINGE IVP STA (23:00)
[2021-03-04 23:27] LABS: Glucose,Whole Blood 148 mg/dL (75-99)
[2021-03-04 23:27] LABS: Glucose,Whole Blood 49 mg/dL (75-99)
[2021-03-05 00:04] LABS: Glucose,Whole Blood 109 mg/dL (75-99)
[2021-03-05] MEDS: hydrALAZINE HCL 50 MG TAB PO SCH ×4 (00:45→20:49)
[2021-03-05 01:02] LABS: Glucose,Whole Blood 103 mg/dL (75-99)
[2021-03-05 02:05] LABS: Glucose,Whole Blood 100 mg/dL (75-99)
[2021-03-05 03:04] LABS: Glucose,Whole Blood 74 mg/dL (75-99)
[2021-03-05 04:06] LABS: Glucose,Whole Blood 72 mg/dL (75-99)
[2021-03-05 05:04] LABS: Glucose,Whole Blood 79 mg/dL (75-99)
[2021-03-05 05:52] LABS: Glucose,Whole Blood 86 mg/dL (75-99)
[2021-03-05] MEDS: carvediloL 12.5 MG TAB PO SCH ×2 (06:41→16:00)
[2021-03-05 07:02] LABS: Glucose,Whole Blood 85 mg/dL (75-99)
[2021-03-05 08:01] LABS: Glucose,Whole Blood 136 mg/dL (75-99)
[2021-03-05 09:02] LABS: Glucose,Whole Blood 115 mg/dL (75-99)
[2021-03-05] MEDS: PRAZOSIN 1 MG CAP PO SCH ×3 (09:42→20:49)
[2021-03-05] MEDS: cloNIDine HCL 0.2 MG TAB PO SCH ×3 (09:43→20:49)
[2021-03-05] MEDS: APIXABAN 5 MG TAB PO SCH ×2 (09:43→20:49)
[2021-03-05 10:11] LABS: Glucose,Whole Blood 90 mg/dL (75-99)
[2021-03-05 11:10] LABS: Glucose,Whole Blood 96 mg/dL (75-99)
[2021-03-05 12:20] LABS: Glucose,Whole Blood 102 mg/dL (75-99)
[2021-03-05 13:00] LABS: Glucose,Whole Blood 124 mg/dL (75-99)
[2021-03-05 14:10] LABS: Glucose,Whole Blood 202 mg/dL (75-99)
[2021-03-05 15:11] LABS: Glucose,Whole Blood 159 mg/dL (75-99)
[2021-03-05] MEDS: DEXTROSE 10% IN WATER 1,000 ML in EMPTY BAG 1 BAG IV SCH (15:34)
[2021-03-05 16:11] LABS: Glucose,Whole Blood 167 mg/dL (75-99)
[2021-03-05 17:04] LABS: Glucose,Whole Blood 189 mg/dL (75-99)
[2021-03-05 18:11] LABS: Glucose,Whole Blood 347 mg/dL (75-99)
[2021-03-05 19:26] LABS: Glucose,Whole Blood 205 mg/dL (75-99)
[2021-03-05 20:07] LABS: Glucose,Whole Blood 178 mg/dL (75-99)
[2021-03-05] MEDS: SODIUM CHLORIDE 0.9% 1,000 ML IV SCH (20:48)
[2021-03-05 22:12] LABS: Glucose,Whole Blood 304 mg/dL (75-99)
[2021-03-06 02:06] LABS: Glucose,Whole Blood 137 mg/dL (75-99)
[2021-03-06 04:25] LABS: Glucose,Whole Blood 108 mg/dL (75-99)
[2021-03-06 06:33] LABS: Glucose,Whole Blood 116 mg/dL (75-99)
[2021-03-06] MEDS: carvediloL 12.5 MG TAB PO SCH ×2 (06:54→17:58)
[2021-03-06] MEDS: APIXABAN 5 MG TAB PO SCH ×2 (08:38→20:06)
[2021-03-06] MEDS: PRAZOSIN 1 MG CAP PO SCH ×3 (08:38→20:06)
[2021-03-06] MEDS: cloNIDine HCL 0.2 MG TAB PO SCH ×3 (08:39→20:06)
[2021-03-06] MEDS: hydrALAZINE HCL 50 MG TAB PO SCH ×3 (08:39→20:06)
[2021-03-06 09:54] LABS: Glucose,Whole Blood 140 mg/dL (75-99)
[2021-03-06 11:59] LABS: Glucose,Whole Blood 164 mg/dL (75-99)
[2021-03-06 16:56] LABS: Glucose,Whole Blood 169 mg/dL (75-99)
[2021-03-06 17:59] LABS: Glucose,Whole Blood 204 mg/dL (75-99)
[2021-03-06] MEDS: SODIUM CHLORIDE 0.9% 1,000 ML IV SCH (18:39)
[2021-03-06 20:07] LABS: Glucose,Whole Blood 257 mg/dL (75-99)
[2021-03-06] MEDS ORDERED: NON FORMULARY DRUG (Carvedilol [Coreg] 25 MG Tablet) PO SCH (21:15)
[2021-03-06] MEDS ORDERED: ATORVASTATIN 40 MG TAB PO SCH (21:30)
[2021-03-06 21:52] LABS: Glucose,Whole Blood 285 mg/dL (75-99)
[2021-03-06] MEDS ORDERED: NON FORMULARY DRUG (Hydralazine Hcl [Apresoline] 100 MG Tablet) PO SCH (22:00)
[2021-03-06] MEDS ORDERED: NON FORMULARY DRUG (Prazosin Hcl [Prazosin Hcl] 2 MG Capsule) PO SCH (22:00)
[2021-03-06] MEDS ORDERED: cloNIDine HCL 0.2 MG TAB PO SCH (22:00)
--- NOTE | 2021-03-06 22:20 | P.HPIM ---
History of Present Illness H&P Date: 03/06/21 Chief Complaint: Unresponsive History of presenting complaint: (Patient was not on my list yesterday and was ordered on my list late this afternoon) This is a pleasant 75-year-old patient who follows with Dr. Jack De Jesus. Chronic stable medical conditions include diabetes mellitus type 2 on insulin, causing peripheral neuropathy and diabetic retinopathy, hypertension, hy perlipidemia, chronic kidney disease stage III, CHF from diastolic dysfunction, severe peripheral arterial disease, coronary artery disease not a candidate for surgical intervention, essential hypertension. On Tuesday patient's him back home after shopping and found him unresponsive. She had last seen him around 10:00 in the morning when he was normal. EMS came ordered for him to be unresponsive. Vital signs noted was 180/84, 76, 16, 93%. Sinus rhythm. Patient was: Diaphoretic. With some vomiting on the right shoulder. Patient's Accu-Chek was 31. Patient is given dextrose. Patient started to wake up started slowly to follow commands. Patient is brought into the ER. Had a baseline patient does use a wheelchair to get about. Patient's appetite has been fair. No fever no chills. No urinary symptoms. No chest pain. Review of systems: GEN.: None EYES: None HEENT: Decreased vision in the left eye NECK: None RESPIRATORY: As above CARDIOVASCULAR: None GASTROINTESTINAL: None GENITOURINARY: None MUSCULOSKELETAL: Occasional pain in the left leg stump LYMPHATICS: None HEMATOLOGICAL: None PSYCHIATRY: Slightly anxious NEUROLOGICAL: No focal symptoms. No seizure activity. Past medical history: diabetes mellitus type 2 on insulin, causing peripheral neuropathy and diabetic retinopathy, hypertension, hyperlipidemia, chronic kidney disease stage III, CHF from diastolic dysfunction, severe peripheral arterial disease, coronary artery disease not a candidate for surgical intervention, essential hypertension. 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 No alcohol or smoking history. Family history: DVT Physical examination: VITAL SIGNS: 97.9, 71, 18, 145 a 74, 98% on room air GENERAL: BMI 29.9, sitting up in bed, comfortable EYES: Pupils equal. Conjunctiva normal. HEENT: External appearance of nose and ears normal, oral cavity grossly normal. NECK: JVD not raised; masses not palpable. HEART: First and second heart sounds are normal; no edema. LUNGS: Respiratory rate normal; clear to auscultation. ABDOMEN: Soft, nontender, liver spleen not palpable, no masses palpable. PSYCH: Alert and oriented x3; mood and affect normal. NEUROLOGICAL: Cranial nerves grossly intact; no facial asymmetry, power and sensation grossly intact. LYMPHATICS: No lymph nodes palpable in the axilla and neck EXTREMITY: Left [id number] amputation INVESTIGATIONS, reviewed in the clinical context: WBC 8.7 hemoglobin 15.2 platelets 129 potassium 3.8 bun 35 creatinine 1.8. Blood glucose 95 Accu-Cheks 32, 61, 110 Troponin I 0.028 Urine drug screen negative EKG tracing personally reviewed by me-on sinus rhythm, some ST segment depressions Assessment and plan: -Episode of unconsciousness from severe hypoglycemia. . Exact precipitating cause unknown Follow Accu-Cheks closely. We'll cut back home dose of insulin and follow Accu- Cheks closely. -Diabetes mellitus type 2, chronically on insulin causing peripheral neuropathy, diabetic retinopathy Follow Accu-Cheks -Essential hypertension Continue with Coreg, Catapres, hydralazine, Minipress -Hyperlipidemia Continue with Lipitor -Chronic kidney disease stage III from diabetic nephropathy and hypertensive n ephrosclerosis Follow renal function -Chronic congestive heart failure from diastolic dysfunction Follow fluid status -Severe peripheral arterial disease Continue with aspirin -Coronary artery disease not a candidate for surgical intervention Continue with Coreg, Lipitor, Imdur -Decreased hearing in the right ear Care was discussed with the patient. Knows of home dose of insulin has been cut back. Follow Accu-Cheks. Past Medical History Past Medical History: Heart Failure, Diabetes Mellitus, Deep Vein Thrombosis (DVT), Hyperlipidemia, Hypertension, Syncope Additional Past Medical History / Comment(s): pt wants flu vaccine while here. other hx:per pt's "xray noted lung nodules". 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 There are no pets in the home. No service. Patient has lived in [facility]. 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 Patient is moved to this area to be close to his children. No significant history of alcohol or recreational drug use. No international travel. No animal exposures. Smoking Status: Never smoker Past Alcohol Use History: None Reported Additional Past Alcohol Use History / Comment(s): Patient is and lives at home with his . There are no pets in the home. No service. Patient has lived in [facility]. 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 Patient is moved to this area to be close to his children. No significant history of alcohol or recreational drug use. No international t ravel. No animal exposures. Past Drug Use History: None Reported - Past Family History Father Family Medical History: Deep Vein Thrombosis (DVT) Additional Family Medical History / Comment(s): had valve sx- a week later from complications Mother Family Medical History: Congestive Heart Failure (CHF) Additional Family Medical History / Comment(s): phlebitis Medications and Allergies Home Medications Medication Instructions Recorded Confirmed Type Carvedilol [Coreg] 25 mg PO BID 04/03/18 03/04/21 History Atorvastatin [Lipitor] 40 mg PO HS #30 tab 09/17/18 03/04/21 Rx Isosorbide Mononitrate ER [Imdur] 60 mg PO DAILY #30 tab.er.24h 09/17/18 03/04/21 Rx cloNIDine HCL [Catapres] 0.2 mg PO TID #90 tab 09/17/18 03/04/21 Rx Tamsulosin [Flomax] 0.4 mg PO PC-SUPPER cap.er.24h 10/27/18 03/04/21 Rx Aspirin EC [Ecotrin Low Dose] 81 mg PO DAILY 06/18/19 03/04/21 History Cholecalciferol [Vitamin D3 (25 5,000 units PO DAILY 06/18/19 03/04/21 History Mcg = 1000 Iu)] Multivitamin/Iron/Folic Acid 1 tab PO DAILY 06/18/19 03/04/21 History [Centrum Complete Multivit Tab] Sennosides-Docusate Sodium 1 tab PO DAILY 06/18/19 03/04/21 History [Senokot-S] calcitrioL [Calcitriol] 0.5 mcg PO MOWEFRSA 06/18/19 03/04/21 History hydrALAZINE HCL [Apresoline] 100 mg PO TID 06/18/19 03/04/21 History Prazosin HCl 4 mg PO TID 09/05/19 03/04/21 History Insuln Asp Prt/Insulin Aspart 5 unit SQ AC-LUNCH vial 09/07/19 03/04/21 Rx [NovoLOG MIX 70-30 VIAL] Apixaban [Eliquis] 5 mg PO BID 03/04/21 03/04/21 History Insuln Asp Prt/Insulin Aspart 15 unit SQ AC-BID@0700,1800 03/04/21 03/04/21 History [NovoLOG MIX 70-30 VIAL] Allergies Allergy/AdvReac Type Severity Reaction Status Date / Time amlodipine Allergy Anaphylaxis Verified 03/04/21 19:45 lisinopril Allergy tongue Verified 03/04/21 19:45 swelling vancomycin Allergy Unknown Verified 03/04/21 19:45 Physical Exam Vitals: Vital Signs Temp Pulse Pulse Resp BP Pulse Ox 03/06/21 16:00 97.9 F 71 18 145/74 93 L 03/06/21 14:00 76 86 16 03/06/21 12:00 98.4 F 76 16 132/64 98 03/06/21 08:00 97.3 F L 78 86 16 128/71 96 03/06/21 04:00 98.1 F 73 18 113/61 100 03/06/21 00:00 98.2 F 74 18 122/76 100 Intake and Output 03/06/21 03/06/21 03/06/21 06:59 14:59 22:59 Intake Total 480 600 Output Total 650 300 Balance -170 300 Intake: Oral 480 600 Output: Urine 650 300 Other: Voiding Method Urinal Urinal # Voids 0 Weight 103.5 kg Results CBC & Chem 7: 03/04/21 18:07 03/04/21 18:07 Labs: Abnormal Lab Results - Last 24 Hours (Table) 03/05/21 03/06/21 03/06/21 Range/Units 22:10 02:03 04:23 POC Glucose (mg/dL) 304 H 137 H 108 H (75-99) mg/dL 03/06/21 03/06/21 03/06/21 Range/Units 06:24 09:53 11:58 POC Glucose (mg/dL) 116 H 140 H 164 H (75-99) mg/dL 03/06/21 03/06/21 03/06/21 Range/Units 16:55 17:57 20:05 POC Glucose (mg/dL) 169 H 204 H 257 H (75-99) mg/dL 03/06/21 Range/Units 21:51 POC Glucose (mg/dL) 285 H (75-99) mg/dL Thrombosis Risk Factor Assmnt - Choose All That Apply Any of the Below Risk Factors Present?: No Other Risk Factors: Yes Each Risk Factor Represents 2 Points: Age 61-74 years Each Risk Factor Represents 3 Points: History of DVT/PE Thrombosis Risk Factor Assessment Total Risk Factor Score: 5 Thrombosis Risk Factor Assessment Level: High Risk
[2021-03-06 22:46] LABS: Basophils # (A) 0.1 k/uL (0-0.2); Basophils % (A) 1 %; Eosinophils # (A) 0.6 k/uL (0-0.7); Eosinophils % (A) 7 %; HCT 34.1 % (39.0-53.0); Lymphocytes % (A) 12 %; MCH 30.6 pg (25.0-35.0); MCHC 34.9 g/dL (31.0-37.0); MCV 87.7 fL (80.0-100.0); Mean Platelet Volume 9.2; Monocytes # (A) 0.6 k/uL (0-1.0); Monocytes % (A) 7 %; Neutrophils # (A) 5.8 k/uL (1.3-7.7); Neutrophils % (A) 70 %; Platelet Count 127 k/uL (150-450); RBC 3.89 m/uL (4.30-5.90); RDW 13.9 % (11.5-15.5); WBC 8.3 k/uL (3.8-10.6)
[2021-03-06 22:53] LABS: HGB 11.9 gm/dL (13.0-17.5)
[2021-03-06 22:56] LABS: Calcium 8.3 mg/dL (8.4-10.2); Potassium 4.1 mmol/L (3.5-5.1)
[2021-03-06 23:58] LABS: Glucose,Whole Blood 239 mg/dL (75-99)
[2021-03-07 01:57] LABS: Glucose,Whole Blood 211 mg/dL (75-99)
[2021-03-07 03:54] LABS: Glucose,Whole Blood 257 mg/dL (75-99)
[2021-03-07 05:52] VITALS: PULSE 67; RESP 20
[2021-03-07 06:04] LABS: Glucose,Whole Blood 162 mg/dL (75-99)
[2021-03-07] MEDS: carvediloL 12.5 MG TAB PO SCH (06:39)
[2021-03-07] MEDS ORDERED: INSULN ASP PRT/INSULIN ASPART 100 UNIT/ML 10 ML VIAL SQ SCH ×2 (07:00→12:30)
[2021-03-07 08:04] LABS: Glucose,Whole Blood 194 mg/dL (75-99)
[2021-03-07] MEDS: APIXABAN 5 MG TAB PO SCH (08:39)
[2021-03-07] MEDS: hydrALAZINE HCL 50 MG TAB PO SCH (08:39)
[2021-03-07] MEDS: cloNIDine HCL 0.2 MG TAB PO SCH (08:39)
[2021-03-07] MEDS: PRAZOSIN 1 MG CAP PO SCH (08:40)
[2021-03-07] MEDS ORDERED: ASPIRIN 81 MG PO SCH (09:00)
[2021-03-07] MEDS ORDERED: SENNOSIDES-DOCUSATE SODIUM 1 EACH TAB PO SCH (09:00)
[2021-03-07] MEDS ORDERED: ISOSORBIDE MONONITRATE ER 60 MG TAB.ER.24H PO SCH (09:00)
[2021-03-07] MEDS ORDERED: MULTIVITAMINS, THERA 1 EACH TAB PO SCH (09:00)
[2021-03-07 11:25] VITALS: BP 151/70; TEMP 98.7
[2021-03-07 11:40] LABS: Glucose,Whole Blood 236 mg/dL (75-99)
[2021-03-07] MEDS ORDERED: TAMSULOSIN 0.4 MG CAP.ER.24H PO SCH (18:30)
--- NOTE | 2021-03-08 00:04 | P.DS ---
Providers Date of admission: 03/04/21 21:06 Expected date of discharge: 03/07/21 Attending physician: Rk Crockett Primary care physician: Jack De Jesus [facility] Course: Chief Complaint: Unresponsive History of presenting complaint: (Patient was not on my list yesterday and was ordered on my list late this afternoon) This is a pleasant 75-year-old patient who follows with Dr. Jack De Jesus. Chronic stable medical conditions include diabetes mellitus type 2 on insulin, causing peripheral neuropathy and diabetic retinopathy, hypertension, hyperlipidemia, chronic kidney disease stage III, CHF from diastolic d ysfunction, severe peripheral arterial disease, coronary artery disease not a candidate for surgical intervention, essential hypertension. On Tuesday patient's him back home after shopping and found him unresponsive. She had last seen him around 10:00 in the morning when he was normal. EMS came ordered for him to be unresponsive. Vital signs noted was 180/84, 76, 16, 93%. Sinus rhythm. Patient was: Diaphoretic. With some vomiting on the right shoulder. Patient's Accu-Chek was 31. Patient is given dextrose. Patient started to wake up started slowly to follow commands. Patient is brought into the ER. Had a baseline patient does use a wheelchair to get about. Patient's appetite has been fair. No fever no chills. No urinary symptoms. No chest pain. Admitted with hypoglycemia. Dose of insulin was cut back. Accu-Cheks but a controlled. Also acute on chronic kidney disease. Given IV fluids. Patient will follow-up with nephrology. Care was discussed with the patient today. Questions answered. Past medical history: diabetes mellitus type 2 on insulin, causing peripheral neuropathy and diabetic retinopathy, hypertension, hyperlipidemia, chronic kidney disease stage III, CHF from diastolic dysfunction, severe peripheral arterial disease, coronary artery disease not a candidate for surgical intervention, essential hypertension. 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 No alcohol or smoking history. Family history: DVT Physical examination: VITAL SIGNS: 98.7, 76, 18, 151 with 70, 97% room air GENERAL: BMI 29.9, sitting up in bed, comfortable EYES: Pupils equal. Conjunctiva normal. HEENT: External appearance of nose and ears normal, oral cavity grossly normal. NECK: JVD not raised; masses not palpable. HEART: First and second heart sounds are normal; no edema. LUNGS: Respiratory rate normal; clear to auscultation. ABDOMEN: Soft, nontender, liver spleen not palpable, no masses palpable. PSYCH: Alert and oriented x3; mood and affect normal. NEUROLOGICAL: Cranial nerves grossly intact; no facial asymmetry, power and sensation grossly intact. INVESTIGATIONS, reviewed in the clinical context: March 06: BUN 64 creatinine 2.89 hemoglobin 11.9 WBC 8.7 hemoglobin 15.2 platelets 129 potassium 3.8 bun 35 creatinine 1.8. Blood glucose 95 Accu-Cheks 32, 61, 110 Troponin I 0.028, 0.058 Urine drug screen negative EKG tracing personally reviewed by me-on sinus rhythm, some ST segment depressions Chest x-ray film personally reviewed by me-infiltrate CT head and cervical spine. Chronic changes Assessment and plan: -Episode of unconsciousness from severe hypoglycemia. . Exact precipitating cause unknown Follow Accu-Cheks closely. We'll cut back home dose of insulin and follow Accu- Cheks closely. -Diabetes mellitus type 2, chronically on insulin causing peripheral neuropathy, diabetic retinopathy Follow Accu-Cheks -Essential hypertension Continue with Coreg, Catapres, hydralazine, Minipress -Hyperlipidemia Continue with Lipitor -Chronic kidney disease stage III from diabetic nephropathy and hypertensive nephrosclerosis Follow renal function -Chronic congestive heart failure from diastolic dysfunction Follow fluid status -Severe peripheral arterial disease Continue with aspirin -Coronary artery disease not a candidate for surgical intervention Continue with Coreg, Lipitor, Imdur -Decreased hearing in the right ear -Troponin leak from hemodynamic instability. No clinical evidence of acute coronary syndrome. Patient denied any chest pain Disposition: Home Patient Condition at Discharge: Fair Plan - Discharge Summary Discharge Rx Participant: No New Discharge Prescriptions: Continue Atorvastatin [Lipitor] 40 mg PO HS #30 tab cloNIDine HCL [Catapres] 0.2 mg PO TID #90 tab Isosorbide Mononitrate ER [Imdur] 60 mg PO DAILY #30 tab.er.24h Tamsulosin [Flomax] 0.4 mg PO PC-SUPPER cap.er.24h Sennosides-Docusate Sodium [Senokot-S] 1 tab PO DAILY hydrALAZINE HCL [Apresoline] 100 mg PO TID Multivitamin/Iron/Folic Acid [Centrum Complete Multivit Tab] 1 tab PO DAILY calcitrioL [Calcitriol] 0.5 mcg PO MOWEFRSA Cholecalciferol [Vitamin D3 (25 Mcg = 1000 Iu)] 5,000 units PO DAILY Aspirin EC [Ecotrin Low Dose] 81 mg PO DAILY Prazosin HCl 4 mg PO TID Apixaban [Eliquis] 5 mg PO BID Changed Insuln Asp Prt/Insulin Aspart [NovoLOG MIX 70-30 VIAL] 10 unit SQ AC- BID@0700,1800 #0 Insuln Asp Prt/Insulin Aspart [NovoLOG MIX 70-30 VIAL] 4 unit SQ AC-LUNCH #0 vial Carvedilol [Coreg] 12.5 mg PO BID #0 Discharge Medication List Atorvastatin [Lipitor] 40 mg PO HS #30 tab 09/17/18 [Rx] Isosorbide Mononitrate ER [Imdur] 60 mg PO DAILY #30 tab.er.24h 09/17/18 [Rx] cloNIDine HCL [Catapres] 0.2 mg PO TID #90 tab 09/17/18 [Rx] Tamsulosin [Flomax] 0.4 mg PO PC-SUPPER cap.er.24h 10/27/18 [Rx] Aspirin EC [Ecotrin Low Dose] 81 mg PO DAILY 06/18/19 [History] Cholecalciferol [Vitamin D3 (25 Mcg = 1000 Iu)] 5,000 units PO DAILY 06/18/19 [History] Multivitamin/Iron/Folic Acid [Centrum Complete Multivit Tab] 1 tab PO DAILY 06/18/19 [History] Sennosides-Docusate Sodium [Senokot-S] 1 tab PO DAILY 06/18/19 [History] calcitrioL [Calcitriol] 0.5 mcg PO MOWEFRSA 06/18/19 [History] hydrALAZINE HCL [Apresoline] 100 mg PO TID 06/18/19 [History] Prazosin HCl 4 mg PO TID 09/05/19 [History] Apixaban [Eliquis] 5 mg PO BID 03/04/21 [History] Carvedilol [Coreg] 12.5 mg PO BID #0 03/07/21 [Rx] Insuln Asp Prt/Insulin Aspart [NovoLOG MIX 70-30 VIAL] 4 unit SQ AC-LUNCH #0 vial 03/07/21 [Rx] Insuln Asp Prt/Insulin Aspart [NovoLOG MIX 70-30 VIAL] 10 unit SQ AC- BID@0700,1800 #0 03/07/21 [Rx] Follow up Appointment(s)/Referral(s): Skye Koenig MD [STAFF PHYSICIAN] - 1 Week (please call office on Tuesday to make appointment) Jack De Jesus MD [Primary Care Provider] - 3 Days (please call the office on Tuesday and make an appointment) Patient Instructions/Handouts: Chronic Kidney Disease (DC), Hypoglycemia in a Person with Diabetes (DC), Hypertensive Crisis (DC) Activity/Diet/Wound Care/Special Instructions: bmp - 3 days Discharge Disposition: HOME SELF-CARE
== END 2021-03-07 14:22 | disposition home or self-care (01) | DRG 638 ==
LOC: EC 17:37 → 3SCARD 21:06
PROVIDERS: ADMIT Hospitalist; ATTEND Hospitalist
DX: E11.649 Type 2 diabetes mellitus with hypoglycemia without coma (principal); I13.0 Hypertensive heart and chronic kidney disease with heart failure and stage 1 through stage 4 chronic kidney disease, or unspecified chronic kidney disease; I50.32 Chronic diastolic (congestive) heart failure; E11.51 Type 2 diabetes mellitus with diabetic peripheral angiopathy without gangrene; E11.319 Type 2 diabetes mellitus with unspecified diabetic retinopathy without macular edema; E11.22 Type 2 diabetes mellitus with diabetic chronic kidney disease; E11.42 Type 2 diabetes mellitus with diabetic polyneuropathy; Z79.4 Long term (current) use of insulin; N18.30 Chronic kidney disease, stage 3 unspecified; E11.36 Type 2 diabetes mellitus with diabetic cataract; Z89.412 Acquired absence of left great toe; Z89.422 Acquired absence of other left toe(s); Z89.421 Acquired absence of other right toe(s); Z20.822 Contact with and (suspected) exposure to COVID-19; I16.0 Hypertensive urgency; I25.10 Atherosclerotic heart disease of native coronary artery without angina pectoris; E78.5 Hyperlipidemia, unspecified; H91.91 Unspecified hearing loss, right ear; H26.9 Unspecified cataract; R91.8 Other nonspecific abnormal finding of lung field; I25.2 Old myocardial infarction; Z79.01 Long term (current) use of anticoagulants; Z79.82 Long term (current) use of aspirin; Z79.899 Other long term (current) drug therapy; Z86.14 Personal history of Methicillin resistant Staphylococcus aureus infection; Z86.19 Personal history of other infectious and parasitic diseases; Z86.718 Personal history of other venous thrombosis and embolism; Z87.19 Personal history of other diseases of the digestive system; Z87.448 Personal history of other diseases of urinary system; Z98.890 Other specified postprocedural states; Z88.1 Allergy status to other antibiotic agents; Z88.8 Allergy status to other drugs, medicaments and biological substances; Z82.49 Family history of ischemic heart disease and other diseases of the circulatory system
CPT/HCPCS: 36415; 70450; 71046; 72125; 80048; 80053; 80306; 80320; 81001; 84443; 84484; 85025; 85610; 85730; 87635; 93005; 96361; 96374; 96376; 99291

== ENCOUNTER → 2021-03-10 | Outpatient (CLI) | payer MEDICARE ==
[2021-03-11 19:21] LABS: African American GFR (CKD) 33.2 (60.0-200.0); Anion Gap 13.1 mmol/L (4.00-12.00); BUN/Creat Ratio 19.55 Ratio (12.00-20.00); Calcium 9.1 mg/dL (8.7-10.3); Carbon Dioxide 18.9 mmol/L (21.6-31.8); Non-African American GFR(CKD) 28.7 (60.0-200.0); Potassium 4.3 mmol/L (3.5-5.5)
== END | disposition home or self-care (01) ==
LOC: LABWHC1 09:33
PROVIDERS: ATTEND Hospitalist
DX: I16.0 Hypertensive urgency (principal); E16.2 Hypoglycemia, unspecified; R68.0 Hypothermia, not associated with low environmental temperature
CPT/HCPCS: 36415; 80048

== ENCOUNTER → 2021-05-22 | Outpatient (CLI) | payer MEDICARE ==
[2021-05-22 16:36] LABS: Chol/HDL Ratio 3.83; LDL Cholesterol,Calculated 66.4 mg/dL (0.0-131.0); VLDL Calculation 18.6 mg/dL (5.00-40.00)
== END | disposition home or self-care (01) ==
LOC: LABWHC1 08:26
PROVIDERS: ATTEND Internal Medicine Cardiovascular Disease
DX: E78.2 Mixed hyperlipidemia (principal)
CPT/HCPCS: 36415; 80061; 84450; 84460

== ENCOUNTER → 2021-06-09 | Outpatient (CLI) | payer MEDICARE ==
--- NOTE | 2021-06-09 15:54 | US ---
EXAMINATION TYPE: US kidneys/renal and bladder DATE OF EXAM: 06/09/2021 COMPARISON: NONE CLINICAL HISTORY: N18.3 Chronic kidney disease, stage III. CKD EXAM MEASUREMENTS: Right Kidney: 9.2 x 5.1 x 5.6 cm Left Kidney: 11.0 x 4.3 x 5.9 cm patient was scanned in wheelchair Right Kidney: No hydronephrosis or masses seen Left Kidney: No hydronephrosis or masses seen Bladder: not distended There is no evidence for hydronephrosis at this point in time. No nephrolithiasis is seen. No carley s are identified. IMPRESSION: No hydronephrosis.
== END | disposition home or self-care (01) ==
LOC: RADUSWWP 15:26
PROVIDERS: ATTEND Nurse Practitioner Family
DX: N18.30 Chronic kidney disease, stage 3 unspecified (principal)
CPT/HCPCS: 76770

== ENCOUNTER → 2021-06-25 | Outpatient (CLI) | payer MEDICARE ==
[2021-06-25 16:57] LABS: Hemoglobin A1C 7.1 % (4.0-6.0)
[2021-06-25 17:25] LABS: Albumin 3.7 g/dL (3.80-4.90); Albumin/Globulin Ratio 1.61 (1.60-3.17); Anion Gap 9.5 mmol/L (4.00-12.00); BUN/Creat Ratio 20.5 Ratio (12.00-20.00); Calcium 9.4 mg/dL (8.7-10.3); Carbon Dioxide 23.5 mmol/L (21.6-31.8); Chol/HDL Ratio 4.12; Globulin 2.3 g/dL (1.6-3.3); LDL Cholesterol,Calculated 54.8 mg/dL (0.0-131.0); Non-African American GFR(CKD) 31.9 (60.0-200.0); Potassium 4.2 mmol/L (3.5-5.5); Total Bilirubin 0.4 mg/dL (0.2-1.2); VLDL Calculation 26.2 mg/dL (5.00-40.00)
== END | disposition home or self-care (01) ==
LOC: LABWHC1 08:03
PROVIDERS: ATTEND Internal Medicine
DX: E78.5 Hyperlipidemia, unspecified (principal); E11.9 Type 2 diabetes mellitus without complications; Z79.4 Long term (current) use of insulin
CPT/HCPCS: 36415; 80053; 80061; 83036

== ENCOUNTER → 2021-09-08 | Outpatient (CLI) | payer MEDICARE ==
[2021-09-08 15:55] LABS: Basophils # (A) 0.03 X 10*3/uL (0.00-0.10); Basophils % (A) 0.5 %; Eosinophils # (A) 0.35 X 10*3/uL (0.04-0.35); Eosinophils % (A) 6.1 %; HCT 36.7 % (39.6-50.0); HGB 11.6 g/dL (13.0-17.0); Lymphocytes # (A) 0.39 X 10*3/uL (0.90-5.00); Lymphocytes % (A) 6.8 %; MCH 29.1 pg (27.0-32.0); MCHC 31.6 g/dL (32.0-37.0); Mean Platelet Volume 12.7 fL (9.5-12.2); Monocytes # (A) 0.34 X 10*3/uL (0.20-1.00); Monocytes % (A) 5.9 %; Neutrophils # (A) 4.61 X 10*3/uL (1.80-7.70); Neutrophils % (A) 80.4 %; Platelet Count 130 X 10*3/uL (140-440); RBC 3.99 X 10*6/uL (4.40-5.60); RDW 13.4 % (11.5-14.5); WBC 5.74 X 10*3/uL (4.50-10.00)
[2021-09-08 21:10] LABS: % Iron Saturation 30.57 (15.00-50.00); African American GFR (CKD) 35.5 (60.0-200.0); Albumin 3.7 g/dL (3.8-4.9); Anion Gap 14.4 mmol/L (4.00-12.00); BUN/Creat Ratio 15.89 Ratio (12.00-20.00); Blood Urea Nitrogen 32.9 mg/dL (9.0-27.0); Calcium 9.2 mg/dL (8.7-10.3); Carbon Dioxide 19.6 mmol/L (21.6-31.8); Magnesium 1.9 mg/dL (1.5-2.4); Non-African American GFR(CKD) 30.6 (60.0-200.0); Phosphorus 3.9 mg/dL (2.4-5.1); Potassium 4.2 mmol/L (3.5-5.5); Uric Acid 6.5 mg/dL (3.7-8.7)
== END | disposition home or self-care (01) ==
LOC: LABWHC1 08:56
PROVIDERS: ATTEND Nurse Practitioner Family
DX: N18.32 Chronic kidney disease, stage 3b (principal); M10.9 Gout, unspecified; N39.0 Urinary tract infection, site not specified; N25.81 Secondary hyperparathyroidism of renal origin; D64.9 Anemia, unspecified; E55.9 Vitamin D deficiency, unspecified
CPT/HCPCS: 36415; 80048; 82040; 82306; 82728; 83540; 83550; 83735; 83970; 84100; 84550; 85025

== ENCOUNTER 2022-01-27 16:09 | Emergency (ER) | payer MEDICARE ==
[2022-01-27] MEDS ORDERED: ACETAMINOPHEN TAB 325 MG TAB PO STA (16:13)
[2022-01-27] MEDS ORDERED: IBUPROFEN 600 MG TAB PO STA (16:13)
[2022-01-27] MEDS ORDERED: hydrALAZINE HCL 20 MG/ML 1 ML VIAL IVP STA ×2 (16:44→17:16)
--- NOTE | 2022-01-27 16:44 | ED ---
General Adult HPI - General Chief complaint: Shortness of Breath Stated complaint: Cough/Hypertension Time Seen by Provider: 01/27/22 16:09 Source: patient, EMS, RN notes reviewed, old records reviewed Mode of arrival: EMS Limitations: no limitations - History of Present Illness Initial comments: This is a 76-year-old male who presents emergency Department with a past medical history significant for COPD diabetes and congestive heart failure. Patient states the last 3 days she's been coughing and becoming more more short of breath. Patient states he feels as though he has some sputum to cough up and respond unable to get the sputum up. Patient states he has been vaccinated and gotten a booster for COVID. Patient denies any chest pain patient denies any back pain. Patient states he does not believe he has a fever has not had any chills. Patient denies any lightheadedness or dizziness. Patient denies any numbness or weakness per patient denies any recent injury or trauma. Patient denies any abdominal pain patient denies nausea vomiting or diarrhea. Patient denies any increased swelling to his legs or calf tenderness. - Related Data Home Medications Medication Instructions Recorded Confirmed Aspirin EC [Ecotrin Low Dose] 81 mg PO DAILY@79906/18/19 01/27/22 Multivitamin/Iron/Folic Acid 1 tab PO DAILY@79906/18/19 01/27/22 [Centrum Complete Multivit Tab] Sennosides-Docusate Sodium 1 tab PO DAILY@79906/18/19 01/27/22 [Senokot-S] calcitrioL [Calcitriol] 0.5 mcg PO MOWEFR@79906/18/19 01/27/22 hydrALAZINE HCL [Apresoline] 100 mg PO TID-W/MEALS 06/18/19 01/27/22 Prazosin HCl 4 mg PO TID@08,1499,199909/05/19 01/27/22 Apixaban [Eliquis] 5 mg PO BID@03/04/21 01/27/22 Atorvastatin [Lipitor] 40 mg PO HS@199901/27/22 01/27/22 Carvedilol [Coreg] 25 mg PO BID-W/MEALS 01/27/22 01/27/22 Cholecalciferol (Vitamin D3) 125 mcg PO DAILY@79901/27/2222 [Vitamin D3 (125 MCG = 5,000 IU)] Insulin NPH Hum/Reg Insulin Hm 27 unit SQ W/SUPPER 01/27/22 01/27/22 [humuLIN 70/30 Kwikpen] Insulin NPH Hum/Reg Insulin Hm 35 unit SQ W/BRKFST 01/27/22 01/27/22 [humuLIN 70/30 Kwikpen] Isosorbide Mononitrate ER [Imdur] 60 mg PO DAILY@0800 01/27/22 01/27/22 Tamsulosin [Flomax] 0.4 mg PO HS@199901/27/22 01/27/22 cloNIDine HCL [Catapres] 0.2 mg PO TID@0800,1499,199901/27/22 01/27/22 Allergies Allergy/AdvReac Type Severity Reaction Status Date / Time amlodipine Allergy Anaphylaxis Verified 01/27/22 17:34 lisinopril Allergy tongue Verified 01/27/22 17:34 swelling vancomycin Allergy Unknown Verified 01/27/22 17:34 Review of Systems ROS Statement: Those systems with pertinent positive or pertinent negative responses have been documented in the HPI. ROS Other: All systems not noted in ROS Statement are negative. Past Medical History Past Medical History: Heart Failure, Diabetes Mellitus, Deep Vein Thrombosis (DVT), Hyperlipidemia, Hypertension, Syncope Additional Past Medical History / Comment(s): pt wants flu vaccine while here. other hx:per pt's "xray noted lung nodules". 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, L foot gr toe, 3rd &2nd toe amputated; Rfoot 3rd toe amputated, Bypass in Bilat legs, eulogio knee sx(cartilage), lt arm picc line.since removed, x3 sx total facial plastic sx and grafting done area under lt eye d/t injury, Ackerman placement.-rt upper chest Past Anesthesia/Blood Transfusion Reactions: Postoperative Nausea & Vomiting (PONV) Additional Past Anesthesia/Blood Transfusion Reaction / Comment(s): never recieved blood Past Psychological History: No Psychological Hx Reported Smoking Status: Never smoker Past Alcohol Use History: None Reported Past Drug Use History: None Reported - Past Family History Father Family Medical History: Deep Vein Thrombosis (DVT) Additional Family Medical History / Comment(s): had valve sx- a week later from complications Mother Family Medical History: Congestive Heart Failure (CHF) Additional Family Medical History / Comment(s): phlebitis General Exam - General Exam Comments Initial Comments: GENERAL: Patient is well-developed and well-nourished. Patient is nontoxic and well- hydrated and is in mild distress. I think the patient's oral temperature was 100.1 ENT: Neck is soft and supple. No significant lymphadenopathy is noted. Oropharynx is clear. Moist mucous membranes. Neck has full range of motion without eliciting any pain. EYES: The sclera were anicteric and conjunctiva were pink and moist. Extraocular movements were intact and pupils were equal round and reactive to light. Eyelids were unremarkable. PULMONARY: Unlabored respirations. Good breath sounds bilaterally. No audible rales rhonchi or wheezing was noted. CARDIOVASCULAR: There is a regular rate and rhythm without any murmurs gallops or rubs. ABDOMEN: Soft and nontender with normal bowel sounds. SKIN: Skin is clear with no lesions or rashes and otherwise unremarkable. NEUROLOGIC: Patient is alert and oriented x3. Cranial nerves II through XII are grossly intact. Motor and sensory are also intact. Normal speech, volume and content. Symmetrical smile. MUSCULOSKELETAL: Normal extremities with adequate strength and full range of motion. LYMPHATICS: No significant lymphadenopathy is noted PSYCHIATRIC: Normal psychiatric evaluation. Limitations: no limitations Course Vital Signs 01/27/22 01/27/22 01/27/22 16:13 17:10 18:37 Temperature 100.1 F H 99.1 F Pulse Rate 86 78 75 Respiratory 20 18 18 Rate Blood Pressure 226/111 193/102 156/87 O2 Sat by Pulse 98 96 97 Oximetry Medical Decision Making - Medical Decision Making EKG shows sinus rhythm at 85 bpm KS interval 198 QRSs 116 QT interval 377 QTC is 419. Patient's EKG shows no ST segment elevation. Patient has bibasilar infiltrates. Patient's COVID Positive. Patient got monoclonal antibodies. Patient got Decadron Patient will follow-up the primary medical care doctor. - Lab Data Result diagrams: 01/27/22 16:44 01/27/22 16:44 Lab Results 01/27/22 01/27/22 01/27/22 Range/Units 16:44 16:44 16:44 WBC 3.7 L (3.8-10.6) k/uL RBC 4.28 L (4.30-5.90) m/uL Hgb 12.8 L (13.0-17.5) gm/dL Hct 38.0 L (39.0-53.0) % MCV 88.7 (80.0-100.0) fL MCH 29.9 (25.0-35.0) pg MCHC 33.7 (31.0-37.0) g/dL RDW 14.4 (11.5-15.5) % Plt Count 120 L (150-450) k/uL MPV 9.1 Neutrophils % (Manual) 77 % Lymphocytes % (Manual) 11 % Monocytes % (Manual) 11 % Eosinophils % (Manual) 1 % Neutrophils # (Manual) 2.85 (1.3-7.7) k/uL Lymphocytes # (Manual) 0.41 L (1.0-4.8) k/uL Monocytes # (Manual) 0.41 (0-1.0) k/uL Eosinophils # (Manual) 0.04 (0-0.7) k/uL Nucleated RBCs 0 (0-0) /100 WBC Manual Slide Review Performed Toxic Vacuolation Present PT 10.8 (9.0-12.0) sec INR 1.0 (<1.2) APTT 32.2 H (22.0-30.0) sec Sodium 135 L (137-145) mmol/L Potassium 4.5 (3.5-5.1) mmol/L Chloride 105 (98-107) mmol/L Carbon Dioxide 21 L (22-30) mmol/L Anion Gap 9 mmol/L BUN 43 H (9-20) mg/dL Creatinine 2.26 H (0.66-1.25) mg/dL Est GFR (CKD-EPI)AfAm 32 (>60 ml/min/1.73 sqM) Est GFR (CKD-EPI)NonAf 28 (>60 ml/min/1.73 sqM) Glucose 185 H (74-99) mg/dL Plasma Lactic Acid Pablito (0.7-2.0) mmol/L Calcium 8.8 (8.4-10.2) mg/dL Total Bilirubin 0.9 (0.2-1.3) mg/dL AST 34 (17-59) U/L ALT 31 (4-49) U/L Alkaline Phosphatase 83 (38-126) U/L Total Protein 6.6 (6.3-8.2) g/dL Albumin 3.8 (3.5-5.0) g/dL Coronavirus (PCR) (Not Detectd) 01/27/22 01/27/22 Range/Units 16:44 Unknown WBC (3.8-10.6) k/uL RBC (4.30-5.90) m/uL Hgb (13.0-17.5) gm/dL Hct (39.0-53.0) % MCV (80.0-100.0) fL MCH (25.0-35.0) pg MCHC (31.0-37.0) g/dL RDW (11.5-15.5) % Plt Count (150-450) k/uL MPV Neutrophils % (Manual) % Lymphocytes % (Manual) % Monocytes % (Manual) % Eosinophils % (Manual) % Neutrophils # (Manual) (1.3-7.7) k/uL Lymphocytes # (Manual) (1.0-4.8) k/uL Monocytes # (Manual) (0-1.0) k/uL Eosinophils # (Manual) (0-0.7) k/uL Nucleated RBCs (0-0) /100 WBC Manual Slide Review Toxic Vacuolation PT (9.0-12.0) sec INR (<1.2) APTT (22.0-30.0) sec Sodium (137-145) mmol/L Potassium (3.5-5.1) mmol/L Chloride (98-107) mmol/L Carbon Dioxide (22-30) mmol/L Anion Gap mmol/L BUN (9-20) mg/dL Creatinine (0.66-1.25) mg/dL Est GFR (CKD-EPI)AfAm (>60 ml/min/1.73 sqM) Est GFR (CKD-EPI)NonAf (>60 ml/min/1.73 sqM) Glucose (74-99) mg/dL Plasma Lactic Acid Pablito 0.8 (0.7-2.0) mmol/L Calcium (8.4-10.2) mg/dL Total Bilirubin (0.2-1.3) mg/dL AST (17-59) U/L ALT (4-49) U/L Alkaline Phosphatase (38-126) U/L Total Protein (6.3-8.2) g/dL Albumin (3.5-5.0) g/dL Coronavirus (PCR) Detected A (Not Detectd) Disposition Clinical Impression: Pneumonia due to COVID-19 virus Disposition: HOME SELF-CARE Condition: Good Instructions (If sedation given, give patient instructions): Coronavirus Disease 2019 (COVID-19) Is patient prescribed a controlled substance at d/c from ED?: No Referrals: Jack De Jesus MD [Primary Care Provider] - 1-2 days Time of Disposition: 18:57
[2022-01-27] MEDS: SODIUM CHLORIDE 0.9% 500 ML 500 ML IV SCH ×2 (16:48→17:22)
[2022-01-27 17:03] LABS: Albumin 3.8 g/dL (3.5-5.0); Calcium 8.8 mg/dL (8.4-10.2); Potassium 4.5 mmol/L (3.5-5.1); Total Bilirubin 0.9 mg/dL (0.2-1.3); Total Protein 6.6 g/dL (6.3-8.2)
[2022-01-27 17:06] LABS: Partial Thromboplastin Time 32.2 sec (22.0-30.0); Prothrombin Time 10.8 sec (9.0-12.0)
[2022-01-27 17:09] LABS: HGB 12.8 gm/dL (13.0-17.5); MCH 29.9 pg (25.0-35.0); MCHC 33.7 g/dL (31.0-37.0); MCV 88.7 fL (80.0-100.0); Mean Platelet Volume 9.1; Platelet Count 120 k/uL (150-450); RBC 4.28 m/uL (4.30-5.90); RDW 14.4 % (11.5-15.5); WBC 3.7 k/uL (3.8-10.6)
[2022-01-27 18:01] LABS: Eosinophils # (M) 0.04 k/uL (0-0.7); Lymphocytes # (M) 0.41 k/uL (1.0-4.8); Monocytes # (M) 0.41 k/uL (0-1.0); Neutrophils # (M) 2.85 k/uL (1.3-7.7); Neutrophils % (M) 77 %; Nucleated Red Blood Cells 0 /100 WBC (0-0); Total Cells Counted 100; Toxic Vacuolation Present
--- NOTE | 2022-01-27 18:05 | XR ---
EXAMINATION TYPE: XR chest 2V DATE OF EXAM: 01/27/2022 COMPARISON: 03/04/2021 HISTORY: Fever TECHNIQUE: Frontal and lateral views of the chest are obtained. FINDINGS: The lungs are hypoaerated. There is mild left greater than right perihilar and bibasilar h azy/streaky opacities. No focal consolidation, pleural effusion, or pneumothorax seen. The cardiac s ilhouette size is within normal limits. The osseous structures are intact. IMPRESSION: Mild bibasilar atelectasis versus infiltrates.
[2022-01-27 18:40] VITALS: TEMP 99.1
[2022-01-27] MEDS ORDERED: SODIUM CHLORIDE 0.9% 50 ML IVPB ONE (19:15)
[2022-01-27] MEDS ORDERED: SOTROVIMAB (EUA) 500 MG in SODIUM CHLORIDE 0.9% 100 ML IVPB ONE (19:30)
[2022-01-27 22:42] VITALS: BP 175/92; PULSE 76; RESP 18
== END 2022-01-27 22:41 | disposition home or self-care (01) ==
LOC: EC 16:09
DX: U07.1 COVID-19 (principal); J12.82 Pneumonia due to coronavirus disease 2019; E11.22 Type 2 diabetes mellitus with diabetic chronic kidney disease; E11.40 Type 2 diabetes mellitus with diabetic neuropathy, unspecified; I13.0 Hypertensive heart and chronic kidney disease with heart failure and stage 1 through stage 4 chronic kidney disease, or unspecified chronic kidney disease; I50.9 Heart failure, unspecified; N18.30 Chronic kidney disease, stage 3 unspecified; E78.5 Hyperlipidemia, unspecified; Z79.4 Long term (current) use of insulin; Z79.01 Long term (current) use of anticoagulants; Z79.82 Long term (current) use of aspirin; Z79.899 Other long term (current) drug therapy; Z86.718 Personal history of other venous thrombosis and embolism
CPT/HCPCS: 36415; 71046; 80053; 83605; 84484; 85025; 85610; 85730; 87040; 87635; 93005; 96374; 96376; 99285

== ENCOUNTER 2022-01-28 08:39 | Inpatient (IN) | payer MEDICARE ==
[2022-01-28] MEDS ORDERED: ONDANSETRON 4 MG/2 ML VIAL IVP STA (09:11)
[2022-01-28] MEDS ORDERED: SODIUM CHLORIDE 0.9% 500 ML 500 ML IV STA (09:11)
[2022-01-28] MEDS ORDERED: ACETAMINOPHEN TAB 325 MG TAB PO STA (09:14)
[2022-01-28 09:23] LABS: Basophils % (A) 0 %; Eosinophils % (A) 0 %; HCT 37.4 % (39.0-53.0); HGB 12.9 gm/dL (13.0-17.5); Lymphocytes # (A) 0.4 k/uL (1.0-4.8); Lymphocytes % (A) 7 %; MCH 30.4 pg (25.0-35.0); MCHC 34.4 g/dL (31.0-37.0); MCV 88.2 fL (80.0-100.0); Mean Platelet Volume 9.1; Monocytes # (A) 0.3 k/uL (0-1.0); Monocytes % (A) 5 %; Neutrophils # (A) 4.3 k/uL (1.3-7.7); Neutrophils % (A) 84 %; Platelet Count 124 k/uL (150-450); RBC 4.24 m/uL (4.30-5.90); RDW 14.2 % (11.5-15.5); WBC 5.1 k/uL (3.8-10.6)
[2022-01-28 09:37] LABS: Albumin 3.5 g/dL (3.5-5.0); Calcium 8.6 mg/dL (8.4-10.2); Magnesium 1.7 mg/dL (1.6-2.3); Potassium 4.1 mmol/L (3.5-5.1); Total Bilirubin 0.8 mg/dL (0.2-1.3); Total Protein 6.4 g/dL (6.3-8.2)
--- NOTE | 2022-01-28 09:38 | ED ---
General Adult HPI - General Chief complaint: Nausea/Vomiting/Diarrhea Stated complaint: Weakness Time Seen by Provider: 01/28/22 08:47 Source: patient, EMS, RN notes reviewed Mode of arrival: EMS Limitations: no limitations - History of Present Illness Initial comments: This a 76-year-old male presents emergency Department with chief complaint of generalized weakness. Patient states she does not feel well he states his diagnosed with covid 19 yesterday but is having increasing in shortness breath, chest tightness, nausea vomiting. Patient states he feels weak he was given monoclonal antibodies yesterday, given steroids. He is a known diabetic. Patient states he has not taken any recent medications because he's been throwing up. He has no localized abdominal pain. Does wear mild headache. - Related Data Home Medications Medication Instructions Recorded Confirmed Aspirin EC [Ecotrin Low Dose] 81 mg PO DAILY@0800 06/18/19 01/28/22 Multivitamin/Iron/Folic Acid 1 tab PO DAILY@79906/18/19 01/28/22 [Centrum Complete Multivit Tab] Sennosides-Docusate Sodium 1 tab PO DAILY@0800 06/18/19 01/28/22 [Senokot-S] calcitrioL [Calcitriol] 0.5 mcg PO MOWEFR@79906/18/19 01/28/22 hydrALAZINE HCL [Apresoline] 100 mg PO TID-W/MEALS 06/18/19 01/28/22 Prazosin HCl 4 mg PO TID@0800,1499,199909/05/19 01/28/22 Apixaban [Eliquis] 5 mg PO BID@08,199903/04/21 01/28/22 Atorvastatin [Lipitor] 40 mg PO HS@199901/27/22 01/28/22 Carvedilol [Coreg] 25 mg PO BID-W/MEALS 01/27/22 01/28/22 Cholecalciferol (Vitamin D3) 125 mcg PO DAILY@0800 01/27/22 01/28/22 [Vitamin D3 (125 MCG = 5,000 IU)] Insulin NPH Hum/Reg Insulin Hm 27 unit SQ W/SUPPER 01/27/22 01/28/22 [humuLIN 70/30 Kwikpen] Insulin NPH Hum/Reg Insulin Hm 35 unit SQ W/BRKFST 01/27/22 01/28/22 [humuLIN 70/30 Kwikpen] Isosorbide Mononitrate ER [Imdur] 60 mg PO DAILY@0800 01/27/22 01/28/22 Tamsulosin [Flomax] 0.4 mg PO HS@199901/27/22 01/28/22 cloNIDine HCL [Catapres] 0.2 mg PO TID@0800,1500,199901/27/22 01/28/22 Previous Rx's Medication Instructions Recorded Dexamethasone [Decadron] 6 mg PO DAILY #5 tablet 01/27/22 Allergies Allergy/AdvReac Type Severity Reaction Status Date / Time amlodipine Allergy Anaphylaxis Verified 01/28/22 09:26 lisinopril Allergy tongue Verified 01/28/22 09:26 swelling vancomycin Allergy seizure Verified 01/28/22 09:26 like activity Review of Systems ROS Statement: Those systems with pertinent positive or pertinent negative responses have been documented in the HPI. ROS Other: All systems not noted in ROS Statement are negative. Past Medical History Past Medical History: Heart Failure, Diabetes Mellitus, Deep Vein Thrombosis (DVT), Hyperlipidemia, Hypertension, Syncope Additional Past Medical History / Comment(s): -8 pt wants flu vaccine while here. other hx:per pt's "xray noted lung nodules". 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, L foot gr toe, 3rd &2nd toe amputated; Rfoot 3rd toe amputated, Bypass in Bilat legs, eulogio knee sx(cartilage), lt arm picc line.since removed, x3 sx total facial plastic sx and grafting done area under lt eye d/t injury, Ackerman placement.-rt upper chest Past Anesthesia/Blood Transfusion Reactions: Postoperative Nausea & Vomiting (PONV) Additional Past Anesthesia/Blood Transfusion Reaction / Comment(s): never recieved blood Past Psychological History: No Psychological Hx Reported Smoking Status: Never smoker Past Alcohol Use History: None Reported Past Drug Use History: None Reported - Past Family History Father Family Medical History: Deep Vein Thrombosis (DVT) Additional Family Medical History / Comment(s): had valve sx- a week later from complications Mother Family Medical History: Congestive Heart Failure (CHF) Additional Family Medical History / Comment(s): phlebitis General Exam Limitations: no limitations General appearance: alert, in no apparent distress Head exam: Present: atraumatic, normocephalic, normal inspection Eye exam: Present: normal appearance, PERRL, EOMI. Absent: scleral icterus, conjunctival injection, periorbital swelling ENT exam: Present: normal exam, normal oropharynx, mucous membranes moist Neck exam: Present: normal inspection, full ROM. Absent: tenderness, meningismus, lymphadenopathy Respiratory exam: Present: wheezes. Absent: normal lung sounds bilaterally, respiratory distress, rales, rhonchi, stridor Cardiovascular Exam: Present: regular rate, normal rhythm, normal heart sounds. Absent: systolic murmur, diastolic murmur, rubs, gallop, clicks GI/Abdominal exam: Present: soft, normal bowel sounds. Absent: distended, tenderness, guarding, rebound, rigid Back exam: Absent: CVA tenderness (R), CVA tenderness (L) Neurological exam: Present: alert Course Vital Signs 01/28/22 01/28/22 08:42 09:52 Temperature 99.7 F H Pulse Rate 92 84 Respiratory 20 18 Rate Blood Pressure 197/98 175/88 O2 Sat by Pulse 97 99 Oximetry Medical Decision Making - Medical Decision Making 76-year-old presented for worsening symptoms. Patient is: 19 positive. Patient's troponin is elevated, trending upward. I did discuss case with Dr. Herrera concern for: Myocarditis. Patient will be admitted with infectious disease consult. - Lab Data Result diagrams: 01/28/22 09:12 01/28/22 09:12 Lab Results 01/28/22 01/28/22 01/28/22 Range/Units 09:12 09:12 09:12 WBC 5.1 (3.8-10.6) k/uL RBC 4.24 L (4.30-5.90) m/uL Hgb 12.9 L (13.0-17.5) gm/dL Hct 37.4 L (39.0-53.0) % MCV 88.2 (80.0-100.0) fL MCH 30.4 (25.0-35.0) pg MCHC 34.4 (31.0-37.0) g/dL RDW 14.2 (11.5-15.5) % Plt Count 124 L (150-450) k/uL MPV 9.1 Neutrophils % 84 % Lymphocytes % 7 % Monocytes % 5 % Eosinophils % 0 % Basophils % 0 % Neutrophils # 4.3 (1.3-7.7) k/uL Lymphocytes # 0.4 L (1.0-4.8) k/uL Monocytes # 0.3 (0-1.0) k/uL Eosinophils # 0.0 (0-0.7) k/uL Basophils # 0.0 (0-0.2) k/uL PT 10.7 (9.0-12.0) sec INR 1.0 (<1.2) APTT 35.1 H (22.0-30.0) sec Sodium 135 L (137-145) mmol/L Potassium 4.1 (3.5-5.1) mmol/L Chloride 107 (98-107) mmol/L Carbon Dioxide 22 (22-30) mmol/L Anion Gap 6 mmol/L BUN 36 H (9-20) mg/dL Creatinine 2.08 H (0.66-1.25) mg/dL Est GFR (CKD-EPI)AfAm 35 (>60 ml/min/1.73 sqM) Est GFR (CKD-EPI)NonAf 30 (>60 ml/min/1.73 sqM) Glucose 133 H (74-99) mg/dL Plasma Lactic Acid Pablito (0.7-2.0) mmol/L Calcium 8.6 (8.4-10.2) mg/dL Magnesium 1.7 (1.6-2.3) mg/dL Total Bilirubin 0.8 (0.2-1.3) mg/dL AST 34 (17-59) U/L ALT 30 (4-49) U/L Alkaline Phosphatase 78 (38-126) U/L Troponin I (0.000-0.034) ng/mL Total Protein 6.4 (6.3-8.2) g/dL Albumin 3.5 (3.5-5.0) g/dL 01/28/22 01/28/22 Range/Units 09:12 09:12 WBC (3.8-10.6) k/uL RBC (4.30-5.90) m/uL Hgb (13.0-17.5) gm/dL Hct (39.0-53.0) % MCV (80.0-100.0) fL MCH (25.0-35.0) pg MCHC (31.0-37.0) g/dL RDW (11.5-15.5) % Plt Count (150-450) k/uL MPV Neutrophils % % Lymphocytes % % Monocytes % % Eosinophils % % Basophils % % Neutrophils # (1.3-7.7) k/uL Lymphocytes # (1.0-4.8) k/uL Monocytes # (0-1.0) k/uL Eosinophils # (0-0.7) k/uL Basophils # (0-0.2) k/uL PT (9.0-12.0) sec INR (<1.2) APTT (22.0-30.0) sec Sodium (137-145) mmol/L Potassium (3.5-5.1) mmol/L Chloride (98-107) mmol/L Carbon Dioxide (22-30) mmol/L Anion Gap mmol/L BUN (9-20) mg/dL Creatinine (0.66-1.25) mg/dL Est GFR (CKD-EPI)AfAm (>60 ml/min/1.73 sqM) Est GFR (CKD-EPI)NonAf (>60 ml/min/1.73 sqM) Glucose (74-99) mg/dL Plasma Lactic Acid Pablito 0.8 (0.7-2.0) mmol/L Calcium (8.4-10.2) mg/dL Magnesium (1.6-2.3) mg/dL Total Bilirubin (0.2-1.3) mg/dL AST (17-59) U/L ALT (4-49) U/L Alkaline Phosphatase (38-126) U/L Troponin I 0.137 H* (0.000-0.034) ng/mL Total Protein (6.3-8.2) g/dL Albumin (3.5-5.0) g/dL Disposition Clinical Impression: Elevated troponin, COVID-19, Weakness, Nausea & vomiting Disposition: ADMITTED IP TO THIS HOSP Condition: Fair Referrals: Jack De Jesus MD [Primary Care Provider] - 1-2 days
[2022-01-28 09:45] LABS: Partial Thromboplastin Time 35.1 sec (22.0-30.0); Prothrombin Time 10.7 sec (9.0-12.0)
--- NOTE | 2022-01-28 10:05 | XR ---
EXAMINATION TYPE: XR chest 2V DATE OF EXAM: 01/28/2022 COMPARISON: 01/27/2022 TECHNIQUE: PA and lateral views submitted. HISTORY: Shortness of breath FINDINGS: Limited inspiration with the interstitial pattern. There is right basilar subsegmental consolidation. Prominence of the right hilum noted. IMPRESSION: 1. Basilar infiltrates correlate for pneumonia. Prominent right hilum could reflect patient rotation. Correlate clinically. CT of the chest could be performed if concern for mass or adenopathy.
[2022-01-28] MEDS ORDERED: NITROGLYCERIN SL TABS 0.4 MG TAB SUBLINGUAL PRN (11:21)
[2022-01-28] MEDS ORDERED: ONDANSETRON 4 MG/2 ML VIAL IVP PRN (11:23)
[2022-01-28] MEDS ORDERED: LACTULOSE 20 GM/30 ML CUP PO PRN (12:18)
[2022-01-28] MEDS ORDERED: NALOXONE 0.4 MG/ML 1 ML VIAL IV PRN (12:18)
[2022-01-28] MEDS ORDERED: LORazepam 0.5 MG TAB PO PRN (12:18)
[2022-01-28] MEDS ORDERED: MELATONIN 3 MG TABLET PO PRN (12:18)
[2022-01-28] MEDS ORDERED: CALCIUM CARBONATE 500 MG CHEWABLE PO PRN (12:18)
--- NOTE | 2022-01-28 13:50 | P.HPIM ---
History of Present Illness H&P Date: 01/28/22 Chief Complaint: Nausea vomiting History of presenting complaint: This is a pleasant 76-year-old patient who follows with Dr. Jack De Jesus. Chronic stable medical conditions include diabetes mellitus type 2 on insulin, causing peripheral neuropathy and diabetic retinopathy, hypertension, hyperlipidemia, chronic kidney disease stage III, CHF from diastolic dysfunction, severe peripheral arterial disease, coronary artery disease not a candidate for surgical intervention, essential hypertension. Poor vision in left eye Patient has not been feeling well for a week. He's had some cough with some clear sputum. Some shortness of breath. Unable to expectorate. Patient received the COVID-19 vaccine and booster. Just not feeling well. Had some fever. Some diarrhea. Tired rundown. Started out with nausea vomiting yesterday. Came to the ER yesterday. And were discharged home. Started having more nausea vomiting at home. Tired rundown. Decided to come back in. Did have a positive troponin. Review of systems: GEN.: Decreased appetite fever EYES: None HEENT: Decreased vision in the left eye NECK: None RESPIRATORY: As above CARDIOVASCULAR: None GASTROINTESTINAL: As above GENITOURINARY: None MUSCULOSKELETAL: Occasional pain in the left leg stump LYMPHATICS: None HEMATOLOGICAL: None PSYCHIATRY: Slightly anxious NEUROLOGICAL: No focal symptoms. No seizure activity. Past medical history: diabetes mellitus type 2 on insulin, causing peripheral neuropathy and diabetic retinopathy, hypertension, hyperlipidemia, chronic kidney disease stage III, CHF from diastolic dysfunction, severe peripheral arterial disease, coronary artery disease not a candidate for surgical intervention, essential hypertension. 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 No alcohol or smoking history. Family history: DVT Physical examination: VITAL SIGNS: [99.7, 92, 20, 175/88, 97% room air GENERAL: BMI 27.5,'s sitting up in bed, tired. EYES: Pupils equal. Conjunctiva normal. HEENT: External appearance of nose and ears normal, oral cavity grossly normal. NECK: JVD not raised; masses not palpable. HEART: First and second heart sounds are normal; no edema. LUNGS: Respiratory rate normal; decreased breath sounds. ABDOMEN: Soft, nontender, liver spleen not palpable, no masses palpable. PSYCH: [Alert and oriented x3; mood and affect anxious l. MUSCULOSKELETAL:No Clubbing/cyanosis;muscles-grossly intact NEUROLOGICAL: Cranial nerves grossly intact; no facial asymmetry, power and sensation grossly intact. EXTREMITIES: Left above amputation LYMPHATICS: No lymph nodes palpable in the axilla and neck INVESTIGATIONS, reviewed in the clinical context: White count 5.1 hemoglobin 12.9 platelets 124 sodium 135 potassium 4.1 BUN 36 creatinine 2.08 Troponin I 0.016 0.137, 0.143 COVID 19 PCR: Detected EKG tracing personally reviewed by me-sinus rhythm, ST segment depression in inferolateral leads Chest x-ray film personally reviewed by me-some infiltrates Assessment and plan: -Acute COVID-19 myocarditis. Also note that patient has CK D and troponin will be elevated. That is some rise in troponin. Telemetry. Consult cardiology. -COVID-19 pneumonitis in a patient who did receive the vaccine in the posterior. Pulse ox 97% on room air. No steroids indicated -Clinical dehydration from nausea vomiting IV fluids -Diabetes mellitus type 2, chronically on insulin causing peripheral neuropathy, diabetic retinopathy Cutback on scheduled dose of insulin. Follow Accu-Cheks and sliding scale. -Essential hypertension Continue with Coreg, Catapres, hydralazine, Minipress -Hyperlipidemia Continue with Lipitor -Chronic kidney disease stage III from diabetic nephropathy and hypertensive nephrosclerosis Follow renal function -Chronic congestive heart failure from diastolic dysfunction EF 50-55% Follow fluid status -Severe peripheral arterial disease Continue with aspirin -Coronary artery disease not a candidate for surgical intervention Continue with Coreg, Lipitor, Imdur -Decreased hearing in the right ear -Decreased vision in the left eye chronic -Left above-knee amputation IV fluids. Cutback on scheduled insulin. Follow Accu-Cheks. Telemetry. Cardiac consultation. Resume home medications. Care was discussed with the patient. Ground diet. Get ID opinion. Given the complexity and severity of patient's condition expect the patient to be in the hospital at least for 2 overnights Past Medical History Past Medical History: Heart Failure, Diabetes Mellitus, Deep Vein Thrombosis (D VT), Hyperlipidemia, Hypertension, Syncope Additional Past Medical History / Comment(s): pt wants flu vaccine while here. other hx:per pt's "xray noted lung nodules". 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, L foot gr toe, 3rd &2nd toe amputated; Rfoot 3rd toe amputated, Bypass in Bilat legs, eulogio knee sx(cartilage), lt arm picc line.since removed, x3 sx total facial plastic sx and grafting done area under lt eye d/t injury, Ackerman placement.-rt upper chest Past Anesthesia/Blood Transfusion Reactions: Postoperative Nausea & Vomiting (PONV) Additional Past Anesthesia/Blood Transfusion Reaction / Comment(s): never recieved blood Past Psychological History: No Psychological Hx Reported Smoking Status: Never smoker Past Alcohol Use History: None Reported Past Drug Use History: None Reported - Past Family History Father Family Medical History: Deep Vein Thrombosis (DVT) Additional Family Medical History / Comment(s): had valve sx- a week later from complications Mother Family Medical History: Congestive Heart Failure (CHF) Additional Family Medical History / Comment(s): phlebitis Medications and Allergies Home Medications Medication Instructions Recorded Confirmed Type Aspirin EC [Ecotrin Low Dose] 81 mg PO DAILY@79906/18/19 01/28/22 History Multivitamin/Iron/Folic Acid 1 tab PO DAILY@79906/18/19 01/28/22 History [Centrum Complete Multivit Tab] Sennosides-Docusate Sodium 1 tab PO DAILY@79906/18/19 01/28/22 History [Senokot-S] calcitrioL [Calcitriol] 0.5 mcg PO MOWEFR@79906/18/19 01/28/22 History hydrALAZINE HCL [Apresoline] 100 mg PO TID-W/MEALS 06/18/19 01/28/22 History Prazosin HCl 4 mg PO TID@0800,1500,199909/05/19 01/28/22 History Apixaban [Eliquis] 5 mg PO BID@799,199903/04/21 01/28/22 History Atorvastatin [Lipitor] 40 mg PO HS@199901/27/22 01/28/22 History Carvedilol [Coreg] 25 mg PO BID-W/MEALS 01/27/22 01/28/22 History Cholecalciferol (Vitamin D3) 125 mcg PO DAILY@0800 01/27/22 01/28/22 History [Vitamin D3 (125 MCG = 5,000 IU)] Dexamethasone [Decadron] 6 mg PO DAILY #5 tablet 01/27/22 01/28/22 Rx Insulin NPH Hum/Reg Insulin Hm 27 unit SQ W/SUPPER 01/27/22 01/28/22 History [humuLIN 70/30 Kwikpen] Insulin NPH Hum/Reg Insulin Hm 35 unit SQ W/BRKFST 01/27/22 01/28/22 History [humuLIN 70/30 Kwikpen] Isosorbide Mononitrate ER [Imdur] 60 mg PO DAILY@0800 01/27/22 01/28/22 History Tamsulosin [Flomax] 0.4 mg PO HS@199901/27/22 01/28/22 History cloNIDine HCL [Catapres] 0.2 mg PO TID@0800,1500,199901/27/22 01/28/22 History Allergies Allergy/AdvReac Type Severity Reaction Status Date / Time amlodipine Allergy Anaphylaxis Verified 01/28/22 09:26 lisinopril Allergy tongue Verified 01/28/22 09:26 swelling vancomycin Allergy seizure Verified 01/28/22 09:26 like activity Physical Exam Vitals: Vital Signs Temp Pulse Resp BP Pulse Ox 01/28/22 09:52 84 18 175/88 99 01/28/22 08:42 99.7 F H 92 20 197/98 97 Intake and Output 01/27/22 01/28/22 01/28/22 22:59 06:59 14:59 Other: Weight 99.79 kg Results CBC & Chem 7: 01/28/22 09:12 01/28/22 09:12 Labs: Abnormal Lab Results - Last 24 Hours (Table) 01/28/22 01/28/22 01/28/22 Range/Units 09:12 09:12 09:12 RBC 4.24 L (4.30-5.90) m/uL Hgb 12.9 L (13.0-17.5) gm/dL Hct 37.4 L (39.0-53.0) % Plt Count 124 L (150-450) k/uL Lymphocytes # 0.4 L (1.0-4.8) k/uL APTT 35.1 H (22.0-30.0) sec Sodium 135 L (137-145) mmol/L BUN 36 H (9-20) mg/dL Creatinine 2.08 H (0.66-1.25) mg/dL Glucose 133 H (74-99) mg/dL Troponin I (0.000-0.034) ng/mL 01/28/22 01/28/22 Range/Units 09:12 11:45 RBC (4.30-5.90) m/uL Hgb (13.0-17.5) gm/dL Hct (39.0-53.0) % Plt Count (150-450) k/uL Lymphocytes # (1.0-4.8) k/uL APTT (22.0-30.0) sec Sodium (137-145) mmol/L BUN (9-20) mg/dL Creatinine (0.66-1.25) mg/dL Glucose (74-99) mg/dL Troponin I 0.137 H* 0.143 H* (0.000-0.034) ng/mL
--- NOTE | 2022-01-28 14:40 | P.CRDCN ---
History of Present Illness History of present illness: This is a pleasant 76-year-old male with a past medical history of multivessel coronary artery disease, hypertension, chronic kidney disease, hyperlipidemia, diabetes, peripheral vascular disease, left [id number] amputation, Bilateral pulmonary embolism on Eliquis, bilateral carotid artery stenosis, he underwent a cardiac catheterization in 2017 which revealed a 20-30% LAD stenosis proximally as well as a 70-80% mid segment stenosis, circumflex with 70-80%, 90% in the OM and second OM as well as 80% stenosis in the RCA, patient is not a candidate for surgical intervention and continues to be on medical therapy. He follows with Dr. Murillo. We are consulted for elevated troponin. Patient presents to the hospital with complaints of decreased appetite, fever 100 at home, cough, сергей rtness of breath for the past 3 days. Patient found to be COVID-19 positive. He is vaccinated, however, has not received his booster. He denies any chest pain, lightheadedness, dizziness, syncope or near syncope. No symptoms of orthopnea, PND, or lower extremity edema. Prior to his symptoms starting 3 days ago, he states he was doing well, no chest pain or shortness of breath. Patient was found to hypertensive BP 226/111 and febrile on admission. DIAGNOSTICS EKG reveals sinus rhythm, first-degree AV block, heart rate 90, incomplete right bundle branch block, mild ST depression in inferior leads, Prior EKG with similar findings Telemetry tracings indicate sinus mechanism Chest xray Basilar infiltrates correlate for pneumonia Echocardiogram 08/2019 revealed EF 50-55%, RV is moderately enlarged, mild mitral regurgitation, mild tricuspid regurgitation Laboratory reviewed, WBC 5.1, hemoglobin 12.9, platelets 124, sodium 135, potassium 4.1, BUN 36, serum current 2.0, troponin 10, 0.13, 0.14, Covid-19 positive Current home cardiac medications include atorvastatin 40 mg nightly, hydralazine 100 mg 3 times a day, clonidine 0.2 mg 3 times a day, Imdur 60 mg daily, carvedilol 25 mg twice a day, aspirin 81 mg daily, Eliquis 5 mg twice a day REVIEW OF SYSTEMS At the time of my exam: CONSTITUTIONAL: +fever Denies chills. +Decrease PO intake CARDIOVASCULAR: Denies chest pain, +shortness of breath, Denies orthopnea, PND or palpitations. RESPIRATORY: reports cough. GASTROINTESTINAL: Denies abdominal pain, diarrhea, constipation, nausea or vomiting. MUSCULOSKELETAL: Denies myalgias. NEUROLOGIC: Denies numbness, tingling, headacbe or weakness. ENDOCRINE: Denies fatigue, weight change, polydipsia or polyurina. GENITOURINARY: Denies burning, hematuria or urgency with micturation. HEMATOLOGIC: + anemia Denies bleeding. PHYSICAL EXAMINATION Blood pressure 171/92, heart rate 75, temp 100.1F, 98% on room air CONSTITUTIONAL: No apparent distress. HEENT: Head is normocephalic. Pupils are equal, round. Sclerae anicteric. Mucous membranes of the mouth are moist. No JVD. CHEST EXAMINATION: Lungs are diminished, rhonchi bilaterally to auscultation. No chest wall tenderness is noted on palpation or with deep breathing. HEART EXAMINATION: Regular rate and rhythm. S1, S2 heard. No murmurs, gallops or rubs noted. ABDOMEN: Soft, nontender. Positive bowel sounds. EXTREMITIES: 2+ peripheral pulses, no lower extremity edema, left above the knee amputation noted and no calf tenderness. NEUROLOGIC EXAMINATION: Patient is awake, alert and oriented x3. ASSESSMENT Elevated troponin, likely related to febrile illness and covid-19 pneumonia, patient without chest pain, no acute ischemia noted on EKG. Covid-19 Pneumonia Acute on chronic kidney disease, serum creatinine improved with IV fluids Hypertension Multivessel coronary artery disease Hyperlipidemia Type 2 Diabetes Peripheral vascular disease History of left [id number] amputation History of bilateral pulmonary embolism on Eliquis Bilateral carotid artery stenosis PLAN Obtain 2D echocardiogram and doppler study to assess cardiac structure and function. We will continue home cardiac medications Patient's BP improved with resuming home antihypertensive medications, Monitor patient's BP. Continue cardiac telemetry Infectious disease consulted Further recommendations based on clinical course and evaluation by Dr. Murillo Nurse practitioner note has been reviewed by physician. Signing provider agrees with the documented findings, assessment, and plan of care. Past Medical History Past Medical History: Heart Failure, Diabetes Mellitus, Deep Vein Thrombosis (DVT), Hyperlipidemia, Hypertension, Syncope Additional Past Medical History / Comment(s): pt wants flu vaccine while here. other hx:per pt's "xray noted lung nodules". 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, L foot gr toe, 3rd &2nd toe amputated; Rfoot 3rd toe amputated, Bypass in Bilat legs, eulogio knee sx(cartilage), lt arm picc line.since removed, x3 sx total facial plastic sx and grafting done area under lt eye d/t injury, Ackerman placement.-rt upper chest Past Anesthesia/Blood Transfusion Reactions: Postoperative Nausea & Vomiting (PONV) Additional Past Anesthesia/Blood Transfusion Reaction / Comment(s): never recieved blood Past Psychological History: No Psychological Hx Reported Smoking Status: Never smoker Past Alcohol Use History: None Reported Past Drug Use History: None Reported - Past Family History Father Family Medical History: Deep Vein Thrombosis (DVT) Additional Family Medical History / Comment(s): had valve sx- a week later from complications Mother Family Medical History: Congestive Heart Failure (CHF) Additional Family Medical History / Comment(s): phlebitis Medications and Allergies Home Medications Medication Instructions Recorded Confirmed Type Aspirin EC [Ecotrin Low Dose] 81 mg PO DAILY@79906/18/19 01/28/22 History Multivitamin/Iron/Folic Acid 1 tab PO DAILY@79906/18/19 01/28/22 History [Centrum Complete Multivit Tab] Sennosides-Docusate Sodium 1 tab PO DAILY@79906/18/19 01/28/22 History [Senokot-S] calcitrioL [Calcitriol] 0.5 mcg PO MOWEFR@79906/18/19 01/28/22 History hydrALAZINE HCL [Apresoline] 100 mg PO TID-W/MEALS 06/18/19 01/28/22 History Prazosin HCl 4 mg PO TID@0800,1500,199909/05/19 01/28/22 History Apixaban [Eliquis] 5 mg PO BID@0800,199903/04/21 01/28/22 History Atorvastatin [Lipitor] 40 mg PO HS@199901/27/22 01/28/22 History Carvedilol [Coreg] 25 mg PO BID-W/MEALS 01/27/22 01/28/22 History Cholecalciferol (Vitamin D3) 125 mcg PO DAILY@0800 01/27/22 01/28/22 History [Vitamin D3 (125 MCG = 5,000 IU)] Dexamethasone [Decadron] 6 mg PO DAILY #5 tablet 01/27/22 01/28/22 Rx Insulin NPH Hum/Reg Insulin Hm 27 unit SQ W/SUPPER 01/27/22 01/28/22 History [humuLIN 70/30 Kwikpen] Insulin NPH Hum/Reg Insulin Hm 35 unit SQ W/BRKFST 01/27/22 01/28/22 History [humuLIN 70/30 Kwikpen] Isosorbide Mononitrate ER [Imdur] 60 mg PO DAILY@0800 01/27/22 01/28/22 History Tamsulosin [Flomax] 0.4 mg PO HS@199901/27/22 01/28/22 History cloNIDine HCL [Catapres] 0.2 mg PO TID@0800,1500,199901/27/22 01/28/22 History Allergies Allergy/AdvReac Type Severity Reaction Status Date / Time amlodipine Allergy Anaphylaxis Verified 01/28/22 09:26 lisinopril Allergy tongue Verified 01/28/22 09:26 swelling vancomycin Allergy seizure Verified 01/28/22 09:26 like activity Physical Exam Vitals: Vital Signs Temp Pulse Resp BP Pulse Ox 01/28/22 09:52 84 18 175/88 99 01/28/22 08:42 99.7 F H 92 20 197/98 97 Intake and Output 01/27/22 01/28/22 01/28/22 22:59 06:59 14:59 Other: Weight 99.79 kg Results 01/28/22 09:12 03/10/22 09:12 Cardiac Enzymes 01/28/22 01/28/22 01/28/22 Range/Units 09:12 09:12 11:45 AST 34 (17-59) U/L Troponin I 0.137 H* 0.143 H* (0.000-0.034) ng/mL Coagulation 01/28/22 Range/Units 09:12 PT 10.7 (9.0-12.0) sec APTT 35.1 H (22.0-30.0) sec CBC 01/28/22 Range/Units 09:12 WBC 5.1 (3.8-10.6) k/uL RBC 4.24 L (4.30-5.90) m/uL Hgb 12.9 L (13.0-17.5) gm/dL Hct 37.4 L (39.0-53.0) % Plt Count 124 L (150-450) k/uL Comprehensive Metabolic Panel 01/28/22 Range/Units 09:12 Sodium 135 L (137-145) mmol/L Potassium 4.1 (3.5-5.1) mmol/L Chloride 107 (98-107) mmol/L Carbon Dioxide 22 (22-30) mmol/L BUN 36 H (9-20) mg/dL Creatinine 2.08 H (0.66-1.25) mg/dL Glucose 133 H (74-99) mg/dL Calcium 8.6 (8.4-10.2) mg/dL AST 34 (17-59) U/L ALT 30 (4-49) U/L Alkaline Phosphatase 78 (38-126) U/L Total Protein 6.4 (6.3-8.2) g/dL Albumin 3.5 (3.5-5.0) g/dL Current Medications Generic Name Dose Route Start Last Admin Trade Name Freq PRN Reason Stop Dose Admin Apixaban 5 mg 01/28/22 20:00 Apixaban 5 Mg Tab PO BID@799,1999 [facility] Protocol Aspirin 81 mg 01/29/22 08:00 Aspirin 81 Mg PO DAILY@0800 [facility] Atorvastatin Calcium 40 mg 01/28/22 20:00 Atorvastatin 40 Mg Tab PO HS@1999 [facility] Calcitriol 0.5 mcg 01/29/22 08:00 Calcitriol 0.25 Mcg Cap PO MOWEFR@0800 [facility] Calcium Carbonate/Glycine 1,000 mg 01/28/22 12:18 Calcium Carbonate 500 Mg Chewable PO Q4HR PRN Dyspepsia Carvedilol 25 mg 01/28/22 20:00 Carvedilol 12.5 Mg Tab PO BID@0800,1999 [facility] Cholecalciferol 125 mcg 01/29/22 08:00 Cholecalciferol 125 Mcg (5000 Iu) Tablet PO DAILY@0800 [facility] Clonidine 0.2 mg 01/28/22 15:00 Clonidine Hcl 0.2 Mg Tab PO TID@0800,1500,2000 [facility] Hydralazine HCl 100 mg 01/28/22 15:00 Hydralazine Hcl 50 Mg Tab PO TID@0800,1500,2100 [facility] Sodium Chloride 1,000 mls @ 75 mls/hr 01/28/22 11:30 Saline 0.9% IV .[id number] [facility] Insulin Aspart 15 unit 01/28/22 17:30 Insuln Asp Prt/Insulin Aspart 100 Unit/Ml 10 Ml Vial SQ W/SUPPER [facility] Insulin Aspart 25 unit 01/29/22 07:30 Insuln Asp Prt/Insulin Aspart 100 Unit/Ml 10 Ml Vial SQ W/BRKFST [facility] Insulin Aspart 0 unit 01/28/22 12:30 Insulin Aspart (Novolog) 100 Unit/Ml Vial SQ AC-TID [facility] Protocol Isosorbide Mononitrate 60 mg 01/29/22 08:00 Isosorbide Mononitrate Er 60 Mg Tab.Er.24h PO DAILY@0800 [facility] Lactulose 20 gm 01/28/22 12:18 Lactulose 20 Gm/30 Ml Cup PO DAILY PRN Constipation Lorazepam 0.5 mg 01/28/22 12:18 Lorazepam 0.5 Mg Tab PO Q6HR PRN Anxiety Melatonin 3 mg 01/28/22 12:18 Melatonin 3 Mg Tablet PO HS PRN Insomnia Multivitamins 1 each 01/29/22 08:00 Multivitamins, Thera 1 Each Tab PO DAILY@0800 [facility] Naloxone HCl 0.2 mg 01/28/22 12:18 Naloxone 0.4 Mg/Ml 1 Ml Vial IV Q2M PRN Opioid Reversal Nitroglycerin 0.4 mg 01/28/22 11:21 Nitroglycerin Sl Tabs 0.4 Mg Tab SUBLINGUAL Q5M PRN Chest Pain Ondansetron HCl 4 mg 01/28/22 11:23 Ondansetron 4 Mg/2 Ml Vial IVP Q6HR PRN Nausea And Vomiting Prazosin HCl 4 mg 01/28/22 15:00 Prazosin 1 Mg Cap PO TID@0800,1500,2000 [facility] Senna/Docusate Sodium 1 each 01/29/22 08:00 Sennosides-Docusate Sodium 1 Each Tab PO DAILY@0800 [facility] Tamsulosin HCl 0.4 mg 01/28/22 20:00 Tamsulosin 0.4 Mg Cap.Er.24h PO HS@1999 [facility] Intake and Output 01/27/22 01/28/22 01/28/22 22:59 06:59 14:59 Other: Weight 99.79 kg Patient Weight 01/29/22 06:59 Weight 99.79 kg 01/28/22 09:12 01/28/22 09:12
[2022-01-28] MEDS: SODIUM CHLORIDE 0.9% 1,000 ML IV SCH (14:57)
[2022-01-28 15:07] LABS: Glucose,Whole Blood 254 mg/dL (75-99)
[2022-01-28] MEDS: PRAZOSIN 1 MG CAP PO SCH ×2 (15:10→21:09)
[2022-01-28] MEDS: INSULIN ASPART (NovoLOG) 100 UNIT/ML VIAL SQ SCH ×2 (15:10→17:27)
[2022-01-28] MEDS: hydrALAZINE HCL 50 MG TAB PO SCH ×2 (15:11→19:58)
[2022-01-28] MEDS: cloNIDine HCL 0.2 MG TAB PO SCH ×2 (15:11→19:59)
--- NOTE | 2022-01-28 16:45 | ECHOF ---
Referral Reason:chest pain MEASUREMENTS -------- HEIGHT: 190.5 cm WEIGHT: 99.8 kg BP: 175/88 RVIDd: 4.4 cm (< 3.3) IVSd: 1.6 cm (0.6 - 1.1) LVIDd: 4.5 cm (3.9 - 5.3) LVPWd: 1.5 cm (0.6 - 1.1) IVSs: 1.8 cm LVIDs: 2.8 cm LVPWs: 2.2 cm LAESV Index (A-L): 39.21 ml/m Ao Diam: 2.6 cm (2.0 - 3.7) AV Cusp: 1.0 cm (1.5 - 2.6) MV E Angel: 0.52 m/s MV DecT: 332 ms MV A Angel: 0.82 m/s MV E/A Ratio: 0.64 FINDINGS -------- Sinus rhythm. This was a technically adequate study. The left ventricular size is normal. There is moderate concentric left ventricular hypertrophy. O verall left ventricular systolic function is low-normal with, an EF between 50 - 55 %. The right ventricle is moderately enlarged. LA is moderately dilated 34-39 ml/m2 The right atrium was not well visualized. Interatrial and interventricular septum intact. There is no evidence of aortic regurgitation. There is no evidence of aortic stenosis. Mild mitral regurgitation is present. Mild tricuspid regurgitation present. Unable to estimate RVSP due to inadequate TR jet spectral dop pler profile. The pulmonic valve was not well visualized. The aortic root size is normal. IVC Not well visulized. Echo free space represents a pericardial fat pad. There is no pericardial effusion. CONCLUSIONS -------- 1. The left ventricular size is normal. 2. There is moderate concentric left ventricular hypertrophy. 3. Overall left ventricular systolic function is low-normal with, an EF between 50 - 55 %. 4. The right ventricle is moderately enlarged. 5. LA is moderately dilated 34-39 ml/m2 6. Mild mitral regurgitation is present. 7. Mild tricuspid regurgitation present. HEALTH EQUIPMENT SERVICER: Damaris Alegre [facility]
[2022-01-28 16:58] LABS: Glucose,Whole Blood 227 mg/dL (75-99)
[2022-01-28] MEDS ORDERED: INSULN ASP PRT/INSULIN ASPART 100 UNIT/ML 10 ML VIAL SQ SCH ×2 (17:30)
[2022-01-28] MEDS: APIXABAN 5 MG TAB PO SCH (19:59)
[2022-01-28] MEDS: carvediloL 12.5 MG TAB PO SCH (19:59)
[2022-01-28] MEDS ORDERED: TAMSULOSIN 0.4 MG CAP.ER.24H PO SCH (20:00)
[2022-01-28] MEDS ORDERED: ATORVASTATIN 40 MG TAB PO SCH (20:00)
[2022-01-28 20:45] LABS: Glucose,Whole Blood 169 mg/dL (75-99)
[2022-01-29 00:13] VITALS: RESP 18
[2022-01-29] MEDS: SODIUM CHLORIDE 0.9% 1,000 ML IV SCH (04:10)
[2022-01-29 06:06] LABS: Glucose,Whole Blood 141 mg/dL (75-99)
[2022-01-29] MEDS: INSULIN ASPART (NovoLOG) 100 UNIT/ML VIAL SQ SCH ×2 (06:26→13:28)
[2022-01-29] MEDS ORDERED: INSULN ASP PRT/INSULIN ASPART 100 UNIT/ML 10 ML VIAL SQ SCH ×2 (07:30)
[2022-01-29] MEDS ORDERED: ISOSORBIDE MONONITRATE ER 60 MG TAB.ER.24H PO SCH (08:00)
[2022-01-29] MEDS ORDERED: MULTIVITAMINS, THERA 1 EACH TAB PO SCH (08:00)
[2022-01-29] MEDS ORDERED: SENNOSIDES-DOCUSATE SODIUM 1 EACH TAB PO SCH (08:00)
[2022-01-29] MEDS ORDERED: ASPIRIN 81 MG PO SCH (08:00)
[2022-01-29] MEDS ORDERED: CHOLECALCIFEROL 125 MCG (5000 IU) TABLET PO SCH (08:00)
--- NOTE | 2022-01-29 08:03 | P.CONS ---
History of Present Illness - Reason for Consult Consult date: 01/28/22 covid 19 pneumonia Requesting physician: Rk Crockett - Chief Complaint Weakness and cough x few days - History of Present Illness Patient is a 76-year old male presenting to the ER this morning for evaluation of generalized weakness patient symptom has been going on for about 4 days complaining of increasing shortness of breath some chest tightness nausea and vomiting and not able to keep anything down denies any abdominal pain did have some diarrhea patient also have a cough which is mild in intensity and is mostly dry in nature patient was diagnosed with a covid19 on 01/27/2022 the patient did receive monoclonal antibodies and subsequently discharged home however the patient is presenting back to the hospital concerning for generalized weakness and unable to do anything and to be complaining of throwing up with the center the patient was reevaluated by the ER physician on arrival to the ER patient did have low-grade fever of 99.7 F patient is currently not hypoxic or need for supplemental oxygen satting 97% on room air patient did have a normal white count with lymphopenia troponin is mildly elevated BUN and creatinine was mildly elevated liver enzymes are normal patient did have a chest x-ray basilar infiltrate correlate for pneumonia patient has been admitted to the hospital infectious disease was consulted for further management Review of Systems Positive point has been mentioned in the HPI rest of the systems are negative Past Medical History Past Medical History: Heart Failure, Diabetes Mellitus, Deep Vein Thrombosis (DVT), Hyperlipidemia, Hypertension, Syncope Additional Past Medical History / Comment(s): 11301-8 pt wants flu vaccine while here. other hx:per pt's "xray noted lung nodules". 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 tumor removed from bladder, L foot gr toe, 3rd &2nd toe amputated; Rfoot 3rd toe amputated, Bypass in Bilat legs, eulogio knee sx(cartilage), lt arm picc line.since removed, x3 sx total facial plastic sx and grafting done area under lt eye d/t injury, Ackerman placement.-rt upper chest Past Anesthesia/Blood Transfusion Reactions: Postoperative Nausea & Vomiting (PONV) Additional Past Anesthesia/Blood Transfusion Reaction / Comm: never recieved blood Past Psychological History: No Psychological Hx Reported Smoking Status: Never smoker Past Alcohol Use History: None Reported Past Drug Use History: None Reported - Past Family History Father Family Medical History: Deep Vein Thrombosis (DVT) Additional Family Medical History / Comment(s): had valve sx- a week later from complications Mother Family Medical History: Congestive Heart Failure (CHF) Additional Family Medical History / Comment(s): phlebitis Medications and Allergies Home Medications Medication Instructions Recorded Confirmed Type Aspirin EC [Ecotrin Low Dose] 81 mg PO DAILY@0806/18/19 01/28/22 History Multivitamin/Iron/Folic Acid 1 tab PO DAILY@79906/18/19 01/28/22 History [Centrum Complete Multivit Tab] Sennosides-Docusate Sodium 1 tab PO DAILY@79906/18/19 01/28/22 History [Senokot-S] calcitrioL [Calcitriol] 0.5 mcg PO MOWEFR@79906/18/19 01/28/22 History hydrALAZINE HCL [Apresoline] 100 mg PO TID-W/MEALS 06/18/19 01/28/22 History Prazosin HCl 4 mg PO TID@0800,1499,199909/05/19 01/28/22 History Apixaban [Eliquis] 5 mg PO BID@799,199903/04/21 01/28/22 History Atorvastatin [Lipitor] 40 mg PO HS@199901/27/22 01/28/22 History Carvedilol [Coreg] 25 mg PO BID-W/MEALS 01/27/22 01/28/22 History Cholecalciferol (Vitamin D3) 125 mcg PO DAILY@0801/27/22 01/28/22 History [Vitamin D3 (125 MCG = 5,000 IU)] Dexamethasone [Decadron] 6 mg PO DAILY #5 tablet 01/27/22 01/28/22 Rx Insulin NPH Hum/Reg Insulin Hm 27 unit SQ W/SUPPER 01/27/22 01/28/22 History [humuLIN 70/30 Kwikpen] Insulin NPH Hum/Reg Insulin Hm 35 unit SQ W/BRKFST 01/27/22 01/28/22 History [humuLIN 70/30 Kwikpen] Isosorbide Mononitrate ER [Imdur] 60 mg PO DAILY@0800 01/27/22 01/28/22 History Tamsulosin [Flomax] 0.4 mg PO HS@199901/27/22 01/28/22 History cloNIDine HCL [Catapres] 0.2 mg PO TID@0800,1499,199901/27/22 01/28/22 History Allergies Allergy/AdvReac Type Severity Reaction Status Date / Time amlodipine Allergy Anaphylaxis Verified 01/28/22 09:26 lisinopril Allergy tongue Verified 01/28/22 09:26 swelling vancomycin Allergy seizure Verified 01/28/22 09:26 like activity Physical Exam Vitals: Vital Signs Temp Pulse Resp BP Pulse Ox 01/28/22 14:48 73 16 173/92 97 01/28/22 09:52 84 18 175/88 99 01/28/22 08:42 99.7 F H 92 20 197/98 97 Intake and Output 01/28/22 01/28/22 01/28/22 06:59 14:59 22:59 Other: Weight 99.79 kg GENERAL DESCRIPTION: Elderly male lying in bed, no distress. No tachypnea or accessory muscle of respiration use. HEENT: Shows Pallor , no scleral icterus. Oral mucous membrane is dry. No pharyngeal erythema or thrush NECK: Trachea central, no thyromegaly. LUNGS: Unlabored breathing. Decreased intensity of breath sounds. No wheeze or crackle. HEART: S1, S2, regular rate and rhythm. No loud murmur ABDOMEN: Soft, no tenderness , guarding or rigidity, no organomegaly EXTREMITIES: No edema of feet. SKIN: No rash, no masses palpable. NEUROLOGICAL: The patient is awake, alert, oriented x3, mood and affect normal. Results CBC & Chem 7: 01/28/22 09:12 01/28/22 09:12 Labs: Abnormal Lab Results - Last 24 Hours (Table) 01/28/22 01/28/22 01/28/22 Range/Units 09:12 09:12 09:12 RBC 4.24 L (4.30-5.90) m/uL Hgb 12.9 L (13.0-17.5) gm/dL Hct 37.4 L (39.0-53.0) % Plt Count 124 L (150-450) k/uL Lymphocytes # 0.4 L (1.0-4.8) k/uL APTT 35.1 H (22.0-30.0) sec Sodium 135 L (137-145) mmol/L BUN 36 H (9-20) mg/dL Creatinine 2.08 H (0.66-1.25) mg/dL Glucose 133 H (74-99) mg/dL POC Glucose (mg/dL) (75-99) mg/dL Troponin I (0.000-0.034) ng/mL 01/28/22 01/28/22 01/28/22 Range/Units 09:12 11:45 15:06 RBC (4.30-5.90) m/uL Hgb (13.0-17.5) gm/dL Hct (39.0-53.0) % Plt Count (150-450) k/uL Lymphocytes # (1.0-4.8) k/uL APTT (22.0-30.0) sec Sodium (137-145) mmol/L BUN (9-20) mg/dL Creatinine (0.66-1.25) mg/dL Glucose (74-99) mg/dL POC Glucose (mg/dL) 254 H (75-99) mg/dL Troponin I 0.137 H* 0.143 H* (0.000-0.034) ng/mL Assessment and Plan (1) COVID-19 Current Visit: Yes Status: Acute Code(s): U07.1 - COVID-19 SNOMED Code(s): 826583412 Plan: 1patient presented to hospital with generalized weakness in this patient symptom has been going on for about 4 days and has been diagnosed with a covid19 patient did have partial vaccination for covid19 has received only 2 doses but not the booster and did have evidence of mild covid19 pneumonia, patient is currently not hypoxic or need for supplemental oxygen hence will not qualify for remdesivir per [facility] policy and there is no evidence of any secondary bacterial pneumonia. 2patient to continue with Eliquis, will add zinc and ascorbic acid. 3as the patient is not hypoxic no need for dexamethasone 4droplet isolation and respiratory support We will follow on clinical condition and cultures to further adjust medication if needed Thank you for this consultation will follow this patient along with you Time with Patient: Greater than 30
[2022-01-29] MEDS ORDERED: dexAMETHasone 2 MG TAB PO SCH (09:00)
[2022-01-29] MEDS ORDERED: ASCORBIC ACID 500 MG TAB PO SCH (09:00)
[2022-01-29] MEDS ORDERED: ZINC SULFATE 220 MG CAP PO SCH (09:00)
[2022-01-29] MEDS ORDERED: ASPIRIN 325 MG TAB PO SCH (09:00)
[2022-01-29] MEDS: hydrALAZINE HCL 50 MG TAB PO SCH (09:34)
[2022-01-29] MEDS: APIXABAN 5 MG TAB PO SCH (09:34)
[2022-01-29] MEDS: carvediloL 12.5 MG TAB PO SCH (09:35)
[2022-01-29] MEDS: PRAZOSIN 1 MG CAP PO SCH (09:38)
[2022-01-29] MEDS: cloNIDine HCL 0.2 MG TAB PO SCH (09:38)
[2022-01-29 09:40] VITALS: BP 174/97; PULSE 74; TEMP 98.6
[2022-01-29 11:54] LABS: Glucose,Whole Blood 149 mg/dL (75-99)
[2022-01-29 12:09] LABS: Chol/HDL Ratio 3.49 Ratio; LDL Cholesterol,Calculated 58.5 mg/dL (0.0-131.0)
--- NOTE | 2022-01-29 13:19 | P.PN ---
Subjective This is a pleasant 76-year-old male with a past medical history of multivessel coronary artery disease, hypertension, chronic kidney disease, hyperlipidemia, diabetes, peripheral vascular disease, left mcxwd-muj-exxb amputation, Bilateral pulmonary embolism on Eliquis, bilateral carotid artery stenosis, he underwent a cardiac catheterization in 2017 which revealed a 20-30% LAD stenosis proximally as well as a 70-80% mid segment stenosis, circumflex with 70-80%, 90% in the OM and second OM as well as 80% stenosis in the RCA, patient is not a candidate for surgical intervention and continues to be on medical therapy. He follows with Dr. Murillo. We are consulted for elevated troponin. Patient presents to the hospital with complaints of decreased appetite, fever 100 at home, cough, shortness of breath for the past 3 days. Patient found to be COVID-19 positive. He is vaccinated, however, has not received his booster. He denies any chest pa in, lightheadedness, dizziness, syncope or near syncope. No symptoms of orthopnea, PND, or lower extremity edema. Prior to his symptoms starting 3 days ago, he states he was doing well, no chest pain or shortness of breath. Patient was found to hypertensive BP 226/111 and febrile on admission. 01/29/2022 Patient examined at bedside, no acute distress. He does state shortness of breath. He is tolerating the diet. Afebrile. He states he is feeling better. No acute events overnight. Echocardiogram revealed EF 5055 percent, no significant wall motion abnormalities. PHYSICAL EXAMINATION Vitals reviewed CONSTITUTIONAL: No apparent distress. HEENT: Neck Supple. No JVD. CHEST EXAMINATION: Lungs are diminished bilaterally to auscultation. No chest wall tenderness is noted on palpation or with deep breathing. HEART EXAMINATION: Regular rate and rhythm. S1, S2 heard. ABDOMEN: Soft, nontender. EXTREMITIES: no lower extremity edema, left above the knee amputation noted and no calf tenderness. NEUROLOGIC EXAMINATION: Patient is awake, alert and oriented x3. ASSESSMENT Elevated troponin, likely related to febrile illness and covid-19 pneumonia, patient without chest pain, no acute ischemia noted on EKG. Covid-19 Pneumonia Acute on chronic kidney disease, serum creatinine improved with IV fluids Hypertension Multivessel coronary artery disease Hyperlipidemia Type 2 Diabetes Peripheral vascular disease History of left nilre-kbi-yqqr amputation History of bilateral pulmonary embolism on Eliquis Bilateral carotid artery stenosis PLAN Echocardiogram revealed EF 5055 percent, no significant wall motion abnormalities. We will continue home cardiac medications From a cardiology perspective, patient is stable. Follow up outpatient with Dr. Murillo. Nurse practitioner note has been reviewed by physician. Signing provider agrees with the documented findings, assessment, and plan of care. Objective - Vital Signs Vital signs: Vital Signs Temp 98.6 F 01/29/22 09:40 Pulse 74 01/29/22 09:40 Resp 18 01/29/22 09:40 BP 174/97 01/29/22 09:40 Pulse Ox 97 01/29/22 09:40 Intake & Output 01/28/22 01/29/22 01/29/22 18:59 06:59 18:59 Intake Total 720 118 Output Total 700 450 Balance 20 -332 Weight 99.79 kg Intake: Intake, IV Titration 0 Amount Sodium Chloride 0.9% 1, 0 000 ml @ 75 mls/hr IV . [id number] [facility] Rx#:[id number] Oral 720 118 Output: Urine 700 450 - Labs CBC & Chem 7: 01/28/22 09:12 01/28/22 09:12 Labs: Abnormal Lab Results - Last 24 Hours (Table) 01/28/22 01/28/22 01/28/22 Range/Units 09:12 15:06 16:09 POC Glucose (mg/dL) 254 H (75-99) mg/dL Troponin I 0.141 H* (0.000-0.034) ng/mL HDL Cholesterol 34.10 L (40.00-60.00) mg/dL 01/28/22 01/28/22 01/29/22 Range/Units 16:42 20:44 06:04 POC Glucose (mg/dL) 227 H 169 H 141 H (75-99) mg/dL Troponin I (0.000-0.034) ng/mL HDL Cholesterol (40.00-60.00) mg/dL 01/29/22 Range/Units 11:52 POC Glucose (mg/dL) 149 H (75-99) mg/dL Troponin I (0.000-0.034) ng/mL HDL Cholesterol (40.00-60.00) mg/dL
--- NOTE | 2022-01-29 14:24 | P.DS ---
Providers Date of admission: 01/28/22 11:21 Expected date of discharge: 01/29/22 Attending physician: Rk Crockett Consults: 01/28/22 11:21 Consult Physician Urgent Consulting Provider: Joseph Méndez Consult Reason/Comments: COVID 19 Do you want consulting provider notified?: Yes 01/28/22 12:10 Consult Physician Routine Consulting Provider: Bethel Murillo Consult Reason/Comments: pos troponin Do you want consulting provider notified?: Yes Primary care physician: Jack De Jesus [facility] Course: Chief Complaint: Nausea vomiting History of presenting complaint: This is a pleasant 76-year-old patient who follows with Dr. Jack De Jesus. Chronic stable medical conditions include diabetes mellitus type 2 on insulin, causing peripheral neuropathy and diabetic retinopathy, hypertension, hyperlipidemia, chronic kidney disease stage III, CHF from diastolic dysfunction, severe peripheral arterial disease, coronary artery disease not a candidate for surgical intervention, essential hypertension. Poor vision in left eye Patient has not been feeling well for a week. He's had some cough with some clear sputum. Some shortness of breath. Unable to expectorate. Patient received the COVID-19 vaccine and booster. Just not feeling well. Had some fever. Some diarrhea. Tired rundown. Started out with nausea vomiting yesterday. Came to the ER yesterday. And were discharged home. Started having more nausea vomiting at home. Tired rundown. Decided to come back in. Did have a positive troponin. Admitted with COVID-19 possible myocarditis. Severe GI symptoms from COVID-19. No indication for steroids because of good pulse ox. Given IV fluids. Today: Doing well. Did tolerate his breakfast. No nausea vomiting. Feeling much better. Seen by cardiac surgery. No further intervention. Discussed with the patient. Keen to go home. Soft diet advice. Past medical history: diabetes mellitus type 2 on insulin, causing peripheral neuropathy and diabetic retinopathy, hypertension, hyperlipidemia, chronic kidney disease stage III, CHF from diastolic dysfunction, severe peripheral arterial disease, coronary artery disease not a candidate for surgical intervention, essential hypertension. 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 No alcohol or smoking history. Family history: DVT Physical examination: VITAL SIGNS: 98.6, 74, 14, 1 67/97, 97% room air GENERAL: Up in a chair, comfortable EYES: Pupils equal. Conjunctiva normal. HEENT: External appearance of nose and ears normal, oral cavity grossly normal. NECK: JVD not raised; masses not palpable. HEART: First and second heart sounds are normal; no edema. LUNGS: Respiratory rate normal; decreased breath sounds. ABDOMEN: Soft, nontender, liver spleen not palpable, no masses palpable. PSYCH: [Alert and oriented x3; mood and affect normal MUSCULOSKELETAL:No Clubbing/cyanosis;muscles-grossly intact NEUROLOGICAL: Cranial nerves grossly intact; no facial asymmetry, power and sensation grossly intact. EXTREMITIES: Left above knee amputation INVESTIGATIONS, reviewed in the clinical context: White count 5.1 hemoglobin 12.9 platelets 124 sodium 135 potassium 4.1 BUN 36 creatinine 2.08 LDL 58 Troponin I 0.016 0.137, 0.143 COVID 19 PCR: Detected EKG tracing personally reviewed by me-sinus rhythm, ST segment depression in inferolateral leads Chest x-ray film personally reviewed by me-some infiltrates Assessment and plan: -Probable Acute COVID-19 myocarditis. Telemetry. Consult cardiology. -COVID-19 pneumonitis in a patient who did receive the vaccine in the posterior. Pulse ox 97% on room air. No steroids indicated -Clinical dehydration from nausea vomiting IV fluids -Diabetes mellitus type 2, chronically on insulin causing peripheral neuropathy, diabetic retinopathy Cutback on scheduled dose of insulin. Follow Accu-Cheks and sliding scale. -Essential hypertension Continue with Coreg, Catapres, hydralazine, Minipress -Hyperlipidemia Continue with Lipitor -Chronic kidney disease stage III from diabetic nephropathy and hypertensive nephrosclerosis Follow renal function -Chronic congestive heart failure from diastolic dysfunction EF 50-55% Follow fluid status -Severe peripheral arterial disease Continue with aspirin -Coronary artery disease not a candidate for surgical intervention Continue with Coreg, Lipitor, Imdur -Decreased hearing in the right ear -Decreased vision in the left eye chronic -Left above-knee amputation Disposition: Home Plan - Discharge Summary Discharge Rx Participant: No New Discharge Prescriptions: New Ascorbic Acid [Vitamin C] 1,000 mg PO DAILY #30 tab INSULIN ASPART (NovoLOG) [NovoLOG (formulary)] 0 unit SQ AC-TID ml Zinc Sulfate [Orazinc] 220 mg PO DAILY #30 cap Continue Sennosides-Docusate Sodium [Senokot-S] 1 tab PO DAILY@0800 hydrALAZINE HCL [Apresoline] 100 mg PO TID-W/MEALS Multivitamin/Iron/Folic Acid [Centrum Complete Multivit Tab] 1 tab PO DAILY@0800 calcitrioL [Calcitriol] 0.5 mcg PO MOWEFR@0800 Aspirin EC [Ecotrin Low Dose] 81 mg PO DAILY@0800 Prazosin HCl 4 mg PO TID@0800,1499,1999 Apixaban [Eliquis] 5 mg PO BID@799,1999 Atorvastatin [Lipitor] 40 mg PO HS@1999 Cholecalciferol (Vitamin D3) [Vitamin D3 (125 MCG = 5,000 IU)] 125 mcg PO DAILY@0800 cloNIDine HCL [Catapres] 0.2 mg PO TID@0800,1499,1999 Isosorbide Mononitrate ER [Imdur] 60 mg PO DAILY@08 Tamsulosin [Flomax] 0.4 mg PO HS@1999 Carvedilol [Coreg] 25 mg PO BID-W/MEALS Changed Insulin NPH Hum/Reg Insulin Hm [humuLIN 70/30 Kwikpen] 20 unit SQ W/SUPPER #0 Insulin NPH Hum/Reg Insulin Hm [humuLIN 70/30 Kwikpen] 25 unit SQ W/BRKFST #0 Discontinued Dexamethasone [Decadron] 6 mg PO DAILY #5 tablet Discharge Medication List Aspirin EC [Ecotrin Low Dose] 81 mg PO DAILY@0800 06/18/19 [History] Multivitamin/Iron/Folic Acid [Centrum Complete Multivit Tab] 1 tab PO DAILY@0800 06/18/19 [History] Sennosides-Docusate Sodium [Senokot-S] 1 tab PO DAILY@0800 06/18/19 [History] calcitrioL [Calcitriol] 0.5 mcg PO MOWEFR@0800 06/18/19 [History] hydrALAZINE HCL [Apresoline] 100 mg PO TID-W/MEALS 06/18/19 [History] Prazosin HCl 4 mg PO TID@0800,1500,199909/05/19 [History] Apixaban [Eliquis] 5 mg PO BID@0800,199903/04/21 [History] Atorvastatin [Lipitor] 40 mg PO HS@199901/27/22 [History] Carvedilol [Coreg] 25 mg PO BID-W/MEALS 01/27/22 [History] Cholecalciferol (Vitamin D3) [Vitamin D3 (125 MCG = 5,000 IU)] 125 mcg PO DAILY@0800 01/27/22 [History] Isosorbide Mononitrate ER [Imdur] 60 mg PO DAILY@0800 01/27/22 [History] Tamsulosin [Flomax] 0.4 mg PO HS@199901/27/22 [History] cloNIDine HCL [Catapres] 0.2 mg PO TID@0800,1500,199901/27/22 [History] Ascorbic Acid [Vitamin C] 1,000 mg PO DAILY #30 tab 01/29/22 [Rx] INSULIN ASPART (NovoLOG) [NovoLOG (formulary)] 0 unit SQ AC-TID ml 01/29/22 [Rx] Insulin NPH Hum/Reg Insulin Hm [humuLIN 70/30 Kwikpen] 20 unit SQ W/SUPPER #0 01/29/22 [Rx] Insulin NPH Hum/Reg Insulin Hm [humuLIN 70/30 Kwikpen] 25 unit SQ W/BRKFST #0 01/29/22 [Rx] Zinc Sulfate [Orazinc] 220 mg PO DAILY #30 cap 01/29/22 [Rx] Follow up Appointment(s)/Referral(s): cardiology, [Other] - [facility] Aging,[place] [facility] [NON-STAFF] - Jack De Jesus MD [Primary Care Provider] - 02/08/22 1:00 pm Bethel Murillo MD [STAFF PHYSICIAN] - 02/08/22 8:00 am Patient Instructions/Handouts: Coronavirus Disease 2019 (COVID-19) Activity/Diet/Wound Care/Special Instructions: Ambulance form is filled out and placed into chart, dates will need to be filled out on form when patient is d/c. Discharge/Stand Alone Forms: Who Do I Call?, Help In The Home
--- NOTE | 2022-01-29 15:53 | P.PN ---
Subjective Progress Note Date: 01/29/22 Principal diagnosis: covid 19 pneumonia Patient is a 76-year-old male presented to hospital complaining of weakness shortness of breath and cough in this patient with recent diagnosis of Covid 19 and has received monoclonal antibodies. On today's evaluation that is 01/29/2022, the patient denies having any fever or chills, the patient is previously slightly comfortably and remains to be on room air, denies having any nausea no vomiting no abdominal pain or diarrhea Objective - Vital Signs Vital signs: Vital Signs Temp 98.6 F 01/29/22 09:40 Pulse 74 01/29/22 09:40 Resp 18 01/29/22 09:40 BP 174/97 01/29/22 09:40 Pulse Ox 97 01/29/22 09:40 Intake & Output 01/28/22 01/29/22 01/29/22 18:59 06:59 18:59 Intake Total 720 118 Output Total 700 250 Balance 20 -132 Weight 99.79 kg Intake: Intake, IV Titration 0 Amount Sodium Chloride 0.9% 1, 0 000 ml @ 75 mls/hr IV . [id number] [facility] Rx#:[id number] Oral 720 118 Output: Urine 700 250 - Exam GENERAL DESCRIPTION: An elderly male up in the chair in no distress RESPIRATORY SYSTEM: Unlabored breathing , decreased intensity of breath sounds HEART: S1 S2 regular rate and rhythm , ABDOMEN: Soft , no tenderness EXTREMITIES: No edema feet - Labs CBC & Chem 7: 01/28/22 09:12 01/28/22 09:12 Labs: Abnormal Lab Results - Last 24 Hours (Table) 01/28/22 01/28/22 01/28/22 Range/Units 09:12 11:45 15:06 POC Glucose (mg/dL) 254 H (75-99) mg/dL Troponin I 0.143 H* (0.000-0.034) ng/mL HDL Cholesterol 34.10 L (40.00-60.00) mg/dL 01/28/22 01/28/22 01/28/22 Range/Units 16:09 16:42 20:44 POC Glucose (mg/dL) 227 H 169 H (75-99) mg/dL Troponin I 0.141 H* (0.000-0.034) ng/mL HDL Cholesterol (40.00-60.00) mg/dL 01/29/22 01/29/22 Range/Units 06:04 11:52 POC Glucose (mg/dL) 141 H 149 H (75-99) mg/dL Troponin I (0.000-0.034) ng/mL HDL Cholesterol (40.00-60.00) mg/dL Assessment and Plan (1) COVID-19 Current Visit: Yes Status: Acute Code(s): U07.1 - COVID-19 SNOMED Code(s): 074131598 Plan: 1patient presented to hospital with generalized weakness in this patient symptom has been going on for about 4 days and has been diagnosed with a covid19 patient did have partial vaccination for covid19 has received only 2 doses but not the booster and did have evidence of mild covid19 pneumonia, patient is currently not hypoxic or need for supplemental oxygen hence will not qualify for remdesivir per [facility] policy and there is no evidence of any secondary bacterial pneumonia. 2patient seemed to have some clinical improvement and will continue with Eliquis, zinc and ascorbic acid. 3as the patient is not hypoxic no need for dexamethasone 4droplet isolation and respiratory support Time with Patient: Less than 30
== END 2022-01-29 15:55 | disposition home or self-care (01) | DRG 177 ==
LOC: EC 08:39 → 3SCARD 11:21
PROVIDERS: ADMIT Hospitalist; ATTEND Hospitalist
DX: U07.1 COVID-19 (principal); J12.82 Pneumonia due to coronavirus disease 2019; I40.0 Infective myocarditis; I13.0 Hypertensive heart and chronic kidney disease with heart failure and stage 1 through stage 4 chronic kidney disease, or unspecified chronic kidney disease; I50.32 Chronic diastolic (congestive) heart failure; B97.29 Other coronavirus as the cause of diseases classified elsewhere; E11.51 Type 2 diabetes mellitus with diabetic peripheral angiopathy without gangrene; E11.42 Type 2 diabetes mellitus with diabetic polyneuropathy; E86.0 Dehydration; E11.22 Type 2 diabetes mellitus with diabetic chronic kidney disease; E11.319 Type 2 diabetes mellitus with unspecified diabetic retinopathy without macular edema; E78.5 Hyperlipidemia, unspecified; H54.62 Unqualified visual loss, left eye, normal vision right eye; H91.91 Unspecified hearing loss, right ear; I25.10 Atherosclerotic heart disease of native coronary artery without angina pectoris; I25.2 Old myocardial infarction; I44.0 Atrioventricular block, first degree; I45.10 Unspecified right bundle-branch block; I65.23 Occlusion and stenosis of bilateral carotid arteries; N18.30 Chronic kidney disease, stage 3 unspecified; Z79.01 Long term (current) use of anticoagulants; Z79.4 Long term (current) use of insulin; Z89.612 Acquired absence of left leg above knee; Z79.82 Long term (current) use of aspirin; Z79.899 Other long term (current) drug therapy; Z82.49 Family history of ischemic heart disease and other diseases of the circulatory system; Z86.711 Personal history of pulmonary embolism; Z89.421 Acquired absence of other right toe(s); Z88.1 Allergy status to other antibiotic agents; Z88.8 Allergy status to other drugs, medicaments and biological substances; Z98.890 Other specified postprocedural states
CPT/HCPCS: 36415; 71046; 80053; 80061; 83605; 83735; 84484; 85025; 85610; 85730; 87040; 87635; 93005; 93306; 96361; 96374; 99285

== ENCOUNTER 2022-05-04 15:21 | Inpatient (IN) | payer MEDICARE ==
[2022-05-04] MEDS ORDERED: DEXTROSE 50% SYRINGE 50 ML IVP STA ×5 (15:32→22:14)
[2022-05-04 15:36] LABS: Glucose,Whole Blood 65 mg/dL (75-99)
[2022-05-04 15:49] LABS: Glucose,Whole Blood 135 mg/dL (75-99)
[2022-05-04 15:56] LABS: Basophils % (A) 0 %; Eosinophils # (A) 0.2 k/uL (0-0.7); Eosinophils % (A) 2 %; HCT 39.1 % (39.0-53.0); HGB 12.7 gm/dL (13.0-17.5); Lymphocytes # (A) 0.4 k/uL (1.0-4.8); Lymphocytes % (A) 5 %; MCH 29.1 pg (25.0-35.0); MCHC 32.6 g/dL (31.0-37.0); MCV 89.3 fL (80.0-100.0); Mean Platelet Volume 8.6; Monocytes # (A) 0.3 k/uL (0-1.0); Monocytes % (A) 4 %; Neutrophils # (A) 7.1 k/uL (1.3-7.7); Neutrophils % (A) 88 %; Platelet Count 140 k/uL (150-450); RBC 4.38 m/uL (4.30-5.90); RDW 14.4 % (11.5-15.5); WBC 8.1 k/uL (3.8-10.6)
[2022-05-04 16:08] LABS: Partial Thromboplastin Time 29.8 sec (22.0-30.0)
--- NOTE | 2022-05-04 16:12 | XR ---
EXAMINATION TYPE: XR chest 2V DATE OF EXAM: 05/04/2022 COMPARISON: X-ray dated 01/28/2022 HISTORY: Altered mental status TECHNIQUE: Frontal and lateral views of the chest are obtained. FINDINGS: Persistent elevation of the right hemidiaphragm. Suspected adjacent pulmonary atelectasis. Grossly un remarkable lungs otherwise. No sizable pleural effusion or definite pneumothorax. No gross cardiomegaly. Degenerative changes of the thoracic spine. IMPRESSION: As above.
--- NOTE | 2022-05-04 16:21 | CT ---
EXAMINATION TYPE: CT brain cspine wo con DATE OF EXAM: 05/04/2022 COMPARISON: CT dated 03/04/2021 HISTORY: unresponsive, ams CT DLP: 1633.5 mGycm Automated exposure control for dose reduction was used. TECHNIQUE: CT scan of the head and cervical spine are performed without contrast. FINDINGS: Left occipital chronic infarct, seen previously. Bilateral anterior frontal areas of ence phalomalacia, possibly representing sequela of previous trauma. Arterial atherosclerotic calcificatio ns. There is no acute intracranial hemorrhage, mass effect, or midline shift identified. The ventric les and sulci are within normal limits in size. The globes are intact. Mucosal thickening of the eth moid air cells and right maxillary sinus. Cervical spine is visualized in its entirety from C1 through upper thoracic levels and demonstrates s atisfactory alignment without evidence of acute fracture or dislocation. Prevertebral soft tissue ap pears within normal limits. The C1-C2 articulation is unremarkable. Right thyroid lobe lesion measur ing up to 3.7 cm, please correlate with thyroid ultrasound results. Scattered arterial atheroscleroti c calcifications. IMPRESSION: 1. There is no acute fracture or dislocation evident in the cervical spine. 2. No acute intracranial hemorrhage, mass effect, or midline shift is seen. 3. Other findings as described above.
[2022-05-04 16:24] LABS: ALT 20 U/L (4-49); AST 22 U/L (17-59); African American GFR (CKD) 35 (>60 ml/min/1.73 sqM); Albumin 3.8 g/dL (3.5-5.0); Alcohol <10 mg/dL; Alkaline Phosphatase 82 U/L (38-126); Anion Gap 7 mmol/L; Blood Urea Nitrogen 42 mg/dL (9-20); Calcium 9.3 mg/dL (8.4-10.2); Carbon Dioxide 24 mmol/L (22-30); Chloride 108 mmol/L (98-107); Creatine Kinase 68 U/L (55-170); Glucose 112 mg/dL (74-99); Non-African American GFR(CKD) 31 (>60 ml/min/1.73 sqM); Potassium 3.2 mmol/L (3.5-5.1); Sodium 139 mmol/L (137-145); Total Bilirubin 0.4 mg/dL (0.2-1.3); Total Protein 6.4 g/dL (6.3-8.2)
[2022-05-04 16:28] LABS: Glucose,Whole Blood 80 mg/dL (75-99)
[2022-05-04 16:46] LABS: Glucose,Whole Blood 56 mg/dL (75-99)
[2022-05-04] MEDS ORDERED: DEXTROSE 5%-0.9% NACL 1,000 ML IV SCH (17:00)
[2022-05-04 17:15] LABS: Appearance,Urine Clear (Clear); Color,Urine Light Yellow; Specific Gravity,Urine 1.011 (1.001-1.035)
[2022-05-04 17:16] LABS: Bacteria,Urine Rare /hpf; Bilirubin,Urine Negative (Negative); Blood,Urine Negative (Negative); Glucose,Urine (UA) 2+ (Negative); Ketones,Urine Negative (Negative); Leukocyte Esterase,Urine Negative (Negative); Mucus,Urine Rare /hpf; Nitrite,Urine Negative (Negative); Protein,Urine 1+ (Negative); RBC,Urine 2 /hpf (0-5); Squamous Epithelial Cell,Urine <1 /hpf (0-4); Urobilinogen,Urine <2.0 mg/dL (<2.0); WBC,Urine <1 /hpf (0-5)
[2022-05-04 17:27] LABS: Amphetamine Screen,Urine Not Detected (NotDetected); Barbiturate Screen,Urine Not Detected (NotDetected); Benzodiazepines Screen,Urine Not Detected (NotDetected); Cocaine Screen,Urine Not Detected (NotDetected); Methadone Screen, Urine Not Detected (NotDetected); Opiate Screen,Urine Not Detected (NotDetected); Oxycodone Screen, Urine Not Detected (NotDetected); Phencyclidine Screen,Urine Not Detected (NotDetected); Tricyclic Antidepressant,Urine Not Detected (NotDetected); Urn Cannabinoid Scrn Not Detected (NotDetected)
--- NOTE | 2022-05-04 17:28 | ED ---
Altered Mental Status HPI - General Chief Complaint: Altered Mental Status Stated Complaint: AMS Time Seen by Provider: 05/04/22 15:21 Source: EMS Mode of arrival: EMS Limitations: altered mental status - History of Present Illness Initial Comments: 76-year-old male with past medical history of heart failure, diabetes, DVT on [place] who presents to the emergency room with altered mental status. History is provided by EMS and who arrives at bedside. Patient awoke this morning and was his normal self. He ate cereal for breakfast. He did take his morning insulin and sat down on the couch. left for work. When she arrived home she had realized that the patient had not moved from his spot on the couch. He was unresponsive. He has had multiple episodes of similar in the past where his glucose went extremely low. His insulin has had to be adjusted several times. She watched him take his insulin this morning and denies that he took any excess. No recent illnesses. The patient did have an episode of emesis for EMS. Has a history of stroke however no residual deficit. EMS found his glucose to be 33 and administered an amp of dextrose. Patient arrives following minimal commands. - Related Data Home Medications Medication Instructions Recorded Confirmed Aspirin EC [Ecotrin Low Dose] 81 mg PO DAILY@1200 06/18/19 05/04/22 Multivitamin/Iron/Folic Acid 1 tab PO DAILY@1200 06/18/19 05/04/22 [Centrum Complete Multivit Tab] Sennosides-Docusate Sodium 1 tab PO DAILY@0800 06/18/19 05/04/22 [Senokot-S] calcitrioL [Calcitriol] 0.5 mcg PO MOWEFR@0800 06/18/19 05/04/22 hydrALAZINE HCL [Apresoline] 100 mg PO TID@0800,1500,199906/18/19 05/04/22 Prazosin HCl 4 mg PO TID@0800,1500,199909/05/19 05/04/22 Apixaban [Eliquis] 5 mg PO BID@0800,199903/04/21 05/04/22 Atorvastatin [Lipitor] 40 mg PO HS@199901/27/22 05/04/22 Carvedilol [Coreg] 25 mg PO BID@0800,199901/27/22 05/04/22 Cholecalciferol (Vitamin D3) 125 mcg PO DAILY@1200 01/27/22 05/04/22 [Vitamin D3 (125 MCG = 5,000 IU)] Isosorbide Mononitrate ER [Imdur] 60 mg PO DAILY@0800 01/27/22 05/04/22 Tamsulosin [Flomax] 0.4 mg PO HS@199901/27/22 05/04/22 cloNIDine HCL [Catapres] 0.2 mg PO TID@0800,1500,199901/27/22 05/04/22 Insulin NPH Hum/Reg Insulin Hm 26 unit SQ W/SUPPER 05/04/22 05/04/22 [humuLIN 70/30 Kwikpen] Insulin NPH Hum/Reg Insulin Hm 36 unit SQ W/BRKFST 05/04/22 05/04/22 [humuLIN 70/30 Kwikpen] Allergies Allergy/AdvReac Type Severity Reaction Status Date / Time amlodipine Allergy Anaphylaxis Verified 05/04/22 17:20 lisinopril Allergy tongue Verified 05/04/22 17:20 swelling vancomycin Allergy seizure Verified 05/04/22 17:20 like activity Review of Systems ROS Statement: Those systems with pertinent positive or pertinent negative responses have been documented in the HPI. ROS Other: All systems not noted in ROS Statement are negative. Past Medical History Past Medical History: Heart Failure, Diabetes Mellitus, Deep Vein Thrombosis (DVT), Hyperlipidemia, Hypertension, Syncope Additional Past Medical History / Comment(s): 11-301-8 pt wants flu vaccine while here. other hx:per pt's "xray noted lung nodules". 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, L foot gr toe, 3rd &2nd toe amputated; Rfoot 3rd toe amputated, Bypass in Bilat legs, eulogio knee sx(cartilage), lt arm picc line.since removed, x3 sx total facial plastic sx and grafting done area under lt eye d/t injury, Ackerman placement.-rt upper chest Past Anesthesia/Blood Transfusion Reactions: Postoperative Nausea & Vomiting (PONV) Additional Past Anesthesia/Blood Transfusion Reaction / Comment(s): never recieved blood Past Psychological History: No Psychological Hx Reported Smoking Status: Never smoker Past Alcohol Use History: None Reported Past Drug Use History: None Reported - Past Family History Father Family Medical History: Deep Vein Thrombosis (DVT) Additional Family Medical History / Comment(s): had valve sx- a week later from complications Mother Family Medical History: Congestive Heart Failure (CHF) Additional Family Medical History / Comment(s): phlebitis General Exam Limitations: altered mental status Course Vital Signs 05/04/22 05/04/22 15:33 16:21 Temperature 93.0 F L 93.4 F L Pulse Rate 68 65 Respiratory 18 19 Rate Blood Pressure 180/76 193/88 O2 Sat by Pulse 95 99 Oximetry Procedures - [place] Protocol (Time Out) Nurse: Joaquín Patel Medical Decision Making - Medical Decision Making Upon arrival patient's placed into trauma 1. A thorough physical exam is performed. He is placed on continuous pulse ox and cardiac monitoring. We did recheck the patient's glucose and it is 65. Patient is administered a second amp of dextrose. Laboratory studies are obtained and the patient does go over for a CT of his head. Chest x-ray also performed. Review the patient's labs demonstrate a potassium of 3.2. Creatinine 2.07 which is from the patient's baseline. Troponin mildly elevated at 0.041. CT of the patient's brain does not demonstrate any acute process. No acute fracture dislocation evident in the cervical spine. No acute intracranial hemorrhage, mass effect or midline shift. Chest x-ray demonstrates persistent elevation of the right hemidiaphragm. Suspected adjacent pulmonary atelectasis. Patient does have audible coarse breath sounds and therefore will be covered with antibiotics for aspiration. Repetitive glucose checks symmetry of the patient's blood sugar continues to drop and therefore he is placed on a D5 drip. Patient will be admitted to Dr. Crockett. His vitals remained stable while awaiting a bed on the floor - Lab Data Result diagrams: 05/04/22 15:34 05/04/22 15:34 Lab Results 05/04/22 05/04/22 05/04/22 Range/Units 14:45 15:27 15:34 WBC 8.1 (3.8-10.6) k/uL RBC 4.38 (4.30-5.90) m/uL Hgb 12.7 L (13.0-17.5) gm/dL Hct 39.1 (39.0-53.0) % MCV 89.3 (80.0-100.0) fL MCH 29.1 (25.0-35.0) pg MCHC 32.6 (31.0-37.0) g/dL RDW 14.4 (11.5-15.5) % Plt Count 140 L (150-450) k/uL MPV 8.6 Neutrophils % 88 % Lymphocytes % 5 % Monocytes % 4 % Eosinophils % 2 % Basophils % 0 % Neutrophils # 7.1 (1.3-7.7) k/uL Lymphocytes # 0.4 L (1.0-4.8) k/uL Monocytes # 0.3 (0-1.0) k/uL Eosinophils # 0.2 (0-0.7) k/uL Basophils # 0.0 (0-0.2) k/uL PT (9.0-12.0) sec INR (<1.2) APTT (22.0-30.0) sec Sodium (137-145) mmol/L Potassium (3.5-5.1) mmol/L Chloride (98-107) mmol/L Carbon Dioxide (22-30) mmol/L Anion Gap mmol/L BUN (9-20) mg/dL Creatinine (0.66-1.25) mg/dL Est GFR (CKD-EPI)AfAm (>60 ml/min/1.73 sqM) Est GFR (CKD-EPI)NonAf (>60 ml/min/1.73 sqM) Glucose (74-99) mg/dL POC Glucose (mg/dL) 65 L (75-99) mg/dL POC Glu Electronics Technician Apprentice ID Juan, Asmara Calcium (8.4-10.2) mg/dL Total Bilirubin (0.2-1.3) mg/dL AST (17-59) U/L ALT (4-49) U/L Alkaline Phosphatase (38-126) U/L Ammonia (<30) umol/L Creatine Kinase (55-170) U/L Troponin I (0.000-0.034) ng/mL Total Protein (6.3-8.2) g/dL Albumin (3.5-5.0) g/dL TSH (0.465-4.680) mIU/L Urine Color Light Yellow Urine Appearance Clear (Clear) Urine pH 7.0 (5.0-8.0) Ur Specific [place] 1.011 (1.001-1.035) Urine Protein 1+ H (Negative) Urine Glucose (UA) 2+ H (Negative) Urine Ketones Negative (Negative) Urine Blood Negative (Negative) Urine Nitrite Negative (Negative) Urine Bilirubin Negative (Negative) Urine Urobilinogen <2.0 (<2.0) mg/dL Ur Leukocyte Esterase Negative (Negative) Urine RBC 2 (0-5) /hpf Urine WBC <1 (0-5) /hpf Ur Squamous Epith Cells <1 (0-4) /hpf Urine Bacteria Rare H (None) /hpf Urine Mucus Rare H (None) /hpf Urine Opiates Screen Not Detected (NotDetected) Ur Oxycodone Screen Not Detected (NotDetected) Urine Methadone Screen Not Detected (NotDetected) Ur Propoxyphene Screen Not Detected (NotDetected) Ur Barbiturates Screen Not Detected (NotDetected) U Tricyclic Antidepress Not Detected (NotDetected) Ur Phencyclidine Scrn Not Detected (NotDetected) Ur Amphetamines Screen Not Detected (NotDetected) U Methamphetamines Scrn Not Detected (NotDetected) U Benzodiazepines Scrn Not Detected (NotDetected) Urine Cocaine Screen Not Detected (NotDetected) U Marijuana (THC) Screen Not Detected (NotDetected) Serum Alcohol mg/dL 05/04/22 05/04/22 05/04/22 Range/Units 15:34 15:34 15:34 WBC (3.8-10.6) k/uL RBC (4.30-5.90) m/uL Hgb (13.0-17.5) gm/dL Hct (39.0-53.0) % MCV (80.0-100.0) fL MCH (25.0-35.0) pg MCHC (31.0-37.0) g/dL RDW (11.5-15.5) % Plt Count (150-450) k/uL MPV Neutrophils % % Lymphocytes % % Monocytes % % Eosinophils % % Basophils % % Neutrophils # (1.3-7.7) k/uL Lymphocytes # (1.0-4.8) k/uL Monocytes # (0-1.0) k/uL Eosinophils # (0-0.7) k/uL Basophils # (0-0.2) k/uL PT 11.0 (9.0-12.0) sec INR 1.0 (<1.2) APTT 29.8 (22.0-30.0) sec Sodium 139 (137-145) mmol/L Potassium 3.2 L (3.5-5.1) mmol/L Chloride 108 H (98-107) mmol/L Carbon Dioxide 24 (22-30) mmol/L Anion Gap 7 mmol/L BUN 42 H (9-20) mg/dL Creatinine 2.07 H (0.66-1.25) mg/dL Est GFR (CKD-EPI)AfAm 35 (>60 ml/min/1.73 sqM) Est GFR (CKD-EPI)NonAf 31 (>60 ml/min/1.73 sqM) Glucose 112 H (74-99) mg/dL POC Glucose (mg/dL) (75-99) mg/dL POC Glu Electronics Technician Apprentice ID Calcium 9.3 (8.4-10.2) mg/dL Total Bilirubin 0.4 (0.2-1.3) mg/dL AST 22 (17-59) U/L ALT 20 (4-49) U/L Alkaline Phosphatase 82 (38-126) U/L Ammonia <9 (<30) umol/L Creatine Kinase 68 (55-170) U/L Troponin I (0.000-0.034) ng/mL Total Protein 6.4 (6.3-8.2) g/dL Albumin 3.8 (3.5-5.0) g/dL TSH 2.350 (0.465-4.680) mIU/L Urine Color Urine Appearance (Clear) Urine pH (5.0-8.0) Ur Specific [place] (1.001-1.035) Urine Protein (Negative) Urine Glucose (UA) (Negative) Urine Ketones (Negative) Urine Blood (Negative) Urine Nitrite (Negative) Urine Bilirubin (Negative) Urine Urobilinogen (<2.0) mg/dL Ur Leukocyte Esterase (Negative) Urine RBC (0-5) /hpf Urine WBC (0-5) /hpf Ur Squamous Epith Cells (0-4) /hpf Urine Bacteria (None) /hpf Urine Mucus (None) /hpf Urine Opiates Screen (NotDetected) Ur Oxycodone Screen (NotDetected) Urine Methadone Screen (NotDetected) Ur Propoxyphene Screen (NotDetected) Ur Barbiturates Screen (NotDetected) U Tricyclic Antidepress (NotDetected) Ur Phencyclidine Scrn (NotDetected) Ur Amphetamines Screen (NotDetected) U Methamphetamines Scrn (NotDetected) U Benzodiazepines Scrn (NotDetected) Urine Cocaine Screen (NotDetected) U Marijuana (THC) Screen (NotDetected) Serum Alcohol <10 mg/dL 05/04/22 05/04/22 05/04/22 Range/Units 15:34 15:47 16:16 WBC (3.8-10.6) k/uL RBC (4.30-5.90) m/uL Hgb (13.0-17.5) gm/dL Hct (39.0-53.0) % MCV (80.0-100.0) fL MCH (25.0-35.0) pg MCHC (31.0-37.0) g/dL RDW (11.5-15.5) % Plt Count (150-450) k/uL MPV Neutrophils % % Lymphocytes % % Monocytes % % Eosinophils % % Basophils % % Neutrophils # (1.3-7.7) k/uL Lymphocytes # (1.0-4.8) k/uL Monocytes # (0-1.0) k/uL Eosinophils # (0-0.7) k/uL Basophils # (0-0.2) k/uL PT (9.0-12.0) sec INR (<1.2) APTT (22.0-30.0) sec Sodium (137-145) mmol/L Potassium (3.5-5.1) mmol/L Chloride (98-107) mmol/L Carbon Dioxide (22-30) mmol/L Anion Gap mmol/L BUN (9-20) mg/dL Creatinine (0.66-1.25) mg/dL Est GFR (CKD-EPI)AfAm (>60 ml/min/1.73 sqM) Est GFR (CKD-EPI)NonAf (>60 ml/min/1.73 sqM) Glucose (74-99) mg/dL POC Glucose (mg/dL) 135 H 80 (75-99) mg/dL POC Glu Electronics Technician Apprentice ID Juan, Asmara Juan, Asmara Calcium (8.4-10.2) mg/dL Total Bilirubin (0.2-1.3) mg/dL AST (17-59) U/L ALT (4-49) U/L Alkaline Phosphatase (38-126) U/L Ammonia (<30) umol/L Creatine Kinase (55-170) U/L Troponin I 0.041 H* (0.000-0.034) ng/mL Total Protein (6.3-8.2) g/dL Albumin (3.5-5.0) g/dL TSH (0.465-4.680) mIU/L Urine Color Urine Appearance (Clear) Urine pH (5.0-8.0) Ur Specific [place] (1.001-1.035) Urine Protein (Negative) Urine Glucose (UA) (Negative) Urine Ketones (Negative) Urine Blood (Negative) Urine Nitrite (Negative) Urine Bilirubin (Negative) Urine Urobilinogen (<2.0) mg/dL Ur Leukocyte Esterase (Negative) Urine RBC (0-5) /hpf Urine WBC (0-5) /hpf Ur Squamous Epith Cells (0-4) /hpf Urine Bacteria (None) /hpf Urine Mucus (None) /hpf Urine Opiates Screen (NotDetected) Ur Oxycodone Screen (NotDetected) Urine Methadone Screen (NotDetected) Ur Propoxyphene Screen (NotDetected) Ur Barbiturates Screen (NotDetected) U Tricyclic Antidepress (NotDetected) Ur Phencyclidine Scrn (NotDetected) Ur Amphetamines Screen (NotDetected) U Methamphetamines Scrn (NotDetected) U Benzodiazepines Scrn (NotDetected) Urine Cocaine Screen (NotDetected) U Marijuana (THC) Screen (NotDetected) Serum Alcohol mg/dL 05/04/22 Range/Units 16:44 WBC (3.8-10.6) k/uL RBC (4.30-5.90) m/uL Hgb (13.0-17.5) gm/dL Hct (39.0-53.0) % MCV (80.0-100.0) fL MCH (25.0-35.0) pg MCHC (31.0-37.0) g/dL RDW (11.5-15.5) % Plt Count (150-450) k/uL MPV Neutrophils % % Lymphocytes % % Monocytes % % Eosinophils % % Basophils % % Neutrophils # (1.3-7.7) k/uL Lymphocytes # (1.0-4.8) k/uL Monocytes # (0-1.0) k/uL Eosinophils # (0-0.7) k/uL Basophils # (0-0.2) k/uL PT (9.0-12.0) sec INR (<1.2) APTT (22.0-30.0) sec Sodium (137-145) mmol/L Potassium (3.5-5.1) mmol/L Chloride (98-107) mmol/L Carbon Dioxide (22-30) mmol/L Anion Gap mmol/L BUN (9-20) mg/dL Creatinine (0.66-1.25) mg/dL Est GFR (CKD-EPI)AfAm (>60 ml/min/1.73 sqM) Est GFR (CKD-EPI)NonAf (>60 ml/min/1.73 sqM) Glucose (74-99) mg/dL POC Glucose (mg/dL) 56 L (75-99) mg/dL POC Glu Electronics Technician Apprentice ID Joaquín Patel Calcium (8.4-10.2) mg/dL Total Bilirubin (0.2-1.3) mg/dL AST (17-59) U/L ALT (4-49) U/L Alkaline Phosphatase (38-126) U/L Ammonia (<30) umol/L Creatine Kinase (55-170) U/L Troponin I (0.000-0.034) ng/mL Total Protein (6.3-8.2) g/dL Albumin (3.5-5.0) g/dL TSH (0.465-4.680) mIU/L Urine Color Urine Appearance (Clear) Urine pH (5.0-8.0) Ur Specific [place] (1.001-1.035) Urine Protein (Negative) Urine Glucose (UA) (Negative) Urine Ketones (Negative) Urine Blood (Negative) Urine Nitrite (Negative) Urine Bilirubin (Negative) Urine Urobilinogen (<2.0) mg/dL Ur Leukocyte Esterase (Negative) Urine RBC (0-5) /hpf Urine WBC (0-5) /hpf Ur Squamous Epith Cells (0-4) /hpf Urine Bacteria (None) /hpf Urine Mucus (None) /hpf Urine Opiates Screen (NotDetected) Ur Oxycodone Screen (NotDetected) Urine Methadone Screen (NotDetected) Ur Propoxyphene Screen (NotDetected) Ur Barbiturates Screen (NotDetected) U Tricyclic Antidepress (NotDetected) Ur Phencyclidine Scrn (NotDetected) Ur Amphetamines Screen (NotDetected) U Methamphetamines Scrn (NotDetected) U Benzodiazepines Scrn (NotDetected) Urine Cocaine Screen (NotDetected) U Marijuana (THC) Screen (NotDetected) Serum Alcohol mg/dL - EKG Data EKG Comments: EKG demonstrates sinus rhythm with a rate of 69. [place] interval 325. QRS 142. QTC of 505. No acute ST segment elevation. ST depression 2, aVF, V3 through V6. EKG similar in morphology as last EKG. Disposition Clinical Impression: Hypoglycemia, CKD (chronic kidney disease), Hypothermia, Acute encephalopathy Disposition: ADMITTED IP TO THIS HOSP Condition: Serious Is patient prescribed a controlled substance at d/c from ED?: No Referrals: Jack De Jesus MD [Primary Care Provider] - 1-2 days Time of Disposition: 17:28 Decision to Admit Reason: Admit from EC Decision Date: 05/04/22 Decision Time: 17:28
[2022-05-04] MEDS ORDERED: NALOXONE 0.4 MG/ML 1 ML VIAL IV PRN (17:39)
[2022-05-04] MEDS ORDERED: cefTRIAXone IN SWFI 1,000 MG/10 ML SYRINGE IVP STA (17:43)
[2022-05-04 17:56] LABS: Glucose,Whole Blood 68 mg/dL (75-99)
[2022-05-04] MEDS ORDERED: LACTULOSE 20 GM/30 ML CUP PO PRN (18:39)
[2022-05-04] MEDS ORDERED: ONDANSETRON 4 MG/2 ML VIAL IVP PRN (18:39)
[2022-05-04] MEDS ORDERED: ACETAMINOPHEN TAB 325 MG TAB PO PRN (18:39)
[2022-05-04] MEDS ORDERED: CALCIUM CARBONATE 500 MG CHEWABLE PO PRN (18:39)
[2022-05-04] MEDS ORDERED: LORazepam 0.5 MG TAB PO PRN (18:39)
[2022-05-04 18:51] LABS: Glucose,Whole Blood 95 mg/dL (75-99)
--- NOTE | 2022-05-04 18:51 | P.HPIM ---
History of Present Illness H&P Date: 05/04/22 Chief Complaint: Low sugar History of presenting complaint: This is a pleasant 76-year-old patient who follows with Dr. Jack De Jesus. Chronic stable medical conditions include diabetes mellitus type 2 on insulin, causing peripheral neuropathy and diabetic retinopathy, hypertension, hyperlipidemia, chronic kidney disease stage III, CHF from diastolic dysfunction, severe peripheral arterial disease, coronary artery disease not a candidate for surgical intervention, essential hypertension. Poor vision in left eye. As per the at the bedside to give the history: Patient woke up this morning and was normal self. He ate milk and cereal for breakfast. Took his morning insulin sent on the couch. left for work. When came back she found that the patient and notable from the spot of the couch. He was unresponsive. In the past he's episodes called the patient to be hypoglycemic. Has had his insulin adjusted multiple times. Patient took his dose of insulin in front of the . No fever no chills. EMS found the glucose to be 33. And patient received an amp of dextrose. Patient rather lethargic. Just about arousable. Put on D5W drip. Review of systems cannot be done as patient rather drowsy Past medical history: diabetes mellitus type 2 on insulin, causing peripheral neuropathy and diabetic retinopathy, hypertension, hyperlipidemia, chronic kidney disease stage III, CHF from diastolic dysfunction, severe peripheral arterial disease, coronary artery disease not a candidate for surgical intervention, essential hypertension. 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 No alcohol or smoking history. Family history: DVT Physical examination: VITAL SIGNS: 92.7, 78, 18, 184-88, 98% room air GENERAL: Laying in bed, lethargic EYES: Pupils equal. Conjunctiva normal. HEENT: External appearance of nose and ears normal, oral cavity grossly normal. NECK: JVD not raised; masses not palpable. HEART: First and second heart sounds are normal; no edema. LUNGS: Respiratory rate normal; decreased breath sounds. ABDOMEN: Soft, nontender, liver spleen not palpable, no masses palpable. PSYCH: Unable to assess MUSCULOSKELETAL:No Clubbing/cyanosis;muscles-grossly intact NEUROLOGICAL: Cranial nerves grossly intact; no facial asymmetry, power and sensation grossly intact. EXTREMITIES: Left above knee amputation INVESTIGATIONS, reviewed in the clinical context: White count 8.1 hemoglobin 12.7 platelets 140 potassium 3.2 BUN 42 creatinine 2. 07 Troponin I 0.041 TSH 2.3 EKG tracing personally reviewed by me-normal sinus rhythm. First-degree AV block. Some ST segment changes in inferolateral leads. Chest x-ray film personally reviewed by me-some elevation right diaphragm. Previous labs: Creatinine 2.08 on 01/28/2022 Assessment and plan: -Acute severe metabolic encephalopathy from hypoglycemia. -Severe hypoglycemia Patient known to have rather brittle diabetes. Currently hold off insulin. Follow Accu-Cheks closely. Hypoglycemia protocol. -Diabetes mellitus type 2, chronically on insulin causing peripheral neuropathy, diabetic retinopathy Follow Accu-Cheks and sliding scale. -Hypothermia. Likely from severe hypoglycemia. Tanya flannery -Essential hypertension Continue with Coreg, Catapres, hydralazine, Minipress -Hyperlipidemia Continue with Lipitor -Chronic kidney disease stage III from diabetic nephropathy and hypertensive nephrosclerosis Follow renal function -Chronic congestive heart failure from diastolic dysfunction EF 50-55% Follow fluid status -Severe peripheral arterial disease Continue with aspirin -Coronary artery disease not a candidate for surgical intervention Continue with Coreg, Lipitor, Imdur -Decreased hearing in the right ear -Decreased vision in the left eye chronic -Left above-knee amputation Tanya flannery. Hypoglycemia protocol. On insulin. Follow Accu-Cheks. Other medications to continue. Care was discussed with the at the bedside. Questions answered. Past Medical History Past Medical History: Heart Failure, Diabetes Mellitus, Deep Vein Thrombosis (DVT), Hyperlipidemia, Hypertension, Syncope Additional Past Medical History / Comment(s): - pt wants flu vaccine while here. other hx:per pt's "xray noted lung nodules". 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, L foot gr toe, 3rd &2nd toe amputated; Rfoot 3rd toe amputated, Bypass in Bilat legs, eulogio knee sx(cartilage), lt arm picc line.since removed, x3 sx total facial plastic sx and grafting done area under lt eye d/t injury, Ackerman placement.-rt upper chest Past Anesthesia/Blood Transfusion Reactions: Postoperative Nausea & Vomiting (PONV) Additional Past Anesthesia/Blood Transfusion Reaction / Comment(s): never recieved blood Past Psychological History: No Psychological Hx Reported Smoking Status: Never smoker Past Alcohol Use History: None Reported Past Drug Use History: None Reported - Past Family History Father Family Medical History: Deep Vein Thrombosis (DVT) Additional Family Medical History / Comment(s): had valve sx- a week later from complications Mother Family Medical History: Congestive Heart Failure (CHF) Additional Family Medical History / Comment(s): phlebitis Medications and Allergies Home Medications Medication Instructions Recorded Confirmed Type Aspirin EC [Ecotrin Low Dose] 81 mg PO DAILY@1200 06/18/19 05/04/22 History Multivitamin/Iron/Folic Acid 1 tab PO DAILY@1200 06/18/19 05/04/22 History [Centrum Complete Multivit Tab] Sennosides-Docusate Sodium 1 tab PO DAILY@0800 06/18/19 05/04/22 History [Senokot-S] calcitrioL [Calcitriol] 0.5 mcg PO MOWEFR@0800 06/18/19 05/04/22 History hydrALAZINE HCL [Apresoline] 100 mg PO TID@0800,1500,199906/18/19 05/04/22 History Prazosin HCl 4 mg PO TID@0800,1500,199909/05/19 05/04/22 History Apixaban [Eliquis] 5 mg PO BID@0800,199903/04/21 05/04/22 History Atorvastatin [Lipitor] 40 mg PO HS@199901/27/22 05/04/22 History Carvedilol [Coreg] 25 mg PO BID@0800,199901/27/22 05/04/22 History Cholecalciferol (Vitamin D3) 125 mcg PO DAILY@1200 01/27/22 05/04/22 History [Vitamin D3 (125 MCG = 5,000 IU)] Isosorbide Mononitrate ER [Imdur] 60 mg PO DAILY@0800 01/27/22 05/04/22 History Tamsulosin [Flomax] 0.4 mg PO HS@199901/27/22 05/04/22 History cloNIDine HCL [Catapres] 0.2 mg PO TID@0800,1500,199901/27/22 05/04/22 History Insulin NPH Hum/Reg Insulin Hm 26 unit SQ W/SUPPER 05/04/22 05/04/22 History [humuLIN 70/30 Kwikpen] Insulin NPH Hum/Reg Insulin Hm 36 unit SQ W/BRKFST 05/04/22 05/04/22 History [humuLIN 70/30 Kwikpen] Allergies Allergy/AdvReac Type Severity Reaction Status Date / Time amlodipine Allergy Anaphylaxis Verified 05/04/22 17:20 lisinopril Allergy tongue Verified 05/04/22 17:20 swelling vancomycin Allergy seizure Verified 05/04/22 17:20 like activity Physical Exam Vitals: Vital Signs Temp Pulse Resp BP Pulse Ox 05/04/22 18:17 92.7 F L 78 18 184/88 98 05/04/22 16:21 93.4 F L 65 19 193/88 99 05/04/22 15:33 93.0 F L 68 18 180/76 95 Intake and Output 05/04/22 05/04/22 05/04/22 06:59 14:59 22:59 Other: Weight 102.058 kg Results CBC & Chem 7: 05/04/22 15:34 05/04/22 15:34 Labs: Abnormal Lab Results - Last 24 Hours (Table) 05/04/22 05/04/22 05/04/22 Range/Units 14:45 15:27 15:34 Hgb 12.7 L (13.0-17.5) gm/dL Plt Count 140 L (150-450) k/uL Lymphocytes # 0.4 L (1.0-4.8) k/uL Potassium (3.5-5.1) mmol/L Chloride (98-107) mmol/L BUN (9-20) mg/dL Creatinine (0.66-1.25) mg/dL Glucose (74-99) mg/dL POC Glucose (mg/dL) 65 L (75-99) mg/dL Troponin I (0.000-0.034) ng/mL Urine Protein 1+ H (Negative) Urine Glucose (UA) 2+ H (Negative) Urine Bacteria Rare H (None) /hpf Urine Mucus Rare H (None) /hpf 05/04/22 05/04/22 05/04/22 Range/Units 15:34 15:34 15:47 Hgb (13.0-17.5) gm/dL Plt Count (150-450) k/uL Lymphocytes # (1.0-4.8) k/uL Potassium 3.2 L (3.5-5.1) mmol/L Chloride 108 H (98-107) mmol/L BUN 42 H (9-20) mg/dL Creatinine 2.07 H (0.66-1.25) mg/dL Glucose 112 H (74-99) mg/dL POC Glucose (mg/dL) 135 H (75-99) mg/dL Troponin I 0.041 H* (0.000-0.034) ng/mL Urine Protein (Negative) Urine Glucose (UA) (Negative) Urine Bacteria (None) /hpf Urine Mucus (None) /hpf 05/04/22 05/04/22 Range/Units 16:44 17:56 Hgb (13.0-17.5) gm/dL Plt Count (150-450) k/uL Lymphocytes # (1.0-4.8) k/uL Potassium (3.5-5.1) mmol/L Chloride (98-107) mmol/L BUN (9-20) mg/dL Creatinine (0.66-1.25) mg/dL Glucose (74-99) mg/dL POC Glucose (mg/dL) 56 L 68 L (75-99) mg/dL Troponin I (0.000-0.034) ng/mL Urine Protein (Negative) Urine Glucose (UA) (Negative) Urine Bacteria (None) /hpf Urine Mucus (None) /hpf
[2022-05-04 19:55] LABS: Glucose,Whole Blood 60 mg/dL (75-99)
[2022-05-04 20:34] LABS: Glucose,Whole Blood 109 mg/dL (75-99)
[2022-05-04] MEDS: hydrALAZINE HCL 50 MG TAB PO SCH (20:34)
[2022-05-04] MEDS: carvediloL 12.5 MG TAB PO SCH (20:34)
[2022-05-04] MEDS: ATORVASTATIN 40 MG TAB PO SCH (20:34)
[2022-05-04] MEDS: PRAZOSIN 1 MG CAP PO SCH (20:34)
[2022-05-04] MEDS: cloNIDine HCL 0.2 MG TAB PO SCH (20:35)
[2022-05-04] MEDS: APIXABAN 5 MG TAB PO SCH (20:35)
[2022-05-04] MEDS: TAMSULOSIN 0.4 MG CAP.ER.24H PO SCH (20:35)
[2022-05-04 22:09] LABS: Glucose,Whole Blood 48 mg/dL (75-99)
[2022-05-04 22:44] LABS: Glucose,Whole Blood 121 mg/dL (75-99)
[2022-05-04] MEDS: DEXTROSE 10% IN WATER 1,000 ML with SODIUM CHLORIDE 4MEQ/ML VIAL 153.8 MEQ IV SCH (23:10)
[2022-05-04 23:52] LABS: Glucose,Whole Blood 57 mg/dL (75-99)
[2022-05-05 00:20] LABS: Glucose,Whole Blood 51 mg/dL (75-99)
[2022-05-05] MEDS ORDERED: DEXTROSE 50% SYRINGE 50 ML IVP STA (00:22)
[2022-05-05 01:46] LABS: Glucose,Whole Blood 71 mg/dL (75-99)
[2022-05-05 02:47] LABS: Glucose,Whole Blood 61 mg/dL (75-99)
[2022-05-05 03:47] LABS: Glucose,Whole Blood 58 mg/dL (75-99)
[2022-05-05 04:46] LABS: Glucose,Whole Blood 63 mg/dL (75-99)
[2022-05-05 05:48] LABS: Glucose,Whole Blood 52 mg/dL (75-99)
[2022-05-05 06:48] LABS: Glucose,Whole Blood 61 mg/dL (75-99)
[2022-05-05 07:46] LABS: Glucose,Whole Blood 62 mg/dL (75-99)
[2022-05-05 08:15] LABS: Glucose,Whole Blood 64 mg/dL (75-99)
[2022-05-05] MEDS: PRAZOSIN 1 MG CAP PO SCH ×3 (08:15→21:29)
[2022-05-05] MEDS: APIXABAN 5 MG TAB PO SCH ×2 (08:15→20:33)
[2022-05-05] MEDS: cloNIDine HCL 0.2 MG TAB PO SCH ×3 (08:16→20:33)
[2022-05-05] MEDS: ASPIRIN 81 MG PO SCH (08:16)
[2022-05-05] MEDS: carvediloL 12.5 MG TAB PO SCH ×2 (08:16→20:32)
[2022-05-05] MEDS: ISOSORBIDE MONONITRATE ER 60 MG TAB.ER.24H PO SCH (08:16)
[2022-05-05] MEDS: hydrALAZINE HCL 50 MG TAB PO SCH ×3 (08:16→20:32)
[2022-05-05 08:21] LABS: Glucose,Whole Blood 77 mg/dL (75-99)
[2022-05-05 08:51] LABS: Glucose,Whole Blood 123 mg/dL (75-99)
[2022-05-05 09:05] LABS: Basophils % (A) 0 %; Eosinophils # (A) 0.1 k/uL (0-0.7); Eosinophils % (A) 1 %; HCT 38.6 % (39.0-53.0); HGB 12.5 gm/dL (13.0-17.5); Lymphocytes # (A) 0.5 k/uL (1.0-4.8); Lymphocytes % (A) 4 %; MCHC 32.5 g/dL (31.0-37.0); MCV 89.2 fL (80.0-100.0); Mean Platelet Volume 8.8; Monocytes # (A) 0.8 k/uL (0-1.0); Monocytes % (A) 6 %; Neutrophils # (A) 11.9 k/uL (1.3-7.7); Neutrophils % (A) 88 %; Platelet Count 146 k/uL (150-450); RBC 4.33 m/uL (4.30-5.90); RDW 14.5 % (11.5-15.5); WBC 13.6 k/uL (3.8-10.6)
[2022-05-05 09:07] LABS: Calcium 8.7 mg/dL (8.4-10.2); Potassium 3.9 mmol/L (3.5-5.1)
[2022-05-05 10:56] LABS: Glucose,Whole Blood 202 mg/dL (75-99)
[2022-05-05 11:33] LABS: Glucose,Whole Blood 194 mg/dL (75-99)
[2022-05-05] MEDS: DEXTROSE 10% IN WATER 1,000 ML with SODIUM CHLORIDE 4MEQ/ML VIAL 153.8 MEQ IV SCH ×2 (11:40→21:29)
[2022-05-05] MEDS ORDERED: INSULN ASP PRT/INSULIN ASPART 100 UNIT/ML 10 ML VIAL SQ SCH (12:30)
--- NOTE | 2022-05-05 13:31 | P.PN ---
Progress Note - Text Progress Note Date: 05/05/22 Chief Complaint: Low sugar History of presenting complaint: This is a pleasant 76-year-old patient who follows with Dr. Jack De Jesus. Chronic stable medical conditions include diabetes mellitus type 2 on insulin, causing peripheral neuropathy and diabetic retinopathy, hypertension, hyperlipidemia, chronic kidney disease stage III, CHF from diastolic dysfunction, severe peripheral arterial disease, coronary artery disease not a candidate for surgical intervention, essential hypertension. Poor vision in left eye. As per the at the bedside to give the history: Patient woke up this morning and was normal self. He ate milk and cereal for breakfast. Took his morning insulin sent on the couch. left for work. When came back she found that the patient and notable from the spot of the couch. He was unresponsive. In the past he's episodes called the patient to be hypoglycemic. Has had his insulin adjusted multiple times. Patient took his dose of insulin in front of the . No fever no chills. EMS found the glucose to be 33. And patient received an amp of dextrose. Patient rather lethargic. Just about arousable. Put on D5W drip. May 05: Patient more awake today. Tired. Did eat some breakfast. Patient states that he normally has a small breakfast about 7:00 AM of cereal and milk. Maybe and eggs. Normally has a sandwich for lunch around known. Normally has a hour hold some dinner around 6 PM. Discussed with him to increase his breakfast amount and have shown 8:30 to 9:00. Active Medications Acetaminophen (Acetaminophen Tab 325 Mg Tab) 650 mg PO Q6HR PRN PRN Reason: Mild Pain or Fever > 100.5 Apixaban (Apixaban 5 Mg Tab) 5 mg PO BID@799,1999 [facility]; Protocol Last Admin: 05/05/22 08:15 Dose: 5 mg Aspirin (Aspirin 81 Mg) 81 mg PO DAILY@1199 [facility] Last Admin: 05/05/22 08:16 Dose: 81 mg Atorvastatin Calcium (Atorvastatin 40 Mg Tab) 40 mg PO HS@1999 [facility] Last Admin: 05/04/22 20:34 Dose: 40 mg Calcium Carbonate/Glycine (Calcium Carbonate 500 Mg Chewable) 1,000 mg PO Q4HR PRN PRN Reason: Dyspepsia Carvedilol (Carvedilol 12.5 Mg Tab) 25 mg PO BID@ [facility] Last Admin: 05/05/22 08:16 Dose: 25 mg Clonidine (Clonidine Hcl 0.2 Mg Tab) 0.2 mg PO TID@799, [facility] Last Admin: 05/05/22 08:16 Dose: 0.2 mg Hydralazine HCl (Hydralazine Hcl 50 Mg Tab) 100 mg PO TID@0800, [facility] Last Admin: 05/05/22 08:16 Dose: 100 mg Sodium Chloride 153.8 meq/ (Dextrose/Water) 1,038.45 mls @ 75 mls/hr IV .[id number] [facility] Last Admin: 05/05/22 11:40 Dose: Not Given Insulin Aspart (Insuln Asp Prt/Insulin Aspart 100 Unit/Ml 10 Ml Vial) 20 unit SQ W/SUPPER [facility] Insulin Aspart (Insuln Asp Prt/Insulin Aspart 100 Unit/Ml 10 Ml Vial) 20 unit SQ W/BRKFST [facility] Insulin Aspart (Insuln Asp Prt/Insulin Aspart 100 Unit/Ml 10 Ml Vial) 6 unit SQ AC-LUNCH [facility] Isosorbide Mononitrate (Isosorbide Mononitrate Er 60 Mg Tab.Er.24h) 60 mg PO DAILY@08 [facility] Last Admin: 05/05/22 08:16 Dose: 60 mg Lactulose (Lactulose 20 Gm/30 Ml Cup) 20 gm PO DAILY PRN PRN Reason: Constipation Lorazepam (Lorazepam 0.5 Mg Tab) 0.5 mg PO Q6HR PRN PRN Reason: Anxiety Naloxone HCl (Naloxone 0.4 Mg/Ml 1 Ml Vial) 0.2 mg IV Q2M PRN PRN Reason: Opioid Reversal Ondansetron HCl (Ondansetron 4 Mg/2 Ml Vial) 4 mg IVP Q8HR PRN PRN Reason: Nausea And Vomiting Last Admin: 05/04/22 20:38 Dose: 4 mg Prazosin HCl (Prazosin 1 Mg Cap) 4 mg PO TID@799, [facility] Last Admin: 05/05/22 08:15 Dose: 4 mg Sodium Bicarbonate (Sodium Bicarbonate Tab 650 Mg Tab) 650 mg PO TID [facility] Tamsulosin HCl (Tamsulosin 0.4 Mg Cap.Er.24h) 0.4 mg PO HS@1999 [facility] Last Admin: 05/04/22 20:35 Dose: 0.4 mg Past medical history: diabetes mellitus type 2 on insulin, causing peripheral neuropathy and diabetic retinopathy, hypertension, hyperlipidemia, chronic kidney disease stage III, CHF from diastolic dysfunction, severe peripheral arterial disease, coronary artery disease not a candidate for surgical intervention, essential hypertension. 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 Family history: DVT Physical examination: VITAL SIGNS: 98.1, 89, 18, 149/71, 96% room air GENERAL: Laying in bed, awake, tired EYES: Pupils equal. Conjunctiva normal. HEENT: External appearance of nose and ears normal, oral cavity grossly normal. NECK: JVD not raised; masses not palpable. HEART: First and second heart sounds are normal; no edema. LUNGS: Respiratory rate normal; decreased breath sounds. ABDOMEN: Soft, nontender, liver spleen not palpable, no masses palpable. PSYCH: Answering questions MUSCULOSKELETAL:No Clubbing/cyanosis;muscles-grossly intact NEUROLOGICAL: Cranial nerves grossly intact; no facial asymmetry, power and sensation grossly intact. EXTREMITIES: Left above knee amputation INVESTIGATIONS, reviewed in the clinical context: May 05: White count 13.6 hemoglobin 12.5 potassium 3.9 BUN 39 creatinine 1.96 White count 8.1 hemoglobin 12.7 platelets 140 potassium 3.2 BUN 42 creatinine 2.07 Troponin I 0.041 TSH 2.3 EKG tracing personally reviewed by me-normal sinus rhythm. First-degree AV block. Some ST segment changes in inferolateral leads. Chest x-ray film personally reviewed by me-some elevation right diaphragm. Previous labs: Creatinine 2.08 on 01/28/2022 Assessment and plan: -Acute severe metabolic encephalopathy from hypoglycemia: Better. -Severe hypoglycemia: Improving Patient known to have rather brittle diabetes. Currently hold off insulin. Follow Accu-Cheks closely. Hypoglycemia protocol. -Diabetes mellitus type 2, chronically on insulin causing peripheral neuropathy, diabetic retinopathy Novolin 70/30 changed to 20 units with breakfast and supper. 6 units with lunch. Patient educated -Hypothermia. Likely from severe hypoglycemia.: Better Tanya hugger -Essential hypertension Continue with Coreg, Catapres, hydralazine, Minipress -Hyperlipidemia Continue with Lipitor -Chronic kidney disease stage III from diabetic nephropathy and hypertensive nephrosclerosis Follow renal function -Chronic congestive heart failure from diastolic dysfunction EF 50-55% Follow fluid status -Severe peripheral arterial disease Continue with aspirin -Coronary artery disease not a candidate for surgical intervention Continue with Coreg, Lipitor, Imdur -Decreased hearing in the right ear -Decreased vision in the left eye chronic -Left above-knee amputation Discussed meal timings and amount with the patient. Novolin 70/30 adjusted to 20 units at breakfast and supper and 6 units at lunch. Other medications to continue. Follow Accu-Cheks closely.
[2022-05-05 13:43] LABS: Glucose,Whole Blood 219 mg/dL (75-99)
[2022-05-05] MEDS: SODIUM BICARBONATE TAB 650 MG TAB PO SCH ×3 (14:09→20:33)
[2022-05-05 15:51] LABS: Glucose,Whole Blood 197 mg/dL (70-110)
[2022-05-05 16:53] LABS: Glucose,Whole Blood 152 mg/dL (70-110)
[2022-05-05] MEDS: INSULN ASP PRT/INSULIN ASPART 100 UNIT/ML 10 ML VIAL SQ SCH (16:58)
[2022-05-05 18:56] LABS: Glucose,Whole Blood 152 mg/dL (70-110)
[2022-05-05] MEDS: TAMSULOSIN 0.4 MG CAP.ER.24H PO SCH (20:32)
[2022-05-05] MEDS: ATORVASTATIN 40 MG TAB PO SCH (20:33)
[2022-05-05 20:56] LABS: Glucose,Whole Blood 127 mg/dL (70-110)
[2022-05-05 22:56] LABS: Glucose,Whole Blood 195 mg/dL (70-110)
[2022-05-06 00:55] LABS: Glucose,Whole Blood 196 mg/dL (70-110)
[2022-05-06 03:06] LABS: Glucose,Whole Blood 173 mg/dL (70-110)
[2022-05-06] MEDS: DEXTROSE 10% IN WATER 1,000 ML with SODIUM CHLORIDE 4MEQ/ML VIAL 153.8 MEQ IV SCH ×2 (03:50→17:45)
[2022-05-06 04:53] LABS: Glucose,Whole Blood 137 mg/dL (70-110)
[2022-05-06 06:55] LABS: Glucose,Whole Blood 102 mg/dL (70-110)
[2022-05-06] MEDS: INSULN ASP PRT/INSULIN ASPART 100 UNIT/ML 10 ML VIAL SQ SCH ×3 (07:34→17:47)
[2022-05-06 09:00] LABS: Glucose,Whole Blood 130 mg/dL (70-110)
[2022-05-06] MEDS: SODIUM BICARBONATE TAB 650 MG TAB PO SCH ×3 (09:43→20:05)
[2022-05-06] MEDS: ISOSORBIDE MONONITRATE ER 60 MG TAB.ER.24H PO SCH (09:43)
[2022-05-06] MEDS: APIXABAN 5 MG TAB PO SCH ×2 (09:43→20:05)
[2022-05-06] MEDS: cloNIDine HCL 0.2 MG TAB PO SCH ×3 (09:44→20:05)
[2022-05-06] MEDS: carvediloL 12.5 MG TAB PO SCH ×2 (09:44→20:04)
[2022-05-06] MEDS: hydrALAZINE HCL 50 MG TAB PO SCH ×3 (09:44→20:05)
[2022-05-06] MEDS: PRAZOSIN 1 MG CAP PO SCH ×3 (09:45→20:04)
[2022-05-06 11:09] LABS: Glucose,Whole Blood 155 mg/dL (70-110)
[2022-05-06] MEDS: ASPIRIN 81 MG PO SCH (12:18)
[2022-05-06 12:45] LABS: Glucose,Whole Blood 160 mg/dL (70-110)
[2022-05-06 14:50] LABS: Glucose,Whole Blood 223 mg/dL (70-110)
--- NOTE | 2022-05-06 18:09 | P.PN ---
Progress Note - Text Progress Note Date: 05/06/22 Chief Complaint: Low sugar History of presenting complaint: This is a pleasant 76-year-old patient who follows with Dr. Jack De Jesus. Chronic stable medical conditions include diabetes mellitus type 2 on insulin, causing peripheral neuropathy and diabetic retinopathy, hypertension, hyperlipidemia, chronic kidney disease stage III, CHF from diastolic dysfunction, severe peripheral arterial disease, coronary artery disease not a candidate for surgical intervention, essential hypertension. Poor vision in left eye. As per the at the bedside to give the history: Patient woke up this morning and was normal self. He ate milk and cereal for breakfast. Took his morning insulin sent on the couch. left for work. When came back she found that the patient and notable from the spot of the couch. He was unresponsive. In the past he's episodes called the patient to be hypoglycemic. Has had his insulin adjusted multiple times. Patient took his dose of insulin in front of the . No fever no chills. EMS found the glucose to be 33. And patient received an amp of dextrose. Patient rather lethargic. Just about arousable. Put on D5W drip. May 05: Patient more awake today. Tired. Did eat some breakfast. Patient states that he normally has a small breakfast about 7:00 AM of cereal and milk. Maybe and eggs. Normally has a sandwich for lunch around known. Normally has a hour hold some dinner around 6 PM. Discussed with him to increase his breakfast amount and have shown 8:30 to 9:00. May 06: Patient had about 100 breakfast and about 50% lunch. I met with patient's this afternoon. Reemphasize up with the patient having a heavier breakfast and a light lunch. And spacing of the breakfast and supper and" with the schedule at home. Accu-Cheks have been more reasonable. Will watch for another 24 hours. Active Medications Acetaminophen (Acetaminophen Tab 325 Mg Tab) 650 mg PO Q6HR PRN PRN Reason: Mild Pain or Fever > 100.5 Last Admin: 05/06/22 00:22 Dose: 650 mg Apixaban (Apixaban 5 Mg Tab) 5 mg PO BID@0800,2000 [facility]; Protocol Last Admin: 05/06/22 09:43 Dose: 5 mg Aspirin (Aspirin 81 Mg) 81 mg PO DAILY@1200 [facility] Last Admin: 05/06/22 12:18 Dose: 81 mg Atorvastatin Calcium (Atorvastatin 40 Mg Tab) 40 mg PO HS@1999 [facility] Last Admin: 05/05/22 20:33 Dose: 40 mg Calcium Carbonate/Glycine (Calcium Carbonate 500 Mg Chewable) 1,000 mg PO Q4HR PRN PRN Reason: Dyspepsia Carvedilol (Carvedilol 12.5 Mg Tab) 25 mg PO BID@799,1999 [facility] Last Admin: 05/06/22 09:44 Dose: 25 mg Clonidine (Clonidine Hcl 0.2 Mg Tab) 0.2 mg PO TID@799, [facility] Last Admin: 05/06/22 15:50 Dose: 0.2 mg Hydralazine HCl (Hydralazine Hcl 50 Mg Tab) 100 mg PO TID@799, [facility] Last Admin: 05/06/22 15:50 Dose: 100 mg Sodium Chloride 153.8 meq/ (Dextrose/Water) 1,038.45 mls @ 75 mls/hr IV .[id number] [facility] Last Admin: 05/06/22 17:45 Dose: Not Given Insulin Aspart (Insuln Asp Prt/Insulin Aspart 100 Unit/Ml 10 Ml Vial) 20 unit SQ W/SUPPER [facility] Last Admin: 05/06/22 17:47 Dose: 20 unit Insulin Aspart (Insuln Asp Prt/Insulin Aspart 100 Unit/Ml 10 Ml Vial) 20 unit SQ W/BRKFST [facility] Last Admin: 05/06/22 07:34 Dose: Not Given Insulin Aspart (Insuln Asp Prt/Insulin Aspart 100 Unit/Ml 10 Ml Vial) 6 unit SQ AC-LUNCH [facility] Last Admin: 05/06/22 15:51 Dose: Not Given Isosorbide Mononitrate (Isosorbide Mononitrate Er 60 Mg Tab.Er.24h) 60 mg PO DAILY@0800 [facility] Last Admin: 05/06/22 09:43 Dose: 60 mg Lactulose (Lactulose 20 Gm/30 Ml Cup) 20 gm PO DAILY PRN PRN Reason: Constipation Lorazepam (Lorazepam 0.5 Mg Tab) 0.5 mg PO Q6HR PRN PRN Reason: Anxiety Naloxone HCl (Naloxone 0.4 Mg/Ml 1 Ml Vial) 0.2 mg IV Q2M PRN PRN Reason: Opioid Reversal Ondansetron HCl (Ondansetron 4 Mg/2 Ml Vial) 4 mg IVP Q8HR PRN PRN Reason: Nausea And Vomiting Last Admin: 05/04/22 20:38 Dose: 4 mg Prazosin HCl (Prazosin 1 Mg Cap) 4 mg PO TID@0800,1500,1999 [facility] Last Admin: 05/06/22 15:50 Dose: 4 mg Sodium Bicarbonate (Sodium Bicarbonate Tab 650 Mg Tab) 650 mg PO TID [facility] Last Admin: 05/06/22 15:50 Dose: 650 mg Tamsulosin HCl (Tamsulosin 0.4 Mg Cap.Er.24h) 0.4 mg PO HS@1999 [facility] Last Admin: 05/05/22 20:32 Dose: 0.4 mg Past medical history: diabetes mellitus type 2 on insulin, causing peripheral neuropathy and diabetic retinopathy, hypertension, hyperlipidemia, chronic kidney disease stage III, CHF from diastolic dysfunction, severe peripheral arterial disease, coronary artery disease not a candidate for surgical intervention, essential hypertension. 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 Family history: DVT Physical examination: VITAL SIGNS: 98.8, 77, 17, 135/59, 97% room air GENERAL: Laying in bed, awake, comfortable EYES: Pupils equal. Conjunctiva normal. HEENT: External appearance of nose and ears normal, oral cavity grossly normal. NECK: JVD not raised; masses not palpable. HEART: First and second heart sounds are normal; no edema. LUNGS: Respiratory rate normal; decreased breath sounds. ABDOMEN: Soft, nontender, liver spleen not palpable, no masses palpable. PSYCH: Answering questions appropriately MUSCULOSKELETAL:No Clubbing/cyanosis;muscles-grossly intact NEUROLOGICAL: Cranial nerves grossly intact; no facial asymmetry, power and sensation grossly intact. EXTREMITIES: Left above knee amputation INVESTIGATIONS, reviewed in the clinical context: May 05: White count 13.6 hemoglobin 12.5 potassium 3.9 BUN 39 creatinine 1.96 White count 8.1 hemoglobin 12.7 platelets 140 potassium 3.2 BUN 42 creatinine 2.07 Troponin I 0.041 TSH 2.3 EKG tracing personally reviewed by me-normal sinus rhythm. First-degree AV block. Some ST segment changes in inferolateral leads. Chest x-ray film personally reviewed by me-some elevation right diaphragm. Previous labs: Creatinine 2.08 on 01/28/2022 Assessment and plan: -Acute severe metabolic encephalopathy from hypoglycemia: Improved -Severe hypoglycemia: Improved Insulin adjusted. -Diabetes mellitus type 2, chronically on insulin causing peripheral neuropathy, diabetic retinopathy Novolin 70/30 changed to 20 units with breakfast and supper. 6 units with lunch. Patient and educated at length today. -Hypothermia. Likely from severe hypoglycemia.: Better Tanya hugger -Essential hypertension Continue with Coreg, Catapres, hydralazine, Minipress -Hyperlipidemia Continue with Lipitor -Chronic kidney disease stage III from diabetic nephropathy and hypertensive nephrosclerosis Follow renal function -Chronic congestive heart failure from diastolic dysfunction EF 50-55% Follow fluid status -Severe peripheral arterial disease Continue with aspirin -Coronary artery disease not a candidate for surgical intervention Continue with Coreg, Lipitor, Imdur -Decreased hearing in the right ear -Decreased vision in the left eye chronic -Left above-knee amputation Discussed at length with the meal timings quantity of food and the relationship insulin and the duration of his neck daily. Questions were answered. We'll follow Accu-Cheks to tomorrow and then discharge home. Total time spent today about 45 minutes with over half an hour discussion.
[2022-05-06 18:16] LABS: Glucose,Whole Blood 250 mg/dL (70-110)
[2022-05-06] MEDS: ATORVASTATIN 40 MG TAB PO SCH (20:05)
[2022-05-06] MEDS: TAMSULOSIN 0.4 MG CAP.ER.24H PO SCH (20:05)
[2022-05-06 20:13] LABS: Glucose,Whole Blood 182 mg/dL (70-110)
[2022-05-07 01:54] LABS: Glucose,Whole Blood 126 mg/dL (70-110)
[2022-05-07 05:48] LABS: Glucose,Whole Blood 117 mg/dL (70-110)
[2022-05-07] MEDS: DEXTROSE 10% IN WATER 1,000 ML with SODIUM CHLORIDE 4MEQ/ML VIAL 153.8 MEQ IV SCH (05:52)
[2022-05-07] MEDS: INSULN ASP PRT/INSULIN ASPART 100 UNIT/ML 10 ML VIAL SQ SCH ×2 (08:55→13:12)
[2022-05-07] MEDS: APIXABAN 5 MG TAB PO SCH (09:13)
[2022-05-07] MEDS: hydrALAZINE HCL 50 MG TAB PO SCH ×2 (09:14→16:29)
[2022-05-07] MEDS: cloNIDine HCL 0.2 MG TAB PO SCH ×2 (09:14→16:29)
[2022-05-07] MEDS: carvediloL 12.5 MG TAB PO SCH (09:14)
[2022-05-07] MEDS: PRAZOSIN 1 MG CAP PO SCH ×2 (09:15→16:32)
[2022-05-07] MEDS: ISOSORBIDE MONONITRATE ER 60 MG TAB.ER.24H PO SCH (09:15)
[2022-05-07] MEDS: SODIUM BICARBONATE TAB 650 MG TAB PO SCH (09:15)
[2022-05-07 09:55] LABS: Basophils % (A) 0 %; Eosinophils # (A) 0.4 k/uL (0-0.7); Eosinophils % (A) 5 %; HCT 32.8 % (39.0-53.0); HGB 11.1 gm/dL (13.0-17.5); Lymphocytes # (A) 0.5 k/uL (1.0-4.8); Lymphocytes % (A) 6 %; MCH 30.4 pg (25.0-35.0); MCHC 33.8 g/dL (31.0-37.0); MCV 89.9 fL (80.0-100.0); Mean Platelet Volume 9.2; Monocytes # (A) 0.3 k/uL (0-1.0); Monocytes % (A) 4 %; Neutrophils % (A) 82 %; Platelet Count 136 k/uL (150-450); RBC 3.65 m/uL (4.30-5.90); RDW 15.1 % (11.5-15.5); WBC 7.3 k/uL (3.8-10.6)
[2022-05-07 10:03] LABS: Albumin 3.1 g/dL (3.5-5.0); Calcium 7.9 mg/dL (8.4-10.2); Total Bilirubin 0.7 mg/dL (0.2-1.3); Total Protein 5.5 g/dL (6.3-8.2)
[2022-05-07 10:14] VITALS: RESP 17
[2022-05-07 11:46] LABS: Glucose,Whole Blood 151 mg/dL (70-110)
[2022-05-07] MEDS: ASPIRIN 81 MG PO SCH (13:12)
[2022-05-07 14:55] VITALS: BP 142/68; PULSE 72; TEMP 98.2
--- NOTE | 2022-05-07 16:44 | P.DS ---
Providers Date of admission: 05/04/22 17:39 Expected date of discharge: 05/07/22 Attending physician: Rk Crockett Primary care physician: Jack De Jesus [facility] Course: Chief Complaint: Low sugar History of presenting complaint: This is a pleasant 76-year-old patient who follows with Dr. Jack De Jesus. Chronic stable medical conditions include diabetes mellitus type 2 on insulin, causing peripheral neuropathy and diabetic retinopathy, hypertension, hyperlipidemia, chronic kidney disease stage III, CHF from diastolic dysfunction, severe peripheral arterial disease, coronary artery disease not a candidate for surgical intervention, essential hypertension. Poor vision in left eye. As per the at the bedside to give the history: Patient woke up this morning and was normal self. He ate milk and cereal for breakfast. Took his morning insulin sent on the couch. left for work. When came back she found that the patient and notable from the spot of the couch. He was unresponsive. In the past he's episodes called the patient to be hypoglycemic. Has had his insulin adjusted multiple times. Patient took his dose of insulin in front of the . No fever no chills. EMS found the glucose to be 33. And patient received an amp of dextrose. Patient rather lethargic. Just about arousable. Put on D5W drip. May 05: Patient more awake today. Tired. Did eat some breakfast. Patient states that he normally has a small breakfast about 7:00 AM of cereal and milk. Maybe and eggs. Normally has a sandwich for lunch around known. Normally has a hour hold some dinner around 6 PM. Discussed with him to increase his breakfast amount and have shown 8:30 to 9:00. May 06: Patient had about 100 breakfast and about 50% lunch. I met with patient's this afternoon. Reemphasize up with the patient having a heavier breakfast and a light lunch. And spacing of the breakfast and supper and" with the schedule at home. Accu-Cheks have been more reasonable. Will watch for another 24 hours. May 07: Accu-Cheks noted. Discussed with patient. His insulin. Questions answered. Past medical history: diabetes mellitus type 2 on insulin, causing peripheral neuropathy and diabetic retinopathy, hypertension, hyperlipidemia, chronic kidney disease stage III, CHF from diastolic dysfunction, severe peripheral arterial disease, coronary artery disease not a candidate for surgical intervention, essential hypertension. 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 Family history: DVT Physical examination: VITAL SIGNS: 98.2, 72, 70, 142/68, 98% room air GENERAL: Laying in bed, awake, comfortable EYES: Pupils equal. Conjunctiva normal. HEENT: External appearance of nose and ears normal, oral cavity grossly normal. NECK: JVD not raised; masses not palpable. HEART: First and second heart sounds are normal; no edema. LUNGS: Respiratory rate normal; decreased breath sounds. ABDOMEN: Soft, nontender, liver spleen not palpable, no masses palpable. PSYCH: Answering questions appropriately MUSCULOSKELETAL:No Clubbing/cyanosis;muscles-grossly intact NEUROLOGICAL: Cranial nerves grossly intact; no facial asymmetry, power and sensation grossly intact. EXTREMITIES: Left above knee amputation INVESTIGATIONS, reviewed in the clinical context: May 07: WBC 7.3 hemoglobin 11.1 platelets 196 potassium 4 creatinine 2.5 May 05: White count 13.6 hemoglobin 12.5 potassium 3.9 BUN 39 creatinine 1.96 White count 8.1 hemoglobin 12.7 platelets 140 potassium 3.2 BUN 42 creatinine 2.07 Troponin I 0.041 TSH 2.3 EKG tracing personally reviewed by me-normal sinus rhythm. First-degree AV block. Some ST segment changes in inferolateral leads. Chest x-ray film personally reviewed by me-some elevation right diaphragm. Previous labs: Creatinine 2.08 on 01/28/2022 Assessment and plan: -Acute severe metabolic encephalopathy from hypoglycemia: Improved -Severe hypoglycemia: Improved Insulin adjusted. -Diabetes mellitus type 2, chronically on insulin causing peripheral neuropathy, diabetic retinopathy Novolin 70/30 changed to 26 units with breakfast and supper. Patient and educated about timing and amount of oral intake. -Hypothermia. Likely from severe hypoglycemia.: Improved Tanya hugger -Essential hypertension Continue with Coreg, Catapres, hydralazine, Minipress -Hyperlipidemia Continue with Lipitor -Chronic kidney disease stage III from diabetic nephropathy and hypertensive nephrosclerosis Follow renal function -Chronic congestive heart failure from diastolic dysfunction EF 50-55% Follow fluid status -Severe peripheral arterial disease Continue with aspirin -Coronary artery disease not a candidate for surgical intervention Continue with Coreg, Lipitor, Imdur -Decreased hearing in the right ear -Decreased vision in the left eye chronic -Left above-knee amputation Disposition: Home Plan - Discharge Summary Discharge Rx Participant: Yes New Discharge Prescriptions: New Sodium Bicarbonate Tab 650 mg PO TID #60 tab Continue Sennosides-Docusate Sodium [Senokot-S] 1 tab PO DAILY@0800 hydrALAZINE HCL [Apresoline] 100 mg PO TID@0800,1499,1999 Multivitamin/Iron/Folic Acid [Centrum Complete Multivit Tab] 1 tab PO DAILY@1200 calcitrioL [Calcitriol] 0.5 mcg PO MOWEFR@0800 Aspirin EC [Ecotrin Low Dose] 81 mg PO DAILY@1200 Prazosin HCl 4 mg PO TID@0800,1499,1999 Apixaban [Eliquis] 5 mg PO BID@799,1999 Atorvastatin [Lipitor] 40 mg PO HS@1999 Cholecalciferol (Vitamin D3) [Vitamin D3 (125 MCG = 5,000 IU)] 125 mcg PO DAILY@1200 cloNIDine HCL [Catapres] 0.2 mg PO TID@0800,1499,1999 Isosorbide Mononitrate ER [Imdur] 60 mg PO DAILY@0800 Tamsulosin [Flomax] 0.4 mg PO HS@1999 carvediloL [Coreg] 25 mg PO BID@799,1999 Insulin NPH Hum/Reg Insulin Hm [humuLIN 70/30 Kwikpen] 26 unit SQ W/SUPPER Changed Insulin NPH Hum/Reg Insulin Hm [humuLIN 70/30 Kwikpen] 26 unit SQ W/BRKFST #0 Discharge Medication List Aspirin EC [Ecotrin Low Dose] 81 mg PO DAILY@1200 06/18/19 [History] Multivitamin/Iron/Folic Acid [Centrum Complete Multivit Tab] 1 tab PO DAILY@1200 06/18/19 [History] Sennosides-Docusate Sodium [Senokot-S] 1 tab PO DAILY@0800 06/18/19 [History] calcitrioL [Calcitriol] 0.5 mcg PO MOWEFR@0800 06/18/19 [History] hydrALAZINE HCL [Apresoline] 100 mg PO TID@0800,1500,199906/18/19 [History] Prazosin HCl 4 mg PO TID@0800,1500,199909/05/19 [History] Apixaban [Eliquis] 5 mg PO BID@08,199903/04/21 [History] Atorvastatin [Lipitor] 40 mg PO HS@199901/27/22 [History] Cholecalciferol (Vitamin D3) [Vitamin D3 (125 MCG = 5,000 IU)] 125 mcg PO DAILY@1200 01/27/22 [History] Isosorbide Mononitrate ER [Imdur] 60 mg PO DAILY@0800 01/27/22 [History] Tamsulosin [Flomax] 0.4 mg PO HS@199901/27/22 [History] carvediloL [Coreg] 25 mg PO BID@0800,199901/27/22 [History] cloNIDine HCL [Catapres] 0.2 mg PO TID@0800,1499,199901/27/22 [History] Insulin NPH Hum/Reg Insulin Hm [humuLIN 70/30 Kwikpen] 26 unit SQ W/SUPPER 05/04/22 [History] Insulin NPH Hum/Reg Insulin Hm [humuLIN 70/30 Kwikpen] 26 unit SQ W/BRKFST #0 05/07/22 [Rx] Sodium Bicarbonate Tab 650 mg PO TID #60 tab 05/07/22 [Rx] Follow up Appointment(s)/Referral(s): Jack De Jesus MD [Primary Care Provider] - 1-2 days Patient Instructions/Handouts: Chronic Kidney Disease (DC), Hypoglycemia in a Person with Diabetes (DC), Acute Hypothermia (DC), Encephalopathy (DC) Discharge Disposition: HOME SELF-CARE
== END 2022-05-07 16:38 | disposition home or self-care (01) | DRG 637 ==
LOC: EC 15:21 → 3SCARD 17:39
PROVIDERS: ADMIT Hospitalist; ATTEND Hospitalist
DX: E11.649 Type 2 diabetes mellitus with hypoglycemia without coma (principal); G93.41 Metabolic encephalopathy; I13.0 Hypertensive heart and chronic kidney disease with heart failure and stage 1 through stage 4 chronic kidney disease, or unspecified chronic kidney disease; I50.32 Chronic diastolic (congestive) heart failure; E11.22 Type 2 diabetes mellitus with diabetic chronic kidney disease; E11.51 Type 2 diabetes mellitus with diabetic peripheral angiopathy without gangrene; Z89.612 Acquired absence of left leg above knee; E11.42 Type 2 diabetes mellitus with diabetic polyneuropathy; E11.319 Type 2 diabetes mellitus with unspecified diabetic retinopathy without macular edema; E11.36 Type 2 diabetes mellitus with diabetic cataract; N18.30 Chronic kidney disease, stage 3 unspecified; Z79.4 Long term (current) use of insulin; Z89.422 Acquired absence of other left toe(s); Z89.421 Acquired absence of other right toe(s); E78.5 Hyperlipidemia, unspecified; I25.10 Atherosclerotic heart disease of native coronary artery without angina pectoris; H91.91 Unspecified hearing loss, right ear; H26.9 Unspecified cataract; H54.62 Unqualified visual loss, left eye, normal vision right eye; F41.9 Anxiety disorder, unspecified; K59.00 Constipation, unspecified; I25.2 Old myocardial infarction; R91.8 Other nonspecific abnormal finding of lung field; R68.0 Hypothermia, not associated with low environmental temperature; Z79.01 Long term (current) use of anticoagulants; Z79.82 Long term (current) use of aspirin; Z79.899 Other long term (current) drug therapy; Z86.718 Personal history of other venous thrombosis and embolism; Z86.14 Personal history of Methicillin resistant Staphylococcus aureus infection; Z86.19 Personal history of other infectious and parasitic diseases; Z86.018 Personal history of other benign neoplasm; Z88.1 Allergy status to other antibiotic agents; Z87.19 Personal history of other diseases of the digestive system; Z86.73 Personal history of transient ischemic attack (TIA), and cerebral infarction without residual deficits; Z86.69 Personal history of other diseases of the nervous system and sense organs; Z98.890 Other specified postprocedural states; Z88.8 Allergy status to other drugs, medicaments and biological substances; Z82.49 Family history of ischemic heart disease and other diseases of the circulatory system
CPT/HCPCS: 36415; 70450; 71046; 72125; 80048; 80053; 80306; 80320; 81001; 82140; 82550; 84443; 84484; 85025; 85610; 85730; 93005; 96361; 96374; 96375; 96376; 99285

== ENCOUNTER → 2022-08-27 | Outpatient (CLI) | payer MEDICARE ==
[2022-08-27 11:17] LABS: Appearance,Urine Clear (Clear); Bacteria,Urine Rare /hpf; Bilirubin,Urine Negative (Negative); Blood,Urine Negative (Negative); Color,Urine Colorless; Glucose,Urine (UA) 2+ (Negative); Ketones,Urine Negative (Negative); Leukocyte Esterase,Urine Small (Negative); Nitrite,Urine Negative (Negative); PH, Urine 6.5 (5.0-8.0); Protein,Urine 1+ (Negative); Specific Gravity,Urine 1.008 (1.001-1.035); Squamous Epithelial Cell,Urine <1 /hpf (0-4); Urobilinogen,Urine <2.0 mg/dL (<2.0); WBC,Urine 4 /hpf (0-5)
[2022-08-27 11:28] LABS: Creatinine,Urine Random 29.9 mg/dL; Protein/Creatinine Ratio,Urine 1.906
[2022-08-27 14:26] LABS: Basophils # (A) 0.05 X 10*3/uL (0.00-0.10); Basophils % (A) 0.9 %; Eosinophils # (A) 0.35 X 10*3/uL (0.04-0.35); Eosinophils % (A) 6.1 %; HCT 34.2 % (39.6-50.0); HGB 11.5 g/dL (13.0-17.0); Immature Grans, Automated 0.3 %; Lymphocytes # (A) 0.42 X 10*3/uL (0.90-5.00); Lymphocytes % (A) 7.3 %; MCH 29.3 pg (27.0-32.0); MCHC 33.6 g/dL (32.0-37.0); Mean Platelet Volume 12.6 fL (9.5-12.2); Monocytes # (A) 0.41 X 10*3/uL (0.20-1.00); Monocytes % (A) 7.1 %; NRBC Per 100 WBC 0 /100 WBCS (0.0-0.0); Neutrophils % (A) 78.3 %; Platelet Count 103 X 10*3/uL (140-440); RBC 3.93 X 10*6/uL (4.40-5.60); RDW 13.9 % (11.5-14.5); WBC 5.75 X 10*3/uL (4.50-10.00)
[2022-08-27 15:52] LABS: Albumin 3.8 g/dL (3.8-4.9)
[2022-08-27 16:22] LABS: % Iron Saturation 14.89 (15.00-50.00); Anion Gap 15.6 mmol/L (10.00-18.00); BUN/Creat Ratio 17.69 Ratio (12.00-20.00); Blood Urea Nitrogen 35.2 mg/dL (9.0-27.0); Calcium 9.1 mg/dL (8.7-10.3); Carbon Dioxide 18.9 mmol/L (20.0-27.5); Magnesium 2.1 mg/dL (1.5-2.4); Non-African American GFR(CKD) 31.9 (60.0-200.0); Phosphorus 3.7 mg/dL (2.4-5.1); Potassium 4.1 mmol/L (3.5-5.5); Uric Acid 6.1 mg/dL (3.7-8.7)
== END | disposition home or self-care (01) ==
LOC: LABWHC1 07:59
PROVIDERS: ATTEND Internal Medicine Nephrology
DX: N18.32 Chronic kidney disease, stage 3b (principal)
CPT/HCPCS: 36415; 80048; 81001; 82040; 82306; 82570; 82728; 83540; 83550; 83735; 83970; 84100; 84156; 84550; 85025

== ENCOUNTER 2022-09-02 13:00 | Inpatient (IN) | payer MEDICARE ==
[~2022-09-02 13:00] MED LIST: DEXTROSE 50% SYRINGE 50 ML IVP STA
[2022-09-02 13:33] LABS: Glucose,Whole Blood 136 mg/dL (70-110)
[2022-09-02 13:45] LABS: Basophils % (A) 0 %; Eosinophils # (A) 0.4 k/uL (0-0.7); Eosinophils % (A) 5 %; HGB 12.5 gm/dL (13.0-17.5); Lymphocytes # (A) 0.4 k/uL (1.0-4.8); Lymphocytes % (A) 5 %; MCH 30.9 pg (25.0-35.0); MCHC 35.8 g/dL (31.0-37.0); MCV 86.3 fL (80.0-100.0); Mean Platelet Volume 9.8; Monocytes # (A) 0.4 k/uL (0-1.0); Monocytes % (A) 5 %; Neutrophils # (A) 6.1 k/uL (1.3-7.7); Neutrophils % (A) 83 %; Platelet Count 146 k/uL (150-450); RBC 4.06 m/uL (4.30-5.90); WBC 7.3 k/uL (3.8-10.6)
[2022-09-02 13:57] LABS: Glucose,Whole Blood 56 mg/dL (70-110)
[2022-09-02] MEDS ORDERED: DEXTROSE 50% SYRINGE 50 ML IVP STA ×3 (13:57→17:01)
[2022-09-02 13:58] LABS: Partial Thromboplastin Time 29.1 sec (22.0-30.0); Prothrombin Time 11.1 sec (9.0-12.0)
[2022-09-02 14:00] LABS: ALT 21 U/L (4-49); AST 20 U/L (17-59); African American GFR (CKD) 33 (>60 ml/min/1.73 sqM); Albumin 3.7 g/dL (3.5-5.0); Alcohol <10 mg/dL; Alkaline Phosphatase 87 U/L (38-126); Anion Gap 10 mmol/L; Blood Urea Nitrogen 37 mg/dL (9-20); Calcium 9.6 mg/dL (8.4-10.2); Carbon Dioxide 23 mmol/L (22-30); Chloride 105 mmol/L (98-107); Glucose 70 mg/dL (74-99); Non-African American GFR(CKD) 29 (>60 ml/min/1.73 sqM); Potassium 3.2 mmol/L (3.5-5.1); Sodium 138 mmol/L (137-145); Total Bilirubin 0.6 mg/dL (0.2-1.3); Total Protein 6.1 g/dL (6.3-8.2)
--- NOTE | 2022-09-02 14:01 | CT ---
EXAMINATION TYPE: CT brain cspine wo con CT DLP: 1542.1 mGycm, Automated exposure control for dose reduction was used. DATE OF EXAM: 09/02/2022 1:49 PM COMPARISON: CT brain C-spine 05/04/2022. CLINICAL INDICATION:Male, 77 years old with history of unresponsive; AMS TECHNIQUE: Brain: Multiple axial CT images of the brain were obtained without IV contrast. Cspine: Axial CT images from the skull base to the inferior aspect of T2 we obtained without intraven ous contrast. Coronal and sagittal reformatted images were also reviewed. FINDINGS: Brain: Extra-axial spaces: No abnormal extra-axial fluid collections. Ventricular system: Within normal limits Cerebral parenchyma: No acute intraparenchymal hemorrhage or mass effect. Remote injury to the left and bilateral frontal lobes, and temporal occipital watershed region. Right basal ganglia lacunar inj ury which is new from prior examination on 05/04/2022 but near CSF attenuation consistent with chronic infarct. The ambrocio-white junction is well differentiated. Scattered hypoattenuating areas are seen wi thin the white matter. Cerebral volume loss. Cerebellum: Unremarkable. Mass effect: No evidence of midline shift. Intracranial vasculature: Atherosclerotic calcifications of the intracranial vessels. Soft tissues: Normal. Calvarium/osseous structures: No depressed skull fracture. Paranasal sinuses and mastoid air cells: Mild mucosal thickening of the bilateral maxillary and ethmo id sinuses. Partial opacification of the bilateral mastoid air cells. Visualized orbits: Bilateral aphakia Cervical spine: Fracture: None. Osseous structures: Multilevel degenerative disc disease changes with endplate spurring and disc oste ophyte complex's. Multilevel facet arthropathy. Vertebral alignment: Within normal limits. Spinal canal/Neural Foramina: Disc osteophyte complexes at C4-C5, C5-C6, C6-C7 with at least mild spi nal canal stenosis. Facet joint uncovertebral joint arthropathy scattered throughout the cervical spi ne with varying degrees of neural foraminal stenosis. Neck soft tissues: Prevertebral soft tissues are within normal limits. Other: The airway is patent. The lung apices are clear. Vascular sclerosis. Enlarged heterogenous rig ht thyroid gland. Consider further evaluation with thyroid ultrasound if not already performed. IMPRESSION: 1. No acute intracranial process. 2. Remote injuries along with nonspecific white matter changes likely secondary to chronic microangio chet. 3. No evidence of cervical spine fracture. 4. Mild multilevel degenerative disc disease.
[2022-09-02 14:18] LABS: Appearance,Urine Clear (Clear); Bilirubin,Urine Negative (Negative); Blood,Urine Negative (Negative); Color,Urine Light Yellow; Glucose,Urine (UA) Trace (Negative); Ketones,Urine Negative (Negative); Leukocyte Esterase,Urine Negative (Negative); Nitrite,Urine Negative (Negative); PH, Urine 6.5 (5.0-8.0); Protein,Urine 1+ (Negative); RBC,Urine 1 /hpf (0-5); Specific Gravity,Urine 1.009 (1.001-1.035); Squamous Epithelial Cell,Urine <1 /hpf (0-4); Urobilinogen,Urine <2.0 mg/dL (<2.0); WBC,Urine 1 /hpf (0-5)
--- NOTE | 2022-09-02 14:41 | ED ---
Altered Mental Status HPI - General Chief Complaint: Altered Mental Status Stated Complaint: Unresponsive Time Seen by Provider: 09/02/22 13:10 Source: EMS Mode of arrival: EMS Limitations: altered mental status - History of Present Illness Initial Comments: 77-year-old male with past history of type 1 diabetes presents emergency Department with altered mental status. EMS state that the left the house at 9:30 this morning to go to work. She did call in on the patient however cannot provide a time. States he talked to him over the phone the patient sounded normal. She then arrived home around 2 PM and found the patient still in bed. He was unresponsive. EMS found the patient have a glucose of 35. He was given 1 amp of dextrose however did not return to his baseline. Her is no identifiable trauma. Patient has been seen in the emergency department in the past for similar episode. states that patient has been his normal self. No recent illnesses. No medication changes. Denies overdose of medication. HPI limited due to mental status - Related Data Home Medications Medication Instructions Recorded Confirmed Aspirin EC [Ecotrin Low Dose] 81 mg PO DAILY@0800 06/18/19 09/02/22 Multivitamin/Iron/Folic Acid 1 tab PO DAILY@0800 06/18/19 09/02/22 [Centrum Complete Multivit Tab] Sennosides-Docusate Sodium 1 tab PO DAILY@0806/18/19 09/02/22 [Senokot-S] calcitrioL [Calcitriol] 0.5 mcg PO MOWEFR@0806/18/19 09/02/22 hydrALAZINE HCL [Apresoline] 100 mg PO TID@0800,1500,2200 06/18/19 09/02/22 Prazosin HCl 4 mg PO TID@0800,1500,2200 09/05/19 09/02/22 Apixaban [Eliquis] 5 mg PO BID@08,199903/04/21 09/02/22 Atorvastatin [Lipitor] 40 mg PO HS@219901/27/22 09/02/22 Cholecalciferol (Vitamin D3) 125 mcg PO DAILY@0800 01/27/22 09/02/22 [Vitamin D3 (125 MCG = 5,000 IU)] Isosorbide Mononitrate ER [Imdur] 60 mg PO DAILY@0800 01/27/22 09/02/22 Tamsulosin [Flomax] 0.4 mg PO HS@2200 01/27/22 09/02/22 carvediloL [Coreg] 25 mg PO BID@0800,2000 01/27/22 09/02/22 cloNIDine HCL [Catapres] 0.2 mg PO TID@0800,1500,2200 01/27/22 09/02/22 Previous Rx's Medication Instructions Recorded Insulin NPH Hum/Reg Insulin Hm 16 unit SQ W/SUPPER #0 09/05/22 [humuLIN 70/30 Kwikpen] Insulin NPH Hum/Reg Insulin Hm 20 unit SQ W/BRKFST #0 09/05/22 [humuLIN 70/30 Kwikpen] Allergies Allergy/AdvReac Type Severity Reaction Status Date / Time amlodipine Allergy Anaphylaxis Verified 09/02/22 13:28 lisinopril Allergy tongue Verified 09/02/22 13:28 swelling vancomycin Allergy seizure Verified 09/02/22 13:28 like activity Review of Systems ROS Statement: Those systems with pertinent positive or pertinent negative responses have been documented in the HPI. ROS Other: All systems not noted in ROS Statement are negative. Past Medical History Past Medical History: Heart Failure, Diabetes Mellitus, Deep Vein Thrombosis (DVT), Hyperlipidemia, Hypertension, Syncope Additional Past Medical History / Comment(s): pt wants flu vaccine while here. other hx:per pt's "xray noted lung nodules". 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, L foot gr toe, 3rd &2nd toe amputated; Rfoot 3rd toe amputated, Bypass in Bilat legs, eulogio knee sx(cartilage), lt arm picc line.since removed, x3 sx total facial plastic sx and grafting done area under lt eye d/t injury, Ackerman placement.-rt upper chest Past Anesthesia/Blood Transfusion Reactions: Postoperative Nausea & Vomiting (PONV) Additional Past Anesthesia/Blood Transfusion Reaction / Comment(s): never recieved blood Past Psychological History: No Psychological Hx Reported Smoking Status: Never smoker Past Alcohol Use History: None Reported Past Drug Use History: None Reported - Past Family History Father Family Medical History: Deep Vein Thrombosis (DVT) Additional Family Medical History / Comment(s): had valve sx- a week later from complications Mother Family Medical History: Congestive Heart Failure (CHF) Additional Family Medical History / Comment(s): phlebitis General Exam Limitations: altered mental status General appearance: in no apparent distress, obtunded Head exam: Present: atraumatic, normocephalic, normal inspection Eye exam: Present: normal appearance, PERRL, EOMI. Absent: scleral icterus, conjunctival injection, periorbital swelling ENT exam: Present: normal exam, mucous membranes moist Neck exam: Present: normal inspection. Absent: tenderness, meningismus, lymphadenopathy Respiratory exam: Present: normal lung sounds bilaterally. Absent: respiratory distress, wheezes, rales, rhonchi, stridor Cardiovascular Exam: Present: regular rate, normal rhythm, normal heart sounds. Absent: systolic murmur, diastolic murmur, rubs, gallop, clicks GI/Abdominal exam: Present: soft, normal bowel sounds. Absent: distended, tenderness, guarding, rebound, rigid Extremities exam: Present: normal inspection, full ROM, normal capillary refill. Absent: tenderness, pedal edema, joint swelling, calf tenderness Back exam: Present: normal inspection Neurological exam: Present: altered, CN II-XII intact, other (Minimally opens eyes to painful stimuli. No lateralizing weakness) Skin exam: Present: warm, dry, intact, normal color. Absent: rash Course Vital Signs 09/02/22 09/02/22 09/02/22 13:05 13:14 14:08 Temperature 98.2 F Pulse Rate 70 68 64 Respiratory 16 14 16 Rate Blood Pressure 196/86 160/73 163/72 O2 Sat by Pulse 92 L 94 L 92 L Oximetry 09/02/22 09/02/22 18:00 22:02 Temperature 98.1 F 98.4 F Pulse Rate 78 84 Respiratory 16 18 Rate Blood Pressure 158/68 211/96 O2 Sat by Pulse 94 L 97 Oximetry Medical Decision Making - Medical Decision Making Upon arrival patient placed into a trauma 3. Accu-Chek is obtained and is 77. Patient was given a second amp of dextrose. Patient does have a gag and is respiring on his own. Laboratory studies are conducted and reviewed. Troponin mildly elevated however patient does have chronic renal disease with chronic el evation in his troponin. CT of the brain is performed which showed straights no acute intracranial process. Repetitive checks the patient's glucose demonstrates hypoglycemia. Patient was given a total of 3 amps of D50 and then started on a D5 drip. Called and spoke with Dr. Crockett who will admit the patient - Lab Data Result diagrams: 09/03/22 06:35 09/03/22 06:35 Lab Results 09/02/22 09/02/22 09/02/22 Range/Units 13:25 13:27 13:27 WBC 7.3 (3.8-10.6) k/uL RBC 4.06 L (4.30-5.90) m/uL Hgb 12.5 L (13.0-17.5) gm/dL Hct 35.0 L (39.0-53.0) % MCV 86.3 (80.0-100.0) fL MCH 30.9 (25.0-35.0) pg MCHC 35.8 (31.0-37.0) g/dL RDW 14.0 (11.5-15.5) % Plt Count 146 L (150-450) k/uL MPV 9.8 Neutrophils % 83 % Lymphocytes % 5 % Monocytes % 5 % Eosinophils % 5 % Basophils % 0 % Neutrophils # 6.1 (1.3-7.7) k/uL Lymphocytes # 0.4 L (1.0-4.8) k/uL Monocytes # 0.4 (0-1.0) k/uL Eosinophils # 0.4 (0-0.7) k/uL Basophils # 0.0 (0-0.2) k/uL PT 11.1 (9.0-12.0) sec INR 1.0 (<1.2) APTT 29.1 (22.0-30.0) sec Sodium (137-145) mmol/L Potassium (3.5-5.1) mmol/L Chloride (98-107) mmol/L Carbon Dioxide (22-30) mmol/L Anion Gap mmol/L BUN (9-20) mg/dL Creatinine (0.66-1.25) mg/dL Est GFR (CKD-EPI)AfAm (>60 ml/min/1.73 sqM) Est GFR (CKD-EPI)NonAf (>60 ml/min/1.73 sqM) Glucose (74-99) mg/dL POC Glucose (mg/dL) 136 H (70-110) mg/dL POC Glu Golf Ball Marker ID Chhaya Angulo Calcium (8.4-10.2) mg/dL Total Bilirubin (0.2-1.3) mg/dL AST (17-59) U/L ALT (4-49) U/L Alkaline Phosphatase (38-126) U/L Ammonia (<30) umol/L Troponin I (0.000-0.034) ng/mL Total Protein (6.3-8.2) g/dL Albumin (3.5-5.0) g/dL Urine Color Urine Appearance (Clear) Urine pH (5.0-8.0) Ur Specific Garnett (1.001-1.035) Urine Protein (Negative) Urine Glucose (UA) (Negative) Urine Ketones (Negative) Urine Blood (Negative) Urine Nitrite (Negative) Urine Bilirubin (Negative) Urine Urobilinogen (<2.0) mg/dL Ur Leukocyte Esterase (Negative) Urine RBC (0-5) /hpf Urine WBC (0-5) /hpf Ur Squamous Epith Cells (0-4) /hpf Urine Opiates Screen (NotDetected) Ur Oxycodone Screen (NotDetected) Urine Methadone Screen (NotDetected) Ur Propoxyphene Screen (NotDetected) Ur Barbiturates Screen (NotDetected) U Tricyclic Antidepress (NotDetected) Ur Phencyclidine Scrn (NotDetected) Ur Amphetamines Screen (NotDetected) U Methamphetamines Scrn (NotDetected) U Benzodiazepines Scrn (NotDetected) Urine Cocaine Screen (NotDetected) U Marijuana (THC) Screen (NotDetected) Serum Alcohol mg/dL 09/02/22 09/02/22 09/02/22 Range/Units 13:27 13:27 13:27 WBC (3.8-10.6) k/uL RBC (4.30-5.90) m/uL Hgb (13.0-17.5) gm/dL Hct (39.0-53.0) % MCV (80.0-100.0) fL MCH (25.0-35.0) pg MCHC (31.0-37.0) g/dL RDW (11.5-15.5) % Plt Count (150-450) k/uL MPV Neutrophils % % Lymphocytes % % Monocytes % % Eosinophils % % Basophils % % Neutrophils # (1.3-7.7) k/uL Lymphocytes # (1.0-4.8) k/uL Monocytes # (0-1.0) k/uL Eosinophils # (0-0.7) k/uL Basophils # (0-0.2) k/uL PT (9.0-12.0) sec INR (<1.2) APTT (22.0-30.0) sec Sodium 138 (137-145) mmol/L Potassium 3.2 L (3.5-5.1) mmol/L Chloride 105 (98-107) mmol/L Carbon Dioxide 23 (22-30) mmol/L Anion Gap 10 mmol/L BUN 37 H (9-20) mg/dL Creatinine 2.18 H (0.66-1.25) mg/dL Est GFR (CKD-EPI)AfAm 33 (>60 ml/min/1.73 sqM) Est GFR (CKD-EPI)NonAf 29 (>60 ml/min/1.73 sqM) Glucose 70 L (74-99) mg/dL POC Glucose (mg/dL) (70-110) mg/dL POC Glu Golf Ball Marker ID Calcium 9.6 (8.4-10.2) mg/dL Total Bilirubin 0.6 (0.2-1.3) mg/dL AST 20 (17-59) U/L ALT 21 (4-49) U/L Alkaline Phosphatase 87 (38-126) U/L Ammonia 13 (<30) umol/L Troponin I 0.037 H* (0.000-0.034) ng/mL Total Protein 6.1 L (6.3-8.2) g/dL Albumin 3.7 (3.5-5.0) g/dL Urine Color Urine Appearance (Clear) Urine pH (5.0-8.0) Ur Specific Garnett (1.001-1.035) Urine Protein (Negative) Urine Glucose (UA) (Negative) Urine Ketones (Negative) Urine Blood (Negative) Urine Nitrite (Negative) Urine Bilirubin (Negative) Urine Urobilinogen (<2.0) mg/dL Ur Leukocyte Esterase (Negative) Urine RBC (0-5) /hpf Urine WBC (0-5) /hpf Ur Squamous Epith Cells (0-4) /hpf Urine Opiates Screen (NotDetected) Ur Oxycodone Screen (NotDetected) Urine Methadone Screen (NotDetected) Ur Propoxyphene Screen (NotDetected) Ur Barbiturates Screen (NotDetected) U Tricyclic Antidepress (NotDetected) Ur Phencyclidine Scrn (NotDetected) Ur Amphetamines Screen (NotDetected) U Methamphetamines Scrn (NotDetected) U Benzodiazepines Scrn (NotDetected) Urine Cocaine Screen (NotDetected) U Marijuana (THC) Screen (NotDetected) Serum Alcohol <10 mg/dL 09/02/22 09/02/22 09/02/22 Range/Units 13:56 13:57 14:56 WBC (3.8-10.6) k/uL RBC (4.30-5.90) m/uL Hgb (13.0-17.5) gm/dL Hct (39.0-53.0) % MCV (80.0-100.0) fL MCH (25.0-35.0) pg MCHC (31.0-37.0) g/dL RDW (11.5-15.5) % Plt Count (150-450) k/uL MPV Neutrophils % % Lymphocytes % % Monocytes % % Eosinophils % % Basophils % % Neutrophils # (1.3-7.7) k/uL Lymphocytes # (1.0-4.8) k/uL Monocytes # (0-1.0) k/uL Eosinophils # (0-0.7) k/uL Basophils # (0-0.2) k/uL PT (9.0-12.0) sec INR (<1.2) APTT (22.0-30.0) sec Sodium (137-145) mmol/L Potassium (3.5-5.1) mmol/L Chloride (98-107) mmol/L Carbon Dioxide (22-30) mmol/L Anion Gap mmol/L BUN (9-20) mg/dL Creatinine (0.66-1.25) mg/dL Est GFR (CKD-EPI)AfAm (>60 ml/min/1.73 sqM) Est GFR (CKD-EPI)NonAf (>60 ml/min/1.73 sqM) Glucose (74-99) mg/dL POC Glucose (mg/dL) 56 L 54 L (70-110) mg/dL POC Glu Golf Ball Marker ID Kev, Chhaya Morrill, Chhaya Calcium (8.4-10.2) mg/dL Total Bilirubin (0.2-1.3) mg/dL AST (17-59) U/L ALT (4-49) U/L Alkaline Phosphatase (38-126) U/L Ammonia (<30) umol/L Troponin I (0.000-0.034) ng/mL Total Protein (6.3-8.2) g/dL Albumin (3.5-5.0) g/dL Urine Color Light Yellow Urine Appearance Clear (Clear) Urine pH 6.5 (5.0-8.0) Ur Specific Garnett 1.009 (1.001-1.035) Urine Protein 1+ H (Negative) Urine Glucose (UA) Trace H (Negative) Urine Ketones Negative (Negative) Urine Blood Negative (Negative) Urine Nitrite Negative (Negative) Urine Bilirubin Negative (Negative) Urine Urobilinogen <2.0 (<2.0) mg/dL Ur Leukocyte Esterase Negative (Negative) Urine RBC 1 (0-5) /hpf Urine WBC 1 (0-5) /hpf Ur Squamous Epith Cells <1 (0-4) /hpf Urine Opiates Screen Not Detected (NotDetected) Ur Oxycodone Screen Not Detected (NotDetected) Urine Methadone Screen Not Detected (NotDetected) Ur Propoxyphene Screen Not Detected (NotDetected) Ur Barbiturates Screen Not Detected (NotDetected) U Tricyclic Antidepress Not Detected (NotDetected) Ur Phencyclidine Scrn Not Detected (NotDetected) Ur Amphetamines Screen Not Detected (NotDetected) U Methamphetamines Scrn Not Detected (NotDetected) U Benzodiazepines Scrn Not Detected (NotDetected) Urine Cocaine Screen Not Detected (NotDetected) U Marijuana (THC) Screen Not Detected (NotDetected) Serum Alcohol mg/dL - EKG Data EKG Comments: EKG demonstrates sinus rhythm rate of 65. OR interval 211. QRS 147. QTC of 497. ST depression in 2, 3, aVF as well as V3 through V6. ST segment elevation in aVR Critical Care Time Critical Care Time: Yes Critical Care Time: 35 minutes for hypoglycemia requiring multiple amps of D50 and D5 drip Disposition Clinical Impression: Acute encephalopathy, Hypoglycemia Disposition: ADMITTED IP TO THIS [facility] Condition: Serious Is patient prescribed a controlled substance at d/c from ED?: No Time of Disposition: 15:20 Decision to Admit Reason: Admit from EC Decision Date: 09/02/22 Decision Time: 15:20
--- NOTE | 2022-09-02 14:50 | XR ---
EXAMINATION TYPE: XR chest 2V DATE OF EXAM: 09/02/2022 COMPARISON: NONE HISTORY: Altered mental status. TECHNIQUE: Frontal and lateral views of the chest are obtained. FINDINGS: There is a band of opacity in the right lung base with some elevation of the right diaphra gm which is likely related atelectasis. There is no focal area of consolidation. The cardiac silhouette and pulmonary vessels are within normal limits. IMPRESSION: Elevation of the right diaphragm with a band of opacity in the right lung base which is favored to be atelectasis. Infection cannot be entirely excluded.
[2022-09-02 15:00] LABS: Glucose,Whole Blood 54 mg/dL (70-110)
[2022-09-02] MEDS ORDERED: DEXTROSE 5%-0.9% NACL 1,000 ML IV SCH (15:00)
[2022-09-02 15:17] LABS: Amphetamine Screen,Urine Not Detected (NotDetected); Barbiturate Screen,Urine Not Detected (NotDetected); Benzodiazepines Screen,Urine Not Detected (NotDetected); Cocaine Screen,Urine Not Detected (NotDetected); Methadone Screen, Urine Not Detected (NotDetected); Opiate Screen,Urine Not Detected (NotDetected); Oxycodone Screen, Urine Not Detected (NotDetected); Phencyclidine Screen,Urine Not Detected (NotDetected); Tricyclic Antidepressant,Urine Not Detected (NotDetected); Urn Cannabinoid Scrn Not Detected (NotDetected)
[2022-09-02] MEDS ORDERED: NALOXONE 0.4 MG/ML 1 ML VIAL IV PRN (15:20)
[2022-09-02 17:08] LABS: Glucose,Whole Blood 50 mg/dL (70-110)
[2022-09-02] MEDS ORDERED: LACTULOSE 20 GM/30 ML CUP PO PRN (17:12)
[2022-09-02] MEDS ORDERED: ACETAMINOPHEN TAB 325 MG TAB PO PRN (17:12)
[2022-09-02] MEDS ORDERED: LORazepam 0.5 MG TAB PO PRN (17:12)
[2022-09-02] MEDS ORDERED: ONDANSETRON 4 MG/2 ML VIAL IVP PRN (17:12)
[2022-09-02] MEDS ORDERED: CALCIUM CARBONATE 500 MG CHEWABLE PO PRN (17:12)
[2022-09-02] MEDS ORDERED: GLUCAGON 1 MG/ML VIAL IM STA (17:15)
--- NOTE | 2022-09-02 17:24 | P.HPIM ---
History of Present Illness H&P Date: 09/02/22 Chief Complaint: Altered mental status History of presenting complaint: This is a pleasant 77-year-old patient who follows with Dr. Jack De Jesus. Chronic stable medical conditions include diabetes mellitus type 2 on insulin, causing peripheral neuropathy and diabetic retinopathy, hypertension, hyperlipidemia, chronic kidney disease stage III, CHF from diastolic dysfunctio n, severe peripheral arterial disease, coronary artery disease not a candidate for surgical intervention, essential hypertension. Poor vision in left eye. Patient normally takes insulin 7030, 26 units in the morning and 20 units in the evening. Around 9:00 patient had a boiled egg and toast and coffee and took his insulin. I don't know and the called to check on the patient. Voice was slurred. She comes home at 2 PM and found the patient was unresponsive with a blood glucose of 35. Patient received 2 A of D50 in the ER. At other drip of D5 0.45. at the bedside. Slightly arousable. Prior to this episode no fever or chills. No diarrhea. Patient at the baseline is able to transfer. Does not use his prosthesis. Review of systems cannot obtain patient lethargic Past medical history: diabetes mellitus type 2 on insulin, causing peripheral neuropathy and diabetic retinopathy, hypertension, hyperlipidemia, chronic kidney disease stage III, CHF from diastolic dysfunction, severe peripheral arterial disease, coronary artery disease not a candidate for surgical intervention, essential hypertension. 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 Family history: DVT Physical examination: VITAL SIGNS: 98.2, 70, 16, 1 63 x 72, 92% room air GENERAL: Laying in bed, lethargic comfortable EYES: Pupils equal. Conjunctiva normal. HEENT: External appearance of nose and ears normal, oral cavity grossly normal. NECK: JVD not raised; masses not palpable. HEART: First and second heart sounds are normal; no edema. LUNGS: Respiratory rate normal; decreased breath sounds. ABDOMEN: Soft, nontender, liver spleen not palpable, no masses palpable. PSYCH: Unable to assess patient lethargic MUSCULOSKELETAL:No Clubbing/cyanosis;muscles-grossly intact NEUROLOGICAL: Cranial nerves grossly intact; no facial asymmetry, just about arousable EXTREMITIES: Left above knee amputation INVESTIGATIONS, reviewed in the clinical context: WBC 7.3 hemoglobin 12.5 platelets 146 potassium 3.2 BUN 37 creatinine 2.18 troponin I 0.037 Urine drug screen: Negative EKG tracing personally reviewed by me-normal sinus rhythm, ST segment depression in inferolateral leads. Chest x-ray film personally reviewed by me-, elevated right diaphragm, band of atelectasis in the right base Assessment and plan: -Acute severe metabolic encephalopathy from hypoglycemia. Patient received 2 Amps of D50. In D5 0.45 drip. -Severe hypoglycemia: Glucose supplement -Diabetes mellitus type 2, chronically on insulin causing peripheral neuropathy, diabetic retinopathy Novolin 70/30 on for now -Essential hypertension Continue with Coreg, Catapres, hydralazine, -Hyperlipidemia Lipitor -Chronic kidney disease stage III from diabetic nephropathy and hypertensive nephrosclerosis Follow renal function -Chronic congestive heart failure from diastolic dysfunction EF 50-55% Follow fluid status -Severe peripheral arterial disease Continue with aspirin -Coronary artery disease not a candidate for surgical intervention Coreg, Lipitor, Imdur -Decreased hearing in the right ear -Decreased vision in the left eye chronic -Left above-knee amputation Resume home medications. Hold insulin. Patient received 2 A of D50. Change IV fluids from D5/saline, global climate change analyst to D 10. Care was discussed with the at the bedside. Given the complexity and severity of patient's condition expect the patient to be in the hospital at least for 2 overnights Past Medical History Past Medical History: Heart Failure, Diabetes Mellitus, Deep Vein Thrombosis (DVT), Hyperlipidemia, Hypertension, Syncope Additional Past Medical History / Comment(s): 11-301-8 pt wants flu vaccine while here. other hx:per pt's "xray noted lung nodules". 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, L foot gr toe, 3rd &2nd toe amputated; Rfoot 3rd toe amputated, Bypass in Bilat legs, eulogio knee sx(cartilage), lt arm picc line.since removed, x3 sx total facial plastic sx and grafting done area under lt eye d/t injury, Ackerman placement.-rt upper chest Past Anesthesia/Blood Transfusion Reactions: Postoperative Nausea & Vomiting (PONV) Additional Past Anesthesia/Blood Transfusion Reaction / Comment(s): never recieved blood Past Psychological History: No Psychological Hx Reported Smoking Status: Never smoker Past Alcohol Use History: None Reported Past Drug Use History: None Reported - Past Family History Father Family Medical History: Deep Vein Thrombosis (DVT) Additional Family Medical History / Comment(s): had valve sx- a week later from complications Mother Family Medical History: Congestive Heart Failure (CHF) Additional Family Medical History / Comment(s): phlebitis Medications and Allergies Home Medications Medication Instructions Recorded Confirmed Type Aspirin EC [Ecotrin Low Dose] 81 mg PO DAILY@0800 06/18/19 09/02/22 History Multivitamin/Iron/Folic Acid 1 tab PO DAILY@0800 06/18/19 09/02/22 History [Centrum Complete Multivit Tab] Sennosides-Docusate Sodium 1 tab PO DAILY@0800 06/18/19 09/02/22 History [Senokot-S] calcitrioL [Calcitriol] 0.5 mcg PO MOWEFR@0800 06/18/19 09/02/22 History hydrALAZINE HCL [Apresoline] 100 mg PO TID@0800,1500,2200 06/18/19 09/02/22 History Prazosin HCl 4 mg PO TID@0800,1500,2200 09/05/19 09/02/22 History Apixaban [Eliquis] 5 mg PO BID@0800,2000 03/04/21 09/02/22 History Atorvastatin [Lipitor] 40 mg PO HS@2200 01/27/22 09/02/22 History Cholecalciferol (Vitamin D3) 125 mcg PO DAILY@0800 01/27/22 09/02/22 History [Vitamin D3 (125 MCG = 5,000 IU)] Isosorbide Mononitrate ER [Imdur] 60 mg PO DAILY@0800 01/27/22 09/02/22 History Tamsulosin [Flomax] 0.4 mg PO HS@2200 01/27/22 09/02/22 History carvediloL [Coreg] 25 mg PO BID@0800,2000 01/27/22 09/02/22 History cloNIDine HCL [Catapres] 0.2 mg PO TID@0800,1500,2200 01/27/22 09/02/22 History Insulin NPH Hum/Reg Insulin Hm 20 unit SQ W/SUPPER 05/04/22 09/02/22 History [humuLIN 70/30 Kwikpen] Insulin NPH Hum/Reg Insulin Hm 26 unit SQ W/BRKFST 09/02/22 09/02/22 History [humuLIN 70/30 Kwikpen] Allergies Allergy/AdvReac Type Severity Reaction Status Date / Time amlodipine Allergy Anaphylaxis Verified 09/02/22 13:28 lisinopril Allergy tongue Verified 09/02/22 13:28 swelling vancomycin Allergy seizure Verified 09/02/22 13:28 like activity Physical Exam Vitals: Vital Signs Temp Pulse Resp BP Pulse Ox 09/02/22 14:08 64 16 163/72 92 L 09/02/22 13:14 68 14 160/73 94 L 09/02/22 13:05 98.2 F 70 16 196/86 92 L Intake and Output 09/02/22 09/02/22 09/02/22 06:59 14:59 22:59 Output Total 300 Balance -300 Output: Urine 300 Uretheral (Barrios) 300 Other: Weight 97.522 kg Results CBC & Chem 7: 09/02/22 13:27 09/02/22 13:27 Labs: Abnormal Lab Results - Last 24 Hours (Table) 09/02/22 09/02/22 09/02/22 Range/Units 13:25 13:27 13:27 RBC 4.06 L (4.30-5.90) m/uL Hgb 12.5 L (13.0-17.5) gm/dL Hct 35.0 L (39.0-53.0) % Plt Count 146 L (150-450) k/uL Lymphocytes # 0.4 L (1.0-4.8) k/uL Potassium 3.2 L (3.5-5.1) mmol/L BUN 37 H (9-20) mg/dL Creatinine 2.18 H (0.66-1.25) mg/dL Glucose 70 L (74-99) mg/dL POC Glucose (mg/dL) 136 H (70-110) mg/dL Troponin I (0.000-0.034) ng/mL Total Protein 6.1 L (6.3-8.2) g/dL Urine Protein (Negative) Urine Glucose (UA) (Negative) 09/02/22 09/02/22 09/02/22 Range/Units 13:27 13:56 13:57 RBC (4.30-5.90) m/uL Hgb (13.0-17.5) gm/dL Hct (39.0-53.0) % Plt Count (150-450) k/uL Lymphocytes # (1.0-4.8) k/uL Potassium (3.5-5.1) mmol/L BUN (9-20) mg/dL Creatinine (0.66-1.25) mg/dL Glucose (74-99) mg/dL POC Glucose (mg/dL) 56 L (70-110) mg/dL Troponin I 0.037 H* (0.000-0.034) ng/mL Total Protein (6.3-8.2) g/dL Urine Protein 1+ H (Negative) Urine Glucose (UA) Trace H (Negative) 09/02/22 09/02/22 Range/Units 14:56 17:00 RBC (4.30-5.90) m/uL Hgb (13.0-17.5) gm/dL Hct (39.0-53.0) % Plt Count (150-450) k/uL Lymphocytes # (1.0-4.8) k/uL Potassium (3.5-5.1) mmol/L BUN (9-20) mg/dL Creatinine (0.66-1.25) mg/dL Glucose (74-99) mg/dL POC Glucose (mg/dL) 54 L 50 L (70-110) mg/dL Troponin I (0.000-0.034) ng/mL Total Protein (6.3-8.2) g/dL Urine Protein (Negative) Urine Glucose (UA) (Negative)
[2022-09-02] MEDS ORDERED: DEXTROSE 10% IN WATER 500 ML in EMPTY BAG 1 BAG IV ONE (17:45)
[2022-09-02 18:22] LABS: Glucose,Whole Blood 131 mg/dL (70-110)
[2022-09-02] MEDS: carvediloL 12.5 MG TAB PO SCH (21:15)
[2022-09-02] MEDS: APIXABAN 5 MG TAB PO SCH (21:16)
[2022-09-02 21:25] LABS: Glucose,Whole Blood 85 mg/dL (70-110)
[2022-09-02] MEDS: PRAZOSIN 1 MG CAP PO SCH (22:00)
[2022-09-02] MEDS: DEXTROSE 10% IN WATER 1,000 ML in EMPTY BAG 1 BAG IV SCH (22:00)
[2022-09-02] MEDS: hydrALAZINE HCL 50 MG TAB PO SCH (22:00)
[2022-09-02] MEDS: cloNIDine HCL 0.2 MG TAB PO SCH (22:01)
[2022-09-02] MEDS: TAMSULOSIN 0.4 MG CAP.ER.24H PO SCH (22:01)
[2022-09-02] MEDS: ATORVASTATIN 40 MG TAB PO SCH (22:01)
[2022-09-02 22:28] LABS: Glucose,Whole Blood 130 mg/dL (70-110)
[2022-09-02] MEDS ORDERED: FUROSEMIDE 10 MG/ML 4 ML VIAL ONE (23:25)
[2022-09-03 05:01] LABS: Glucose,Whole Blood 110 mg/dL (70-110)
[2022-09-03 05:01] LABS: Glucose,Whole Blood 102 mg/dL (70-110)
[2022-09-03 05:01] LABS: Glucose,Whole Blood 166 mg/dL (70-110)
[2022-09-03 05:01] LABS: Glucose,Whole Blood 87 mg/dL (70-110)
[2022-09-03 05:01] LABS: Glucose,Whole Blood 106 mg/dL (70-110)
[2022-09-03 05:01] LABS: Glucose,Whole Blood 99 mg/dL (70-110)
[2022-09-03 05:51] LABS: Glucose,Whole Blood 140 mg/dL (70-110)
[2022-09-03 06:56] LABS: Glucose,Whole Blood 146 mg/dL (70-110)
[2022-09-03] MEDS: DEXTROSE 10% IN WATER 1,000 ML in EMPTY BAG 1 BAG IV SCH (07:07)
[2022-09-03] MEDS: hydrALAZINE HCL 50 MG TAB PO SCH ×3 (08:22→21:18)
[2022-09-03] MEDS: APIXABAN 5 MG TAB PO SCH ×2 (08:22→21:18)
[2022-09-03] MEDS: MULTIVITAMINS, THERA 1 EACH TAB PO SCH (08:22)
[2022-09-03] MEDS: carvediloL 12.5 MG TAB PO SCH ×2 (08:22→21:18)
[2022-09-03] MEDS: ASPIRIN 81 MG PO SCH (08:22)
[2022-09-03] MEDS: ISOSORBIDE MONONITRATE ER 60 MG TAB.ER.24H PO SCH (08:22)
[2022-09-03] MEDS: cloNIDine HCL 0.2 MG TAB PO SCH ×3 (08:22→22:08)
[2022-09-03] MEDS: SENNOSIDES-DOCUSATE SODIUM 1 EACH TAB PO SCH (08:22)
[2022-09-03 08:28] LABS: Glucose,Whole Blood 156 mg/dL (70-110)
[2022-09-03 09:32] LABS: Glucose,Whole Blood 164 mg/dL (70-110)
[2022-09-03 10:37] LABS: Basophils # (A) 0.01 X 10*3/uL (0.00-0.10); Basophils % (A) 0.1 %; Eosinophils # (A) 0.08 X 10*3/uL (0.04-0.35); Eosinophils % (A) 0.8 %; HGB 11.6 g/dL (13.0-17.0); Immature Grans, Automated 0.4 %; Lymphocytes # (A) 0.36 X 10*3/uL (0.90-5.00); Lymphocytes % (A) 3.6 %; MCHC 34.1 g/dL (32.0-37.0); Mean Platelet Volume 12.5 fL (9.5-12.2); Monocytes # (A) 0.58 X 10*3/uL (0.20-1.00); Monocytes % (A) 5.8 %; NRBC Per 100 WBC 0 /100 WBCS (0.0-0.0); Neutrophils % (A) 89.3 %; Platelet Count 122 X 10*3/uL (140-440); RDW 13.7 % (11.5-14.5); WBC 9.97 X 10*3/uL (4.50-10.00)
[2022-09-03] MEDS: INSULIN DETEMIR (LEVEMIR) 100 UNIT/ML SYR SQ SCH (10:46)
[2022-09-03 10:55] LABS: African American GFR (CKD) 39.1 (60.0-200.0); Anion Gap 10.1 mmol/L (10.00-18.00); BUN/Creat Ratio 15.68 Ratio (12.00-20.00); Blood Urea Nitrogen 29.8 mg/dL (9.0-27.0); Calcium 8.6 mg/dL (8.7-10.3); Carbon Dioxide 23.9 mmol/L (20.0-27.5); Non-African American GFR(CKD) 33.7 (60.0-200.0); Potassium 3.9 mmol/L (3.5-5.5)
--- NOTE | 2022-09-03 11:08 | P.PN ---
Progress Note - Text Progress Note Date: 09/03/22 Chief Complaint: Altered mental status History of presenting complaint: This is a pleasant 77-year-old patient who follows with Dr. Jcak De Jesus. Chronic stable medical conditions include diabetes mellitus type 2 on insulin, causing peripheral neuropathy and diabetic retinopathy, hypertension, hyperlipidemia, chronic kidney disease stage III, CHF from diastolic dysfunction, severe peripheral arterial disease, coronary artery disease not a candidate for surgical intervention, essential hypertension. Poor vision in left eye. Patient normally takes insulin 7030, 26 units in the morning and 20 units in the evening. Around 9:00 patient had a boiled egg and toast and coffee and took his insulin. I don't know and the called to check on the patient. Voice was slurred. She comes home at 2 PM and found the patient was unresponsive with a blood glucose of 35. Patient received 2 A of D50 in the ER. At other drip of D5 0.45. at the bedside. Slightly arousable. Prior to this episode no fever or chills. No diarrhea. Patient at the baseline is able to transfer. Does not use his prosthesis. 09/03/2022: Patient more awake but tired. Answering simple questions. D10 drip decreased to 30 mL an hour. Initially refused breakfast. What is agreed to take some coffee and putting. Spoke to the nurse to have the come in for the lunch and supper. Start Levemir 20 units daily. Continue to Hold insulin 70/30. Active Medications Acetaminophen (Acetaminophen Tab 325 Mg Tab) 650 mg PO Q6HR PRN PRN Reason: Mild Pain or Fever > 100.5 Apixaban (Apixaban 5 Mg Tab) 5 mg PO BID@0800,2000 [facility]; Protocol Last Admin: 09/03/22 08:22 Dose: 5 mg Aspirin (Aspirin 81 Mg) 81 mg PO DAILY@0800 [facility] Last Admin: 09/03/22 08:22 Dose: 81 mg Atorvastatin Calcium (Atorvastatin 40 Mg Tab) 40 mg PO HS@2200 [facility] Last Admin: 09/02/22 22:01 Dose: 40 mg Calcitriol (Calcitriol 0.25 Mcg Cap) 0.5 mcg PO MOWEFR@0800 [facility] Calcium Carbonate/Glycine (Calcium Carbonate 500 Mg Chewable) 1,000 mg PO Q4HR PRN PRN Reason: Dyspepsia Carvedilol (Carvedilol 12.5 Mg Tab) 25 mg PO BID@0800,2000 [facility] Last Admin: 09/03/22 08:22 Dose: 25 mg Clonidine (Clonidine Hcl 0.2 Mg Tab) 0.2 mg PO TID@0800,1500,2200 [facility] Last Admin: 09/03/22 08:22 Dose: 0.2 mg Hydralazine HCl (Hydralazine Hcl 50 Mg Tab) 100 mg PO TID@0800,1500,2200 [facility] Last Admin: 09/03/22 08:22 Dose: 100 mg Dextrose/Water (Dextrose 10%-Water Iv Soln) 1,000 mls @ 30 mls/hr IV .Q24H [facility] Insulin Detemir (Insulin Detemir (Levemir) 100 Unit/Ml Syr) 12 unit SQ DAILY@0700 [facility] Last Admin: 09/03/22 10:46 Dose: 12 unit Isosorbide Mononitrate (Isosorbide Mononitrate Er 60 Mg Tab.Er.24h) 60 mg PO DAILY@0800 [facility] Last Admin: 09/03/22 08:22 Dose: 60 mg Lactulose (Lactulose 20 Gm/30 Ml Cup) 20 gm PO DAILY PRN PRN Reason: Constipation Lorazepam (Lorazepam 0.5 Mg Tab) 0.5 mg PO Q6HR PRN PRN Reason: Anxiety Multivitamins (Multivitamins, Thera 1 Each Tab) 1 each PO DAILY@0800 [facility] Last Admin: 09/03/22 08:22 Dose: 1 each Naloxone HCl (Naloxone 0.4 Mg/Ml 1 Ml Vial) 0.2 mg IV Q2M PRN PRN Reason: Opioid Reversal Ondansetron HCl (Ondansetron 4 Mg/2 Ml Vial) 4 mg IVP Q8HR PRN PRN Reason: Nausea And Vomiting Prazosin HCl (Prazosin 1 Mg Cap) 4 mg PO TID@0800,1500,2200 [facility] Last Admin: 09/02/22 22:00 Dose: 4 mg Senna/Docusate Sodium (Sennosides-Docusate Sodium 1 Each Tab) 1 each PO DAILY@0800 [facility] Last Admin: 09/03/22 08:22 Dose: 1 each Tamsulosin HCl (Tamsulosin 0.4 Mg Cap.Er.24h) 0.4 mg PO HS@2200 [facility] Last Admin: 09/02/22 22:01 Dose: 0.4 mg Past medical history: diabetes mellitus type 2 on insulin, causing peripheral neuropathy and diabetic retinopathy, hypertension, hyperlipidemia, chronic kidney disease stage III, CHF from diastolic dysfunction, severe peripheral arterial disease, coronary artery disease not a candidate for surgical intervention, essential hypertension. 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 Family history: DVT Physical examination: VITAL SIGNS: 98.8, 64, 18, 1 63 x 78, 95% room air GENERAL: Laying in bed, less lethargic EYES: Pupils equal. Conjunctiva normal. HEENT: External appearance of nose and ears normal, oral cavity grossly normal. NECK: JVD not raised; masses not palpable. HEART: First and second heart sounds are normal; no edema. LUNGS: Respiratory rate normal; decreased breath sounds. ABDOMEN: Soft, nontender, liver spleen not palpable, no masses palpable. PSYCH: Less lethargic, able to answer simple questions EXTREMITIES: Left above knee amputation INVESTIGATIONS, reviewed in the clinical context: September 03: WBC 9 point signed hemoglobin 11.6 potassium 3.9 creatinine 1.9 WBC 7.3 hemoglobin 12.5 platelets 146 potassium 3.2 BUN 37 creatinine 2.18 troponin I 0.037 Urine drug screen: Negative EKG tracing personally reviewed by me-normal sinus rhythm, ST segment depression in inferolateral leads. Chest x-ray film personally reviewed by me-, elevated right diaphragm, band of atelectasis in the right base Assessment and plan: -Acute severe metabolic encephalopathy from hypoglycemia.: Some improvement -Severe hypoglycemia: Glucose supplement. Currently on D10 drip. Decreased to 30 mL an hour. Encourage oral intake. -Diabetes mellitus type 2, chronically on insulin causing peripheral neuropathy, diabetic retinopathy Novolin 70/30 being held. Levemir 12 units today. -Essential hypertension Continue with Coreg, Catapres, hydralazine, -Hyperlipidemia Lipitor -Chronic kidney disease stage III from diabetic nephropathy and hypertensive nephrosclerosis Follow renal function -Chronic congestive heart failure from diastolic dysfunction EF 50-55% Follow fluid status -Severe peripheral arterial disease Continue with aspirin -Coronary artery disease not a candidate for surgical intervention Coreg, Lipitor, Imdur -Decreased hearing in the right ear -Decreased vision in the left eye chronic -Left above-knee amputation Abdomen Levemir 20 units. I did encourage oral intake. Other medications to continue. We'll have the come in to help with encourage feeding.
[2022-09-03] MEDS: PRAZOSIN 1 MG CAP PO SCH ×3 (11:12→22:09)
[2022-09-03] MEDS: DEXTROSE 10% IN WATER 1,000 ML IV SCH (11:12)
[2022-09-03 11:39] LABS: Glucose,Whole Blood 193 mg/dL (70-110)
[2022-09-03 13:56] LABS: Glucose,Whole Blood 218 mg/dL (70-110)
[2022-09-03 16:53] LABS: Glucose,Whole Blood 213 mg/dL (70-110)
[2022-09-03 20:17] LABS: Glucose,Whole Blood 238 mg/dL (70-110)
[2022-09-03] MEDS: TAMSULOSIN 0.4 MG CAP.ER.24H PO SCH (21:18)
[2022-09-03] MEDS: ATORVASTATIN 40 MG TAB PO SCH (21:18)
[2022-09-04 03:26] LABS: Glucose,Whole Blood 212 mg/dL (70-110)
[2022-09-04 07:05] LABS: Glucose,Whole Blood 207 mg/dL (70-110)
[2022-09-04] MEDS: carvediloL 12.5 MG TAB PO SCH ×2 (08:15→21:06)
[2022-09-04] MEDS: APIXABAN 5 MG TAB PO SCH ×2 (08:15→21:06)
[2022-09-04] MEDS: ISOSORBIDE MONONITRATE ER 60 MG TAB.ER.24H PO SCH (08:15)
[2022-09-04] MEDS: cloNIDine HCL 0.2 MG TAB PO SCH ×3 (08:15→21:06)
[2022-09-04] MEDS: SENNOSIDES-DOCUSATE SODIUM 1 EACH TAB PO SCH (08:15)
[2022-09-04] MEDS: hydrALAZINE HCL 50 MG TAB PO SCH ×3 (08:15→21:06)
[2022-09-04] MEDS: MULTIVITAMINS, THERA 1 EACH TAB PO SCH (08:15)
[2022-09-04] MEDS: ASPIRIN 81 MG PO SCH (08:15)
[2022-09-04] MEDS: INSULIN DETEMIR (LEVEMIR) 100 UNIT/ML SYR SQ SCH (08:16)
[2022-09-04] MEDS: PRAZOSIN 1 MG CAP PO SCH ×3 (08:16→21:07)
[2022-09-04] MEDS: DEXTROSE 10% IN WATER 1,000 ML IV SCH (10:43)
[2022-09-04 11:37] LABS: Glucose,Whole Blood 194 mg/dL (70-110)
[2022-09-04 15:22] VITALS: BMI 28.3
--- NOTE | 2022-09-04 16:40 | P.PN ---
Progress Note - Text Progress Note Date: 09/04/22 Chief Complaint: Altered mental status History of presenting complaint: This is a pleasant 77-year-old patient who follows with Dr. Jack De Jesus. Chronic stable medical conditions include diabetes mellitus type 2 on insulin, causing peripheral neuropathy and diabetic retinopathy, hypertension, hyperlipidemia, chronic kidney disease stage III, CHF from diastolic dysfunction, severe peripheral arterial disease, coronary artery disease not a candidate for surgical intervention, essential hypertension. Poor vision in left eye. Patient normally takes insulin 7030, 26 units in the morning and 20 units in the evening. Around 9:00 patient had a boiled egg and toast and coffee and took his insulin. I don't know and the called to check on the patient. Voice was slurred. She comes home at 2 PM and found the patient was unresponsive with a blood glucose of 35. Patient received 2 A of D50 in the ER. At other drip of D5 0.45. at the bedside. Slightly arousable. Prior to this episode no fever or chills. No diarrhea. Patient at the baseline is able to transfer. Does not use his prosthesis. 09/03/2022: Patient more awake but tired. Answering simple questions. D10 drip decreased to 30 mL an hour. Initially refused breakfast. What is agreed to take some coffee and putting. Spoke to the nurse to have the come in for the lunch and supper. Start Levemir 20 units daily. Continue to Hold insulin 70/30. 09/04/2022: Nausea. 8 some. Has a patient's cigarette up in a chair. We'll start NovoLog Mix 70/30 18 units at breakfast and 14 units at supper starting tonight. Stop Levemir. Active Medications Acetaminophen (Acetaminophen Tab 325 Mg Tab) 650 mg PO Q6HR PRN PRN Reason: Mild Pain or Fever > 100.5 Apixaban (Apixaban 5 Mg Tab) 5 mg PO BID@0800,2000 [facility]; Protocol Last Admin: 09/04/22 08:15 Dose: 5 mg Aspirin (Aspirin 81 Mg) 81 mg PO DAILY@0800 [facility] Last Admin: 09/04/22 08:15 Dose: 81 mg Atorvastatin Calcium (Atorvastatin 40 Mg Tab) 40 mg PO HS@2200 [facility] Last Admin: 09/03/22 21:18 Dose: 40 mg Calcitriol (Calcitriol 0.25 Mcg Cap) 0.5 mcg PO MOWEFR@0800 [facility] Last Admin: 09/03/22 11:12 Dose: 0.5 mcg Calcium Carbonate/Glycine (Calcium Carbonate 500 Mg Chewable) 1,000 mg PO Q4HR PRN PRN Reason: Dyspepsia Carvedilol (Carvedilol 12.5 Mg Tab) 25 mg PO BID@0800,2000 [facility] Last Admin: 09/04/22 08:15 Dose: 25 mg Clonidine (Clonidine Hcl 0.2 Mg Tab) 0.2 mg PO TID@0800,1500,2200 [facility] Last Admin: 09/04/22 15:08 Dose: 0.2 mg Hydralazine HCl (Hydralazine Hcl 50 Mg Tab) 100 mg PO TID@0800,1500,2200 [facility] Last Admin: 09/04/22 15:08 Dose: 100 mg Insulin Aspart (Insuln Asp Prt/Insulin Aspart 100 Unit/Ml 10 Ml Vial) 18 unit SQ AC-BRKFST [facility] Insulin Aspart (Insuln Asp Prt/Insulin Aspart 100 Unit/Ml 10 Ml Vial) 14 unit SQ AC-SUPPER [facility] Isosorbide Mononitrate (Isosorbide Mononitrate Er 60 Mg Tab.Er.24h) 60 mg PO DAILY@0800 [facility] Last Admin: 09/04/22 08:15 Dose: 60 mg Lactulose (Lactulose 20 Gm/30 Ml Cup) 20 gm PO DAILY PRN PRN Reason: Constipation Lorazepam (Lorazepam 0.5 Mg Tab) 0.5 mg PO Q6HR PRN PRN Reason: Anxiety Metoclopramide HCl (Metoclopramide 10 Mg Tab) 10 mg PO AC-TID [facility] Multivitamins (Multivitamins, Thera 1 Each Tab) 1 each PO DAILY@0800 [facility] Last Admin: 09/04/22 08:15 Dose: 1 each Naloxone HCl (Naloxone 0.4 Mg/Ml 1 Ml Vial) 0.2 mg IV Q2M PRN PRN Reason: Opioid Reversal Ondansetron HCl (Ondansetron 4 Mg/2 Ml Vial) 4 mg IVP Q8HR PRN PRN Reason: Nausea And Vomiting Last Admin: 09/03/22 20:06 Dose: 4 mg Prazosin HCl (Prazosin 1 Mg Cap) 4 mg PO TID@0800,1500,2200 [facility] Last Admin: 09/04/22 15:08 Dose: 4 mg Senna/Docusate Sodium (Sennosides-Docusate Sodium 1 Each Tab) 1 each PO DAILY@0800 [facility] Last Admin: 09/04/22 08:15 Dose: 1 each Tamsulosin HCl (Tamsulosin 0.4 Mg Cap.Er.24h) 0.4 mg PO HS@2200 [facility] Last Admin: 09/03/22 21:18 Dose: 0.4 mg Past medical history: diabetes mellitus type 2 on insulin, causing peripheral neuropathy and diabetic retinopathy, hypertension, hyperlipidemia, chronic kidney disease stage III, CHF from diastolic dysfunction, severe peripheral arterial disease, coronary artery disease not a candidate for surgical intervention, essential hypertension. 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 Family history: DVT Physical examination: VITAL SIGNS: 98.8, 74, 17, 11 6 x 65, 97% room air GENERAL: Laying in bed, more awake EYES: Pupils equal. Conjunctiva normal. HEENT: External appearance of nose and ears normal, oral cavity grossly normal. NECK: JVD not raised; masses not palpable. HEART: First and second heart sounds are normal; no edema. LUNGS: Respiratory rate normal; decreased breath sounds. ABDOMEN: Soft, nontender, liver spleen not palpable, no masses palpable. PSYCH: Less lethargic, able to answer simple questions EXTREMITIES: Left above knee amputation INVESTIGATIONS, reviewed in the clinical context: September 03: WBC 9 point signed hemoglobin 11.6 potassium 3.9 creatinine 1.9 WBC 7.3 hemoglobin 12.5 platelets 146 potassium 3.2 BUN 37 creatinine 2.18 troponin I 0.037 Urine drug screen: Negative EKG tracing personally reviewed by me-normal sinus rhythm, ST segment depression in inferolateral leads. Chest x-ray film personally reviewed by me-, elevated right diaphragm, band of atelectasis in the right base Assessment and plan: -Acute severe metabolic encephalopathy from hypoglycemia.: Improved -Severe hypoglycemia: Better -Diabetes mellitus type 2, chronically on insulin causing peripheral neuropathy, diabetic retinopathy Novolin 70/30 18 units at breakfast and 14 units with supper. -Essential hypertension Continue with Coreg, Catapres, hydralazine, -Hyperlipidemia Lipitor -Chronic kidney disease stage III from diabetic nephropathy and hypertensive nephrosclerosis Follow renal function -Chronic congestive heart failure from diastolic dysfunction EF 50-55% Follow fluid status -Severe peripheral arterial disease Continue with aspirin -Coronary artery disease not a candidate for surgical intervention Coreg, Lipitor, Imdur -Decreased hearing in the right ear -Decreased vision in the left eye chronic -Left above-knee amputation Add Reglan for nausea. Start Novolin 70/30 at 18 and 14 units. Discussed with patient and . Hopefully discharge tomorrow.
[2022-09-04 16:46] LABS: Glucose,Whole Blood 200 mg/dL (70-110)
[2022-09-04] MEDS: INSULN ASP PRT/INSULIN ASPART 100 UNIT/ML 10 ML VIAL SQ SCH (17:23)
[2022-09-04] MEDS: METOCLOPRAMIDE 10 MG TAB PO SCH (17:24)
[2022-09-04 20:09] LABS: Glucose,Whole Blood 252 mg/dL (70-110)
[2022-09-04] MEDS: ATORVASTATIN 40 MG TAB PO SCH (21:06)
[2022-09-04] MEDS: TAMSULOSIN 0.4 MG CAP.ER.24H PO SCH (21:07)
[2022-09-05 02:03] LABS: Glucose,Whole Blood 133 mg/dL (70-110)
[2022-09-05 07:12] LABS: Glucose,Whole Blood 160 mg/dL (70-110)
[2022-09-05] MEDS ORDERED: INSULN ASP PRT/INSULIN ASPART 100 UNIT/ML 10 ML VIAL SQ SCH ×2 (07:30→17:30)
[2022-09-05] MEDS: carvediloL 12.5 MG TAB PO SCH ×2 (08:49→22:03)
[2022-09-05] MEDS: SENNOSIDES-DOCUSATE SODIUM 1 EACH TAB PO SCH (08:49)
[2022-09-05] MEDS: hydrALAZINE HCL 50 MG TAB PO SCH ×3 (08:49→22:03)
[2022-09-05] MEDS: ASPIRIN 81 MG PO SCH (08:49)
[2022-09-05] MEDS: APIXABAN 5 MG TAB PO SCH ×2 (08:49→22:03)
[2022-09-05] MEDS: ISOSORBIDE MONONITRATE ER 60 MG TAB.ER.24H PO SCH (08:49)
[2022-09-05] MEDS: cloNIDine HCL 0.2 MG TAB PO SCH ×3 (08:49→22:02)
[2022-09-05] MEDS: MULTIVITAMINS, THERA 1 EACH TAB PO SCH (08:49)
[2022-09-05] MEDS: METOCLOPRAMIDE 10 MG TAB PO SCH ×3 (08:50→16:49)
[2022-09-05] MEDS: PRAZOSIN 1 MG CAP PO SCH ×3 (08:50→22:30)
[2022-09-05 11:19] LABS: Glucose,Whole Blood 179 mg/dL (70-110)
[2022-09-05 16:25] LABS: Glucose,Whole Blood 154 mg/dL (70-110)
[2022-09-05] MEDS: INSULN ASP PRT/INSULIN ASPART 100 UNIT/ML 10 ML VIAL SQ SCH (16:47)
--- NOTE | 2022-09-05 17:21 | P.PN ---
Progress Note - Text Progress Note Date: 09/05/22 History of presenting complaint: This is a pleasant 77-year-old patient who follows with Dr. Jack De Jesus. Chronic stable medical conditions include diabetes mellitus type 2 on insulin, causing peripheral neuropathy and diabetic retinopathy, hypertension, hyperlipidemia, chronic kidney disease stage III, CHF from diastolic dysfunction, severe peripheral arterial disease, coronary artery disease not a candidate for surgical intervention, essential hypertension. Poor vision in left eye. Patient normally takes insulin 7030, 26 units in the morning and 20 units in the evening. Around 9:00 patient had a boiled egg and toast and coffee and took his insulin. I don't know and the called to check on the patient. Voice was slurred. She comes home at 2 PM and found the patient was unresponsive with a blood glucose of 35. Patient received 2 A of D50 in the ER. At other drip of D5 0.45. at the bedside. Slightly arousable. Prior to this episode no fever or chills. No diarrhea. Patient at the baseline is able to transfer. Does not use his prosthesis. 09/03/2022: Patient more awake but tired. Answering simple questions. D10 drip decreased to 30 mL an hour. Initially refused breakfast. What is agreed to take some coffee and putting. Spoke to the nurse to have the come in for the lunch and supper. Start Levemir 20 units daily. Continue to Hold insulin 70/30. 09/04/2022: Nausea. 8 some. Has a patient's cigarette up in a chair. We'll start NovoLog Mix 70/30 18 units at breakfast and 14 units at supper starting tonight. Stop Levemir. 09/05/2022: No nausea. Will DC Reglan after today. Increase NovoLog Mix 70/30/30-20 units with breakfast and 16 with supper. has troubled her Trosper today. Requesting embolus. This will happen tomorrow. Discussed the nurse and. Care discussed with the patient and . Accu-Cheks today was 160, 179, 154 Active Medications Acetaminophen (Acetaminophen Tab 325 Mg Tab) 650 mg PO Q6HR PRN PRN Reason: Mild Pain or Fever > 100.5 Apixaban (Apixaban 5 Mg Tab) 5 mg PO BID@0800,2000 ON LICENSE OF [facility]; Protocol Last Admin: 09/05/22 08:49 Dose: 5 mg Aspirin (Aspirin 81 Mg) 81 mg PO DAILY@0800 ON LICENSE OF [facility] Last Admin: 09/05/22 08:49 Dose: 81 mg Atorvastatin Calcium (Atorvastatin 40 Mg Tab) 40 mg PO HS@2200 ON LICENSE OF [facility] Last Admin: 09/04/22 21:06 Dose: 40 mg Calcitriol (Calcitriol 0.25 Mcg Cap) 0.5 mcg PO MOWEFR@0800 ON LICENSE OF [facility] Last Admin: 09/03/22 11:12 Dose: 0.5 mcg Calcium Carbonate/Glycine (Calcium Carbonate 500 Mg Chewable) 1,000 mg PO Q4HR PRN PRN Reason: Dyspepsia Carvedilol (Carvedilol 12.5 Mg Tab) 25 mg PO BID@0800,1999 ON LICENSE OF [facility] Last Admin: 09/05/22 08:49 Dose: 25 mg Clonidine (Clonidine Hcl 0.2 Mg Tab) 0.2 mg PO TID@0800,1500,2200 ON LICENSE OF [facility] Last Admin: 09/05/22 16:43 Dose: 0.2 mg Hydralazine HCl (Hydralazine Hcl 50 Mg Tab) 100 mg PO TID@0800,1500,2200 ON LICENSE OF [facility] Last Admin: 09/05/22 16:43 Dose: 100 mg Insulin Aspart (Insuln Asp Prt/Insulin Aspart 100 Unit/Ml 10 Ml Vial) 16 unit SQ AC-SUPPER ON LICENSE OF [facility] Insulin Aspart (Insuln Asp Prt/Insulin Aspart 100 Unit/Ml 10 Ml Vial) 20 unit SQ AC-BRKFST ON LICENSE OF [facility] Isosorbide Mononitrate (Isosorbide Mononitrate Er 60 Mg Tab.Er.24h) 60 mg PO DAILY@0800 ON LICENSE OF [facility] Last Admin: 09/05/22 08:49 Dose: 60 mg Lactulose (Lactulose 20 Gm/30 Ml Cup) 20 gm PO DAILY PRN PRN Reason: Constipation Lorazepam (Lorazepam 0.5 Mg Tab) 0.5 mg PO Q6HR PRN PRN Reason: Anxiety Metoclopramide HCl (Metoclopramide 10 Mg Tab) 10 mg PO AC-TID ON LICENSE OF [facility] Stop: 09/05/22 23:59 Last Admin: 09/05/22 16:49 Dose: 10 mg Multivitamins (Multivitamins, Thera 1 Each Tab) 1 each PO DAILY@0800 ON LICENSE OF [facility] Last Admin: 09/05/22 08:49 Dose: 1 each Naloxone HCl (Naloxone 0.4 Mg/Ml 1 Ml Vial) 0.2 mg IV Q2M PRN PRN Reason: Opioid Reversal Ondansetron HCl (Ondansetron 4 Mg/2 Ml Vial) 4 mg IVP Q8HR PRN PRN Reason: Nausea And Vomiting Last Admin: 09/03/22 20:06 Dose: 4 mg Prazosin HCl (Prazosin 1 Mg Cap) 4 mg PO TID@0800,1500,2200 ON LICENSE OF [facility] Last Admin: 09/05/22 16:42 Dose: 4 mg Senna/Docusate Sodium (Sennosides-Docusate Sodium 1 Each Tab) 1 each PO DAILY@0800 ON LICENSE OF [facility] Last Admin: 09/05/22 08:49 Dose: 1 each Tamsulosin HCl (Tamsulosin 0.4 Mg Cap.Er.24h) 0.4 mg PO HS@2200 ON LICENSE OF [facility] Last Admin: 09/04/22 21:07 Dose: 0.4 mg Past medical history: diabetes mellitus type 2 on insulin, causing peripheral neuropathy and diabetic retinopathy, hypertension, hyperlipidemia, chronic kidney disease stage III, CHF from diastolic dysfunction, severe peripheral arterial disease, coronary artery disease not a candidate for surgical intervention, essential hypertension. 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 Family history: DVT Physical examination: VITAL SIGNS: 98, 75, 16, 1 10 x 50, 98% room air GENERAL: Laying in bed, comfortable EYES: Pupils equal. Conjunctiva normal. HEENT: External appearance of nose and ears normal, oral cavity grossly normal. NECK: JVD not raised; masses not palpable. HEART: First and second heart sounds are normal; no edema. LUNGS: Respiratory rate normal; decreased breath sounds. ABDOMEN: Soft, nontender, liver spleen not palpable, no masses palpable. PSYCH: Less lethargic, able to answer simple questions EXTREMITIES: Left above knee amputation INVESTIGATIONS, reviewed in the clinical context: September 03: WBC 9 point signed hemoglobin 11.6 potassium 3.9 creatinine 1.9 WBC 7.3 hemoglobin 12.5 platelets 146 potassium 3.2 BUN 37 creatinine 2.18 troponin I 0.037 Urine drug screen: Negative EKG tracing personally reviewed by me-normal sinus rhythm, ST segment depression in inferolateral leads. Chest x-ray film personally reviewed by me-, elevated right diaphragm, band of atelectasis in the right base Assessment and plan: -Acute severe metabolic encephalopathy from hypoglycemia.: Improved -Severe hypoglycemia: Better -Diabetes mellitus type 2, chronically on insulin causing peripheral neuropathy, diabetic retinopathy Novolin 70/30 20 units at breakfast and 16 units with supper. -Essential hypertension Continue with Coreg, Catapres, hydralazine, -Hyperlipidemia Lipitor -Chronic kidney disease stage III from diabetic nephropathy and hypertensive nephrosclerosis Follow renal function -Chronic congestive heart failure from diastolic dysfunction EF 50-55% Follow fluid status -Severe peripheral arterial disease Continue with aspirin -Coronary artery disease not a candidate for surgical intervention Coreg, Lipitor, Imdur -Decreased hearing in the right ear -Decreased vision in the left eye chronic -Left above-knee amputation DC Reglan off for today.. Increase Novolin 70/30 at 20 and 16 units. Patient in ambulance for transport and this will happen tomorrow because otherwise timing at home. Discussed with patient and . Other medications discussed.
[2022-09-05 20:36] LABS: Glucose,Whole Blood 207 mg/dL (70-110)
[2022-09-05] MEDS: TAMSULOSIN 0.4 MG CAP.ER.24H PO SCH (22:02)
[2022-09-05] MEDS: ATORVASTATIN 40 MG TAB PO SCH (22:03)
[2022-09-06 01:53] LABS: Glucose,Whole Blood 114 mg/dL (70-110)
[2022-09-06 02:16] VITALS: TEMP 98.6
[2022-09-06 07:04] LABS: Glucose,Whole Blood 183 mg/dL (70-110)
[2022-09-06] MEDS: APIXABAN 5 MG TAB PO SCH (07:24)
[2022-09-06] MEDS: SENNOSIDES-DOCUSATE SODIUM 1 EACH TAB PO SCH (07:24)
[2022-09-06] MEDS: ISOSORBIDE MONONITRATE ER 60 MG TAB.ER.24H PO SCH (07:24)
[2022-09-06] MEDS: carvediloL 12.5 MG TAB PO SCH (07:24)
[2022-09-06] MEDS: ASPIRIN 81 MG PO SCH (07:24)
[2022-09-06] MEDS: cloNIDine HCL 0.2 MG TAB PO SCH (07:24)
[2022-09-06] MEDS: MULTIVITAMINS, THERA 1 EACH TAB PO SCH (07:24)
[2022-09-06] MEDS: hydrALAZINE HCL 50 MG TAB PO SCH (07:25)
[2022-09-06] MEDS: PRAZOSIN 1 MG CAP PO SCH (07:26)
[2022-09-06] MEDS ORDERED: INSULN ASP PRT/INSULIN ASPART 100 UNIT/ML 10 ML VIAL SQ SCH ×2 (07:30→17:30)
[2022-09-06 07:51] VITALS: BP 152/73; PULSE 75; RESP 14
[2022-09-06 11:35] LABS: Glucose,Whole Blood 247 mg/dL (70-110)
--- NOTE | 2022-09-06 19:47 | P.DS ---
Providers Date of admission: 09/02/22 15:20 Expected date of discharge: 09/06/22 Attending physician: Rk Crockett Primary care physician: Jack De Jesus [facility] Course: History of presenting complaint: This is a pleasant 77-year-old patient who follows with Dr. Jack De Jesus. Chronic stable medical conditions include diabetes mellitus type 2 on insulin, causing peripheral neuropathy and diabetic retinopathy, hypertension, hyperlipidemia, chronic kidney disease stage III, CHF from diastolic dysfunction, severe peripheral arterial disease, coronary artery disease not a candidate for surgical intervention, essential hypertension. Poor vision in left eye. Patient normally takes insulin 7030, 26 units in the morning and 20 units in the evening. Around 9:00 patient had a boiled egg and toast and coffee and took his insulin. I don't know and the called to check on the patient. Voice was slurred. She comes home at 2 PM and found the patient was unresponsive with a blood glucose of 35. Patient received 2 A of D50 in the ER. At other drip of D5 0.45. at the bedside. Slightly arousable. Prior to this episode no fever or chills. No diarrhea. Patient at the baseline is able to transfer. Does not use his prosthesis. 09/03/2022: Patient more awake but tired. Answering simple questions. D10 drip decreased to 30 mL an hour. Initially refused breakfast. What is agreed to take some coffee and putting. Spoke to the nurse to have the come in for the lunch and supper. Start Levemir 20 units daily. Continue to Hold insulin 70/30. 09/04/2022: Nausea. 8 some. Has a patient's cigarette up in a chair. We'll start NovoLog Mix 70/30 18 units at breakfast and 14 units at supper starting tonight. Stop Levemir. 09/05/2022: No nausea. Will DC Reglan after today. Increase NovoLog Mix 70/30/30-20 units with breakfast and 16 with supper. has troubled with transport today. Requesting possible ambulance. This will happen tomorrow. Discussed the nurse and. Care discussed with the patient and . Accu-Cheks today was 160, 179, 154 09/06/2022: Accu-Cheks noted. Will be discharged on the current dose of NovoLog mix. Discussed with the patient and his . Did explain to keep the Accu- Cheks on the higher side if any. Follow-up with Dr. De Jesus. Nurse insurance case manager looking into transport to get the patient home. Discussion and discharge planning more than 35 minutes Past medical history: diabetes mellitus type 2 on insulin, causing peripheral neuropathy and diabetic retinopathy, hypertension, hyperlipidemia, chronic kidney disease stage III, CHF from diastolic dysfunction, severe peripheral arterial disease, coronary artery disease not a candidate for surgical intervention, essential hypertension. 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 Family history: DVT Physical examination: VITAL SIGNS: 98.6, 75, 14, 152.73, 94% room air GENERAL: Laying in bed, comfortable EYES: Pupils equal. Conjunctiva normal. HEENT: External appearance of nose and ears normal, oral cavity grossly normal. NECK: JVD not raised; masses not palpable. HEART: First and second heart sounds are normal; no edema. LUNGS: Respiratory rate normal; decreased breath sounds. ABDOMEN: Soft, nontender, liver spleen not palpable, no masses palpable. PSYCH: Less lethargic, able to answer simple questions EXTREMITIES: Left above knee amputation INVESTIGATIONS, reviewed in the clinical context: September 03: WBC 9 point signed hemoglobin 11.6 potassium 3.9 creatinine 1.9 WBC 7.3 hemoglobin 12.5 platelets 146 potassium 3.2 BUN 37 creatinine 2.18 troponin I 0.037 Urine drug screen: Negative EKG tracing personally reviewed by me-normal sinus rhythm, ST segment depression in inferolateral leads. Chest x-ray film personally reviewed by me-, elevated right diaphragm, band of atelectasis in the right base Assessment and plan: -Acute severe metabolic encephalopathy from hypoglycemia.: Corrected -Severe hypoglycemia: Better -Diabetes mellitus type 2, chronically on insulin causing peripheral neuropathy, diabetic retinopathy Novolin 70/30 20 units at breakfast and 16 units with supper. -Essential hypertension Continue with Coreg, Catapres, hydralazine, -Hyperlipidemia Lipitor -Chronic kidney disease stage III from diabetic nephropathy and hypertensive ne phrosclerosis Follow renal function -Chronic congestive heart failure from diastolic dysfunction EF 50-55% Follow fluid status -Severe peripheral arterial disease Continue with aspirin -Coronary artery disease not a candidate for surgical intervention Coreg, Lipitor, Imdur -Decreased hearing in the right ear -Decreased vision in the left eye chronic -Left above-knee amputation Disposition: Home Plan - Discharge Summary Discharge Rx Participant: No New Discharge Prescriptions: Continue Sennosides-Docusate Sodium [Senokot-S] 1 tab PO DAILY@0800 hydrALAZINE HCL [Apresoline] 100 mg PO TID@0800,1500,2200 Multivitamin/Iron/Folic Acid [Centrum Complete Multivit Tab] 1 tab PO DAILY@0800 calcitrioL [Calcitriol] 0.5 mcg PO MOWEFR@0800 Aspirin EC [Ecotrin Low Dose] 81 mg PO DAILY@0800 Prazosin HCl 4 mg PO TID@0800,1500,2200 Apixaban [Eliquis] 5 mg PO BID@0800,1999 Atorvastatin [Lipitor] 40 mg PO HS@2200 Cholecalciferol (Vitamin D3) [Vitamin D3 (125 MCG = 5,000 IU)] 125 mcg PO DAILY@0800 cloNIDine HCL [Catapres] 0.2 mg PO TID@0800,1500,2200 Isosorbide Mononitrate ER [Imdur] 60 mg PO DAILY@0800 Tamsulosin [Flomax] 0.4 mg PO HS@2200 carvediloL [Coreg] 25 mg PO BID@0800,2000 Changed Insulin NPH Hum/Reg Insulin Hm [humuLIN 70/30 Kwikpen] 20 unit SQ W/BRKFST #0 Insulin NPH Hum/Reg Insulin Hm [humuLIN 70/30 Kwikpen] 16 unit SQ W/SUPPER #0 Discharge Medication List Aspirin EC [Ecotrin Low Dose] 81 mg PO DAILY@0800 06/18/19 [History] Multivitamin/Iron/Folic Acid [Centrum Complete Multivit Tab] 1 tab PO DAILY@0800 06/18/19 [History] Sennosides-Docusate Sodium [Senokot-S] 1 tab PO DAILY@0800 06/18/19 [History] calcitrioL [Calcitriol] 0.5 mcg PO MOWEFR@0800 06/18/19 [History] hydrALAZINE HCL [Apresoline] 100 mg PO TID@0800,1500,2200 06/18/19 [History] Prazosin HCl 4 mg PO TID@0800,1500,2200 09/05/19 [History] Apixaban [Eliquis] 5 mg PO BID@799,199903/04/21 [History] Atorvastatin [Lipitor] 40 mg PO HS@219901/27/22 [History] Cholecalciferol (Vitamin D3) [Vitamin D3 (125 MCG = 5,000 IU)] 125 mcg PO DAILY@79901/27/22 [History] Isosorbide Mononitrate ER [Imdur] 60 mg PO DAILY@79901/27/22 [History] Tamsulosin [Flomax] 0.4 mg PO HS@219901/27/22 [History] carvediloL [Coreg] 25 mg PO BID@799,199901/27/22 [History] cloNIDine HCL [Catapres] 0.2 mg PO TID@0800,1500,219901/27/22 [History] Insulin NPH Hum/Reg Insulin Hm [humuLIN 70/30 Kwikpen] 16 unit SQ W/SUPPER #0 09/05/22 [Rx] Insulin NPH Hum/Reg Insulin Hm [humuLIN 70/30 Kwikpen] 20 unit SQ W/BRKFST #0 09/05/22 [Rx] Follow up Appointment(s)/Referral(s): Jack De Jesus MD [Primary Care Provider] - 1-2 days (PLEASE CALL AND SCHEDULE APPOINTMENT.) [facility] [NON-STAFF] - 1-2 Days Patient Instructions/Handouts: Hypoglycemia in a Person with Diabetes (DC) Discharge Disposition: HOME WITH HOME HEALTH SERVICES
== END 2022-09-06 13:51 | disposition home health service (06) | DRG 637 ==
LOC: EC 13:00 → 4SSUR 15:20
PROVIDERS: ADMIT Hospitalist; ATTEND Hospitalist
DX: E11.649 Type 2 diabetes mellitus with hypoglycemia without coma (principal); G93.41 Metabolic encephalopathy; I13.0 Hypertensive heart and chronic kidney disease with heart failure and stage 1 through stage 4 chronic kidney disease, or unspecified chronic kidney disease; N18.30 Chronic kidney disease, stage 3 unspecified; E11.319 Type 2 diabetes mellitus with unspecified diabetic retinopathy without macular edema; E11.51 Type 2 diabetes mellitus with diabetic peripheral angiopathy without gangrene; I50.32 Chronic diastolic (congestive) heart failure; J98.11 Atelectasis; I25.10 Atherosclerotic heart disease of native coronary artery without angina pectoris; J98.6 Disorders of diaphragm; E78.5 Hyperlipidemia, unspecified; H54.7 Unspecified visual loss; H91.91 Unspecified hearing loss, right ear; E11.22 Type 2 diabetes mellitus with diabetic chronic kidney disease; I25.2 Old myocardial infarction; K59.00 Constipation, unspecified; F41.9 Anxiety disorder, unspecified; Z79.01 Long term (current) use of anticoagulants; Z79.4 Long term (current) use of insulin; Z79.82 Long term (current) use of aspirin; Z79.899 Other long term (current) drug therapy; Z89.429 Acquired absence of other toe(s), unspecified side; Z88.1 Allergy status to other antibiotic agents; Z88.8 Allergy status to other drugs, medicaments and biological substances; Z82.49 Family history of ischemic heart disease and other diseases of the circulatory system; Z87.19 Personal history of other diseases of the digestive system; Z98.41 Cataract extraction status, right eye
CPT/HCPCS: 36415; 70450; 71046; 72125; 80048; 80053; 80306; 80320; 81001; 82140; 84484; 85025; 85610; 85730; 93005; 96361; 96374; 96375; 96376; 99291

== ENCOUNTER → 2022-09-14 | Outpatient (CLI) | payer MEDICARE ==
[2022-09-14 15:07] LABS: ALT 13 U/L (10-49); AST 18 U/L (14-35); African American GFR (CKD) 42.3 (60.0-200.0); Albumin 3.7 g/dL (3.8-4.9); Albumin/Globulin Ratio 1.26 (1.60-3.17); Alkaline Phosphatase 107 U/L (41-126); BUN/Creat Ratio 16.63 Ratio (12.00-20.00); Blood Urea Nitrogen 29.6 mg/dL (9.0-27.0); Calcium 9.4 mg/dL (8.7-10.3); Carbon Dioxide 22.8 mmol/L (20.0-27.5); Chloride 101 mmol/L (96-109); Chol/HDL Ratio 3.22 Ratio; Creatine Kinase 73 U/L (35-257); Globulin 2.9 g/dL (1.6-3.3); Glucose 165 mg/dL (70-110); LDL Cholesterol,Calculated 64.4 mg/dL (0.0-131.0); Non-African American GFR(CKD) 36.5 (60.0-200.0); Potassium 4.2 mmol/L (3.5-5.5); Sodium 135 mmol/L (135-145); Total Protein 6.6 g/dL (6.2-8.2); VLDL Calculation 17.04 mg/dL (5.00-40.00)
== END | disposition home or self-care (01) ==
LOC: LABWHC1 09:22
PROVIDERS: ATTEND Internal Medicine
DX: E11.9 Type 2 diabetes mellitus without complications (principal); E78.5 Hyperlipidemia, unspecified; Z79.4 Long term (current) use of insulin
CPT/HCPCS: 36415; 80053; 80061; 82550; 83036

== ENCOUNTER → 2022-10-13 | Outpatient (CLI) | payer MEDICARE ==
--- NOTE | 2022-10-13 14:17 | US ---
EXAMINATION TYPE: US kidneys/renal and bladder DATE OF EXAM: 10/13/2022 COMPARISON: US 2020 CLINICAL HISTORY: N18.32 CHRONIC KIDNEY DISEASE. CKD. EXAM MEASUREMENTS: Right Kidney: 10.2 x 6.6 x 5.5 cm Left Kidney: 11.6 x 4.9 x 6.5 cm Right Kidney: No hydronephrosis or masses seen Left Kidney: No hydronephrosis or masses seen Bladder: Appears anechoic, limited. Bilateral Jets seen: No, too much movement when color Doppler is on due to breathing/bowel gas to p roperly evaluate for jets. Patient scanned in wheelchair. IMPRESSION: No discrete abnormality appreciated with certainty at this time.
== END | disposition home or self-care (01) ==
LOC: RADUSWWP 12:44
PROVIDERS: ATTEND Internal Medicine Nephrology
DX: N18.32 Chronic kidney disease, stage 3b (principal)
CPT/HCPCS: 76770

== ENCOUNTER 2022-11-08 21:41 | Inpatient (IN) | payer MEDICARE ==
[2022-11-08] MEDS ORDERED: SODIUM CHLORIDE 0.9% 500 ML 500 ML IV STA (22:06)
[2022-11-08] MEDS ORDERED: IPRATROPIUM-ALBUTEROL 3 ML NEB INHALATION STA (22:06)
[2022-11-08] MEDS ORDERED: SODIUM CHLORIDE 0.9% 1,000 ML IV STA (22:06)
[2022-11-08] MEDS ORDERED: KETOROLAC 15 MG/ML 1 ML VIAL IVP STA (22:08)
[2022-11-08] MEDS ORDERED: ACETAMINOPHEN TAB 500 MG TAB PO STA (22:08)
--- NOTE | 2022-11-08 22:27 | XR ---
EXAMINATION TYPE: XR chest 1V portable DATE OF EXAM: 11/08/2022 COMPARISON: Chest x-ray September 02, 2022 HISTORY: Cough and fever. TECHNIQUE: Single AP portable frontal upright view of the chest is obtained. FINDINGS: Low lung volumes redemonstrated. New left lower lung increased opacity. Mild lateral righ t basilar linear scarring and/or atelectasis is less prominent from prior. The cardiac silhouette siz e is stable and within normal limits. Bilateral hilar prominence raises concern for underlying pulmon [place] artery hypertension has similar appearance to prior. The osseous structures are intact. IMPRESSION: New left lower lung acute infiltrate and/or atelectasis.
[2022-11-08 22:34] LABS: Basophils % (A) 0 %; Eosinophils # (A) 0.1 k/uL (0-0.7); Eosinophils % (A) 1 %; HCT 30.7 % (39.0-53.0); HGB 10.4 gm/dL (13.0-17.5); Lymphocytes # (A) 0.2 k/uL (1.0-4.8); Lymphocytes % (A) 3 %; MCH 28.3 pg (25.0-35.0); MCV 83.3 fL (80.0-100.0); Mean Platelet Volume 9.3; Monocytes # (A) 0.3 k/uL (0-1.0); Monocytes % (A) 4 %; Neutrophils # (A) 6.6 k/uL (1.3-7.7); Neutrophils % (A) 90 %; Platelet Count 172 k/uL (150-450); Poikilocytosis Slight; RBC 3.69 m/uL (4.30-5.90); RDW 14.2 % (11.5-15.5); WBC 7.4 k/uL (3.8-10.6)
[2022-11-08 22:45] LABS: Albumin 3.8 g/dL (3.5-5.0); Calcium 9.6 mg/dL (8.4-10.2); Magnesium 2.1 mg/dL (1.6-2.3); Potassium 4.4 mmol/L (3.5-5.1); Total Bilirubin 0.9 mg/dL (0.2-1.3); Total Protein 6.3 g/dL (6.3-8.2)
[2022-11-08 22:46] LABS: Partial Thromboplastin Time 30.9 sec (22.0-30.0); Prothrombin Time 10.8 sec (9.0-12.0)
[2022-11-08 23:22] LABS: Appearance,Urine Clear (Clear); Bilirubin,Urine Negative (Negative); Blood,Urine Negative (Negative); Color,Urine Light Yellow; Glucose,Urine (UA) 3+ (Negative); Ketones,Urine Negative (Negative); Leukocyte Esterase,Urine Negative (Negative); Mucus,Urine Rare /hpf; Nitrite,Urine Negative (Negative); Protein,Urine 2+ (Negative); RBC,Urine 1 /hpf (0-5); Specific Gravity,Urine 1.014 (1.001-1.035); Squamous Epithelial Cell,Urine 1 /hpf (0-4); Urobilinogen,Urine <2.0 mg/dL (<2.0); WBC,Urine 4 /hpf (0-5)
[2022-11-09] MEDS ORDERED: AZITHROMYCIN 500 MG in SODIUM CHLORIDE 0.9% 250 ML IVPB ONE (00:15)
[2022-11-09] MEDS ORDERED: PNEUMONIA PROTOCOL UTILIZED 1 EACH MISC PO PRN (00:52)
[2022-11-09] MEDS ORDERED: ACETAMINOPHEN TAB 325 MG TAB PO PRN (00:52)
--- NOTE | 2022-11-09 00:52 | ED ---
General Adult HPI - General Chief complaint: Shortness of Breath Stated complaint: Weakness, Fall Time Seen by Provider: 11/08/22 21:58 Source: patient, EMS Mode of arrival: EMS Limitations: physical limitation - History of Present Illness Initial comments: This 77-year-old male presents with a complaint of cough, fever, weakness. He has had symptoms over the past couple of days. He has had a slight yellowish production with his cough. He has felt somewhat weak as well. He presents with a fever 102. He denies any known exposures to communicable diseases. He does have a history of diabetes mellitus and has left lower extremity amputation. He denies any sores to his right leg. No other complaints or modifying factors. - Related Data Home Medications Medication Instructions Recorded Confirmed Aspirin EC [Ecotrin Low Dose] 81 mg PO DAILY@0800 06/18/19 09/02/22 Multivitamin/Iron/Folic Acid 1 tab PO DAILY@0800 06/18/19 09/02/22 [Centrum Complete Multivit Tab] Sennosides-Docusate Sodium 1 tab PO DAILY@0800 06/18/19 09/02/22 [Senokot-S] calcitrioL [Calcitriol] 0.5 mcg PO MOWEFR@00 06/18/19 09/02/22 hydrALAZINE HCL [Apresoline] 100 mg PO TID@0800,1500,2200 06/18/19 09/02/22 Prazosin HCl 4 mg PO TID@0800,1500,2200 09/05/19 09/02/22 Apixaban [Eliquis] 5 mg PO BID@799,199903/04/21 09/02/22 Atorvastatin [Lipitor] 40 mg PO HS@219901/27/22 09/02/22 Cholecalciferol (Vitamin D3) 125 mcg PO DAILY@00 01/27/22 09/02/22 [Vitamin D3 (125 MCG = 5,000 IU)] Isosorbide Mononitrate ER [Imdur] 60 mg PO DAILY@0800 01/27/22 09/02/22 Tamsulosin [Flomax] 0.4 mg PO HS@219901/27/22 09/02/22 carvediloL [Coreg] 25 mg PO BID@799,199901/27/22 09/02/22 cloNIDine HCL [Catapres] 0.2 mg PO TID@0800,1500,2200 01/27/22 09/02/22 Previous Rx's Medication Instructions Recorded Insulin NPH Hum/Reg Insulin Hm 16 unit SQ W/SUPPER #0 09/05/22 [humuLIN 70/30 Kwikpen] Insulin NPH Hum/Reg Insulin Hm 20 unit SQ W/BRKFST #0 09/05/22 [humuLIN 70/30 Kwikpen] Allergies Allergy/AdvReac Type Severity Reaction Status Date / Time amlodipine Allergy Anaphylaxis Verified 09/02/22 13:28 lisinopril Allergy tongue Verified 09/02/22 13:28 swelling vancomycin Allergy seizure Verified 09/02/22 13:28 like activity Review of Systems ROS Statement: Those systems with pertinent positive or pertinent negative responses have been documented in the HPI. ROS Other: All systems not noted in ROS Statement are negative. Past Medical History Past Medical History: Heart Failure, Diabetes Mellitus, Deep Vein Thrombosis (DVT), Hyperlipidemia, Hypertension, Syncope Additional Past Medical History / Comment(s): pt wants flu vaccine while here. other hx:per pt's "xray noted lung nodules". 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, L foot gr toe, 3rd &2nd toe amputated; Rfoot 3rd toe amputated, Bypass in Bilat legs, eulogio knee sx(cartilage), lt arm picc line.since removed, x3 sx total facial plastic sx and grafting done area under lt eye d/t injury, Ackerman placement.-rt upper chest Past Anesthesia/Blood Transfusion Reactions: Postoperative Nausea & Vomiting (PONV) Additional Past Anesthesia/Blood Transfusion Reaction / Comment(s): never recieved blood Past Psychological History: No Psychological Hx Reported Smoking Status: Never smoker Past Alcohol Use History: None Reported Past Drug Use History: None Reported - Past Family History Father Family Medical History: Deep Vein Thrombosis (DVT) Additional Family Medical History / Comment(s): had valve sx- a week later from complications Mother Family Medical History: Congestive Heart Failure (CHF) Additional Family Medical History / Comment(s): phlebitis General Exam - General Exam Comments Initial Comments: GENERAL: The patient is well nourished and well hydrated. VITAL SIGNS: Heart rate, blood pressure, respiratory rate reviewed as recorded in nurse's notes. EYES: Pupils are round and reactive. Extraocular movements are intact. No conjunctival / lid redness or swelling. ENT: No external evidence of injury, swelling, or ecchymosis. Airway is patent. Throat is clear. NECK: Nontender. No swelling or evidence of injury. No subcutaneous emphysema. Trachea is midline. No thyroid mass. HEART: Regular rate and rhythm. Good peripheral pulses. LUNGS/CHEST: Breath sounds clear and equal bilaterally. No rales, rhonchi, or wh eezes. No ecchymosis, subcutaneous emphysema, or tenderness. ABDOMEN: Abdomen soft without tenderness. No palpable masses or organomegaly. No peritoneal signs. No abdominal wall swelling or ecchymosis. EXTREMITIES: No extremity tenderness. Normal muscle tone and function. No thoracolumbar tenderness. Left lower extremity amputation. Right fourth toe amputation. NEUROLOGIC: Sensation is grossly intact. Cranial nerve exam reveals face is symmetrical, tongue is midline, speech is clear. SKIN: No abrasions or ecchymosis is noted. No induration or masses noted. PSYCHIATRIC: Alert and oriented. Appropriate behavior and judgment. Limitations: physical limitation Course Vital Signs 11/08/22 11/08/22 11/08/22 22:03 22:31 22:37 Temperature 102.0 F H Pulse Rate 102 H 71 73 Respiratory 16 18 18 Rate Blood Pressure 185/89 O2 Sat by Pulse 96 Oximetry 11/08/22 11/09/22 11/09/22 23:07 00:10 00:42 Temperature 101.0 F H 99.1 F Pulse Rate 96 89 88 Respiratory 16 12 14 Rate Blood Pressure 162/86 162/82 O2 Sat by Pulse 94 L 94 L 95 Oximetry Medical Decision Making - Medical Decision Making The patient is seen and examined. All diagnostics are reviewed. The IV is initiated and he is hydrated. He also is placed on a school lunch monitor and this shows a slight tachycardia. EKG shows sinus tachycardia rate of 105. There is some ST-T wave changes noted in the lateral and septal leads. There is no ST elevation identified. Patient receives some Toradol as well as acetaminophen. Laboratory came back showing evidence of an and anemia, elevation of urine and creatinine, elevated troponin. His viral studies are negative. Chest x-ray shows a right lower lobe pneumonia. It is felt as though his symptomatology likely is related to the pneumonia. Antibiotics are initiated. It is felt as though he would benefit from admission to the hospital due to the significant of his symptomatology, age, and multiple comorbidities. Case is discussed with internal medicine PA and they're agreeable with admission. - Lab Data Result diagrams: 11/08/22 22:13 11/08/22 22:13 Lab Results 11/08/22 11/08/22 11/08/22 Range/Units 22:13 22:13 22:13 WBC 7.4 (3.8-10.6) k/uL RBC 3.69 L (4.30-5.90) m/uL Hgb 10.4 L (13.0-17.5) gm/dL Hct 30.7 L (39.0-53.0) % MCV 83.3 (80.0-100.0) fL MCH 28.3 (25.0-35.0) pg MCHC 34.0 (31.0-37.0) g/dL RDW 14.2 (11.5-15.5) % Plt Count 172 (150-450) k/uL MPV 9.3 Neutrophils % 90 % Lymphocytes % 3 % Monocytes % 4 % Eosinophils % 1 % Basophils % 0 % Neutrophils # 6.6 (1.3-7.7) k/uL Lymphocytes # 0.2 L (1.0-4.8) k/uL Monocytes # 0.3 (0-1.0) k/uL Eosinophils # 0.1 (0-0.7) k/uL Basophils # 0.0 (0-0.2) k/uL Poikilocytosis Slight PT 10.8 (9.0-12.0) sec INR 1.0 (<1.2) APTT 30.9 H (22.0-30.0) sec Sodium 135 L (137-145) mmol/L Potassium 4.4 (3.5-5.1) mmol/L Chloride 104 (98-107) mmol/L Carbon Dioxide 25 (22-30) mmol/L Anion Gap 6 mmol/L BUN 40 H (9-20) mg/dL Creatinine 1.98 H (0.66-1.25) mg/dL Est GFR (CKD-EPI)AfAm 37 (>60 ml/min/1.73 sqM) Est GFR (CKD-EPI)NonAf 32 (>60 ml/min/1.73 sqM) Glucose 235 H (74-99) mg/dL Plasma Lactic Acid [place] (0.7-2.0) mmol/L Calcium 9.6 (8.4-10.2) mg/dL Magnesium 2.1 (1.6-2.3) mg/dL Total Bilirubin 0.9 (0.2-1.3) mg/dL AST 19 (17-59) U/L ALT 23 (4-49) U/L Alkaline Phosphatase 109 (38-126) U/L Troponin I (0.000-0.034) ng/mL Total Protein 6.3 (6.3-8.2) g/dL Albumin 3.8 (3.5-5.0) g/dL Urine Color Urine Appearance (Clear) Urine pH (5.0-8.0) Ur Specific [place] (1.001-1.035) Urine Protein (Negative) Urine Glucose (UA) (Negative) Urine Ketones (Negative) Urine Blood (Negative) Urine Nitrite (Negative) Urine Bilirubin (Negative) Urine Urobilinogen (<2.0) mg/dL Ur Leukocyte Esterase (Negative) Urine RBC (0-5) /hpf Urine WBC (0-5) /hpf Ur Squamous Epith Cells (0-4) /hpf Urine Mucus (None) /hpf Influenza Type A (PCR) (Not Detectd) Influenza Type B (PCR) (Not Detectd) RSV (PCR) (Not Detectd) SARS-CoV-2 (PCR) (Not Detectd) 11/08/22 11/08/22 11/08/22 Range/Units 22:13 22:13 22:13 WBC (3.8-10.6) k/uL RBC (4.30-5.90) m/uL Hgb (13.0-17.5) gm/dL Hct (39.0-53.0) % MCV (80.0-100.0) fL MCH (25.0-35.0) pg MCHC (31.0-37.0) g/dL RDW (11.5-15.5) % Plt Count (150-450) k/uL MPV Neutrophils % % Lymphocytes % % Monocytes % % Eosinophils % % Basophils % % Neutrophils # (1.3-7.7) k/uL Lymphocytes # (1.0-4.8) k/uL Monocytes # (0-1.0) k/uL Eosinophils # (0-0.7) k/uL Basophils # (0-0.2) k/uL Poikilocytosis PT (9.0-12.0) sec INR (<1.2) APTT (22.0-30.0) sec Sodium (137-145) mmol/L Potassium (3.5-5.1) mmol/L Chloride (98-107) mmol/L Carbon Dioxide (22-30) mmol/L Anion Gap mmol/L BUN (9-20) mg/dL Creatinine (0.66-1.25) mg/dL Est GFR (CKD-EPI)AfAm (>60 ml/min/1.73 sqM) Est GFR (CKD-EPI)NonAf (>60 ml/min/1.73 sqM) Glucose (74-99) mg/dL Plasma Lactic Acid [place] 1.4 (0.7-2.0) mmol/L Calcium (8.4-10.2) mg/dL Magnesium (1.6-2.3) mg/dL Total Bilirubin (0.2-1.3) mg/dL AST (17-59) U/L ALT (4-49) U/L Alkaline Phosphatase (38-126) U/L Troponin I 0.062 H* (0.000-0.034) ng/mL Total Protein (6.3-8.2) g/dL Albumin (3.5-5.0) g/dL Urine Color Urine Appearance (Clear) Urine pH (5.0-8.0) Ur Specific [place] (1.001-1.035) Urine Protein (Negative) Urine Glucose (UA) (Negative) Urine Ketones (Negative) Urine Blood (Negative) Urine Nitrite (Negative) Urine Bilirubin (Negative) Urine Urobilinogen (<2.0) mg/dL Ur Leukocyte Esterase (Negative) Urine RBC (0-5) /hpf Urine WBC (0-5) /hpf Ur Squamous Epith Cells (0-4) /hpf Urine Mucus (None) /hpf Influenza Type A (PCR) Not Detected (Not Detectd) Influenza Type B (PCR) Not Detected (Not Detectd) RSV (PCR) Not Detected (Not Detectd) SARS-CoV-2 (PCR) Not Detected (Not Detectd) 11/08/22 Range/Units 23:07 WBC (3.8-10.6) k/uL RBC (4.30-5.90) m/uL Hgb (13.0-17.5) gm/dL Hct (39.0-53.0) % MCV (80.0-100.0) fL MCH (25.0-35.0) pg MCHC (31.0-37.0) g/dL RDW (11.5-15.5) % Plt Count (150-450) k/uL MPV Neutrophils % % Lymphocytes % % Monocytes % % Eosinophils % % Basophils % % Neutrophils # (1.3-7.7) k/uL Lymphocytes # (1.0-4.8) k/uL Monocytes # (0-1.0) k/uL Eosinophils # (0-0.7) k/uL Basophils # (0-0.2) k/uL Poikilocytosis PT (9.0-12.0) sec INR (<1.2) APTT (22.0-30.0) sec Sodium (137-145) mmol/L Potassium (3.5-5.1) mmol/L Chloride (98-107) mmol/L Carbon Dioxide (22-30) mmol/L Anion Gap mmol/L BUN (9-20) mg/dL Creatinine (0.66-1.25) mg/dL Est GFR (CKD-EPI)AfAm (>60 ml/min/1.73 sqM) Est GFR (CKD-EPI)NonAf (>60 ml/min/1.73 sqM) Glucose (74-99) mg/dL Plasma Lactic Acid [place] (0.7-2.0) mmol/L Calcium (8.4-10.2) mg/dL Magnesium (1.6-2.3) mg/dL Total Bilirubin (0.2-1.3) mg/dL AST (17-59) U/L ALT (4-49) U/L Alkaline Phosphatase (38-126) U/L Troponin I (0.000-0.034) ng/mL Total Protein (6.3-8.2) g/dL Albumin (3.5-5.0) g/dL Urine Color Light Yellow Urine Appearance Clear (Clear) Urine pH 6.0 (5.0-8.0) Ur Specific [place] 1.014 (1.001-1.035) Urine Protein 2+ H (Negative) Urine Glucose (UA) 3+ H (Negative) Urine Ketones Negative (Negative) Urine Blood Negative (Negative) Urine Nitrite Negative (Negative) Urine Bilirubin Negative (Negative) Urine Urobilinogen <2.0 (<2.0) mg/dL Ur Leukocyte Esterase Negative (Negative) Urine RBC 1 (0-5) /hpf Urine WBC 4 (0-5) /hpf Ur Squamous Epith Cells 1 (0-4) /hpf Urine Mucus Rare H (None) /hpf Influenza Type A (PCR) (Not Detectd) Influenza Type B (PCR) (Not Detectd) RSV (PCR) (Not Detectd) SARS-CoV-2 (PCR) (Not Detectd) Disposition Clinical Impression: Elevated troponin, Diabetes, Fever, FELI (acute kidney injury), Pneumonia, Anemia Disposition: ADMITTED IP TO THIS HOSP Condition: Fair Is patient prescribed a controlled substance at d/c from ED?: No Time of Disposition: 00:48 Decision Date: 11/09/22 Decision Time: 00:48
[2022-11-09] MEDS ORDERED: ASPIRIN 81 MG PO STA (00:57)
[2022-11-09] MEDS ORDERED: HEPARIN SODIUM 1,000 UN/ML (10ML VL) IV PRN (03:10)
[2022-11-09] MEDS ORDERED: HEPARIN SODIUM 1,000 UN/ML (10ML VL) IV ONE (03:10)
[2022-11-09] MEDS: HEPARIN SOD,PORK IN 0.45% NACL 25,000 UNIT in 0.45% NACL 1 250ML.BAG IV SCH (03:24)
[2022-11-09] MEDS: ASPIRIN 325 MG TAB PO SCH (03:24)
--- NOTE | 2022-11-09 07:52 | P.CRDCN ---
History of Present Illness History of present illness: HISTORY OF PRESENTING ILLNESS Patient is a pleasant 77-year-old male with history of multivessel CAD treated medically, hypertension, chronic kidney disease, hyperlipidemia, diabetes, PAD, left [id number] amputation, bilateral pulmonary embolism on Eliquis, bilateral carotid artery stenosis. He had undergone heart catheterization 2016 which revealed 70-80% mid LAD stenosis, circumflex 70-80% stenosis, 90% stenosis of OM 1 and OM 2 as well as 80% stenosis of the RCA. He is not a good candidate for surgery and therefore had been treated medically secondary to his chronic kidney disease. He has had chronically elevated troponins in the 0.2-0.3 range. Per patient he had a mechanical fall and denies any syncope or lightheadedness. Additionally has been having a cough and fever and generalized weakness. He presented with a fever of 102. Blood pressure mildly elevated in the 140s to 170s systolics. He denies any chest pain, pressure, jaw pain, epigastric pain. He denies any real shortness breath. Chest x-ray shows new left lower lobe infiltrate. Blood work shows hemoglobin 10.4, creatinine 1.98, troponin 0.06, 1.5, 5.0. Lactic acid 1.4. REVIEW OF SYSTEMS At the time of my exam: CONSTITUTIONAL: +fever, no chills. CARDIOVASCULAR: Denies chest pain, +chronic shortness of breath, no orthopnea, PND or palpitations. RESPIRATORY: Denies cough. GASTROINTESTINAL: Denies abdominal pain, diarrhea, constipation, nausea or vomiting. MUSCULOSKELETAL: Denies myalgias. NEUROLOGIC: Denies numbness, tingling or weakness. ENDOCRINE: Denies fatigue, weight change, polydipsia or polyurina. GENITOURINARY: Denies burning, hematuria or urgency with micturation. HEMATOLOGIC: Denies history of anemia or bleeding. PHYSICAL EXAMINATION Vital signs reviewed. CONSTITUTIONAL: No apparent distress, chronically ill appearing HEENT: Head is normocephalic. Pupils are equal, round. Sclerae anicteric. Mucous membranes of the mouth are moist. No JVD. No carotid bruit. CHEST EXAMINATION: Lungs are clear to auscultation. No chest wall tenderness is noted on palpation or with deep breathing. HEART EXAMINATION: Regular rate and rhythm. S1, S2 heard. No murmurs, gallops or rub. ABDOMEN: Soft, nontender. Positive bowel sounds. EXTREMITIES: 2+ peripheral pulses, no lower extremity edema and no calf tenderness. +LLE amputation NEUROLOGIC EXAMINATION: Patient is awake, alert and oriented x3. ASSESSMENT 1. Non-STEMI may be related to type II mechanism from pneumonia versus w orsening of his underlying CAD 2. Multivessel CAD diagnosed by heart catheterization 2016 and treated medically secondary to CPD 3. PAD 4. Chronic kidney disease 5. Left lower lobe pneumonia 6. Hypertension 7. Fall, mechanical per patient PLAN Patient without any significant angina-type symptoms however does have much increased troponin from his normal chronically mild troponin elevations. May be type II mechanism from pneumonia with his known severe CAD. May be type I mechanism however increased risk of any heart catheterization for contrast- induced nephropathy. Restart antianginal medications with carvedilol and Imdur. Monitor for any angina-type symptoms. Continue to trend troponins. EKG showing nonspecific ST depressions. Monitor progress with pneumonia and kidney function. Check 2-D echo. Further recommendations to follow. Past Medical History Past Medical History: Heart Failure, Diabetes Mellitus, Deep Vein Thrombosis (DVT), Hyperlipidemia, Hypertension, Syncope Additional Past Medical History / Comment(s): pt wants flu vaccine while here. other hx:per pt's "xray noted lung nodules". 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, L foot gr toe, 3rd &2nd toe amputated; Rfoot 3rd toe amputated, Bypass in Bilat legs, eulogio knee sx(cartilage), lt arm picc line.since removed, x3 sx total facial plastic sx and grafting done area under lt eye d/t injury, Ackerman placement.-rt upper chest Past Anesthesia/Blood Transfusion Reactions: Postoperative Nausea & Vomiting (PONV) Additional Past Anesthesia/Blood Transfusion Reaction / Comment(s): never recieved blood Past Psychological History: No Psychological Hx Reported Smoking Status: Never smoker Past Alcohol Use History: None Reported Past Drug Use History: None Reported - Past Family History Father Family Medical History: Deep Vein Thrombosis (DVT) Additional Family Medical History / Comment(s): had valve sx- a week later from complications Mother Family Medical History: Congestive Heart Failure (CHF) Additional Family Medical History / Comment(s): phlebitis Medications and Allergies Home Medications Medication Instructions Recorded Confirmed Type Aspirin EC [Ecotrin Low Dose] 81 mg PO DAILY@0800 06/18/19 09/02/22 History Multivitamin/Iron/Folic Acid 1 tab PO DAILY@0800 06/18/19 09/02/22 History [Centrum Complete Multivit Tab] Sennosides-Docusate Sodium 1 tab PO DAILY@0806/18/19 09/02/22 History [Senokot-S] calcitrioL [Calcitriol] 0.5 mcg PO MOWEFR@79906/18/19 09/02/22 History hydrALAZINE HCL [Apresoline] 100 mg PO TID@0800,1500,2200 06/18/19 09/02/22 His tory Prazosin HCl 4 mg PO TID@0800,1500,2200 09/05/19 09/02/22 History Apixaban [Eliquis] 5 mg PO BID@0800,199903/04/21 09/02/22 History Atorvastatin [Lipitor] 40 mg PO HS@219901/27/22 09/02/22 History Cholecalciferol (Vitamin D3) 125 mcg PO DAILY@00 01/27/22 09/02/22 History [Vitamin D3 (125 MCG = 5,000 IU)] Isosorbide Mononitrate ER [Imdur] 60 mg PO DAILY@0800 01/27/22 09/02/22 History Tamsulosin [Flomax] 0.4 mg PO HS@219901/27/22 09/02/22 History carvediloL [Coreg] 25 mg PO BID@0800,2000 01/27/22 09/02/22 History cloNIDine HCL [Catapres] 0.2 mg PO TID@0800,1500,2200 01/27/22 09/02/22 History Insulin NPH Hum/Reg Insulin Hm 16 unit SQ W/SUPPER #0 09/05/22 09/02/22 Rx [humuLIN 70/30 Kwikpen] Insulin NPH Hum/Reg Insulin Hm 20 unit SQ W/BRKFST #0 09/05/22 09/02/22 Rx [humuLIN 70/30 Kwikpen] Allergies Allergy/AdvReac Type Severity Reaction Status Date / Time amlodipine Allergy Anaphylaxis Verified 09/02/22 13:28 lisinopril Allergy tongue Verified 09/02/22 13:28 swelling vancomycin Allergy seizure Verified 09/02/22 13:28 like activity Physical Exam Vitals: Vital Signs Temp Pulse Resp BP Pulse Ox 11/09/22 06:28 82 12 159/93 95 11/09/22 05:40 80 14 94 L 11/09/22 03:35 66 16 157/80 97 11/09/22 00:42 99.1 F 88 14 162/82 95 11/09/22 00:10 89 12 94 L 11/08/22 23:07 101.0 F H 96 16 162/86 94 L 11/08/22 22:37 73 18 11/08/22 22:31 71 18 11/08/22 22:03 102.0 F H 102 H 16 185/89 96 Intake and Output 11/08/22 11/09/22 11/09/22 22:59 06:59 14:59 Other: Weight 90.718 kg Results 11/08/22 22:13 11/08/22 22:13 Cardiac Enzymes 11/08/22 11/08/22 11/09/22 Range/Units 22:13 22:13 02:00 AST 19 (17-59) U/L Troponin I 0.062 H* 1.550 H* (0.000-0.034) ng/mL 11/09/22 Range/Units 05:34 AST (17-59) U/L Troponin I 5.090 H* (0.000-0.034) ng/mL Coagulation 11/08/22 Range/Units 22:13 PT 10.8 (9.0-12.0) sec APTT 30.9 H (22.0-30.0) sec CBC 11/08/22 Range/Units 22:13 WBC 7.4 (3.8-10.6) k/uL RBC 3.69 L (4.30-5.90) m/uL Hgb 10.4 L (13.0-17.5) gm/dL Hct 30.7 L (39.0-53.0) % Plt Count 172 (150-450) k/uL Comprehensive Metabolic Panel 11/08/22 Range/Units 22:13 Sodium 135 L (137-145) mmol/L Potassium 4.4 (3.5-5.1) mmol/L Chloride 104 (98-107) mmol/L Carbon Dioxide 25 (22-30) mmol/L BUN 40 H (9-20) mg/dL Creatinine 1.98 H (0.66-1.25) mg/dL Glucose 235 H (74-99) mg/dL Calcium 9.6 (8.4-10.2) mg/dL AST 19 (17-59) U/L ALT 23 (4-49) U/L Alkaline Phosphatase 109 (38-126) U/L Total Protein 6.3 (6.3-8.2) g/dL Albumin 3.8 (3.5-5.0) g/dL Current Medications Generic Name Dose Route Start Last Admin Trade Name Freq PRN Reason Stop Dose Admin Acetaminophen 650 mg 11/09/22 00:52 Acetaminophen Tab 325 Mg Tab PO Q4HR PRN Fever and/ or Pain Albuterol/Ipratropium 3 ml 11/09/22 00:52 Ipratropium-Albuterol 3 Ml Neb INHALATION RT-Q4H PRN shortness of breath Aspirin 325 mg 11/09/22 09:00 11/09/22 03:24 Aspirin 325 Mg Tab PO 325 mg DAILY GRAHAM Administration Heparin Sodium (Porcine) 0 unit 11/09/22 03:10 Heparin Sodium 1,000 Un/Ml (10ml Vl) IV PER PROTOCOL PRN Low PTT Protocol Sodium Chloride 1,000 mls @ 75 mls/hr 11/08/22 22:06 11/08/22 22:19 Saline 0.9% IV 11/09/22 11:25 75 mls/hr .[id number] STA Administration Ceftriaxone Sodium 1 gm/ 50 mls @ 100 mls/hr 11/09/22 23:00 Sodium Chloride IVPB 11/12/22 23:29 Q24H GRAHMA Protocol Azithromycin 500 mg/ Sodium 250 mls @ 250 mls/hr 11/09/22 21:00 Chloride IVPB 11/12/22 21:01 DAILY@2100 GRAHAM Protocol Heparin Sodium/Sodium Chloride 250 mls @ 9.979 mls/hr 11/09/22 03:15 11/09/22 03:24 25,000 unit/ Sodium Chloride IV 11 units/kg/hr .Q24H GRAHAM 9.979 mls/hr Administration Protocol 11 UNITS/KG/HR Miscellaneous Information 1 each 11/09/22 00:52 Pneumonia Protocol Utilized 1 Each Misc PO ONCE PRN Per Protocol Intake and Output 11/08/22 11/09/22 11/09/22 22:59 06:59 14:59 Other: Weight 90.718 kg 11/08/22 22:13 11/08/22 22:13
[2022-11-09] MEDS: IPRATROPIUM-ALBUTEROL 3 ML NEB INHALATION PRN ×3 (08:09→16:16)
[2022-11-09] MEDS ORDERED: APIXABAN 5 MG TAB PO SCH (09:00)
[2022-11-09] MEDS: SENNOSIDES-DOCUSATE SODIUM 1 EACH TAB PO SCH (10:25)
[2022-11-09] MEDS: hydrALAZINE HCL 50 MG TAB PO SCH ×3 (10:25→22:20)
[2022-11-09] MEDS: CHOLECALCIFEROL 125 MCG (5000 IU) TABLET PO SCH (10:25)
[2022-11-09] MEDS: SODIUM BICARBONATE TAB 650 MG TAB PO SCH ×2 (10:25→21:29)
[2022-11-09] MEDS: ISOSORBIDE MONONITRATE ER 60 MG TAB.ER.24H PO SCH (10:25)
[2022-11-09] MEDS: MULTIVITAMINS, THERA 1 EACH TAB PO SCH (10:25)
[2022-11-09] MEDS: PRAZOSIN 1 MG CAP PO SCH ×3 (10:25→21:29)
[2022-11-09] MEDS: cloNIDine HCL 0.2 MG TAB PO SCH ×3 (10:25→21:29)
[2022-11-09 10:35] LABS: Glucose,Whole Blood 218 mg/dL (70-110)
--- NOTE | 2022-11-09 12:42 | P.HPIM ---
History of Present Illness Patient is a pleasant 77-year-old male with a history of multivessel coronary artery disease came in with the complaints of Vivian's weakness, fever has been going on for a few days. Patient has nonproductive cough patient denied any history of smoking. Patient does have elevated creatinine of 1.98 baseline creatinine is around that. Patient had history Coronary artery disease but in the past medical that he was recommended. P mili is found to have serum troponin of 0.06, 1.5 and 5. Patient was a valid by cardiology and it was believed that the his troponin elevation is secondary to his long-standing coronary artery disease chronic kidney disease and sepsis, echo is being obtained and patient will be monitored on heparin patient usually takes eliquis at home for history of PE in the past. Chest x-ray showing left middle/lower lobe infiltrate although patient only had one view x-ray at this time. She assisted negative for influenza, COVID-19, RSV REVIEW OF SYSTEMS: CONSTITUTIONAL: As mentioned in HPI HEENT: No recent visual problems or hearing problems. Denied any sore throat. CARDIOVASCULAR: No chest pain, orthopnea, PND, no palpitations, no syncope. PULMONARY: No shortness of breath, no cough, no hemoptysis. GASTROINTESTINAL: No diarrhea, no nausea, no vomiting, no abdominal pain. NEUROLOGICAL: No headaches, no weakness, no numbness. HEMATOLOGICAL: Denies any bleeding or petechiae. GENITOURINARY: Denies any burning micturition, frequency, or urgency. MUSCULOSKELETAL/RHEUMATOLOGICAL: Denies any joint pain, swelling, or any muscle pain. ENDOCRINE: Denies any polyuria or polydipsia. The rest of the 14-point review of systems is negative. PHYSICAL EXAMINATION: GENERAL: The patient is alert and oriented x3, not in any acute distress. Well developed, well nourished. HEENT: Pupils are round and equally reacting to light. EOMI. No scleral icterus. No conjunctival pallor. Normocephalic, atraumatic. No pharyngeal erythema. No thyromegaly. CARDIOVASCULAR: S1 and S2 present. No murmurs, rubs, or gallops. PULMONARY: Chest is clear to auscultation, no wheezing or crackles. ABDOMEN: Soft, nontender, nondistended, normoactive bowel sounds. No palpable organomegaly. MUSCULOSKELETAL: No joint swelling or deformity. EXTREMITIES: No cyanosis, clubbing, or pedal edema. NEUROLOGICAL: Gross neurological examination did not reveal any focal deficits. SKIN: No rashes. Assessment and plan -Sepsis: Secondary to right lower lobe pneumonia patient will be continued on Rocephin and azithromycin -troponin elevation secondary to possibly type II myocardial infarction from sepsis with chronic elevation of troponin from chronic kidney disease. Although type I myocardial infarction cannot be ruled out patient will undergo echo patient will be continued on IV heparin crayon is following the patient -chronic kidney disease stage IV secondary to diuresis mellitus and diabetic nep hropathy -Diabetes mellitus patient will be resumed on his home regimen along with sliding scale monitor blood sugars -Multivessel coronary artery disease continue with the his cardiac medication at time -Peripheral arterial disease -Hypertension DVT prophylaxis: On anticoagulation with IV heparin Past Medical History Past Medical History: Heart Failure, Diabetes Mellitus, Deep Vein Thrombosis (DVT), Hyperlipidemia, Hypertension, Syncope Additional Past Medical History / Comment(s): -8 pt wants flu vaccine while here. other hx:per pt's "xray noted lung nodules". 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, L foot gr toe, 3rd &2nd toe amputated; Rfoot 3rd toe amputated, Bypass in Bilat legs, eulogio knee sx(cartilage), lt arm picc line.since removed, x3 sx total facial plastic sx and grafting done area under lt eye d/t injury, Ackerman placement.-rt upper chest Past Anesthesia/Blood Transfusion Reactions: Postoperative Nausea & Vomiting (PONV) Additional Past Anesthesia/Blood Transfusion Reaction / Comment(s): never recieved blood Past Psychological History: No Psychological Hx Reported Smoking Status: Never smoker Past Alcohol Use History: None Reported Past Drug Use History: None Reported - Past Family History Father Family Medical History: Deep Vein Thrombosis (DVT) Additional Family Medical History / Comment(s): had valve sx- a week later from complications Mother Family Medical History: Congestive Heart Failure (CHF) Additional Family Medical History / Comment(s): phlebitis Medications and Allergies Home Medications Medication Instructions Recorded Confirmed Type Aspirin EC [Ecotrin Low Dose] 81 mg PO DAILY@0800 06/18/19 11/09/22 History Multivitamin/Iron/Folic Acid 1 tab PO DAILY@79906/18/19 11/09/22 History [Centrum Complete Multivit Tab] Sennosides-Docusate Sodium 1 tab PO DAILY@00 06/18/19 11/09/22 History [Senokot-S] hydrALAZINE HCL [Apresoline] 100 mg PO TID@0800,1500,2200 06/18/19 11/09/22 History Prazosin HCl 4 mg PO TID@0800,1500,2200 09/05/19 11/09/22 History Apixaban [Eliquis] 5 mg PO BID@799,199903/04/21 11/09/22 History Atorvastatin [Lipitor] 40 mg PO HS@219901/27/22 11/09/22 History Cholecalciferol (Vitamin D3) 125 mcg PO DAILY@0800 01/27/22 11/09/22 History [Vitamin D3 (125 MCG = 5,000 IU)] Isosorbide Mononitrate ER [Imdur] 60 mg PO DAILY@0800 01/27/22 11/09/22 History Tamsulosin [Flomax] 0.4 mg PO HS@219901/27/22 11/09/22 History carvediloL [Coreg] 25 mg PO BID@799,199901/27/22 11/09/22 History cloNIDine HCL [Catapres] 0.2 mg PO TID@0800,1500,2200 01/27/22 11/09/22 History Insulin NPH Hum/Reg Insulin Hm 27 unit SQ W/SUPPER 11/09/22 11/09/22 History [humuLIN 70/30 Kwikpen] Insulin NPH Hum/Reg Insulin Hm 35 units SQ W/BRKFST 11/09/22 11/09/22 History [humuLIN 70/30 Kwikpen] Sodium Bicarbonate Tab 650 mg PO BID 11/09/22 11/09/22 History Allergies Allergy/AdvReac Type Severity Reaction Status Date / Time amlodipine Allergy Anaphylaxis Verified 11/09/22 07:39 lisinopril Allergy tongue Verified 11/09/22 07:39 swelling vancomycin Allergy seizure Verified 11/09/22 07:39 like activity Physical Exam Vitals: Vital Signs Temp Pulse Resp BP Pulse Ox FiO2 11/09/22 12:05 81 11/09/22 11:52 81 11/09/22 09:25 81 18 168/92 97 11/09/22 08:21 80 11/09/22 08:10 80 95 21 11/09/22 06:28 82 12 159/93 95 11/09/22 05:40 80 14 94 L 11/09/22 03:35 66 16 157/80 97 11/09/22 00:42 99.1 F 88 14 162/82 95 11/09/22 00:10 89 12 94 L 11/08/22 23:07 101.0 F H 96 16 162/86 94 L 11/08/22 22:37 73 18 11/08/22 22:31 71 18 11/08/22 22:03 102.0 F H 102 H 16 185/89 96 Intake and Output 11/08/22 11/09/22 11/09/22 22:59 06:59 14:59 Intake Total 70.518 Balance 70.518 Intake: Intake, IV Titration 70.518 Amount Heparin Sod,Pork in 0.45% 70.518 NaCl 25,000 unit In 0.45 % NaCl 1 250ml.bag @ 11 UNITS/KG/HR 9.979 mls/hr IV .Q[facility]H [facility] Rx#: [id number] Other: Weight 90.718 kg Results CBC & Chem 7: 11/08/22 22:13 11/08/22 22:13 Labs: Abnormal Lab Results - Last 24 Hours (Table) 11/08/22 11/08/22 11/08/22 Range/Units 22:13 22:13 22:13 RBC 3.69 L (4.30-5.90) m/uL Hgb 10.4 L (13.0-17.5) gm/dL Hct 30.7 L (39.0-53.0) % Lymphocytes # 0.2 L (1.0-4.8) k/uL APTT 30.9 H (22.0-30.0) sec Sodium 135 L (137-145) mmol/L BUN 40 H (9-20) mg/dL Creatinine 1.98 H (0.66-1.25) mg/dL Glucose 235 H (74-99) mg/dL POC Glucose (mg/dL) (70-110) mg/dL Troponin I (0.000-0.034) ng/mL Urine Protein (Negative) Urine Glucose (UA) (Negative) Urine Mucus (None) /hpf 11/08/22 11/08/22 11/09/22 Range/Units 22:13 23:07 02:00 RBC (4.30-5.90) m/uL Hgb (13.0-17.5) gm/dL Hct (39.0-53.0) % Lymphocytes # (1.0-4.8) k/uL APTT (22.0-30.0) sec Sodium (137-145) mmol/L BUN (9-20) mg/dL Creatinine (0.66-1.25) mg/dL Glucose (74-99) mg/dL POC Glucose (mg/dL) (70-110) mg/dL Troponin I 0.062 H* 1.550 H* (0.000-0.034) ng/mL Urine Protein 2+ H (Negative) Urine Glucose (UA) 3+ H (Negative) Urine Mucus Rare H (None) /hpf 11/09/22 11/09/22 11/09/22 Range/Units 05:34 09:13 10:34 RBC (4.30-5.90) m/uL Hgb (13.0-17.5) gm/dL Hct (39.0-53.0) % Lymphocytes # (1.0-4.8) k/uL APTT 43.7 H (22.0-30.0) sec Sodium (137-145) mmol/L BUN (9-20) mg/dL Creatinine (0.66-1.25) mg/dL Glucose (74-99) mg/dL POC Glucose (mg/dL) 218 H (70-110) mg/dL Troponin I 5.090 H* (0.000-0.034) ng/mL Urine Protein (Negative) Urine Glucose (UA) (Negative) Urine Mucus (None) /hpf
[2022-11-09 16:58] LABS: Glucose,Whole Blood 276 mg/dL (70-110)
[2022-11-09] MEDS: INSULN ASP PRT/INSULIN ASPART 100 UNIT/ML 10 ML VIAL SQ SCH (17:24)
[2022-11-09] MEDS: carvediloL 12.5 MG TAB PO SCH (17:25)
[2022-11-09 20:11] LABS: Glucose,Whole Blood 221 mg/dL (70-110)
[2022-11-09] MEDS: ATORVASTATIN 40 MG TAB PO SCH (21:29)
[2022-11-09] MEDS: TAMSULOSIN 0.4 MG CAP.ER.24H PO SCH (21:29)
[2022-11-09] MEDS: AZITHROMYCIN 500 MG in SODIUM CHLORIDE 0.9% 250 ML IVPB SCH (22:21)
[2022-11-09 23:33] LABS: Chol/HDL Ratio 3.39 Ratio; LDL Cholesterol,Calculated 44.6 mg/dL (0.0-131.0)
[2022-11-10] MEDS: HEPARIN SOD,PORK IN 0.45% NACL 25,000 UNIT in 0.45% NACL 1 250ML.BAG IV SCH (03:06)
[2022-11-10 06:03] LABS: Glucose,Whole Blood 116 mg/dL (70-110)
[2022-11-10] MEDS: INSULN ASP PRT/INSULIN ASPART 100 UNIT/ML 10 ML VIAL SQ SCH ×2 (06:33→17:54)
[2022-11-10] MEDS: carvediloL 12.5 MG TAB PO SCH ×2 (06:33→17:54)
[2022-11-10 06:48] LABS: HCT 30.1 % (39.0-53.0); HGB 9.5 gm/dL (13.0-17.5); Hypochromasia Marked; MCH 27.9 pg (25.0-35.0); MCHC 31.7 g/dL (31.0-37.0); Mean Platelet Volume 9.4; Platelet Count 131 k/uL (150-450); RBC 3.42 m/uL (4.30-5.90); RDW 14.3 % (11.5-15.5); WBC 5.8 k/uL (3.8-10.6)
[2022-11-10 07:01] LABS: Partial Thromboplastin Time 41.5 sec (22.0-30.0); Prothrombin Time 10.7 sec (9.0-12.0)
[2022-11-10 07:02] LABS: Calcium 8.5 mg/dL (8.4-10.2); Potassium 3.9 mmol/L (3.5-5.1)
[2022-11-10] MEDS: SODIUM BICARBONATE TAB 650 MG TAB PO SCH ×2 (09:32→21:15)
[2022-11-10] MEDS: SENNOSIDES-DOCUSATE SODIUM 1 EACH TAB PO SCH (09:32)
[2022-11-10] MEDS: ISOSORBIDE MONONITRATE ER 60 MG TAB.ER.24H PO SCH (09:32)
[2022-11-10] MEDS: ASPIRIN 325 MG TAB PO SCH (09:32)
[2022-11-10] MEDS: MULTIVITAMINS, THERA 1 EACH TAB PO SCH (09:32)
[2022-11-10] MEDS: cloNIDine HCL 0.2 MG TAB PO SCH ×3 (09:32→21:15)
[2022-11-10] MEDS: hydrALAZINE HCL 50 MG TAB PO SCH ×3 (09:33→21:15)
[2022-11-10] MEDS: CHOLECALCIFEROL 125 MCG (5000 IU) TABLET PO SCH (09:33)
[2022-11-10] MEDS: PRAZOSIN 1 MG CAP PO SCH ×3 (09:33→21:14)
--- NOTE | 2022-11-10 10:29 | P.PN ---
Subjective HISTORY OF PRESENTING ILLNESS Patient is a pleasant 77-year-old male with history of multivessel CAD treated medically, hypertension, chronic kidney disease, hyperlipidemia, diabetes, PAD, left [id number] amputation, bilateral pulmonary embolism on Eliquis, bilateral carotid artery stenosis. He had undergone heart catheterization 2016 which revealed 70-80% mid LAD stenosis, circumflex 70-80% stenosis, 90% stenosis of OM 1 and OM 2 as well as 80% stenosis of the RCA. He is not a good candidate for surgery and therefore had been treated medically secondary to his chronic kidney disease. He has had chronically elevated troponins in the 0.2-0.3 range. Per patient he had a mechanical fall and denies any syncope or lightheadedness. Additionally has been having a cough and fever and generalized weakness. He presented with a fever of 102. Blood pressure mildly elevated in the 140s to 170s systolics. He denies any chest pain, pressure, jaw pain, epigastric pain. He denies any real shortness breath. Chest x-ray shows new left lower lobe infiltrate. Blood work shows hemoglobin 10.4, creatinine 1.98, troponin 0.06, 1.5, 5.0. L actic acid 1.4. 11/10 Patient seen and examined. Patient admits he still feels somewhat feverish and chilled at times. Still with a mild cough. Denies any chest pain or pressure. Creatinine stable at 1.96. PHYSICAL EXAMINATION Vital signs reviewed. CONSTITUTIONAL: No apparent distress, chronically ill appearing HEENT: Head is normocephalic. Pupils are equal, round. Sclerae anicteric. Mucous membranes of the mouth are moist. No JVD. No carotid bruit. CHEST EXAMINATION: Lungs are clear to auscultation. No chest wall tenderness is noted on palpation or with deep breathing. HEART EXAMINATION: Regular rate and rhythm. S1, S2 heard. No murmurs, gallops or rub. ABDOMEN: Soft, nontender. Positive bowel sounds. EXTREMITIES: 2+ peripheral pulses, no lower extremity edema and no calf tenderne ss. +LLE amputation NEUROLOGIC EXAMINATION: Patient is awake, alert and oriented x3. ASSESSMENT 1. Non-STEMI may be related to type II mechanism from pneumonia versus worsening of his underlying CAD 2. Multivessel CAD diagnosed by heart catheterization 2016 and treated medically secondary to CPD 3. PAD 4. Chronic kidney disease 5. Left lower lobe pneumonia 6. Hypertension 7. Fall, mechanical per patient PLAN Patient without any significant angina-type symptoms however does have much in creased troponin from his normal chronically mild troponin elevations. May be type II mechanism from pneumonia with his known severe CAD. May be type I mechanism however increased risk of any heart catheterization for contrast- induced nephropathy. Continue antianginal medications with carvedilol and Imdur. S/p 24 hrs of heparin and we will stop. Await 2-D echo. Further recommendations to follow. Objective - Vital Signs Vital signs: Vital Signs Temp 97.4 F L 11/10/22 04:00 Pulse 87 11/10/22 04:00 Resp 15 11/10/22 04:00 BP 184/97 11/10/22 04:00 Pulse Ox 98 11/10/22 04:00 FiO2 21 11/09/22 08:10 Intake & Output 11/09/22 11/10/22 11/10/22 18:59 06:59 18:59 Intake Total 245.321 122.679 50.12 Output Total 550 Balance 245.321 -427.321 50.12 Intake: Intake, IV Titration 127.321 122.679 50.12 Amount Heparin Sod,Pork in 0.45% 127.321 122.679 50.12 NaCl 25,000 unit In 0.45 % NaCl 1 250ml.bag @ 11 UNITS/KG/HR 9.979 mls/hr IV .Q24H [facility] Rx#: [id number] Oral 118 Output: Urine 550 Other: Voiding Method Urinal - Labs CBC & Chem 7: 11/10/22 06:18 11/10/22 06:18 Labs: Abnormal Lab Results - Last 24 Hours (Table) 11/09/22 11/09/22 11/09/22 Range/Units 10:34 14:48 14:48 RBC (4.30-5.90) m/uL Hgb (13.0-17.5) gm/dL Hct (39.0-53.0) % Plt Count (150-450) k/uL APTT 49.2 H (22.0-30.0) sec Sodium (137-145) mmol/L Chloride (98-107) mmol/L Carbon Dioxide (22-30) mmol/L BUN (9-20) mg/dL Creatinine (0.66-1.25) mg/dL Glucose (74-99) mg/dL POC Glucose (mg/dL) 218 H (70-110) mg/dL HDL Cholesterol (40.00-60.00) mg/dL Procalcitonin 0.21 H (0.02-0.09) ng/mL 11/09/22 11/09/22 11/09/22 Range/Units 14:48 16:57 20:08 RBC (4.30-5.90) m/uL Hgb (13.0-17.5) gm/dL Hct (39.0-53.0) % Plt Count (150-450) k/uL APTT (22.0-30.0) sec Sodium (137-145) mmol/L Chloride (98-107) mmol/L Carbon Dioxide (22-30) mmol/L BUN (9-20) mg/dL Creatinine (0.66-1.25) mg/dL Glucose (74-99) mg/dL POC Glucose (mg/dL) 276 H 221 H (70-110) mg/dL HDL Cholesterol 29.80 L (40.00-60.00) mg/dL Procalcitonin (0.02-0.09) ng/mL 11/10/22 11/10/22 11/10/22 Range/Units 06:02 06:18 06:18 RBC 3.42 L (4.30-5.90) m/uL Hgb 9.5 L (13.0-17.5) gm/dL Hct 30.1 L (39.0-53.0) % Plt Count 131 L (150-450) k/uL APTT 41.5 H (22.0-30.0) sec Sodium (137-145) mmol/L Chloride (98-107) mmol/L Carbon Dioxide (22-30) mmol/L BUN (9-20) mg/dL Creatinine (0.66-1.25) mg/dL Glucose (74-99) mg/dL POC Glucose (mg/dL) 116 H (70-110) mg/dL HDL Cholesterol (40.00-60.00) mg/dL Procalcitonin (0.02-0.09) ng/mL 11/10/22 Range/Units 06:18 RBC (4.30-5.90) m/uL Hgb (13.0-17.5) gm/dL Hct (39.0-53.0) % Plt Count (150-450) k/uL APTT (22.0-30.0) sec Sodium 136 L (137-145) mmol/L Chloride 110 H (98-107) mmol/L Carbon Dioxide 18 L (22-30) mmol/L BUN 40 H (9-20) mg/dL Creatinine 1.96 H (0.66-1.25) mg/dL Glucose 109 H (74-99) mg/dL POC Glucose (mg/dL) (70-110) mg/dL HDL Cholesterol (40.00-60.00) mg/dL Procalcitonin (0.02-0.09) ng/mL Microbiology - Last 24 Hours (Table) 11/08/22 22:10 Blood Culture - Preliminary Blood No Growth after 24 hours 11/08/22 22:00 Blood Culture - Preliminary Blood No Growth after 24 hours
[2022-11-10] MEDS: IPRATROPIUM-ALBUTEROL 3 ML NEB INHALATION PRN (11:38)
[2022-11-10 11:46] LABS: Glucose,Whole Blood 137 mg/dL (70-110)
--- NOTE | 2022-11-10 13:27 | CA ---
Transthoracic Echo Report Name: Vladimir Torres Age: 77 Gender: M : 1945 Exam Date: 11/10/2022 11:20 Exam Location: [place] [facility] Ht (in): 72 Wt (lb): 200 Ordering Physician: Josiah Best DO ([email or web address]) Attending/Referring Phys: Clinical Appeals Rn Gini Berumen RDCS Procedure CPT: Indications: re: NSTEMI Cardiac Hx: Technical Quality: Technically difficult study Contrast 1: Lumason Total Dose (mL): 4 Contrast 2: Total Dose (mL): MEASUREMENTS (Male / Female) Normal Values 2D ECHO LA Volume 96.1 cm??? 18 - 58 / 22 - 52 cm??? M-MODE Aortic Root Diameter MM 3.8 cm LA Systolic Diameter MM 4.9 cm LA Ao Ratio MM 1.3 MV E Point Septal Separation 0.7 cm AV Cusp Separation MM 1.9 cm DOPPLER MV Area PHT 4.7 cm??? Mitral E Point Velocity 88.2 cm/s Mitral A Point Velocity 64.2 cm/s Mitral E to A Ratio 1.4 MV Deceleration Time 160.1 ms MV E' Velocity 6.2 cm/s Mitral E to MV E' Ratio 14.3 FINDINGS Left Ventricle Left ventricular ejection fraction is estimated at 45%. Apical Septal hypokinesis.Mildly increased left ventricular wall thickness. Right Ventricle Normal right ventricular size and function. Right ventricular systolic pressure within normal limits. Right Atrium Normal right atrial size. Left Atrium Severely increased left atrial volume. Mildly increased left atrial area. Mitral Valve Structurally normal mitral valve. Mild mitral regurgitation. Aortic Valve Trileaflet aortic valve. Aortic valve sclerosis. Tricuspid Valve Structurally normal tricuspid valve. Mild tricuspid regurgitation. Pulmonic Valve Structurally normal pulmonic valve. Pericardium Normal pericardium. Aorta Normal size aortic root and proximal ascending aorta. CONCLUSIONS Mildly impaired LV function with EF around 45% Previewed by: Dr. Silas Avila MD (Electronically Signed) Final Date: 10 November 2022 13:26
[2022-11-10 17:04] LABS: Glucose,Whole Blood 165 mg/dL (70-110)
[2022-11-10] MEDS: HEPARIN SODIUM,PORCINE/PF 5,000 UNIT/0.5 ML SYRINGE SQ SCH (17:54)
[2022-11-10 20:03] LABS: Glucose,Whole Blood 152 mg/dL (70-110)
[2022-11-10] MEDS: AZITHROMYCIN 500 MG in SODIUM CHLORIDE 0.9% 250 ML IVPB SCH (21:06)
[2022-11-10] MEDS: TAMSULOSIN 0.4 MG CAP.ER.24H PO SCH (21:15)
[2022-11-10] MEDS: ATORVASTATIN 40 MG TAB PO SCH (21:15)
[2022-11-11] MEDS: HEPARIN SODIUM,PORCINE/PF 5,000 UNIT/0.5 ML SYRINGE SQ SCH ×4 (00:01→23:18)
[2022-11-11 05:55] LABS: Glucose,Whole Blood 82 mg/dL (70-110)
--- NOTE | 2022-11-11 06:32 | P.PN ---
Subjective Progress Note Date: 11/10/22 Patient is a pleasant 77-year-old male with a history of multivessel coronary artery disease came in with the complaints of Vivian's weakness, fever has been going on for a few days. Patient has nonproductive cough patient denied any history of smoking. Patient does have elevated creatinine of 1.98 baseline creatinine is around that. Patient had history of Coronary artery disease but in the past medical that he was recommended medical management. Patient is found to have serum troponin of 0.06, 1.5 and 5. Patient was evaluated by cardiology and it was believed that the his troponin elevation is secondary to his long-standing coronary artery disease chronic kidney disease and sepsis, echo is being obtained and patient will be monitored on heparin patient usually takes eliquis at home for history of PE in the past. Chest x-ray showing left middle/lower lobe infiltrate although patient only had one view x-ray at this time. Patient negative for influenza, COVID-19, RSV 11/10/2022 Patient is seen and evaluated and followed this morning continues to be short of breath continues with cough being followed by cardiology. Patient did have elevated troponins recommending continuing IV heparin for an additional 24 hours. Patient was found to have positive blood cultures and maintained on c eftriaxone along with Zithromax and will repeat blood cultures. Most likely contaminant. Follow-up on cultures. Patient with significant weakness although reports he is mostly wheelchair bound and lives with family with support at home. 2-D echo is ordered and pending at this time. Patient is afebrile vital signs are stable and is 96% on room air. Cardiac medications have been resumed. Cardiology is following. Review of systems: Constitutional: No reports of fatigue, fever, or chills Cardiovascular: No reports of chest pain or palpitations Respiratory: reports of intermittent shortness of breath and cough GI: No reports of nausea, vomiting, or diarrhea : No reports of dysuria or retention Neurovascular: No reports of increased weakness and patient reports he is wheelchair-bound PHYSICAL EXAMINATION: GENERAL: The patient is alert and oriented x3, not in any acute distress. Well developed, well nourished. HEENT: Pupils are round and equally reacting to light. EOMI. No scleral icterus. No conjunctival pallor. Normocephalic, atraumatic. No pharyngeal erythema. No thyromegaly. CARDIOVASCULAR: S1 and S2 present. No murmurs, rubs, or gallops. PULMONARY: Chest is clear to auscultation, no wheezing or crackles. ABDOMEN: Soft, nontender, nondistended, normoactive bowel sounds. No palpable organomegaly. MUSCULOSKELETAL: No joint swelling or deformity. EXTREMITIES: No cyanosis, clubbing, or pedal edema. NEUROLOGICAL: Gross neurological examination did not reveal any focal deficits. SKIN: No rashes. Assessment: -Sepsis: Secondary to right lower lobe pneumonia patient will be continued on Rocephin and azithromycin -troponin elevation secondary to possibly type II myocardial infarction from sepsis with chronic elevation of troponin from chronic kidney disease. Although type I myocardial infarction cannot be ruled out, 2-D echo pending 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 and diabetic nephropathy -Diabetes mellitus, continue with sliding scale monitor blood sugars -Multivessel coronary artery disease continue with the his cardiac medication at time -Peripheral arterial disease -Hypertension -DVT prophylaxis: On anticoagulation sub q heparin -No code Plan: Recommend to continue on antibiotics in the form of ceftriaxone and Zithromax Cardiology following for elevated troponins likely type II mechanism due to pneumonia and has been maintained on IV heparin being transitioned to subcutaneous heparin Kidney functions elevated and will follow-up with repeat labs in the a.m. Blood cultures positive for gram-positive bacilli and will repeat cultures continue with current medications Will follow-up with cardiology about discharge planning Possible discharge in the next 24-48 hours The impression and plan of care has been dictated by Martha Maloney, Nurse Practitioner as directed. Dr. Cory MD I have performed a history and examination and MDM of this patient, discussed the same with the dictator, and agree with the dictator's assessment and plan as written ,documented as a scribe. Based on total visit time, I have performed more than 50% of the visit. Objective - Vital Signs Vital signs: Vital Signs Temp 97.4 F L 11/10/22 04:00 Pulse 87 11/10/22 04:00 Resp 15 11/10/22 04:00 BP 184/97 11/10/22 04:00 Pulse Ox 98 11/10/22 04:00 FiO2 21 11/09/22 08:10 Intake & Output 11/09/22 11/10/22 11/10/22 18:59 06:59 18:59 Intake Total 245.321 122.679 50.12 Output Total 550 Balance 245.321 -427.321 50.12 Intake: Intake, IV Titration 127.321 122.679 50.12 Amount Heparin Sod,Pork in 0.45% 127.321 122.679 50.12 NaCl 25,000 unit In 0.45 % NaCl 1 250ml.bag @ 11 UNITS/KG/HR 9.979 mls/hr IV .Q24H [facility] Rx#: [id number] Oral 118 Output: Urine 550 Other: Voiding Method Urinal - Labs CBC & Chem 7: 11/10/22 06:18 11/10/22 06:18 Labs: Abnormal Lab Results - Last 24 Hours (Table) 11/09/22 11/09/22 11/09/22 Range/Units 09:13 10:34 14:48 RBC (4.30-5.90) m/uL Hgb (13.0-17.5) gm/dL Hct (39.0-53.0) % Plt Count (150-450) k/uL APTT 43.7 H 49.2 H (22.0-30.0) sec Sodium (137-145) mmol/L Chloride (98-107) mmol/L Carbon Dioxide (22-30) mmol/L BUN (9-20) mg/dL Creatinine (0.66-1.25) mg/dL Glucose (74-99) mg/dL POC Glucose (mg/dL) 218 H (70-110) mg/dL HDL Cholesterol (40.00-60.00) mg/dL Procalcitonin (0.02-0.09) ng/mL 11/09/22 11/09/22 11/09/22 Range/Units 14:48 14:48 16:57 RBC (4.30-5.90) m/uL Hgb (13.0-17.5) gm/dL Hct (39.0-53.0) % Plt Count (150-450) k/uL APTT (22.0-30.0) sec Sodium (137-145) mmol/L Chloride (98-107) mmol/L Carbon Dioxide (22-30) mmol/L BUN (9-20) mg/dL Creatinine (0.66-1.25) mg/dL Glucose (74-99) mg/dL POC Glucose (mg/dL) 276 H (70-110) mg/dL HDL Cholesterol 29.80 L (40.00-60.00) mg/dL Procalcitonin 0.21 H (0.02-0.09) ng/mL 11/09/22 11/10/22 11/10/22 Range/Units 20:08 06:02 06:18 RBC (4.30-5.90) m/uL Hgb (13.0-17.5) gm/dL Hct (39.0-53.0) % Plt Count (150-450) k/uL APTT 41.5 H (22.0-30.0) sec Sodium (137-145) mmol/L Chloride (98-107) mmol/L Carbon Dioxide (22-30) mmol/L BUN (9-20) mg/dL Creatinine (0.66-1.25) mg/dL Glucose (74-99) mg/dL POC Glucose (mg/dL) 221 H 116 H (70-110) mg/dL HDL Cholesterol (40.00-60.00) mg/dL Procalcitonin (0.02-0.09) ng/mL 11/10/22 11/10/22 Range/Units 06:18 06:18 RBC 3.42 L (4.30-5.90) m/uL Hgb 9.5 L (13.0-17.5) gm/dL Hct 30.1 L (39.0-53.0) % Plt Count 131 L (150-450) k/uL APTT (22.0-30.0) sec Sodium 136 L (137-145) mmol/L Chloride 110 H (98-107) mmol/L Carbon Dioxide 18 L (22-30) mmol/L BUN 40 H (9-20) mg/dL Creatinine 1.96 H (0.66-1.25) mg/dL Glucose 109 H (74-99) mg/dL POC Glucose (mg/dL) (70-110) mg/dL HDL Cholesterol (40.00-60.00) mg/dL Procalcitonin (0.02-0.09) ng/mL Microbiology - Last 24 Hours (Table) 11/08/22 22:10 Blood Culture - Preliminary Blood No Growth after 24 hours 11/08/22 22:00 Blood Culture - Preliminary Blood No Growth after 24 hours
[2022-11-11] MEDS: carvediloL 12.5 MG TAB PO SCH ×2 (06:45→17:43)
[2022-11-11 09:10] LABS: Calcium 8.2 mg/dL (8.4-10.2); Potassium 3.8 mmol/L (3.5-5.1)
[2022-11-11 09:15] LABS: Basophils % (A) 1 %; Eosinophils # (A) 0.4 k/uL (0-0.7); Eosinophils % (A) 7 %; HCT 27.1 % (39.0-53.0); HGB 8.5 gm/dL (13.0-17.5); Hypochromasia Moderate; Lymphocytes # (A) 0.6 k/uL (1.0-4.8); Lymphocytes % (A) 10 %; MCH 27.2 pg (25.0-35.0); MCHC 31.3 g/dL (31.0-37.0); MCV 86.8 fL (80.0-100.0); Mean Platelet Volume 10.2; Monocytes # (A) 0.3 k/uL (0-1.0); Monocytes % (A) 6 %; Neutrophils # (A) 3.8 k/uL (1.3-7.7); Neutrophils % (A) 72 %; Platelet Count 147 k/uL (150-450); RBC 3.12 m/uL (4.30-5.90); RDW 14.7 % (11.5-15.5); WBC 5.2 k/uL (3.8-10.6)
[2022-11-11] MEDS: SODIUM BICARBONATE TAB 650 MG TAB PO SCH ×2 (09:34→20:09)
[2022-11-11] MEDS: ASPIRIN 325 MG TAB PO SCH (09:34)
[2022-11-11] MEDS: CHOLECALCIFEROL 125 MCG (5000 IU) TABLET PO SCH (09:34)
[2022-11-11] MEDS: INSULN ASP PRT/INSULIN ASPART 100 UNIT/ML 10 ML VIAL SQ SCH ×2 (09:34→17:46)
[2022-11-11] MEDS: hydrALAZINE HCL 50 MG TAB PO SCH ×3 (09:34→20:09)
[2022-11-11] MEDS: cloNIDine HCL 0.2 MG TAB PO SCH ×3 (09:35→20:09)
[2022-11-11] MEDS: SENNOSIDES-DOCUSATE SODIUM 1 EACH TAB PO SCH (09:35)
[2022-11-11] MEDS: ISOSORBIDE MONONITRATE ER 60 MG TAB.ER.24H PO SCH (09:35)
[2022-11-11] MEDS: MULTIVITAMINS, THERA 1 EACH TAB PO SCH (09:35)
[2022-11-11] MEDS: PRAZOSIN 1 MG CAP PO SCH ×3 (09:35→20:09)
--- NOTE | 2022-11-11 11:24 | P.PN ---
Subjective HISTORY OF PRESENTING ILLNESS Patient is a pleasant 77-year-old male with history of multivessel CAD treated medically, hypertension, chronic kidney disease, hyperlipidemia, diabetes, PAD, left [id number] amputation, bilateral pulmonary embolism on Eliquis, bilateral carotid artery stenosis. He had undergone heart catheterization 2016 which revealed 70-80% mid LAD stenosis, circumflex 70-80% stenosis, 90% stenosis of OM 1 and OM 2 as well as 80% stenosis of the RCA. He is not a good candidate for surgery and therefore had been treated medically secondary to his chronic kidney disease. He has had chronically elevated troponins in the 0.2-0.3 range. Per patient he had a mechanical fall and denies any syncope or lightheadedness. Additionally has been having a cough and fever and generalized weakness. He presented with a fever of 102. Blood pressure mildly elevated in the 140s to 170s systolics. He denies any chest pain, pressure, jaw pain, epigastric pain. He denies any real shortness breath. Chest x-ray shows new left lower lobe infiltrate. Blood work shows hemoglobin 10.4, creatinine 1.98, troponin 0.06, 1.5, 5.0. L actic acid 1.4. 11/10 Patient seen and examined. Patient admits he still feels somewhat feverish and chilled at times. Still with a mild cough. Denies any chest pain or pressure. Creatinine stable at 1.96. 11/11 Patient seen and examined. Patient denies a chest pain or pressure. Denies any further fevers or chills. Cr today 2.06, BUN 36. Echo showed left ventricular ejection fraction 45% with apical septal hypokinesis. PHYSICAL EXAMINATION Vital signs reviewed. CONSTITUTIONAL: No apparent distress, chronically ill appearing HEENT: Head is normocephalic. Pupils are equal, round. Sclerae anicteric. Mucous membranes of the mouth are moist. No JVD. No carotid bruit. CHEST EXAMINATION: Lungs are clear to auscultation. No chest wall tenderness is noted on palpation or with deep breathing. HEART EXAMINATION: Regular rate and rhythm. S1, S2 heard. No murmurs, gallops or rub. ABDOMEN: Soft, nontender. Positive bowel sounds. EXTREMITIES: 2+ peripheral pulses, no lower extremity edema and no calf tenderness. +LLE amputation NEUROLOGIC EXAMINATION: Patient is awake, alert and oriented x3. ASSESSMENT 1. Non-STEMI may be related to type II mechanism from pneumonia versus worseni ng of his underlying CAD 2. Multivessel CAD diagnosed by heart catheterization 2017 and treated med gerilly secondary to CPD 3. PAD 4. Chronic kidney disease 5. Left lower lobe pneumonia 6. Hypertension 7. Fall, mechanical per patient PLAN Patient overall appears fairly stable from a cardiac standpoint. Left ventricular ejection fraction predominantly preserved with ejection fraction 45% and septal hypokinesis. Given multiple medical comorbidities and presentation mainly consistent with pneumonia continue with medical therapy. No further recommendations from cardiology standpoint. Please call with any questions. Objective - Vital Signs Vital signs: Vital Signs Temp 98.7 F 11/11/22 09:31 Pulse 72 11/11/22 09:31 Resp 16 11/11/22 04:15 BP 144/69 11/11/22 09:31 Pulse Ox 97 11/11/22 09:31 FiO2 21 11/09/22 08:10 Intake & Output 11/10/22 11/11/22 11/11/22 18:59 06:59 18:59 Intake Total 648.12 118 Output Total 800 175 Balance 648.12 -800 -57 Intake: Intake, IV Titration 50.12 Amount Heparin Sod,Pork in 0.45% 50.12 NaCl 25,000 unit In 0.45 % NaCl 1 250ml.bag @ 11 UNITS/KG/HR 9.979 mls/hr IV .Q24H [facility] Rx#: [id number] Oral 598 118 Output: Urine 800 175 Other: Voiding Method Urinal Urinal Urinal - Labs CBC & Chem 7: 11/11/22 08:07 11/11/22 08:07 Labs: Abnormal Lab Results - Last 24 Hours (Table) 11/10/22 11/10/22 11/10/22 Range/Units 11:44 17:03 20:03 RBC (4.30-5.90) m/uL Hgb (13.0-17.5) gm/dL Hct (39.0-53.0) % Plt Count (150-450) k/uL Lymphocytes # (1.0-4.8) k/uL Chloride (98-107) mmol/L Carbon Dioxide (22-30) mmol/L BUN (9-20) mg/dL Creatinine (0.66-1.25) mg/dL POC Glucose (mg/dL) 137 H 165 H 152 H (70-110) mg/dL Calcium (8.4-10.2) mg/dL 11/11/22 11/11/22 Range/Units 08:07 08:07 RBC 3.12 L (4.30-5.90) m/uL Hgb 8.5 L (13.0-17.5) gm/dL Hct 27.1 L (39.0-53.0) % Plt Count 147 L (150-450) k/uL Lymphocytes # 0.6 L (1.0-4.8) k/uL Chloride 111 H (98-107) mmol/L Carbon Dioxide 19 L (22-30) mmol/L BUN 36 H (9-20) mg/dL Creatinine 2.06 H (0.66-1.25) mg/dL POC Glucose (mg/dL) (70-110) mg/dL Calcium 8.2 L (8.4-10.2) mg/dL Microbiology - Last 24 Hours (Table) 11/08/22 22:10 Blood Culture Gram Stain - Final Blood Blood Culture - Final Diphtheroid species 11/08/22 22:00 Blood Culture - Preliminary Blood No Growth after 48 hours 11/08/22 22:10 Blood Culture - Final Blood
[2022-11-11 11:30] LABS: Glucose,Whole Blood 171 mg/dL (70-110)
[2022-11-11 11:34] VITALS: BMI 25.0
[2022-11-11 16:51] LABS: Glucose,Whole Blood 136 mg/dL (70-110)
[2022-11-11] MEDS: AZITHROMYCIN 500 MG in SODIUM CHLORIDE 0.9% 250 ML IVPB SCH (20:08)
[2022-11-11] MEDS: ATORVASTATIN 40 MG TAB PO SCH (20:09)
[2022-11-11] MEDS: TAMSULOSIN 0.4 MG CAP.ER.24H PO SCH (20:09)
[2022-11-11 20:10] LABS: Glucose,Whole Blood 111 mg/dL (70-110)
--- NOTE | 2022-11-12 00:39 | P.PN ---
Subjective Progress Note Date: 11/11/22 Patient is a pleasant 77-year-old male with a history of multivessel coronary artery disease came in with the complaints of Vivian's weakness, fever has been going on for a few days. Patient has nonproductive cough patient denied any history of smoking. Patient does have elevated creatinine of 1.98 baseline creatinine is around that. Patient had history of Coronary artery disease but in the past medical that he was recommended medical management. Patient is found to have serum troponin of 0.06, 1.5 and 5. Patient was evaluated by cardiology and it was believed that the his troponin elevation is secondary to his long-standing coronary artery disease chronic kidney disease and sepsis, echo is being obtained and patient will be monitored on heparin patient usually takes eliquis at home for history of PE in the past. Chest x-ray showing left middle/lower lobe infiltrate although patient only had one view x-ray at this time. Patient negative for influenza, COVID-19, RSV 11/10/2022 Patient is seen and evaluated and followed this morning continues to be short of breath continues with cough being followed by cardiology. Patient did have elevated troponins recommending continuing IV heparin for an additional 24 hours. Patient was found to have positive blood cultures and maintained on c eftriaxone along with Zithromax and will repeat blood cultures. Most likely contaminant. Follow-up on cultures. Patient with significant weakness although reports he is mostly wheelchair bound and lives with family with support at home. 2-D echo is ordered and pending at this time. Patient is afebrile vital signs are stable and is 96% on room air. Cardiac medications have been resumed. Cardiology is following. 11/11/2022 Patient seen in follow-up ceftriaxone along with Zithromax being followed by wire web worker. Patient did have elevated troponins most likely due to current infection. Patient was initially to be discharged as repeat blood cultures are negative. Patient with weakness and family feels they are unable to care for him at home and will like to go to rehab. Will have PT/OT evaluate the patient and discuss with case management is patient will require insurance authori zation. Will initiate the process. Patient is currently afebrile denies chest pain or shortness of breath. Patient is maintaining saturations above 90% on room air. Patient reports not eating very well with not much of an appetite. Will add ensure supplements. Awaiting PT notes Review of systems: Constitutional: No reports of fatigue, fever, or chills Cardiovascular: No reports of chest pain or palpitations Respiratory: reports of intermittent shortness of breath and cough GI: No reports of nausea, vomiting, or diarrhea : No reports of dysuria or retention Neurovascular: reports of increased weakness and patient reports he is wheelchair-bound PHYSICAL EXAMINATION: GENERAL: The patient is alert and oriented x3, not in any acute distress. Well developed, well nourished. HEENT: Pupils are round and equally reacting to light. EOMI. No scleral icterus. No conjunctival pallor. Normocephalic, atraumatic. No pharyngeal erythema. No thyromegaly. CARDIOVASCULAR: S1 and S2 present. No murmurs, rubs, or gallops. PULMONARY: Chest is clear to auscultation, no wheezing or crackles. ABDOMEN: Soft, nontender, nondistended, normoactive bowel sounds. No palpable organomegaly. MUSCULOSKELETAL: No joint swelling or deformity. EXTREMITIES: No cyanosis, clubbing, or pedal edema. NEUROLOGICAL: Gross neurological examination did not reveal any focal deficits. Diffusely weak SKIN: No rashes. Assessment: -Sepsis: Secondary to right lower lobe pneumonia patient will be continued on Rocephin and azithromycin -troponin elevation secondary to possibly type II myocardial infarction from sepsis with chronic elevation of troponin from chronic kidney disease. 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 and diabetic nephropathy -Diabetes mellitus, continue with sliding scale monitor blood sugars -Multivessel coronary artery disease continue with the his cardiac medication at time -Peripheral arterial disease -Hypertension -DVT prophylaxis: On anticoagulation sub q heparin -No code Plan: Recommend to continue on antibiotics in the form of ceftriaxone and Zithromax and will transition to oral to complete the course Cardiology following for elevated troponins likely type II mechanism due to pneumonia and has been transitioned to subcutaneous heparin Kidney functions elevated although stable and would recommend follow-up with nephrology outpatient Blood cultures showed diphtheroids series most likely contaminant Discharge planning and process patient was continued care feels she is unable to care for him now as he has become significantly during hospitalization and would like to [facility]. Case management contacted and will obtain PT/OT therapy notes and will require insurance authorization. Prognosis is guarded The impression and plan of care has been dictated by Martha Maloney, Nurse Practitioner as directed. Dr. Cory MD I have performed a history and examination and MDM of this patient, discussed the same with the dictator, and agree with the dictator's assessment and plan as written ,documented as a scribe. Based on total visit time, I have performed more than 50% of the visit. Objective - Vital Signs Vital signs: Vital Signs Temp 98.7 F 11/11/22 09:31 Pulse 72 11/11/22 09:31 Resp 16 11/11/22 04:15 BP 144/69 11/11/22 09:31 Pulse Ox 97 11/11/22 09:31 FiO2 21 11/09/22 08:10 Intake & Output 11/10/22 11/11/22 11/11/22 18:59 06:59 18:59 Intake Total 648.12 Output Total 800 175 Balance 648.12 -800 -175 Intake: Intake, IV Titration 50.12 Amount Heparin Sod,Pork in 0.45% 50.12 NaCl 25,000 unit In 0.45 % NaCl 1 250ml.bag @ 11 UNITS/KG/HR 9.979 mls/hr IV .Q24H [facility] Rx#: [id number] Oral 598 Output: Urine 800 175 Other: Voiding Method Urinal Urinal - Labs CBC & Chem 7: 11/11/22 08:07 11/11/22 08:07 Labs: Abnormal Lab Results - Last 24 Hours (Table) 11/10/22 11/10/22 11/10/22 Range/Units 11:44 17:03 20:03 RBC (4.30-5.90) m/uL Hgb (13.0-17.5) gm/dL Hct (39.0-53.0) % Plt Count (150-450) k/uL Lymphocytes # (1.0-4.8) k/uL Chloride (98-107) mmol/L Carbon Dioxide (22-30) mmol/L BUN (9-20) mg/dL Creatinine (0.66-1.25) mg/dL POC Glucose (mg/dL) 137 H 165 H 152 H (70-110) mg/dL Calcium (8.4-10.2) mg/dL 11/11/22 11/11/22 Range/Units 08:07 08:07 RBC 3.12 L (4.30-5.90) m/uL Hgb 8.5 L (13.0-17.5) gm/dL Hct 27.1 L (39.0-53.0) % Plt Count 147 L (150-450) k/uL Lymphocytes # 0.6 L (1.0-4.8) k/uL Chloride 111 H (98-107) mmol/L Carbon Dioxide 19 L (22-30) mmol/L BUN 36 H (9-20) mg/dL Creatinine 2.06 H (0.66-1.25) mg/dL POC Glucose (mg/dL) (70-110) mg/dL Calcium 8.2 L (8.4-10.2) mg/dL Microbiology - Last 24 Hours (Table) 11/08/22 22:10 Blood Culture Gram Stain - Final Blood Blood Culture - Final Diphtheroid species 11/08/22 22:00 Blood Culture - Preliminary Blood No Growth after 48 hours 11/08/22 22:10 Blood Culture - Final Blood
[2022-11-12 06:12] LABS: Glucose,Whole Blood 97 mg/dL (70-110)
[2022-11-12] MEDS: carvediloL 12.5 MG TAB PO SCH ×2 (06:21→17:52)
[2022-11-12] MEDS: IPRATROPIUM-ALBUTEROL 3 ML NEB INHALATION PRN (07:53)
[2022-11-12 08:07] LABS: Calcium 8.2 mg/dL (8.4-10.2); Potassium 4.1 mmol/L (3.5-5.1)
[2022-11-12] MEDS: HEPARIN SODIUM,PORCINE/PF 5,000 UNIT/0.5 ML SYRINGE SQ SCH ×2 (10:59→17:53)
[2022-11-12] MEDS: CHOLECALCIFEROL 125 MCG (5000 IU) TABLET PO SCH (11:00)
[2022-11-12] MEDS: ASPIRIN 325 MG TAB PO SCH (11:00)
[2022-11-12] MEDS: SENNOSIDES-DOCUSATE SODIUM 1 EACH TAB PO SCH (11:00)
[2022-11-12] MEDS: MULTIVITAMINS, THERA 1 EACH TAB PO SCH (11:00)
[2022-11-12] MEDS: ISOSORBIDE MONONITRATE ER 60 MG TAB.ER.24H PO SCH (11:00)
[2022-11-12] MEDS: cloNIDine HCL 0.2 MG TAB PO SCH ×3 (11:00→20:20)
[2022-11-12] MEDS: hydrALAZINE HCL 50 MG TAB PO SCH ×3 (11:00→20:20)
[2022-11-12] MEDS: INSULN ASP PRT/INSULIN ASPART 100 UNIT/ML 10 ML VIAL SQ SCH ×2 (11:00→17:52)
[2022-11-12] MEDS: PRAZOSIN 1 MG CAP PO SCH ×3 (11:01→20:20)
[2022-11-12] MEDS: SODIUM BICARBONATE TAB 650 MG TAB PO SCH ×2 (11:01→20:20)
[2022-11-12 11:50] LABS: Glucose,Whole Blood 189 mg/dL (70-110)
[2022-11-12] MEDS ORDERED: MAGNESIUM HYDROXIDE 2,400 MG/10 ML CUP PO PRN (12:39)
--- NOTE | 2022-11-12 15:13 | P.PN ---
Subjective Progress Note Date: 11/12/22 Patient is a pleasant 77-year-old male with a history of multivessel coronary artery disease came in with the complaints of Vivian's weakness, fever has been going on for a few days. Patient has nonproductive cough patient denied any history of smoking. Patient does have elevated creatinine of 1.98 baseline creatinine is around that. Patient had history of Coronary artery disease but in the past medical that he was recommended medical management. Patient is found to have serum troponin of 0.06, 1.5 and 5. Patient was evaluated by cardiology and it was believed that the his troponin elevation is secondary to his long-standing coronary artery disease chronic kidney disease and sepsis, echo is being obtained and patient will be monitored on heparin patient usually takes eliquis at home for history of PE in the past. Chest x-ray showing left middle/lower lobe infiltrate although patient only had one view x-ray at this time. Patient negative for influenza, COVID-19, RSV 11/10/2022 Patient is seen and evaluated and followed this morning continues to be short of breath continues with cough being followed by cardiology. Patient did have elevated troponins recommending continuing IV heparin for an additional 24 hours. Patient was found to have positive blood cultures and maintained on c eftriaxone along with Zithromax and will repeat blood cultures. Most likely contaminant. Follow-up on cultures. Patient with significant weakness although reports he is mostly wheelchair bound and lives with family with support at home. 2-D echo is ordered and pending at this time. Patient is afebrile vital signs are stable and is 96% on room air. Cardiac medications have been resumed. Cardiology is following. 11/11/2022 Patient seen in follow-up ceftriaxone along with Zithromax being followed by boatswain's mate. Patient did have elevated troponins most likely due to current infection. Patient was initially to be discharged as repeat blood cultures are negative. Patient with weakness and family feels they are unable to care for him at home and will like to go to rehab. Will have PT/OT evaluate the patient and discuss with case management is patient will require insurance authori zation. Will initiate the process. Patient is currently afebrile denies chest pain or shortness of breath. Patient is maintaining saturations above 90% on room air. Patient reports not eating very well with not much of an appetite. Will add ensure supplements. Awaiting PT notes 11/12/2022 Patient is seen and evaluated in follow-up today currently up at the bedside commode working with physical therapy significantly weak recommending ECF and patient along with family are agreeable. Patient is afebrile maintained on IV ceftriaxone along with Zithromax for right lower lobe pneumonia. Patient is currently on room air and cardiology had been following the patient will follow as needed. Creatinine is 2.15 with history of chronic kidney disease and will follow-up with repeat labs. Encouraged increase activity as tolerated and recommend physical therapy daily. Patient needs encouragement with oral intake as he reports not much of an appetite. Patient reporting some feelings of co nstipation and will add milk of magnesia. Patient is currently denying any chest pain or shortness of breath and no reports of nausea or vomiting noted. Review of systems: Constitutional: No reports of fatigue, fever, or chills Cardiovascular: No reports of chest pain or palpitations Respiratory: reports of intermittent shortness of breath and cough GI: No reports of nausea, vomiting, or diarrhea, reports constipation : No reports of dysuria or retention Neurovascular: reports of increased weakness and patient reports he is wheelchair-bound PHYSICAL EXAMINATION: GENERAL: The patient is alert and oriented x3,. Well developed, well nourished. HEENT: Pupils are round and equally reacting to light. EOMI. No scleral icterus. No conjunctival pallor. Normocephalic, atraumatic. No pharyngeal erythema. No thyromegaly. CARDIOVASCULAR: S1 and S2 muffled PULMONARY: Diminished breath sounds bilaterally with ABDOMEN: Soft, nontender, nondistended, normoactive bowel sounds. No palpable o rganomegaly. MUSCULOSKELETAL: No joint swelling or deformity. EXTREMITIES: No cyanosis, clubbing, or pedal edema. NEUROLOGICAL: Gross neurological examination did not reveal any focal deficits. Diffusely weak SKIN: No rashes. Assessment: -Sepsis: Secondary to right lower lobe pneumonia patient will be continued on Rocephin and azithromycin -troponin elevation secondary to possibly type II myocardial infarction from sepsis with chronic elevation of troponin from chronic kidney disease. 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 and diabetic nephropathy -Diabetes mellitus, continue with sliding scale monitor blood sugars -Multivessel coronary artery disease continue with the his cardiac medication at time -Peripheral arterial disease -Hypertension -DVT prophylaxis: On anticoagulation sub q heparin -No code Plan: Recommend to continue on antibiotics in the form of ceftriaxone and Zithromax and will transition to oral to complete the course on discharge Cardiology following for elevated troponins likely type II mechanism due to pneumonia and has been transitioned to subcutaneous heparin Kidney functions elevated although stable and would recommend follow-up with nephrology outpatient Blood cultures showed diphtheroids series most likely contaminant Discharge planning in process patient has continued care feels she is unable to care for him as he has become significantly during hospitalization and would like to go to [facility]. Case management contacted and will obtain PT/OT therapy notes and will require insurance authorization. Apparently no beds available until early next week and will continue to monitor closely Prognosis is guarded The impression and plan of care has been dictated by Martha Maloney, Nurse Practitioner as directed. Dr. Mike MD I have performed a history and examination and MDM of this patient, discussed the same with the dictator, and agree with the dictator's assessment and plan as written ,documented as a scribe. Based on total visit time, I have performed more than 50% of the visit. Objective - Vital Signs Vital signs: Vital Signs Temp 98.7 F 11/12/22 08:00 Pulse 78 11/12/22 08:02 Resp 18 11/12/22 08:00 BP 211/89 11/12/22 08:00 Pulse Ox 99 11/12/22 08:00 FiO2 21 11/09/22 08:10 Intake & Output 11/11/22 11/12/22 11/12/22 18:59 06:59 18:59 Intake Total 526 Output Total 325 1100 200 Balance 201 -1100 -200 Weight 90.718 kg Intake: Oral 526 Output: Urine 325 1100 200 Other: Voiding Method Urinal Urinal Urinal Diaper Diaper # Voids 2 - Labs CBC & Chem 7: 11/11/22 08:07 11/12/22 07:01 Labs: Abnormal Lab Results - Last 24 Hours (Table) 11/11/22 11/11/22 11/12/22 Range/Units 16:50 20:09 07:01 Chloride 111 H (98-107) mmol/L Carbon Dioxide 19 L (22-30) mmol/L BUN 39 H (9-20) mg/dL Creatinine 2.15 H (0.66-1.25) mg/dL POC Glucose (mg/dL) 136 H 111 H (70-110) mg/dL Calcium 8.2 L (8.4-10.2) mg/dL 11/12/22 Range/Units 11:43 Chloride (98-107) mmol/L Carbon Dioxide (22-30) mmol/L BUN (9-20) mg/dL Creatinine (0.66-1.25) mg/dL POC Glucose (mg/dL) 189 H (70-110) mg/dL Calcium (8.4-10.2) mg/dL Microbiology - Last 24 Hours (Table) 11/10/22 12:34 Blood Culture - Preliminary Blood No Growth after 48 hours 11/08/22 22:00 Blood Culture - Preliminary Blood No Growth after 72 hours
[2022-11-12 16:11] LABS: Glucose,Whole Blood 213 mg/dL (70-110)
[2022-11-12 20:12] LABS: Glucose,Whole Blood 185 mg/dL (70-110)
[2022-11-12] MEDS: AZITHROMYCIN 500 MG in SODIUM CHLORIDE 0.9% 250 ML IVPB SCH (20:19)
[2022-11-12] MEDS: ATORVASTATIN 40 MG TAB PO SCH (20:20)
[2022-11-12] MEDS: TAMSULOSIN 0.4 MG CAP.ER.24H PO SCH (20:20)
[2022-11-13] MEDS: HEPARIN SODIUM,PORCINE/PF 5,000 UNIT/0.5 ML SYRINGE SQ SCH ×4 (01:21→22:58)
[2022-11-13 06:16] LABS: Glucose,Whole Blood 126 mg/dL (70-110)
[2022-11-13] MEDS: carvediloL 12.5 MG TAB PO SCH ×2 (06:19→17:13)
[2022-11-13] MEDS: INSULN ASP PRT/INSULIN ASPART 100 UNIT/ML 10 ML VIAL SQ SCH ×2 (08:43→17:14)
[2022-11-13] MEDS: SODIUM BICARBONATE TAB 650 MG TAB PO SCH ×2 (08:44→21:22)
[2022-11-13] MEDS: CHOLECALCIFEROL 125 MCG (5000 IU) TABLET PO SCH (08:44)
[2022-11-13] MEDS: cloNIDine HCL 0.2 MG TAB PO SCH ×3 (08:44→21:22)
[2022-11-13] MEDS: ISOSORBIDE MONONITRATE ER 60 MG TAB.ER.24H PO SCH (08:44)
[2022-11-13] MEDS: PRAZOSIN 1 MG CAP PO SCH ×3 (08:44→21:23)
[2022-11-13] MEDS: SENNOSIDES-DOCUSATE SODIUM 1 EACH TAB PO SCH (08:45)
[2022-11-13] MEDS: ASPIRIN 325 MG TAB PO SCH (08:45)
[2022-11-13] MEDS: hydrALAZINE HCL 50 MG TAB PO SCH ×3 (08:45→21:22)
[2022-11-13] MEDS: MULTIVITAMINS, THERA 1 EACH TAB PO SCH (08:45)
[2022-11-13 11:57] LABS: Glucose,Whole Blood 209 mg/dL (70-110)
[2022-11-13 17:11] LABS: Glucose,Whole Blood 235 mg/dL (70-110)
[2022-11-13 20:23] LABS: Glucose,Whole Blood 219 mg/dL (70-110)
[2022-11-13] MEDS: ATORVASTATIN 40 MG TAB PO SCH (21:22)
[2022-11-13] MEDS: TAMSULOSIN 0.4 MG CAP.ER.24H PO SCH (21:22)
[2022-11-14 06:00] LABS: Glucose,Whole Blood 133 mg/dL (70-110)
[2022-11-14] MEDS: carvediloL 12.5 MG TAB PO SCH ×2 (06:24→16:54)
[2022-11-14] MEDS: cloNIDine HCL 0.2 MG TAB PO SCH ×3 (07:39→19:55)
[2022-11-14] MEDS: MULTIVITAMINS, THERA 1 EACH TAB PO SCH (07:39)
[2022-11-14] MEDS: HEPARIN SODIUM,PORCINE/PF 5,000 UNIT/0.5 ML SYRINGE SQ SCH ×3 (07:39→22:41)
[2022-11-14] MEDS: ISOSORBIDE MONONITRATE ER 60 MG TAB.ER.24H PO SCH (07:39)
[2022-11-14] MEDS: CHOLECALCIFEROL 125 MCG (5000 IU) TABLET PO SCH (07:39)
[2022-11-14] MEDS: ASPIRIN 325 MG TAB PO SCH (07:39)
[2022-11-14] MEDS: SENNOSIDES-DOCUSATE SODIUM 1 EACH TAB PO SCH (07:39)
[2022-11-14] MEDS: hydrALAZINE HCL 50 MG TAB PO SCH ×3 (07:39→19:55)
[2022-11-14] MEDS: SODIUM BICARBONATE TAB 650 MG TAB PO SCH ×2 (07:39→19:55)
[2022-11-14] MEDS: PRAZOSIN 1 MG CAP PO SCH ×3 (07:40→19:55)
[2022-11-14] MEDS: INSULN ASP PRT/INSULIN ASPART 100 UNIT/ML 10 ML VIAL SQ SCH ×2 (07:40→16:54)
[2022-11-14 07:45] LABS: Basophils % (A) 0 %; Eosinophils # (A) 0.4 k/uL (0-0.7); Eosinophils % (A) 7 %; HCT 26.7 % (39.0-53.0); HGB 8.5 gm/dL (13.0-17.5); Hypochromasia Moderate; Lymphocytes # (A) 0.6 k/uL (1.0-4.8); Lymphocytes % (A) 11 %; MCHC 31.7 g/dL (31.0-37.0); MCV 85.1 fL (80.0-100.0); Mean Platelet Volume 10.8; Monocytes # (A) 0.3 k/uL (0-1.0); Monocytes % (A) 6 %; Neutrophils # (A) 3.9 k/uL (1.3-7.7); Neutrophils % (A) 74 %; Platelet Count 174 k/uL (150-450); RBC 3.14 m/uL (4.30-5.90); RDW 14.3 % (11.5-15.5); WBC 5.3 k/uL (3.8-10.6)
[2022-11-14 08:07] LABS: Albumin 2.8 g/dL (3.5-5.0); Potassium 4.8 mmol/L (3.5-5.1); Total Bilirubin 0.4 mg/dL (0.2-1.3); Total Protein 5.1 g/dL (6.3-8.2)
[2022-11-14 12:04] LABS: Glucose,Whole Blood 141 mg/dL (70-110)
[2022-11-14 17:04] LABS: Glucose,Whole Blood 156 mg/dL (70-110)
--- NOTE | 2022-11-14 18:18 | PN ---
PROGRESS NOTE DATE OF SERVICE: 11/13/2022 SUBJECTIVE: This is a 77-year-old gentleman, who was admitted with sepsis secondary to right lower lobe pneumonia and also extremely weak. No chest pain. No palpitations. No fever. OBJECTIVE: VITAL SIGNS: Pulse is 84, blood pressure is 136/63, respirations 14. CHEST: Few scattered rhonchi and crackles. ABDOMEN: Soft. NERVOUS SYSTEM: Nonfocal. LABORATORY DATA: Noted. ASSESSMENT: 1. Sepsis secondary to right lower lobe pneumonia. 2. Troponin elevation secondary to possibly type 2 myocardial infarction. 3. Chronic kidney disease, stage 4. 4. Diabetes mellitus, type 2. RECOMMENDATIONS: Recommend to continue current medications and symptomatic treatment. Otherwise, at this time, I recommend to continue the antibiotics and repeat labs. PT and OT evaluation. Possible ECF rehab. Guarded prognosis. Further recommendations to follow. HITESH / GABY: [id number] /
[2022-11-14] MEDS: ATORVASTATIN 40 MG TAB PO SCH (19:55)
[2022-11-14] MEDS: TAMSULOSIN 0.4 MG CAP.ER.24H PO SCH (19:55)
[2022-11-14 20:02] LABS: Glucose,Whole Blood 214 mg/dL (70-110)
--- NOTE | 2022-11-15 03:25 | PN ---
PROGRESS NOTE DATE OF SERVICE: 11/13/2022 SUBJECTIVE: This is a 77-year-old gentleman, who was admitted with right lower lobe pneumonia and sepsis, is being closely monitored. No chest pain. No palpitations. No fever. OBJECTIVE: VITAL SIGNS: Pulse is 70, blood pressure 130/47, respirations 18. CHEST: Few scattered rhonchi and crackles. CARDIOVASCULAR: S1, S2. ABDOMEN: Soft. NERVOUS SYSTEM: No focal deficit. LABORATORY DATA: Creatinine 2.13. ASSESSMENT: 1. Right lower lobe pneumonia with possible sepsis. 2. Troponin elevation. 3. Chronic kidney disease and diabetes mellitus, type 2. 4. Multiple medical issues. 5. Gait dysfunction. RECOMMENDATIONS: Recommend to continue current management and symptomatic treatment. PT and OT evaluation. Repeat labs tomorrow. Continue the rest of the medications. Prognosis guarded. Further recommendations to follow. HITESH / GABY: [id number] /
[2022-11-15 06:04] LABS: Glucose,Whole Blood 170 mg/dL (70-110)
[2022-11-15] MEDS: carvediloL 12.5 MG TAB PO SCH ×2 (06:53→17:04)
[2022-11-15] MEDS: INSULN ASP PRT/INSULIN ASPART 100 UNIT/ML 10 ML VIAL SQ SCH ×2 (06:54→17:04)
[2022-11-15 08:10] LABS: Basophils % (A) 1 %; Eosinophils # (A) 0.4 k/uL (0-0.7); Eosinophils % (A) 7 %; HCT 28.5 % (39.0-53.0); HGB 9.2 gm/dL (13.0-17.5); Hypochromasia Moderate; Lymphocytes # (A) 0.6 k/uL (1.0-4.8); Lymphocytes % (A) 11 %; MCH 27.5 pg (25.0-35.0); MCHC 32.2 g/dL (31.0-37.0); MCV 85.2 fL (80.0-100.0); Mean Platelet Volume 10.4; Monocytes # (A) 0.2 k/uL (0-1.0); Monocytes % (A) 5 %; Neutrophils % (A) 76 %; Platelet Count 198 k/uL (150-450); Poikilocytosis Slight; RBC 3.35 m/uL (4.30-5.90); RDW 14.5 % (11.5-15.5); WBC 5.3 k/uL (3.8-10.6)
[2022-11-15 08:22] LABS: Calcium 8.3 mg/dL (8.4-10.2); Potassium 4.7 mmol/L (3.5-5.1)
[2022-11-15] MEDS: cloNIDine HCL 0.2 MG TAB PO SCH ×2 (09:20→17:04)
[2022-11-15] MEDS: ISOSORBIDE MONONITRATE ER 60 MG TAB.ER.24H PO SCH (09:20)
[2022-11-15] MEDS: MULTIVITAMINS, THERA 1 EACH TAB PO SCH (09:20)
[2022-11-15] MEDS: hydrALAZINE HCL 50 MG TAB PO SCH ×2 (09:20→17:04)
[2022-11-15] MEDS: SENNOSIDES-DOCUSATE SODIUM 1 EACH TAB PO SCH (09:20)
[2022-11-15] MEDS: ASPIRIN 325 MG TAB PO SCH (09:20)
[2022-11-15] MEDS: SODIUM BICARBONATE TAB 650 MG TAB PO SCH (09:21)
[2022-11-15] MEDS: CHOLECALCIFEROL 125 MCG (5000 IU) TABLET PO SCH (09:21)
[2022-11-15] MEDS: HEPARIN SODIUM,PORCINE/PF 5,000 UNIT/0.5 ML SYRINGE SQ SCH ×2 (09:21→17:04)
[2022-11-15] MEDS: PRAZOSIN 1 MG CAP PO SCH ×2 (09:21→17:05)
[2022-11-15 09:38] VITALS: PULSE 73; RESP 18; TEMP 98.7
[2022-11-15 11:55] LABS: Glucose,Whole Blood 193 mg/dL (70-110)
[2022-11-15 16:15] LABS: Glucose,Whole Blood 249 mg/dL (70-110)
[2022-11-15 17:11] VITALS: BP 193/88
--- NOTE | 2022-11-16 15:00 | P.DS ---
Providers Date of admission: 11/09/22 00:52 Expected date of discharge: 11/15/22 Attending physician: Sharon Ray Primary care physician: Jack De Jesus Hospital Course: Final diagnosis -Sepsis: Secondary to right lower lobe pneumonia -troponin elevation secondary to type II myocardial infarction from sepsis with chronic elevation of troponin from chronic kidney disease. 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 and diabetic nephropathy -Diabetes mellitus -Multivessel coronary artery disease -Peripheral arterial disease -Hypertension -DVT prophylaxis -No code Discharge disposition Patient is being discharged in a stable condition with guarded prognosis to [facility]. Patient will follow-up with Dr. Rocha in the outpatient setting upon discharge. Patient is to follow-up outpatient with pulmonary and nephrology as scheduled. Patient will continue on oral Ceftin to complete the course and recommend repeat CBC/BMP in the next 2-3 days Total time taken is greater than 35 minutes. Hospital course This is a 77-year-old male who was recently admitted with shortness of breath weakness and fevers and found to have pneumonia. Patient was treated and maintained on IV antibiotics and also evaluated by cardiology due to elevation in troponins, likely type II myocardial infarction due to any disease and pneumonia. Patient will need outpatient follow-up with repeat labs to monitor kidney functions and recommend nephrology consultation in the next 1-2 weeks. Patient to continue monitoring blood sugars and continue with current regimen as mentioned below. Patient has been cleared by consultations and will be discharged to [facility] is patient is significantly weak and unable to care for him at home. Patient has received insurance authorization and will go to [facility] today. Currently no reports of chest pain, shortness of breath, or palpitations. Patient is afebrile. No reports of nausea or vomiting and patient is tolerating diet. Patient will be going to [facility] today. Guarded prognosis. Physical exam: Gen: This is a 77-year-old male awake, alert and oriented 3, well-developed, well-nourished. HEENT: Head is atraumatic, normocephalic. Pupils equal, round. Sclerae is anicteric. NECK: Supple. No JVD. No lymphadenopathy. No thyromegaly. LUNGS: Clear to auscultation. No wheezes or rhonchi. No intercostal retractions. HEART: Regular rate and rhythm. No murmur. ABDOMEN: Soft. Bowel sounds are present. No masses. No tenderness. EXTREMITIES: No pedal edema. No calf tenderness. Wheelchair-bound with extensive weakness NEUROLOGICAL: Patient is awake, alert and oriented x3. Cranial nerves 2 through 12 are grossly intact. Diffusely weak Please refer to medication reconciliation sheet for a list of medications. The impression and plan of care has been dictated by Martha Maloney, Nurse Practitioner as directed. Dr. Mike MD I have performed a history and examination and MDM of this patient, discussed the same with the dictator, and agree with the dictator's assessment and plan as written ,documented as a scribe. Based on total visit time, I have performed more than 50% of the visit. Patient Condition at Discharge: Fair Plan - Discharge Summary Discharge Rx Participant: No New Discharge Prescriptions: New Azithromycin [Zithromax] 500 mg PO DAILY 4 Days #4 tab cefUROXime axetiL [Ceftin] 500 mg PO BID 4 Days #8 tab Acetaminophen Tab [Tylenol] 650 mg PO Q4HR PRN tab PRN Reason: Fever And/ Or Pain Magnesium Hydroxide [Milk of Magnesia Concentrate] 2,400 mg PO ONCE PRN ml PRN Reason: Constipation Continue Sennosides-Docusate Sodium [Senokot-S] 1 tab PO DAILY@0800 hydrALAZINE HCL [Apresoline] 100 mg PO TID@0800,1500,2200 Multivitamin/Iron/Folic Acid [Centrum Complete Multivit Tab] 1 tab PO DAILY@0800 Aspirin EC [Ecotrin Low Dose] 81 mg PO DAILY@0800 Prazosin HCl 4 mg PO TID@0800,1500,2200 Apixaban [Eliquis] 5 mg PO BID@0800,2000 Atorvastatin [Lipitor] 40 mg PO HS@2200 Cholecalciferol (Vitamin D3) [Vitamin D3 (125 MCG = 5,000 IU)] 125 mcg PO DAILY@0800 cloNIDine HCL [Catapres] 0.2 mg PO TID@0800,1500,2200 Isosorbide Mononitrate ER [Imdur] 60 mg PO DAILY@0800 Tamsulosin [Flomax] 0.4 mg PO HS@2200 Insulin NPH Hum/Reg Insulin Hm [humuLIN 70/30 Kwikpen] 35 units SQ W/BRKFST carvediloL [Coreg] 25 mg PO BID@799,1999 Sodium Bicarbonate Tab 650 mg PO BID Insulin NPH Hum/Reg Insulin Hm [humuLIN 70/30 Kwikpen] 27 unit SQ W/SUPPER Discharge Medication List Aspirin EC [Ecotrin Low Dose] 81 mg PO DAILY@79906/18/19 [History] Multivitamin/Iron/Folic Acid [Centrum Complete Multivit Tab] 1 tab PO DAILY@79906/18/19 [History] Sennosides-Docusate Sodium [Senokot-S] 1 tab PO DAILY@79906/18/19 [History] hydrALAZINE HCL [Apresoline] 100 mg PO TID@0800,1500,219906/18/19 [History] Prazosin HCl 4 mg PO TID@0800,1500,22009/05/19 [History] Apixaban [Eliquis] 5 mg PO BID@799,199903/04/21 [History] Atorvastatin [Lipitor] 40 mg PO HS@219901/27/22 [History] Cholecalciferol (Vitamin D3) [Vitamin D3 (125 MCG = 5,000 IU)] 125 mcg PO DAILY@79901/27/22 [History] Isosorbide Mononitrate ER [Imdur] 60 mg PO DAILY@79901/27/22 [History] Tamsulosin [Flomax] 0.4 mg PO HS@219901/27/22 [History] carvediloL [Coreg] 25 mg PO BID@799,199901/27/22 [History] cloNIDine HCL [Catapres] 0.2 mg PO TID@0800,1500,219901/27/22 [History] Insulin NPH Hum/Reg Insulin Hm [humuLIN 70/30 Kwikpen] 27 unit SQ W/SUPPER 11/09/22 [History] Insulin NPH Hum/Reg Insulin Hm [humuLIN 70/30 Kwikpen] 35 units SQ W/BRKFST 11/09/22 [History] Sodium Bicarbonate Tab 650 mg PO BID 11/09/22 [History] Acetaminophen Tab [Tylenol] 650 mg PO Q4HR PRN tab 11/11/22 [Rx] Azithromycin [Zithromax] 500 mg PO DAILY 4 Days #4 tab 11/11/22 [Rx] cefUROXime axetiL [Ceftin] 500 mg PO BID 4 Days #8 tab 11/11/22 [Rx] Magnesium Hydroxide [Milk of Magnesia Concentrate] 2,400 mg PO ONCE PRN ml 11/15/22 [Rx] Follow up Appointment(s)/Referral(s): Jack De Jesus MD [Primary Care Provider] - 1 Week Davon Rocha MD [STAFF PHYSICIAN] - 1 Week Ambulatory/Diagnostic Orders: Basic Metabolic Panel [LAB.AMB] Time Frame: 3 Days, Location: None Selected Activity/Diet/Wound Care/Special Instructions: Patient is going to [facility] Activity as tolerated Continue taking antibiotics until finished Follow-up with primary care provider outpatient Follow-up pulmonary outpatient Follow-up cardiology outpatient Follow-up nephrology outpatient Continue current diet Recommend repeat labs in 2-3 days Discharge Disposition: TRANSFER TO SNF/ECF
== END 2022-11-15 18:30 | DRG 871 ==
LOC: EC 21:41 → 3SCARD 11-09 00:52
PROVIDERS: ADMIT Internal Medicine; ATTEND Internal Medicine
DX: A41.9 Sepsis, unspecified organism (principal); I21.A1 Myocardial infarction type 2; J18.9 Pneumonia, unspecified organism; I13.0 Hypertensive heart and chronic kidney disease with heart failure and stage 1 through stage 4 chronic kidney disease, or unspecified chronic kidney disease; N18.4 Chronic kidney disease, stage 4 (severe); N17.9 Acute kidney failure, unspecified; E11.22 Type 2 diabetes mellitus with diabetic chronic kidney disease; I50.9 Heart failure, unspecified; D63.1 Anemia in chronic kidney disease; Z79.4 Long term (current) use of insulin; E11.51 Type 2 diabetes mellitus with diabetic peripheral angiopathy without gangrene; E78.5 Hyperlipidemia, unspecified; I25.10 Atherosclerotic heart disease of native coronary artery without angina pectoris; I25.2 Old myocardial infarction; K59.00 Constipation, unspecified; T50.2X5A Adverse effect of carbonic-anhydrase inhibitors, benzothiadiazides and other diuretics, initial encounter; Z91.81 History of falling; Z20.822 Contact with and (suspected) exposure to COVID-19; Z66 Do not resuscitate; Z79.01 Long term (current) use of anticoagulants; Z79.82 Long term (current) use of aspirin; Z79.899 Other long term (current) drug therapy; Z82.49 Family history of ischemic heart disease and other diseases of the circulatory system; Z86.711 Personal history of pulmonary embolism; Z89.412 Acquired absence of left great toe; Z89.422 Acquired absence of other left toe(s); Z89.421 Acquired absence of other right toe(s); Z28.311 Partially vaccinated for COVID-19; Z99.3 Dependence on wheelchair; Z86.14 Personal history of Methicillin resistant Staphylococcus aureus infection; Z88.1 Allergy status to other antibiotic agents; Z88.8 Allergy status to other drugs, medicaments and biological substances
CPT/HCPCS: 36415; 71045; 80048; 80053; 80061; 81001; 83605; 83735; 84145; 84484; 85025; 85027; 85610; 85730; 87040; 87635; 87636; 93005; 93306; 94640; 94760; 96361; 96365; 96366; 96367; 96368; 96375; 99285

== ENCOUNTER 2023-02-07 19:52 | Inpatient (IN) | payer MEDICARE ==
[2023-02-07] MEDS ORDERED: FUROSEMIDE 10 MG/ML 4 ML VIAL IV STA (20:05)
[2023-02-07 20:55] LABS: Anisocytosis Slight; Basophils % (A) 0 %; Eosinophils # (A) 0.3 k/uL (0-0.7); Eosinophils % (A) 7 %; HCT 26.7 % (39.0-53.0); HGB 8.6 gm/dL (13.0-17.5); Hypochromasia Moderate; Lymphocytes # (A) 0.3 k/uL (1.0-4.8); Lymphocytes % (A) 6 %; MCH 24.8 pg (25.0-35.0); MCHC 32.1 g/dL (31.0-37.0); MCV 77.4 fL (80.0-100.0); Mean Platelet Volume 8.7; Microcytosis Slight; Monocytes # (A) 0.3 k/uL (0-1.0); Monocytes % (A) 6 %; Neutrophils % (A) 79 %; Platelet Count 191 k/uL (150-450); RBC 3.45 m/uL (4.30-5.90); RDW 16.4 % (11.5-15.5); WBC 5.1 k/uL (3.8-10.6)
[2023-02-07 21:03] LABS: Partial Thromboplastin Time 29.2 sec (22.0-30.0); Prothrombin Time 10.7 sec (9.0-12.0)
[2023-02-07 21:06] LABS: Albumin 3.7 g/dL (3.5-5.0); Calcium 9.2 mg/dL (8.4-10.2); Potassium 4.3 mmol/L (3.5-5.1); Total Bilirubin 0.4 mg/dL (0.2-1.3); Total Protein 6.1 g/dL (6.3-8.2)
--- NOTE | 2023-02-07 21:09 | ED ---
General Adult HPI - General Chief complaint: Extremity Injury, Lower Stated complaint: Leg Swelling, Weakness Time Seen by Provider: 02/07/23 19:59 Source: patient Mode of arrival: EMS Limitations: physical limitation - History of Present Illness Initial comments: This 77-year-old male presents with complaint of some swelling. He states that it seems worse in his right leg and abdominal region. He does have a history of congestive heart failure and states that this will oftentimes happen. He also complains of some swelling to his left arm and left leg stump. He denies any fevers or chills. There is no chest pain or shortness of breath. He states that he has had approximately 50 pound weight gain over the past couple of months. He denies taking any Lasix or other diuretics at home. No other complaints or modifying factors. Symptoms have been progressively worsening over weeks. - Related Data Home Medications Medication Instructions Recorded Confirmed Aspirin EC [Ecotrin Low Dose] 81 mg PO DAILY@89906/18/19 02/07/23 Multivitamin/Iron/Folic Acid 1 tab PO DAILY@89906/18/19 02/07/23 [Centrum Complete Multivit Tab] Sennosides-Docusate Sodium 1 tab PO DAILY@89906/18/19 02/07/23 [Senokot-S] hydrALAZINE HCL [Apresoline] 100 mg PO TID@0900,1500,222906/18/19 02/07/23 Prazosin HCl 4 mg PO TID@0900,1500,0 09/05/19 02/07/23 Apixaban [Eliquis] 5 mg PO BID@899,199903/04/21 02/07/23 Atorvastatin [Lipitor] 40 mg PO HS@222901/27/22 02/07/23 Cholecalciferol (Vitamin D3) 125 mcg PO DAILY@89901/27/22 02/07/23 [Vitamin D3 (125 MCG = 5,000 IU)] Isosorbide Mononitrate ER [Imdur] 60 mg PO DAILY@89901/27/22 02/07/23 Tamsulosin [Flomax] 0.4 mg PO DAILY@199901/27/22 02/07/23 carvediloL [Coreg] 25 mg PO BID@899,199901/27/22 02/07/23 Insulin NPH Hum/Reg Insulin Hm 20 units SQ BID-W/MEALS 11/09/22 02/07/23 [humuLIN 70/30 Kwikpen] Sodium Bicarbonate Tab 650 mg PO BID@0900,199911/09/22 02/07/23 calcitrioL [Calcitriol] 0.5 mcg PO MOWEFR@0900 12/23/22 02/07/23 Insulin Aspart [NovoLOG Flexpen] 10 units SQ TID-W/MEALS 02/07/23 02/07/23 Insulin Aspart [NovoLOG Flexpen] See Protocol SQ TID-W/MEALS PRN 02/07/23 02/07/23 cloNIDine HCL [Catapres] 0.3 mg PO TID@0900,1500,2230 02/07/23 02/07/23 Allergies Allergy/AdvReac Type Severity Reaction Status Date / Time amlodipine Allergy Anaphylaxis Verified 02/07/23 21:58 lisinopril Allergy tongue Verified 02/07/23 21:58 swelling vancomycin Allergy seizure Verified 02/07/23 21:58 like activity Review of Systems ROS Statement: Those systems with pertinent positive or pertinent negative responses have been documented in the HPI. ROS Other: All systems not noted in ROS Statement are negative. Past Medical History Past Medical History: Heart Failure, Diabetes Mellitus, Deep Vein Thrombosis (DVT), Hyperlipidemia, Hypertension, Syncope Additional Past Medical History / Comment(s): other hx:per pt's "xray noted lung nodules". 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, L foot gr toe, 3rd &2nd toe amputated; Rfoot 3rd toe amputated, Bypass in Bilat legs, eulogio knee sx(cartilage), lt arm picc line.since removed, x3 sx total facial plastic sx and grafting done area under lt eye d/t injury, Ackerman placement.-rt upper chest/removed Past Anesthesia/Blood Transfusion Reactions: Postoperative Nausea & Vomiting (PONV) Additional Past Anesthesia/Blood Transfusion Reaction / Comment(s): never recieved blood Past Psychological History: No Psychological Hx Reported Additional Psychological History / Comment(s): Patient is and lives at home with his . There are no pets in the home. No service. Patient has lived in [facility]. 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 Patient is moved to this area to be close to his children. No significant history of alcohol or recreational drug use. No international travel. No animal exposures. Smoking Status: Never smoker Past Alcohol Use History: None Reported Additional Past Alcohol Use History / Comment(s): Patient is and lives at home with his . There are no pets in the home. No service. Patient has lived in [facility]. 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 Patient is moved to this area to be close to his children. No significant history of alcohol or recreational drug use. No international travel. No animal exposures. Past Drug Use History: None Reported - Past Family History Father Family Medical History: Deep Vein Thrombosis (DVT) Additional Family Medical History / Comment(s): had valve sx- a week later from complications Mother Family Medical History: Congestive Heart Failure (CHF) Additional Family Medical History / Comment(s): phlebitis General Exam - General Exam Comments Initial Comments: GENERAL: The patient is well nourished and well hydrated. VITAL SIGNS: Heart rate, blood pressure, respiratory rate reviewed as recorded in nurse's notes. EYES: Pupils are round and reactive. Extraocular movements are intact. No conjunctival / lid redness or swelling. ENT: No external evidence of injury, swelling, or ecchymosis. Airway is patent. Throat is clear. NECK: Nontender. No swelling or evidence of injury. No subcutaneous emphysema. Trachea is midline. No thyroid mass. HEART: Regular rate and rhythm. Good peripheral pulses. LUNGS/CHEST: Breath sounds clear and equal bilaterally. No rales, rhonchi, or wheezes. No ecchymosis, subcutaneous emphysema, or tenderness. ABDOMEN: Abdomen soft without tenderness. No palpable masses or organomegaly. No peritoneal signs. No abdominal wall swelling or ecchymosis. There is mild abdominal distention. EXTREMITIES: No extremity tenderness. Normal muscle tone and function. No thoracolumbar tenderness. There is some moderate edema noted to the right lower extremity. No swelling of the upper extremities appreciated. The patient does have a left [id number] amputation. NEUROLOGIC: Sensation is grossly intact. Cranial nerve exam reveals face is symmetrical, tongue is midline, speech is clear. SKIN: No abrasions or ecchymosis is noted. No induration or masses noted. Occasional minimal abrasions noted to the anterior right lower extremity. PSYCHIATRIC: Alert and oriented. Appropriate behavior and judgment. Limitations: physical limitation Course Vital Signs 02/07/23 02/07/23 19:53 21:32 Temperature 97.8 F Pulse Rate 91 92 Respiratory 18 17 Rate Blood Pressure 156/72 156/72 O2 Sat by Pulse 99 98 Oximetry Medical Decision Making - Medical Decision Making Was pt. sent in by a medical professional or institution (, PA, DIALYSIS SOCIAL WORKER, urgent care, hospital, or usp...) When possible be specific @ -The patient relates that his doctor told him to come to the emergency department. Did you speak to anyone other than the patient for history (EMS, parent, family, police, friend...)? What history was obtained from this source @ -Did you review nursing and triage notes (agree or disagree)? Why? @ -[I reviewed and agree with nursing and triage notes] Were old charts reviewed (outside hosp., previous admission, EMS record, old EKG, old radiological studies, urgent care reports/EKG's, usp records)? Report findings @ -Old records were reviewed and additional past medical history is obtained. It appears as though he was just admitted with similar approximately one month ago. Differential Diagnosis (chest pain, altered mental status, abdominal pain women, abdominal pain men, vaginal bleeding, weakness, fever, dyspnea, syncope, headache, dizziness, GI bleed, back pain, seizure, CVA, palpatations, mental health, musculoskeletal)? @ -Congestive heart failure, lower extremity edema, abdominal distention, anemia, chronic kidney disease EKG interpreted by me (3pts min.). @ -EKG is interpreted by myself. This shows a normal sinus rhythm at a rate of 85. There is some multiple ST-T wave changes noted in the inferior and lateral leads. The QRS duration is prolonged and he likely does have early left bundle branch block. The QTC is 454 and ID interval is 220. X-rays interpreted by me (1pt min.). @ -The chest x-ray as interpreted by myself and does not show any acute abnormalities. CT interpreted by me (1pt min.). @ -[None done] U/S interpreted by me (1pt. min.). @ -[None done] What testing was considered but not performed or refused? (CT, X-rays, U/S, labs)? Why? @ -Upon admitting patient, internal medicine and is requesting a lower extre mity venous Doppler and this is ordered and is pending. What meds were considered but not given or refused? Why? @ -[None] Did you discuss the management of the patient with other professionals (professionals i.e. , PA, DIALYSIS SOCIAL WORKER, lab, RT, psych nurse, school social worker, security sales manager, teacher, field artillery officer, case managers)? Give summary @ -Case is discussed with internal medicine and they are agreeable with admission. Was smoking cessation discussed for >3mins.? @ -[No] Was critical care preformed (if so, how long)? @ -[No] Were there social determinants of health that impacted care today? How? (Homelessness, low income, unemployed, alcoholism, drug addiction, transportation, low edu. Level, literacy, decrease access to med. care, half-way, rehab)? @ -[No] Was there de-escalation of care discussed even if they declined (Discuss DNR or withdrawal of care, Hospice)? DNR status @ -[No] What co-morbidities impacted this encounter? (DM, HTN, Smoking, COPD, CAD, C ancer, CVA, ARF, Chemo, Hep., AIDS, mental health diagnosis, sleep apnea, morbid obesity)? @ -Congestive heart failure, left lower extremity above-knee amputation Was patient admitted / discharged? Hospital course, mention meds given and route, prescriptions, significant lab abnormalities, going to OR and other pertinent info. @ -The patient was seen and examined. The patient is placed on the monitor car operator and no ectopy is identified. IV is established and he does receive Lasix intravenously. Laboratory does show stable chronic renal failure. He also has stable anemia with hemoglobin of 8. Troponin is negative. It is felt as though he likely does have a degree of congestive heart failure and would require admission once again. Both patient and are agreeable Undiagnosed new problem with uncertain prognosis? @ -[No] Drug Therapy requiring intensive monitoring for toxicity (Heparin, Nitro, Insulin, Cardizem)? @ -[No] Were any procedures done? @ -[No] Diagnosis/symptom? @ -Lower extremity edema, abdominal distention, weight gain, congestive heart failure Acute, or Chronic, or Acute on Chronic? @ -Acute on chronic Uncomplicated (without systemic symptoms) or Complicated (systemic symptoms)? @ -Uncomplicated Side effects of treatment? @ -[No] Exacerbation, Progression, or Severe Exacerbation? @ -[No] Poses a threat to life or bodily function? How? (Chest pain, USA, NV, pneumonia, PE, COPD, DKA, ARF, appy, cholecystitis, CVA, Diverticulitis, Homicidal, Suicidal, threat to staff... and all critical care pts) @ -Congestive heart failure is potentially a threat to life. - Lab Data Result diagrams: 02/07/23 20:05 02/07/23 20:05 Lab Results 02/07/23 02/07/23 02/07/23 Range/Units 20:05 20:05 20:05 WBC 5.1 (3.8-10.6) k/uL RBC 3.45 L (4.30-5.90) m/uL Hgb 8.6 L (13.0-17.5) gm/dL Hct 26.7 L (39.0-53.0) % MCV 77.4 L (80.0-100.0) fL MCH 24.8 L (25.0-35.0) pg MCHC 32.1 (31.0-37.0) g/dL RDW 16.4 H (11.5-15.5) % Plt Count 191 (150-450) k/uL MPV 8.7 Neutrophils % 79 % Lymphocytes % 6 % Monocytes % 6 % Eosinophils % 7 % Basophils % 0 % Neutrophils # 4.0 (1.3-7.7) k/uL Lymphocytes # 0.3 L (1.0-4.8) k/uL Monocytes # 0.3 (0-1.0) k/uL Eosinophils # 0.3 (0-0.7) k/uL Basophils # 0.0 (0-0.2) k/uL Hypochromasia Moderate Anisocytosis Slight Microcytosis Slight PT 10.7 (9.0-12.0) sec INR 1.0 (<1.2) APTT 29.2 (22.0-30.0) sec Sodium 140 (137-145) mmol/L Potassium 4.3 (3.5-5.1) mmol/L Chloride 106 (98-107) mmol/L Carbon Dioxide 24 (22-30) mmol/L Anion Gap 10 mmol/L BUN 43 H (9-20) mg/dL Creatinine 2.27 H (0.66-1.25) mg/dL Est GFR (CKD-EPI)AfAm 31 (>60 ml/min/1.73 sqM) Est GFR (CKD-EPI)NonAf 27 (>60 ml/min/1.73 sqM) Glucose 168 H (74-99) mg/dL Calcium 9.2 (8.4-10.2) mg/dL Total Bilirubin 0.4 (0.2-1.3) mg/dL AST 26 (17-59) U/L ALT 36 (4-49) U/L Alkaline Phosphatase 95 (38-126) U/L Troponin I (0.000-0.034) ng/mL Total Protein 6.1 L (6.3-8.2) g/dL Albumin 3.7 (3.5-5.0) g/dL 02/07/23 Range/Units 20:05 WBC (3.8-10.6) k/uL RBC (4.30-5.90) m/uL Hgb (13.0-17.5) gm/dL Hct (39.0-53.0) % MCV (80.0-100.0) fL MCH (25.0-35.0) pg MCHC (31.0-37.0) g/dL RDW (11.5-15.5) % Plt Count (150-450) k/uL MPV Neutrophils % % Lymphocytes % % Monocytes % % Eosinophils % % Basophils % % Neutrophils # (1.3-7.7) k/uL Lymphocytes # (1.0-4.8) k/uL Monocytes # (0-1.0) k/uL Eosinophils # (0-0.7) k/uL Basophils # (0-0.2) k/uL Hypochromasia Anisocytosis Microcytosis PT (9.0-12.0) sec INR (<1.2) APTT (22.0-30.0) sec Sodium (137-145) mmol/L Potassium (3.5-5.1) mmol/L Chloride (98-107) mmol/L Carbon Dioxide (22-30) mmol/L Anion Gap mmol/L BUN (9-20) mg/dL Creatinine (0.66-1.25) mg/dL Est GFR (CKD-EPI)AfAm (>60 ml/min/1.73 sqM) Est GFR (CKD-EPI)NonAf (>60 ml/min/1.73 sqM) Glucose (74-99) mg/dL Calcium (8.4-10.2) mg/dL Total Bilirubin (0.2-1.3) mg/dL AST (17-59) U/L ALT (4-49) U/L Alkaline Phosphatase (38-126) U/L Troponin I 0.033 (0.000-0.034) ng/mL Total Protein (6.3-8.2) g/dL Albumin (3.5-5.0) g/dL Disposition Clinical Impression: Edema, Congestive heart failure, Hypertension, CKD (chronic kidney disease), Anemia Disposition: ADMITTED IP TO THIS HOSP Condition: Fair Referrals: Jack De Jesus MD [Primary Care Provider] - 1-2 days Time of Disposition: 22:13 Decision Date: 02/07/23 Decision Time: 22:13
--- NOTE | 2023-02-07 21:34 | XR ---
EXAMINATION TYPE: XR chest 2V DATE OF EXAM: 02/07/2023 9:23 PM COMPARISON: Chest radiographs from 12/23/2022 TECHNIQUE: XR chest 2V Frontal and lateral views of the chest. CLINICAL INDICATION:Male, 77 years old with history of difficulty breathing; FINDINGS: Lungs/Pleura: There is no evidence of pleural effusion, focal consolidation, or pneumothorax. Opaci ties over the spine on lateral view are unchanged Pulmonary vascularity: Unremarkable. Heart/mediastinum: Cardiomediastinal silhouette is unremarkable. Musculoskeletal: No acute osseous pathology. IMPRESSION: No significant changes prior.
[2023-02-07] MEDS ORDERED: NALOXONE 0.4 MG/ML 1 ML VIAL IV PRN (23:18)
[2023-02-07] MEDS ORDERED: ACETAMINOPHEN TAB 325 MG TAB PO PRN (23:18)
[2023-02-07] MEDS ORDERED: DEXTROSE 50% SYRINGE 50 ML IVP PRN ×2 (23:22)
--- NOTE | 2023-02-08 00:11 | US ---
EXAMINATION TYPE: US venous doppler duplex LE RT DATE OF EXAM: 02/07/2023 11:51 PM COMPARISON: NONE CLINICAL HISTORY: swelling. Swelling in right leg. Hx of DVT (unsure which leg). On Eloquis SIDE PERFORMED: Right TECHNIQUE: The lower extremity deep venous system is examined utilizing real time linear array sonog korey with graded compression, doppler sonography and color-flow sonography. VESSELS IMAGED: Common Femoral Vein Deep Femoral Vein Greater Saphenous Vein * Femoral Vein Popliteal Vein Small Saphenous Vein * Proximal Calf Veins (* superficial vessels) Right Leg: There is thrombus seen from prox/mid femoral vein down through the popliteal vein. No silver w visualized throughout the thrombus. Edema noted behind knee. Calf veins not well visualized due to edema IMPRESSION: There is extensive edema. There is evidence of acute deep vein thrombosis in the right le g involving the mid and distal femoral vein and the popliteal vein.
[2023-02-08 06:13] LABS: Glucose,Whole Blood 201 mg/dL (70-110)
[2023-02-08] MEDS: INSULN ASP PRT/INSULIN ASPART 100 UNIT/ML 10 ML VIAL SQ SCH ×2 (06:36→17:25)
[2023-02-08] MEDS: INSULIN ASPART (NovoLOG) 100 UNIT/ML VIAL SQ SCH ×4 (06:37→20:10)
[2023-02-08] MEDS ORDERED: FUROSEMIDE 10 MG/ML 2 ML VIAL IV SCH (09:00)
[2023-02-08] MEDS ORDERED: ASPIRIN 81 MG PO SCH (09:00)
[2023-02-08] MEDS: SENNOSIDES-DOCUSATE SODIUM 1 EACH TAB PO SCH (10:28)
[2023-02-08] MEDS: ISOSORBIDE MONONITRATE ER 60 MG TAB.ER.24H PO SCH (10:28)
[2023-02-08] MEDS: carvediloL 12.5 MG TAB PO SCH ×2 (10:28→20:14)
[2023-02-08] MEDS: cloNIDine HCL 0.1 MG TAB PO SCH ×3 (10:28→22:50)
[2023-02-08] MEDS: SODIUM BICARBONATE TAB 650 MG TAB PO SCH ×2 (10:28→20:14)
[2023-02-08] MEDS: hydrALAZINE HCL 50 MG TAB PO SCH ×3 (10:28→22:50)
[2023-02-08] MEDS: MULTIVITAMINS, THERA 1 EACH TAB PO SCH (10:28)
[2023-02-08] MEDS: CHOLECALCIFEROL 125 MCG (5000 IU) TABLET PO SCH (10:28)
[2023-02-08] MEDS: APIXABAN 5 MG TAB PO SCH ×2 (10:29→20:14)
--- NOTE | 2023-02-08 10:29 | P.NPCON ---
History of Present Illness - Reason for Consult acute renal failure, chronic renal failure - History of Present Illness Reason for consultation: Acute kidney injury on chronic kidney disease History of present illness: Patient is a 77-year-old male seen in renal consultation for acute kidney injury on chronic kidney disease. Patient has chronic kidney disease stage IIIB with baseline creatinine near 2 secondary to diabetic kidney disease and nephrosclerosis. Creatinine on admission was 2.27. Patient presented to the hospital due to edema in his right lower extremity. He is currently on IV Lasix. He denies history of coronary artery disease. He does a long-standing history of diabetes. Oral intake has been fair. No vomiting or diarrhea. Denies hematuria or dysuria. No fever or chills. I don't see any diuretics and his home medication list. No acute changes noted on a chest x-ray. Doppler showed evidence of right lower extremity DVT. He is on anticoagulation. Vital signs are stable. General: No acute distress. HEENT: Head exam is unremarkable. LUNGS: No audible rhonchi or wheezes. HEART: Rate and Rhythm are regular. ABDOMEN: Soft, no distention. EXTREMITITES: Left AKA. 1+ edema right lower extremity. Past Medical History Past Medical History: Heart Failure, Diabetes Mellitus, Deep Vein Thrombosis (DVT), Hyperlipidemia, Hypertension, Syncope Additional Past Medical History / Comment(s): other hx:per pt's "xray noted lung nodules". 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, L foot gr toe, 3rd &2nd toe amputated; Rfoot 3rd toe amputated, Bypass in Bilat legs, eulogio knee sx(cartilage), lt arm picc line.since removed, x3 sx total facial plastic sx and grafting done area under lt eye d/t injury, Ackerman placement.-rt upper chest/removed Past Anesthesia/Blood Transfusion Reactions: Postoperative Nausea & Vomiting (PONV) Additional Past Anesthesia/Blood Transfusion Reaction / Comment(s): never recieved blood Past Psychological History: No Psychological Hx Reported Additional Psychological History / Comment(s): Patient is and lives at home with his . There are no pets in the home. No service. Patient has lived in [facility]. 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 Patient is moved to this area to be close to his children. No significant history of alcohol or recreational drug use. No international travel. No animal exposures. Smoking Status: Never smoker Past Alcohol Use History: None Reported Additional Past Alcohol Use History / Comment(s): Patient is and lives at home with his . There are no pets in the home. No service. Patient has lived in [facility]. 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 Patient is moved to this area to be close to his children. No significant history of alcohol or recreational drug use. No international travel. No animal exposures. Past Drug Use History: None Reported - Past Family History Father Family Medical History: Deep Vein Thrombosis (DVT) Additional Family Medical History / Comment(s): had valve sx- a week later from complications Mother Family Medical History: Congestive Heart Failure (CHF) Additional Family Medical History / Comment(s): phlebitis Medications and Allergies Home Medications Medication Instructions Recorded Confirmed Type Aspirin EC [Ecotrin Low Dose] 81 mg PO DAILY@0906/18/19 02/07/23 History Multivitamin/Iron/Folic Acid 1 tab PO DAILY@89906/18/19 02/07/23 History [Centrum Complete Multivit Tab] Sennosides-Docusate Sodium 1 tab PO DAILY@89906/18/19 02/07/23 History [Senokot-S] hydrALAZINE HCL [Apresoline] 100 mg PO TID@0900,1500,2230 06/18/19 02/07/23 History Prazosin HCl 4 mg PO TID@0900,1500,222909/05/19 02/07/23 History Apixaban [Eliquis] 5 mg PO BID@899,199903/04/21 02/07/23 History Atorvastatin [Lipitor] 40 mg PO HS@222901/27/22 02/07/23 History Cholecalciferol (Vitamin D3) 125 mcg PO DAILY@89901/27/22 02/07/23 History [Vitamin D3 (125 MCG = 5,000 IU)] Isosorbide Mononitrate ER [Imdur] 60 mg PO DAILY@89901/27/22 02/07/23 History Tamsulosin [Flomax] 0.4 mg PO DAILY@199901/27/22 02/07/23 History carvediloL [Coreg] 25 mg PO BID@899,199901/27/22 02/07/23 History Insulin NPH Hum/Reg Insulin Hm 20 units SQ BID-W/MEALS 11/09/22 02/07/23 History [humuLIN 70/30 Kwikpen] Sodium Bicarbonate Tab 650 mg PO BID@899,199911/09/22 02/07/23 History calcitrioL [Calcitriol] 0.5 mcg PO MOWEFR@89912/23/22 02/07/23 History Insulin Aspart [NovoLOG Flexpen] 10 units SQ TID-W/MEALS 02/07/23 02/07/23 History Insulin Aspart [NovoLOG Flexpen] See Protocol SQ TID-W/MEALS PRN 02/07/23 02/07/23 History cloNIDine HCL [Catapres] 0.3 mg PO TID@0900,1500,222902/07/23 02/07/23 History Allergies Allergy/AdvReac Type Severity Reaction Status Date / Time amlodipine Allergy Anaphylaxis Verified 02/07/23 21:58 lisinopril Allergy tongue Verified 02/07/23 21:58 swelling vancomycin Allergy seizure Verified 02/07/23 21:58 like activity Physical Exam Vitals: Vital Signs Temp Pulse Pulse Resp BP BP Pulse Ox 02/08/23 07:50 98.7 F 78 19 169/79 99 02/08/23 04:00 73 16 160/72 97 02/08/23 01:24 73 16 158/66 98 02/08/23 01:02 98.1 F 78 18 176/83 98 02/07/23 23:37 80 15 176/80 97 02/07/23 21:32 92 17 156/72 98 02/07/23 19:53 97.8 F 91 18 156/72 99 Intake and Output 02/07/23 02/08/23 02/08/23 22:59 06:59 14:59 Intake Total 118 Output Total 400 1450 Balance -400 -1450 118 Intake: Oral 118 Output: Urine 400 1450 Other: Voiding Method Urinal Weight 104.326 kg 105 kg Results - Lab Results Most recent lab results Calcium 9.2 mg/dL (8.4-10.2) 02/07/23 20:05 02/07/23 20:05 02/07/23 20:05 Assessment and Plan Plan: Assessment: 1. Acute kidney injury mostly prerenal secondary to cardiorenal syndrome. Creatinine 2.27 on admission. 2. Chronic kidney disease stage IIIB with baseline creatinine near 2 secondary to diabetic kidney disease. 3. Volume overload. 4. Acute right lower extremity DVT on anticoagulation. 5. Anemia of chronic kidney disease. Rule out iron deficiency. 6. Diabetes mellitus. 7. Hypertension with chronic kidney disease. 8. Chronic kidney disease mineral bone disease maintained on calcitriol. 9. Acute on chronic systolic CHF with ejection fraction of 45%. Plan: Maintain IV Lasix. Dose increased to 40 mg IV twice a day by cardiology. Check renal ultrasound. Check iron studies. Home antihypertensives resumed. Avoid nephrotoxins. Continue to monitor renal function and urine output. Thank you for the consultation. I will continue to follow the patient with you during his hospital stay.
[2023-02-08 11:39] LABS: Glucose,Whole Blood 197 mg/dL (70-110)
--- NOTE | 2023-02-08 11:43 | P.CONS ---
History of Present Illness - Reason for Consult Consult date: 02/08/23 wound care - History of Present Illness This is a 77-year-old patient being seen by the wound care center on for nonhealing ulcerations to the radiation. Patient suffered a fall at home resulting in multiple open ulcerations to the right jose. At this time he is absorptive silver to the site. Patient has multiple open ulcerations to the anterior right lower extremity. Ulcerations or Limited to skin breakdown. Granulation seen throughout the wound bed with minimal slough. Patient's past medical history significant for heart failure, diabetes, deep vein thrombosis, hyperlipidemia, hypertension, neuropathy and a left [id number] amputation. Review Of Systems: Constitutional: No fever, no chills, no night sweats. No weight change. No weakness, fatigue or lethargy. No daytime sleepiness. Integumentary:reports wounds, no lesions. No rash or pruritus. No unusual bruising. No change in hair or nails. Physical exam: General Appearance: Alert, cooperative, no distress, appears stated age. Skin: See HPI all other Skin color, texture, tugor normal, no rashes or lesions. Neurologic: Alert oriented x3 Assessment: 1. Nonpressure ulcerations to the right lower extremity 2. Diabetes with skin ulceration plan: 1. Apply absorptive silver, family was gauze, dry gauze, rolled gauze and secu re with paper tape. Change Tuesday and Tuesday. Thank you for the consultation any questions please contact the wound care center DNP note has been reviewed and discussed with Dr. Lui and the impression and plan of care has been directed as dictated. Past Medical History Past Medical History: Heart Failure, Diabetes Mellitus, Deep Vein Thrombosis (DVT), Hyperlipidemia, Hypertension, Syncope Additional Past Medical History / Comment(s): other hx:per pt's "xray noted lung nodules". 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 There are no pets in the home. No service. Patient has lived in [facility]. 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 Patient is moved to this area to be close to his children. No significant history of alcohol or recreational drug use. No international travel. No animal exposures. Smoking Status: Never smoker Past Alcohol Use History: None Reported Additional Past Alcohol Use History / Comment(s): Patient is and lives at home with his . There are no pets in the home. No service. Patient has lived in [facility]. 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 Patient is moved to this area to be close to his children. No significant history of alcohol or recreational drug use. No international trave l. No animal exposures. Past Drug Use History: None Reported - Past Family History Father Family Medical History: Deep Vein Thrombosis (DVT) Additional Family Medical History / Comment(s): had valve sx- a week later from complications Mother Family Medical History: Congestive Heart Failure (CHF) Additional Family Medical History / Comment(s): phlebitis Medications and Allergies Home Medications Medication Instructions Recorded Confirmed Type Aspirin EC [Ecotrin Low Dose] 81 mg PO DAILY@0900 06/18/19 02/07/23 History Multivitamin/Iron/Folic Acid 1 tab PO DAILY@0900 06/18/19 02/07/23 History [Centrum Complete Multivit Tab] Sennosides-Docusate Sodium 1 tab PO DAILY@89906/18/19 02/07/23 History [Senokot-S] hydrALAZINE HCL [Apresoline] 100 mg PO TID@0900,1500,2230 06/18/19 02/07/23 History Prazosin HCl 4 mg PO TID@0900,1500,222909/05/19 02/07/23 History Apixaban [Eliquis] 5 mg PO BID@899,199903/04/21 02/07/23 History Atorvastatin [Lipitor] 40 mg PO HS@222901/27/22 02/07/23 History Cholecalciferol (Vitamin D3) 125 mcg PO DAILY@89901/27/22 02/07/23 History [Vitamin D3 (125 MCG = 5,000 IU)] Isosorbide Mononitrate ER [Imdur] 60 mg PO DAILY@89901/27/22 02/07/23 History Tamsulosin [Flomax] 0.4 mg PO DAILY@199901/27/22 02/07/23 History carvediloL [Coreg] 25 mg PO BID@899,199901/27/22 02/07/23 History Insulin NPH Hum/Reg Insulin Hm 20 units SQ BID-W/MEALS 11/09/22 02/07/23 History [humuLIN 70/30 Kwikpen] Sodium Bicarbonate Tab 650 mg PO BID@09,199911/09/22 02/07/23 History calcitrioL [Calcitriol] 0.5 mcg PO MOWEFR@89912/23/22 02/07/23 History Insulin Aspart [NovoLOG Flexpen] 10 units SQ TID-W/MEALS 02/07/23 02/07/23 History Insulin Aspart [NovoLOG Flexpen] See Protocol SQ TID-W/MEALS PRN 02/07/23 0 02/07/23 History cloNIDine HCL [Catapres] 0.3 mg PO TID@0900,1500,2230 02/07/23 02/07/23 History Allergies Allergy/AdvReac Type Severity Reaction Status Date / Time amlodipine Allergy Anaphylaxis Verified 02/07/23 21:58 lisinopril Allergy tongue Verified 02/07/23 21:58 swelling vancomycin Allergy seizure Verified 02/07/23 21:58 like activity Physical Exam Vitals: Vital Signs Temp Pulse Pulse Pulse Resp BP BP 02/08/23 10:25 80 18 02/08/23 07:50 98.7 F 78 19 169/79 02/08/23 04:00 73 16 160/72 02/08/23 01:24 73 16 158/66 02/08/23 01:02 98.1 F 78 18 176/83 02/07/23 23:37 80 15 176/80 02/07/23 21:32 92 17 156/72 02/07/23 19:53 97.8 F 91 18 156/72 Pulse Ox 02/08/23 10:25 02/08/23 07:50 99 02/08/23 04:00 97 02/08/23 01:24 98 02/08/23 01:02 98 02/07/23 23:37 97 02/07/23 21:32 98 02/07/23 19:53 99 Intake and Output 02/07/23 02/08/23 02/08/23 22:59 06:59 14:59 Intake Total 118 Output Total 400 1450 Balance -400 -1450 118 Intake: Oral 118 Output: Urine 400 1450 Other: Voiding Method Urinal Urinal Weight 104.326 kg 105 kg Results CBC & Chem 7: 02/07/23 20:05 02/07/23 20:05 Labs: Abnormal Lab Results - Last 24 Hours (Table) 02/07/23 02/07/23 02/08/23 Range/Units 20:05 20:05 00:40 RBC 3.45 L (4.30-5.90) m/uL Hgb 8.6 L (13.0-17.5) gm/dL Hct 26.7 L (39.0-53.0) % MCV 77.4 L (80.0-100.0) fL MCH 24.8 L (25.0-35.0) pg RDW 16.4 H (11.5-15.5) % Lymphocytes # 0.3 L (1.0-4.8) k/uL BUN 43 H (9-20) mg/dL Creatinine 2.27 H (0.66-1.25) mg/dL Glucose 168 H (74-99) mg/dL POC Glucose (mg/dL) (70-110) mg/dL Hemoglobin A1c (0.0-6.0) % Troponin I 0.049 H* (0.000-0.034) ng/mL Total Protein 6.1 L (6.3-8.2) g/dL 02/08/23 02/08/23 02/08/23 Range/Units 00:40 04:56 06:11 RBC (4.30-5.90) m/uL Hgb (13.0-17.5) gm/dL Hct (39.0-53.0) % MCV (80.0-100.0) fL MCH (25.0-35.0) pg RDW (11.5-15.5) % Lymphocytes # (1.0-4.8) k/uL BUN (9-20) mg/dL Creatinine (0.66-1.25) mg/dL Glucose (74-99) mg/dL POC Glucose (mg/dL) 201 H (70-110) mg/dL Hemoglobin A1c 6.4 H (0.0-6.0) % Troponin I 0.090 H* (0.000-0.034) ng/mL Total Protein (6.3-8.2) g/dL Assessment and Plan (1) Non-pressure chronic ulcer of other part of right lower leg limited to breakdown of skin Current Visit: Yes Status: Acute Code(s): L97.811 - NON-PRS CHR ULCER OTH PRT R LOW LEG LIMITED TO BRKDWN SKIN SNOMED Code(s): 23790115070248488 (2) Type 2 diabetes mellitus with other skin ulcer Current Visit: Yes Status: Acute Code(s): E11.622 - TYPE 2 DIABETES MELLITUS WITH OTHER SKIN ULCER; L98.499 - NON-PRESSURE CHRONIC ULCER OF SKIN OF SITES W UNSP SEVERITY SNOMED Code(s): 999450756
--- NOTE | 2023-02-08 12:29 | P.CRDCN ---
History of Present Illness Consult date: 02/08/23 History of present illness: HISTORY OF PRESENT ILLNESS: This is a 77-year-old male with a past medical history significant for CHF, hypertension, hyperlipidemia, diabetes, carotid stenosis, pulmonary embolism, peripheral vascular disease, coronary artery disease, and left [id number] amputation. Patient follows in the office with Dr. Murillo. We have been asked to see the patient in consultation for CHF. Patient examined at the bedside. Charlene brandon states he presented to the hospital secondary to increasing swelling of his right lower extremity and shortness of breath with exertion. He states this has been going on for the past several weeks. The patient states he has a history of congestive heart failure. However he is not taking diuretics on an outpatient basis. The patient was found to be in acute congestive heart failure and was started on IV Lasix. At the time of my examination he denies chest pain or pressure. He denies shortness of breath. Vital signs are stable. * EKG reveals sinus mechanism with T-wave inversions, similar to previous EKG * Chest xray negative for acute process * Laboratory data: WBC 5.1. Hemoglobin 8.6. Platelet count 191. Sodium 140. Potassium 4.3. BUN 43. Creatinine 2.27. Troponin 0.033. 0.049. 0.090. ProBNP 6520. * Current home cardiac medications include Lipitor 40 mg at night, leading 0.3 mg 3 times a day, hydralazine 100 mg 3 times a day, aspirin 81 mg daily, carvedilol 25 mg twice a day, Minipress 4 mg 3 times a day, and Eliquis 5mg BID * Lower extremity Doppler: DVT of right lower extremity noted. * Most recent echocardiogram obtained in December 2022 revealed ejection fracti on 45%, inferior apical, apical septal and apex are hypokinetic. * Cardiac catheterization history: 2017 revealing severe triple vessel CAD. Treated medically. REVIEW OF SYSTEMS: At the time of my exam: CONSTITUTIONAL: Denies fever or chills. HEENT: Denies blurred vision, vision changes, or eye pain. Denies hemoptysis CARDIOVASCULAR: Denies chest pain. Denies orthopnea. Denies PND. Denies palpitations RESPIRATORY: Denies shortness of breath. GASTROINTESTINAL: Denies abdominal pain. Denies nausea or vomiting. HEMATOLOGIC: Denies bleeding disorders. GENITOURINARY: Denies any blood in urine. SKIN: Denies pruitis. Denies rash. PHYSICAL EXAM: VITAL SIGNS: Reviewed. GENERAL: Well-developed in no acute distress. HEENT: Head is normocephalic. Pupils are equal, round. Sclerae anicteric. Mucous membranes of the mouth are moist. Neck supple. No JVD or thyromegaly LUNGS: Respirations even and unlabored. Lungs essentially clear to auscultation bilaterally. HEART: Regular rate and rhythm. S1 and S2 heard. ABDOMEN: Soft. Nondistended. Nontender. EXTREMITIES: Normal range of motion. No clubbing or cyanosis. Left AKA. Right lower extremity with 3+ edema at the ankles. Dressings noted to wound of RLE. NEUROLOGIC: Awake and alert. Oriented x 3. ASSESSMENT: Acute on chronic heart failure with mildly reduced EF, 45% Hypertension Hyperlipidemia Chronic kidney disease Diabetes Carotid stenosis History of pulmonary embolism Peripheral vascular disease History of left adwkz-jyj-twua amputation Diabetes PLAN: No need to repeat echocardiogram Continue IV lasix. Increase dose to 40mg IV q12 hours Daily weight, accurate I&O, and monitoring of kidney function Continue additional home cardiac medications Further recommendations pending patient course Nurse practitioner note has been reviewed by physician. Signing provider agrees with the documented findings, assessment, and plan of care. Past Medical History Past Medical History: Heart Failure, Diabetes Mellitus, Deep Vein Thrombosis (DVT), Hyperlipidemia, Hypertension, Syncope Additional Past Medical History / Comment(s): other hx:per pt's "xray noted lung nodules". 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, L foot gr toe, 3rd &2nd toe amputated; Rfoot 3rd toe amputated, Bypass in Bilat legs, eulogio knee sx(cartilage), lt arm picc line.since removed, x3 sx total facial plastic sx and grafting done area under lt eye d/t injury, Ackerman placement.-rt upper chest/removed Past Anesthesia/Blood Transfusion Reactions: Postoperative Nausea & Vomiting (PONV) Additional Past Anesthesia/Blood Transfusion Reaction / Comment(s): never recieved blood Past Psychological History: No Psychological Hx Reported Additional Psychological History / Comment(s): Patient is and lives at home with his . There are no pets in the home. No service. Patient has lived in [facility]. 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 Patient is moved to this area to be close to his children. No significant history of alcohol or recreational drug use. No international travel. No animal exposures. Smoking Status: Never smoker Past Alcohol Use History: None Reported Additional Past Alcohol Use History / Comment(s): Patient is and lives at home with his . There are no pets in the home. No service. Patient has lived in [facility]. 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 Patient is moved to this area to be close to his children. No significant history of alcohol or recreational drug use. No international travel. No animal exposures. Past Drug Use History: None Reported - Past Family History Father Family Medical History: Deep Vein Thrombosis (DVT) Additional Family Medical History / Comment(s): had valve sx- a week later from complications Mother Family Medical History: Congestive Heart Failure (CHF) Additional Family Medical History / Comment(s): phlebitis Medications and Allergies Home Medications Medication Instructions Recorded Confirmed Type Aspirin EC [Ecotrin Low Dose] 81 mg PO DAILY@89906/18/19 02/07/23 History Multivitamin/Iron/Folic Acid 1 tab PO DAILY@89906/18/19 02/07/23 History [Centrum Complete Multivit Tab] Sennosides-Docusate Sodium 1 tab PO DAILY@89906/18/19 02/07/23 History [Senokot-S] hydrALAZINE HCL [Apresoline] 100 mg PO TID@0900,1500,222906/18/19 02/07/23 History Prazosin HCl 4 mg PO TID@0900,1500,222909/05/19 02/07/23 History Apixaban [Eliquis] 5 mg PO BID@899,199903/04/21 02/07/23 History Atorvastatin [Lipitor] 40 mg PO HS@222901/27/22 02/07/23 History Cholecalciferol (Vitamin D3) 125 mcg PO DAILY@89901/27/22 02/07/23 History [Vitamin D3 (125 MCG = 5,000 IU)] Isosorbide Mononitrate ER [Imdur] 60 mg PO DAILY@89901/27/22 02/07/23 History Tamsulosin [Flomax] 0.4 mg PO DAILY@199901/27/22 02/07/23 History carvediloL [Coreg] 25 mg PO BID@899,199901/27/22 02/07/23 History Insulin NPH Hum/Reg Insulin Hm 20 units SQ BID-W/MEALS 11/09/22 02/07/23 History [humuLIN 70/30 Kwikpen] Sodium Bicarbonate Tab 650 mg PO BID@899,199911/09/22 02/07/23 History calcitrioL [Calcitriol] 0.5 mcg PO MOWEFR@89912/23/22 02/07/23 History Insulin Aspart [NovoLOG Flexpen] 10 units SQ TID-W/MEALS 02/07/23 02/07/23 History Insulin Aspart [NovoLOG Flexpen] See Protocol SQ TID-W/MEALS PRN 02/07/23 02/07/23 History cloNIDine HCL [Catapres] 0.3 mg PO TID@0900,1500,222902/07/23 02/07/23 History Allergies Allergy/AdvReac Type Severity Reaction Status Date / Time amlodipine Allergy Anaphylaxis Verified 02/07/23 21:58 lisinopril Allergy tongue Verified 02/07/23 21:58 swelling vancomycin Allergy seizure Verified 02/07/23 21:58 like activity Physical Exam Vitals: Vital Signs Temp Pulse Pulse Pulse Resp BP BP 02/08/23 10:25 80 18 02/08/23 07:50 98.7 F 78 19 169/79 02/08/23 04:00 73 16 160/72 02/08/23 01:24 73 16 158/66 02/08/23 01:02 98.1 F 78 18 176/83 02/07/23 23:37 80 15 176/80 02/07/23 21:32 92 17 156/72 02/07/23 19:53 97.8 F 91 18 156/72 Pulse Ox 02/08/23 10:25 02/08/23 07:50 99 02/08/23 04:00 97 02/08/23 01:24 98 02/08/23 01:02 98 02/07/23 23:37 97 02/07/23 21:32 98 02/07/23 19:53 99 Intake and Output 02/07/23 02/08/23 02/08/23 22:59 06:59 14:59 Intake Total 118 Output Total 400 1450 Balance -400 -1450 118 Intake: Oral 118 Output: Urine 400 1450 Other: Voiding Method Urinal Urinal Weight 104.326 kg 105 kg Results 02/07/23 20:05 02/07/23 20:05 Cardiac Enzymes 02/07/23 02/07/23 02/08/23 Range/Units 20:05 20:05 00:40 AST 26 (17-59) U/L Troponin I 0.033 0.049 H* (0.000-0.034) ng/mL 02/08/23 Range/Units 04:56 AST (17-59) U/L Troponin I 0.090 H* (0.000-0.034) ng/mL Coagulation 02/07/23 Range/Units 20:05 PT 10.7 (9.0-12.0) sec APTT 29.2 (22.0-30.0) sec CBC 02/07/23 Range/Units 20:05 WBC 5.1 (3.8-10.6) k/uL RBC 3.45 L (4.30-5.90) m/uL Hgb 8.6 L (13.0-17.5) gm/dL Hct 26.7 L (39.0-53.0) % Plt Count 191 (150-450) k/uL Comprehensive Metabolic Panel 02/07/23 Range/Units 20:05 Sodium 140 (137-145) mmol/L Potassium 4.3 (3.5-5.1) mmol/L Chloride 106 (98-107) mmol/L Carbon Dioxide 24 (22-30) mmol/L BUN 43 H (9-20) mg/dL Creatinine 2.27 H (0.66-1.25) mg/dL Glucose 168 H (74-99) mg/dL Calcium 9.2 (8.4-10.2) mg/dL AST 26 (17-59) U/L ALT 36 (4-49) U/L Alkaline Phosphatase 95 (38-126) U/L Total Protein 6.1 L (6.3-8.2) g/dL Albumin 3.7 (3.5-5.0) g/dL Current Medications Generic Name Dose Route Start Last Admin Trade Name Freq PRN Reason Stop Dose Admin Acetaminophen 650 mg 02/07/23 23:18 Acetaminophen Tab 325 Mg Tab PO Q6HR PRN Mild Pain or Fever > 100.5 Apixaban 5 mg 02/08/23 09:00 02/08/23 10:29 Apixaban 5 Mg Tab PO 5 mg BID GRAHAM Administration Protocol Atorvastatin Calcium 40 mg 02/08/23 21:00 Atorvastatin [address] [facility] Calcitriol 0.5 mcg 02/09/23 09:00 Calcitriol 0.25 Mcg Cap PO MOWEFR@0900 [facility] Carvedilol 25 mg 02/08/23 09:00 02/08/23 10:28 Carvedilol 12.5 Mg Tab PO 25 mg BID GRAHAM Administration Cholecalciferol 125 mcg 02/08/23 09:00 02/08/23 10:28 Cholecalciferol 125 Mcg (5000 Iu) Tablet PO 125 mcg DAILY@0900 GRAHAM Administration Clonidine 0.3 mg 02/08/23 09:00 02/08/23 10:28 Clonidine Hcl 0.1 Mg Tab PO 0.3 mg TID GRAHAM Administration Dextrose/Water 25 ml 02/07/23 23:22 Dextrose 50% Syringe 50 Ml IVP PER PROTOCOL PRN Hypoglycemia Protocol Dextrose/Water 50 ml 02/07/23 23:22 Dextrose 50% Syringe 50 Ml IVP PER PROTOCOL PRN Hypoglycemia Protocol Furosemide 40 mg 02/08/23 16:00 Furosemide 10 Mg/Ml 4 Ml Vial IV BID@0900,1600 [facility] Hydralazine HCl 100 mg 02/08/23 09:00 02/08/23 10:28 Hydralazine Hcl 50 Mg Tab PO [address] [facility] Administration Insulin Aspart 20 unit 02/08/23 07:30 02/08/23 06:36 Insuln Asp Prt/Insulin Aspart 100 Unit/Ml 10 Ml Vial SQ 20 unit BID-W/MEALS GRAHAM Administration Insulin Aspart 0 unit 02/08/23 07:30 02/08/23 06:37 Insulin Aspart (Novolog) 100 Unit/Ml Vial SQ [address] [facility] Administration Protocol Isosorbide Mononitrate 60 mg 02/08/23 09:00 02/08/23 10:28 Isosorbide Mononitrate Er 60 Mg Tab.Er.24h PO 60 mg DAILY@0900 [facility] Administration Multivitamins 1 each 02/08/23 09:00 02/08/23 10:28 Multivitamins, Thera 1 Each Tab PO 1 each DAILY@0900 [facility] Administration Naloxone HCl 0.2 mg 02/07/23 23:18 Naloxone 0.4 Mg/Ml 1 Ml Vial IV Q2M PRN Opioid Reversal Prazosin HCl 4 mg 02/08/23 09:00 Prazosin 1 [address] Cap PO TID [facility] Senna/Docusate Sodium 1 each 02/08/23 09:00 02/08/23 10:28 Sennosides-Docusate Sodium 1 Each Tab PO 1 each DAILY@0900 [facility] Administration Sodium Bicarbonate 650 mg 02/08/23 09:00 02/08/23 10:28 Sodium Bicarbonate Tab 650 Mg Tab PO [address] [facility] Administration Tamsulosin HCl 0.4 mg 02/08/23 21:00 Tamsulosin 0.4 Mg Cap.Er.24h PO HS [facility] Intake and Output 02/07/23 02/08/23 02/08/23 22:59 06:59 14:59 Intake Total 118 Output Total 400 1450 Balance -400 -1450 118 Intake: Oral 118 Output: Urine 400 1450 Other: Voiding Method Urinal Urinal Weight 104.326 kg 105 kg 02/07/23 20:05 02/07/23 20:05
[2023-02-08] MEDS: PRAZOSIN 1 MG CAP PO SCH ×3 (12:47→22:50)
--- NOTE | 2023-02-08 15:02 | P.HPIM ---
History of Present Illness H&P Date: 02/08/23 Chief Complaint: Right leg swelling This is a pleasant 77-year-old patient who follows with Dr. Jack De Jesus. Chronic stable medical conditions include diabetes mellitus type 2 on insulin, causing peripheral neuropathy and diabetic retinopathy, hypertension, hyperlipidemia, chronic kidney disease stage III, CHF from diastolic dysfunction, severe peripheral arterial disease, coronary artery disease not a candidate for surgical intervention, essential hypertension. Poor vision in left eye. Patient presents with some swelling of the right lower extremity coming on for a few days. May be some shortness of breath. No cough. No fever no chills. Appetite is good. Normally uses 2 pillows. No chest pain. Review of systems: GEN.: Tired] EYES: Decreased vision in left eye HEENT: None NECK: None RESPIRATORY: Some Short of breath CARDIOVASCULAR: Edema GASTROINTESTINAL: None GENITOURINARY: None MUSCULOSKELETAL: Joint pains, left BKA LYMPHATICS: None HEMATOLOGICAL: None PSYCHIATRY: None NEUROLOGICAL: None Past medical history: diabetes mellitus type 2 on insulin, causing peripheral neuropathy and diabetic retinopathy, hypertension, hyperlipidemia, chronic kidney disease stage III, CHF from diastolic dysfunction, severe peripheral arterial disease, coronary artery disease not a candidate for surgical intervention, essential hypertension. 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 Physical examination: VITAL SIGNS: 98.7, 78, 19, 169/79, 99% room air GENERAL: Reclining, tired EYES: Pupils equal. Conjunctiva normal. Decreased vision in the left eye HEENT: External appearance of nose and ears normal, oral cavity grossly normal. Decreased hearing in right ear NECK: JVD not raised; masses not palpable. HEART: First and second heart sounds are normal; edema present LUNGS: Respiratory rate increased; decreased breath sounds. ABDOMEN: Soft, nontender, liver spleen not palpable, no masses palpable. PSYCH: AO 3, mood affect tired MUSCULOSKELETAL:No Clubbing/cyanosis;muscles-grossly intact. OA. Left AKA NEUROLOGICAL: Cranial nerves grossly intact; no facial asymmetry, power sensation grossly intact EXTREMITY: Right lower extremity swelling INVESTIGATIONS, reviewed in the clinical context: White count 5.1 hemoglobin 8.6 platelets 191 potassium 4.3 BUN 43 creatinine 2.27 Troponin I 0.033, 0.049, 0.090 EKG tracing personally reviewed by me-normal sinus rhythm. Some ST segment changes. Chest x-ray film personally reviewed by me-possibly some venous cephalization Doppler ultrasound right lower extremity ultrasound: Thrombus seen from proximal mid femoral vein down through the popliteal vein. Assessment and plan: -Acute DVT right lower extremity proximal mid femoral vein through the popliteal vein. Eliquis. Stocking. -Acute on chronic congestive heart failure from diastolic dysfunction exacerbation. EF 50-55%: IV Lasix -Troponin leak from CHF. Underlying chronic kidney disease. No evidence of ACS -Diabetes mellitus type 2, chronically on insulin causing peripheral neuropathy, diabetic retinopathy: Novolin 70/30 20 units at breakfast and 20 units with supper. Follow Accu- Cheks -Essential hypertension: Continue with Coreg, Catapres 0.3 mg 3 times a day, hydralazine, prazosin -Hyperlipidemia Lipitor -Chronic kidney disease stage III from diabetic nephropathy and hypertensive nephrosclerosis Follow renal function -Anemia of chronic kidney disease -Severe peripheral arterial disease Continue with aspirin -Coronary artery disease not a candidate for surgical intervention Coreg, Lipitor, Imdur -Decreased hearing in the right ear -Decreased vision in the left eye chronic -Left above-knee amputation -DO NOT RESUSCITATE Discussed with patient. Past Medical History Past Medical History: Heart Failure, Diabetes Mellitus, Deep Vein Thrombosis (DVT), Hyperlipidemia, Hypertension, Syncope Additional Past Medical History / Comment(s): other hx:per pt's "xray noted lung nodules". 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 There are no pets in the home. No service. Patient has lived in [facility]. 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 Patient is moved to this area to be close to his children. No significant history of alcohol or recreational drug use. No international travel. No animal exposures. Smoking Status: Never smoker Past Alcohol Use History: None Reported Additional Past Alcohol Use History / Comment(s): Patient is and lives at home with his . There are no pets in the home. No service. Patient has lived in [facility]. 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 Patient is moved to this area to be close to his children. No significant history of alcohol or recreational drug use. No international travel. No animal exposures. Past Drug Use History: None Reported - Past Family History Father Family Medical History: Deep Vein Thrombosis (DVT) Additional Family Medical History / Comment(s): had valve sx- a week later from complications Mother Family Medical History: Congestive Heart Failure (CHF) Additional Family Medical History / Comment(s): phlebitis Medications and Allergies Home Medications Medication Instructions Recorded Confirmed Type Aspirin EC [Ecotrin Low Dose] 81 mg PO DAILY@0900 06/18/19 02/07/23 History Multivitamin/Iron/Folic Acid 1 tab PO DAILY@89906/18/19 02/07/23 History [Centrum Complete Multivit Tab] Sennosides-Docusate Sodium 1 tab PO DAILY@0900 06/18/19 02/07/23 History [Senokot-S] hydrALAZINE HCL [Apresoline] 100 mg PO TID@0900,1500,2230 06/18/1920/23 History Prazosin HCl 4 mg PO TID@0900,1499,222909/05/19 02/07/23 History Apixaban [Eliquis] 5 mg PO BID@899,199903/04/21 02/07/23 History Atorvastatin [Lipitor] 40 mg PO HS@222901/27/22 02/07/23 History Cholecalciferol (Vitamin D3) 125 mcg PO DAILY@89901/27/22 02/07/23 History [Vitamin D3 (125 MCG = 5,000 IU)] Isosorbide Mononitrate ER [Imdur] 60 mg PO DAILY@89901/27/22 02/07/23 History Tamsulosin [Flomax] 0.4 mg PO DAILY@199901/27/22 02/07/23 History carvediloL [Coreg] 25 mg PO BID@899,199901/27/22 02/07/23 History Insulin NPH Hum/Reg Insulin Hm 20 units SQ BID-W/MEALS 11/09/22 02/07/23 History [humuLIN 70/30 Kwikpen] Sodium Bicarbonate Tab 650 mg PO BID@09,199911/09/22 02/07/23 History calcitrioL [Calcitriol] 0.5 mcg PO MOWEFR@89912/23/22 02/07/23 History Insulin Aspart [NovoLOG Flexpen] 10 units SQ TID-W/MEALS 02/07/23 02/07/23 History Insulin Aspart [NovoLOG Flexpen] See Protocol SQ TID-W/MEALS PRN 02/07/23 02/07/23 History cloNIDine HCL [Catapres] 0.3 mg PO TID@0900,1500,222902/07/23 02/07/23 History Allergies Allergy/AdvReac Type Severity Reaction Status Date / Time amlodipine Allergy Anaphylaxis Verified 02/07/23 21:58 lisinopril Allergy tongue Verified 02/07/23 21:58 swelling vancomycin Allergy seizure Verified 02/07/23 21:58 like activity Physical Exam Vitals: Vital Signs Temp Pulse Pulse Resp BP BP Pulse Ox 02/08/23 07:50 98.7 F 78 19 169/79 99 02/08/23 04:00 73 16 160/72 97 02/08/23 01:24 73 16 158/66 98 02/08/23 01:02 98.1 F 78 18 176/83 98 02/07/23 23:37 80 15 176/80 97 02/07/23 21:32 92 17 156/72 98 02/07/23 19:53 97.8 F 91 18 156/72 99 Intake and Output 02/07/23 02/08/23 02/08/23 22:59 06:59 14:59 Intake Total 118 Output Total 400 1450 Balance -400 -1450 118 Intake: Oral 118 Output: Urine 400 1450 Other: Voiding Method Urinal Weight 104.326 kg 105 kg Results CBC & Chem 7: 02/07/23 20:05 02/07/23 20:05 Labs: Abnormal Lab Results - Last 24 Hours (Table) 02/07/23 02/07/23 02/08/23 Range/Units 20:05 20:05 00:40 RBC 3.45 L (4.30-5.90) m/uL Hgb 8.6 L (13.0-17.5) gm/dL Hct 26.7 L (39.0-53.0) % MCV 77.4 L (80.0-100.0) fL MCH 24.8 L (25.0-35.0) pg RDW 16.4 H (11.5-15.5) % Lymphocytes # 0.3 L (1.0-4.8) k/uL BUN 43 H (9-20) mg/dL Creatinine 2.27 H (0.66-1.25) mg/dL Glucose 168 H (74-99) mg/dL POC Glucose (mg/dL) (70-110) mg/dL Troponin I 0.049 H* (0.000-0.034) ng/mL Total Protein 6.1 L (6.3-8.2) g/dL 02/08/23 02/08/23 Range/Units 04:56 06:11 RBC (4.30-5.90) m/uL Hgb (13.0-17.5) gm/dL Hct (39.0-53.0) % MCV (80.0-100.0) fL MCH (25.0-35.0) pg RDW (11.5-15.5) % Lymphocytes # (1.0-4.8) k/uL BUN (9-20) mg/dL Creatinine (0.66-1.25) mg/dL Glucose (74-99) mg/dL POC Glucose (mg/dL) 201 H (70-110) mg/dL Troponin I 0.090 H* (0.000-0.034) ng/mL Total Protein (6.3-8.2) g/dL Thrombosis Risk Factor Assmnt - Choose All That Apply Each Factor Represents 1 point: Obesity (BMI >25) Each Risk Factor Represents 3 Points: Age 75 years or older Thrombosis Risk Factor Assessment Total Risk Factor Score: 4 Thrombosis Risk Factor Assessment Level: Moderate Risk
[2023-02-08 15:45] LABS: % Iron Saturation 6.12 (15.00-50.00)
[2023-02-08 15:53] LABS: Ferritin 14.9 ng/mL (22.0-322.0)
--- NOTE | 2023-02-08 16:03 | US ---
EXAMINATION TYPE: US kidneys/renal and bladder DATE OF EXAM: 02/08/2023 COMPARISON: 10/13/2022 CLINICAL HISTORY: chintan. Abnormal labs EXAM MEASUREMENTS: Right Kidney: 10.8 x 5.1 x 5.2 cm Left Kidney: 11.6 x 4.9 x 6.6 cm Right Kidney: Cortical thinning. Limited visualization. Left Kidney: No hydronephrosis or masses seen, lobular cortex visualized. Bladder: anechoic Bilateral Jets not seen Urinary bladder is sonolucent. The posterior wall is normal. IMPRESSION: 1. No acute renal ultrasound changes evident.
--- NOTE | 2023-02-08 16:18 | P.GSCN ---
History of Present Illness History of present illness: 77-year-old gentleman who came with history of short of breath chest CHF and swelling of the right lower extremity. This patient is well known to me from the past he had a left above-knee amputation done by me in the past and also he had a toe amputation of the right foot in the past patient fell down at home and he had a superficial abrasion left lower extremity. Ultrasound shows DVT of the right leg femoral and popliteal vein patient is on anticoagulation for internal medicine no shortness of breath or chest pain On examination neck is supple no bruit appreciated Chest few crackles the lung bases first and second sound present Abdomen soft nontender Femorals 1+ PTDP not palpable the right foot has some swelling of the right lower extremity Recommend continue with anticoagulation one pillow elevation of the right leg there is no evidence of any compartment syndrome we'll follow with you if discharge from the hospital follow-up in my office for DVT follow-up Past Medical History Past Medical History: Heart Failure, Diabetes Mellitus, Deep Vein Thrombosis (DVT), Hyperlipidemia, Hypertension, Syncope Additional Past Medical History / Comment(s): other hx:per pt's "xray noted lung nodules". 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 There are no pets in the home. No service. Patient has lived in [facility]. He spent 25 years in 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 Patient is moved to this area to be close to his children. No significant history of alcohol or recreational drug use. No international travel. No animal exposures. Smoking Status: Never smoker Past Alcohol Use History: None Reported Additional Past Alcohol Use History / Comment(s): Patient is and lives at home with his . There are no pets in the home. No service. Patient has lived in [facility]. He spent 25 years in 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 Patient is moved to this area to be close to his children. No significant history of alcohol or recreational drug use. No international travel. No animal exposures. Past Drug Use History: None Reported - Past Family History Father Family Medical History: Deep Vein Thrombosis (DVT) Additional Family Medical History / Comment(s): had valve sx- a week later from complications Mother Family Medical History: Congestive Heart Failure (CHF) Additional Family Medical History / Comment(s): phlebitis Medications and Allergies Home Medications Medication Instructions Recorded Confirmed Type Aspirin EC [Ecotrin Low Dose] 81 mg PO DAILY@89906/18/19 02/07/23 History Multivitamin/Iron/Folic Acid 1 tab PO DAILY@89906/18/19 02/07/23 History [Centrum Complete Multivit Tab] Sennosides-Docusate Sodium 1 tab PO DAILY@89906/18/19 02/07/23 History [Senokot-S] hydrALAZINE HCL [Apresoline] 100 mg PO TID@0900,1500,222906/18/19 02/07/23 History Prazosin HCl 4 mg PO TID@0900,1500,222909/05/19 02/07/23 History Apixaban [Eliquis] 5 mg PO BID@899,199903/04/21 02/07/23 History Atorvastatin [Lipitor] 40 mg PO HS@2230 01/27/22 02/07/23 History Cholecalciferol (Vitamin D3) 125 mcg PO DAILY@0900 01/27/22 02/07/23 History [Vitamin D3 (125 MCG = 5,000 IU)] Isosorbide Mononitrate ER [Imdur] 60 mg PO DAILY@0901/27/22 02/07/23 History Tamsulosin [Flomax] 0.4 mg PO DAILY@199901/27/22 02/07/23 History carvediloL [Coreg] 25 mg PO BID@899,199901/27/22 02/07/23 History Insulin NPH Hum/Reg Insulin Hm 20 units SQ BID-W/MEALS 11/09/22 02/07/23 History [humuLIN 70/30 Kwikpen] Sodium Bicarbonate Tab 650 mg PO BID@899,199911/09/22 02/07/23 History calcitrioL [Calcitriol] 0.5 mcg PO MOWEFR@0912/23/22 02/07/23 History Insulin Aspart [NovoLOG Flexpen] 10 units SQ TID-W/MEALS 02/07/23 02/07/23 History Insulin Aspart [NovoLOG Flexpen] See Protocol SQ TID-W/MEALS PRN 02/07/23 02/07/23 History cloNIDine HCL [Catapres] 0.3 mg PO TID@0900,1500,0 02/07/23 02/07/23 History Allergies Allergy/AdvReac Type Severity Reaction Status Date / Time amlodipine Allergy Anaphylaxis Verified 02/07/23 21:58 lisinopril Allergy tongue Verified 02/07/23 21:58 swelling vancomycin Allergy seizure Verified 02/07/23 21:58 like activity Surgical - Exam Vital Signs Temp Pulse Resp BP Pulse Ox 97.8 F 91 18 156/72 99 02/07/23 19:53 02/07/23 19:53 02/07/23 19:53 02/07/23 19:53 02/07/23 19:53 Results - Labs 02/07/23 20:05 02/07/23 20:05 Abnormal Lab Results - Last 24 Hours (Table) 02/07/23 02/07/23 02/07/23 Range/Units 20:05 20:05 20:05 RBC 3.45 L (4.30-5.90) m/uL Hgb 8.6 L (13.0-17.5) gm/dL Hct 26.7 L (39.0-53.0) % MCV 77.4 L (80.0-100.0) fL MCH 24.8 L (25.0-35.0) pg RDW 16.4 H (11.5-15.5) % Lymphocytes # 0.3 L (1.0-4.8) k/uL BUN 43 H (9-20) mg/dL Creatinine 2.27 H (0.66-1.25) mg/dL Glucose 168 H (74-99) mg/dL POC Glucose (mg/dL) (70-110) mg/dL Hemoglobin A1c (0.0-6.0) % Iron 24 L (65-175) ug/dL % Saturation 6.12 L (15.00-50.00) Ferritin 14.9 L (22.0-322.0) ng/mL Troponin I (0.000-0.034) ng/mL Total Protein 6.1 L (6.3-8.2) g/dL 02/08/23 02/08/23 02/08/23 Range/Units 00:40 00:40 04:56 RBC (4.30-5.90) m/uL Hgb (13.0-17.5) gm/dL Hct (39.0-53.0) % MCV (80.0-100.0) fL MCH (25.0-35.0) pg RDW (11.5-15.5) % Lymphocytes # (1.0-4.8) k/uL BUN (9-20) mg/dL Creatinine (0.66-1.25) mg/dL Glucose (74-99) mg/dL POC Glucose (mg/dL) (70-110) mg/dL Hemoglobin A1c 6.4 H (0.0-6.0) % Iron (65-175) ug/dL % Saturation (15.00-50.00) Ferritin (22.0-322.0) ng/mL Troponin I 0.049 H* 0.090 H* (0.000-0.034) ng/mL Total Protein (6.3-8.2) g/dL 02/08/23 02/08/23 Range/Units 06:11 11:35 RBC (4.30-5.90) m/uL Hgb (13.0-17.5) gm/dL Hct (39.0-53.0) % MCV (80.0-100.0) fL MCH (25.0-35.0) pg RDW (11.5-15.5) % Lymphocytes # (1.0-4.8) k/uL BUN (9-20) mg/dL Creatinine (0.66-1.25) mg/dL Glucose (74-99) mg/dL POC Glucose (mg/dL) 201 H 197 H (70-110) mg/dL Hemoglobin A1c (0.0-6.0) % Iron (65-175) ug/dL % Saturation (15.00-50.00) Ferritin (22.0-322.0) ng/mL Troponin I (0.000-0.034) ng/mL Total Protein (6.3-8.2) g/dL Diabetes panel 02/07/23 02/08/23 Range/Units 20:05 00:40 Sodium 140 (137-145) mmol/L Potassium 4.3 (3.5-5.1) mmol/L Chloride 106 (98-107) mmol/L Carbon Dioxide 24 (22-30) mmol/L BUN 43 H (9-20) mg/dL Creatinine 2.27 H (0.66-1.25) mg/dL Glucose 168 H (74-99) mg/dL Hemoglobin A1c 6.4 H (0.0-6.0) % Calcium 9.2 (8.4-10.2) mg/dL AST 26 (17-59) U/L ALT 36 (4-49) U/L Alkaline Phosphatase 95 (38-126) U/L Total Protein 6.1 L (6.3-8.2) g/dL Albumin 3.7 (3.5-5.0) g/dL Calcium panel 02/07/23 Range/Units 20:05 Calcium 9.2 (8.4-10.2) mg/dL Albumin 3.7 (3.5-5.0) g/dL Pituitary panel 02/07/23 Range/Units 20:05 Sodium 140 (137-145) mmol/L Potassium 4.3 (3.5-5.1) mmol/L Chloride 106 (98-107) mmol/L Carbon Dioxide 24 (22-30) mmol/L BUN 43 H (9-20) mg/dL Creatinine 2.27 H (0.66-1.25) mg/dL Glucose 168 H (74-99) mg/dL Calcium 9.2 (8.4-10.2) mg/dL Adrenal panel 02/07/23 Range/Units 20:05 Sodium 140 (137-145) mmol/L Potassium 4.3 (3.5-5.1) mmol/L Chloride 106 (98-107) mmol/L Carbon Dioxide 24 (22-30) mmol/L BUN 43 H (9-20) mg/dL Creatinine 2.27 H (0.66-1.25) mg/dL Glucose 168 H (74-99) mg/dL Calcium 9.2 (8.4-10.2) mg/dL Total Bilirubin 0.4 (0.2-1.3) mg/dL AST 26 (17-59) U/L ALT 36 (4-49) U/L Alkaline Phosphatase 95 (38-126) U/L Total Protein 6.1 L (6.3-8.2) g/dL Albumin 3.7 (3.5-5.0) g/dL
[2023-02-08 16:29] LABS: Glucose,Whole Blood 263 mg/dL (70-110)
[2023-02-08] MEDS: FUROSEMIDE 10 MG/ML 4 ML VIAL IV SCH (17:15)
[2023-02-08] MEDS ORDERED: LACTULOSE 20 GM/30 ML CUP PO ONE (19:12)
[2023-02-08 20:02] LABS: Glucose,Whole Blood 145 mg/dL (70-110)
[2023-02-08] MEDS ORDERED: TAMSULOSIN 0.4 MG CAP.ER.24H PO SCH (21:00)
[2023-02-08] MEDS ORDERED: ATORVASTATIN 40 MG TAB PO SCH (21:00)
[2023-02-09 06:06] LABS: Glucose,Whole Blood 155 mg/dL (70-110)
[2023-02-09] MEDS: INSULIN ASPART (NovoLOG) 100 UNIT/ML VIAL SQ SCH ×3 (06:55→17:20)
[2023-02-09] MEDS: INSULN ASP PRT/INSULIN ASPART 100 UNIT/ML 10 ML VIAL SQ SCH ×2 (06:58→17:24)
[2023-02-09] MEDS: PRAZOSIN 1 MG CAP PO SCH ×2 (08:48→15:24)
[2023-02-09] MEDS: SENNOSIDES-DOCUSATE SODIUM 1 EACH TAB PO SCH (08:48)
[2023-02-09] MEDS: cloNIDine HCL 0.1 MG TAB PO SCH ×2 (08:48→15:24)
[2023-02-09] MEDS: APIXABAN 5 MG TAB PO SCH (08:49)
[2023-02-09] MEDS: CHOLECALCIFEROL 125 MCG (5000 IU) TABLET PO SCH (08:49)
[2023-02-09] MEDS: FUROSEMIDE 10 MG/ML 4 ML VIAL IV SCH (08:49)
[2023-02-09] MEDS: carvediloL 12.5 MG TAB PO SCH (08:49)
[2023-02-09] MEDS: MULTIVITAMINS, THERA 1 EACH TAB PO SCH (08:49)
[2023-02-09] MEDS: SODIUM BICARBONATE TAB 650 MG TAB PO SCH (08:49)
[2023-02-09] MEDS: hydrALAZINE HCL 50 MG TAB PO SCH ×2 (08:49→15:24)
[2023-02-09] MEDS: ISOSORBIDE MONONITRATE ER 60 MG TAB.ER.24H PO SCH (08:49)
[2023-02-09 10:07] LABS: Calcium 8.8 mg/dL (8.4-10.2); Potassium 3.9 mmol/L (3.5-5.1)
--- NOTE | 2023-02-09 11:20 | P.PN ---
Subjective Progress Note Date: 02/09/23 HISTORY OF PRESENT ILLNESS: This is a 77-year-old male with a past medical history significant for CHF, hypertension, hyperlipidemia, diabetes, carotid stenosis, pulmonary embolism, peripheral vascular disease, coronary artery disease, and left nohmf-gbh-vbdc amputation. Patient follows in the office with Dr. Murillo. We have been asked to see the patient in consultation for CHF. Patient examined at the bedside. Patient states he presented to the hospital secondary to increasing swelling of his right lower extremity and shortness of breath with exertion. He states this has been going on for the past several weeks. The patient states he has a history of congestive heart failure. However he is not taking diuretics on an outpatient basis. The patient was found to be in acute congestive heart failure and was started on IV Lasix. At the time of my examination he denies chest pain or pressure. He denies shortness of breath. Vital signs are stable. * EKG reveals sinus mechanism with T-wave inversions, similar to previous EKG * Chest xray negative for acute process * Laboratory data: WBC 5.1. Hemoglobin 8.6. Platelet count 191. Sodium 140. Potassium 4.3. BUN 43. Creatinine 2.27. Troponin 0.033. 0.049. 0.090. ProBNP 6520. * Current home cardiac medications include Lipitor 40 mg at night, leading 0.3 mg 3 times a day, hydralazine 100 mg 3 times a day, aspirin 81 mg daily, carvedilol 25 mg twice a day, Minipress 4 mg 3 times a day, and Eliquis 5mg BID * Lower extremity Doppler: DVT of right lower extremity noted. * Most recent echocardiogram obtained in December 2022 revealed ejection fraction 45%, inferior apical, apical septal and apex are hypokinetic. * Cardiac catheterization history: 2017 revealing severe triple vessel CAD. Treated medically. 02/09/2023 Patient examined this morning at the bedside. Denies chest pain or pressure. Currently denies shortness of breath. Creatinine 2.17. PHYSICAL EXAM: VITAL SIGNS: Reviewed. GENERAL: Well-developed in no acute distress. HEENT: Head is normocephalic. Pupils are equal, round. Sclerae anicteric. Mucous membranes of the mouth are moist. Neck supple. No JVD or thyromegaly LUNGS: Respirations even and unlabored. Lungs essentially clear to auscultation bilaterally. HEART: Regular rate and rhythm. S1 and S2 heard. ABDOMEN: Soft. Nondistended. Nontender. EXTREMITIES: Normal range of motion. No clubbing or cyanosis. Left AKA. Right lower extremity with 2+ edema at the ankles. Dressings noted to wound of RLE. NEUROLOGIC: Awake and alert. Oriented x 3. ASSESSMENT: Acute on chronic heart failure with mildly reduced EF, 45% Hypertension Hyperlipidemia Chronic kidney disease Diabetes Carotid stenosis History of pulmonary embolism Peripheral vascular disease History of left tcard-edp-tunh amputation Diabetes PLAN: Discontinue IV Lasix Begin oral Lasix 40 mg in the morning and 20 mg in the afternoon Daily weight, accurate I&O, and monitoring of kidney function Further recommendations pending patient course Nurse practitioner note has been reviewed by physician. Signing provider agrees with the documented findings, assessment, and plan of care. Objective - Vital Signs Vital signs: Vital Signs Temp 98.2 F 02/09/23 08:00 Pulse 69 02/09/23 08:00 Resp 20 02/09/23 08:00 BP 167/76 02/09/23 08:00 Pulse Ox 100 02/09/23 08:00 FiO2 Intake & Output 02/08/23 02/09/23 02/09/23 18:59 06:59 18:59 Intake Total 118 180 Output Total 700 1200 300 Balance -582 -1200 -120 Intake: Oral 118 180 Output: Urine 700 1200 300 Other: Voiding Method Urinal Urinal Urinal # Voids 1 1 1 # Bowel Movements 1 2 1 - Labs CBC & Chem 7: 02/07/23 20:05 02/09/23 08:08 Labs: Abnormal Lab Results - Last 24 Hours (Table) 02/07/23 02/08/23 02/08/23 Range/Units 20:05 11:35 16:28 Carbon Dioxide (22-30) mmol/L BUN (9-20) mg/dL Creatinine (0.66-1.25) mg/dL Glucose (74-99) mg/dL POC Glucose (mg/dL) 197 H 263 H (70-110) mg/dL Iron 24 L (65-175) ug/dL % Saturation 6.12 L (15.00-50.00) Ferritin 14.9 L (22.0-322.0) ng/mL 02/08/23 02/09/23 02/09/23 Range/Units 20:01 06:04 08:08 Carbon Dioxide 21 L (22-30) mmol/L BUN 48 H (9-20) mg/dL Creatinine 2.17 H (0.66-1.25) mg/dL Glucose 197 H (74-99) mg/dL POC Glucose (mg/dL) 145 H 155 H (70-110) mg/dL Iron (65-175) ug/dL % Saturation (15.00-50.00) Ferritin (22.0-322.0) ng/mL
[2023-02-09 11:50] LABS: Glucose,Whole Blood 193 mg/dL (70-110)
--- NOTE | 2023-02-09 14:34 | P.PN ---
Subjective Patient is seen in follow-up for acute kidney injury on chronic kidney disease. Patient has chronic kidney disease stage IIIB with baseline creatinine near 2 secondary to diabetic kidney disease and nephrosclerosis. Renal function stable. On oral Lasix. Nonoliguric. Denies chest pain or shortness of breath. Vital signs are stable. General: No acute distress. HEENT: Head exam is unremarkable. LUNGS: No audible rhonchi or wheezes. HEART: Rate and Rhythm are regular. ABDOMEN: Soft, no distention. EXTREMITITES: No edema. Objective - Vital Signs Vital signs: Vital Signs Temp 97.7 F 02/09/23 12:00 Pulse 65 02/09/23 12:00 Resp 18 02/09/23 12:00 BP 157/70 02/09/23 12:00 Pulse Ox 98 02/09/23 12:00 FiO2 Intake & Output 02/08/23 02/09/23 02/09/23 18:59 06:59 18:59 Intake Total 118 803 Output Total 700 1200 1000 Balance -582 -1200 -197 Intake: Oral 118 803 Output: Urine 700 1200 1000 Other: Voiding Method Urinal Urinal Urinal # Voids 1 1 1 # Bowel Movements 1 2 1 - Labs CBC & Chem 7: 02/07/23 20:05 02/09/23 08:08 Labs: Abnormal Lab Results - Last 24 Hours (Table) 02/07/23 02/08/23 02/08/23 Range/Units 20:05 16:28 20:01 Carbon Dioxide (22-30) mmol/L BUN (9-20) mg/dL Creatinine (0.66-1.25) mg/dL Glucose (74-99) mg/dL POC Glucose (mg/dL) 263 H 145 H (70-110) mg/dL Iron 24 L (65-175) ug/dL % Saturation 6.12 L (15.00-50.00) Ferritin 14.9 L (22.0-322.0) ng/mL 02/09/23 02/09/23 02/09/23 Range/Units 06:04 08:08 11:48 Carbon Dioxide 21 L (22-30) mmol/L BUN 48 H (9-20) mg/dL Creatinine 2.17 H (0.66-1.25) mg/dL Glucose 197 H (74-99) mg/dL POC Glucose (mg/dL) 155 H 193 H (70-110) mg/dL Iron (65-175) ug/dL % Saturation (15.00-50.00) Ferritin (22.0-322.0) ng/mL Assessment and Plan Plan: Assessment: 1. Acute kidney injury mostly prerenal secondary to cardiorenal syndrome. Creatinine 2.27 on admission - stable at 2.17 today. No hydronephrosis noted on kidney ultrasound. 2. Chronic kidney disease stage IIIB with baseline creatinine near 2 secondary to diabetic kidney disease. 3. Volume overload. Improved with diuresis. 4. Acute right lower extremity DVT on anticoagulation. 5. Anemia of chronic kidney disease. Iron deficiency noted. 6. Diabetes mellitus. 7. Hypertension with chronic kidney disease. Stable. 8. Chronic kidney disease mineral bone disease maintained on calcitriol. 9. Acute on chronic systolic CHF with ejection fraction of 45%. Plan: Maintain oral Lasix. Add IV iron. Avoid nephrotoxins. Continue to monitor renal function and urine output.
[2023-02-09] MEDS ORDERED: SODIUM FERRIC GLUCONAT-SUCROSE 125 MG in SODIUM CHLORIDE 0.9% 100 ML IVPB SCH (15:00)
--- NOTE | 2023-02-09 15:05 | P.DS ---
Providers Date of admission: 02/07/23 23:21 Expected date of discharge: 02/09/23 Attending physician: Rk Crockett Consults: 02/07/23 23:18 Consult Physician Routine Consulting Provider: Bernard Adamson Consult Reason/Comments: Renal failure Do you want consulting provider notified?: Yes 02/08/23 07:00 Consult Physician Routine Consulting Provider: Josiah Best Consult Reason/Comments: Elevated Troponin Do you want consulting provider notified?: Yes 02/08/23 12:19 Consult Physician Routine Consulting Provider: Victor Hugo Franco Consult Reason/Comments: PVD, r/o ischemia right leg Do you want consulting provider notified?: Yes Primary care physician: Jack De Jesus [facility] Course: Chief Complaint: Right leg swelling This is a pleasant 77-year-old patient who follows with Dr. Jack De Jesus. Chronic stable medical conditions include diabetes mellitus type 2 on insulin, causing peripheral neuropathy and diabetic retinopathy, hypertension, hyperlipidemia, chronic kidney disease stage III, CHF from diastolic dysfunction, severe peripheral arterial disease, coronary artery disease not a candidate for surgical intervention, essential hypertension. Poor vision in left eye. Patient presents with some swelling of the right lower extremity coming on for a few days. May be some shortness of breath. No cough. No fever no chills. Appetite is good. Normally uses 2 pillows. No chest pain. Admitted with acute DVT in the right lower extremity. Acute CHF exacerbation. 02/09/2023: Given that patient was on eliquis and having failed outpatient discharge the patient on xarelto. Changed to by mouth Lasix. He received IV iron. He'll follow-up with Dr. Franco from vascular outpatient. Discussed with patient. Patient qualified to go to rehab [facility]. Discussion and discharge planning more than 35 minutes Past medical history: diabetes mellitus type 2 on insulin, causing peripheral neuropathy and diabetic retinopathy, hypertension, hyperlipidemia, chronic kidney disease stage III, CHF from diastolic dysfunction, severe peripheral arterial disease, coronary artery disease not a candidate for surgical intervention, essential hypertension. 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 Physical examination: VITAL SIGNS: 97.7, 65, 18, 1 57 x 70, 98% room air GENERAL: Reclining, comfortable EYES: Pupils equal. Conjunctiva normal. Decreased vision in the left eye HEENT: External appearance of nose and ears normal, oral cavity grossly normal. Decreased hearing in right ear NECK: JVD not raised; masses not palpable. HEART: First and second heart sounds are normal; edema present LUNGS: Respiratory rate increased; decreased breath sounds. ABDOMEN: Soft, nontender, liver spleen not palpable, no masses palpable. PSYCH: AO 3, mood affect tired MUSCULOSKELETAL:No Clubbing/cyanosis;muscles-grossly intact. OA. Left AKA NEUROLOGICAL: Cranial nerves grossly intact; no facial asymmetry, power sensation grossly intact EXTREMITY: Right lower extremity swelling INVESTIGATIONS, reviewed in the clinical context: February 09: Potassium 3.9 BUN 48 creatinine 2.17 White count 5.1 hemoglobin 8.6 platelets 191 potassium 4.3 BUN 43 creatinine 2.27 Troponin I 0.033, 0.049, 0.090 EKG tracing personally reviewed by me-normal sinus rhythm. Some ST segment changes. Chest x-ray film personally reviewed by me-possibly some venous cephalization Doppler ultrasound right lower extremity ultrasound: Thrombus seen from proximal mid femoral vein down through the popliteal vein. Assessment and plan: -Acute DVT right lower extremity proximal mid femoral vein through the popliteal vein. Patient changed doctors xarelto has failed outpatient was getting eliquis. Stocking. -Acute on chronic congestive heart failure from diastolic dysfunction exacerbation. EF 50-55%: IV Lasix. Changed to by mouth Lasix -Troponin leak from CHF. Underlying chronic kidney disease. No evidence of ACS -Diabetes mellitus type 2, chronically on insulin causing peripheral neuropathy, diabetic retinopathy: Novolin 70/30 20 units at breakfast and 20 units with supper. Follow Accu- Cheks -Essential hypertension: Continue with Coreg, Catapres 0.3 mg 3 times a day, hydralazine, prazosin -Hyperlipidemia Lipitor -Chronic kidney disease stage III from diabetic nephropathy and hypertensive nephrosclerosis Follow renal function -Anemia of chronic kidney disease -Severe peripheral arterial disease Continue with aspirin -Coronary artery disease not a candidate for surgical intervention Coreg, Lipitor, Imdur -Decreased hearing in the right ear -Decreased vision in the left eye chronic -Left above-knee amputation -DO NOT RESUSCITATE Disposition: Rehab at [facility] Plan - Discharge Summary Discharge Rx Participant: No New Discharge Prescriptions: New Rivaroxaban [Xarelto] 20 mg PO HS #30 tab Furosemide [Lasix] 40 mg PO DAILY #30 tab Continue Sennosides-Docusate Sodium [Senokot-S] 1 tab PO DAILY@0900 hydrALAZINE HCL [Apresoline] 100 mg PO TID@0900,1500,2229 Multivitamin/Iron/Folic Acid [Centrum Complete Multivit Tab] 1 tab PO DAILY@0900 Aspirin EC [Ecotrin Low Dose] 81 mg PO DAILY@0900 Prazosin HCl 4 mg PO TID@0900,1499,2229 Atorvastatin [Lipitor] 40 mg PO HS@2229 Cholecalciferol (Vitamin D3) [Vitamin D3 (125 MCG = 5,000 IU)] 125 mcg PO DAILY@899 Isosorbide Mononitrate ER [Imdur] 60 mg PO DAILY@899 Tamsulosin [Flomax] 0.4 mg PO DAILY@1999 Insulin NPH Hum/Reg Insulin Hm [humuLIN 70/30 Kwikpen] 20 units SQ BID- W/MEALS calcitrioL [Calcitriol] 0.5 mcg PO MOWEFR@899 cloNIDine HCL [Catapres] 0.3 mg PO TID@0900,1499,2229 carvediloL [Coreg] 25 mg PO BID@899,1999 Sodium Bicarbonate Tab 650 mg PO BID@899,1999 Discontinued Apixaban [Eliquis] 5 mg PO BID@899,1999 Insulin Aspart [NovoLOG Flexpen] See Protocol SQ TID-W/MEALS PRN PRN Reason: high blood sugar Insulin Aspart [NovoLOG Flexpen] 10 units SQ TID-W/MEALS Discharge Medication List Aspirin EC [Ecotrin Low Dose] 81 mg PO DAILY@0906/18/19 [History] Multivitamin/Iron/Folic Acid [Centrum Complete Multivit Tab] 1 tab PO DAILY@89906/18/19 [History] Sennosides-Docusate Sodium [Senokot-S] 1 tab PO DAILY@89906/18/19 [History] hydrALAZINE HCL [Apresoline] 100 mg PO TID@0900,1500,2230 06/18/19 [History] Prazosin HCl 4 mg PO TID@0900,1500,2230 09/05/19 [History] Atorvastatin [Lipitor] 40 mg PO HS@2230 01/27/22 [History] Cholecalciferol (Vitamin D3) [Vitamin D3 (125 MCG = 5,000 IU)] 125 mcg PO DAILY@89901/27/22 [History] Isosorbide Mononitrate ER [Imdur] 60 mg PO DAILY@89901/27/22 [History] Tamsulosin [Flomax] 0.4 mg PO DAILY@199901/27/22 [History] carvediloL [Coreg] 25 mg PO BID@899,199901/27/22 [History] Insulin NPH Hum/Reg Insulin Hm [humuLIN 70/30 Kwikpen] 20 units SQ BID-W/MEALS 11/09/22 [History] Sodium Bicarbonate Tab 650 mg PO BID@899,199911/09/22 [History] calcitrioL [Calcitriol] 0.5 mcg PO MOWEFR@89912/23/22 [History] cloNIDine HCL [Catapres] 0.3 mg PO TID@0900,1500,2230 02/07/23 [History] Furosemide [Lasix] 40 mg PO DAILY #30 tab 02/09/23 [Rx] Rivaroxaban [Xarelto] 20 mg PO HS #30 tab 02/09/23 [Rx] Follow up Appointment(s)/Referral(s): cardiology, [Other] - 2 Weeks Jack De Jesus MD [Primary Care Provider] - 1-2 days [facility] [NON-STAFF] - Bernard Adamson DO [STAFF PHYSICIAN] - 2 Weeks
[2023-02-09 15:34] VITALS: BP 161/76; PULSE 68; RESP 16; TEMP 97.8
[2023-02-09] MEDS ORDERED: FUROSEMIDE 20 MG TAB PO SCH (16:00)
[2023-02-09 16:59] LABS: Glucose,Whole Blood 166 mg/dL (70-110)
[2023-02-09] MEDS ORDERED: RIVAROXABAN 20 MG TAB PO SCH (17:30)
[2023-02-10] MEDS ORDERED: FUROSEMIDE 40 MG TAB PO SCH (09:00)
== END 2023-02-09 19:15 | DRG 299 ==
LOC: EC 19:52 → 3SCARD 23:21
PROVIDERS: ADMIT Hospitalist; ATTEND Hospitalist
DX: I82.411 Acute embolism and thrombosis of right femoral vein (principal); I50.23 Acute on chronic systolic (congestive) heart failure; I13.0 Hypertensive heart and chronic kidney disease with heart failure and stage 1 through stage 4 chronic kidney disease, or unspecified chronic kidney disease; N17.9 Acute kidney failure, unspecified; L97.811 Non-pressure chronic ulcer of other part of right lower leg limited to breakdown of skin; I82.431 Acute embolism and thrombosis of right popliteal vein; D63.1 Anemia in chronic kidney disease; E78.5 Hyperlipidemia, unspecified; Z66 Do not resuscitate; W19.XXXA Unspecified fall, initial encounter; Y92.019 Unspecified place in single-family (private) house as the place of occurrence of the external cause; N18.32 Chronic kidney disease, stage 3b; E11.22 Type 2 diabetes mellitus with diabetic chronic kidney disease; M89.8X9 Other specified disorders of bone, unspecified site; I65.29 Occlusion and stenosis of unspecified carotid artery; E11.51 Type 2 diabetes mellitus with diabetic peripheral angiopathy without gangrene; I44.7 Left bundle-branch block, unspecified; E11.42 Type 2 diabetes mellitus with diabetic polyneuropathy; R91.1 Solitary pulmonary nodule; E11.319 Type 2 diabetes mellitus with unspecified diabetic retinopathy without macular edema; R77.8 Other specified abnormalities of plasma proteins; I25.10 Atherosclerotic heart disease of native coronary artery without angina pectoris; E66.9 Obesity, unspecified; Z68.28 Body mass index [BMI] 28.0-28.9, adult; H91.91 Unspecified hearing loss, right ear; H54.7 Unspecified visual loss; E61.1 Iron deficiency; E11.622 Type 2 diabetes mellitus with other skin ulcer; Z88.8 Allergy status to other drugs, medicaments and biological substances; Z86.711 Personal history of pulmonary embolism; Z79.899 Other long term (current) drug therapy; Z79.82 Long term (current) use of aspirin; Z79.4 Long term (current) use of insulin; I25.2 Old myocardial infarction; Z88.1 Allergy status to other antibiotic agents; Z86.14 Personal history of Methicillin resistant Staphylococcus aureus infection; Z89.421 Acquired absence of other right toe(s); Z89.612 Acquired absence of left leg above knee; Z79.01 Long term (current) use of anticoagulants
CPT/HCPCS: 36415; 71046; 76770; 80048; 80053; 82728; 83036; 83540; 83550; 83735; 83880; 84484; 85025; 85610; 85730; 93005; 96374; 99285

== ENCOUNTER 2023-04-16 17:04 | Inpatient (IN) | payer MEDICARE ==
--- NOTE | 2023-04-16 17:14 | ED ---
General Adult HPI - General Stated complaint: Altered Mental Status Time Seen by Provider: 04/16/23 17:06 Source: patient, EMS, RN notes reviewed Mode of arrival: EMS Limitations: altered mental status - History of Present Illness Initial comments: Patient is a pleasant 77-year-old male presenting to the emergency department with change in mental status. Patient started with reported cough yesterday. Patient was noticed to be altered this afternoon. Patient is a poor historian and does not provide history. Majority of history comes from EMS. Patient reportedly had COVID-19 infection as a couple weeks ago. Patient also has history of intercranial hemorrhage - Related Data Home Medications Medication Instructions Recorded Confirmed Aspirin EC [Ecotrin Low Dose] 81 mg PO DAILY@89906/18/19 02/07/23 Multivitamin/Iron/Folic Acid 1 tab PO DAILY@89906/18/19 02/07/23 [Centrum Complete Multivit Tab] Sennosides-Docusate Sodium 1 tab PO DAILY@89906/18/19 02/07/23 [Senokot-S] hydrALAZINE HCL [Apresoline] 100 mg PO TID@0900,1500,2230 06/18/19 02/07/23 Prazosin HCl 4 mg PO TID@0900,1500,2230 09/05/19 02/07/23 Atorvastatin [Lipitor] 40 mg PO HS@222901/27/22 02/07/23 Cholecalciferol (Vitamin D3) 125 mcg PO DAILY@89901/27/22 02/07/23 [Vitamin D3 (125 MCG = 5,000 IU)] Isosorbide Mononitrate ER [Imdur] 60 mg PO DAILY@89901/27/22 02/07/23 Tamsulosin [Flomax] 0.4 mg PO DAILY@199901/27/22 02/07/23 carvediloL [Coreg] 25 mg PO BID@899,199901/27/22 02/07/23 Insulin NPH Hum/Reg Insulin Hm 20 units SQ BID-W/MEALS 11/09/22 02/07/23 [humuLIN 70/30 Kwikpen] Sodium Bicarbonate Tab 650 mg PO BID@899,199911/09/22 02/07/23 calcitrioL [Calcitriol] 0.5 mcg PO MOWEFR@0900 12/23/22 02/07/23 cloNIDine HCL [Catapres] 0.3 mg PO TID@0900,1500,2230 02/07/23 02/07/23 Previous Rx's Medication Instructions Recorded Furosemide [Lasix] 40 mg PO DAILY #30 tab 02/09/23 Rivaroxaban [Xarelto] 20 mg PO HS #30 tab 02/09/23 Allergies Allergy/AdvReac Type Severity Reaction Status Date / Time amlodipine Allergy Anaphylaxis Verified 02/07/23 21:58 lisinopril Allergy tongue Verified 02/07/23 21:58 swelling vancomycin Allergy seizure Verified 02/07/23 21:58 like activity Review of Systems ROS Statement: Those systems with pertinent positive or pertinent negative responses have been documented in the HPI. ROS Other: All systems not noted in ROS Statement are negative. Limitations: ROS unobtainable due to patients medical condition Respiratory: Reports: cough Past Medical History Past Medical History: Heart Failure, Diabetes Mellitus, Deep Vein Thrombosis (DVT), Hyperlipidemia, Hypertension, Syncope Additional Past Medical History / Comment(s): other hx:per pt's "xray noted lung nodules". 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 There are no pets in the home. No service. Patient has lived in [facility] [place], [facility] by [facility]. 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 Patient is moved to this area to be close to his children. No significant history of alcohol or recreational drug use. No international travel. No animal exposures. Smoking Status: Never smoker Past Alcohol Use History: None Reported Additional Past Alcohol Use History / Comment(s): Patient is and lives at home with his . There are no pets in the home. No service. Patient has lived in [facility], [place]. 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 Patient is moved to this area to be close to his children. No significant history of alcohol or recreational drug use. No international travel. No animal exposures. Past Drug Use History: None Reported - Past Family History Father Family Medical History: Deep Vein Thrombosis (DVT) Additional Family Medical History / Comment(s): had valve sx- a week later from complications Mother Family Medical History: Congestive Heart Failure (CHF) Additional Family Medical History / Comment(s): phlebitis General Exam Limitations: altered mental status, physical limitation General appearance: alert, in no apparent distress Head exam: Present: atraumatic Eye exam: Present: normal appearance, PERRL ENT exam: Present: normal oropharynx Neck exam: Present: normal inspection. Absent: tenderness, meningismus Respiratory exam: Present: normal lung sounds bilaterally Cardiovascular Exam: Present: regular rate, normal rhythm GI/Abdominal exam: Present: soft. Absent: tenderness Extremities exam: Present: other (Left AKA) Neurological exam: Present: alert, altered, other (Does not follow commands. No flaccid weakness.) Expanded Neurological exam: Present: protecting the airway Patient oriented to: Present: person. Absent: place, time Eye Response: (4) open spontaneously Motor Response: (5) localizes to pain Verbal Response: (4) confused conversation Psychiatric exam: Present: flat affect Skin exam: Present: normal color Course Vital Signs 04/16/23 04/16/23 17:10 18:41 Pulse Rate 111 H 105 H Respiratory 22 18 Rate Blood Pressure 129/73 138/82 O2 Sat by Pulse 92 L 98 Oximetry - Reevaluation(s) Reevaluation #1: 04/16/23 20:09 There is concern for sepsis diagnosed at 1999. Blood culture and lactic acid and IV antibiotics will be ordered. EKG Findings - EKG Results: EKG: interpreted by ERMD (Left axis. Poor R wave for depression. Lateral biphasic T waves. Inferior Q waves.), sinus rhythm EKG shows: tachycardia Medical Decision Making - Medical Decision Making Was pt. sent in by a medical professional or institution (, PA, REVENUE OFFICER, urgent care, hospital, or senior living...) When possible be specific @ -Patient was sent from nursing facility Did you speak to anyone other than the patient for history (EMS, parent, family, police, friend...)? What history was obtained from this source @ -Family later arrives and helps confirm history Did you review nursing and triage notes (agree or disagree)? Why? @ -I reviewed and agree with nursing and triage notes Were old charts reviewed (outside hosp., previous admission, EMS record, old EKG, old radiological studies, urgent care reports/EKG's, senior living records)? Report findings @ -No old charts were reviewed Differential Diagnosis (chest pain, altered mental status, abdominal pain women, abdominal pain men, vaginal bleeding, weakness, fever, dyspnea, syncope, headache, dizziness, GI bleed, back pain, seizure, CVA, palpatations, mental health)? @ -Differential Altered Mental Status: Hypoglycemia, DKA, hypercapnia, ETOH, overdose, CO poisoning, trauma, myxedema coma, HTN encephalopathy, infection, encephalitis, psychosis, intercranial hemorrhage, hepatic encephalopathy, meningitis, CVA, this is not meant to be an all-inclusive list EKG interpreted by me (3pts min.). @ -As above X-rays interpreted by me (1pt min.). @ -Chest x-ray shows right lower lobe infiltrate CT interpreted by me (1pt min.). @ - U/S interpreted by me (1pt. min.). @ -None done What testing was considered but not performed or refused? (CT, X-rays, U/S, labs)? Why? @ -None What meds were considered but not given or refused? Why? @ -None Did you discuss the management of the patient with other professionals (professionals i.e. , PA, REVENUE OFFICER, lab, RT, psych nurse, social psychologist, drier operator helper, teacher, chief development officer, case management assistant)? Give summary @ -Case was discussed with Dr. Marie, who will admit for Dr. Crockett, who admits for Dr. De Jesus Was smoking cessation discussed for >3mins.? @ -No Was critical care preformed (if so, how long)? @ -32 minutes critical care time Were there social determinants of health that impacted care today? How? (Homelessness, low income, unemployed, alcoholism, drug addiction, transportat ion, low edu. Level, literacy, decrease access to med. care, correction, rehab)? @ -No Was there de-escalation of care discussed even if they declined (Discuss DNR or withdrawal of care, Hospice)? DNR status @ -No What co-morbidities impacted this encounter? (DM, HTN, Smoking, COPD, CAD, Cancer, CVA, ARF, Chemo, Hep., AIDS, mental health diagnosis, sleep apnea, morbid obesity)? @ -None Was patient admitted / discharged? Hospital course, mention meds given and route, prescriptions, significant lab abnormalities, going to OR and other pertinent info. @ -Patient reevaluated. Patient and family are updated on results and plan. Patient will be admitted per patient will need IV fluids and consult with cardiology. Undiagnosed new problem with uncertain prognosis? @ -No Drug Therapy requiring intensive monitoring for toxicity (Heparin, Nitro, Insulin, Cardizem)? @ -No Were any procedures done? @ -No Diagnosis/symptom? @ -Pneumonia, altered mental status, sepsis Acute, or Chronic, or Acute on Chronic? @ -Acute, acute, acute Uncomplicated (without systemic symptoms) or Complicated (systemic symptoms)? @ -default Side effects of treatment? @ -No Exacerbation, Progression, or Severe Exacerbation? @ -No Poses a threat to life or bodily function? How? (Chest pain, [place], [place], pneumonia, PE, COPD, DKA, ARF, appy, cholecystitis, CVA, Diverticulitis, Homicidal, Suicidal, threat to staff... and all critical care pts) @ -No - Lab Data Result diagrams: 04/16/23 17:59 04/16/23 17:59 Lab Results 04/16/23 04/16/23 04/16/23 Range/Units 17:59 17:59 17:59 WBC 18.1 H (3.8-10.6) k/uL RBC 5.31 (4.30-5.90) m/uL Hgb 13.5 (13.0-17.5) gm/dL Hct 43.0 (39.0-53.0) % MCV 81.0 (80.0-100.0) fL MCH 25.5 (25.0-35.0) pg MCHC 31.5 (31.0-37.0) g/dL RDW 18.3 H (11.5-15.5) % Plt Count 282 (150-450) k/uL MPV 8.5 Neutrophils % 93 % Lymphocytes % 3 % Monocytes % 3 % Eosinophils % 0 % Basophils % 0 % Neutrophils # 16.9 H (1.3-7.7) k/uL Lymphocytes # 0.5 L (1.0-4.8) k/uL Monocytes # 0.5 (0-1.0) k/uL Eosinophils # 0.0 (0-0.7) k/uL Basophils # 0.0 (0-0.2) k/uL Hypochromasia Slight Anisocytosis Slight Microcytosis Slight PT 11.2 (9.0-12.0) sec INR 1.1 (<1.2) APTT 29.5 (22.0-30.0) sec Sodium 143 (137-145) mmol/L Potassium 3.8 (3.5-5.1) mmol/L Chloride 103 (98-107) mmol/L Carbon Dioxide 25 (22-30) mmol/L Anion Gap 15 mmol/L BUN 53 H (9-20) mg/dL Creatinine 3.20 H (0.66-1.25) mg/dL Est GFR (CKD-EPI)AfAm 21 (>60 ml/min/1.73 sqM) Est GFR (CKD-EPI)NonAf 18 (>60 ml/min/1.73 sqM) Glucose 171 H (74-99) mg/dL Calcium 10.0 (8.4-10.2) mg/dL Total Bilirubin 1.0 (0.2-1.3) mg/dL AST 39 (17-59) U/L ALT 25 (4-49) U/L Alkaline Phosphatase 117 (38-126) U/L Troponin I (0.000-0.034) ng/mL NT-Pro-B Natriuret Pep pg/mL Total Protein 6.7 (6.3-8.2) g/dL Albumin 3.9 (3.5-5.0) g/dL Urine Color Urine Appearance (Clear) Urine pH (5.0-8.0) Ur Specific [place] (1.001-1.035) Urine Protein (Negative) Urine Glucose (UA) (Negative) Urine Ketones (Negative) Urine Blood (Negative) Urine Nitrite (Negative) Urine Bilirubin (Negative) Urine Urobilinogen (<2.0) mg/dL Ur Leukocyte Esterase (Negative) Urine RBC (0-5) /hpf Urine WBC (0-5) /hpf Ur Squamous Epith Cells (0-4) /hpf Urine Bacteria (None) /hpf Urine Mucus (None) /hpf 04/16/23 04/16/23 04/16/23 Range/Units 17:59 17:59 19:07 WBC (3.8-10.6) k/uL RBC (4.30-5.90) m/uL Hgb (13.0-17.5) gm/dL Hct (39.0-53.0) % MCV (80.0-100.0) fL MCH (25.0-35.0) pg MCHC (31.0-37.0) g/dL RDW (11.5-15.5) % Plt Count (150-450) k/uL MPV Neutrophils % % Lymphocytes % % Monocytes % % Eosinophils % % Basophils % % Neutrophils # (1.3-7.7) k/uL Lymphocytes # (1.0-4.8) k/uL Monocytes # (0-1.0) k/uL Eosinophils # (0-0.7) k/uL Basophils # (0-0.2) k/uL Hypochromasia Anisocytosis Microcytosis PT (9.0-12.0) sec INR (<1.2) APTT (22.0-30.0) sec Sodium (137-145) mmol/L Potassium (3.5-5.1) mmol/L Chloride (98-107) mmol/L Carbon Dioxide (22-30) mmol/L Anion Gap mmol/L BUN (9-20) mg/dL Creatinine (0.66-1.25) mg/dL Est GFR (CKD-EPI)AfAm (>60 ml/min/1.73 sqM) Est GFR (CKD-EPI)NonAf (>60 ml/min/1.73 sqM) Glucose (74-99) mg/dL Calcium (8.4-10.2) mg/dL Total Bilirubin (0.2-1.3) mg/dL AST (17-59) U/L ALT (4-49) U/L Alkaline Phosphatase (38-126) U/L Troponin I 0.175 H* (0.000-0.034) ng/mL NT-Pro-B Natriuret Pep 26154 pg/mL Total Protein (6.3-8.2) g/dL Albumin (3.5-5.0) g/dL Urine Color Yellow Urine Appearance Cloudy (Clear) Urine pH 5.0 (5.0-8.0) Ur Specific [place] 1.018 (1.001-1.035) Urine Protein 1+ H (Negative) Urine Glucose (UA) 4+ H (Negative) Urine Ketones Trace H (Negative) Urine Blood Negative (Negative) Urine Nitrite Negative (Negative) Urine Bilirubin Negative (Negative) Urine Urobilinogen 2.0 (<2.0) mg/dL Ur Leukocyte Esterase Negative (Negative) Urine RBC 5 (0-5) /hpf Urine WBC 3 (0-5) /hpf Ur Squamous Epith Cells 1 (0-4) /hpf Urine Bacteria Rare H (None) /hpf Urine Mucus Rare H (None) /hpf Critical Care Time Critical Care Time: Yes Total Critical Care Time: 32 Disposition Clinical Impression: Pneumonia, Sepsis, Altered mental status Disposition: ADMITTED IP TO THIS HOSP Condition: Serious Is patient prescribed a controlled substance at d/c from ED?: No Referrals: Jack De Jesus MD [Primary Care Provider] - 1-2 days Time of Disposition: 20:09
[2023-04-16] MEDS ORDERED: ACETAMINOPHEN IV (For NPO) 1,000 MG in EMPTY BAG 1 BAG IVPB STA (17:57)
[2023-04-16 18:28] LABS: Anisocytosis Slight; Basophils % (A) 0 %; Eosinophils % (A) 0 %; HGB 13.5 gm/dL (13.0-17.5); Hypochromasia Slight; Lymphocytes # (A) 0.5 k/uL (1.0-4.8); Lymphocytes % (A) 3 %; MCH 25.5 pg (25.0-35.0); MCHC 31.5 g/dL (31.0-37.0); Mean Platelet Volume 8.5; Microcytosis Slight; Monocytes # (A) 0.5 k/uL (0-1.0); Monocytes % (A) 3 %; Neutrophils # (A) 16.9 k/uL (1.3-7.7); Neutrophils % (A) 93 %; Platelet Count 282 k/uL (150-450); RBC 5.31 m/uL (4.30-5.90); RDW 18.3 % (11.5-15.5); WBC 18.1 k/uL (3.8-10.6)
[2023-04-16 18:40] LABS: Albumin 3.9 g/dL (3.5-5.0); Potassium 3.8 mmol/L (3.5-5.1); Total Protein 6.7 g/dL (6.3-8.2)
[2023-04-16 18:47] LABS: INR 1.1 (<1.2); Partial Thromboplastin Time 29.5 sec (22.0-30.0); Prothrombin Time 11.2 sec (9.0-12.0)
--- NOTE | 2023-04-16 19:26 | XR ---
EXAMINATION TYPE: XR chest 2V DATE OF EXAM: 04/16/2023 6:36 PM COMPARISON: Chest x-ray 02/07/2023 TECHNIQUE: XR chest 2V . CLINICAL INDICATION:Male, 77 years old with history of altered mental status; FINDINGS: Lungs/Pleura: Low lung volumes secondary to shallow and duration. Hazy appearance of the right lower lobe and central perihilar region. No pneumothorax or pleural effusion. The left lung is clear. Pulmonary vascularity: Unremarkable. Heart/mediastinum: Cardiomediastinal silhouette is unremarkable. Musculoskeletal: Multiple level degenerative disc disease changes seen throughout the spine. IMPRESSION: Right lower lobe airspace opacity concerning for acute infectious process such as pneumonia.
[2023-04-16 19:40] LABS: Appearance,Urine Cloudy (Clear); Bacteria,Urine Rare /hpf; Bilirubin,Urine Negative (Negative); Blood,Urine Negative (Negative); Color,Urine Yellow; Glucose,Urine (UA) 4+ (Negative); Ketones,Urine Trace (Negative); Leukocyte Esterase,Urine Negative (Negative); Mucus,Urine Rare /hpf; Nitrite,Urine Negative (Negative); Protein,Urine 1+ (Negative); RBC,Urine 5 /hpf (0-5); Specific Gravity,Urine 1.018 (1.001-1.035); Squamous Epithelial Cell,Urine 1 /hpf (0-4); WBC,Urine 3 /hpf (0-5)
[2023-04-16] MEDS ORDERED: PNEUMONIA PROTOCOL UTILIZED 1 EACH MISC PO PRN (20:10)
[2023-04-16] MEDS ORDERED: AZITHROMYCIN 500 MG in SODIUM CHLORIDE 0.9% 250 ML IVPB STA (20:10)
[2023-04-16] MEDS ORDERED: IPRATROPIUM-ALBUTEROL 3 ML NEB INHALATION PRN ×2 (20:10→22:46)
[2023-04-16] MEDS: SODIUM CHLORIDE 0.9% 1,000 ML IV SCH (20:32)
--- NOTE | 2023-04-16 21:05 | CT ---
EXAMINATION TYPE: CT brain wo con CT DLP: 1158.4 mGycm, Automated exposure control for dose reduction was used. DATE OF EXAM: 04/16/2023 8:06 PM COMPARISON: CT brain 05/04/2022. CLINICAL INDICATION:Male, 77 years old with history of Altered mental status, AMS TECHNIQUE: Brain: Axial CT images of the brain were obtained with coronal and sagittal reformats created and rev iewed. Contrast used: None. Oral contrast used: None. FINDINGS: Brain: Extra-axial spaces: No abnormal extra-axial fluid collections. Ventricular system: Dilatation in proportion to cerebral atrophy. Cerebral parenchyma: Cerebral atrophy. No acute intraparenchymal hemorrhage or mass effect. [place] tration of remote lacunar injuries affecting the right frontal lobe and right basal ganglia. Remote i njury involving the left occipital lobe. The remaining ambrocio-white matter demonstrates normal differen tiation. Cerebellum: Unremarkable. Mass effect: No evidence of midline shift. Intracranial vasculature: Atherosclerotic calcifications of the intracranial vessels. Soft tissues: Normal. Calvarium/osseous structures: No depressed skull fracture. Paranasal sinuses and mastoid air cells: Mild scattered paranasal sinus disease.. Mastoid air cells a re Clear Visualized orbits: Bilateral aphakia IMPRESSION: 1. No acute intracranial process. 2. Remote lacunar injuries along with nonspecific white matter changes likely secondary to chronic mi croangiopathy.
[2023-04-16] MEDS: RIVAROXABAN 20 MG TAB PO SCH (23:47)
[2023-04-17] MEDS: carvediloL 12.5 MG TAB PO SCH ×2 (05:51→16:58)
[2023-04-17] MEDS: SODIUM CHLORIDE 0.9% 1,000 ML IV SCH ×3 (05:53→22:44)
[2023-04-17 06:07] LABS: Glucose,Whole Blood 159 mg/dL (70-110)
--- NOTE | 2023-04-17 07:33 | XR ---
EXAMINATION TYPE: XR chest 1V portable DATE OF EXAM: 04/17/2023 5:59 AM COMPARISON: Chest radiographs from 04/16/2023 TECHNIQUE: XR chest 1V portable Frontal view of the chest. CLINICAL INDICATION:Male, 77 years old with history of pneumonia; FINDINGS: Lungs/Pleura: Persistent right medial lower lung airspace opacities. There is no evidence of pleural effusion, focal consolidation, or pneumothorax. Pulmonary vascularity: Unremarkable. Heart/mediastinum: Cardiomediastinal silhouette is unremarkable. Musculoskeletal: No acute osseous pathology. IMPRESSION: Persistent right lower lung airspace opacities. No significant change from prior given differences in technique.
[2023-04-17] MEDS: hydrALAZINE HCL 50 MG TAB PO SCH ×3 (08:59→22:44)
[2023-04-17] MEDS: cloNIDine HCL 0.1 MG TAB PO SCH ×3 (08:59→22:44)
[2023-04-17] MEDS: ISOSORBIDE MONONITRATE ER 60 MG TAB.ER.24H PO SCH (09:00)
[2023-04-17] MEDS: AZITHROMYCIN 500 MG TAB PO SCH (09:03)
[2023-04-17] MEDS: ASCORBIC ACID 500 MG TAB PO SCH (09:03)
[2023-04-17] MEDS: FUROSEMIDE 40 MG TAB PO SCH (09:03)
[2023-04-17] MEDS: CHOLECALCIFEROL 25 MCG (1000 IU) TABLET PO SCH (09:03)
[2023-04-17] MEDS: CHOLECALCIFEROL 125 MCG (5000 IU) TABLET PO SCH (09:03)
[2023-04-17] MEDS: LACTULOSE 20 GM/30 ML CUP PO SCH ×2 (09:04→22:44)
[2023-04-17] MEDS: ASPIRIN 81 MG PO SCH (09:04)
[2023-04-17] MEDS: SENNOSIDES-DOCUSATE SODIUM 1 EACH TAB PO SCH (09:04)
[2023-04-17] MEDS: FERROUS SULFATE 325 MG TAB PO SCH ×2 (09:04→22:45)
[2023-04-17] MEDS: MULTIVITAMINS, THERA 1 EACH TAB PO SCH (09:04)
[2023-04-17 09:05] LABS: Glucose,Whole Blood 159 mg/dL (70-110)
[2023-04-17] MEDS: PRAZOSIN 1 MG CAP PO SCH ×3 (09:06→22:43)
[2023-04-17] MEDS: DAPAGLIFLOZIN PROPANEDIOL 5 MG TABLET PO SCH (09:10)
[2023-04-17 11:33] LABS: Glucose,Whole Blood 253 mg/dL (70-110)
[2023-04-17] MEDS: INSULN ASP PRT/INSULIN ASPART 100 UNIT/ML 10 ML VIAL SQ SCH ×2 (11:52→16:58)
--- NOTE | 2023-04-17 11:54 | P.CRDCN ---
History of Present Illness Consult date: 04/17/23 Chief complaint: Elevated troponin History of present illness: This is Vishal Vargas NP, I'm dictating on behalf of Dr. Cai's H&P and A&P The patient was interviewed and examined. HPI: Patient is a 77-year-old male who was sent to the hospital from a long-term care facility for complaints of cough, shortness of breath, and change in mental status. Patient is at bedrest and on 2, and is unable to provide significant history. Most of the HPI is taken from emergency department notes. Patient reportedly had COVID-19 infection approximately 2 weeks ago. He has a history of intracranial hemorrhage. He started having a cough yesterday, with subsequent altered mental status different from baseline. This is the reason the patient was sent to the hospital for evaluation. Patient has a pertinent past medical history that includes heart failure, diabetes, DVT, hyperlipidemia, hypertension, and syncope. 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 Patient had a chest x-ray completed in the emergency department which showed right lower lobe pneumonia. Patient also had elevated troponin. EKG showed sinus tachycardia with no significant ST or T- wave abnormalities. ROS: [No fever, chills, or rigors] [Positive cough, no phlegm, or expectoration] [no nausea, vomiting, or diarrhea] [no hematuria, dysuria] [no musculoskelatal complaints] [no strokes or seizures] [no skin lesions] EXAMINATION: Deferred due to suspected COVID-19 infection REVIEW OF LABS, ECG & MEDICAL DATA: LABS: White count 18.1, hemoglobin 13.5, platelets 282, sodium 143, potassium 3.8, chloride 103, B1 53, creatinine 3.2, troponin 0.175, BNP 17,000 EKG: Sinus tachycardia IMAGING: Chest x-ray dated 04/16/2023 demonstrates right lower lobe airspace opacity concerning for acute infectious process such as pneumonia. CT of the brain without contrast dated 04/16/2023 demonstrates no acute intracranial process, remote lacunar injuries along with nonspecific white matter changes likely secondary to chronic microangiopathy. VITALS: Temp 98.3, pulse 88, respirations 17, blood pressure 186/94, O2 saturation 96% on 2 L IMPRESSION: 1. Right lower lobe pneumonia 2. Elevated troponin, likely secondary to demand ischemia 3. Hypertension 4. Acute kidney injury 5. Possible sepsis PLAN: Continue home cardiac medications. No changes to cardiac regimen at this time. Internal medicine to manage pneumonia. Further recommendations based on patient's clinical course. Thank you for the consult and allowing us to participate in the care of this patient. 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, Left AKA; Rfoot 3rd toe amputated, Bypass in Bilat legs, eulogio knee sx(cartilage). Total facial plastic sx and grafting done area under eye d/t injury, Past Anesthesia/Blood Transfusion Reactions: Postoperative Nausea & Vomiting (PONV) Additional Past Anesthesia/Blood Transfusion Reaction / Comment(s): never recieved blood Smoking Status: Never smoker - Past Family History Father Family Medical History: Deep Vein Thrombosis (DVT) Additional Family Medical History / Comment(s): had valve sx- a week later from complications Mother Family Medical History: Congestive Heart Failure (CHF) Additional Family Medical History / Comment(s): phlebitis Medications and Allergies Home Medications Medication Instructions Recorded Confirmed Type Aspirin EC [Ecotrin Low Dose] 81 mg PO DAILY 06/18/19 04/16/23 History Sennosides-Docusate Sodium 1 tab PO DAILY 06/18/19 04/16/23 History [Senokot-S] hydrALAZINE HCL [Apresoline] 100 mg PO TID@0900,1500,2200 06/18/19 04/16/23 History Prazosin HCl 4 mg PO TID@0900,1500,2230 09/05/19 04/16/23 History Atorvastatin [Lipitor] 40 mg PO HS 01/27/22 04/16/23 History Cholecalciferol (Vitamin D3) 125 mcg PO DAILY 01/27/22 04/16/23 History [Vitamin D3 (125 MCG = 5,000 IU)] Isosorbide Mononitrate ER [Imdur] 60 mg PO DAILY 01/27/22 04/16/23 History Tamsulosin [Flomax] 0.4 mg PO HS 01/27/22 04/16/23 History carvediloL [Coreg] 25 mg PO BID 01/27/22 04/16/23 History Insulin NPH Hum/Reg Insulin Hm 28 units SQ BID@0900,1700 11/09/22 04/16/23 History [humuLIN 70/30 Kwikpen] calcitrioL [Calcitriol] 0.5 mcg PO MOWEFR@0900 12/23/22 04/16/23 History cloNIDine HCL [Catapres] 0.3 mg PO TID@0900,1500,2100 02/07/23 04/16/23 History Furosemide [Lasix] 40 mg PO DAILY #30 tab 02/09/23 04/16/23 Rx Rivaroxaban [Xarelto] 20 mg PO HS #30 tab 02/09/23 04/16/23 Rx Ascorbic Acid [Vitamin C] 500 mg PO DAILY 04/16/23 04/16/23 History Cholecalciferol [Vitamin D3 (25 50 mcg PO DAILY 04/16/23 04/16/23 History Mcg = 1000 Iu)] Dapagliflozin Propanediol [Farxiga] 5 mg PO DAILY 04/16/23 04/16/23 History Ferrous Sulfate [Feosol] 325 mg PO BID 04/16/23 04/16/23 History Ipratropium-Albuterol Nebulize 3 ml INHALATION RT-QID PRN 04/16/23 04/16/23 History [Duoneb 0.5 mg-3 mg/3 ml Soln] Lactose-Reduced Food [Ensure Plus] 240 ml PO DAILY 04/16/23 04/16/23 History Lactulose [Constulose] 10 gm PO Q12HR 04/16/23 04/16/23 History Multivitamins, Thera [Multivitamin 1 tab PO DAILY 04/16/23 04/16/23 History (formulary)] Zinc Gluconate [Zinc] 50 mg PO DAILY 04/16/23 04/16/23 History Allergies Allergy/AdvReac Type Severity Reaction Status Date / Time amlodipine Allergy Anaphylaxis Verified 04/16/23 20:41 lisinopril Allergy tongue Verified 04/16/23 20:41 swelling vancomycin Allergy seizure Verified 04/16/23 20:41 like activity Physical Exam Vitals: Vital Signs Temp Pulse Pulse Resp BP BP Pulse Ox 04/17/23 09:11 98 04/17/23 08:00 98.3 F 88 17 186/94 96 04/17/23 04:00 98.9 F 97 19 165/77 95 04/17/23 02:00 101 H 20 04/16/23 22:49 99.0 F 99 20 130/70 96 04/16/23 21:00 98.5 F 107 H 20 139/82 95 04/16/23 20:00 103 H 18 120/78 97 04/16/23 18:41 105 H 18 138/82 98 04/16/23 17:10 111 H 22 129/73 92 L Intake and Output 04/16/23 04/17/23 04/17/23 22:59 06:59 14:59 Intake Total 560 Output Total 200 Balance 560 -200 Intake: IV 260 Sodium Chloride 0.9% 1, 260 000 ml @ 130 mls/hr IV . Q7H42M [facility] Rx#:[id number] Intake, IV Titration 300 Amount Azithromycin 500 mg In 250 Sodium Chloride 0.9% 250 ml @ 250 mls/hr IVPB ONCE [facility] Rx#:[id number] cefTRIAXone 2 gm In 50 Sodium Chloride 0.9% 50 ml @ 100 mls/hr IVPB Q24HR [facility] Rx#:[id number] Output: Urine 200 Other: Voiding Method Diaper Incontinent External Catheter # Voids 2 Weight 99.79 kg 87.5 kg Results 04/16/23 17:59 04/16/23 17:59 Cardiac Enzymes 04/16/23 04/16/23 Range/Units 17:59 17:59 AST 39 (17-59) U/L Troponin I 0.175 H* (0.000-0.034) ng/mL Coagulation 04/16/23 Range/Units 17:59 PT 11.2 (9.0-12.0) sec APTT 29.5 (22.0-30.0) sec CBC 04/16/23 Range/Units 17:59 WBC 18.1 H (3.8-10.6) k/uL RBC 5.31 (4.30-5.90) m/uL Hgb 13.5 (13.0-17.5) gm/dL Hct 43.0 (39.0-53.0) % Plt Count 282 (150-450) k/uL Comprehensive Metabolic Panel 04/16/23 Range/Units 17:59 Sodium 143 (137-145) mmol/L Potassium 3.8 (3.5-5.1) mmol/L Chloride 103 (98-107) mmol/L Carbon Dioxide 25 (22-30) mmol/L BUN 53 H (9-20) mg/dL Creatinine 3.20 H (0.66-1.25) mg/dL Glucose 171 H (74-99) mg/dL Calcium 10.0 (8.4-10.2) mg/dL AST 39 (17-59) U/L ALT 25 (4-49) U/L Alkaline Phosphatase 117 (38-126) U/L Total Protein 6.7 (6.3-8.2) g/dL Albumin 3.9 (3.5-5.0) g/dL Current Medications Generic Name Dose Route Start Last Admin Trade Name Freq PRN Reason Stop Dose Admin Albuterol/Ipratropium 3 ml 04/16/23 20:10 Ipratropium-Albuterol 3 Ml Neb INHALATION RT-Q4H PRN shortness of breath Albuterol/Ipratropium 3 ml 04/16/23 22:46 Ipratropium-Albuterol 3 Ml Neb INHALATION RT-QID PRN Shortness Of Breath Ascorbic Acid 500 mg 04/17/23 09:00 04/17/23 09:03 Ascorbic Acid 500 Mg Tab PO 500 mg DAILY [facility] Administration Aspirin 81 mg 04/17/23 09:00 04/17/23 09:04 Aspirin 81 Mg PO 81 mg DAILY [facility] Administration Atorvastatin Calcium 40 mg 04/17/23 21:00 Atorvastatin 40 Mg Tab PO HS [facility] Azithromycin 500 mg 04/17/23 09:00 04/17/23 09:03 Azithromycin 500 Mg Tab PO 04/18/23 09:01 500 mg DAILY [facility] Administration Protocol Calcitriol 0.5 mcg 04/18/23 09:00 Calcitriol 0.25 Mcg Cap PO MOWEFR@0900 [facility] Carvedilol 25 mg 04/17/23 07:30 04/17/23 05:51 Carvedilol 12.5 Mg Tab PO Not Given BID-W/MEALS [facility] Cholecalciferol 50 mcg 04/17/23 09:00 04/17/23 09:03 Cholecalciferol 25 Mcg (1000 Iu) Tablet PO 50 mcg DAILY [facility] Administration Cholecalciferol 125 mcg 04/17/23 09:00 04/17/23 09:03 Cholecalciferol 125 Mcg (5000 Iu) Tablet PO 125 mcg DAILY [facility] Administration Clonidine 0.3 mg 04/17/23 09:00 04/17/23 08:59 Clonidine Hcl 0.1 Mg Tab PO 0.3 mg TID@0900,1500,2100 [facility] Administration Dapagliflozin 5 mg 04/17/23 09:00 04/17/23 09:10 Dapagliflozin Propanediol 5 Mg Tablet PO 5 mg DAILY [facility] Administration Ferrous Sulfate 325 mg 04/17/23 09:00 04/17/23 09:04 Ferrous Sulfate 325 Mg Tab PO 325 mg BID [facility] Administration Furosemide 40 mg 04/17/23 09:00 04/17/23 09:03 Furosemide 40 Mg Tab PO 40 mg DAILY [facility] Administration Hydralazine HCl 100 mg 04/17/23 09:00 04/17/23 08:59 Hydralazine Hcl 50 Mg Tab PO 100 mg TID@0900,1500,2200 [facility] Administration Sodium Chloride 1,000 mls @ 130 mls/hr 04/16/23 20:15 04/17/23 05:53 Saline 0.9% IV Not Given .Q7H42M [facility] Ceftriaxone Sodium 2 gm/ 50 mls @ 100 mls/hr 04/17/23 09:00 04/17/23 09:03 Sodium Chloride IVPB 04/20/23 09:29 100 mls/hr Q24HR [facility] Administration Protocol Insulin Aspart 28 unit 04/17/23 09:00 Insuln Asp Prt/Insulin Aspart 100 Unit/Ml 10 Ml Vial SQ BID@0900,1700 [facility] Isosorbide Mononitrate 60 mg 04/17/23 09:00 04/17/23 09:00 Isosorbide Mononitrate Er 60 Mg Tab.Er.24h PO 60 mg DAILY [facility] Administration Lactulose 10 gm 04/17/23 09:00 04/17/23 09:04 Lactulose 20 Gm/30 Ml Cup PO 10 gm Q12HR [facility] Administration Miscellaneous Information 1 each 04/16/23 20:10 Pneumonia Protocol Utilized 1 Each Misc PO ONCE PRN Per Protocol Multivitamins 1 each 04/17/23 09:00 04/17/23 09:04 Multivitamins, Thera 1 Each Tab PO 1 each DAILY [facility] Administration Prazosin HCl 4 mg 04/17/23 09:00 04/17/23 09:06 Prazosin 1 Mg Cap PO 4 mg TID@0900,1500,2230 [facility] Administration Rivaroxaban 20 mg 04/16/23 23:00 04/16/23 23:47 Rivaroxaban 20 Mg Tab PO Not Given HS [facility] Protocol Senna/Docusate Sodium 1 each 04/17/23 09:00 04/17/23 09:04 Sennosides-Docusate Sodium 1 Each Tab PO 1 each DAILY [facility] Administration Intake and Output 04/16/23 04/17/23 04/17/23 22:59 06:59 14:59 Intake Total 560 Output Total 200 Balance 560 -200 Intake: IV 260 Sodium Chloride 0.9% 1, 260 000 ml @ 130 mls/hr IV . Q7H42M [facility] Rx#:[id number] Intake, IV Titration 300 Amount Azithromycin 500 mg In 250 Sodium Chloride 0.9% 250 ml @ 250 mls/hr IVPB ONCE [facility] Rx#:[id number] cefTRIAXone 2 gm In 50 Sodium Chloride 0.9% 50 ml @ 100 mls/hr IVPB Q24HR [facility] Rx#:[id number] Output: Urine 200 Other: Voiding Method Diaper Incontinent External Catheter # Voids 2 Weight 99.79 kg 87.5 kg 04/16/23 17:59 04/16/23 17:59
[2023-04-17 12:30] VITALS: BMI 26.2
[2023-04-17 13:18] LABS: Anisocytosis Slight; Basophils % (A) 0 %; Eosinophils # (A) 0.1 k/uL (0-0.7); Eosinophils % (A) 1 %; HCT 37.4 % (39.0-53.0); HGB 11.8 gm/dL (13.0-17.5); Hypochromasia Moderate; Lymphocytes # (A) 0.5 k/uL (1.0-4.8); Lymphocytes % (A) 4 %; MCH 26.3 pg (25.0-35.0); MCHC 31.4 g/dL (31.0-37.0); MCV 83.6 fL (80.0-100.0); Mean Platelet Volume 7.6; Microcytosis Slight; Monocytes # (A) 0.4 k/uL (0-1.0); Monocytes % (A) 3 %; Neutrophils # (A) 11.9 k/uL (1.3-7.7); Neutrophils % (A) 92 %; Platelet Count 223 k/uL (150-450); RBC 4.47 m/uL (4.30-5.90); RDW 18.6 % (11.5-15.5)
[2023-04-17 13:36] LABS: Calcium 8.8 mg/dL (8.4-10.2); Potassium 3.6 mmol/L (3.5-5.1)
[2023-04-17 16:42] LABS: Glucose,Whole Blood 161 mg/dL (70-110)
--- NOTE | 2023-04-17 16:48 | P.HPIM ---
History of Present Illness H&P Date: 04/16/23 Chief Complaint: Altered mental status 77-year-old male presenting to the emergency department with change in mental status. Patient started with reported cough yesterday. Patient was noticed to be altered this afternoon. Patient is a poor historian and does not provide h istory. Majority of history comes from EMS. Patient reportedly had COVID-19 infection approximately 2 weeks ago. He has a history of intracranial hemorrhage. He started having a cough yesterday, with subsequent altered mental status different from baseline. This is the reason the patient was sent to the hospital for evaluation. Patient has a pertinent past medical history that includes heart failure, diabetes, DVT, hyperlipidemia, hypertension, and syncope. 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 Patient had a chest x-ray completed in the emergency department which showed right lower lobe pneumonia. Patient also had elevated troponin. EKG showed sinus tachycardia with no significant ST or T- wave abnormalities. LABS: White count 18.1, hemoglobin 13.5, platelets 282, sodium 143, potassium 3.8, chloride 103, B1 53, creatinine 3.2, troponin 0.175, BNP 17,000 Review of Systems ROS unobtainable: due to mental status Past Medical History Past Medical History: Heart Failure, Diabetes Mellitus, Deep Vein Thrombosis (DVT), Hyperlipidemia, Hypertension, Syncope Additional Past Medical History / Comment(s): other hx:per pt's "xray noted lung nodules". 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, L foot gr toe, 3rd &2nd toe amputated; Rfoot 3rd toe amputated, Bypass in Bilat legs, eulogio knee sx(cartilage), lt arm picc line.since removed, x3 sx total facial plastic sx and grafting done area under lt eye d/t injury, Ackerman placement.-rt upper chest/removed Past Anesthesia/Blood Transfusion Reactions: Postoperative Nausea & Vomiting (PONV) Additional Past Anesthesia/Blood Transfusion Reaction / Comment(s): never recieved blood Past Psychological History: No Psychological Hx Reported Additional Psychological History / Comment(s): Patient is and lives at home with his . There are no pets in the home. No service. Patient has lived in [facility] [facility]. 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 Patient is moved to this area to be close to his children. No significant history of alcohol or recreational drug use. No international travel. No animal exposures. Smoking Status: Never smoker Past Alcohol Use History: None Reported Additional Past Alcohol Use History / Comment(s): Patient is and lives at home with his . There are no pets in the home. No service. Patient has lived in [facility] [facility]. 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 Patient is moved to this area to be close to his children. No significant history of alcohol or recreational drug use. No international travel. No animal exposures. Past Drug Use History: None Reported - Past Family History Father Family Medical History: Deep Vein Thrombosis (DVT) Additional Family Medical History / Comment(s): had valve sx- a week later from complications Mother Family Medical History: Congestive Heart Failure (CHF) Additional Family Medical History / Comment(s): phlebitis Medications and Allergies Home Medications Medication Instructions Recorded Confirmed Type Aspirin EC [Ecotrin Low Dose] 81 mg PO DAILY 06/18/19 04/16/23 History Sennosides-Docusate Sodium 1 tab PO DAILY 06/18/19 04/16/23 History [Senokot-S] hydrALAZINE HCL [Apresoline] 100 mg PO TID@0900,1500,2200 06/18/19 04/16/23 History Prazosin HCl 4 mg PO TID@0900,1500,2230 09/05/19 04/16/23 History Atorvastatin [Lipitor] 40 mg PO HS 01/27/22 04/16/23 History Cholecalciferol (Vitamin D3) 125 mcg PO DAILY 01/27/22 04/16/23 History [Vitamin D3 (125 MCG = 5,000 IU)] Isosorbide Mononitrate ER [Imdur] 60 mg PO DAILY 01/27/22 04/16/23 History Tamsulosin [Flomax] 0.4 mg PO HS 01/27/22 04/16/23 History carvediloL [Coreg] 25 mg PO BID 01/27/22 04/16/23 History Insulin NPH Hum/Reg Insulin Hm 28 units SQ BID@0900,1700 11/09/22 04/16/23 History [humuLIN 70/30 Kwikpen] calcitrioL [Calcitriol] 0.5 mcg PO MOWEFR@0900 12/23/22 04/16/23 History cloNIDine HCL [Catapres] 0.3 mg PO TID@0900,1500,2100 02/07/23 04/16/23 History Furosemide [Lasix] 40 mg PO DAILY #30 tab 02/09/23 04/16/23 Rx Rivaroxaban [Xarelto] 20 mg PO HS #30 tab 02/09/23 04/16/23 Rx Ascorbic Acid [Vitamin C] 500 mg PO DAILY 04/16/23 04/16/23 History Cholecalciferol [Vitamin D3 (25 50 mcg PO DAILY 04/16/23 04/16/23 History Mcg = 1000 Iu)] Dapagliflozin Propanediol [Farxiga] 5 mg PO DAILY 04/16/23 04/16/23 History Ferrous Sulfate [Feosol] 325 mg PO BID 04/16/23 04/16/23 History Ipratropium-Albuterol Nebulize 3 ml INHALATION RT-QID PRN 04/16/23 04/16/23 His tory [Duoneb 0.5 mg-3 mg/3 ml Soln] Lactose-Reduced Food [Ensure Plus] 240 ml PO DAILY 04/16/23 04/16/23 History Lactulose [Constulose] 10 gm PO Q12HR 04/16/23 04/16/23 History Multivitamins, Thera [Multivitamin 1 tab PO DAILY 04/16/23 04/16/23 History (formulary)] Zinc Gluconate [Zinc] 50 mg PO DAILY 04/16/23 04/16/23 History Allergies Allergy/AdvReac Type Severity Reaction Status Date / Time amlodipine Allergy Anaphylaxis Verified 04/16/23 20:41 lisinopril Allergy tongue Verified 04/16/23 20:41 swelling vancomycin Allergy seizure Verified 04/16/23 20:41 like activity Physical Exam Vitals: Vital Signs Pulse Resp BP Pulse Ox 04/16/23 18:41 105 H 18 138/82 98 04/16/23 17:10 111 H 22 129/73 92 L Intake and Output 04/16/23 04/16/23 04/16/23 06:59 14:59 22:59 Other: Weight 99.79 kg - Constitutional General appearance: Present: average body habitus, cooperative, no acute distress - EENT Eyes: Present: anicteric sclerae, EOMI, PERRLA, normal appearance ENT: Present: hearing grossly normal, normal oropharynx Ears: bilateral: normal - Neck Neck: Present: normal ROM. Absent: lymphadenopathy, rigidity, thyromegaly Carotids: negative: bruit present Thyroid: bilateral: normal size, negative: enlarged, nodule - Respiratory Respiratory: bilateral: CTA, negative: rales, rhonchi, wheezing - Cardiovascular Rhythm: regular Heart sounds: normal: S1, S2 Abnormal Heart Sounds: Absent: systolic murmur, diastolic murmur - Gastrointestinal General gastrointestinal: Present: normal bowel sounds, soft. Absent: distended, organomegaly, tenderness - Genitourinary Genitourinary Comment(s): deferred - Integumentary Integumentary: Present: normal turgor. Absent: jaundiced, rash, ulcer - Neurologic Neurologic: Present: CNII-XII intact. Absent: focal deficits - Musculoskeletal Musculoskeletal: Present: gait normal, strength equal bilaterally - Psychiatric Psychiatric: Present: A&O x's 2 Results CBC & Chem 7: 04/17/23 13:03 04/17/23 13:03 Labs: Abnormal Lab Results - Last 24 Hours (Table) 04/16/23 04/16/23 04/16/23 Range/Units 17:59 17:59 17:59 WBC 18.1 H (3.8-10.6) k/uL RDW 18.3 H (11.5-15.5) % Neutrophils # 16.9 H (1.3-7.7) k/uL Lymphocytes # 0.5 L (1.0-4.8) k/uL BUN 53 H (9-20) mg/dL Creatinine 3.20 H (0.66-1.25) mg/dL Glucose 171 H (74-99) mg/dL Troponin I 0.175 H* (0.000-0.034) ng/mL Urine Protein (Negative) Urine Glucose (UA) (Negative) Urine Ketones (Negative) Urine Bacteria (None) /hpf Urine Mucus (None) /hpf 04/16/23 Range/Units 19:07 WBC (3.8-10.6) k/uL RDW (11.5-15.5) % Neutrophils # (1.3-7.7) k/uL Lymphocytes # (1.0-4.8) k/uL BUN (9-20) mg/dL Creatinine (0.66-1.25) mg/dL Glucose (74-99) mg/dL Troponin I (0.000-0.034) ng/mL Urine Protein 1+ H (Negative) Urine Glucose (UA) 4+ H (Negative) Urine Ketones Trace H (Negative) Urine Bacteria Rare H (None) /hpf Urine Mucus Rare H (None) /hpf Assessment and Plan Assessment: 1. Right lower lobe pneumonia - Chest x-ray shows right lower lobe pneumonia; white blood count is elevated at 18.1 - Patient has been placed on IV Rocephin and azithromycin in ED along with bronchodilator nebulizer treatments - We will obtain blood cultures and sputum cultures and tailor antibiotics accordingly - Consult pulmonary for further recommendations 2. Elevated troponin; likely demand ischemia secondary to pneumonia; initial troponin was elevated at 0.175 - We will monitor EKG and trend troponin; consult cardiology for further recommendations 3. Recent COVID-19 viral infection; specifics regarding time of diagnosis or any subsequent treatment for COVID-19 infection is not available; we will repeat testing 4. Acute renal injury; patient has been placed on IV fluid hydration in form of normal saline at a rate of 75 mL an hour; we will monitor strict CHERELLE's, daily weights, renal function and electrolytes. Avoid nephrotoxins and hypotension - Cautious fluid hydration given elevated BNP 5. Hyperglycemia without acidosis; we will monitor Accu-Cheks before meals and at bedtime with insulin sliding scale; continue with home dose of insulin 7030 28 units twice a day 6. Elevated BNP; patient does not seem to be fluid overloaded; chest x-ray does not show coronary vascular congestion; we will monitor closely and make recommendations accordingly 7. Hypertension; Coreg 25 mg twice a day; clonidine 0.3 mg 3 times a day; Lasix 40 mg daily; hydralazine 100 mg 3 times a day 8. History of DVT; continue with home dose of Xarelto CODE STATUS; full code
--- NOTE | 2023-04-17 16:49 | P.PN ---
Subjective Progress Note Date: 04/17/23 77-year-old male presenting to the emergency department with change in mental status. Patient started with reported cough yesterday. Patient was noticed to be altered this afternoon. Patient is a poor historian and does not provide history. Majority of history comes from EMS. Patient reportedly had COVID-19 infection approximately 2 weeks ago. He has a history of intracranial hemorrhage. He started having a cough yesterday, with subsequent altered mental status different from baseline. This is the reason the patient was sent to the hospital for evaluation. Patient has a pertinent past medical history that includes heart failure, diabetes, DVT, hyperlipidemia, hypertension, and syncope. 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 Patient had a chest x-ray completed in the emergency department which showed right lower lobe pneumonia. Patient also had elevated troponin. EKG showed sinus tachycardia with no significant ST or T- wave abnormalities. LABS: White count 18.1, hemoglobin 13.5, platelets 282, sodium 143, potassium 3.8, chloride 103, B1 53, creatinine 3.2, troponin 0.175, BNP 17,000 Objective - Vital Signs Vital signs: Vital Signs Temp 98.3 F 04/17/23 08:00 Pulse 88 04/17/23 08:00 Resp 17 04/17/23 08:00 BP 186/94 04/17/23 08:00 Pulse Ox 98 04/17/23 09:11 FiO2 Intake & Output 04/16/23 04/17/23 04/17/23 18:59 06:59 18:59 Intake Total 560 Output Total 200 Balance 360 Weight 99.79 kg 87.5 kg 87.5 kg Intake: IV 260 Sodium Chloride 0.9% 1, 260 000 ml @ 130 mls/hr IV . Q7H42M [facility] Rx#:[id number] Intake, IV Titration 300 Amount Azithromycin 500 mg In 250 Sodium Chloride 0.9% 250 ml @ 250 mls/hr IVPB ONCE [facility] Rx#:[id number] cefTRIAXone 2 gm In 50 Sodium Chloride 0.9% 50 ml @ 100 mls/hr IVPB Q24HR [facility] Rx#:[id number] Output: Urine 200 Other: Voiding Method Diaper Incontinent External Catheter # Voids 2 - Exam - Constitutional General appearance: Present: average body habitus, cooperative, no acute distress - EENT Eyes: Present: anicteric sclerae, EOMI, PERRLA, normal appearance ENT: Present: hearing grossly normal, normal oropharynx Ears: bilateral: normal - Neck Neck: Present: normal ROM. Absent: lymphadenopathy, rigidity, thyromegaly Carotids: negative: bruit present Thyroid: bilateral: normal size, negative: enlarged, nodule - Respiratory Respiratory: bilateral: CTA, negative: rales, rhonchi, wheezing - Cardiovascular Rhythm: regular Heart sounds: normal: S1, S2 Abnormal Heart Sounds: Absent: systolic murmur, diastolic murmur - Gastrointestinal General gastrointestinal: Present: normal bowel sounds, soft. Absent: distended, organomegaly, tenderness - Genitourinary Genitourinary Comment(s): deferred - Integumentary Integumentary: Present: normal turgor. Absent: jaundiced, rash, ulcer - Neurologic Neurologic: Present: CNII-XII intact. Absent: focal deficits - Musculoskeletal Musculoskeletal: Present: gait normal, strength equal bilaterally - Psychiatric Psychiatric: Present: A&O x's 3, appropriate affect, intact judgment & insight - Labs CBC & Chem 7: 04/17/23 13:03 04/17/23 13:03 Labs: Abnormal Lab Results - Last 24 Hours (Table) 04/16/23 04/16/23 04/16/23 Range/Units 17:59 17:59 17:59 WBC 18.1 H (3.8-10.6) k/uL RDW 18.3 H (11.5-15.5) % Neutrophils # 16.9 H (1.3-7.7) k/uL Lymphocytes # 0.5 L (1.0-4.8) k/uL BUN 53 H (9-20) mg/dL Creatinine 3.20 H (0.66-1.25) mg/dL Glucose 171 H (74-99) mg/dL POC Glucose (mg/dL) (70-110) mg/dL Troponin I 0.175 H* (0.000-0.034) ng/mL Urine Protein (Negative) Urine Glucose (UA) (Negative) Urine Ketones (Negative) Urine Bacteria (None) /hpf Urine Mucus (None) /hpf 04/16/23 04/17/23 04/17/23 Range/Units 19:07 06:05 09:02 WBC (3.8-10.6) k/uL RDW (11.5-15.5) % Neutrophils # (1.3-7.7) k/uL Lymphocytes # (1.0-4.8) k/uL BUN (9-20) mg/dL Creatinine (0.66-1.25) mg/dL Glucose (74-99) mg/dL POC Glucose (mg/dL) 159 H 159 H (70-110) mg/dL Troponin I (0.000-0.034) ng/mL Urine Protein 1+ H (Negative) Urine Glucose (UA) 4+ H (Negative) Urine Ketones Trace H (Negative) Urine Bacteria Rare H (None) /hpf Urine Mucus Rare H (None) /hpf 04/17/23 Range/Units 11:31 WBC (3.8-10.6) k/uL RDW (11.5-15.5) % Neutrophils # (1.3-7.7) k/uL Lymphocytes # (1.0-4.8) k/uL BUN (9-20) mg/dL Creatinine (0.66-1.25) mg/dL Glucose (74-99) mg/dL POC Glucose (mg/dL) 253 H (70-110) mg/dL Troponin I (0.000-0.034) ng/mL Urine Protein (Negative) Urine Glucose (UA) (Negative) Urine Ketones (Negative) Urine Bacteria (None) /hpf Urine Mucus (None) /hpf Assessment and Plan Assessment: 1. Right lower lobe pneumonia - Chest x-ray shows right lower lobe pneumonia; white blood count is elevated at 18.1 - Patient has been placed on IV Rocephin and azithromycin in ED along with bronchodilator nebulizer treatments - We will obtain blood cultures and sputum cultures and tailor antibiotics accordingly - Consult pulmonary for further recommendations 2. Elevated troponin; likely demand ischemia secondary to pneumonia; initial troponin was elevated at 0.175 - We will monitor EKG and trend troponin; consult cardiology for further recommendations 3. Recent COVID-19 viral infection; specifics regarding time of diagnosis or any subsequent treatment for COVID-19 infection is not available; we will repeat testing 4. Acute renal injury; patient has been placed on IV fluid hydration in form of normal saline at a rate of 75 mL an hour; we will monitor strict CHERELLE's, daily weights, renal function and electrolytes. Avoid nephrotoxins and hypotension - Cautious fluid hydration given elevated BNP 5. Hyperglycemia without acidosis; we will monitor Accu-Cheks before meals and at bedtime with insulin sliding scale; continue with home dose of insulin 7030 28 units twice a day 6. Elevated BNP; patient does not seem to be fluid overloaded; chest x-ray does not show coronary vascular congestion; we will monitor closely and make recommendations accordingly 7. Hypertension; Coreg 25 mg twice a day; clonidine 0.3 mg 3 times a day; Lasix 40 mg daily; hydralazine 100 mg 3 times a day 8. History of DVT; continue with home dose of Xarelto CODE STATUS; full code
[2023-04-17 20:07] LABS: Glucose,Whole Blood 176 mg/dL (70-110)
[2023-04-17] MEDS: RIVAROXABAN 20 MG TAB PO SCH (22:43)
[2023-04-17] MEDS: ATORVASTATIN 40 MG TAB PO SCH (22:44)
--- NOTE | 2023-04-18 01:27 | P.CNPUL ---
History of Present Illness Consult date: 04/18/23 Requesting physician: Lance Mondragon Reason for consult: pneumonia Chief complaint: Altered mental status and cough History of present illness: I am seeing this patient in new consultation today 04/18/2023 for suspected community acquired pneumonia. 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 He denies history of pulmonary diseases or being a smoker. Apparently, the patient had become confused with an associated cough that started the day before he came in on April 16. The patient is a poor historian, and apparently resides at an [facility]. According to the nurse, the patient's had concerns that he may be aspirating while drinking and eating. Swallow evaluation is currently pending. Patient is currently sitting up in bed, on 3 L nasal cannula, in no acute distress. He does have a congested nonproductive cough. He denies any shortness of breath, fever, chills, chest pain. Chest x-ray on arrival showed a right lower lung airspace opacity concerning for pneumonia. Brain CT without contrast on arrival showed no acute intracranial process with remote lacunar injuries and nonspecific white matter changes. CBC on arrival showed some leukocytosis with a WBC count of 18 currently down to 13, hemoglobin 11.8, hematocrit 37.4, platelets 223. BMP currently shows sodium 143, potassium 3.6, chloride 108, serum CO2 23, BUN 65, creatinine 3.17, glucose 176. Normal saline is infusing at 130 ML's per hour. Troponins were elevated on arrival at 0.18, the patient does have chronic kidney disease. Patient's NT proBNP was elevated at 17,000. Home dose of Lasix has been restarted. Cardiology is following. Patient is currently covered on a combination of Rocephin and azithromycin. He remains afebrile. Vital signs are stable. Review of Systems REVIEW OF SYSTEMS: CONSTITUTIONAL: Denies any recent significant weight loss or weight gain. EYES: Denies change in vision. EARS, NOSE, MOUTH, THROAT: Denies headaches, denies sore throat. CARDIOVASCULAR: Denies chest pain, palpitations or syncopal episodes. RESPIRATORY: See HPI GASTROINTESTINAL: Denies change in appetite, abdominal pain, nausea and vomiting, or diarrhea GENITOURINARY: Denies hematuria, denies infections. MUSKULOSKELETAL: Denies pain, denies swelling. INTEGUMENTARY: Denies rash, denies eczema. NEUROLOGICAL: Denies recent seizure activity. PSYCHIATRIC: Denies anxiety, denies depression. HEMATOLOGIC/LYMPHATIC: Denies anemia, denies enlarged lymph node Past Medical History Past Medical History: Heart Failure, Diabetes Mellitus, Deep Vein Thrombosis (DVT), Hyperlipidemia, Hypertension, Syncope Additional Past Medical History / Comment(s): other hx:per pt's "xray noted lung nodules". 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 There are no pets in the home. No service. Patient has lived in [place] and [place]. 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 Patient is moved to this area to be close to his children. No significant history of alcohol or recreational drug use. No international travel. No animal exposures. Smoking Status: Never smoker Past Alcohol Use History: None Reported Additional Past Alcohol Use History / Comment(s): Patient is and lives at home with his . There are no pets in the home. No service. Patient has lived in [facility]. 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 Patient is moved to this area to be close to his children. No significant history of alcohol or recreational drug use. No international travel. No animal exposures. Past Drug Use History: None Reported - Past Family History Father Family Medical History: Deep Vein Thrombosis (DVT) Additional Family Medical History / Comment(s): had valve sx- a week later from complications Mother Family Medical History: Congestive Heart Failure (CHF) Additional Family Medical History / Comment(s): phlebitis Medications and Allergies Home Medications Medication Instructions Recorded Confirmed Type Aspirin EC [Ecotrin Low Dose] 81 mg PO DAILY 06/18/19 04/16/23 History Sennosides-Docusate Sodium 1 tab PO DAILY 06/18/19 04/16/23 History [Senokot-S] hydrALAZINE HCL [Apresoline] 100 mg PO TID@0900,1500,2200 06/18/19 04/16/23 History Prazosin HCl 4 mg PO TID@0900,1500,2230 09/05/19 04/16/23 History Atorvastatin [Lipitor] 40 mg PO HS 01/27/22 04/16/23 History Cholecalciferol (Vitamin D3) 125 mcg PO DAILY 01/27/22 04/16/23 History [Vitamin D3 (125 MCG = 5,000 IU)] Isosorbide Mononitrate ER [Imdur] 60 mg PO DAILY 01/27/22 04/16/23 History Tamsulosin [Flomax] 0.4 mg PO HS 01/27/22 04/16/23 History carvediloL [Coreg] 25 mg PO BID 01/27/22 04/16/23 History Insulin NPH Hum/Reg Insulin Hm 28 units SQ BID@0900,1700 11/09/22 04/16/23 History [humuLIN 70/30 Kwikpen] calcitrioL [Calcitriol] 0.5 mcg PO MOWEFR@0900 12/23/22 04/16/23 History cloNIDine HCL [Catapres] 0.3 mg PO TID@0900,1500,2100 02/07/23 04/16/23 History Furosemide [Lasix] 40 mg PO DAILY #30 tab 02/09/23 04/16/23 Rx Rivaroxaban [Xarelto] 20 mg PO HS #30 tab 02/09/23 04/16/23 Rx Ascorbic Acid [Vitamin C] 500 mg PO DAILY 04/16/23 04/16/23 History Cholecalciferol [Vitamin D3 (25 50 mcg PO DAILY 04/16/23 04/16/23 History Mcg = 1000 Iu)] Dapagliflozin Propanediol [Farxiga] 5 mg PO DAILY 04/16/23 04/16/23 History Ferrous Sulfate [Feosol] 325 mg PO BID 04/16/23 04/16/23 History Ipratropium-Albuterol Nebulize 3 ml INHALATION RT-QID PRN 04/16/23 04/16/23 History [Duoneb 0.5 mg-3 mg/3 ml Soln] Lactose-Reduced Food [Ensure Plus] 240 ml PO DAILY 04/16/23 04/16/23 History Lactulose [Constulose] 10 gm PO Q12HR 04/16/23 04/16/23 History Multivitamins, Thera [Multivitamin 1 tab PO DAILY 04/16/23 04/16/23 History (formulary)] Zinc Gluconate [Zinc] 50 mg PO DAILY 04/16/23 04/16/23 History Allergies Allergy/AdvReac Type Severity Reaction Status Date / Time amlodipine Allergy Anaphylaxis Verified 04/16/23 20:41 lisinopril Allergy tongue Verified 04/16/23 20:41 swelling vancomycin Allergy seizure Verified 04/16/23 20:41 like activity Physical Exam Vitals: Vital Signs Temp Pulse Resp BP Pulse Ox 04/17/23 19:51 89 16 04/17/23 15:41 97.8 F 89 16 154/75 96 04/17/23 12:00 98 F 74 16 137/74 97 04/17/23 09:11 98 04/17/23 08:00 98.3 F 88 17 186/94 96 04/17/23 04:00 98.9 F 97 19 165/77 95 04/17/23 02:00 101 H 20 Intake and Output 04/17/23 04/17/23 04/18/23 14:59 22:59 06:59 Intake Total 50 1000 Output Total 300 300 Balance -250 700 Intake: IV 1000 Sodium Chloride 0.9% 1, 1000 000 ml @ 130 mls/hr IV . Q7H42M [facility] Rx#:[id number] Oral 50 Output: Urine 300 300 Other: Voiding Method Diaper Diaper Incontinent Incontinent External Catheter External Catheter Weight 87.5 kg GENERAL EXAM: Alert, 77-year-old white male, comfortable in no apparent distress. HEAD: Normocephalic and atraumatic EYES: Normal reaction of pupils, equal size. NOSE: Clear with pink turbinates. THROAT: No erythema or exudates. NECK: No masses, no JVD. CHEST: No chest wall deformity. LUNGS: Equal air entry with no crackles, wheeze, rhonchi or dullness. On 3 L nasal cannula. No conversational dyspnea or accessory muscle use.. CVS: S1 and S2 normal with no audible murmur, regular rhythm. No extra heart sounds ABDOMEN: No hepatosplenomegaly, active bowel sounds, no guarding or rigidity. SPINE: No scoliosis or deformity SKIN: No rashes CENTRAL NERVOUS SYSTEM: No focal deficits, tone is normal in all 4 extremities. He is disoriented to place. EXTREMITIES: There is a left [id number] amputation. There is no peripheral edema, clubbing, or cyanosis. Right dorsalis pedis pulse is weak. Results - Laboratory Findings CBC and BMP: 04/17/23 13:03 04/17/23 13:03 PT/INR, D-dimer PT 11.2 sec (9.0-12.0) 04/16/23 17:59 INR 1.1 (<1.2) 04/16/23 17:59 Abnormal lab findings: Abnormal Labs 04/16/23 04/16/23 04/16/23 17:59 17:59 17:59 WBC 18.1 H Hgb Hct RDW 18.3 H Neutrophils # 16.9 H Lymphocytes # 0.5 L Chloride BUN 53 H Creatinine 3.20 H Glucose 171 H POC Glucose (mg/dL) Troponin I 0.175 H* Urine Protein Urine Glucose (UA) Urine Ketones Urine Bacteria Urine Mucus 04/16/23 04/17/23 04/17/23 19:07 06:05 09:02 WBC Hgb Hct RDW Neutrophils # Lymphocytes # Chloride BUN Creatinine Glucose POC Glucose (mg/dL) 159 H 159 H Troponin I Urine Protein 1+ H Urine Glucose (UA) 4+ H Urine Ketones Trace H Urine Bacteria Rare H Urine Mucus Rare H 04/17/23 04/17/23 04/17/23 11:31 13:03 13:03 WBC 13.0 H Hgb 11.8 L Hct 37.4 L RDW 18.6 H Neutrophils # 11.9 H Lymphocytes # 0.5 L Chloride 108 H BUN 65 H Creatinine 3.17 H Glucose 263 H POC Glucose (mg/dL) 253 H Troponin I Urine Protein Urine Glucose (UA) Urine Ketones Urine Bacteria Urine Mucus 04/17/23 04/17/23 16:40 20:06 WBC Hgb Hct RDW Neutrophils # Lymphocytes # Chloride BUN Creatinine Glucose POC Glucose (mg/dL) 161 H 176 H Troponin I Urine Protein Urine Glucose (UA) Urine Ketones Urine Bacteria Urine Mucus - Diagnostic Findings Chest x-ray: image reviewed Assessment and Plan Assessment: Suspected community-acquired pneumonia, chest x-ray shows right lower lung airspace opacity. Acute hypoxic respiratory failure, currently on 3 L nasal cannula Recent COVID-19 infection approximately 2 weeks ago, negative for COVID-19 on this admission. Elevated troponins possibly related to supply demand mismatch Acute on chronic kidney injury, creatinine is elevated above baseline at 3.17 History of DVTs and possible pulmonary embolism currently anticoagulated on Xarelto History of previous intracranial hemorrhage History of left biuzw-bzj-sumv amputation related to osteomyelitis diabetes mellitus type 2 diabetic neuropathy chronic kidney disease stage III Essential hypertension hyperlipidemia Plan: Patient's medications, labs, chest x-ray reviewed Continue supplemental oxygen to maintain oxygen saturation 92% or greater Continue antibiotics for community-acquired pneumonia Blood cultures are pending Check procalcitonin level Continue bronchodilators Obtain a swallow evaluation Aspiration precautions Blood glucose control per admitting Continue anticoagulation We will continue to follow I have personally seen and examined the patient, performed the documentation and the assessment and plan as written. Number of minutes spent on the visit:20 Time with Patient: Greater than 30
[2023-04-18 06:05] LABS: Glucose,Whole Blood 66 mg/dL (70-110)
[2023-04-18 06:21] LABS: Glucose,Whole Blood 57 mg/dL (70-110)
[2023-04-18 06:37] LABS: Glucose,Whole Blood 53 mg/dL (70-110)
[2023-04-18] MEDS ORDERED: DEXTROSE 50% SYRINGE 50 ML IVP STA (06:43)
[2023-04-18] MEDS: SODIUM CHLORIDE 0.9% 1,000 ML IV SCH ×2 (06:45→14:59)
[2023-04-18] MEDS: carvediloL 12.5 MG TAB PO SCH ×2 (06:47→16:10)
[2023-04-18 06:56] LABS: Glucose,Whole Blood 173 mg/dL (70-110)
[2023-04-18] MEDS: LACTULOSE 20 GM/30 ML CUP PO SCH ×2 (08:22→20:53)
[2023-04-18] MEDS: PRAZOSIN 1 MG CAP PO SCH ×3 (08:23→20:54)
[2023-04-18] MEDS: FERROUS SULFATE 325 MG TAB PO SCH ×2 (08:23→20:53)
[2023-04-18] MEDS: INSULN ASP PRT/INSULIN ASPART 100 UNIT/ML 10 ML VIAL SQ SCH ×2 (08:23→11:52)
[2023-04-18] MEDS: CHOLECALCIFEROL 125 MCG (5000 IU) TABLET PO SCH (08:23)
[2023-04-18] MEDS: DAPAGLIFLOZIN PROPANEDIOL 5 MG TABLET PO SCH (08:24)
[2023-04-18] MEDS: SENNOSIDES-DOCUSATE SODIUM 1 EACH TAB PO SCH (08:24)
[2023-04-18] MEDS: CHOLECALCIFEROL 25 MCG (1000 IU) TABLET PO SCH (08:24)
[2023-04-18] MEDS: MULTIVITAMINS, THERA 1 EACH TAB PO SCH (08:24)
[2023-04-18] MEDS: ISOSORBIDE MONONITRATE ER 60 MG TAB.ER.24H PO SCH (08:24)
[2023-04-18] MEDS: FUROSEMIDE 40 MG TAB PO SCH (08:24)
[2023-04-18] MEDS: ASCORBIC ACID 500 MG TAB PO SCH (08:24)
[2023-04-18] MEDS: AZITHROMYCIN 500 MG TAB PO SCH (08:24)
[2023-04-18] MEDS: hydrALAZINE HCL 50 MG TAB PO SCH ×3 (08:24→20:54)
[2023-04-18] MEDS: cloNIDine HCL 0.1 MG TAB PO SCH ×3 (08:24→20:53)
[2023-04-18] MEDS: ASPIRIN 81 MG PO SCH (08:25)
[2023-04-18 08:58] LABS: Anisocytosis Slight; Basophils % (A) 0 %; Eosinophils # (A) 0.2 k/uL (0-0.7); Eosinophils % (A) 2 %; HCT 33.6 % (39.0-53.0); HGB 10.3 gm/dL (13.0-17.5); Hypochromasia Moderate; Lymphocytes # (A) 0.7 k/uL (1.0-4.8); Lymphocytes % (A) 7 %; MCH 25.8 pg (25.0-35.0); MCHC 30.7 g/dL (31.0-37.0); MCV 84.1 fL (80.0-100.0); Mean Platelet Volume 8.5; Microcytosis Slight; Monocytes # (A) 0.4 k/uL (0-1.0); Monocytes % (A) 4 %; Neutrophils # (A) 8.4 k/uL (1.3-7.7); Neutrophils % (A) 85 %; Platelet Count 187 k/uL (150-450); RBC 3.99 m/uL (4.30-5.90); RDW 18.7 % (11.5-15.5); WBC 9.9 k/uL (3.8-10.6)
[2023-04-18 09:47] LABS: Calcium 8.4 mg/dL (8.4-10.2)
[2023-04-18 11:29] LABS: Glucose,Whole Blood 125 mg/dL (70-110)
--- NOTE | 2023-04-18 11:48 | P.PN ---
Subjective Progress Note Date: 04/18/23 The patient is a 77-year-old male who was brought to the hospital for shortness of breath and change in mental status. Subsequently diagnosed with pneumonia, likely secondary to COVID-19 infection last month. Cardiology was consulted for elevated troponin levels. The patient was interviewed and examined lying in bed. Limited response. He denies any current pain. He states he is very tired. GENERAL: Ill-appearing, well-nourished and in no acute distress. NECK: Supple without JVD or thyromegaly. LUNGS: Breath sounds diminished to auscultation bilaterally. Respiration equal and unlabored. No wheezes, rales or rhonchi. HEART: Regular rate and rhythm without murmurs, rubs or gallops. S1 and S2 h eard. EXTREMITIES: Normal range of motion, left AKA no edema. No clubbing or cyanosis. VITALS: Blood pressure 143/74, pulse 77, respiratory rate 16, SpO2 98% on 2 L nasal cannula, afebrile TELEMETRY: Sinus rhythm to sinus tachycardia overnight LABS: WBC 9.9, hemoglobin 10.3, hematocrit 33.6, platelet 187, sodium 147, potassium 3.0, BUN 69, creatinine 2.8 to IMPRESSION: Right lower lobe pneumonia Elevated troponin, likely secondary to demand ischemia Hypertension Acute kidney injury Possible sepsis Hypokalemia PLAN: Continue supportive treatment for pneumonia Aggressive pulmonary hygiene No further recommendations cardiac standpoint I am dictating on behalf of Dr Tc Cai's history/physical and assessment/plan. Objective - Vital Signs Vital signs: Vital Signs Temp 97.7 F 04/18/23 04:00 Pulse 77 04/18/23 10:26 Resp 16 04/18/23 10:26 BP 143/74 04/18/23 08:00 Pulse Ox 98 04/18/23 04:00 FiO2 Intake & Output 04/17/23 04/18/23 04/18/23 18:59 06:59 18:59 Intake Total 50 1000 0 Output Total 300 400 Balance -250 600 0 Weight 87.5 kg 89.5 kg Intake: IV 1000 Sodium Chloride 0.9% 1, 1000 000 ml @ 75 mls/hr IV . [id number] [facility] Rx#:[id number] Oral 50 0 Output: Urine 300 400 Other: Voiding Method Diaper Diaper Incontinent Incontinent External Catheter External Catheter - Labs CBC & Chem 7: 04/18/23 08:25 04/18/23 08:25 Labs: Abnormal Lab Results - Last 24 Hours (Table) 04/17/23 04/17/23 04/17/23 Range/Units 13:03 13:03 16:40 WBC 13.0 H (3.8-10.6) k/uL RBC (4.30-5.90) m/uL Hgb 11.8 L (13.0-17.5) gm/dL Hct 37.4 L (39.0-53.0) % MCHC (31.0-37.0) g/dL RDW 18.6 H (11.5-15.5) % Neutrophils # 11.9 H (1.3-7.7) k/uL Lymphocytes # 0.5 L (1.0-4.8) k/uL Sodium (137-145) mmol/L Potassium (3.5-5.1) mmol/L Chloride 108 H (98-107) mmol/L BUN 65 H (9-20) mg/dL Creatinine 3.17 H (0.66-1.25) mg/dL Glucose 263 H (74-99) mg/dL POC Glucose (mg/dL) 161 H (70-110) mg/dL Procalcitonin (0.02-0.09) ng/mL 04/17/23 04/17/23 04/18/23 Range/Units 20:06 20:39 06:03 WBC (3.8-10.6) k/uL RBC (4.30-5.90) m/uL Hgb (13.0-17.5) gm/dL Hct (39.0-53.0) % MCHC (31.0-37.0) g/dL RDW (11.5-15.5) % Neutrophils # (1.3-7.7) k/uL Lymphocytes # (1.0-4.8) k/uL Sodium (137-145) mmol/L Potassium (3.5-5.1) mmol/L Chloride (98-107) mmol/L BUN (9-20) mg/dL Creatinine (0.66-1.25) mg/dL Glucose (74-99) mg/dL POC Glucose (mg/dL) 176 H 66 L (70-110) mg/dL Procalcitonin 30.20 H (0.02-0.09) ng/mL 04/18/23 04/18/23 04/18/23 Range/Units 06:19 06:36 06:54 WBC (3.8-10.6) k/uL RBC (4.30-5.90) m/uL Hgb (13.0-17.5) gm/dL Hct (39.0-53.0) % MCHC (31.0-37.0) g/dL RDW (11.5-15.5) % Neutrophils # (1.3-7.7) k/uL Lymphocytes # (1.0-4.8) k/uL Sodium (137-145) mmol/L Potassium (3.5-5.1) mmol/L Chloride (98-107) mmol/L BUN (9-20) mg/dL Creatinine (0.66-1.25) mg/dL Glucose (74-99) mg/dL POC Glucose (mg/dL) 57 L 53 L 173 H (70-110) mg/dL Procalcitonin (0.02-0.09) ng/mL 04/18/23 04/18/23 04/18/23 Range/Units 08:25 08:25 11:27 WBC (3.8-10.6) k/uL RBC 3.99 L (4.30-5.90) m/uL Hgb 10.3 L (13.0-17.5) gm/dL Hct 33.6 L (39.0-53.0) % MCHC 30.7 L (31.0-37.0) g/dL RDW 18.7 H (11.5-15.5) % Neutrophils # 8.4 H (1.3-7.7) k/uL Lymphocytes # 0.7 L (1.0-4.8) k/uL Sodium 147 H (137-145) mmol/L Potassium 3.0 L (3.5-5.1) mmol/L Chloride 115 H (98-107) mmol/L BUN 69 H (9-20) mg/dL Creatinine 2.82 H (0.66-1.25) mg/dL Glucose (74-99) mg/dL POC Glucose (mg/dL) 125 H (70-110) mg/dL Procalcitonin (0.02-0.09) ng/mL
--- NOTE | 2023-04-18 15:01 | P.PN ---
Subjective Progress Note Date: 04/18/23 Principal diagnosis: Community-acquired pneumonia Acute hypoxic respiratory failure Recent COVID-19 infection approximately 2 weeks ago, negative for COVID-19 on this admission. Elevated troponins possibly related to supply demand mismatch Acute on chronic kidney injury, creatinine is elevated above baseline at 3.17 77-year-old male presenting to the emergency department with change in mental status. Patient started with reported cough yesterday. Patient was noticed to be altered this afternoon. Patient is a poor historian and does not provide h istory. Majority of history comes from EMS. Patient reportedly had COVID-19 infection approximately 2 weeks ago. He has a history of intracranial hemorrhage. He started having a cough yesterday, with subsequent altered mental status different from baseline. This is the reason the patient was sent to the hospital for evaluation. Patient has a pertinent past medical history that includes heart failure, diabetes, DVT, hyperlipidemia, hypertension, and syncope. 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 Patient had a chest x-ray completed in the emergency department which showed right lower lobe pneumonia. Patient also had elevated troponin. EKG showed sinus tachycardia with no significant ST or T- wave abnormalities. LABS: White count 18.1, hemoglobin 13.5, platelets 282, sodium 143, potassium 3.8, chloride 103, B1 53, creatinine 3.2, troponin 0.175, BNP 17,000 04/18/2023 Patient is seen and evaluated in room at bedside; discussed with nursing staff; some reports of concern about possible aspiration Vital signs are reviewed and reveal temperature of 98.2, pulse 81, and his 16 and blood pressure 132/56 saturation 98% on 2 L Laboratory review the Pletal CBC of 9.9, hemoglobin of 10.3 and platelet count of 187, sodium 147, potassium 3.2, BUN/creatinine of 69/2.82 which is improved from 65/3.17 yesterday -- Patient remains on slow IV fluid hydration with normal saline at a rate of 75 mL an hour; given hyponatremia, we will switch fluids to half-normal saline; supplement potassium by protocol; we will repeat renal function and electrolytes for tomorrow morning - Patient remains on IV antibiotics in form of Rocephin and azithromycin - Cardiology on board for elevated troponin; deemed secondary to demand ischemia; no further cardiac workup is recommended Objective - Vital Signs Vital signs: Vital Signs Temp 97.7 F 04/18/23 04:00 Pulse 77 04/18/23 08:00 Resp 16 04/18/23 08:00 BP 143/74 04/18/23 08:00 Pulse Ox 98 04/18/23 04:00 FiO2 Intake & Output 04/17/23 04/18/23 04/18/23 18:59 06:59 18:59 Intake Total 50 1000 0 Output Total 300 400 Balance -250 600 0 Weight 87.5 kg 89.5 kg Intake: IV 1000 Sodium Chloride 0.9% 1, 1000 000 ml @ 75 mls/hr IV . [id number] [facility] Rx#:[id number] Oral 50 0 Output: Urine 300 400 Other: Voiding Method Diaper Diaper Incontinent Incontinent External Catheter External Catheter - Exam - Constitutional General appearance: Present: average body habitus, cooperative, no acute distre ss - EENT Eyes: Present: anicteric sclerae, EOMI, PERRLA, normal appearance ENT: Present: hearing grossly normal, normal oropharynx Ears: bilateral: normal - Neck Neck: Present: normal ROM. Absent: lymphadenopathy, rigidity, thyromegaly Carotids: negative: bruit present Thyroid: bilateral: normal size, negative: enlarged, nodule - Respiratory Respiratory: bilateral: CTA, negative: rales, rhonchi, wheezing - Cardiovascular Rhythm: regular Heart sounds: normal: S1, S2 Abnormal Heart Sounds: Absent: systolic murmur, diastolic murmur - Gastrointestinal General gastrointestinal: Present: normal bowel sounds, soft. Absent: distended, organomegaly, tenderness - Genitourinary Genitourinary Comment(s): deferred - Integumentary Integumentary: Present: normal turgor. Absent: jaundiced, rash, ulcer - Neurologic Neurologic: Present: CNII-XII intact. Absent: focal deficits - Musculoskeletal Musculoskeletal: Present: gait normal, strength equal bilaterally - Psychiatric Psychiatric: Present: A&O x's 3, appropriate affect, intact judgment & insight - Labs CBC & Chem 7: 04/18/23 08:25 04/18/23 08:25 Labs: Abnormal Lab Results - Last 24 Hours (Table) 04/17/23 04/17/23 04/17/23 Range/Units 11:31 13:03 13:03 WBC 13.0 H (3.8-10.6) k/uL RBC (4.30-5.90) m/uL Hgb 11.8 L (13.0-17.5) gm/dL Hct 37.4 L (39.0-53.0) % MCHC (31.0-37.0) g/dL RDW 18.6 H (11.5-15.5) % Neutrophils # 11.9 H (1.3-7.7) k/uL Lymphocytes # 0.5 L (1.0-4.8) k/uL Chloride 108 H (98-107) mmol/L BUN 65 H (9-20) mg/dL Creatinine 3.17 H (0.66-1.25) mg/dL Glucose 263 H (74-99) mg/dL POC Glucose (mg/dL) 253 H (70-110) mg/dL 04/17/23 04/17/23 04/18/23 Range/Units 16:40 20:06 06:03 WBC (3.8-10.6) k/uL RBC (4.30-5.90) m/uL Hgb (13.0-17.5) gm/dL Hct (39.0-53.0) % MCHC (31.0-37.0) g/dL RDW (11.5-15.5) % Neutrophils # (1.3-7.7) k/uL Lymphocytes # (1.0-4.8) k/uL Chloride (98-107) mmol/L BUN (9-20) mg/dL Creatinine (0.66-1.25) mg/dL Glucose (74-99) mg/dL POC Glucose (mg/dL) 161 H 176 H 66 L (70-110) mg/dL 04/18/23 04/18/23 04/18/23 Range/Units 06:19 06:36 06:54 WBC (3.8-10.6) k/uL RBC (4.30-5.90) m/uL Hgb (13.0-17.5) gm/dL Hct (39.0-53.0) % MCHC (31.0-37.0) g/dL RDW (11.5-15.5) % Neutrophils # (1.3-7.7) k/uL Lymphocytes # (1.0-4.8) k/uL Chloride (98-107) mmol/L BUN (9-20) mg/dL Creatinine (0.66-1.25) mg/dL Glucose (74-99) mg/dL POC Glucose (mg/dL) 57 L 53 L 173 H (70-110) mg/dL 04/18/23 Range/Units 08:25 WBC (3.8-10.6) k/uL RBC 3.99 L (4.30-5.90) m/uL Hgb 10.3 L (13.0-17.5) gm/dL Hct 33.6 L (39.0-53.0) % MCHC 30.7 L (31.0-37.0) g/dL RDW 18.7 H (11.5-15.5) % Neutrophils # 8.4 H (1.3-7.7) k/uL Lymphocytes # 0.7 L (1.0-4.8) k/uL Chloride (98-107) mmol/L BUN (9-20) mg/dL Creatinine (0.66-1.25) mg/dL Glucose (74-99) mg/dL POC Glucose (mg/dL) (70-110) mg/dL Assessment and Plan Assessment: 1. Right lower lobe pneumonia - Chest x-ray shows right lower lobe pneumonia; white blood count is elevated at 18.1 - Patient has been placed on IV Rocephin and azithromycin in ED along with bronchodilator nebulizer treatments - We will obtain blood cultures and sputum cultures and tailor antibiotics accordingly - Consult pulmonary for further recommendations 2. Elevated troponin; likely demand ischemia secondary to pneumonia; initial t roponin was elevated at 0.175 - We will monitor EKG and trend troponin; consult cardiology for further recommendations 3. Recent COVID-19 viral infection; specifics regarding time of diagnosis or an y subsequent treatment for COVID-19 infection is not available; we will repeat testing 4. Acute renal injury; patient has been placed on IV fluid hydration in form of normal saline at a rate of 75 mL an hour; we will monitor strict CHERELLE's, daily weights, renal function and electrolytes. Avoid nephrotoxins and hypotension - Cautious fluid hydration given elevated BNP 5. Hyperglycemia without acidosis; we will monitor Accu-Cheks before meals and at bedtime with insulin sliding scale; continue with home dose of insulin 7030 28 units twice a day 6. Elevated BNP; patient does not seem to be fluid overloaded; chest x-ray does not show coronary vascular congestion; we will monitor closely and make recommendations accordingly 7. Hypertension; Coreg 25 mg twice a day; clonidine 0.3 mg 3 times a day; Lasix 40 mg daily; hydralazine 100 mg 3 times a day 8. History of DVT; continue with home dose of Xarelto CODE STATUS; full code
[2023-04-18] MEDS ORDERED: POTASSIUM CHLORIDE 20 MEQ in WATER FOR INJECTION 1 100ML.BAG IVPB STA (15:03)
[2023-04-18 16:07] VITALS: TEMP 98
[2023-04-18] MEDS: SODIUM CHLORIDE 0.45% 1,000 ML IV SCH (16:12)
[2023-04-18 16:24] LABS: Glucose,Whole Blood 200 mg/dL (70-110)
[2023-04-18 20:06] LABS: Glucose,Whole Blood 150 mg/dL (70-110)
[2023-04-18] MEDS: ATORVASTATIN 40 MG TAB PO SCH (20:53)
[2023-04-18] MEDS: RIVAROXABAN 20 MG TAB PO SCH (20:53)
[2023-04-19] MEDS: SODIUM CHLORIDE 0.45% 1,000 ML IV SCH ×2 (03:24→20:56)
[2023-04-19] MEDS: carvediloL 12.5 MG TAB PO SCH ×2 (03:24→16:11)
[2023-04-19 05:35] LABS: Glucose,Whole Blood 128 mg/dL (70-110)
[2023-04-19] MEDS: ASCORBIC ACID 500 MG TAB PO SCH (09:43)
[2023-04-19] MEDS: CHOLECALCIFEROL 125 MCG (5000 IU) TABLET PO SCH (09:43)
[2023-04-19] MEDS: cloNIDine HCL 0.1 MG TAB PO SCH ×3 (09:43→20:56)
[2023-04-19] MEDS: ASPIRIN 81 MG PO SCH (09:43)
[2023-04-19] MEDS: FERROUS SULFATE 325 MG TAB PO SCH ×2 (09:43→20:56)
[2023-04-19] MEDS: CHOLECALCIFEROL 25 MCG (1000 IU) TABLET PO SCH (09:43)
[2023-04-19] MEDS: INSULN ASP PRT/INSULIN ASPART 100 UNIT/ML 10 ML VIAL SQ SCH ×2 (09:44→16:49)
[2023-04-19] MEDS: LACTULOSE 20 GM/30 ML CUP PO SCH ×2 (09:44→20:57)
[2023-04-19] MEDS: hydrALAZINE HCL 50 MG TAB PO SCH ×3 (09:44→22:38)
[2023-04-19] MEDS: FUROSEMIDE 40 MG TAB PO SCH (09:44)
[2023-04-19] MEDS: MULTIVITAMINS, THERA 1 EACH TAB PO SCH (09:44)
[2023-04-19] MEDS: ISOSORBIDE MONONITRATE ER 60 MG TAB.ER.24H PO SCH (09:44)
[2023-04-19] MEDS: SENNOSIDES-DOCUSATE SODIUM 1 EACH TAB PO SCH (09:45)
[2023-04-19] MEDS: PRAZOSIN 1 MG CAP PO SCH ×3 (09:45→22:39)
[2023-04-19 11:42] LABS: Glucose,Whole Blood 187 mg/dL (70-110)
--- NOTE | 2023-04-19 12:09 | P.PN ---
Subjective Progress Note Date: 04/19/23 I am seeing this patient in new consultation today 04/18/2023 for suspected community acquired pneumonia. 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 He denies history of pulmonary diseases or being a smoker. Apparently, the patient had become confused with an associated cough that started the day before he came in on April 16. The pat aleksandr is a poor historian, and apparently resides at an [facility]. According to the nurse, the patient's had concerns that he may be aspirating while drinking and eating. Swallow evaluation is currently pending. Patient is currently sitting up in bed, on 3 L nasal cannula, in no acute distress. He does have a congested nonproductive cough. He denies any shortness of breath, fever, chills, chest pain. Chest x-ray on arrival showed a right lower lung airspace opacity concerning for pneumonia. Brain CT without contrast on arrival showed no acute intracranial process with remote lacunar injuries and nonspecific white matter changes. CBC on arrival showed some leukocytosis with a WBC count of 18 currently down to 13, hemoglobin 11.8, hematocrit 37.4, platelets 223. BMP currently shows sodium 143, potassium 3.6, chloride 108, serum CO2 23, BUN 65, creatinine 3.17, glucose 176. Normal saline is infusing at 130 ML's per hour. Troponins were elevated on arrival at 0.18, the patient does have chronic kidney disease. Patient's NT proBNP was elevated at 17,000. Home dose of Lasix has b een restarted. Cardiology is following. Patient is currently covered on a combination of Rocephin and azithromycin. He remains afebrile. Vital signs are stable. On today's evaluation of 04/19/2023, the patient is stable room air oxygen. No significant respiratory distress. Noted the patient had a Covid 19 infection approximately 2 weeks ago. His acute Covid 19 testing came back negative. He is on" initial was also for previous history of pulmonary embolism. 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 He is known to have diabetes mellitus type 2 with neuropathy and chronic stage III kidney disease. He has other comorbidities including hypertension hyperlipidemia and congestion heart failure. For now, the patient's condition is stable is on room air oxygen. Is not having any respiratory distress. The Legionella urine antigen came back negative. The pro-calcitonin level was quite elevated at 30.2 and this is to be repeated. The patient has a component of chronic kidney disease with a creatin ine of 2.8 on today's evaluation. He is not receiving any antibiotic coverage for the time being. Objective - Vital Signs Vital signs: Vital Signs Temp 98.0 F 04/18/23 16:00 Pulse 76 04/19/23 08:00 Resp 16 04/19/23 08:00 BP 186/80 04/19/23 08:00 Pulse Ox 98 04/18/23 16:00 FiO2 Intake & Output 04/18/23 04/19/23 04/19/23 18:59 06:59 18:59 Intake Total 240 700 Output Total 1400 700 Balance 240 -700 -700 Intake: Intake, IV Titration 700 Amount Potassium Chloride 20 meq 100 In Water For Injection 1 100ml.bag @ 50 mls/hr IVPB ONCE STA Rx#: [id number] Sodium Chloride 0.45% 1, 600 000 ml @ 75 mls/hr IV . [id number] [facility] Rx#:[id number] Oral 240 Output: Urine 1400 700 Other: Voiding Method Diaper Incontinent External Catheter - Exam GENERAL EXAM: Alert, 77-year-old white male, comfortable in no apparent distress. HEAD: Normocephalic and atraumatic EYES: Normal reaction of pupils, equal size. NOSE: Clear with pink turbinates. THROAT: No erythema or exudates. NECK: No masses, no JVD. CHEST: No chest wall deformity. LUNGS: Equal air entry with no crackles, wheeze, rhonchi or dullness. On 3 L nasal cannula. No conversational dyspnea or accessory muscle use.. CVS: S1 and S2 normal with no audible murmur, regular rhythm. No extra heart sounds ABDOMEN: No hepatosplenomegaly, active bowel sounds, no guarding or rigidity. SPINE: No scoliosis or deformity SKIN: No rashes CENTRAL NERVOUS SYSTEM: No focal deficits, tone is normal in all 4 extremities. He is disoriented to place. EXTREMITIES: There is a left gbjdq-[id number]-[id number] amputation. There is no peripheral edema, clubbing, or cyanosis. Right dorsalis pedis pulse is weak. - Labs CBC & Chem 7: 04/18/23 08:25 04/18/23 08:25 Labs: Abnormal Lab Results - Last 24 Hours (Table) 04/18/23 04/18/23 04/18/23 Range/Units 11:27 16:23 19:45 POC Glucose (mg/dL) 125 H 200 H 150 H (70-110) mg/dL 04/19/23 Range/Units 05:26 POC Glucose (mg/dL) 128 H (70-110) mg/dL Microbiology - Last 24 Hours (Table) 04/16/23 20:25 Blood Culture - Preliminary Blood 04/16/23 20:40 Blood Culture Gram Stain - Preliminary Blood Blood Culture - Preliminary Staphylococcus epidermidis Assessment and Plan Plan: Suspected community-acquired pneumonia, chest x-ray shows right lower lung airspace opacity. The patient was not given any antibiotics since admission. Pro-calcitonin level is significantly elevated and this is to be repeated. The patient is currently on room air oxygen without having any respiratory distress. Acute hypoxic respiratory failure, currently on room air oxygen Recent COVID-19 infection approximately 2 weeks ago, negative for COVID-19 on this admission. 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
--- NOTE | 2023-04-19 13:40 | P.PN ---
Subjective Progress Note Date: 04/19/23 HISTORY OF PRESENT ILLNESS: Patient examined this morning at the bedside. Patient denies chest pain or pressure. He reports improvement in his shortness of breath. He also reports improvement in his cough. Blood pressure slightly on the higher side this morning, however previous blood pressures are decently controlled. PHYSICAL EXAM: VITAL SIGNS: Reviewed. GENERAL: Well-developed in no acute distress. NECK: Supple. No JVD or thyromegaly LUNGS: Respirations even and unlabored. Lungs essentially clear to auscultation bilaterally. HEART: Regular rate and rhythm. S1 and S2 heard. EXTREMITIES: Normal range of motion. No clubbing or cyanosis. Peripheral pulses intact. Left AKA. ASSESSMENT: Right-sided pneumonia Elevated troponin, likely secondary to above, no evidence of acute coronary syndrome Hypertension Hyperlipidemia Diabetes PLAN: Pulmonary medicine following Continue current cardiac medications Patient is stable from a cardiac standpoint with no further inpatient recommendations We will sign off. Please reconsult if needed. Nurse practitioner note has been reviewed by physician. Signing provider agrees with the documented findings, assessment, and plan of care. Objective - Vital Signs Vital signs: Vital Signs Temp 98.0 F 04/18/23 16:00 Pulse 76 04/19/23 08:00 Resp 16 04/19/23 08:00 BP 186/80 04/19/23 08:00 Pulse Ox 98 04/18/23 16:00 FiO2 Intake & Output 04/18/23 04/19/23 04/19/23 18:59 06:59 18:59 Intake Total 240 700 Output Total 1400 700 Balance 240 -700 -700 Intake: Intake, IV Titration 700 Amount Potassium Chloride 20 meq 100 In Water For Injection 1 100ml.bag @ 50 mls/hr IVPB ONCE STA Rx#: [id number] Sodium Chloride 0.45% 1, 600 000 ml @ 75 mls/hr IV . [id number] [facility] Rx#:[id number] Oral 240 Output: Urine 1400 700 Other: Voiding Method Diaper Diaper Incontinent Incontinent External Catheter External Catheter - Labs CBC & Chem 7: 04/18/23 08:25 04/18/23 08:25 Labs: Abnormal Lab Results - Last 24 Hours (Table) 04/18/23 04/18/23 04/19/23 Range/Units 16:23 19:45 05:26 POC Glucose (mg/dL) 200 H 150 H 128 H (70-110) mg/dL 04/19/23 Range/Units 11:40 POC Glucose (mg/dL) 187 H (70-110) mg/dL Microbiology - Last 24 Hours (Table) 04/16/23 20:25 Blood Culture - Preliminary Blood 04/16/23 20:40 Blood Culture Gram Stain - Preliminary Blood Blood Culture - Preliminary Staphylococcus epidermidis
--- NOTE | 2023-04-19 13:51 | P.PN ---
Subjective 72-year-old male admitted for right lower lobe pneumonia patient is not in respiratory distress at this time, patient is on Unasyn for aspiration pneumonia recently evaluated the patient patient will modified diet. REVIEW OF SYSTEMS: CONSTITUTIONAL: No fever, no malaise, no fatigue. HEENT: No recent visual problems or hearing problems. Denied any sore throat. CARDIOVASCULAR: No chest pain, orthopnea, PND, no palpitations, no syncope. PULMONARY: No shortness of breath, no cough, no hemoptysis. GASTROINTESTINAL: No diarrhea, no nausea, no vomiting, no abdominal pain. NEUROLOGICAL: No headaches, no weakness, no numbness. HEMATOLOGICAL: Denies any bleeding or petechiae. GENITOURINARY: Denies any burning micturition, frequency, or urgency. MUSCULOSKELETAL/RHEUMATOLOGICAL: Denies any joint pain, swelling, or any muscle pain. ENDOCRINE: Denies any polyuria or polydipsia. The rest of the 14-point review of systems is negative. PHYSICAL EXAMINATION: GENERAL: The patient is alert and oriented x3, not in any acute distress. Well developed, well nourished. HEENT: Pupils are round and equally reacting to light. EOMI. No scleral icterus. No conjunctival pallor. Normocephalic, atraumatic. No pharyngeal erythema. No thyromegaly. CARDIOVASCULAR: S1 and S2 present. No murmurs, rubs, or gallops. PULMONARY: Chest is clear to auscultation, no wheezing or crackles. ABDOMEN: Soft, nontender, nondistended, normoactive bowel sounds. No palpable organomegaly. MUSCULOSKELETAL: No joint swelling or deformity. EXTREMITIES: No cyanosis, clubbing, or pedal edema. NEUROLOGICAL: Gross neurological examination did not reveal any new focal deficits. SKIN: No rashes. Assessment and plan -Possible aspiration pneumonia: Patient is on Unasyn -Acute hypoxic respiratory failure on admission presently on room air -Elevated troponin secondary to pneumonia no acute myocardial infarction Acute renal failure resolved -chronic kidney disease stage IV -Type 2 diabetes mellitus -Past left above knee amputation next and epinephrine diabetic peripheral neuropathy -Hyperlipidemia DVT prophylaxis: Patient is on xarelto Objective - Vital Signs Vital signs: Vital Signs Temp 98.0 F 04/18/23 16:00 Pulse 76 04/19/23 08:00 Resp 16 04/19/23 08:00 BP 186/80 04/19/23 08:00 Pulse Ox 98 04/18/23 16:00 FiO2 Intake & Output 04/18/23 04/19/23 04/19/23 18:59 06:59 18:59 Intake Total 240 700 Output Total 1400 700 Balance 240 -700 -700 Intake: Intake, IV Titration 700 Amount Potassium Chloride 20 meq 100 In Water For Injection 1 100ml.bag @ 50 mls/hr IVPB ONCE STA Rx#: [id number] Sodium Chloride 0.45% 1, 600 000 ml @ 75 mls/hr IV . [id number] [facility] Rx#:[id number] Oral 240 Output: Urine 1400 700 Other: Voiding Method Diaper Diaper Incontinent Incontinent External Catheter External Catheter - Labs CBC & Chem 7: 04/18/23 08:25 04/18/23 08:25 Labs: Abnormal Lab Results - Last 24 Hours (Table) 04/18/23 04/18/23 04/19/23 Range/Units 16:23 19:45 05:26 POC Glucose (mg/dL) 200 H 150 H 128 H (70-110) mg/dL 04/19/23 Range/Units 11:40 POC Glucose (mg/dL) 187 H (70-110) mg/dL Microbiology - Last 24 Hours (Table) 04/16/23 20:25 Blood Culture - Preliminary Blood 04/16/23 20:40 Blood Culture Gram Stain - Preliminary Blood Blood Culture - Preliminary Staphylococcus epidermidis
[2023-04-19] MEDS: AMPICILLIN-SULBACTAM 3 GM in SODIUM CHLORIDE 0.9% 100 ML IVPB SCH (16:11)
[2023-04-19 16:39] LABS: Glucose,Whole Blood 193 mg/dL (70-110)
[2023-04-19] MEDS: DAPAGLIFLOZIN PROPANEDIOL 5 MG TABLET PO SCH (19:36)
[2023-04-19 19:47] LABS: Glucose,Whole Blood 205 mg/dL (70-110)
[2023-04-19] MEDS: ATORVASTATIN 40 MG TAB PO SCH (20:56)
[2023-04-19] MEDS: RIVAROXABAN 20 MG TAB PO SCH (20:56)
[2023-04-20] MEDS: AMPICILLIN-SULBACTAM 3 GM in SODIUM CHLORIDE 0.9% 100 ML IVPB SCH ×3 (00:03→17:11)
[2023-04-20 06:14] LABS: Glucose,Whole Blood 150 mg/dL (70-110)
[2023-04-20] MEDS: carvediloL 12.5 MG TAB PO SCH ×2 (06:33→17:12)
[2023-04-20] MEDS: SODIUM CHLORIDE 0.45% 1,000 ML IV SCH (06:35)
[2023-04-20] MEDS ORDERED: DAPAGLIFLOZIN PROPANEDIOL 10 MG TABLET PO SCH (09:00)
[2023-04-20] MEDS: ASCORBIC ACID 500 MG TAB PO SCH (09:49)
[2023-04-20] MEDS: LACTULOSE 20 GM/30 ML CUP PO SCH (09:49)
[2023-04-20] MEDS: MULTIVITAMINS, THERA 1 EACH TAB PO SCH (09:49)
[2023-04-20] MEDS: CHOLECALCIFEROL 25 MCG (1000 IU) TABLET PO SCH (09:49)
[2023-04-20] MEDS: ISOSORBIDE MONONITRATE ER 60 MG TAB.ER.24H PO SCH (09:49)
[2023-04-20] MEDS: FERROUS SULFATE 325 MG TAB PO SCH (09:49)
[2023-04-20] MEDS: hydrALAZINE HCL 50 MG TAB PO SCH ×2 (09:49→17:12)
[2023-04-20] MEDS: ASPIRIN 81 MG PO SCH (09:49)
[2023-04-20] MEDS: SENNOSIDES-DOCUSATE SODIUM 1 EACH TAB PO SCH (09:49)
[2023-04-20] MEDS: CHOLECALCIFEROL 125 MCG (5000 IU) TABLET PO SCH (09:49)
[2023-04-20] MEDS: PRAZOSIN 1 MG CAP PO SCH ×2 (09:50→17:12)
[2023-04-20] MEDS: INSULN ASP PRT/INSULIN ASPART 100 UNIT/ML 10 ML VIAL SQ SCH ×2 (09:51→17:13)
[2023-04-20] MEDS: cloNIDine HCL 0.1 MG TAB PO SCH ×2 (09:52→17:12)
[2023-04-20 11:28] LABS: Albumin 3.1 g/dL (3.5-5.0); Calcium 8.8 mg/dL (8.4-10.2); Potassium 3.9 mmol/L (3.5-5.1); Total Bilirubin 0.6 mg/dL (0.2-1.3); Total Protein 5.8 g/dL (6.3-8.2)
--- NOTE | 2023-04-20 11:56 | P.PN ---
Subjective Progress Note Date: 04/20/23 I am seeing this patient in new consultation today 04/18/2023 for suspected community acquired pneumonia. 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 He denies history of pulmonary diseases or being a smoker. Apparently, the patient had become confused with an associated cough that started the day before he came in on April 16. The pat aleksandr is a poor historian, and apparently resides at an [facility]. According to the nurse, the patient's had concerns that he may be aspirating while drinking and eating. Swallow evaluation is currently pending. Patient is currently sitting up in bed, on 3 L nasal cannula, in no acute distress. He does have a congested nonproductive cough. He denies any shortness of breath, fever, chills, chest pain. Chest x-ray on arrival showed a right lower lung airspace opacity concerning for pneumonia. Brain CT without contrast on arrival showed no acute intracranial process with remote lacunar injuries and nonspecific white matter changes. CBC on arrival showed some leukocytosis with a WBC count of 18 currently down to 13, hemoglobin 11.8, hematocrit 37.4, platelets 223. BMP currently shows sodium 143, potassium 3.6, chloride 108, serum CO2 23, BUN 65, creatinine 3.17, glucose 176. Normal saline is infusing at 130 ML's per hour. Troponins were elevated on arrival at 0.18, the patient does have chronic kidney disease. Patient's NT proBNP was elevated at 17,000. Home dose of Lasix has b een restarted. Cardiology is following. Patient is currently covered on a combination of Rocephin and azithromycin. He remains afebrile. Vital signs are stable. On today's evaluation of 04/19/2023, the patient is stable room air oxygen. No significant respiratory distress. Noted the patient had a Covid 19 infection approximately 2 weeks ago. His acute Covid 19 testing came back negative. He is on" initial was also for previous history of pulmonary embolism. 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 He is known to have diabetes mellitus type 2 with neuropathy and chronic stage III kidney disease. He has other comorbidities including hypertension hyperlipidemia and congestion heart failure. For now, the patient's condition is stable is on room air oxygen. Is not having any respiratory distress. The Legionella urine antigen came back negative. The pro-calcitonin level was quite elevated at 30.2 and this is to be repeated. The patient has a component of chronic kidney disease with a creatin ine of 2.8 on today's evaluation. He is not receiving any antibiotic coverage for the time being. On today's evaluation of 04/20/2023, the patient remains on room air oxygen. The patient is doing well and he is, comfortable and is not experiencing any shortness of breath. As mentioned earlier, the pro-calcitonin level was quite elevated. Pneumonia was suspected and the patient is currently on IV Unasyn. A repeat pro-calcitonin level was done and the levels are essentially improving. The level from yesterday was down to 7.44. Meanwhile, repeat electrolytes were done and the patient is showing an improvement in acute kidney injury. Creatinine is down to 1.8 and a BUN of 48. Respiratory electrolytes are essentially within normal limits. Limited cough. No significant sputum product ion. No signs of any respiratory distress at this point in time. No fever or chills. Patient is on room air oxygen with a pulse ox of 97%. The patient is hemodynamically stable. Objective - Vital Signs Vital signs: Vital Signs Temp 98.0 F 04/19/23 20:52 Pulse 62 04/20/23 04:01 Resp 17 04/20/23 04:01 BP 168/84 04/20/23 06:32 Pulse Ox 97 04/20/23 04:01 FiO2 Intake & Output 04/19/23 04/20/23 04/20/23 18:59 06:59 18:59 Intake Total 580 0 Output Total 1150 1100 Balance -570 -1100 0 Weight 90 kg Intake: Oral 580 0 Output: Urine 1150 1100 Other: Voiding Method Diaper Diaper Incontinent Incontinent External Catheter External Catheter - Exam GENERAL EXAM: Alert, 77-year-old white male, comfortable in no apparent distress. HEAD: Normocephalic and atraumatic EYES: Normal reaction of pupils, equal size. NOSE: Clear with pink turbinates. THROAT: No erythema or exudates. NECK: No masses, no JVD. CHEST: No chest wall deformity. LUNGS: Equal air entry with no crackles, wheeze, rhonchi or dullness. On 3 L n sahil cannula. No conversational dyspnea or accessory muscle use.. CVS: S1 and S2 normal with no audible murmur, regular rhythm. No extra heart sounds ABDOMEN: No hepatosplenomegaly, active bowel sounds, no guarding or rigidity. SPINE: No scoliosis or deformity SKIN: No rashes CENTRAL NERVOUS SYSTEM: No focal deficits, tone is normal in all 4 extremities. He is disoriented to place. EXTREMITIES: There is a left nasbq-wqu-mnit amputation. There is no peripheral edema, clubbing, or cyanosis. Right dorsalis pedis pulse is weak. - Labs CBC & Chem 7: 04/18/23 08:25 04/20/23 10:27 Labs: Abnormal Lab Results - Last 24 Hours (Table) 04/19/23 04/19/23 04/19/23 Range/Units 11:40 12:25 16:37 POC Glucose (mg/dL) 187 H 193 H (70-110) mg/dL Procalcitonin 7.44 H (0.02-0.09) ng/mL 04/19/23 04/20/23 Range/Units 19:43 06:09 POC Glucose (mg/dL) 205 H 150 H (70-110) mg/dL Procalcitonin (0.02-0.09) ng/mL Microbiology - Last 24 Hours (Table) 04/16/23 20:25 Blood Culture Gram Stain - Preliminary Blood Blood Culture - Preliminary Assessment and Plan Plan: Suspected community-acquired pneumonia, chest x-ray shows right lower lung airspace opacity. . Pro-calcitonin level is significantly elevated and level was repeated and the level was down. The patient is currently on room air oxygen without having any respiratory distress. The patient is covered with antibiotics and the patient is currently on IV Unasyn . The blood cultures positive for staph epidermidis, likely a contaminant. Acute hypoxic respiratory failure, currently on room air oxygen Recent COVID-19 infection approximately 2 weeks ago, negative for COVID-19 on this admission. 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 Plan Consider possibility of a pneumonia and the patient is currently on IV Unasyn and the pro calcitonin level is improving Renal function continues to improve The patient is on room air oxygen Repeat pro-calcitonin level from yesterday shows improvement in the level is down 7 Patient is currently on room and oxygen without any signs of respiratory distress We'll continue to follow
[2023-04-20 12:05] VITALS: RESP 16
[2023-04-20 12:06] LABS: Glucose,Whole Blood 185 mg/dL (70-110)
--- NOTE | 2023-04-20 12:15 | CDI ---
Documentation Clarification Form Date: 04/20/2023 12:01:08 PM From: Trudy Reeder RN CCDS Phone: [phone] Admit Date: 04/16/2023 08:11:00 PM Patient Name: Vladimir Torres Visit Number: [id number] Discharge Date: ATTENTION: The Clinical Documentation Specialists (CDI) and [facility] Coding Staff appreciate your assistance in clarifying documentation. Please respond to the clarification below the line at the bottom and electronically sign. The CDI & [facility] Coding staff will review the response and follow-up if needed. Please note: Queries are made part of the Legal Health Record. If you have any questions, please contact the author of this message via ITS. Dr. Sharon Ray Sepsis is documented cardiology consult, 04/17, but is not noted in subsequent documentation. Clarification is requested. History/Risk Factors:77-year-old male presents to the ED with a cough and altered mental status. Medical History: Heart failure, DM, HTN and HLD. 04/16, H&P. Clinical Indicators: VSS: 04/16 B/P 129/73, HR 111; RR 22; SpO2 92% room air. VSS: 04/16 B/P 130/70; HR 99; Temp 99.0 oral F; RR 20; SpO2 2L 96% 2L nasal cannula CXR: 04/16 Right lower lobe airspace opacity. Labs: 04/16 Wbc 18.1; Neutrophils 16.9 Treatment: Acetaminophen IVPB x 1; Azithromycin IVPB; Ceftriaxone IVPB x 1; 0.9ns 75cchr IV; 04/17 Zithromax PO Daily x 2 doses; 04/17 Ceftriaxone IVPB Q24HR x 4 bags Please clarify if the Sepsis is: [ ] Sepsis confirmed, remains under treatment [ ] Sepsis confirmed, resolved [ ] Sepsis ruled out [ ] Other condition, please specify [ ] Unable to determine 04/20 documented in discharge summary Sepsis, present on admission secondary to pneumonia, resolved. Dr Ray and Martha Maloney SCRUFF WORKER (Template Last Revised: January 2021) MTDD
--- NOTE | 2023-04-20 12:33 | CDI ---
Documentation Clarification Form Date: 04/20/2023 12:16:42 PM From: Trudy Reeder RN CCDS Phone: [phone] Admit Date: 04/16/2023 08:11:00 PM Patient Name: Vladimir Torres Visit Number: [id number] Discharge Date: ATTENTION: The Clinical Documentation Specialists (CDI) and [facility] Coding Staff appreciate your assistance in clarifying documentation. Please respond to the clarification below the line at the bottom and electronically sign. The CDI & [facility] Coding staff will review the response and follow-up if needed. Please note: Queries are made part of the Legal Health Record. If you have any questions, please contact the author of this message via ITS. Dr. Sharon Ray Your patient has the documented symptom of Altered Mental Status 04/16,H&P. Additional clarification regarding the etiology/cause of this symptom is requested. History/Risk Factors: History/Risk Factors:77-year-old male presents to the ED with a cough and altered mental status. Medical History: Heart failure, DM, HTN and HLD. 04/16, H&P. Clinical Indicators: Labs, 04/16: Wbc 18.1; Neutrophils 16.9; CXR, 04/16: Right lower lobe airspace opacity CT Brain, 04/16: 1.No acute intracranial process. 2.Remote lacunar injuries along with nonspecific white matter changes likely secondary to chronic microangiopathy. Treatment: Acetaminophen IVPB x 1; Azithromycin IVPB; Ceftriaxone IVPB x 1; 0.9ns 75cchr IV; 04/17 Zithromax PO Daily x 2 doses; 04/17 Ceftriaxone IVPB Q24HR x 4 bags. Neuro checks. Please clarify the etiology of the symptom of Altered Mental Status: [ ] Metabolic Encephalopathy due to pneumonia [ ] Other condition (please specify) [ ] Unable to determine Documented in DCS on 04/20 Metabolic encephalopathy due to pneumonia. 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
--- NOTE | 2023-04-20 14:10 | FL ---
EXAMINATION TYPE: FL barium swallow w video DATE OF EXAM: 04/20/2023 CLINICAL HISTORY: 77-year-old male aspiration pneumonia, coughing with thin liquids, Dysphagia. Total fluoroscopy time: 4 minutes 30 seconds. Total images: None. Real-time fluoroscopy support was provided to speech pathology. DOSE AREA PRODUCT (DAP) UGY*M,MGY*CM: 400.2 TECHNIQUE: Deglutition study is performed utilizing thin liquid barium, honey and nectar thick liqui d barium, barium thick applesauce, and barium coated cracker. COMPARISON: None. FINDINGS: Swallow initiation was mildly delayed with bolus free spilling to the level of the vallecula. There i s decreased to absent posterior pharyngeal wall peristalsis. Rolling tongue movement is noted during mastication. There is penetration with all consistencies. Deep penetration to the vocal folds with thin liquids th ough improved with chin tuck maneuver. Progressive vallecular residuals are noted especially with solid consistencies. This leads to eventua l silent aspiration with attempted thin liquid wash. IMPRESSION: Penetration with all consistencies though improved with chin tuck maneuver. However, solid consistenc ies results in progressive vallecular residuals. This leads to eventual silent aspiration with an att empted thin liquid wash. Please refer to speech therapist notes for further details if necessary.
--- NOTE | 2023-04-20 15:52 | P.DS ---
Providers Date of admission: 04/16/23 20:11 Expected date of discharge: 04/20/23 Attending physician: Lance Mondragon MD Consults: 04/17/23 12:57 Consult Physician Routine Consulting Provider: Noel Julien Consult Reason/Comments: Pneumonia Do you want consulting provider notified?: Yes Primary care physician: Jack De Jesus Hospital Course: Final diagnosis Right lower lobe pneumonia with concerns of aspiration pneumonia, present on admission Sepsis, present on admission secondary to pneumonia, resolved Metabolic encephalopathy secondary to pneumonia Acute hypoxic respiratory failure secondary to pneumonia, currently on room air Acute renal failure with chronic kidney disease stage IV Diabetes mellitus, type II History of left lwquu-pfe-atsy amputation Diabetic peripheral neuropathy [place] hyperlipidemia GI prophylaxis DVT prophylaxis Discharge disposition Patient is being discharged in a stable condition with guarded prognosis to [facility] . Patient will follow-up with Dr. De Jesus in the outpatient setting upon discharge. Patient is to continue with oral Augmentin twice daily for the next 5 days outpatient to complete the course. Total time taken is greater than 35 minutes. Hospital course This is a 77-year-old male who was recently admitted with right lower lobe pneumonia being followed by pulmonary with concerns of aspiration pneumonia. Patient was seen and evaluated by speech pathology underwent a modified barium swallow study and showing silent aspiration recommending aspiration precautions with head of the bed elevated 30-45 at all times with supervision with meals and dysphasia chopped 3 diet with honey thickened liquids. Patient okay to have free water between meals twice daily. Per speech pathologist, patient does not like honey thickened liquids and has been refusing. Patient needs to continue with chin tuck maneuver with each meal and would strongly recommend speech therapy outpatient at the [facility]. Patient is high risk for aspiration. Patient's pro calcitonin is elevated although trending down and patient was maintained on IV antibiotics. Patient will continue on oral Augmentin twice daily for the next 5 days to complete a course. Patient is in no respiratory distress and currently on room air. Patient been cleared by consultations. Please refer to other consultation notes for further HPI. Currently no reports of chest pain, shortness of breath, or palpitations. Patient is afebrile. No reports of nausea or vomiting and patient is tolerating diet. Patient will be going to [facility] today. Guarded prognosis and high risk for readmission given patient's significant comorbidities. Physical exam: Gen: This is a 77-year-old male who is awake, alert and oriented 2-3, elderly-appearing, well-nourished HEENT: Head is atraumatic, normocephalic. Pupils equal, round. Sclerae is anicteric. NECK: Supple. No JVD. No lymphadenopathy. No thyromegaly. LUNGS: Diminished breath sounds bilaterally with no wheezing or rhonchi noted. No intercostal retractions. HEART: Regular rate and rhythm. No murmur. ABDOMEN: Soft. Bowel sounds are present. No masses. No tenderness. EXTREMITIES: No pedal edema. No calf tenderness. NEUROLOGICAL: Patient is awake, alert and oriented x2-3. Cranial nerves 2 through 12 are grossly intact. Diffusely weak Please refer to medication reconciliation sheet for a list of medications. The impression and plan of care has been dictated by Martha Maloney, Nurse Practitioner as directed. Dr. Cory MD I have performed a history and examination and MDM of this patient, discussed the same with the dictator, and agree with the dictator's assessment and plan as written ,documented as a scribe. Based on total visit time, I have performed more than 50% of the visit. Patient Condition at Discharge: Fair Plan - Discharge Summary Discharge Rx Participant: No New Discharge Prescriptions: New Amoxic-Pot Clav 400-57Mg/5Ml [Augmentin 400-57 mg/5 ml Susp] 5 ml PO Q12H 5 Days #40 ml Continue Sennosides-Docusate Sodium [Senokot-S] 1 tab PO DAILY hydrALAZINE HCL [Apresoline] 100 mg PO TID@0900,1500,2200 Aspirin EC [Ecotrin Low Dose] 81 mg PO DAILY Prazosin HCl 4 mg PO TID@0900,1500,2230 Atorvastatin [Lipitor] 40 mg PO HS Cholecalciferol (Vitamin D3) [Vitamin D3 (125 MCG = 5,000 IU)] 125 mcg PO DAILY Isosorbide Mononitrate ER [Imdur] 60 mg PO DAILY Tamsulosin [Flomax] 0.4 mg PO HS Insulin NPH Hum/Reg Insulin Hm [humuLIN 70/30 Kwikpen] 28 units SQ BID@0900,1700 calcitrioL [Calcitriol] 0.5 mcg PO MOWEFR@0900 cloNIDine HCL [Catapres] 0.3 mg PO TID@0900,1500,2100 Rivaroxaban [Xarelto] 20 mg PO HS #30 tab Lactulose [Constulose] 10 gm PO Q12HR Ferrous Sulfate [Iron (65 MG Elemental)] 325 mg PO BID Cholecalciferol [Vitamin D3 (25 Mcg = 1000 Iu)] 50 mcg PO DAILY Multivitamins, Thera [Multivitamin (formulary)] 1 tab PO DAILY Dapagliflozin Propanediol [Farxiga] 5 mg PO DAILY Ipratropium-Albuterol Nebulize [Duoneb 0.5 mg-3 mg/3 ml Soln] 3 ml INHALATION RT-QID PRN PRN Reason: Shortness Of Breath carvediloL [Coreg] 25 mg PO BID Ascorbic Acid [Vitamin C] 500 mg PO DAILY Lactose-Reduced Food [Ensure Plus] 240 ml PO DAILY Discontinued Zinc Gluconate [Zinc] 50 mg PO DAILY Furosemide [Lasix] 40 mg PO DAILY #30 tab Discharge Medication List Aspirin EC [Ecotrin Low Dose] 81 mg PO DAILY 06/18/19 [History] Sennosides-Docusate Sodium [Senokot-S] 1 tab PO DAILY 06/18/19 [History] hydrALAZINE HCL [Apresoline] 100 mg PO TID@0900,1500,2200 06/18/19 [History] Prazosin HCl 4 mg PO TID@0900,1500,2230 09/05/19 [History] Atorvastatin [Lipitor] 40 mg PO HS 01/27/22 [History] Cholecalciferol (Vitamin D3) [Vitamin D3 (125 MCG = 5,000 IU)] 125 mcg PO DAILY 01/27/22 [History] Isosorbide Mononitrate ER [Imdur] 60 mg PO DAILY 01/27/22 [History] Tamsulosin [Flomax] 0.4 mg PO HS 01/27/22 [History] carvediloL [Coreg] 25 mg PO BID 01/27/22 [History] Insulin NPH Hum/Reg Insulin Hm [humuLIN 70/30 Kwikpen] 28 units SQ BID@0900,1700 11/09/22 [History] calcitrioL [Calcitriol] 0.5 mcg PO MOWEFR@0900 12/23/22 [History] cloNIDine HCL [Catapres] 0.3 mg PO TID@0900,1500,2100 02/07/23 [History] Rivaroxaban [Xarelto] 20 mg PO HS #30 tab 02/09/23 [Rx] Ascorbic Acid [Vitamin C] 500 mg PO DAILY 04/16/23 [History] Cholecalciferol [Vitamin D3 (25 Mcg = 1000 Iu)] 50 mcg PO DAILY 04/16/23 [History] Dapagliflozin Propanediol [Farxiga] 5 mg PO DAILY 04/16/23 [History] Ferrous Sulfate [Iron (65 MG Elemental)] 325 mg PO BID 04/16/23 [History] Ipratropium-Albuterol Nebulize [Duoneb 0.5 mg-3 mg/3 ml Soln] 3 ml INHALATION RT-QID PRN 04/16/23 [History] Lactose-Reduced Food [Ensure Plus] 240 ml PO DAILY 04/16/23 [History] Lactulose [Constulose] 10 gm PO Q12HR 04/16/23 [History] Multivitamins, Thera [Multivitamin (formulary)] 1 tab PO DAILY 04/16/23 [History] Amoxic-Pot Clav 400-57Mg/5Ml [Augmentin 400-57 mg/5 ml Susp] 5 ml PO Q12H 5 Days #40 ml 04/20/23 [Rx] Follow up Appointment(s)/Referral(s): Jack De Jesus MD [Primary Care Provider] - 1-2 days Activity/Diet/Wound Care/Special Instructions: [facility] tolerated Recommend follow-up with primary care provider on discharge Recommend outpatient speech pathology support services Recommend aspiration precautions with head of the bed elevated 30-45 at all times with supervision with meals and was evaluated by speech recommending stage III dysphasia chopped diet with honey thickened liquids and okay to have free water 4 ounces between meals Continue antibiotics for 5 days to complete the course Discharge Disposition: TRANSFER TO SNF/ECF
[2023-04-20 16:54] LABS: Glucose,Whole Blood 170 mg/dL (70-110)
[2023-04-20 17:16] VITALS: BP 187/91; PULSE 73
== END 2023-04-20 18:22 | DRG 871 ==
LOC: EC 17:04 → 3SCARD 20:11
PROVIDERS: ADMIT Internal Medicine; ATTEND Internal Medicine
DX: A41.9 Sepsis, unspecified organism (principal); G93.41 Metabolic encephalopathy; J69.0 Pneumonitis due to inhalation of food and vomit; J96.01 Acute respiratory failure with hypoxia; J18.9 Pneumonia, unspecified organism; I13.0 Hypertensive heart and chronic kidney disease with heart failure and stage 1 through stage 4 chronic kidney disease, or unspecified chronic kidney disease; I24.8 Other forms of acute ischemic heart disease; N17.9 Acute kidney failure, unspecified; N18.4 Chronic kidney disease, stage 4 (severe); E11.22 Type 2 diabetes mellitus with diabetic chronic kidney disease; E11.319 Type 2 diabetes mellitus with unspecified diabetic retinopathy without macular edema; E11.42 Type 2 diabetes mellitus with diabetic polyneuropathy; E11.65 Type 2 diabetes mellitus with hyperglycemia; R65.20 Severe sepsis without septic shock; R13.10 Dysphagia, unspecified; E87.6 Hypokalemia; R91.8 Other nonspecific abnormal finding of lung field; E78.5 Hyperlipidemia, unspecified; H91.91 Unspecified hearing loss, right ear; I25.2 Old myocardial infarction; Z86.16 Personal history of COVID-19; Z89.612 Acquired absence of left leg above knee; I50.9 Heart failure, unspecified; Z79.01 Long term (current) use of anticoagulants; Z79.4 Long term (current) use of insulin; Z79.82 Long term (current) use of aspirin; Z79.84 Long term (current) use of oral hypoglycemic drugs; Z79.899 Other long term (current) drug therapy; Z82.49 Family history of ischemic heart disease and other diseases of the circulatory system; Z86.711 Personal history of pulmonary embolism; Z86.718 Personal history of other venous thrombosis and embolism; Z86.73 Personal history of transient ischemic attack (TIA), and cerebral infarction without residual deficits; Z28.311 Partially vaccinated for COVID-19; Z88.1 Allergy status to other antibiotic agents; Z88.8 Allergy status to other drugs, medicaments and biological substances
CPT/HCPCS: 36415; 70450; 71045; 71046; 74230; 80048; 80053; 81001; 83605; 83880; 84145; 84484; 85025; 85610; 85730; 87040; 87077; 87186; 87449; 87635; 93005; 94760; 96365; 96367; 96375; 99291

== ENCOUNTER 2023-04-22 15:17 | Inpatient (IN) | payer MEDICARE ==
--- NOTE | 2023-04-22 15:42 | ED ---
SOB HPI - General Chief Complaint: Shortness of Breath Stated Complaint: JULIO CÉSAR Time Seen by Provider: 04/22/23 15:17 Source: patient, EMS, RN notes reviewed, old records reviewed Mode of arrival: EMS Limitations: altered mental status, physical limitation - History of Present Illness Initial Comments: 77-year-old male with the emergency room by paramedics from [facility] for he is been a resident since April 20 after being discharged following a diagnosis of sepsis right lower lobe pneumonia some other problems. He apparently was found to be dyspneic with a room air pulse ox of 86%. Initial blood pressure was 70/46. Patient apparently is been refusing antibiotics since his arrival at the long-term. He has been demonstrating lethargy per staff there is question whether he might have some right facial droop as he was drooling out of that side. Patient is awake and alert but confused. He did respond to BiPAP. IV was not initially obtained. No reported fever he does state he is this back. He was noted have rhonchi in all lung santiago. MD Complaint: shortness of breath - Related Data Home Medications Medication Instructions Recorded Confirmed Aspirin EC [Ecotrin Low Dose] 81 mg PO DAILY 06/18/19 04/22/23 Sennosides-Docusate Sodium 1 tab PO DAILY 06/18/19 04/22/23 [Senokot-S] hydrALAZINE HCL [Apresoline] 100 mg PO TID@0900,1400,2200 06/18/19 04/22/23 Prazosin HCl 4 mg PO TID@0900,1500,2230 09/05/19 04/22/23 Atorvastatin [Lipitor] 40 mg PO HS 01/27/22 04/22/23 Cholecalciferol (Vitamin D3) 125 mcg PO DAILY 01/27/22 04/22/23 [Vitamin D3 (125 MCG = 5,000 IU)] Isosorbide Mononitrate ER [Imdur] 60 mg PO DAILY 01/27/22 04/22/23 Tamsulosin [Flomax] 0.4 mg PO HS 01/27/22 04/22/23 carvediloL [Coreg] 25 mg PO BID 01/27/22 04/22/23 Insulin NPH Hum/Reg Insulin Hm 27 units SQ DAILY@1700 11/09/22 04/22/23 [humuLIN 70/30 Kwikpen] calcitrioL [Calcitriol] 0.5 mcg PO MOWEFR@0900 12/23/22 04/22/23 cloNIDine HCL [Catapres] 0.3 mg PO TID@0900,1500,2100 02/07/23 04/22/23 Ascorbic Acid [Vitamin C] 500 mg PO DAILY 04/16/23 04/22/23 Dapagliflozin Propanediol [Farxiga] 5 mg PO DAILY 04/16/23 04/22/23 Ferrous Sulfate [Iron (65 MG 325 mg PO BID 04/16/23 04/22/23 Elemental)] Ipratropium-Albuterol Nebulize 3 ml INHALATION RT-QID PRN 04/16/23 04/22/23 [Duoneb 0.5 mg-3 mg/3 ml Soln] Lactose-Reduced Food [Ensure Plus] 237 ml PO DAILY 04/16/23 04/22/23 Lactulose [Constulose] 10 gm PO BID 04/16/23 04/22/23 Multivitamins, Thera [Multivitamin 1 tab PO DAILY 04/16/23 04/22/23 (formulary)] Insulin NPH Hum/Reg Insulin Hm 35 unit SQ DAILY@0900 04/22/23 04/22/23 [humuLIN 70/30 Kwikpen] Previous Rx's Medication Instructions Recorded Rivaroxaban [Xarelto] 20 mg PO HS #30 tab 02/09/23 Amoxic-Pot Clav 400-57Mg/5Ml 5 ml PO Q12H 5 Days #40 ml 04/20/23 [Augmentin 400-57 mg/5 ml Susp] Allergies Allergy/AdvReac Type Severity Reaction Status Date / Time amlodipine Allergy Anaphylaxis Verified 04/22/23 16:37 lisinopril Allergy tongue Verified 04/22/23 16:37 swelling vancomycin Allergy seizure Verified 04/22/23 16:37 like activity Review of Systems ROS Statement: Those systems with pertinent positive or pertinent negative responses have been documented in the HPI. ROS Other: All systems not noted in ROS Statement are negative. Past Medical History Past Medical History: Heart Failure, Diabetes Mellitus, Deep Vein Thrombosis (DVT), Hyperlipidemia, Hypertension, Syncope Additional Past Medical History / Comment(s): other hx:per pt's "xray noted lung nodules". 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, L foot gr toe, 3rd &2nd toe amputated; Rfoot 3rd toe amputated, Bypass in Bilat legs, eulogio knee sx(cartilage), lt arm picc line.since removed, x3 sx total facial plastic sx and grafting done area under lt eye d/t injury, Ackerman placement.-rt upper chest/removed Past Anesthesia/Blood Transfusion Reactions: Postoperative Nausea & Vomiting (PONV) Additional Past Anesthesia/Blood Transfusion Reaction / Comment(s): never recieved blood Past Psychological History: No Psychological Hx Reported Smoking Status: Never smoker Past Alcohol Use History: None Reported Past Drug Use History: None Reported - Past Family History Father Family Medical History: Deep Vein Thrombosis (DVT) Additional Family Medical History / Comment(s): had valve sx- a week later from complications Mother Family Medical History: Congestive Heart Failure (CHF) Additional Family Medical History / Comment(s): phlebitis General Exam - General Exam Comments Initial Comments: This is a well-developed well-nourished awake alert but confused male he is on BiPAP. Limitations: altered mental status, physical limitation General appearance: alert, lethargic Head exam: Present: atraumatic, normocephalic, normal inspection Eye exam: Present: PERRL, EOMI, conjunctival injection, other (Left eyelid lags this is chronic with some injection noted). Absent: scleral icterus, periorbital swelling ENT exam: Present: other (Patient is on BiPAP no discernible facial asymmetry noted at this time.) Neck exam: Present: normal inspection, full ROM, other (Inferiorbruits) Respiratory exam: Present: respiratory distress, rhonchi (Diffuse rhonchi), accessory muscle use, decreased breath sounds Extremities exam: Present: other ([id number] amputation on the left.) Neurological exam: Present: alert, altered. Absent: motor sensory deficit Psychiatric exam: Present: anxious Skin exam: Present: diaphoretic Course Vital Signs 04/22/23 04/22/23 04/22/23 15:20 15:22 15:28 Temperature 96.7 F L Pulse Rate 97 Respiratory 26 H 26 H Rate Blood Pressure 108/76 O2 Sat by Pulse 97 Oximetry Fraction of 100 Inspired Oxygen (FIO2) 04/22/23 04/22/23 04/22/23 15:39 15:49 16:10 Temperature Pulse Rate 96 92 98 Respiratory 30 H 28 H 22 Rate Blood Pressure 95/64 91/63 117/83 O2 Sat by Pulse 99 99 100 Oximetry Fraction of Inspired Oxygen (FIO2) 04/22/23 04/22/23 04/22/23 16:24 17:00 18:00 Temperature Pulse Rate 98 98 103 H Respiratory 22 18 18 Rate Blood Pressure 119/80 131/83 103/77 O2 Sat by Pulse 100 99 99 Oximetry Fraction of Inspired Oxygen (FIO2) 04/22/23 04/22/23 04/22/23 19:00 20:54 21:00 Temperature Pulse Rate 105 H 105 H 108 H Respiratory 18 16 16 Rate Blood Pressure 129/79 123/84 133/88 O2 Sat by Pulse 99 99 99 Oximetry Fraction of Inspired Oxygen (FIO2) - Reevaluation(s) Reevaluation #1: 04/22/23 16:23 EKG compared with that of 04/16/23 showing similar configuration Reevaluation #2: 04/22/23 21:29 Responding to the therapy discuss far. He is proved blood pressure breathing have improved Medical Decision Making - Medical Decision Making I did discuss the findings with the patient who is now awake and alert. Imaging was interpreted by me. X-ray showed evidence of persistent infiltrate no pneum othorax CT the brain showed atrophy but no evidence of acute process. No evidence of stroke or TIA type symptoms at this time he did demonstrate hypoxemia as well as hypotension. He has been refusing antibiotics apparently. Patient does have an mildly elevated troponin 0.092 he is covid 19 positive He will be admitted I did discuss this with Dr. Juarez. The only lactic acid is likely on the basis of by me depletion. Was pt. sent in by a medical professional or institution (, [facility], [facility], urgent care, hospital, or long-term...) When possible be specific @ -[facility] Did you speak to anyone other than the patient for history (EMS, parent, family, police, friend...)? What history was obtained from this source @ -Paramedics upon arrival Did you review nursing and triage notes (agree or disagree)? Why? @ -I reviewed and agree with nursing and triage notes Were old charts reviewed (outside hosp., previous admission, EMS record, old EKG, old radiological studies, urgent care reports/EKG's, long-term records)? Report findings @ -Previous admission charts were reviewed Differential Diagnosis (chest pain, altered mental status, abdominal pain women, abdominal pain men, vaginal bleeding, weakness, fever, dyspnea, syncope, headache, dizziness, GI bleed, back pain, seizure, CVA, palpatations, mental health, musculoskeletal)? @ -Respiratory failure, CHF, progressive pneumonia with failed outpatient treatment COPD exacerbation EKG interpreted by me (3pts min.). @ -As above. No acute process and no change from previous EKGs X-rays interpreted by me (1pt min.). @ -As above CT interpreted by me (1pt min.). @ -None done U/S interpreted by me (1pt. min.). @ -None done What testing was considered but not performed or refused? (CT, X-rays, U/S, labs)? Why? @ -None] What meds were considered but not given or refused? Why? @ -[None] Did you discuss the management of the patient with other professionals (professionals i.e. , [facility], [facility], lab, RT, psych nurse, hospital social worker, full stack software developer, teacher, v/stol landing signal officer, pillowcase sewer)? Give summary @ -[ Sheet] Was smoking cessation discussed for >3mins.? @ -[No] Was critical care preformed (if so, how long)? @ -[] Were there social determinants of health that impacted care today? How? (Homelessness, low income, unemployed, alcoholism, drug addiction, transportation, low edu. Level, literacy, decrease access to med. care, long-term, rehab)? @ -[No] Was there de-escalation of care discussed even if they declined (Discuss DNR or withdrawal of care, Hospice)? DNR status @ -[No] What co-morbidities impacted this encounter? (DM, HTN, Smoking, COPD, CAD, Cancer, CVA, ARF, Chemo, Hep., AIDS, mental health diagnosis, sleep apnea, morbid obesity)? @ -[Right lower lobe pneumonia, metabolic encephalopathy type 2 diabetes history of sepsis history of heart failure history DVT if she hypertension] Was patient admitted / discharged? Hospital course, mention meds given and ro shey, prescriptions, significant lab abnormalities, going to OR and other pertinent info. @ -[The patient was admitted] Undiagnosed new problem with uncertain prognosis? @ -[Dehydration with hypoxemia and hypotension] Drug Therapy requiring intensive monitoring for toxicity (Heparin, Nitro, Insulin, Cardizem)? @ -[No] Were any procedures done? @ -[No] Diagnosis/symptom? @ -[COPD exacerbation, pneumonia, hypotensive episode, lactic acidosis, dehydration, outpatient treatment failure, Covid 19] Acute, or Chronic, or Acute on Chronic? @ -[Acute on chronic] Uncomplicated (without systemic symptoms) or Complicated (systemic symptoms)? @ -[default] Side effects of treatment? @ -[No] Exacerbation, Progression, or Severe Exacerbation? @ -[Exacerbation] Poses a threat to life or bodily function? How? (Chest pain, [place], HI, pneumonia, PE, COPD, DKA, ARF, appy, cholecystitis, CVA, Diverticulitis, Homicidal, Suicidal, threat to staff... and all critical care pts) @ -[Dehydration, hypotensive episode, hypoxemia] - Lab Data Result diagrams: 04/22/23 15:37 04/22/23 16:50 Lab Results 04/22/23 04/22/23 04/22/23 Range/Units 15:37 15:37 15:37 WBC 12.9 H (3.8-10.6) k/uL RBC 5.76 (4.30-5.90) m/uL Hgb 14.7 D (13.0-17.5) gm/dL Hct 47.3 (39.0-53.0) % MCV 82.0 (80.0-100.0) fL MCH 25.5 (25.0-35.0) pg MCHC 31.1 (31.0-37.0) g/dL RDW 17.8 H (11.5-15.5) % Plt Count 288 (150-450) k/uL MPV 9.6 Neutrophils % 85 % Lymphocytes % 6 % Monocytes % 5 % Eosinophils % 3 % Basophils % 0 % Neutrophils # 10.9 H (1.3-7.7) k/uL Lymphocytes # 0.8 L (1.0-4.8) k/uL Monocytes # 0.6 (0-1.0) k/uL Eosinophils # 0.4 (0-0.7) k/uL Basophils # 0.0 (0-0.2) k/uL Hypochromasia Slight Anisocytosis Slight Microcytosis Slight VBG pH (7.31-7.41) VBG pCO2 (37-51) mmHg VBG HCO3 (24-28) mmol/L Sodium (137-145) mmol/L Potassium (3.5-5.1) mmol/L Chloride (98-107) mmol/L Carbon Dioxide (22-30) mmol/L Anion Gap mmol/L BUN (9-20) mg/dL Creatinine (0.66-1.25) mg/dL Est GFR (CKD-EPI)AfAm (>60 ml/min/1.73 sqM) Est GFR (CKD-EPI)NonAf (>60 ml/min/1.73 sqM) Glucose (74-99) mg/dL Lactic Ac Sepsis Rflx Plasma Lactic Acid Pablito 2.3 H* (0.7-2.0) mmol/L Calcium (8.4-10.2) mg/dL Magnesium (1.6-2.3) mg/dL Total Bilirubin (0.2-1.3) mg/dL AST (17-59) U/L ALT (4-49) U/L Alkaline Phosphatase (38-126) U/L Ammonia 13 (<30) umol/L Creatine Kinase (55-170) U/L Troponin I (0.000-0.034) ng/mL NT-Pro-B Natriuret Pep 48844 pg/mL Total Protein (6.3-8.2) g/dL Albumin (3.5-5.0) g/dL Influenza Type A (PCR) (Not Detectd) Influenza Type B (PCR) (Not Detectd) RSV (PCR) (Not Detectd) SARS-CoV-2 (PCR) (Not Detectd) 04/22/23 04/22/23 04/22/23 Range/Units 15:37 15:39 16:45 WBC (3.8-10.6) k/uL RBC (4.30-5.90) m/uL Hgb (13.0-17.5) gm/dL Hct (39.0-53.0) % MCV (80.0-100.0) fL MCH (25.0-35.0) pg MCHC (31.0-37.0) g/dL RDW (11.5-15.5) % Plt Count (150-450) k/uL MPV Neutrophils % % Lymphocytes % % Monocytes % % Eosinophils % % Basophils % % Neutrophils # (1.3-7.7) k/uL Lymphocytes # (1.0-4.8) k/uL Monocytes # (0-1.0) k/uL Eosinophils # (0-0.7) k/uL Basophils # (0-0.2) k/uL Hypochromasia Anisocytosis Microcytosis VBG pH 7.35 (7.31-7.41) VBG pCO2 39 (37-51) mmHg VBG HCO3 21 L (24-28) mmol/L Sodium (137-145) mmol/L Potassium (3.5-5.1) mmol/L Chloride (98-107) mmol/L Carbon Dioxide (22-30) mmol/L Anion Gap mmol/L BUN (9-20) mg/dL Creatinine (0.66-1.25) mg/dL Est GFR (CKD-EPI)AfAm (>60 ml/min/1.73 sqM) Est GFR (CKD-EPI)NonAf (>60 ml/min/1.73 sqM) Glucose (74-99) mg/dL Lactic Ac Sepsis Rflx Y Plasma Lactic Acid Pablito (0.7-2.0) mmol/L Calcium (8.4-10.2) mg/dL Magnesium (1.6-2.3) mg/dL Total Bilirubin (0.2-1.3) mg/dL AST (17-59) U/L ALT (4-49) U/L Alkaline Phosphatase (38-126) U/L Ammonia (<30) umol/L Creatine Kinase (55-170) U/L Troponin I (0.000-0.034) ng/mL NT-Pro-B Natriuret Pep pg/mL Total Protein (6.3-8.2) g/dL Albumin (3.5-5.0) g/dL Influenza Type A (PCR) Not Detected (Not Detectd) Influenza Type B (PCR) Not Detected (Not Detectd) RSV (PCR) Not Detected (Not Detectd) SARS-CoV-2 (PCR) Detected A (Not Detectd) 04/22/23 04/22/23 Range/Units 16:50 16:50 WBC (3.8-10.6) k/uL RBC (4.30-5.90) m/uL Hgb (13.0-17.5) gm/dL Hct (39.0-53.0) % MCV (80.0-100.0) fL MCH (25.0-35.0) pg MCHC (31.0-37.0) g/dL RDW (11.5-15.5) % Plt Count (150-450) k/uL MPV Neutrophils % % Lymphocytes % % Monocytes % % Eosinophils % % Basophils % % Neutrophils # (1.3-7.7) k/uL Lymphocytes # (1.0-4.8) k/uL Monocytes # (0-1.0) k/uL Eosinophils # (0-0.7) k/uL Basophils # (0-0.2) k/uL Hypochromasia Anisocytosis Microcytosis VBG pH (7.31-7.41) VBG pCO2 (37-51) mmHg VBG HCO3 (24-28) mmol/L Sodium 142 (137-145) mmol/L Potassium 4.1 (3.5-5.1) mmol/L Chloride 111 H (98-107) mmol/L Carbon Dioxide 19 L (22-30) mmol/L Anion Gap 12 mmol/L BUN 31 H (9-20) mg/dL Creatinine 1.79 H (0.66-1.25) mg/dL Est GFR (CKD-EPI)AfAm 42 (>60 ml/min/1.73 sqM) Est GFR (CKD-EPI)NonAf 36 (>60 ml/min/1.73 sqM) Glucose 247 H (74-99) mg/dL Lactic Ac Sepsis Rflx Plasma Lactic Acid Pablito (0.7-2.0) mmol/L Calcium 8.7 (8.4-10.2) mg/dL Magnesium 2.2 (1.6-2.3) mg/dL Total Bilirubin 0.7 (0.2-1.3) mg/dL AST 31 (17-59) U/L ALT 23 (4-49) U/L Alkaline Phosphatase 95 (38-126) U/L Ammonia (<30) umol/L Creatine Kinase 54 L (55-170) U/L Troponin I 0.092 H* (0.000-0.034) ng/mL NT-Pro-B Natriuret Pep pg/mL Total Protein 6.0 L (6.3-8.2) g/dL Albumin 3.3 L (3.5-5.0) g/dL Influenza Type A (PCR) (Not Detectd) Influenza Type B (PCR) (Not Detectd) RSV (PCR) (Not Detectd) SARS-CoV-2 (PCR) (Not Detectd) - EKG Data -: EKG Interpreted by Me EKG Comments: EKG interpreted by me at the time of service sinus rhythm at 90. A 152 QRS duration 109 QT since QTC 390/446 evidence of old inferior changes - Radiology Data Interpreted by me: I did interpret the imaging evidence of right medial lower lung field infiltrate no pneumothorax seen Critical Care Time Critical Care Time: Yes Total Critical Care Time: 35 Disposition Clinical Impression: Respiratory distress, Pneumonia, COVID-19, Dehydration, Hypotensive episode, Lactic acidosis, Hypoxemia, Elevated troponin, Failure of outpatient treatment, Diabetes Disposition: ADMITTED IP TO THIS HOSP Condition: Fair Referrals: Davon Rocha MD [Primary Care Provider] - 1-2 days Decision Date: 04/22/23 Decision Time: 20:35
[2023-04-22] MEDS ORDERED: SODIUM CHLORIDE 0.9% 1,000 ML IV STA ×2 (15:57)
[2023-04-22] MEDS ORDERED: PIPERACILLIN-TAZOBACTAM 3.375 GM in SODIUM CHLORIDE 0.9% 100 ML IVPB STA (15:58)
--- NOTE | 2023-04-22 16:12 | CT ---
EXAMINATION TYPE: CT brain wo con DATE OF EXAM: 04/22/2023 COMPARISON: 04/16/23 HISTORY: AMS. R/O stroke. CT DLP: 1170.[address] of the brain was performed. The ventricles, basal cisterns and sulci overlying the cerebral convexities demonstrate mild enlargem ent. Remote insult posterior left parietal region. There is no evidence for intracranial hemorrhage or sulcal effacement. There is decreased attenuation about the periventricular white matter and deep white matter of both c erebral hemispheres, compatible with chronic small vessel ischemia. Differential diagnosis does inclu de demyelination. No mass effects are seen.No midline shift. Osseous calvarium is intact. If symptoms persist consider MRI. IMPRESSION: 1. Age related atrophic and chronic small vessel ischemic change without acute intracranial process s een at this time.
[2023-04-22 16:16] LABS: Anisocytosis Slight; Basophils % (A) 0 %; Eosinophils # (A) 0.4 k/uL (0-0.7); Eosinophils % (A) 3 %; HCT 47.3 % (39.0-53.0); Hypochromasia Slight; Lymphocytes # (A) 0.8 k/uL (1.0-4.8); Lymphocytes % (A) 6 %; MCH 25.5 pg (25.0-35.0); MCHC 31.1 g/dL (31.0-37.0); Mean Platelet Volume 9.6; Microcytosis Slight; Monocytes # (A) 0.6 k/uL (0-1.0); Monocytes % (A) 5 %; Neutrophils # (A) 10.9 k/uL (1.3-7.7); Neutrophils % (A) 85 %; Platelet Count 288 k/uL (150-450); RBC 5.76 m/uL (4.30-5.90); RDW 17.8 % (11.5-15.5); WBC 12.9 k/uL (3.8-10.6)
--- NOTE | 2023-04-22 16:29 | XR ---
EXAMINATION TYPE: XR chest 1V portable DATE OF EXAM: 04/22/2023 HISTORY: Shortness of breath. COMPARISON: 04/09/2023 TECHNIQUE: Single view of the chest is submitted. FINDINGS: Demonstrated are scattered senescent parenchymal change. Right infrahilar density persists which may reflect underlying infiltrate although there may be sligh t improvement in the interval. The heart is stable. Hilar and mediastinal structures are within normal limits. Degenerative changes are seen of the dorsal spine. IMPRESSION: 1. Right infrahilar density persists which may reflect underlying infiltrate although there may be s light improvement in the interval.
[2023-04-22 16:31] LABS: HGB 14.7 gm/dL (13.0-17.5)
[2023-04-22 16:34] LABS: VBG PH 7.35 (7.31-7.41)
[2023-04-22 16:45] LABS: Lactic Acid, Venous 2.3 mmol/L (0.7-2.0)
[2023-04-22 17:30] LABS: Albumin 3.3 g/dL (3.5-5.0); Calcium 8.7 mg/dL (8.4-10.2); Magnesium 2.2 mg/dL (1.6-2.3); Potassium 4.1 mmol/L (3.5-5.1); Total Bilirubin 0.7 mg/dL (0.2-1.3)
[2023-04-22] MEDS ORDERED: ACETAMINOPHEN TAB 325 MG TAB PO PRN (21:41)
[2023-04-22] MEDS ORDERED: ONDANSETRON 4 MG/2 ML VIAL IVP PRN (21:41)
[2023-04-22] MEDS ORDERED: NALOXONE 0.4 MG/ML 1 ML VIAL IV PRN (21:41)
--- NOTE | 2023-04-22 21:52 | ED ---
Medical Decision Making - Lab Data Result diagrams: 04/22/23 15:37 04/22/23 16:50 Lab Results 04/22/23 04/22/23 04/22/23 Range/Units 15:37 15:37 15:37 WBC 12.9 H (3.8-10.6) k/uL RBC 5.76 (4.30-5.90) m/uL Hgb 14.7 D (13.0-17.5) gm/dL Hct 47.3 (39.0-53.0) % MCV 82.0 (80.0-100.0) fL MCH 25.5 (25.0-35.0) pg MCHC 31.1 (31.0-37.0) g/dL RDW 17.8 H (11.5-15.5) % Plt Count 288 (150-450) k/uL MPV 9.6 Neutrophils % 85 % Lymphocytes % 6 % Monocytes % 5 % Eosinophils % 3 % Basophils % 0 % Neutrophils # 10.9 H (1.3-7.7) k/uL Lymphocytes # 0.8 L (1.0-4.8) k/uL Monocytes # 0.6 (0-1.0) k/uL Eosinophils # 0.4 (0-0.7) k/uL Basophils # 0.0 (0-0.2) k/uL Hypochromasia Slight Anisocytosis Slight Microcytosis Slight VBG pH (7.31-7.41) VBG pCO2 (37-51) mmHg VBG HCO3 (24-28) mmol/L Sodium (137-145) mmol/L Potassium (3.5-5.1) mmol/L Chloride (98-107) mmol/L Carbon Dioxide (22-30) mmol/L Anion Gap mmol/L BUN (9-20) mg/dL Creatinine (0.66-1.25) mg/dL Est GFR (CKD-EPI)AfAm (>60 ml/min/1.73 sqM) Est GFR (CKD-EPI)NonAf (>60 ml/min/1.73 sqM) Glucose (74-99) mg/dL Lactic Ac Sepsis Rflx Plasma Lactic Acid Pablito 2.3 H* (0.7-2.0) mmol/L Calcium (8.4-10.2) mg/dL Magnesium (1.6-2.3) mg/dL Total Bilirubin (0.2-1.3) mg/dL AST (17-59) U/L ALT (4-49) U/L Alkaline Phosphatase (38-126) U/L Ammonia 13 (<30) umol/L Creatine Kinase (55-170) U/L Troponin I (0.000-0.034) ng/mL NT-Pro-B Natriuret Pep 49469 pg/mL Total Protein (6.3-8.2) g/dL Albumin (3.5-5.0) g/dL Influenza Type A (PCR) (Not Detectd) Influenza Type B (PCR) (Not Detectd) RSV (PCR) (Not Detectd) SARS-CoV-2 (PCR) (Not Detectd) 04/22/23 04/22/23 04/22/23 Range/Units 15:37 15:39 16:45 WBC (3.8-10.6) k/uL RBC (4.30-5.90) m/uL Hgb (13.0-17.5) gm/dL Hct (39.0-53.0) % MCV (80.0-100.0) fL MCH (25.0-35.0) pg MCHC (31.0-37.0) g/dL RDW (11.5-15.5) % Plt Count (150-450) k/uL MPV Neutrophils % % Lymphocytes % % Monocytes % % Eosinophils % % Basophils % % Neutrophils # (1.3-7.7) k/uL Lymphocytes # (1.0-4.8) k/uL Monocytes # (0-1.0) k/uL Eosinophils # (0-0.7) k/uL Basophils # (0-0.2) k/uL Hypochromasia Anisocytosis Microcytosis VBG pH 7.35 (7.31-7.41) VBG pCO2 39 (37-51) mmHg VBG HCO3 21 L (24-28) mmol/L Sodium (137-145) mmol/L Potassium (3.5-5.1) mmol/L Chloride (98-107) mmol/L Carbon Dioxide (22-30) mmol/L Anion Gap mmol/L BUN (9-20) mg/dL Creatinine (0.66-1.25) mg/dL Est GFR (CKD-EPI)AfAm (>60 ml/min/1.73 sqM) Est GFR (CKD-EPI)NonAf (>60 ml/min/1.73 sqM) Glucose (74-99) mg/dL Lactic Ac Sepsis Rflx Y Plasma Lactic Acid Pablito (0.7-2.0) mmol/L Calcium (8.4-10.2) mg/dL Magnesium (1.6-2.3) mg/dL Total Bilirubin (0.2-1.3) mg/dL AST (17-59) U/L ALT (4-49) U/L Alkaline Phosphatase (38-126) U/L Ammonia (<30) umol/L Creatine Kinase (55-170) U/L Troponin I (0.000-0.034) ng/mL NT-Pro-B Natriuret Pep pg/mL Total Protein (6.3-8.2) g/dL Albumin (3.5-5.0) g/dL Influenza Type A (PCR) Not Detected (Not Detectd) Influenza Type B (PCR) Not Detected (Not Detectd) RSV (PCR) Not Detected (Not Detectd) SARS-CoV-2 (PCR) Detected A (Not Detectd) 04/22/23 04/22/23 Range/Units 16:50 16:50 WBC (3.8-10.6) k/uL RBC (4.30-5.90) m/uL Hgb (13.0-17.5) gm/dL Hct (39.0-53.0) % MCV (80.0-100.0) fL MCH (25.0-35.0) pg MCHC (31.0-37.0) g/dL RDW (11.5-15.5) % Plt Count (150-450) k/uL MPV Neutrophils % % Lymphocytes % % Monocytes % % Eosinophils % % Basophils % % Neutrophils # (1.3-7.7) k/uL Lymphocytes # (1.0-4.8) k/uL Monocytes # (0-1.0) k/uL Eosinophils # (0-0.7) k/uL Basophils # (0-0.2) k/uL Hypochromasia Anisocytosis Microcytosis VBG pH (7.31-7.41) VBG pCO2 (37-51) mmHg VBG HCO3 (24-28) mmol/L Sodium 142 (137-145) mmol/L Potassium 4.1 (3.5-5.1) mmol/L Chloride 111 H (98-107) mmol/L Carbon Dioxide 19 L (22-30) mmol/L Anion Gap 12 mmol/L BUN 31 H (9-20) mg/dL Creatinine 1.79 H (0.66-1.25) mg/dL Est GFR (CKD-EPI)AfAm 42 (>60 ml/min/1.73 sqM) Est GFR (CKD-EPI)NonAf 36 (>60 ml/min/1.73 sqM) Glucose 247 H (74-99) mg/dL Lactic Ac Sepsis Rflx Plasma Lactic Acid Pablito (0.7-2.0) mmol/L Calcium 8.7 (8.4-10.2) mg/dL Magnesium 2.2 (1.6-2.3) mg/dL Total Bilirubin 0.7 (0.2-1.3) mg/dL AST 31 (17-59) U/L ALT 23 (4-49) U/L Alkaline Phosphatase 95 (38-126) U/L Ammonia (<30) umol/L Creatine Kinase 54 L (55-170) U/L Troponin I 0.092 H* (0.000-0.034) ng/mL NT-Pro-B Natriuret Pep pg/mL Total Protein 6.0 L (6.3-8.2) g/dL Albumin 3.3 L (3.5-5.0) g/dL Influenza Type A (PCR) (Not Detectd) Influenza Type B (PCR) (Not Detectd) RSV (PCR) (Not Detectd) SARS-CoV-2 (PCR) (Not Detectd) Disposition Clinical Impression: Respiratory distress, Pneumonia, COVID-19, Dehydration, Hypotensive episode, Lactic acidosis, Hypoxemia, Elevated troponin, Failure of outpatient treatment, Diabetes, Noncompliance Disposition: [facility] Condition: Fair Referrals: Davon Rocha MD [Primary Care Provider] - 1-2 days Decision Date: 04/22/23 Decision Time: 21:51
[2023-04-22] MEDS: SODIUM CHLORIDE 0.9% 1,000 ML IV SCH (22:44)
[2023-04-22] MEDS: hydrALAZINE HCL 50 MG TAB PO SCH (22:52)
[2023-04-22] MEDS: PRAZOSIN 1 MG CAP PO SCH (22:53)
[2023-04-22] MEDS: PIPERACILLIN-TAZOBACTAM 3.375 GM in SODIUM CHLORIDE 0.9% 100 ML IVPB SCH (23:21)
[2023-04-23] MEDS: IPRATROPIUM-ALBUTEROL 3 ML NEB INHALATION SCH ×4 (03:00→20:45)
[2023-04-23] MEDS: SODIUM CHLORIDE 0.9% 1,000 ML IV SCH (05:38)
[2023-04-23] MEDS ORDERED: ISOSORBIDE MONONITRATE ER 60 MG TAB.ER.24H PO SCH (09:00)
[2023-04-23] MEDS ORDERED: INSULN ASP PRT/INSULIN ASPART 100 UNIT/ML 10 ML VIAL SQ SCH ×2 (09:00→17:00)
[2023-04-23] MEDS ORDERED: PANTOPRAZOLE 40 MG/10 ML VIAL IV SCH (09:00)
[2023-04-23] MEDS ORDERED: NON FORMULARY DRUG (Lactose-Reduced Food [Ensure Plus] 237 ML Ml) PO SCH (09:00)
[2023-04-23] MEDS: carvediloL 12.5 MG TAB PO SCH ×3 (09:22→20:05)
[2023-04-23] MEDS: FERROUS SULFATE 325 MG TAB PO SCH ×3 (09:22→20:05)
[2023-04-23] MEDS: ASCORBIC ACID 500 MG TAB PO SCH ×2 (09:23→10:55)
[2023-04-23] MEDS: SENNOSIDES-DOCUSATE SODIUM 1 EACH TAB PO SCH (09:23)
[2023-04-23] MEDS: ASPIRIN 81 MG PO SCH ×2 (09:23→10:55)
[2023-04-23] MEDS: CHOLECALCIFEROL 125 MCG (5000 IU) TABLET PO SCH ×2 (09:23→10:55)
[2023-04-23] MEDS: hydrALAZINE HCL 50 MG TAB PO SCH ×4 (09:23→20:06)
[2023-04-23] MEDS: cloNIDine HCL 0.1 MG TAB PO SCH ×4 (09:23→20:06)
[2023-04-23] MEDS: LACTULOSE 20 GM/30 ML CUP PO SCH ×3 (09:23→20:05)
[2023-04-23] MEDS: MULTIVITAMINS, THERA 1 EACH TAB PO SCH (09:23)
[2023-04-23] MEDS: DAPAGLIFLOZIN PROPANEDIOL 5 MG TABLET PO SCH ×2 (09:24→10:55)
[2023-04-23] MEDS: PRAZOSIN 1 MG CAP PO SCH ×4 (09:24→20:06)
[2023-04-23] MEDS: PIPERACILLIN-TAZOBACTAM 3.375 GM in SODIUM CHLORIDE 0.9% 100 ML IVPB SCH ×2 (09:25→16:14)
[2023-04-23 09:32] LABS: Glucose,Whole Blood 196 mg/dL (70-110)
[2023-04-23] MEDS ORDERED: QUEtiapine 25 MG TAB PO PRN (11:15)
[2023-04-23] MEDS ORDERED: DEXTROSE 50% SYRINGE 50 ML IVP PRN ×2 (11:34)
[2023-04-23] MEDS: DEXAMETHASONE SOD PHOSPHATE 10 MG/ML 1 ML VIAL IVP SCH (11:38)
--- NOTE | 2023-04-23 11:55 | P.CNPUL ---
History of Present Illness Consult date: 04/23/23 Reason for consult: dyspnea, hypoxemia, pneumonia History of present illness: This patient was discharged on home on 04/20/2023 after being treated for a right lower lobe pneumonia that was considered to be aspiration. His swallow evaluation was done at that time and the patient had penetration with all consistencies. The patient was given Augmentin at time of discharge. He came into the emergency department yesterday with shortness of breath and hypoxemia and the patient's pulse ox was 86% on room air oxygen and the patient's initial blood pressure was 70/40. He was at the skilled nursing. He demonstrated also lethargy. No reported fever. He did test however positive for Covid 19 during this current admission and a repeat chest x-ray was done that showed some limited infiltration of the right lung base although chest x-ray findings were improving. The patient is currently on 2 L of O2 nasal cannula. The patient did encounter also an episode of emesis and possible aspiration this morning as reported by the nursing staff. At the time on evaluation, the patient was stable and he did not have any labored breathing. Abdomen was soft and nontender. No abdominal pain or distention. No reported nausea. He is afebrile and hemodynamically stable. He is on 2 L of O2 nasal cannula and a white cell count is at 12.9 with a hemoglobin of 14.7, BUN is 30 over a creatinine of 1.7 and sodium levels of 142 and a potassium level is at 4.1. Noted the patient has an acute kidney injury from which she was recovering and he does have an underlying chronic kidney disease stage III. ProBNP level was 26,000 and troponin was at 0.09 at the time of his admission. Covid 19 was again positive. Noted the patient has been infected with Covid 19 in the past Review of Systems Constitutional: Reports daytime sleepiness, Reports fatigue, Reports lethargy Eyes: bilateral decreased vision, denies as per HPI, denies blurred vision, denies bulging eye, denies diplopia, denies discharge, denies dry eye, denies irritation, denies itching, denies pain, denies photophobia, denies loss of peripheral vision, denies loss of vision, denies tunnel vision/blind spots Ears: bilateral: decreased hearing, deny: ear discharge, earache, tinnitus Ears, nose, mouth and throat: Reports dysphagia Breasts: absent: as per HPI, gynecomastia Cardiovascular: Reports dyspnea on exertion Respiratory: Reports dyspnea Gastrointestinal: Reports as per HPI Genitourinary: Reports as per HPI Musculoskeletal: Reports as per HPI, Reports prior amputations Musculoskeletal: absent: ankle pain, ankle stiffness, ankle swelling Integumentary: Reports as per HPI Neurological: Reports as per HPI Psychiatric: Reports as per HPI Endocrine: Reports as per HPI Past Medical History Past Medical History: Heart Failure, Diabetes Mellitus, Deep Vein Thrombosis (DVT), Hyperlipidemia, Hypertension, Syncope Additional Past Medical History / Comment(s): other hx:per pt's "xray noted lung nodules". 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, L foot gr toe, 3rd &2nd toe amputated; Rfoot 3rd toe amputated, Bypass in Bilat legs, eulogio knee sx(cartilage), lt arm picc line.since removed, x3 sx t otal facial plastic sx and grafting done area under lt eye d/t injury, Ackerman placement.-rt upper chest/removed Past Anesthesia/Blood Transfusion Reactions: Postoperative Nausea & Vomiting (PONV) Additional Past Anesthesia/Blood Transfusion Reaction / Comment(s): never recieved blood Past Psychological History: No Psychological Hx Reported Additional Psychological History / Comment(s): Patient is and lives at home with his . There are no pets in the home. No service. Star alok has lived in [place] and [place]. 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 Patient is moved to this area to be close to his children. No significant history of alcohol or recreational drug use. No international travel. No animal exposures. Smoking Status: Never smoker Past Alcohol Use History: None Reported Additional Past Alcohol Use History / Comment(s): Patient is and lives at home with his . There are no pets in the home. No service. Patient has lived in [facility]. 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 Patient is moved to this area to be close to his children. No significant history of alcohol or recreational drug use. No international travel. No animal exposures. Past Drug Use History: None Reported - Past Family History Father Family Medical History: Deep Vein Thrombosis (DVT) Additional Family Medical History / Comment(s): had valve sx- a week later from complications Mother Family Medical History: Congestive Heart Failure (CHF) Additional Family Medical History / Comment(s): phlebitis Medications and Allergies Home Medications Medication Instructions Recorded Confirmed Type Aspirin EC [Ecotrin Low Dose] 81 mg PO DAILY 06/18/19 04/22/23 History Sennosides-Docusate Sodium 1 tab PO DAILY 06/18/19 04/22/23 History [Senokot-S] hydrALAZINE HCL [Apresoline] 100 mg PO TID@0900,1400,2200 06/18/19 04/22/23 History Prazosin HCl 4 mg PO TID@0900,1500,2230 09/05/19 04/22/23 History Atorvastatin [Lipitor] 40 mg PO HS 01/27/22 04/22/23 History Cholecalciferol (Vitamin D3) 125 mcg PO DAILY 01/27/22 04/22/23 History [Vitamin D3 (125 MCG = 5,000 IU)] Isosorbide Mononitrate ER [Imdur] 60 mg PO DAILY 01/27/22 04/22/23 History Tamsulosin [Flomax] 0.4 mg PO HS 01/27/22 04/22/23 History carvediloL [Coreg] 25 mg PO BID 01/27/22 04/22/23 History Insulin NPH Hum/Reg Insulin Hm 27 units SQ DAILY@1700 11/09/22 04/22/23 History [humuLIN 70/30 Kwikpen] calcitrioL [Calcitriol] 0.5 mcg PO MOWEFR@0900 12/23/22 04/22/23 History cloNIDine HCL [Catapres] 0.3 mg PO TID@0900,1500,2100 02/07/23 04/22/23 History Rivaroxaban [Xarelto] 20 mg PO HS #30 tab 02/09/23 04/22/23 Rx Ascorbic Acid [Vitamin C] 500 mg PO DAILY 04/16/23 04/22/23 History Dapagliflozin Propanediol [Farxiga] 5 mg PO DAILY 04/16/23 04/22/23 History Ferrous Sulfate [Iron (65 MG 325 mg PO BID 04/16/23 04/22/23 History Elemental)] Ipratropium-Albuterol Nebulize 3 ml INHALATION RT-QID PRN 04/16/23 04/22/23 History [Duoneb 0.5 mg-3 mg/3 ml Soln] Lactose-Reduced Food [Ensure Plus] 237 ml PO DAILY 04/16/23 04/22/23 History Lactulose [Constulose] 10 gm PO BID 04/16/23 04/22/23 History Multivitamins, Thera [Multivitamin 1 tab PO DAILY 04/16/23 04/22/23 History (formulary)] Amoxic-Pot Clav 400-57Mg/5Ml 5 ml PO Q12H 5 Days #40 ml 04/20/23 04/22/23 Rx [Augmentin 400-57 mg/5 ml Susp] Insulin NPH Hum/Reg Insulin Hm 35 unit SQ DAILY@0900 04/22/23 04/22/23 History [humuLIN 70/30 Kwikpen] Allergies Allergy/AdvReac Type Severity Reaction Status Date / Time amlodipine Allergy Anaphylaxis Verified 04/22/23 16:37 lisinopril Allergy tongue Verified 04/22/23 16:37 swelling vancomycin Allergy seizure Verified 04/22/23 16:37 like activity Physical Exam Vitals: Vital Signs Temp Pulse Pulse Resp BP BP Pulse Ox 04/23/23 09:15 96 18 192/94 98 04/23/23 07:49 104 H 04/23/23 07:43 97 04/23/23 07:39 101 H 04/23/23 04:00 97.7 F 112 H 18 121/69 97 04/23/23 03:05 98 04/23/23 03:01 107 H 04/23/23 02:00 24 04/23/23 00:08 98.1 F 92 16 112/71 95 04/22/23 23:01 110 H 18 161/97 99 04/22/23 21:00 108 H 16 133/88 99 04/22/23 20:54 105 H 16 123/84 99 04/22/23 19:00 105 H 18 129/79 99 04/22/23 18:00 103 H 18 103/77 99 04/22/23 17:00 98 18 131/83 99 04/22/23 16:24 98 22 119/80 100 04/22/23 16:10 98 22 117/83 100 04/22/23 15:49 92 28 H 91/63 99 04/22/23 15:39 96 30 H 95/64 99 04/22/23 15:28 26 H 04/22/23 15:22 04/22/23 15:20 96.7 F L 97 26 H 108/76 97 FiO2 04/23/23 09:15 04/23/23 07:49 04/23/23 07:43 04/23/23 07:39 04/23/23 04:00 04/23/23 03:05 04/23/23 03:01 04/23/23 02:00 04/23/23 00:08 04/22/23 23:01 04/22/23 21:00 04/22/23 20:54 04/22/23 19:00 04/22/23 18:00 04/22/23 17:00 04/22/23 16:24 04/22/23 16:10 04/22/23 15:49 04/22/23 15:39 04/22/23 15:28 04/22/23 15:22 100 04/22/23 15:20 Intake and Output 04/22/23 04/23/23 04/23/23 22:59 06:59 14:59 Other: # Voids 1 # Bowel Movements 1 Weight 91.217 kg 91.217 kg GENERAL EXAM: Alert, 77-year-old white male, comfortable in no apparent distress. The patient is currently on 2 L of oxygen nasal cannula HEAD: Normocephalic and atraumatic EYES: Normal reaction of pupils, equal size. NOSE: Clear with pink turbinates. THROAT: No erythema or exudates. NECK: No masses, no JVD. CHEST: No chest wall deformity. LUNGS: Equal air entry with no crackles, wheeze, rhonchi or dullness. No conversational dyspnea or accessory muscle use.. CVS: S1 and S2 normal with no audible murmur, regular rhythm. No extra heart gallo nds ABDOMEN: No hepatosplenomegaly, active bowel sounds, no guarding or rigidity. SPINE: No scoliosis or deformity SKIN: No rashes CENTRAL NERVOUS SYSTEM: No focal deficits, tone is normal in all 4 extremities. He is disoriented to place. EXTREMITIES: There is a left [id number] amputation. There is no peripheral edema, clubbing, or cyanosis. Right dorsalis pedis pulse is weak. Results - Laboratory Findings CBC and BMP: 04/22/23 15:37 04/22/23 16:50 Abnormal lab findings: Abnormal Labs 04/22/23 04/22/23 04/22/23 15:37 15:37 15:37 WBC 12.9 H RDW 17.8 H Neutrophils # 10.9 H Lymphocytes # 0.8 L VBG HCO3 Chloride Carbon Dioxide BUN Creatinine Glucose POC Glucose (mg/dL) Plasma Lactic Acid Pablito 2.3 H* Creatine Kinase Troponin I Total Protein Albumin SARS-CoV-2 (PCR) Detected A 04/22/23 04/22/23 04/22/23 15:39 16:50 16:50 WBC RDW Neutrophils # Lymphocytes # VBG HCO3 21 L Chloride 111 H Carbon Dioxide 19 L BUN 31 H Creatinine 1.79 H Glucose 247 H POC Glucose (mg/dL) Plasma Lactic Acid Pablito Creatine Kinase 54 L Troponin I 0.092 H* Total Protein 6.0 L Albumin 3.3 L SARS-CoV-2 (PCR) 04/23/23 09:31 WBC RDW Neutrophils # Lymphocytes # VBG HCO3 Chloride Carbon Dioxide BUN Creatinine Glucose POC Glucose (mg/dL) 196 H Plasma Lactic Acid Pablito Creatine Kinase Troponin I Total Protein Albumin SARS-CoV-2 (PCR) - Diagnostic Findings Chest x-ray: image reviewed Assessment and Plan Plan: Covid 19 infection without clear evidence of pneumonia or systemic illness re lated to Covid 19 Aspiration right lower lobe pneumonia with limited right lower lung airspace opacity. . Pro-calcitonin level is significantly elevated during his last admission and level was repeated and the level was down. 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 diabetes mellitus type 2 diabetic neuropathy chronic kidney disease stage III Essential hypertension hyperlipidemia Elevated pro-calcitonin level, under investigation, the level has been declining and the patient possible culture is on 04/16/2023 with Staphylococcus Epidermidis in the blood, likely contamination and the pro calcitonin level is improving Plan Repeat swallow evaluation Continue IV Zosyn Consider PEG tube insertion Give the patient course of Decadron for the next 7-10 days ago to 6 mg every 24 hours Continue anticoagulation Repeat blood cultures Repeat progress of level We'll continue to follow
--- NOTE | 2023-04-23 11:55 | P.HPIM ---
History of Present Illness 77-year-old male resident of a senior living was brought in because of hypoxemia found to have a low blood pressure as well patient is oxygen saturations dropped to as low as 80%. Patient is found to have perihilar infiltrate patient usually is alert oriented 2 with history Breast dementia is a concern about aspiration. Patient was started on Zosyn. Patient is completely confused at this time. He is alert oriented 1. Patient had a lactic acidosis which improved patient is positive for COVID-19. Patient was recently discharged from the hospital after he was treated for pneumonia. Patient does have stroke and start failure with EF of around 45% was in the on IV fluids which will be discontinued. Patient's serum creatinine is around 1.8 patient is on anti-coagulation with Xarelto. CT of the head on admission didn't show any acute stroke patient is definitely confused more confused than his baseline. Patient's EKG is within normal limits but her troponin is minimally elevated to 0.092 because of which cardiology was consulted. REVIEW OF SYSTEMS: Unable to obtain PHYSICAL EXAMINATION: GENERAL: The patient is alert and oriented x1, not in any acute distress. Well developed, well nourished. HEENT: Pupils are round and equally reacting to light. EOMI. No scleral icterus. No conjunctival pallor. Normocephalic, atraumatic. No pharyngeal erythema. No thyromegaly. CARDIOVASCULAR: S1 and S2 present. No murmurs, rubs, or gallops. PULMONARY: Chest is clear to auscultation, no wheezing or crackles. ABDOMEN: Soft, nontender, nondistended, normoactive bowel sounds. No palpable organomegaly. MUSCULOSKELETAL: No joint swelling or deformity. EXTREMITIES: No cyanosis, clubbing, or pedal edema. NEUROLOGICAL: Gross neurological examination did not reveal any new focal deficits. SKIN: No rashes. Assessment and plan -Acute hypoxic respiratory failure on admission most probably secondary to COVID-19 pneumonia and aspiration may have contributed to his symptoms as of presently not requiring oxygen. -Possible aspiration pneumonia for which patient and Zosyn -Altered mental status: Most probably secondary to toxic encephalopathy, aspiration and COVID-19. Testing that patient has increased confusion and possibility of aspiration stroke cannot be ruled out because of which I'm consulting neurology. -Aspiration: Speech therapy will evaluate the patient along with neurology evaluation patient may end up needing a PEG tube -Vascular dementia: -Congestive heart failure chronic systolic dysfunction without any acute exacerbation IV fluids will be discontinued -Chronic kidney disease stage 3+ -mild elevated troponin secondary to chronic kidney disease and hyperleukocytosis due to COVID-19 and aspiration -History of DVT patient will be switched to Eliquis -Type 2 diabetes mellitus long-acting insulin will be discontinued and patient will be on sliding scale insulin -Hyperlipidemia -Hypertension DVT prophylaxis: As mentioned above Past Medical History Past Medical History: Heart Failure, Diabetes Mellitus, Deep Vein Thrombosis (DVT), Hyperlipidemia, Hypertension, Syncope Additional Past Medical History / Comment(s): other hx:per pt's "xray noted lung nodules". 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, L foot gr toe, 3rd &2nd toe amputated; Rfoot 3rd toe amputated, Bypass in Bilat legs, eulogio knee sx(cartilage), lt arm picc line.since removed, x3 sx total facial plastic sx and grafting done area under lt eye d/t injury, Ackerman placement.-rt upper chest/removed Past Anesthesia/Blood Transfusion Reactions: Postoperative Nausea & Vomiting (PONV) Additional Past Anesthesia/Blood Transfusion Reaction / Comment(s): never recieved blood Past Psychological History: No Psychological Hx Reported Additional Psychological History / Comment(s): Patient is and lives at home with his . There are no pets in the home. No service. Patient has lived in [place] and [place]. 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 Patient is moved to this area to be close to his children. No significant history of alcohol or recreational drug use. No international travel. No animal exposures. Smoking Status: Never smoker Past Alcohol Use History: None Reported Additional Past Alcohol Use History / Comment(s): Patient is and lives at home with his . There are no pets in the home. No service. Patient has lived in [facility]. 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 Patient is moved to this area to be close to his children. No significant history of alcohol or recreational drug use. No international travel. No animal exposures. Past Drug Use History: None Reported - Past Family History Father Family Medical History: Deep Vein Thrombosis (DVT) Additional Family Medical History / Comment(s): had valve sx- a week later from complications Mother Family Medical History: Congestive Heart Failure (CHF) Additional Family Medical History / Comment(s): phlebitis Medications and Allergies Home Medications Medication Instructions Recorded Confirmed Type Aspirin EC [Ecotrin Low Dose] 81 mg PO DAILY 06/18/19 04/22/23 History Sennosides-Docusate Sodium 1 tab PO DAILY 06/18/19 04/22/23 History [Senokot-S] hydrALAZINE HCL [Apresoline] 100 mg PO TID@0900,1400,2200 06/18/19 04/22/23 H istory Prazosin HCl 4 mg PO TID@0900,1500,2230 09/05/19 04/22/23 History Atorvastatin [Lipitor] 40 mg PO HS 01/27/22 04/22/23 History Cholecalciferol (Vitamin D3) 125 mcg PO DAILY 01/27/22 04/22/23 History [Vitamin D3 (125 MCG = 5,000 IU)] Isosorbide Mononitrate ER [Imdur] 60 mg PO DAILY 01/27/22 04/22/23 History Tamsulosin [Flomax] 0.4 mg PO HS 01/27/22 04/22/23 History carvediloL [Coreg] 25 mg PO BID 01/27/22 04/22/23 History Insulin NPH Hum/Reg Insulin Hm 27 units SQ DAILY@1700 11/09/22 04/22/23 History [humuLIN 70/30 Kwikpen] calcitrioL [Calcitriol] 0.5 mcg PO MOWEFR@0900 12/23/22 04/22/23 History cloNIDine HCL [Catapres] 0.3 mg PO TID@0900,1500,2100 02/07/23 04/22/23 History Rivaroxaban [Xarelto] 20 mg PO HS #30 tab 02/09/23 04/22/23 Rx Ascorbic Acid [Vitamin C] 500 mg PO DAILY 04/16/23 04/22/23 History Dapagliflozin Propanediol [Farxiga] 5 mg PO DAILY 04/16/23 04/22/23 History Ferrous Sulfate [Iron (65 MG 325 mg PO BID 04/16/23 04/22/23 History Elemental)] Ipratropium-Albuterol Nebulize 3 ml INHALATION RT-QID PRN 04/16/23 04/22/23 Hist ory [Duoneb 0.5 mg-3 mg/3 ml Soln] Lactose-Reduced Food [Ensure Plus] 237 ml PO DAILY 04/16/23 04/22/23 History Lactulose [Constulose] 10 gm PO BID 04/16/23 04/22/23 History Multivitamins, Thera [Multivitamin 1 tab PO DAILY 04/16/23 04/22/23 History (formulary)] Amoxic-Pot Clav 400-57Mg/5Ml 5 ml PO Q12H 5 Days #40 ml 04/20/23 04/22/23 Rx [Augmentin 400-57 mg/5 ml Susp] Insulin NPH Hum/Reg Insulin Hm 35 unit SQ DAILY@0900 04/22/23 04/22/23 History [humuLIN 70/30 Kwikpen] Allergies Allergy/AdvReac Type Severity Reaction Status Date / Time amlodipine Allergy Anaphylaxis Verified 04/22/23 16:37 lisinopril Allergy tongue Verified 04/22/23 16:37 swelling vancomycin Allergy seizure Verified 04/22/23 16:37 like activity Physical Exam Vitals: Vital Signs Temp Pulse Pulse Resp BP BP Pulse Ox 04/23/23 11:34 101 H 04/23/23 11:24 103 H 04/23/23 11:17 103 H 18 161/82 98 04/23/23 09:15 96 18 192/94 98 04/23/23 07:49 104 H 04/23/23 07:43 97 04/23/23 07:39 101 H 04/23/23 04:00 97.7 F 112 H 18 121/69 97 04/23/23 03:05 98 04/23/23 03:01 107 H 04/23/23 02:00 24 04/23/23 00:08 98.1 F 92 16 112/71 95 04/22/23 23:01 110 H 18 161/97 99 04/22/23 21:00 108 H 16 133/88 99 04/22/23 20:54 105 H 16 123/84 99 04/22/23 19:00 105 H 18 129/79 99 04/22/23 18:00 103 H 18 103/77 99 04/22/23 17:00 98 18 131/83 99 04/22/23 16:24 98 22 119/80 100 04/22/23 16:10 98 22 117/83 100 04/22/23 15:49 92 28 H 91/63 99 04/22/23 15:39 96 30 H 95/64 99 04/22/23 15:28 26 H 04/22/23 15:22 04/22/23 15:20 96.7 F L 97 26 H 108/76 97 FiO2 04/23/23 11:34 04/23/23 11:24 04/23/23 11:17 04/23/23 09:15 04/23/23 07:49 04/23/23 07:43 04/23/23 07:39 04/23/23 04:00 04/23/23 03:05 04/23/23 03:01 04/23/23 02:00 04/23/23 00:08 04/22/23 23:01 04/22/23 21:00 04/22/23 20:54 04/22/23 19:00 04/22/23 18:00 04/22/23 17:00 04/22/23 16:24 04/22/23 16:10 04/22/23 15:49 04/22/23 15:39 04/22/23 15:28 04/22/23 15:22 100 04/22/23 15:20 Intake and Output 04/22/23 04/23/23 04/23/23 22:59 06:59 14:59 Other: # Voids 1 # Bowel Movements 1 Weight 91.217 kg 91.217 kg Results CBC & Chem 7: 04/22/23 15:37 04/22/23 16:50 Labs: Abnormal Lab Results - Last 24 Hours (Table) 04/22/23 04/22/23 04/22/23 Range/Units 15:37 15:37 15:37 WBC 12.9 H (3.8-10.6) k/uL RDW 17.8 H (11.5-15.5) % Neutrophils # 10.9 H (1.3-7.7) k/uL Lymphocytes # 0.8 L (1.0-4.8) k/uL VBG HCO3 (24-28) mmol/L Chloride (98-107) mmol/L Carbon Dioxide (22-30) mmol/L BUN (9-20) mg/dL Creatinine (0.66-1.25) mg/dL Glucose (74-99) mg/dL POC Glucose (mg/dL) (70-110) mg/dL Plasma Lactic Acid Pablito 2.3 H* (0.7-2.0) mmol/L Creatine Kinase (55-170) U/L Troponin I (0.000-0.034) ng/mL Total Protein (6.3-8.2) g/dL Albumin (3.5-5.0) g/dL SARS-CoV-2 (PCR) Detected A (Not Detectd) 04/22/23 04/22/23 04/22/23 Range/Units 15:39 16:50 16:50 WBC (3.8-10.6) k/uL RDW (11.5-15.5) % Neutrophils # (1.3-7.7) k/uL Lymphocytes # (1.0-4.8) k/uL VBG HCO3 21 L (24-28) mmol/L Chloride 111 H (98-107) mmol/L Carbon Dioxide 19 L (22-30) mmol/L BUN 31 H (9-20) mg/dL Creatinine 1.79 H (0.66-1.25) mg/dL Glucose 247 H (74-99) mg/dL POC Glucose (mg/dL) (70-110) mg/dL Plasma Lactic Acid Pablito (0.7-2.0) mmol/L Creatine Kinase 54 L (55-170) U/L Troponin I 0.092 H* (0.000-0.034) ng/mL Total Protein 6.0 L (6.3-8.2) g/dL Albumin 3.3 L (3.5-5.0) g/dL SARS-CoV-2 (PCR) (Not Detectd) 04/23/23 Range/Units 09:31 WBC (3.8-10.6) k/uL RDW (11.5-15.5) % Neutrophils # (1.3-7.7) k/uL Lymphocytes # (1.0-4.8) k/uL VBG HCO3 (24-28) mmol/L Chloride (98-107) mmol/L Carbon Dioxide (22-30) mmol/L BUN (9-20) mg/dL Creatinine (0.66-1.25) mg/dL Glucose (74-99) mg/dL POC Glucose (mg/dL) 196 H (70-110) mg/dL Plasma Lactic Acid Pablito (0.7-2.0) mmol/L Creatine Kinase (55-170) U/L Troponin I (0.000-0.034) ng/mL Total Protein (6.3-8.2) g/dL Albumin (3.5-5.0) g/dL SARS-CoV-2 (PCR) (Not Detectd) Thrombosis Risk Factor Assmnt - Choose All That Apply Any of the Below Risk Factors Present?: Yes Each Risk Factor Represents 3 Points: Age 75 years or older Thrombosis Risk Factor Assessment Total Risk Factor Score: 3 Thrombosis Risk Factor Assessment Level: Moderate Risk
[2023-04-23 12:18] LABS: Glucose,Whole Blood 206 mg/dL (70-110)
[2023-04-23] MEDS: INSULIN ASPART (NovoLOG) 100 UNIT/ML VIAL SQ SCH ×3 (12:20→20:07)
--- NOTE | 2023-04-23 15:24 | P.CRDCN ---
History of Present Illness Consult date: 04/23/23 Requesting physician: Shayne E Sheet Reason for Consult (text): Elevated troponin Chief complaint: hypoxemia, AMS History of present illness: This is a very confused 77-year-old gentleman who follows with Dr. Murillo in the office. HPI was obtained mostly from the chart and nursing staff. He is a resident at an extended care facility. He was recently hospitalized with right lower lobe pneumonia felt to be related to aspiration at which time he had a failed swallow study. Presents this admission with after noted to be hypoxic and hypotensive at the care facility. He does have a history of hypertension, CHF, chronic renal failure, diabetes, hyperlipidemia, carotid stenosis, severe PAD with prior left [id number] amputation and history of severe multivessel CAD noted on cardiac catheterization in 2017 and felt not to be a candidate for surgical intervention or PCI. He is anticoagulated due to history of DVT. On admission renal function was worse compared to baseline. Blood pressure was in the 70s and he was hypoxic. NT proBNP was elevated at 26,400. Troponin yesterday was 0.092. repeat this morning came back at 2.63. It is unclear if patient has had any anginal pain. He has been found be positive for COVID. EKG on admission showed sinus mechanism with evidence of prior FL. Computed tomography scan of the brain showed age-related atrophic and chronic small vess el ischemic change without acute intracranial process. More confused compared to his baseline. Chest x-ray showed right infrahilar density persist which may reflect underlying infiltrate although there may be slight improvement in the interval. His blood pressure today has been elevated. He's had angioedema with lisinopril and also has ALLERGY listed to amlodipine. Labs revealed white count of 12,900, BUN 31, creatinine 1.79. Past Medical History Past Medical History: Heart Failure, Diabetes Mellitus, Deep Vein Thrombosis (DVT), Hyperlipidemia, Hypertension, Syncope Additional Past Medical History / Comment(s): other hx:per pt's "xray noted lung nodules". 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, L foot gr toe, 3rd &2nd toe amputated; Rfoot 3rd toe amputated, Bypass in Bilat legs, eulogio knee sx(cartilage), lt arm picc line.since removed, x3 sx total facial plastic sx and grafting done area under lt eye d/t injury, Ackerman placement.-rt upper chest/removed Past Anesthesia/Blood Transfusion Reactions: Postoperative Nausea & Vomiting (PONV) Additional Past Anesthesia/Blood Transfusion Reaction / Comment(s): never recieved blood Past Psychological History: No Psychological Hx Reported Additional Psychological History / Comment(s): Patient is and lives at home with his . There are no pets in the home. No service. Patient has lived in [facility]. 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 He is also been a [employer] meza. Patient is moved to this area to be close to his children. No significant history of alcohol or recreational drug use. No international travel. No animal exposures. Smoking Status: Never smoker Past Alcohol Use History: None Reported Additional Past Alcohol Use History / Comment(s): Patient is and lives at home with his . There are no pets in the home. No service. Patient has lived in [facility]. 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 Patient is moved to this area to be close to his children. No significant history of alcohol or recreational drug use. No international travel. No animal exposures. Past Drug Use History: None Reported - Past Family History Father Family Medical History: Deep Vein Thrombosis (DVT) Additional Family Medical History / Comment(s): had valve sx- a week later from complications Mother Family Medical History: Congestive Heart Failure (CHF) Additional Family Medical History / Comment(s): phlebitis Medications and Allergies Home Medications Medication Instructions Recorded Confirmed Type Aspirin EC [Ecotrin Low Dose] 81 mg PO DAILY 06/18/19 04/22/23 History Sennosides-Docusate Sodium 1 tab PO DAILY 06/18/19 04/22/23 History [Senokot-S] hydrALAZINE HCL [Apresoline] 100 mg PO TID@0900,1400,2200 06/18/19 04/22/23 History Prazosin HCl 4 mg PO TID@0900,1500,2230 09/05/19 04/22/23 History Atorvastatin [Lipitor] 40 mg PO HS 01/27/22 04/22/23 History Cholecalciferol (Vitamin D3) 125 mcg PO DAILY 01/27/22 04/22/23 History [Vitamin D3 (125 MCG = 5,000 IU)] Isosorbide Mononitrate ER [Imdur] 60 mg PO DAILY 01/27/22 04/22/23 History Tamsulosin [Flomax] 0.4 mg PO HS 01/27/22 04/22/23 History carvediloL [Coreg] 25 mg PO BID 01/27/22 04/22/23 History Insulin NPH Hum/Reg Insulin Hm 27 units SQ DAILY@1700 11/09/22 04/22/23 History [humuLIN 70/30 Kwikpen] calcitrioL [Calcitriol] 0.5 mcg PO MOWEFR@0900 12/23/22 04/22/23 History cloNIDine HCL [Catapres] 0.3 mg PO TID@0900,1500,2100 02/07/23 04/22/23 History Rivaroxaban [Xarelto] 20 mg PO HS #30 tab 02/09/23 04/22/23 Rx Ascorbic Acid [Vitamin C] 500 mg PO DAILY 04/16/23 04/22/23 History Dapagliflozin Propanediol [Farxiga] 5 mg PO DAILY 04/16/23 04/22/23 History Ferrous Sulfate [Iron (65 MG 325 mg PO BID 04/16/23 04/22/23 History Elemental)] Ipratropium-Albuterol Nebulize 3 ml INHALATION RT-QID PRN 04/16/23 04/22/23 History [Duoneb 0.5 mg-3 mg/3 ml Soln] Lactose-Reduced Food [Ensure Plus] 237 ml PO DAILY 04/16/23 04/22/23 History Lactulose [Constulose] 10 gm PO BID 04/16/23 04/22/23 History Multivitamins, Thera [Multivitamin 1 tab PO DAILY 04/16/23 04/22/23 History (formulary)] Amoxic-Pot Clav 400-57Mg/5Ml 5 ml PO Q12H 5 Days #40 ml 04/20/23 04/22/23 Rx [Augmentin 400-57 mg/5 ml Susp] Insulin NPH Hum/Reg Insulin Hm 35 unit SQ DAILY@0900 04/22/23 04/22/23 History [humuLIN 70/30 Kwikpen] Allergies Allergy/AdvReac Type Severity Reaction Status Date / Time amlodipine Allergy Anaphylaxis Verified 04/22/23 16:37 lisinopril Allergy tongue Verified 04/22/23 16:37 swelling vancomycin Allergy seizure Verified 04/22/23 16:37 like activity Physical Exam Vitals: Vital Signs Temp Pulse Pulse Resp BP BP Pulse Ox 04/23/23 11:34 101 H 04/23/23 11:24 103 H 04/23/23 11:17 103 H 18 161/82 98 04/23/23 09:15 96 18 192/94 98 04/23/23 07:49 104 H 04/23/23 07:43 97 04/23/23 07:39 101 H 04/23/23 04:00 97.7 F 112 H 18 121/69 97 04/23/23 03:05 98 04/23/23 03:01 107 H 04/23/23 02:00 24 04/23/23 00:08 98.1 F 92 16 112/71 95 04/22/23 23:01 110 H 18 161/97 99 04/22/23 21:00 108 H 16 133/88 99 04/22/23 20:54 105 H 16 123/84 99 04/22/23 19:00 105 H 18 129/79 99 04/22/23 18:00 103 H 18 103/77 99 04/22/23 17:00 98 18 131/83 99 04/22/23 16:24 98 22 119/80 100 04/22/23 16:10 98 22 117/83 100 04/22/23 15:49 92 28 H 91/63 99 04/22/23 15:39 96 30 H 95/64 99 04/22/23 15:28 26 H 04/22/23 15:22 04/22/23 15:20 96.7 F L 97 26 H 108/76 97 FiO2 04/23/23 11:34 04/23/23 11:24 04/23/23 11:17 04/23/23 09:15 04/23/23 07:49 04/23/23 07:43 04/23/23 07:39 04/23/23 04:00 04/23/23 03:05 04/23/23 03:01 04/23/23 02:00 04/23/23 00:08 04/22/23 23:01 04/22/23 21:00 04/22/23 20:54 04/22/23 19:00 04/22/23 18:00 04/22/23 17:00 04/22/23 16:24 04/22/23 16:10 04/22/23 15:49 04/22/23 15:39 04/22/23 15:28 04/22/23 15:22 100 04/22/23 15:20 Intake and Output 04/23/23 04/23/23 04/23/23 06:59 14:59 22:59 Other: # Voids 1 # Bowel Movements 1 Weight 91.217 kg PHYSICAL EXAMINATION: This is a 77-year-old male in no apparent distress at the time of my examination. HEENT: Head is atraumatic, normocephalic. Pupils are equal, round. Sclerae anicteric. Conjunctivae are clear. Mucous membranes of the mouth are moist. Neck is supple. There is no elevated jugular venous pressure. No carotid bruit is heard. CHEST EXAMINATION: Clear to auscultation bilaterally. No wheezes rales or rhonchi. Respirations even and nonlabored. HEART EXAMINATION: Heart regular, positive S1 and S2. No S3. No S4. With a systolic function. ABDOMEN: Soft. Bowel sounds are heard. No organomegaly noted. EXTREMITIES: Prior Left AKA, no right lower extremity edema. NEUROLOGIC EXAMINATION: Patient is awake, alert and oriented x1. Results 04/22/23 15:37 04/22/23 16:50 Cardiac Enzymes 04/22/23 04/22/23 04/23/23 Range/Units 16:50 16:50 11:29 AST 31 (17-59) U/L Troponin I 0.092 H* 2.630 H* (0.000-0.034) ng/mL CBC 04/22/23 Range/Units 15:37 WBC 12.9 H (3.8-10.6) k/uL RBC 5.76 (4.30-5.90) m/uL Hgb 14.7 D (13.0-17.5) gm/dL Hct 47.3 (39.0-53.0) % Plt Count 288 (150-450) k/uL Comprehensive Metabolic Panel 04/22/23 Range/Units 16:50 Sodium 142 (137-145) mmol/L Potassium 4.1 (3.5-5.1) mmol/L Chloride 111 H (98-107) mmol/L Carbon Dioxide 19 L (22-30) mmol/L BUN 31 H (9-20) mg/dL Creatinine 1.79 H (0.66-1.25) mg/dL Glucose 247 H (74-99) mg/dL Calcium 8.7 (8.4-10.2) mg/dL AST 31 (17-59) U/L ALT 23 (4-49) U/L Alkaline Phosphatase 95 (38-126) U/L Total Protein 6.0 L (6.3-8.2) g/dL Albumin 3.3 L (3.5-5.0) g/dL Current Medications Generic Name Dose Route Start Last Admin Trade Name Freq PRN Reason Stop Dose Admin Acetaminophen 650 mg 04/22/23 21:41 Acetaminophen Tab 325 Mg Tab PO Q6HR PRN Mild Pain or Fever > 100.5 Albuterol/Ipratropium 3 ml 04/23/23 00:00 04/23/23 11:23 Ipratropium-Albuterol 3 Ml Neb INHALATION 3 ml Q6HR [facility] Administration Apixaban 5 mg 04/23/23 21:00 Apixaban 5 Mg Tab PO BID [facility] Protocol Ascorbic Acid 500 mg 04/23/23 09:00 04/23/23 10:55 Ascorbic Acid 500 Mg Tab PO Not Given DAILY [facility] Aspirin 81 mg 04/23/23 09:00 04/23/23 10:55 Aspirin 81 Mg PO Not Given DAILY [facility] Atorvastatin Calcium 40 mg 04/23/23 21:00 Atorvastatin 40 Mg Tab PO HS [facility] Calcitriol 0.5 mcg 04/25/23 09:00 Calcitriol 0.25 Mcg Cap PO MOWEFR@0900 [facility] Carvedilol 25 mg 04/23/23 09:00 04/23/23 10:55 Carvedilol 12.5 Mg Tab PO Not Given BID [facility] Cholecalciferol 125 mcg 04/23/23 09:00 04/23/23 10:55 Cholecalciferol 125 Mcg (5000 Iu) Tablet PO Not Given DAILY [facility] Clonidine 0.3 mg 04/23/23 09:00 04/23/23 10:55 Clonidine Hcl 0.1 Mg Tab PO Not Given TID [facility] Dapagliflozin 5 mg 04/23/23 09:00 04/23/23 10:55 Dapagliflozin Propanediol 5 Mg Tablet PO Not Given DAILY [facility] Dexamethasone Sodium Phosphate 6 mg 04/23/23 10:15 04/23/23 11:38 Dexamethasone Sod Phosphate 10 Mg/Ml 1 Ml Vial IVP 6 mg DAILY [facility] Administration Dextrose/Water 25 ml 04/23/23 11:34 Dextrose 50% Syringe 50 Ml IVP PER PROTOCOL PRN Hypoglycemia Protocol Dextrose/Water 50 ml 04/23/23 11:34 Dextrose 50% Syringe 50 Ml IVP PER PROTOCOL PRN Hypoglycemia Protocol Ferrous Sulfate 325 mg 04/23/23 09:00 04/23/23 10:56 Ferrous Sulfate 325 Mg Tab PO Not Given BID [facility] Hydralazine HCl 100 mg 04/22/23 22:00 04/23/23 10:56 Hydralazine Hcl 50 Mg Tab PO Not Given TID [facility] Piperacillin Sod/Tazobactam 100 mls @ 25 mls/hr 04/23/23 00:00 04/23/23 09:25 Sod 3.375 gm/ Sodium Chloride IVPB 25 mls/hr Q8HR [facility] Administration Protocol Insulin Aspart 0 unit 04/23/23 12:30 04/23/23 12:20 Insulin Aspart (Novolog) 100 Unit/Ml Vial SQ 4 unit ACHS [facility] Administration Protocol Isosorbide Mononitrate 60 mg 04/23/23 21:00 Isosorbide Mononitrate Er 60 Mg Tab.Er.24h PO BID [facility] Lactulose 10 gm 04/23/23 09:00 04/23/23 10:56 Lactulose 20 Gm/30 Ml Cup PO Not Given BID [facility] Multivitamins 1 each 04/23/23 09:00 04/23/23 09:23 Multivitamins, Thera 1 Each Tab PO 1 each DAILY [facility] Administration Naloxone HCl 0.2 mg 04/22/23 21:41 Naloxone 0.4 Mg/Ml 1 Ml Vial IV Q2M PRN Opioid Reversal Ondansetron HCl 4 mg 04/22/23 21:41 04/23/23 09:44 Ondansetron 4 Mg/2 Ml Vial IVP 4 mg Q8HR PRN Administration Nausea And Vomiting Pantoprazole Sodium 40 mg 04/24/23 07:30 Pantoprazole 40 Mg Tablet PO AC-BRKFST [facility] Prazosin HCl 4 mg 04/22/23 22:30 04/23/23 10:56 Prazosin 1 Mg Cap PO Not Given TID@0900,1500,2230 [facility] Quetiapine Fumarate 25 mg 04/23/23 11:15 Quetiapine 25 Mg Tab PO HS PRN Agitation Senna/Docusate Sodium 1 each 04/23/23 09:00 04/23/23 09:23 Sennosides-Docusate Sodium 1 Each Tab PO 1 each DAILY [facility] Administration Tamsulosin HCl 0.4 mg 04/23/23 21:00 Tamsulosin 0.4 Mg Cap.Er.24h PO HS [facility] Intake and Output 04/23/23 04/23/23 04/23/23 06:59 14:59 22:59 Other: # Voids 1 # Bowel Movements 1 Weight 91.217 kg 04/22/23 15:37 04/22/23 16:50 Assessment and Plan Assessment: #1: COVID infection #2 recent aspiration pneumonia #3 troponin elevation of unclear etiology in a patient with known severe multivessel CAD who is not a candidate for surgical or percutaneous intervention. #4 worsening confusion, neurology on consult #5 history of DVT anticoagulated #6 hypertension #7 hyperlipidemia #8 diabetes #9 PAD Plan: From cardiology's perspective the patient is not a candidate for aggressive cardiac workup. We will increase his oral nitrate. Continue to follow the patient and provide further recommendations accordingly. LENS MARKER note has been reviewed, I agree with a documented findings and plan of care. Patient was seen and examined.
[2023-04-23 16:45] LABS: Glucose,Whole Blood 184 mg/dL (70-110)
--- NOTE | 2023-04-23 17:20 | P.GSCN ---
History of Present Illness Consult date: 04/23/23 History of present illness: Patient not conversant. Request for feeding tube due to aspiration. Resting comfortable. Has signs of weight loss with loss skin. Follow up chest xray. Past Medical History Past Medical History: Heart Failure, Diabetes Mellitus, Deep Vein Thrombosis (DVT), Hyperlipidemia, Hypertension, Syncope Additional Past Medical History / Comment(s): other hx:per pt's "xray noted lung nodules". 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 tumor removed from bladder, L foot gr toe, 3rd &2nd toe amputated; Rfoot 3rd toe amputated, Bypass in Bilat legs, eulogio knee sx(cartilage), lt arm picc line.since removed, x3 sx to [facility] facial plastic sx and grafting done area under lt eye d/t injury, Ackerman placement.-rt upper chest/removed Past Anesthesia/Blood Transfusion Reactions: Postoperative Nausea & Vomiting (PONV) Additional Past Anesthesia/Blood Transfusion Reaction / Comm: never recieved blood Past Psychological History: No Psychological Hx Reported Additional Psychological History / Comment(s): Patient is and lives at home with his . There are no pets in the home. No service. Patient has lived in [place] and [place]. 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 Patient is moved to this area to be close to his children. No significant history of alcohol or recreational drug use. No international tra edgar. No animal exposures. Smoking Status: Never smoker Past Alcohol Use History: None Reported Additional Past Alcohol Use History / Comment(s): Patient is and lives at home with his . There are no pets in the home. No service. Patient has lived in [place] and [place]. 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 Patient is moved to this area to be close to his children. No significant history of alcohol or recreational drug use. No international travel. No animal exposures. Past Drug Use History: None Reported - Past Family History Father Family Medical History: Deep Vein Thrombosis (DVT) Additional Family Medical History / Comment(s): had valve sx- a week later from complications Mother Family Medical History: Congestive Heart Failure (CHF) Additional Family Medical History / Comment(s): phlebitis Medications and Allergies Home Medications Medication Instructions Recorded Confirmed Type Aspirin EC [Ecotrin Low Dose] 81 mg PO DAILY 06/18/19 04/22/23 History Sennosides-Docusate Sodium 1 tab PO DAILY 06/18/19 04/22/23 History [Senokot-S] hydrALAZINE HCL [Apresoline] 100 mg PO TID@0900,1400,2200 06/18/19 04/22/23 History Prazosin HCl 4 mg PO TID@0900,1500,2230 09/05/19 04/22/23 History Atorvastatin [Lipitor] 40 mg PO HS 01/27/22 04/22/23 History Cholecalciferol (Vitamin D3) 125 mcg PO DAILY 01/27/22 04/22/23 History [Vitamin D3 (125 MCG = 5,000 IU)] Isosorbide Mononitrate ER [Imdur] 60 mg PO DAILY 01/27/22 04/22/23 History Tamsulosin [Flomax] 0.4 mg PO HS 01/27/22 04/22/23 History carvediloL [Coreg] 25 mg PO BID 01/27/22 04/22/23 History Insulin NPH Hum/Reg Insulin Hm 27 units SQ DAILY@1700 11/09/22 04/22/23 History [humuLIN 70/30 Kwikpen] calcitrioL [Calcitriol] 0.5 mcg PO MOWEFR@0900 12/23/22 04/22/23 History cloNIDine HCL [Catapres] 0.3 mg PO TID@0900,1500,2100 02/07/23 04/22/23 History Rivaroxaban [Xarelto] 20 mg PO HS #30 tab 02/09/23 04/22/23 Rx Ascorbic Acid [Vitamin C] 500 mg PO DAILY 04/16/23 04/22/23 History Dapagliflozin Propanediol [Farxiga] 5 mg PO DAILY 04/16/23 04/22/23 History Ferrous Sulfate [Iron (65 MG 325 mg PO BID 04/16/23 04/22/23 History Elemental)] Ipratropium-Albuterol Nebulize 3 ml INHALATION RT-QID PRN 04/16/23 04/22/23 History [Duoneb 0.5 mg-3 mg/3 ml Soln] Lactose-Reduced Food [Ensure Plus] 237 ml PO DAILY 04/16/23 04/22/23 History Lactulose [Constulose] 10 gm PO BID 04/16/23 04/22/23 History Multivitamins, Thera [Multivitamin 1 tab PO DAILY 04/16/23 04/22/23 History (formulary)] Amoxic-Pot Clav 400-57Mg/5Ml 5 ml PO Q12H 5 Days #40 ml 04/20/23 04/22/23 Rx [Augmentin 400-57 mg/5 ml Susp] Insulin NPH Hum/Reg Insulin Hm 35 unit SQ DAILY@0900 04/22/23 04/22/23 History [humuLIN 70/30 Kwikpen] Allergies Allergy/AdvReac Type Severity Reaction Status Date / Time amlodipine Allergy Anaphylaxis Verified 04/22/23 16:37 lisinopril Allergy tongue Verified 04/22/23 16:37 swelling vancomycin Allergy seizure Verified 04/22/23 16:37 like activity Surgical - Exam Vital Signs Temp Pulse Resp BP Pulse Ox 96.7 F L 97 26 H 108/76 97 04/22/23 15:20 04/22/23 15:20 04/22/23 15:20 04/22/23 15:20 04/22/23 15:20 Results - Labs 04/22/23 15:37 04/22/23 16:50 Abnormal Lab Results - Last 24 Hours (Table) 04/22/23 04/22/23 04/22/23 Range/Units 15:37 16:50 16:50 Chloride 111 H (98-107) mmol/L Carbon Dioxide 19 L (22-30) mmol/L BUN 31 H (9-20) mg/dL Creatinine 1.79 H (0.66-1.25) mg/dL Glucose 247 H (74-99) mg/dL POC Glucose (mg/dL) (70-110) mg/dL Creatine Kinase 54 L (55-170) U/L Troponin I 0.092 H* (0.000-0.034) ng/mL Total Protein 6.0 L (6.3-8.2) g/dL Albumin 3.3 L (3.5-5.0) g/dL SARS-CoV-2 (PCR) Detected A (Not Detectd) 04/23/23 04/23/23 04/23/23 Range/Units 09:31 11:29 12:10 Chloride (98-107) mmol/L Carbon Dioxide (22-30) mmol/L BUN (9-20) mg/dL Creatinine (0.66-1.25) mg/dL Glucose (74-99) mg/dL POC Glucose (mg/dL) 196 H 206 H (70-110) mg/dL Creatine Kinase (55-170) U/L Troponin I 2.630 H* (0.000-0.034) ng/mL Total Protein (6.3-8.2) g/dL Albumin (3.5-5.0) g/dL SARS-CoV-2 (PCR) (Not Detectd) 04/23/23 04/23/23 Range/Units 14:50 16:42 Chloride (98-107) mmol/L Carbon Dioxide (22-30) mmol/L BUN (9-20) mg/dL Creatinine (0.66-1.25) mg/dL Glucose (74-99) mg/dL POC Glucose (mg/dL) 184 H (70-110) mg/dL Creatine Kinase (55-170) U/L Troponin I 2.400 H* (0.000-0.034) ng/mL Total Protein (6.3-8.2) g/dL Albumin (3.5-5.0) g/dL SARS-CoV-2 (PCR) (Not Detectd) Diabetes panel 04/22/23 Range/Units 16:50 Sodium 142 (137-145) mmol/L Potassium 4.1 (3.5-5.1) mmol/L Chloride 111 H (98-107) mmol/L Carbon Dioxide 19 L (22-30) mmol/L BUN 31 H (9-20) mg/dL Creatinine 1.79 H (0.66-1.25) mg/dL Glucose 247 H (74-99) mg/dL Calcium 8.7 (8.4-10.2) mg/dL AST 31 (17-59) U/L ALT 23 (4-49) U/L Alkaline Phosphatase 95 (38-126) U/L Total Protein 6.0 L (6.3-8.2) g/dL Albumin 3.3 L (3.5-5.0) g/dL Calcium panel 04/22/23 Range/Units 16:50 Calcium 8.7 (8.4-10.2) mg/dL Albumin 3.3 L (3.5-5.0) g/dL Pituitary panel 04/22/23 Range/Units 16:50 Sodium 142 (137-145) mmol/L Potassium 4.1 (3.5-5.1) mmol/L Chloride 111 H (98-107) mmol/L Carbon Dioxide 19 L (22-30) mmol/L BUN 31 H (9-20) mg/dL Creatinine 1.79 H (0.66-1.25) mg/dL Glucose 247 H (74-99) mg/dL Calcium 8.7 (8.4-10.2) mg/dL Adrenal panel 04/22/23 Range/Units 16:50 Sodium 142 (137-145) mmol/L Potassium 4.1 (3.5-5.1) mmol/L Chloride 111 H (98-107) mmol/L Carbon Dioxide 19 L (22-30) mmol/L BUN 31 H (9-20) mg/dL Creatinine 1.79 H (0.66-1.25) mg/dL Glucose 247 H (74-99) mg/dL Calcium 8.7 (8.4-10.2) mg/dL Total Bilirubin 0.7 (0.2-1.3) mg/dL AST 31 (17-59) U/L ALT 23 (4-49) U/L Alkaline Phosphatase 95 (38-126) U/L Total Protein 6.0 L (6.3-8.2) g/dL Albumin 3.3 L (3.5-5.0) g/dL
[2023-04-23 19:57] LABS: Glucose,Whole Blood 161 mg/dL (70-110)
[2023-04-23] MEDS: ISOSORBIDE MONONITRATE ER 60 MG TAB.ER.24H PO SCH (20:05)
[2023-04-23] MEDS: ATORVASTATIN 40 MG TAB PO SCH (20:05)
[2023-04-23] MEDS: TAMSULOSIN 0.4 MG CAP.ER.24H PO SCH (20:05)
[2023-04-23] MEDS: APIXABAN 5 MG TAB PO SCH (20:05)
[2023-04-23] MEDS ORDERED: RIVAROXABAN 20 MG TAB PO SCH (21:00)
[2023-04-23] MEDS: ALBUTEROL HFA INHALER INHALATION SCH (21:08)
[2023-04-23] MEDS: hydrALAZINE HCL 20 MG/ML 1 ML VIAL IVP PRN (22:04)
[2023-04-23 23:09] LABS: Glucose,Whole Blood 142 mg/dL (70-110)
[2023-04-24] MEDS: PIPERACILLIN-TAZOBACTAM 3.375 GM in SODIUM CHLORIDE 0.9% 100 ML IVPB SCH ×4 (00:08→23:42)
[2023-04-24] MEDS: ALBUTEROL HFA INHALER INHALATION SCH ×4 (00:59→21:12)
[2023-04-24 05:53] LABS: Glucose,Whole Blood 137 mg/dL (70-110)
[2023-04-24] MEDS: INSULIN ASPART (NovoLOG) 100 UNIT/ML VIAL SQ SCH ×4 (06:14→20:21)
[2023-04-24] MEDS ORDERED: PANTOPRAZOLE 40 MG TABLET PO SCH (07:30)
[2023-04-24 08:13] LABS: Anisocytosis Slight; HCT 41.4 % (39.0-53.0); HGB 12.8 gm/dL (13.0-17.5); Hypochromasia Moderate; MCH 25.6 pg (25.0-35.0); MCV 82.7 fL (80.0-100.0); Mean Platelet Volume 10.5; Microcytosis Slight; Platelet Count 250 k/uL (150-450); RBC 5.01 m/uL (4.30-5.90); WBC 10.9 k/uL (3.8-10.6)
[2023-04-24 08:14] LABS: Calcium 9.4 mg/dL (8.4-10.2); Magnesium 2.6 mg/dL (1.6-2.3); Potassium 4.1 mmol/L (3.5-5.1)
[2023-04-24] MEDS: hydrALAZINE HCL 20 MG/ML 1 ML VIAL IVP PRN ×4 (08:27→22:50)
[2023-04-24] MEDS: ASPIRIN 81 MG PO SCH (10:49)
[2023-04-24] MEDS: carvediloL 12.5 MG TAB PO SCH ×2 (10:49→20:01)
[2023-04-24] MEDS: APIXABAN 5 MG TAB PO SCH (10:49)
[2023-04-24] MEDS: CHOLECALCIFEROL 125 MCG (5000 IU) TABLET PO SCH (10:49)
[2023-04-24] MEDS: DAPAGLIFLOZIN PROPANEDIOL 5 MG TABLET PO SCH (10:49)
[2023-04-24] MEDS: cloNIDine HCL 0.1 MG TAB PO SCH ×3 (10:49→20:02)
[2023-04-24] MEDS: ASCORBIC ACID 500 MG TAB PO SCH (10:49)
[2023-04-24] MEDS: LACTULOSE 20 GM/30 ML CUP PO SCH ×2 (10:50→20:02)
[2023-04-24] MEDS: hydrALAZINE HCL 50 MG TAB PO SCH ×3 (10:50→20:02)
[2023-04-24] MEDS: SENNOSIDES-DOCUSATE SODIUM 1 EACH TAB PO SCH (10:50)
[2023-04-24] MEDS: FERROUS SULFATE 325 MG TAB PO SCH ×2 (10:50→20:02)
[2023-04-24] MEDS: ISOSORBIDE MONONITRATE ER 60 MG TAB.ER.24H PO SCH ×2 (10:50→20:02)
[2023-04-24] MEDS: PRAZOSIN 1 MG CAP PO SCH ×3 (10:50→20:02)
[2023-04-24] MEDS: MULTIVITAMINS, THERA 1 EACH TAB PO SCH (10:50)
--- NOTE | 2023-04-24 11:55 | P.PN ---
Subjective Progress Note Date: 04/24/23 This patient was discharged on home on 04/20/2023 after being treated for a right lower lobe pneumonia that was considered to be aspiration. His swallow evaluation was done at that time and the patient had penetration with all consistencies. The patient was given Augmentin at time of discharge. He came into the emergency department yesterday with shortness of breath and hypoxemia and the patient's pulse ox was 86% on room air oxygen and the patient's initial blood pressure was 70/40. He was at the correction. He demonstrated also lethargy. No reported fever. He did test however positive for Covid 19 during this current admission and a repeat chest x-ray was done that showed some limited infiltration of the right lung base although chest x-ray findings were improving. The patient is currently on 2 L of O2 nasal cannula. The patient did encounter also an episode of emesis and possible aspiration this morning as reported by the nursing staff. At the time on evaluation, the patient was stable and he did not have any labored breathing. Abdomen was soft and nontender. No abdominal pain or distention. No reported nausea. He is afebrile and hemodynamically stable. He is on 2 L of O2 nasal cannula and a white cell count is at 12.9 with a hemoglobin of 14.7, BUN is 30 over a c reatinine of 1.7 and sodium levels of 142 and a potassium level is at 4.1. Noted the patient has an acute kidney injury from which she was recovering and he does have an underlying chronic kidney disease stage III. ProBNP level was 26,000 and troponin was at 0.09 at the time of his admission. Covid 19 was again positive. Noted the patient has been infected with Covid 19 in the past On today's evaluation of 04/24/2023, the patient is on room air oxygen. He is definitely aspirating. General surgery was consulted for possibility of a PEG tube insertion. The patient's WBC count of 10.9 with a hemoglobin 12.5. BUN is at 40 with a creatinine of 2.7 and sodium levels of 147. He has developed a component of mild hyperchloremic hypernatremia. He is on IV Zosyn. He is on Decadron. He will need to be started on IV fluids also. Objective - Vital Signs Vital signs: Vital Signs Temp 98.3 F 04/24/23 08:00 Pulse 102 H 04/24/23 08:00 Resp 16 04/24/23 08:00 BP 189/109 04/24/23 08:00 Pulse Ox 97 04/24/23 09:02 FiO2 100 04/22/23 15:22 Intake & Output 04/23/23 04/24/23 04/24/23 18:59 06:59 18:59 Intake Total 10 Balance 10 Intake: IV 10 Invasive Line 2 10 Other: # Voids 1 1 # Bowel Movements 1 - Exam GENERAL EXAM: Alert, 77-year-old white male, comfortable in no apparent distress. The patient is currently on room air oxygen HEAD: Normocephalic and atraumatic EYES: Normal reaction of pupils, equal size. NOSE: Clear with pink turbinates. THROAT: No erythema or exudates. NECK: No masses, no JVD. CHEST: No chest wall deformity. LUNGS: Equal air entry with no crackles, wheeze, rhonchi or dullness. No c onversational dyspnea or accessory muscle use.. CVS: S1 and S2 normal with no audible murmur, regular rhythm. No extra heart sounds ABDOMEN: No hepatosplenomegaly, active bowel sounds, no guarding or rigidity. SPINE: No scoliosis or deformity SKIN: No rashes CENTRAL NERVOUS SYSTEM: No focal deficits, tone is normal in all 4 extremities. He is disoriented to place. EXTREMITIES: There is a left [id number] amputation. There is no peripheral edema, clubbing, or cyanosis. Right dorsalis pedis pulse is weak. - Labs CBC & Chem 7: 04/24/23 06:44 04/24/23 06:44 Labs: Abnormal Lab Results - Last 24 Hours (Table) 04/23/23 04/23/23 04/23/23 Range/Units 11:29 12:10 12:14 WBC (3.8-10.6) k/uL Hgb (13.0-17.5) gm/dL RDW (11.5-15.5) % Sodium (137-145) mmol/L Chloride (98-107) mmol/L Carbon Dioxide (22-30) mmol/L BUN (9-20) mg/dL Creatinine (0.66-1.25) mg/dL Glucose (74-99) mg/dL POC Glucose (mg/dL) 206 H (70-110) mg/dL Magnesium (1.6-2.3) mg/dL Troponin I 2.630 H* (0.000-0.034) ng/mL Procalcitonin 0.57 H ng/mL 04/23/23 04/23/23 04/23/23 Range/Units 14:50 16:42 19:55 WBC (3.8-10.6) k/uL Hgb (13.0-17.5) gm/dL RDW (11.5-15.5) % Sodium (137-145) mmol/L Chloride (98-107) mmol/L Carbon Dioxide (22-30) mmol/L BUN (9-20) mg/dL Creatinine (0.66-1.25) mg/dL Glucose (74-99) mg/dL POC Glucose (mg/dL) 184 H 161 H (70-110) mg/dL Magnesium (1.6-2.3) mg/dL Troponin I 2.400 H* (0.000-0.034) ng/mL Procalcitonin ng/mL 04/23/23 04/24/23 04/24/23 Range/Units 23:07 05:51 06:44 WBC 10.9 H (3.8-10.6) k/uL Hgb 12.8 L (13.0-17.5) gm/dL RDW 18.0 H (11.5-15.5) % Sodium (137-145) mmol/L Chloride (98-107) mmol/L Carbon Dioxide (22-30) mmol/L BUN (9-20) mg/dL Creatinine (0.66-1.25) mg/dL Glucose (74-99) mg/dL POC Glucose (mg/dL) 142 H 137 H (70-110) mg/dL Magnesium (1.6-2.3) mg/dL Troponin I (0.000-0.034) ng/mL Procalcitonin ng/mL 04/24/23 Range/Units 06:44 WBC (3.8-10.6) k/uL Hgb (13.0-17.5) gm/dL RDW (11.5-15.5) % Sodium 147 H (137-145) mmol/L Chloride 117 H (98-107) mmol/L Carbon Dioxide 16 L (22-30) mmol/L BUN 40 H (9-20) mg/dL Creatinine 2.17 H (0.66-1.25) mg/dL Glucose 152 H (74-99) mg/dL POC Glucose (mg/dL) (70-110) mg/dL Magnesium 2.6 H (1.6-2.3) mg/dL Troponin I (0.000-0.034) ng/mL Procalcitonin ng/mL Assessment and Plan Plan: Covid 19 infection without clear evidence of pneumonia or systemic illness related to Covid 19 Aspiration right lower lobe pneumonia with limited right lower lung airspace o pacity. . Pro-calcitonin level is significantly elevated during his last admission and level was repeated and the level was down. The patient also had positive blood cultures that do not to be related to staph epidermidis and he had tested negative for COVID-19 during his last admission, the patient is currently on room air oxygen. 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 diabetes mellitus type 2 diabetic neuropathy chronic kidney disease stage III Essential hypertension hyperlipidemia Elevated pro-calcitonin level, under investigation, the level has been declining and the patient possible culture is on 04/16/2023 with Staphylococcus Epidermidis in the blood, likely contamination and the pro calcitonin level is improving Hyperchloremic hypernatremia Non-anion gap metabolic acidosis Plan Start the patient on a bicarb infusion at the rate of 75 mL an hour Repeat swallow evaluation Continue IV Zosyn Consider PEG tube insertion Give the patient course of Decadron for the next 7-10 days ago to 6 mg every 24 hours Continue anticoagulation Repeat blood cultures Repeat progress of level We'll continue to follow
[2023-04-24 12:01] LABS: Glucose,Whole Blood 158 mg/dL (70-110)
[2023-04-24] MEDS: DEXAMETHASONE SOD PHOSPHATE 10 MG/ML 1 ML VIAL IVP SCH (12:24)
--- NOTE | 2023-04-24 13:32 | P.PN ---
Subjective Progress Note Date: 04/24/23 Resting comfortably. Recommend speech pathology assessment for swallow and or barium swallow for further assessment of dysphagia. Recommend calorie counts. Objective - Vital Signs Vital signs: Vital Signs Temp 98.3 F 04/24/23 08:00 Pulse 103 H 04/24/23 12:00 Resp 16 04/24/23 12:00 BP 201/96 04/24/23 12:00 Pulse Ox 97 04/24/23 12:00 FiO2 100 04/22/23 15:22 Intake & Output 04/23/23 04/24/23 04/24/23 18:59 06:59 18:59 Intake Total 10 Balance 10 Intake: IV 10 Invasive Line 2 10 Other: # Voids 1 1 # Bowel Movements 1 - Labs CBC & Chem 7: 04/24/23 06:44 04/24/23 06:44 Labs: Abnormal Lab Results - Last 24 Hours (Table) 04/23/23 04/23/23 04/23/23 Range/Units 12:14 14:50 16:42 WBC (3.8-10.6) k/uL Hgb (13.0-17.5) gm/dL RDW (11.5-15.5) % Sodium (137-145) mmol/L Chloride (98-107) mmol/L Carbon Dioxide (22-30) mmol/L BUN (9-20) mg/dL Creatinine (0.66-1.25) mg/dL Glucose (74-99) mg/dL POC Glucose (mg/dL) 184 H (70-110) mg/dL Magnesium (1.6-2.3) mg/dL Troponin I 2.400 H* (0.000-0.034) ng/mL Procalcitonin 0.57 H ng/mL 04/23/23 04/23/23 04/24/23 Range/Units 19:55 23:07 05:51 WBC (3.8-10.6) k/uL Hgb (13.0-17.5) gm/dL RDW (11.5-15.5) % Sodium (137-145) mmol/L Chloride (98-107) mmol/L Carbon Dioxide (22-30) mmol/L BUN (9-20) mg/dL Creatinine (0.66-1.25) mg/dL Glucose (74-99) mg/dL POC Glucose (mg/dL) 161 H 142 H 137 H (70-110) mg/dL Magnesium (1.6-2.3) mg/dL Troponin I (0.000-0.034) ng/mL Procalcitonin ng/mL 04/24/23 04/24/23 04/24/23 Range/Units 06:44 06:44 11:58 WBC 10.9 H (3.8-10.6) k/uL Hgb 12.8 L (13.0-17.5) gm/dL RDW 18.0 H (11.5-15.5) % Sodium 147 H (137-145) mmol/L Chloride 117 H (98-107) mmol/L Carbon Dioxide 16 L (22-30) mmol/L BUN 40 H (9-20) mg/dL Creatinine 2.17 H (0.66-1.25) mg/dL Glucose 152 H (74-99) mg/dL POC Glucose (mg/dL) 158 H (70-110) mg/dL Magnesium 2.6 H (1.6-2.3) mg/dL Troponin I (0.000-0.034) ng/mL Procalcitonin ng/mL Microbiology - Last 24 Hours (Table) 04/22/23 15:39 Blood Culture - Preliminary Blood
--- NOTE | 2023-04-24 13:56 | P.PN ---
Subjective 77-year-old male resident of a senior care was brought in because of hypoxemia found to have a low blood pressure as well patient is oxygen saturations dropped to as low as 80%. Patient is found to have perihilar infiltrate patient usually is alert oriented 2 with history Breast dementia is a concern about aspiration. Patient was started on Zosyn. Patient is completely confused at this time. He is alert oriented 1. Patient had a lactic acidosis which improved patient is positive for COVID-19. Patient was recently discharged from the hospital after he was treated for pneumonia. Patient does have stroke and start failure with EF of around 45% was in the on IV fluids which will be discontinued. Patient's serum creatinine is around 1.8 patient is on anti-coagulation with Xarelto. CT of the head on admission didn't show any acute stroke patient is definitely confused more confused than his baseline. Patient's EKG is within normal limits but her troponin is minimally elevated to 0.092 because of which cardiology was consulted. 04/24/2023 Patient's overall clinical condition continued to get worse and patient is much less arousable, renal function worsened. Had a lengthy discussion with the his . Patient baseline mental status is poor patient functionality is externally poor patient appears to have advanced dementia patient is a senior care resident. After lengthy discussion with the who makes medical issues with the patient, hospice was consulted. Patient has elevated troponin up to 2.4. REVIEW OF SYSTEMS: Unable to obtain PHYSICAL EXAMINATION: GENERAL: Excessively sleepy unable to assess orientation, not in any acute distress. Well developed, well nourished. HEENT: Pupils are round and equally reacting to light. EOMI. No scleral icterus. No conjunctival pallor. Normocephalic, atraumatic. No pharyngeal erythema. No thyromegaly. CARDIOVASCULAR: S1 and S2 present. No murmurs, rubs, or gallops. PULMONARY: Chest is clear to auscultation, no wheezing or crackles. ABDOMEN: Soft, nontender, nondistended, normoactive bowel sounds. No palpable organomegaly. MUSCULOSKELETAL: No joint swelling or deformity. EXTREMITIES: No cyanosis, clubbing, or pedal edema. NEUROLOGICAL: Obtunded SKIN: No rashes. Assessment and plan Hospice was consulted, patient prognosis is extremely poor with advanced dementia and poor functional status -Acute hypoxic respiratory failure on admission most probably secondary to COVID-19 pneumonia and aspiration may have contributed to his symptoms as of presently not requiring oxygen. -Possible aspiration pneumonia for which patient and Zosyn -Altered mental status: Most probably secondary to toxic encephalopathy, aspiration and COVID-19. -Aspiration: -Vascular dementia: Advanced , poor prognosis poor functional status, hospice evaluation -Congestive heart failure chronic systolic dysfunction without any acute exacerbation IV fluids will be discontinued -Chronic kidney disease stage 3+ -mild elevated troponin possibility of type I acute [place] cannot be ruled out -History of DVT patient is on Eliquis -Type 2 diabetes mellitus long-acting insulin will be discontinued and patient will be on sliding scale insulin -Hyperlipidemia -Hypertension -Acute renal failure - DVT prophylaxis: As mentioned above Objective - Vital Signs Vital signs: Vital Signs Temp 98.3 F 04/24/23 08:00 Pulse 103 H 04/24/23 12:00 Resp 16 04/24/23 12:00 BP 201/96 04/24/23 12:00 Pulse Ox 97 04/24/23 12:00 FiO2 100 04/22/23 15:22 Intake & Output 04/23/23 04/24/23 04/24/23 18:59 06:59 18:59 Intake Total 10 Balance 10 Intake: IV 10 Invasive Line 2 10 Other: # Voids 1 1 # Bowel Movements 1 - Labs CBC & Chem 7: 04/24/23 06:44 04/24/23 06:44 Labs: Abnormal Lab Results - Last 24 Hours (Table) 04/23/23 04/23/23 04/23/23 Range/Units 12:14 14:50 16:42 WBC (3.8-10.6) k/uL Hgb (13.0-17.5) gm/dL RDW (11.5-15.5) % Sodium (137-145) mmol/L Chloride (98-107) mmol/L Carbon Dioxide (22-30) mmol/L BUN (9-20) mg/dL Creatinine (0.66-1.25) mg/dL Glucose (74-99) mg/dL POC Glucose (mg/dL) 184 H (70-110) mg/dL Magnesium (1.6-2.3) mg/dL Troponin I 2.400 H* (0.000-0.034) ng/mL Procalcitonin 0.57 H ng/mL 04/23/23 04/23/23 04/24/23 Range/Units 19:55 23:07 05:51 WBC (3.8-10.6) k/uL Hgb (13.0-17.5) gm/dL RDW (11.5-15.5) % Sodium (137-145) mmol/L Chloride (98-107) mmol/L Carbon Dioxide (22-30) mmol/L BUN (9-20) mg/dL Creatinine (0.66-1.25) mg/dL Glucose (74-99) mg/dL POC Glucose (mg/dL) 161 H 142 H 137 H (70-110) mg/dL Magnesium (1.6-2.3) mg/dL Troponin I (0.000-0.034) ng/mL Procalcitonin ng/mL 04/24/23 04/24/23 04/24/23 Range/Units 06:44 06:44 11:58 WBC 10.9 H (3.8-10.6) k/uL Hgb 12.8 L (13.0-17.5) gm/dL RDW 18.0 H (11.5-15.5) % Sodium 147 H (137-145) mmol/L Chloride 117 H (98-107) mmol/L Carbon Dioxide 16 L (22-30) mmol/L BUN 40 H (9-20) mg/dL Creatinine 2.17 H (0.66-1.25) mg/dL Glucose 152 H (74-99) mg/dL POC Glucose (mg/dL) 158 H (70-110) mg/dL Magnesium 2.6 H (1.6-2.3) mg/dL Troponin I (0.000-0.034) ng/mL Procalcitonin ng/mL Microbiology - Last 24 Hours (Table) 04/22/23 15:39 Blood Culture - Preliminary Blood
[2023-04-24 16:30] LABS: Glucose,Whole Blood 165 mg/dL (70-110)
[2023-04-24] MEDS: ATORVASTATIN 40 MG TAB PO SCH (20:01)
[2023-04-24] MEDS: TAMSULOSIN 0.4 MG CAP.ER.24H PO SCH (20:02)
[2023-04-24 20:04] LABS: Glucose,Whole Blood 173 mg/dL (70-110)
[2023-04-24] MEDS ORDERED: APIXABAN 2.5 MG TABLET PO SCH (21:00)
[2023-04-24] MEDS: DEXTROSE 5% IN WATER 1,000 ML with SODIUM BICARB (1 MEQ/ML) 150 ML IV SCH (23:42)
[2023-04-25] MEDS: hydrALAZINE HCL 20 MG/ML 1 ML VIAL IVP PRN ×2 (04:01→09:11)
[2023-04-25] MEDS: DEXTROSE 5% IN WATER 1,000 ML with SODIUM BICARB (1 MEQ/ML) 150 ML IV SCH (05:37)
[2023-04-25 05:54] LABS: Glucose,Whole Blood 155 mg/dL (70-110)
[2023-04-25] MEDS: INSULIN ASPART (NovoLOG) 100 UNIT/ML VIAL SQ SCH ×2 (06:24→12:42)
[2023-04-25] MEDS: ALBUTEROL HFA INHALER INHALATION SCH ×3 (07:57→15:29)
[2023-04-25] MEDS: PIPERACILLIN-TAZOBACTAM 3.375 GM in SODIUM CHLORIDE 0.9% 100 ML IVPB SCH (09:10)
[2023-04-25] MEDS: DEXAMETHASONE SOD PHOSPHATE 10 MG/ML 1 ML VIAL IVP SCH (09:11)
[2023-04-25 10:24] VITALS: RESP 16
--- NOTE | 2023-04-25 10:31 | P.PN ---
Progress Note - Text Progress Note Date: 04/25/23 Dr. Fontenot was on service over this past weekend and neurology was consulted on 04/23/23 for AMS but according to Dr. Fontenot she stated the consult was supposed to be cancelled since patient will be hospice. I spoke with the nurse and she stated the patient is going for hospice today and no need for neurology. Please notify neurology team if any further concerns.
[2023-04-25 12:11] LABS: Glucose,Whole Blood 202 mg/dL (70-110)
--- NOTE | 2023-04-25 12:35 | P.PN ---
Subjective HISTORY OF PRESENTING ILLNESS This is a very confused 77-year-old gentleman who follows with Dr. Murillo in the office. HPI was obtained mostly from the chart and nursing staff. He is a resident at an extended care facility. He was recently hospitalized with right lower lobe pneumonia felt to be related to aspiration at which time he had a failed swallow study. Presents this admission with after noted to be hypoxic and hypotensive at the care facility. 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 He is anticoagulated due to history of DVT. On admission renal function was worse compared to baseline. Blood pressure was in the 70s and he was hypoxic. NT proBNP was elevated at 26,400. Troponin yesterday was 0.092. repeat this morning came back at 2.63. It is unclear if patient has had any anginal pain. He has been found be positive for COVID. EKG on admission showed sinus mechanism with evidence of prior MN. Computed tomography scan of the brain showed age-related atrophic and chronic small vessel ischemic change without acute intracranial process. More confused compared to his baseline. Chest x-ray showed right infrahilar density persist which may reflect underlying infiltrate although there may be slight improvement in the interval. His blood pressure today has been elevated. He's had angioedema with lisinopril and also has ALLERGY listed to amlodipine. Labs revealed white count of 12,900, BUN 31, creatinine 1.79. 6/5 Seen and examined. Not answering questions. His Imdur was increased from 60 mg daily up to 60 mg twice a day. Blood pressure extremely elevated 200s over 90s. Patient has not been receiving his oral medications. PHYSICAL EXAMINATION Vital signs reviewed. CONSTITUTIONAL: No apparent distress, confused HEENT: Head is normocephalic. Pupils are equal, round. Sclerae anicteric. Mucous membranes of the mouth are moist. No JVD. No carotid bruit. CHEST EXAMINATION: Lungs are clear to auscultation. No chest wall tenderness is noted on palpation or with deep breathing. HEART EXAMINATION: Regular rate and rhythm. S1, S2 heard. No murmurs, gallops or rub. ABDOMEN: Soft, nontender. Positive bowel sounds. EXTREMITIES: 2+ peripheral pulses, no lower extremity edema and no calf tenderness. NEUROLOGIC EXAMINATION: Patient is confused Assessment: #1: COVID infection #2 recent aspiration pneumonia #3 troponin elevation of unclear etiology in a patient with known severe multivessel CAD who is not a candidate for surgical or percutaneous intervention. #4 worsening confusion, neurology on consult #5 history of DVT anticoagulated #6 hypertension #7 hyperlipidemia #8 diabetes #9 PAD Plan: Patient was increased on Imdur however has not been taking his oral medications. Patient was made hospice and family did not want aggressive interventions. Defer management of hypertension, oral medications to hospice. May consider clonidine patch however would unclear if this would give much palliation. Please call with questions. Objective - Vital Signs Vital signs: Vital Signs Temp 97.7 F 04/25/23 08:00 Pulse 110 H 04/25/23 08:00 Resp 16 04/25/23 08:00 BP 208/110 04/25/23 08:00 Pulse Ox 98 04/25/23 08:00 FiO2 100 04/22/23 15:22 Intake & Output 04/24/23 04/25/23 04/25/23 18:59 06:59 18:59 Other: # Voids 1 1 - Labs CBC & Chem 7: 04/24/23 06:44 04/24/23 06:44 Labs: Abnormal Lab Results - Last 24 Hours (Table) 04/24/23 04/24/23 04/25/23 Range/Units 16:28 20:02 05:52 POC Glucose (mg/dL) 165 H 173 H 155 H (70-110) mg/dL 04/25/23 Range/Units 12:09 POC Glucose (mg/dL) 202 H (70-110) mg/dL Microbiology - Last 24 Hours (Table) 04/23/23 12:14 Blood Culture - Preliminary Blood 04/22/23 15:39 Blood Culture - Preliminary Blood
[2023-04-25 13:50] VITALS: PULSE 108
--- NOTE | 2023-04-25 13:54 | P.PN ---
Subjective Progress Note Date: 04/25/23 CHIEF COMPLAINT: Aspiration HISTORY OF PRESENT ILLNESS: Surgical service was consulted for possible PEG tube placement. Patient has known dementia. There are concerns for possible aspiration pneumonia. Also respiratory failure and COVID-19 pneumonia. Swallow evaluation was canceled due to patient likely going to hospice today. PHYSICAL EXAM: VITAL SIGNS: Reviewed. GENERAL: No acute distress ABDOMEN: Soft. Nondistended. Nontender. NEUROLOGIC: Alert and oriented. Cranial nerves II through XII grossly intact. ASSESSMENT: 1. Aspiration pneumonia 2. Dysphagia 3. Moderate protein calorie malnutrition PLAN: -No plans for PEG tube at this time. -Patient and family are in the process of proceeding with hospice care Physician Case Advocate note has been reviewed by physician. Signing provider agrees with the documented findings, assessment, and plan of care. Objective - Vital Signs Vital signs: Vital Signs Temp 97.7 F 04/25/23 08:00 Pulse 110 H 04/25/23 08:00 Resp 16 04/25/23 08:00 BP 208/110 04/25/23 08:00 Pulse Ox 98 04/25/23 08:00 FiO2 100 04/22/23 15:22 Intake & Output 04/24/23 04/25/23 04/25/23 18:59 06:59 18:59 Other: # Voids 1 1 - Labs CBC & Chem 7: 04/24/23 06:44 04/24/23 06:44 Labs: Abnormal Lab Results - Last 24 Hours (Table) 04/24/23 04/24/23 04/25/23 Range/Units 16:28 20:02 05:52 POC Glucose (mg/dL) 165 H 173 H 155 H (70-110) mg/dL 04/25/23 Range/Units 12:09 POC Glucose (mg/dL) 202 H (70-110) mg/dL Microbiology - Last 24 Hours (Table) 04/22/23 15:30 Blood Culture Gram Stain - Preliminary Blood 04/22/23 15:39 Blood Culture - Preliminary Blood 04/23/23 12:14 Blood Culture - Preliminary Blood
--- NOTE | 2023-04-25 14:23 | P.PN ---
Subjective Progress Note Date: 04/25/23 Principal diagnosis: Recurrent aspiration pneumonia This patient was discharged on home on 04/20/2023 after being treated for a right lower lobe pneumonia that was considered to be aspiration. His swallow evaluation was done at that time and the patient had penetration with all consistencies. The patient was given Augmentin at time of discharge. He came into the emergency department yesterday with shortness of breath and hypoxemia and the patient's pulse ox was 86% on room air oxygen and the patient's initial blood pressure was 70/40. He was at the retirement. He demonstrated also lethargy. No reported fever. He did test however positive for Covid 19 during this current admission and a repeat chest x-ray was done that showed some limited infiltration of the right lung base although chest x-ray findings were improving. The patient is currently on 2 L of O2 nasal cannula. The patient did encounter also an episode of emesis and possible aspiration this morning as reported by the nursing staff. At the time on evaluation, the patient was stable and he did not have any labored breathing. Abdomen was soft and nontender. No abdominal pain or distention. No reported nausea. He is afebrile and hemodynamically stable. He is on 2 L of O2 nasal cannula and a white cell count is at 12.9 with a hemoglobin of 14.7, BUN is 30 over a creatinine of 1.7 and sodium levels of 142 and a potassium level is at 4.1. Noted the patient has an acute kidney injury from which she was recovering and he does have an underlying chronic kidney disease stage III. ProBNP level was 26,000 and troponin was at 0.09 at the time of his admission. Covid 19 was again positive. Noted the patient has been infected with Covid 19 in the past On today's evaluation of 04/24/2023, the patient is on room air oxygen. He is definitely aspirating. General surgery was consulted for possibility of a PEG tube insertion. The patient's WBC count of 10.9 with a hemoglobin 12.5. BUN is at 40 with a creatinine of 2.7 and sodium levels of 147. He has developed a component of mild hyperchloremic hypernatremia. He is on IV Zosyn. He is on Decadron. He will need to be started on IV fluids also. Reevaluated today on 04/25/2023, patient is on room air, O2 sats is 96%, and does not seem to be in any distress. My understanding is the patient supposed to have a PEG tube insertion, but the CODE STATUS has been changed and there is even a possibility that the patient may go for hospice. In the meantime the patient is on antibiotics in the form of Zosyn, he is on IV fluids, and we'll continue the same for now. If patient is being considered for hospice I think we should hold on the PEG tube placement for now. Considering his overall status, I fully agree with hospice care. Objective - Vital Signs Vital signs: Vital Signs Temp 97.9 F 04/25/23 12:00 Pulse 108 H 04/25/23 13:51 Resp 16 04/25/23 13:51 BP 208/103 04/25/23 12:00 Pulse Ox 96 04/25/23 12:00 FiO2 100 04/22/23 15:22 Intake & Output 04/24/23 04/25/23 04/25/23 18:59 06:59 18:59 Other: # Voids 1 1 - Exam GENERAL EXAM: 77-year-old in no distress on room air. HEAD: Normocephalic and atraumatic EYES: Normal reaction of pupils, equal size. NOSE: Clear with pink turbinates. THROAT: No erythema or exudates. NECK: No masses, no JVD. CHEST: No chest wall deformity. LUNGS: Crackles at the bases bilaterally. No wheezing. CVS: S1 and S2 normal with no audible murmur, regular rhythm. No extra heart sounds ABDOMEN: Soft nontender no megaly no rebound SKIN: No rashes CENTRAL NERVOUS SYSTEM: Patient is confused, can't get much information or cooperation from the patient for full neurological exam. EXTREMITIES: There is a left [id number] amputation. - Labs CBC & Chem 7: 04/24/23 06:44 04/24/23 06:44 Labs: Abnormal Lab Results - Last 24 Hours (Table) 04/24/23 04/24/23 04/25/23 Range/Units 16:28 20:02 05:52 POC Glucose (mg/dL) 165 H 173 H 155 H (70-110) mg/dL 04/25/23 Range/Units 12:09 POC Glucose (mg/dL) 202 H (70-110) mg/dL Microbiology - Last 24 Hours (Table) 04/22/23 15:39 Blood Culture Gram Stain - Preliminary Blood Blood Culture - Preliminary 04/22/23 15:30 Blood Culture Gram Stain - Preliminary Blood 04/23/23 12:14 Blood Culture - Preliminary Blood Assessment and Plan Assessment: Impression: Aspiration right lower lobe pneumonia with limited right lower lung airspace opacity. . 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 Time with Patient: Less than 30
--- NOTE | 2023-04-25 14:32 | P.DS ---
Providers Date of admission: 04/22/23 21:41 Expected date of discharge: 04/25/23 Attending physician: Shayne Juarez MD Consults: 04/22/23 21:41 Consult Physician Routine Consulting Provider: Andie Willard Consult Reason/Comments: Pneumonia, COVID-19 Do you want consulting provider notified?: Yes Consult Physician Routine Consulting Provider: Bethel Murillo Consult Reason/Comments: Elevated troponin Do you want consulting provider notified?: Yes, Notify in am 04/23/23 11:11 Consult Physician Routine Consulting Provider: Ehsan Julien Consult Reason/Comments: Aspitation &AMS Do you want consulting provider notified?: Yes 04/23/23 11:14 Consult Physician Routine Consulting Provider: Viraj Vo Consult Reason/Comments: PEG placement Do you want consulting provider notified?: Yes Primary care physician: Davon Rocha Hospital Course: Final diagnosis -Acute hypoxic respiratory failure on admission most probably secondary to COVID-19 pneumonia and aspiration may have contributed to his symptoms as of presently not requiring oxygen. -Possible aspiration pneumonia -Altered mental status: Most probably secondary to toxic encephalopathy, aspiration and COVID-19. -Vascular dementia: Advanced , poor prognosis poor functional status -Congestive heart failure chronic systolic dysfunction without any acute exacerbation -Chronic kidney disease stage 3 -mild elevated troponin possibility of type I acute IN cannot be ruled out -History of DVT patient is on Eliquis -Type 2 diabetes mellitus -Hyperlipidemia -Hypertension -Acute renal failure -No code Discharge disposition Patient is being discharged in a stable condition with guarded prognosis to [facility] on [facility] with [facility] hospice services. Patient will follow-up with Dr. Rocha in the outpatient setting upon discharge. Total time taken is greater than 35 minutes. Hospital course This is a 77-year-old male who was recently admitted with acute hypoxic respiratory failure most likely secondary to recent COVID-19 pneumonia and also high probability of aspiration pneumonia. Patient has had a steady clinical decline and initially surgery evaluating the patient for possible PEG tube although family and patient have requested hospice services and are agreeable to [facility] and will be going back to [facility] with hospice services only. Patient does have vascular dementia with overall poor prognosis and other significant medical comorbidities. Please refer to other consultations for further HPI. Patient is currently nothing by mouth and not able to tolerate oral intake and family again has agreed to hospice and met with [facility] services. Currently no reports of chest pain, shortness of breath, or palpitations. Patient is afebrile. Patient will be going to [facility] on the [facility] today. Poor prognosis and patient is no code Physical exam: Gen: This is a 77-year-old male who is awake, alert and oriented 1-2, ill- appearing, elderly appearing HEENT: Head is atraumatic, normocephalic. Pupils equal, round. Sclerae is anicteric. NECK: Supple. No JVD. No lymphadenopathy. No thyromegaly. LUNGS: Diminished breath sounds bilaterally with some scattered rhonchi noted No intercostal retractions. HEART: Regular rate and rhythm. No murmur. ABDOMEN: Soft. Bowel sounds are present. No masses. No tenderness. EXTREMITIES: No pedal edema. No calf tenderness. NEUROLOGICAL: Patient is awake, alert and oriented x3. Cranial nerves 2 through 12 are grossly intact. Please refer to medication reconciliation sheet for a list of medications. The impression and plan of care has been dictated by Martha Maloney, Nurse Practitioner as directed. Dr. Cory MD I have performed a history and examination and MDM of this patient, discussed the same with the dictator, and agree with the dictator's assessment and plan as written ,documented as a scribe. Based on total visit time, I have performed more than 50% of the visit. Patient Condition at Discharge: Poor Plan - Discharge Summary Discharge Rx Participant: No New Discharge Prescriptions: No Action Sennosides-Docusate Sodium [Senokot-S] 1 tab PO DAILY hydrALAZINE HCL [Apresoline] 100 mg PO TID@0900,1400,2200 Aspirin EC [Ecotrin Low Dose] 81 mg PO DAILY Prazosin HCl 4 mg PO TID@0900,1500,2230 Atorvastatin [Lipitor] 40 mg PO HS Cholecalciferol (Vitamin D3) [Vitamin D3 (125 MCG = 5,000 IU)] 125 mcg PO DAILY Isosorbide Mononitrate ER [Imdur] 60 mg PO DAILY Tamsulosin [Flomax] 0.4 mg PO HS Insulin NPH Hum/Reg Insulin Hm [humuLIN 70/30 Kwikpen] 27 units SQ DAILY@1700 calcitrioL [Calcitriol] 0.5 mcg PO MOWEFR@0900 cloNIDine HCL [Catapres] 0.3 mg PO TID@0900,1500,2100 Rivaroxaban [Xarelto] 20 mg PO HS #30 tab Lactulose [Constulose] 10 gm PO BID Ferrous Sulfate [Iron (65 MG Elemental)] 325 mg PO BID Multivitamins, Thera [Multivitamin (formulary)] 1 tab PO DAILY Dapagliflozin Propanediol [Farxiga] 5 mg PO DAILY Ipratropium-Albuterol Nebulize [Duoneb 0.5 mg-3 mg/3 ml Soln] 3 ml INHALATION RT-QID PRN PRN Reason: Shortness Of Breath Amoxic-Pot Clav 400-57Mg/5Ml [Augmentin 400-57 mg/5 ml Susp] 5 ml PO Q12H 5 Days #40 ml carvediloL [Coreg] 25 mg PO BID Ascorbic Acid [Vitamin C] 500 mg PO DAILY Lactose-Reduced Food [Ensure Plus] 237 ml PO DAILY Insulin NPH Hum/Reg Insulin Hm [humuLIN 70/30 Kwikpen] 35 unit SQ DAILY@0900 Discharge Medication List Aspirin EC [Ecotrin Low Dose] 81 mg PO DAILY 06/18/19 [History] Sennosides-Docusate Sodium [Senokot-S] 1 tab PO DAILY 06/18/19 [History] hydrALAZINE HCL [Apresoline] 100 mg PO TID@0900,1400,2200 06/18/19 [History] Prazosin HCl 4 mg PO TID@0900,1500,2230 09/05/19 [History] Atorvastatin [Lipitor] 40 mg PO HS 01/27/22 [History] Cholecalciferol (Vitamin D3) [Vitamin D3 (125 MCG = 5,000 IU)] 125 mcg PO DAILY 01/27/22 [History] Isosorbide Mononitrate ER [Imdur] 60 mg PO DAILY 01/27/22 [History] Tamsulosin [Flomax] 0.4 mg PO HS 01/27/22 [History] carvediloL [Coreg] 25 mg PO BID 01/27/22 [History] Insulin NPH Hum/Reg Insulin Hm [humuLIN 70/30 Kwikpen] 27 units SQ DAILY@1700 11/09/22 [History] calcitrioL [Calcitriol] 0.5 mcg PO MOWEFR@0900 12/23/22 [History] cloNIDine HCL [Catapres] 0.3 mg PO TID@0900,1500,2100 02/07/23 [History] Rivaroxaban [Xarelto] 20 mg PO HS #30 tab 02/09/23 [Rx] Ascorbic Acid [Vitamin C] 500 mg PO DAILY 04/16/23 [History] Dapagliflozin Propanediol [Farxiga] 5 mg PO DAILY 04/16/23 [History] Ferrous Sulfate [Iron (65 MG Elemental)] 325 mg PO BID 04/16/23 [History] Ipratropium-Albuterol Nebulize [Duoneb 0.5 mg-3 mg/3 ml Soln] 3 ml INHALATION RT-QID PRN 04/16/23 [History] Lactose-Reduced Food [Ensure Plus] 237 ml PO DAILY 04/16/23 [History] Lactulose [Constulose] 10 gm PO BID 04/16/23 [History] Multivitamins, Thera [Multivitamin (formulary)] 1 tab PO DAILY 04/16/23 [History] Amoxic-Pot Clav 400-57Mg/5Ml [Augmentin 400-57 mg/5 ml Susp] 5 ml PO Q12H 5 Days #40 ml 04/20/23 [Rx] Insulin NPH Hum/Reg Insulin Hm [humuLIN 70/30 Kwikpen] 35 unit SQ DAILY@0900 04/22/23 [History] Follow up Appointment(s)/Referral(s): Davon Rocha MD [Primary Care Provider] - 1-2 days Activity/Diet/Wound Care/Special Instructions: Patient is returning to [facility] with hospice services Activity as tolerated Discharge Disposition: TRANSFER TO SNF/ECF
[2023-04-25 16:24] VITALS: BP 192/107; TEMP 98.7
== END 2023-04-25 18:12 | DRG 177 ==
LOC: EC 15:17 → 3SCARD 21:41
PROVIDERS: ADMIT Internal Medicine; ATTEND Internal Medicine
PROC: 5A09357 Assistance with Respiratory Ventilation, Less than 24 Consecutive Hours, Continuous Positive Airway Pressure (ICD-10-PCS; principal; 2023-04-22)
DX: U07.1 COVID-19 (principal); G92.8 Other toxic encephalopathy; J69.0 Pneumonitis due to inhalation of food and vomit; J96.01 Acute respiratory failure with hypoxia; J12.82 Pneumonia due to coronavirus disease 2019; I21.4 Non-ST elevation (NSTEMI) myocardial infarction; I50.22 Chronic systolic (congestive) heart failure; I13.0 Hypertensive heart and chronic kidney disease with heart failure and stage 1 through stage 4 chronic kidney disease, or unspecified chronic kidney disease; E44.0 Moderate protein-calorie malnutrition; E87.20 Acidosis, unspecified; E87.0 Hyperosmolality and hypernatremia; N17.9 Acute kidney failure, unspecified; J44.9 Chronic obstructive pulmonary disease, unspecified; E11.22 Type 2 diabetes mellitus with diabetic chronic kidney disease; N18.30 Chronic kidney disease, stage 3 unspecified; E11.319 Type 2 diabetes mellitus with unspecified diabetic retinopathy without macular edema; T78.3XXA Angioneurotic edema, initial encounter; Z68.25 Body mass index [BMI] 25.0-25.9, adult; G31.89 Other specified degenerative diseases of nervous system; E78.5 Hyperlipidemia, unspecified; E86.0 Dehydration; I95.9 Hypotension, unspecified; F01.50 Vascular dementia, unspecified severity, without behavioral disturbance, psychotic disturbance, mood disturbance, and anxiety; E87.8 Other disorders of electrolyte and fluid balance, not elsewhere classified; R29.810 Facial weakness; E11.51 Type 2 diabetes mellitus with diabetic peripheral angiopathy without gangrene; I25.10 Atherosclerotic heart disease of native coronary artery without angina pectoris; I25.2 Old myocardial infarction; R13.10 Dysphagia, unspecified; Z51.5 Encounter for palliative care; Z79.01 Long term (current) use of anticoagulants; Z79.4 Long term (current) use of insulin; Z79.82 Long term (current) use of aspirin; Z79.84 Long term (current) use of oral hypoglycemic drugs; Z79.899 Other long term (current) drug therapy; Z82.49 Family history of ischemic heart disease and other diseases of the circulatory system; Z86.718 Personal history of other venous thrombosis and embolism; Z86.73 Personal history of transient ischemic attack (TIA), and cerebral infarction without residual deficits; Z89.612 Acquired absence of left leg above knee; Z91.199 Patient's noncompliance with other medical treatment and regimen due to unspecified reason; Z88.1 Allergy status to other antibiotic agents; Z88.8 Allergy status to other drugs, medicaments and biological substances; Z86.14 Personal history of Methicillin resistant Staphylococcus aureus infection; Z89.412 Acquired absence of left great toe; Z87.19 Personal history of other diseases of the digestive system
CPT/HCPCS: 36415; 70450; 71045; 80048; 80053; 82140; 82550; 82803; 83036; 83605; 83735; 83880; 84145; 84484; 85025; 85027; 87040; 87636; 93005; 94640; 94660; 94760; 96365; 96366; 99291